=== PATIENT | female | born 1945 | race Caucasian/White ===

== ENCOUNTER 2019-06-16 17:09 | Inpatient (IN) | payer MEDICARE, SELFPAY ==
[2019-06-16] VITALS (7 sets, daily range): BP systolic 154–198; BP diastolic 67–87; PULSE 80–89; RESP 13–17; TEMP 36.4–36.6; O2SAT 94–100; BMI 43.0; BMI 45.8
--- NOTE | 2019-06-16 17:17 | CT_ITS ---
STUDY: CT BRAIN WITHOUT CONTRAST REASON FOR EXAM: Female, 73 years old. Vertigo, nausea/vomiting today, hypertension, diabetes. RADIATION DOSAGE (If Supplied By Facility): CTDIvol = ( 44.99 ) mGy, DLP = ( 748.30 ) mGycm TECHNIQUE: Transaxial CT imaging of the brain was performed without administration of intravenous contrast material. Individualized dose optimization techniques were used for this CT. COMPARISON: 09/07/2016 FINDINGS: Normal soft tissue structures. Normal calvarium. Bilateral lens replacements. Normal size ventricles and extra-axial spaces for the patient''s age. There are areas of decreased attenuation within the white matter tracts of the supratentorial brain, consistent with microvascular disease changes. Normal age-related changes of the basal ganglia. Normal brainstem. Normal cerebellum. There is no intracranial hemorrhage. There are no findings of an acute ischemic infarction. Right maxillary and bilateral ethmoid sinus disease. CT/Brain/Head without Contrast IMPRESSION: No CT evidence of acute infarct or hemorrhage. If there is clinical concern for hyperacute ischemia that is not evident by CT, MRI should be considered if possible. Electronically Signed: Ervin Toledo MD at 18:48 EDT Tel , Service support ,
--- NOTE | 2019-06-16 17:17 | EKG12_ITS ---
Test Reason : Blood Pressure : / mmHG Vent. Rate : 081 BPM Atrial Rate : 081 BPM P-R Int : 164 ms QRS Dur : 084 ms QT Int : 422 ms P-R-T Axes : 049 042 049 degrees QTc Int : 490 ms Normal sinus rhythm Prolonged QT Abnormal ECG Confirmed by LILY LIPSCOMB, SOFIA ([id number]), makeup editor MYLENE ROMERO ([id number]) on 06/23/2019 11:12:47 AM Referred By: Confirmed By:CHERYL BAUTISTA MD
--- NOTE | 2019-06-16 17:19 | ED.VIS.GEN ---
History of Present Illness Chief Complaint: Nausea/Vomiting Informant: Patient Onset: Days Context: Sudden Onset Timing: Intermittent Current Severity: Moderate Maximum Severity: Moderate Narrative: The patient is a 73-year-old female with medical history significant for vertigo, diabetes, chronic kidney disease that presents to the emergency department with vertiginous symptoms. The patient states she had a significant flare last week. She states that she was taking [id number] Dramamine which seemed to help. Today, she was going to use the bathroom. She states that she sat down quickly, and had a sensation of motions. She states if she moves her head quickly, she gets the motion. She does describe some trouble with her balance, but denies any change in vision, or difficulty speaking. She denies any weakness. She has been to the emergency department multiple times for vertiginous symptoms in the past and states this feels similar. She is had no fever or other infectious symptoms. Prior similar symptoms: Yes Recent Illness/Hospitalization: Yes Past Medical History - Allergies and Home Meds Allergies/Adverse Reactions: Allergies Sulfa (Sulfonamide Antibiotics) Allergy (Verified 06/16/19 17:13) Rash lisinopril Adverse Reaction (Verified 06/16/19 17:13) Other Primary Care Physician: Flavia Aldrich MD [Primary Care Provider] - Prior records reviewed: Yes Past Medical History: - - Diabetes, vertigo, chronic kidney disease Surgical History: - - Cataract surgery bilaterally. Smoking Status: Never smoker - Family History Maternal Family History: Reports: Diabetes, Heart Disease, Hypertension Paternal Family History: Reports: High Cholesterol Review of Systems General: Denies: Chills, Fever, Sweats Eyes: Denies: Visual changes - bilaterally, Diplopia ENT: Reports: Bilateral ear pain Cardiovascular: Denies: Chest pain, Palpitations Respiratory: Denies: Dyspnea, Cough, Dyspnea on exertion Gastrointestinal: Reports: Nausea, Vomiting Genitourinary: Denies: Dysuria, Hematuria, Frequency Musculoskeletal: Denies: Back pain, Extremity Pain Skin: Denies: Rash, Wounds Neurological: Denies: Headache, Weakness, Numbness Physical Exam Vital Signs/Narrative: Vital Signs Temp Pulse Resp BP Pulse Ox 06/16/19 17:10 97.6 F L 80 13 179/73 H 100 Inital Vital Signs reviewed: Yes General: Well nourished, Well developed, No Acute Distress Head: Normocephalic, Atraumatic Eyes: Perrl, EOMI ENT: Moist mucous membranes, No rhinorrhea Neck: Supple, Nontender Cardiovascular: Regular rate, Regular rhythm, No murmurs Respiratory: No distress, CTA bilaterally, Chest nontender Abdomen: Soft, Nontender, Nondistended, Normal bowel sounds Back: Nontender, Normal Inspection Extremities: Nontender, No edema Skin: Normal color, No rash Neurological: Alert, Oriented x3, Cranial nerves II-XII grossly intact, Normal Strength, Normal Sensation Psychological: Normal affect, Normal Mood Diagnostic/Tx/Re-eval Clinical Impression(s) from Imaging Studies Brain CT 06/16/19 17:17 IMPRESSION: No CT evidence of acute infarct or hemorrhage. If there is clinical concern for hyperacute ischemia that is not evident by CT, MRI should be considered if possible. Electronically Signed: Ervin Toledo MD at 18:48 EDT Tel , Service support , - Medical Decision Making The patient presents to the emergency department vertiginous symptoms. She does have a history of the same. She states that she had similar symptoms last week, and they abated, but returned today. He has an NIH of 0. She does not have any focal neurologic complaints. However, with rapid head movement, she does have the sensation of motion and rapid left beating nystagmus when looking to the right. IV was established. The patient was given Valium and Zofran. She was feeling improved, but when we attempted to ambulate the patient, she got acutely nauseated and had return of sensation of motion and did vomit. Head CT was obtained which showed chronic change without acute abnormality. Her urine does show some evidence of ketones, and she does have mild renal insufficiency which is chronic. At this point, given the patient's advanced age and her inability to ambulate with her persistent vertiginous symptoms, I do feel that she would benefit from observation. The patient was discussed with the hospitalist. Impression 1. Intractable vertigo ED Disposition - Plan for ED Patient: Referrals: Flavia Aldrich MD [Primary Care Provider] -
[2019-06-16 17:55] LABS: Mucous, Urine 0 SEEN /hpf (<or=2+); Red Blood Cells-Urine 0 SEEN /hpf (0-5)
[2019-06-16 17:58] LABS: Color, Urine Yellow (Yellow); Glucose, Dipstick 250 mg/dl (Normal); Ketone-Dipstick 50 mg/dl (Negative); Leukocyte Esterase-Dipstick 25 /ul (Negative); Nitrite-Dipstick Negative (Negative); Occult Blood-Urine 25 /ul (Negative); Protein-Dipstick 500 mg/dl (Negative); Specific Gravity, Urine 1.025 (1.002-1.030); Urine Bilirubin Dipstick Negative (Negative); Urine Clarity Cloudy (Clear); Urine Urobilinogen Normal (Normal)
[2019-06-16] MEDS: Meclizine HCl 25 MG Tablet PO ×2 (17:58→22:56)
[2019-06-16] MEDS: diazePAM 5 MG Tablet PO (17:58)
[2019-06-16 18:08] LABS: Bacteria 3+ /hpf (None Seen); Squamous Epithelial Cells - UA 0-5 SEEN /hpf (5-10); White Blood Cells 10-25 SEEN /hpf (0-5)
[2019-06-16] MEDS: Ondansetron 4 MG/2 ML Vial IV (18:12)
[2019-06-16 18:20] LABS: Absolute Lymphocyte Count 0.76 X10^3/uL (0.83-4.51); Absolute Neutrophil Count 9.3 X10^3/uL (2.0-7.7); Basophil# 0.02 X10^3/uL; Basophil% 0.2 % (0-1); Eosinophil# 0.02 X10^3/uL; Eosinophils% 0.2 % (0-5); Hematocrit 37.4 % (37-47); Hemoglobin 11.9 g/dL (12.0-15.0); Lymphocyte # 0.76 X10^3/ul (4.0); Lymphocyte % 7.4 % (19-41); Mean Corp Hgb Conc 31.8 g/dL (32-36); Mean Corpuscular Hgb 27.8 pg (27.0-32.0); Mean Corpuscular Volume 87.4 fL (81-99); Mean Platelet Vol. 10.1 fl (6.2-12.0); Monocyte# 0.22 X10^3/uL; Monocyte% 2.1 % (0-10); NRBC Flagged by Analyzer 0 % (0-5); Neutrophil # 9.25 X10^3/uL (2.7-7.7); Neutrophil % 89.5 % (47-70); Platelet Count 301 K/mm3 (150-450); RBC Distribution Width CV 13.9 % (11.6-14.6); RBC Distribution Width SD 44.2 fl (35.1-43.9); Red Blood Count 4.28 M/mm3 (4.2-5.4); White Blood Count 10.3 K/mm3 (4.4-11.0)
[2019-06-16 18:35] LABS: BUN 29 mg/dL (7-18); Creatinine, Serum 1.37 mg/dL (0.55-1.02); Glucose 281 mg/dL (74-106)
[2019-06-16 18:36] LABS: ALB/GLOB Ratio 0.6 RATIO (0.9-2.4); AST(SGOT) 16 U/L (15-37); Alanine Aminotransfer ALT/SGPT 18 U/L (13-56); Albumin, Serum 3.2 g/dL (3.2-5.0); Alkaline Phosphatase 94 U/L (45-117); Anion Gap 8 (5-15); BUN/Creat Ratio 21.2 RATIO (10-20); Calcium,Total 9.4 mg/dL (8.5-10.1); Chloride 106 mmol/L (98-107); EST Glomerular Filtration Rate 40 mL/min (>60); Est Glom Filt Rate - Afr Amer 48 mL/min (>60); Globulin 5.1 g/dL (2.2-4.2); Potassium 4.8 mmol/L (3.5-5.1); Protein, Total 8.3 g/dL (6.4-8.2); Sodium Level 139 mmol/L (136-145)
--- NOTE | 2019-06-16 19:18 | HP.PCM_ITS ---
Problem List (1) Vertigo Status: Acute (2) CKD (chronic kidney disease), stage III Status: Chronic (3) Diabetes mellitus, type II Status: Chronic Qualifiers: Diabetes mellitus intermediate insulin use: without emt intermediate use Diabetes mellitus complication status: with unspecified complications (4) GERD (gastroesophageal reflux disease) Status: Chronic Qualifiers: Esophagitis presence: esophagitis presence not specified Qualified Code(s): K21.9 - Gastro-esophageal reflux disease without esophagitis (5) HLD (hyperlipidemia) Status: Chronic Qualifiers: Hyperlipidemia type: unspecified Qualified Code(s): E78.5 - Hyperlipidemia, unspecified (6) HTN (hypertension) Status: Chronic Qualifiers: Hypertension type: essential hypertension Qualified Code(s): I10 - Essential (primary) hypertension (7) Morbid obesity with BMI of 40.0-44.9, adult Status: Chronic History of Present Illness Date of Admission: 06/16/19 Chief Complaint: vertigo The patient is a 73 year old F with a significant history of hypertension; diabetes mellitus; hyperlipidemia; benign positional vertigo who presented to emergency department with vertiginous symptoms that started a week before presentation and re-occurred on the day of presentation. Associated with his symptoms is tinnitus; nausea and vomiting. In the past she had tinnitus of the left ear. However on this presentation her tinnitus began from the left ear and progressed to her right ear. Emergent department doctor reported that with manipulation of her head patient became vertiginous and had nystagmus. She vomited at the emergency department. At the emergency department when an attempt was made for patient to ambulate she became excessively vertiginous so a decision was made to admit patient. On 09/07/2016 patient was admitted at a hospital and discharged on 09/10/2016. At that visit she was managed for BPPV. Past Medical History Past Medical History (Chronic Problems): Chronic Problems Diabetes mellitus, type II (Chronic) HTN (hypertension) (Chronic) HLD (hyperlipidemia) (Chronic) GERD (gastroesophageal reflux disease) (Chronic) Morbid obesity with BMI of 40.0-44.9, adult (Chronic) CKD (chronic kidney disease), stage III (Chronic) Allergies Sulfa (Sulfonamide Antibiotics) Allergy (Verified 06/16/19 17:13) Rash lisinopril Adverse Reaction (Verified 06/16/19 17:13) Other Home Medications: Ambulatory Orders Medication Instructions Recorded Amlodipine [Norvasc] 5 mg PO DAILY 09/07/16 Atenolol [Tenormin (beta vick)] 50 mg PO DAILY 09/07/16 glipiZIDE [Glucotrol] 5 mg PO BIDAC 09/07/16 Multivitamin [Multiple Vitamins] 1 each PO DAILY 09/08/16 glipiZIDE [Glucotrol] 10 mg PO LUNCH 09/08/16 Diazepam [Valium] 2 mg PO TID PRN PRN #10 tablet 09/10/16 Esomeprazole Magnesium [Nexium 20 mg PO QODAY 06/16/19 24Hr] Losartan Potassium 50 mg PO DAILY 06/16/19 Metformin HCl 500 mg PO BID 06/16/19 Simvastatin [Zocor] 20 mg PO QHS 06/16/19 Sitagliptin Phosphate [Januvia] 50 mg PO DAILY 06/16/19 Surgical History: - - Cataract surgery bilaterally. Psychiatric History: No pertinent psych hx MD DO [facility]IDENT [facility] History: No pertinent MD DO [facility]IDENT [facility] history Lives: Alone Smoking Status: Never smoker - *Family History Maternal History Items: Diabetes, Heart Disease, Hypertension Paternal History Items: High Cholesterol Review of Systems Constitutional: Denies: Chills, Fever, Weight Change HEENT: Denies: Head Aches, Sinus Congestion, Sinus Drainage Cardiovascular: Denies: Chest Pain, Palpitations Respiratory: Denies: Cough, Shortness of breath at rest, Sputum production Gastrointestinal: Reports: Nausea, Vomiting. Denies: Abdominal Pain Genitourinary: Denies: Dysuria Musculoskeletal: Denies: Joint Pain, Joint Tenderness Skin: Denies: Rash, Wounds Neurological: Denies: Numbness, Tingling, Focal weakness Psychiatric: Denies: Anxiety, Depression, Homicidal Ideations, Suicidal Ideations Hematologic/ Lymphatic: Denies: Easy Bruising, Easy Bleeding VTE Information - Inpt Only VTE Present on Admission: No VTE Mechan Device Prophylaxis: None VTE Pharm Prophylaxis ordered?: Yes - Physical Exam Vitals/I&O's: Vital Signs Temp Pulse Resp BP Pulse Ox 97.6 F L 80 13 179/73 H 100 06/16/19 17:10 06/16/19 17:10 06/16/19 17:10 06/16/19 17:10 06/16/19 17:10 Oxygen Delivery Method Room Air Weight: 110.2 kg Body Mass Index (BMI) 43.0 General: Alert, Oriented x3, Cooperative HEENT: Atraumatic, PERRLA, EOMI, Normocephalic Neck: Supple, No JVD, Negative Carotid Bruits Lungs: Clear to auscultation, Normal air movement Cardiovascular: Regular rate, Normal S1, Normal S2, No murmurs Abdomen: Bowel Sounds Present, Soft, Non Tender Extremities: No edema, Capillary Refill Less than 3 Seconds Skin: No rashes, No breakdown Musculoskeletal: No Tenderness to Palpation of Joints or Extremities Neurological: Cranial nerves II-XII grossly intact, - - Strength 5 out of 5 throughout except left leg where motor strength is 4 out of 5 (patient reports a chronic from fall). No dysmetria. Psych/Mental Status: Normal Affect, Appropriate Laboratory Results 06/16/19 17:45: Urine Color Yellow, Urine Clarity Cloudy, Urine pH 5.0, Ur Specific [place] 1.025, Urine Protein 500 H, Urine Glucose (UA) 250 H, Urine Ketones 50 H, Urine Occult Blood 25 H, Urine Nitrite Negative, Urine Bilirubin Negative, Urine Urobilinogen Normal, Ur Leukocyte Esterase 25 H, Urine RBC Pending, Urine WBC Pending, Ur Squamous Epith Cells Pending, Urine Bacteria Pending, Urine Mucus Pending 06/16/19 18:05: WBC 10.3, RBC 4.28, Hgb 11.9 L, Hct 37.4, MCV 87.4, MCH 27.8, MCHC 31.8 L, RDW Std Deviation 44.2 H, RDW Coeff of Umu 13.9, Plt Count 301, MPV 10.1, Immature Gran % (Auto) 0.600, Neut % (Auto) 89.5 H, Lymph % (Auto) 7.4 L, [place] % (Auto) 2.1, Eos % (Auto) 0.2, Baso % (Auto) 0.2, Absolute Neuts (auto) 9.3 H, Absolute Lymphs (auto) 0.76 L, Nucleated RBC % 0 06/16/19 18:05: Sodium 139, Potassium 4.8, Chloride 106, Carbon Dioxide 25.0, Anion Gap 8, BUN 29 H, Creatinine 1.37 H, Estim Creat Clear Calc 29.80, Est GFR (MDRD) Af Amer 48 L, Est GFR (MDRD) Non-Af 40 L, BUN/Creatinine Ratio 21.2 H, Glucose 281 H, Calcium 9.4, Total Bilirubin 0.50, AST 16, ALT 18, Alkaline Phosphatase 94, Total Protein 8.3 H, Albumin 3.2, Globulin 5.1 H, Alb umin/Globulin Ratio 0.6 L Assessment/Plan All Active Problems Vertigo (Acute) The patient is a 73 year old F with a significant history of hypertension; diabetes mellitus; hyperlipidemia; benign positional vertigo who presented to emergency department with vertiginous symptoms; primary trauma; nausea and vomiting consistent with likely previous episode of BPPV. Vertigo Likely from BPPV. Because of her risk factors of hypertension diabetes mellitus and hyperlipidemia we will get MRI of brain. Will put on permissive hypertension with labetalol as needed and hold home blood pressure medications. However it is more likely that patient's symptoms is peripheral as above. Reportedly at home she was taking some anti-vertiginous medication. Placed on scheduled meclizine and PRN diazepam. Antiemetics with PRN Zofran and PRN Compazine. Will get MRI of brain. CKD stage III Likely from hypertension nephrosclerosis and diabetes nephropathy Likely within baseline. Will give gentle IV hydration and repeat BMP in a.m. Diabetes mellitus Urinalysis is remarkable for proteinuria and glycosuria Presentation blood glucose was not within goal. Hold home metformin in hospital setting. Placed on correction scale insulin. Home Glucotrol; Continued. On DPP 4 inhibitors. Microhematuria On discharge recommend repeat urinalysis and follow-up with PCP. DVT Prophylaxis Subcutaneous Lovenox. OBSV E&M: 95530 Initial observation care L3
[2019-06-16] MEDS: 0.9% Normal Saline 1,000 ML 75 ML IV (20:03)
--- NOTE | 2019-06-16 20:16 | ED.RN ---
WILLIS ISAACS NOTIFIED OF PT'S ADMIT TO ROOM 109 PCU
[2019-06-16] MEDS: Insulin Lispro 100 UNIT/ML INSULN.PEN SC (22:55)
[2019-06-16 22:56] LABS: Bedside Glucose 198 mg/dL (70-110)
[2019-06-16] MEDS: Atorvastatin Calcium 10 MG Tablet PO (22:56)
[2019-06-17] VITALS (12 sets, daily range): BP systolic 108–167; BP diastolic 52–78; PULSE 71–91; RESP 16–18; TEMP 36.6–37; O2SAT 94–98; BMI 45.8
[2019-06-17 06:28] LABS: BUN 26 mg/dL (7-18); Creatinine, Serum 1.22 mg/dL (0.55-1.02); Estimated Creatinine Clearance 29.06 ml/min; Glucose 119 mg/dL (74-106)
[2019-06-17 06:29] LABS: Anion Gap 7 (5-15); BUN/Creat Ratio 21.3 RATIO (10-20); Calcium,Total 8.7 mg/dL (8.5-10.1); Chloride 109 mmol/L (98-107); EST Glomerular Filtration Rate 46 mL/min (>60); Est Glom Filt Rate - Afr Amer 55 mL/min (>60); Potassium 3.9 mmol/L (3.5-5.1); Sodium Level 139 mmol/L (136-145)
[2019-06-17] MEDS: Meclizine HCl 25 MG Tablet PO (06:42)
[2019-06-17] MEDS: glipiZIDE 5 MG Tablet PO ×2 (06:42→16:18)
[2019-06-17 07:01] LABS: Bedside Glucose 104 mg/dL (70-110)
--- NOTE | 2019-06-17 08:00 | MRI_ITS ---
We are attempting to reach an attending provider to discuss findings. An addendum with communication details will be sent when the communication is complete. STUDY: MRI BRAIN WITHOUT CONTRAST REASON FOR EXAM: Female, 73 years old. vertigo TECHNIQUE: Standardized multiplanar fat and water weighted pulse sequences were obtained. COMPARISON: 06/16/2019 CT of the head FINDINGS: There is mild cerebral atrophy with widening of the extra-axial spaces and ventricular dilatation. There are multiple white matter hyperintensities, distributed throughout the deep white matter tracts of the cerebral hemispheres, consistent with moderate chronic white matter ischemic changes. There is approximately 5 cm restricted diffusion of the superior right cerebellar hemisphere and vermis with drop of signal on ADC map, consistent with acute infarct. Normal bilateral basal ganglia. Normal thalami. There is no extra-axial fluid accumulation. Normal flow voids within the major intracranial circulation suggesting patency by spin echo criteria. Normal sella turcica, pituitary gland, infundibular stalk, optic chiasm and hypothalamus. Normal tectal plate and pineal gland. Normal midbrain, tasha and medulla. There is moderate paranasal sinus disease. MRI/Brain without Contrast IMPRESSION: Acute right cerebellar infarct. Electronically Signed: Carole Workman MD at 10:35 EDT Tel , Service support ,
[2019-06-17] MEDS: LINAGLIPTIN 5 MG TABLET PO (08:10)
[2019-06-17] MEDS: Enoxaparin 40 MG/0.4 ML Syringe SC (08:10)
[2019-06-17] MEDS: LORazepam 2 MG/ML Syringe 1 MG IV (08:20)
[2019-06-17] MEDS: Insulin Lispro 100 UNIT/ML INSULN.PEN SC ×3 (11:16→22:13)
[2019-06-17 11:35] LABS: Bedside Glucose 219 mg/dL (70-110)
--- NOTE | 2019-06-17 11:45 | ECHOCS_ITS ---
Reason For Study: TIA/CVA Procedure This was a 2D Doppler, Color Flow transthoracic echocardiogram. The study was technically difficult. Exam performed portable in patient room. Left Ventricle Normal LV size. Sigmoid septum. The estimated ejection fraction is 60 %. Stage 2 diastolic dysfunction. No regional wall motion abnormalities noted. Right Ventricle Normal RV size. Normal systolic function. Atria The left atrium is mildly enlarged. Normal right atrium. Mitral Valve There is moderate to severe mitral annular calcification. Tricuspid Valve Normal tricuspid valve. Aortic Valve Trisinus/trileaflet aortic valve. Mild focal aortic valve calcification. Great Vessels Normal aortic root. The pulmonary artery is normal size. Normal inferior vena cava. Pericardium/Pleural No pericardial effusion. Medication Performed a rapid injection of agitated mix of 9 cc saline and 1cc air to assess for atrial septal defect. Diluted definity 5ml given slow IV push to enhance endocardial definition. MMode/2D Measurements & Calculations LVIDd: 4.3 cm IVSd: 1.5 cm Ao root diam: 2.9 cm LVIDs: 2.5 cm LVPWd: 1.0 cm RVDd: 2.9 cm FS: 40.7 % LAV(MOD-bp): 81.3 ml LA A4 area: 24.2 cm2 LA dimension(2D): 3.9 cm LAV(MOD-bp) Indexed: 40.7 ml/m2 LAV(MOD-sp2): 83.2 ml LAV(MOD-sp4): 76.7 ml RA A4 area: 16.8 cm2 Doppler Measurements & Calculations MV E max gregory: 152.6 cm/sec Lat Peak E' Gregory: 4.8 cm/sec Med Peak E' Gregory: 3.6 cm/sec MV A max gregory: 158.0 cm/sec E/E' lat: 31.5 E/E' med: 42.1 MV E/A: 0.97 MV V2 max: 176.0 cm/sec MV P1/2t max gregory: 145.8 cm/sec Ao V2 max: 165.5 cm/sec MV max P.4 mmHg MV P1/2t: 117.4 msec Ao max P.0 mmHg MV V2 mean: 120.2 cm/sec MV dec slope: 363.9 cm/sec2 MV mean P.1 mmHg MVA(P1/2t): 1.9 cm2 MV V2 VTI: 46.8 cm LV V1 max: 127.0 cm/sec PA V2 max: 92.0 cm/sec LV V1 max P.5 mmHg Interpretation Summary Normal LV size. The estimated ejection fraction is 60 %. Stage 2 diastolic dysfunction. The left atrium is mildly enlarged. The study was technically difficult. Contrast injection was performed. Ordering Physician: Henry, Kimberlee Referring Physician: Flavia Aldrich M.D. Performed By: Sherly Negron RDCS
--- NOTE | 2019-06-17 11:52 | CDU_ITS ---
Reason For Study: CVA Rt. Velocities/BP Lt. Velocities/BP Prox CCA 99.5/10.8 cm/sec. Prox CCA 61.7/8.8 cm/sec. Mid CCA 63.0/8.2 cm/sec. Mid CCA 71.1/10.7 cm/sec. Dist CCA 60.4/9.5 cm/sec. Dist CCA 79.6/9.7 cm/sec. Prox ICA 64.3/13.4 cm/sec. Prox ICA 59.7/16.8 cm/sec. Mid ICA 75.4/17.0 cm/sec. Mid ICA 83.9/25.6 cm/sec. Dist ICA 86.4/26.1 cm/sec. Dist ICA 86.4/24.3 cm/sec. Rt. ICA/CCA = 1.4. Lt. ICA/CCA = 1.2. Prox ECA 69.5 cm/sec. Prox ECA 98.1 cm/sec. Rt. Vert. 29.6/10.7 cm/sec. Lt. Vert. 63.0/19.0 cm/sec. Right Extracranial There is heterogeneous, irregular atherosclerotic plaque noted in the right common carotid artery. There is heterogeneous, irregular atherosclerotic plaque noted in the right internal carotid artery. There is homogeneous, smooth atherosclerotic plaque noted in the right external carotid artery. Antegrade flow is noted in the right vertebral artery. Left Extracranial There is heterogeneous, irregular atherosclerotic plaque noted in the left common carotid artery. There is heterogeneous, irregular atherosclerotic plaque noted in the left internal carotid artery. The left internal carotid artery is very tortuous. There is homogeneous, smooth atherosclerotic plaque noted in the left external carotid artery. Antegrade flow is noted in the left vertebral artery. Procedure Carotid Duplex [id number]. The exam was diagnostic. Exam performed portable in patient room. Interpretation Summary Mild irregular heterogenous plaque right common carotid and proximal internal carotid <50% stenosis right internal carotid <50% stenosis right external carotid Tortuous left internal carotid with mild irregular plaque within the left common carotid and internal carotid <50% stenosis left internal carotid <50% stenosis left external carotid Patent, antegrade vertebrals bilaterally Ordering Physician: Kimberlee Figueroa Performed By: Hubert Hoffman RVT
[2019-06-17] MEDS: glipiZIDE 10 MG Tablet PO (12:15)
[2019-06-17] MEDS: Aspirin 81 MG TAB.CHEW PO (12:15)
--- NOTE | 2019-06-17 12:20 | CASEMGMT ---
RN SABAS TAX COMPLIANCE OFFICER CM to room to meet with patient for initial transition planning/care coordination assessment. EDNA OBREGON introduced self and role at [facility]. Pt voices understanding and consents to assessment at this time. Pt resting in bed in no distress at this time. Pt is A/O at this time and answers all questions appropriately. Care providers, pharmacy, and demographics verified/updated at this time. PCP: Dr Aldrich Specialists: Optical Effects Camera Operator, Opthalmologist--Dr Limon Preferred Pharmacy: [facility] Retail Insurance: [employer] Prescription Benefit: Yes Living Will/HPOA: Has both LW and Healthcare POA, who is her sister, Norah Weiner. Copies not on file @ [facility]. Pt states she will see if Norah can bring them in. LNOK: sisterNorah Living Arrangements: Lives alone in 2-story home. [employer]. 3 steps to enter. had been independent prior to hospitalization w/ADL's and most IADL's. has hires a note teller to come every 2 wks. Transportation: Pt states was driving prior to hospitalization/vertigo. SisterNorah, can assist as needed. DME: has the following DME: walk-in shower, rails/grab bars, hand held shower, quad cane, glucometer. also has a walker, but does not use it. Pt states no need for further DME at this time. HHC/SNF: No history of either. Pt states she is not sure if she will be safe to return home @ discharge. PT/OT evals pending. CM to follow for discharge planning/needs. Pt voices no further concerns/needs at this time. Advised pt to ask for CM if any further questions/concerns/needs arise. Voices understanding. PLAN: TBD. PT/OT evals pending. If SNF recommended/needed, pt's 1st choice is [facility]. If pt/vertigo improves enough for pt to be able to return home, pt would like HHC. Given list of local HHC agencies. [facility] Elijah CHILDS RN, CM
--- NOTE | 2019-06-17 12:26 | PCM.PROGNOTE ---
<Kimberlee Figueroa - Last Filed: 06/17/19 12:38> Subjective: Patient seen and examined. Reports ongoing vertigo/dizziness. Underwent MRI of brain which revealed acute right cerebellar infarct. Patient denies other neuro symptoms or focal deficits. Plan to consult tele-neurology. - Physical Exam Vitals/I&O's: Vital Signs Temp Pulse Resp BP Pulse Ox 97.8 F 91 18 167/77 H 94 06/17/19 11:54 06/17/19 11:54 06/17/19 11:54 06/17/19 11:54 06/17/19 11:54 Oxygen Delivery Method Room Air Weight: 234 lb 9.149 oz Body Mass Index (BMI) 45.8 Intake and Output for Last 24 Hours 06/15/19 06/16/19 06/17/19 23:59 23:59 23:59 Intake Total 740 / 740 1440 / 1440 Balance 740 / 740 1440 / 1440 General: Alert, Oriented x3, Cooperative HEENT: Atraumatic, PERRLA, EOMI, Normocephalic Neck: Supple, No JVD, Negative Carotid Bruits Lungs: Clear to auscultation, Normal air movement Cardiovascular: Regular rate, Regular Rhythm, Normal S1, Normal S2, No murmurs Abdomen: Bowel Sounds Present, Soft, Non Tender, Non-Distended, Obese Extremities: No clubbing, No cyanosis, Edema - non-pitting lower extremity Skin: No rashes, No breakdown Musculoskeletal: No Tenderness to Palpation of Joints or Extremities Neurological: Cranial nerves II-XII grossly intact, Neuro grossly intact Psych/Mental Status: Normal Affect, Appropriate Laboratory Results 06/16/19 17:45: Urine Color Yellow, Urine Clarity Cloudy, Urine pH 5.0, Ur Specific [place] 1.025, Urine Protein 500 H, Urine Glucose (UA) 250 H, Urine Ketones 50 H, Urine Occult Blood 25 H, Urine Nitrite Negative, Urine Bilirubin Negative, Urine Urobilinogen Normal, Ur Leukocyte Esterase 25 H, Urine RBC 0 SEEN, Urine WBC 10-25 SEEN, Ur Squamous Epith Cells 0-5 SEEN, Urine Bacteria 3+, Urine Mucus 0 SEEN 06/16/19 18:05: WBC 10.3, RBC 4.28, Hgb 11.9 L, Hct 37.4, MCV 87.4, MCH 27.8, MCHC 31.8 L, RDW Std Deviation 44.2 H, RDW Coeff of Umu 13.9, Plt Count 301, MPV 10.1, Immature Gran % (Auto) 0.600, Neut % (Auto) 89.5 H, Lymph % (Auto) 7.4 L, [place] % (Auto) 2.1, Eos % (Auto) 0.2, Baso % (Auto) 0.2, Absolute Neuts (auto) 9.3 H, Absolute Lymphs (auto) 0.76 L, Nucleated RBC % 0 06/16/19 18:05: Sodium 139, Potassium 4.8, Chloride 106, Carbon Dioxide 25.0, Anion Gap 8, BUN 29 H, Creatinine 1.37 H, Estim Creat Clear Calc 29.80, Est GFR (MDRD) Af Amer 48 L, Est GFR (MDRD) Non-Af 40 L, BUN/Creatinine Ratio 21.2 H, Glucose 281 H, Calcium 9.4, Total Bilirubin 0.50, AST 16, ALT 18, Alkaline Phosphatase 94, Total Protein 8.3 H, Albumin 3.2, Globulin 5.1 H, Albumin/Globulin Ratio 0.6 L 06/16/19 22:50: POC Glucose 198 H 06/17/19 05:50: Sodium 139, Potassium 3.9, Chloride 109 H, Carbon Dioxide 23.0, Anion Gap 7, BUN 26 H, Creatinine 1.22 H, Estim Creat Clear Calc 29.06, Est GFR (MDRD) Af Amer 55 L, Est GFR (MDRD) Non-Af 46 L, BUN/Creatinine Ratio 21.3 H, Glucose 119 H, Calcium 8.7 06/17/19 06:40: POC Glucose 104 06/17/19 11:15: POC Glucose 219 H 06/17/19 12:03: Troponin I Pending Current Medications Aspirin (Aspirin, Baby) 81 mg PO DAILY@0800 [facility] Last Admin: 06/17/19 12:15 Dose: 81 mg Documented by: Atorvastatin Calcium (Lipitor) 10 mg PO QHS [facility] Last Admin: 06/16/19 22:56 Dose: 10 mg Documented by: Atorvastatin Calcium (Lipitor) 80 mg PO QHS [facility] Diazepam (Valium) 5 mg PO Q8H PRN PRN PRN Reason: VERTIGO Enoxaparin Sodium (Lovenox) 40 mg SC DAILY [facility] Last Admin: 06/17/19 08:10 Dose: 40 mg Documented by: Glipizide (Glucotrol) 5 mg PO BIDAC [facility] Last Admin: 06/17/19 06:42 Dose: 5 mg Documented by: Glipizide (Glucotrol) 10 mg PO LUNCH [facility] Last Admin: 06/17/19 12:15 Dose: 10 mg Documented by: Glucagon () 1 mg IM .X1 PRN PRN Reason: Hypoglycemia Dextrose (Dextrose 10%-Water) 250 mls @ 999 mls/hr IV .Q16M PRN; Protocol PRN Reason: HYPOGLYCEMIA Insulin Human Lispro (Humalog Kwikpen (Bkc)) 0 unit SC ACHS [facility]; Protocol Last Admin: 06/17/19 11:16 Dose: 4 units Documented by: Labetalol HCl (Trandate) 10 mg IV Q10M PRN PRN PRN Reason: to maintain BP goals Linagliptin (Tradjenta) 5 mg PO DAILY [facility] Last Admin: 06/17/19 08:10 Dose: 5 mg Documented by: Meclizine HCl (Antivert) 25 mg PO TID [facility] Last Admin: 06/17/19 06:42 Dose: 25 mg Documented by: Ondansetron HCl (Zofran) 4 mg IV Q6H PRN PRN PRN Reason: NAUSEA/VOMITING Pantoprazole Sodium (Protonix) 20 mg PO QODAY [facility] Prochlorperazine Edisylate (Compazine Iv) 5 mg IV Q4H PRN PRN PRN Reason: Breakthrough Nausea/Vomiting Sodium Chloride () 10 - 40 ml IV UD PRN PRN Reason: SALINE FLUSH Medical Necessity - Tobacco Use Smoking Status: Never smoker Tobacco Use: Non-smoker Assessment/Plan All Active Problems Vertigo (Acute) 1. 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 [facility]. Aspirin, statin. Obtain echo. Carotid ultrasound ordered. Consult tele-neurology. PT/OT/ST. 2. Type 2 diabetes mellitus-hold oral regimen. Accu-Cheks with sliding scale insulin. Check hemoglobin A1c. 3. Hypertension-permissive given #1. Hold home oral regimen. PRN labetalol for SBP >220. 4. Hyperlipidemia-continue high-dose statin. Fasting lipid panel in a.m. 5. Asymptomatic bacteriuria with microhematuria-repeat UA with urine culture if patient becomes symptomatic. Otherwise outpatient follow-up. 6. Morbid obesity-encouraged diet lifestyle modifications. 7. GERD-continue PPI. DVT prophylaxis-Lovenox subcu This patient was seen by AILEEN Barrientos under the supervision of Dr. Michelle. <Miguel AngelJane E - Last Filed: 06/17/19 13:22> - Physical Exam Vitals/I&O's: Vital Signs Temp Pulse Resp BP Pulse Ox 97.8 F 91 18 167/77 H 94 06/17/19 11:54 06/17/19 11:54 06/17/19 11:54 06/17/19 11:54 06/17/19 11:54 Oxygen Delivery Method Room Air Weight: 234 lb 9.149 oz Body Mass Index (BMI) 45.8 Intake and Output for Last 24 Hours 06/15/19 06/16/19 06/17/19 23:59 23:59 23:59 Intake Total 740 / 740 1440 / 1440 Balance 740 / 740 1440 / 1440 Laboratory Results 06/16/19 17:45: Urine Color Yellow, Urine Clarity Cloudy, Urine pH 5.0, Ur Specific [place] 1.025, Urine Protein 500 H, Urine Glucose (UA) 250 H, Urine Ketones 50 H, Urine Occult Blood 25 H, Urine Nitrite Negative, Urine Bilirubin Negative, Urine Urobilinogen Normal, Ur Leukocyte Esterase 25 H, Urine RBC 0 SEEN, Urine WBC 10-25 SEEN, Ur Squamous Epith Cells 0-5 SEEN, Urine Bacteria 3+, Urine Mucus 0 SEEN 06/16/19 18:05: WBC 10.3, RBC 4.28, Hgb 11.9 L, Hct 37.4, MCV 87.4, MCH 27.8, MCHC 31.8 L, RDW Std Deviation 44.2 H, RDW Coeff of Umu 13.9, Plt Count 301, MPV 10.1, Immature Gran % (Auto) 0.600, Neut % (Auto) 89.5 H, Lymph % (Auto) 7.4 L, [place] % (Auto) 2.1, Eos % (Auto) 0.2, Baso % (Auto) 0.2, Absolute Neuts (auto) 9.3 H, Absolute Lymphs (auto) 0.76 L, Nucleated RBC % 0 06/16/19 18:05: Sodium 139, Potassium 4.8, Chloride 106, Carbon Dioxide 25.0, Anion Gap 8, BUN 29 H, Creatinine 1.37 H, Estim Creat Clear Calc 29.80, Est GFR (MDRD) Af Amer 48 L, Est GFR (MDRD) Non-Af 40 L, BUN/Creatinine Ratio 21.2 H, Glucose 281 H, Calcium 9.4, Total Bilirubin 0.50, AST 16, ALT 18, Alkaline Phosphatase 94, Total Protein 8.3 H, Albumin 3.2, Globulin 5.1 H, Albumin/Globulin Ratio 0.6 L 06/16/19 22:50: POC Glucose 198 H 06/17/19 05:50: Sodium 139, Potassium 3.9, Chloride 109 H, Carbon Dioxide 23.0, Anion Gap 7, BUN 26 H, Creatinine 1.22 H, Estim Creat Clear Calc 29.06, Est GFR (MDRD) Af Amer 55 L, Est GFR (MDRD) Non-Af 46 L, BUN/Creatinine Ratio 21.3 H, Glucose 119 H, Calcium 8.7 06/17/19 06:40: POC Glucose 104 06/17/19 11:15: POC Glucose 219 H 06/17/19 12:03: Troponin I < 0.015 06/17/19 12:37: Hemoglobin A1c 7.4 H Current Medications Aspirin (Aspirin, Baby) 81 mg PO DAILY@0800 [facility] Last Admin: 06/17/19 12:15 Dose: 81 mg Documented by: Atorvastatin Calcium (Lipitor) 80 mg PO QHS [facility] Diazepam (Valium) 5 mg PO Q8H PRN PRN PRN Reason: VERTIGO Enoxaparin Sodium (Lovenox) 40 mg SC DAILY [facility] Last Admin: 06/17/19 08:10 Dose: 40 mg Documented by: Glipizide (Glucotrol) 5 mg PO BIDAC [facility] Last Admin: 06/17/19 06:42 Dose: 5 mg Documented by: Glipizide (Glucotrol) 10 mg PO LUNCH [facility] Last Admin: 06/17/19 12:15 Dose: 10 mg Documented by: Glucagon () 1 mg IM .X1 PRN PRN Reason: Hypoglycemia Dextrose (Dextrose 10%-Water) 250 mls @ 999 mls/hr IV .Q16M PRN; Protocol PRN Reason: HYPOGLYCEMIA Insulin Human Lispro (Humalog Kwikpen (Bkc)) 0 unit SC ACHS [facility]; Protocol Last Admin: 06/17/19 11:16 Dose: 4 units Documented by: Labetalol HCl (Trandate) 10 mg IV Q10M PRN PRN PRN Reason: to maintain BP goals Linagliptin (Tradjenta) 5 mg PO DAILY [facility] Last Admin: 06/17/19 08:10 Dose: 5 mg Documented by: Meclizine HCl (Antivert) 25 mg PO TID PRN PRN Reason: Vertigo Ondansetron HCl (Zofran) 4 mg IV Q6H PRN PRN PRN Reason: NAUSEA/VOMITING Pantoprazole Sodium (Protonix) 20 mg PO QODAY [facility] Prochlorperazine Edisylate (Compazine Iv) 5 mg IV Q4H PRN PRN PRN Reason: Breakthrough Nausea/Vomiting Sodium Chloride () 10 - 40 ml IV UD PRN PRN Reason: SALINE FLUSH Assessment/Plan Hospitalist note: I am seeing this patient in conjunction with Kimberlee Figueroa. I independently seen and examined the patient. Progress note above, laboratory data and imaging studies reviewed and I concur with the above treatment plan. Today, patient still complaining of vertigo with nausea upon ambulation especially when she went down for MRI. She feels better with rest. Denied blurry vision, focal weakness. MRI performed and revealed acute right cerebellar infarct. Process likely related, other vital signs are stable. - Physical Exam General: Alert, Oriented x3, Cooperative, No apparent distress. HEENT: Atraumatic, PERRLA, EOMI. Neck: Supple, No JVD, Negative Carotid Bruits, Trachea Midline, Thyroid Normal. Lungs: Clear to auscultation, Normal air movement, No rhonchi, No wheeze, No rales. Cardiovascular: Regular rate, Regular Rhythm, Normal S1, Normal S2, PMI Normal. Abdomen: Bowel Sounds Present, Soft, Non Tender, Non-Distended, No Hepato-splenomegaly. Extremities: No clubbing, No cyanosis, No edema Skin: No rashes, No breakdown Neurological: Cranial nerves are intact, normal power and tone of all limbs but she does have nystagmus. Assessment and plan: #1 acute right similar infarct: With no significant motor deficit apart from vertigo. Blood pressure slight elevated, other vital signs are stable. Started on aspirin and statins. Plan for 2D echocardiogram, bilateral carotid Doppler, consult tele-neurology, PT OT evaluation and treatment. #2 hypertension: We will allow permissive hypertension, blood pressure slight elevated, continue current medications. #3 other chronic medical problems: Stable, continue current medications as above. This note was generated with Familink dictation software. It may contain incorrect words, spelling, and punctuation that were not noted in checking the note before signing. Inpatient E&M: 75655 Subs Hosp L2
[2019-06-17 13:09] LABS: Hemoglobin A1c 7.4 % (4.2-6.3)
--- NOTE | 2019-06-17 13:18 | CASEMGMT ---
SW completed a PHQ 9 with patient as she had a Stroke. She scored a 1 which indicates minimal depression. Renée HALL MSW
[2019-06-17] MEDS: Clopidogrel Bisulfate 75 MG Tablet PO (16:18)
[2019-06-17 16:46] LABS: Bedside Glucose 180 mg/dL (70-110)
[2019-06-17] MEDS: Atorvastatin Calcium 80 MG Tablet PO (22:15)
[2019-06-17 22:21] LABS: Bedside Glucose 168 mg/dL (70-110)
[2019-06-18] VITALS (15 sets, daily range): BP systolic 151–168; BP diastolic 55–90; PULSE 75–102; RESP 17–18; TEMP 36.8–37.7; O2SAT 92–97; BMI 45.8
[2019-06-18] MEDS: Insulin Lispro 100 UNIT/ML INSULN.PEN SC ×4 (06:37→21:32)
[2019-06-18 06:45] LABS: Bedside Glucose 214 mg/dL (70-110)
[2019-06-18] MEDS: glipiZIDE 5 MG Tablet PO ×2 (08:12→16:32)
[2019-06-18] MEDS: Enoxaparin 40 MG/0.4 ML Syringe SC (08:53)
[2019-06-18] MEDS: Aspirin 81 MG TAB.CHEW PO (08:53)
[2019-06-18] MEDS: LINAGLIPTIN 5 MG TABLET PO (08:54)
[2019-06-18] MEDS: Pantoprazole Sodium 20 MG Tablet PO (08:54)
[2019-06-18] MEDS: Clopidogrel Bisulfate 75 MG Tablet PO (08:54)
--- NOTE | 2019-06-18 08:58 | CASEMGMT ---
KARIS spoke with patient about a d/c plan. She would like to try the Inpatient Rehab Unit at [facility]. SW told her we will try for this and if her insurance does not approve she will need to think about SNF. KARIS explained she will stay here until we get an answer from insurance and that likely would not be today. KARIS will let her know as soon as KARIS hears something. KARIS called Marisel in the Rehab Unit and left her a voice mail asking her to please start the pre-cert. Plan: [facility] 4th floor Rehab Unit pending insurance Renée HALL MSW
--- NOTE | 2019-06-18 10:01 | PCM.PROGNOTE ---
Subjective: Chief complaint: Follow-up after admission for vertigo, found to have acute right cerebellar infarct. Patient seen and examined. No acute events overnight. She still complaining of mild vertigo upon ambulation. No focal weakness. She has been having some balance issues upon walking. Blood pressure slightly better, other vital signs are stable. - Physical Exam Vitals/I&O's: Vital Signs Temp Pulse Resp BP Pulse Ox 98.7 F 99 18 167/85 H 94 06/18/19 08:52 06/18/19 08:52 06/18/19 08:52 06/18/19 08:52 06/18/19 08:52 Oxygen Delivery Method Room Air Weight: 234 lb 9.149 oz Body Mass Index (BMI) 45.8 Intake and Output for Last 24 Hours 06/16/19 06/17/19 06/18/19 23:59 23:59 23:59 Intake Total 740 / 740 1860 / 1860 Balance 740 / 740 1860 / 1860 General: Alert, Oriented x3, Cooperative, No apparent distress HEENT: Atraumatic, PERRLA, EOMI, Normocephalic Oral: Moist Mucosa, No Gingival or Mucosal Lesions/ Ulcerations Neck: Supple, No JVD, Negative Carotid Bruits, Trachea Midline, Thyroid Normal Size and Texture Lungs: Clear to auscultation, Normal air movement, No rhonchi, No wheeze, No rales, Diminished Cardiovascular: Regular rate, Regular Rhythm, Normal S1, Normal S2, PMI Normal Abdomen: Bowel Sounds Present, Soft, Non Tender, Non-Distended, No Hepato-splenomegaly, Obese Extremities: No clubbing, No cyanosis, No edema Skin: No rashes, No breakdown Lymphatic: No Cervical, Supraclavicular, or Inguinal Adenopathy Neurological: Cranial nerves II-XII grossly intact, Motor Exam 5/5 strength throughout Psych/Mental Status: Normal Affect, Appropriate, Alert and oriented to time, place, person, mood and affect Laboratory Results 06/17/19 11:15: POC Glucose 219 H 06/17/19 12:03: Troponin I < 0.015 06/17/19 12:37: Hemoglobin A1c 7.4 H 06/17/19 16:15: POC Glucose 180 H 06/17/19 22:11: POC Glucose 168 H 06/18/19 06:32: POC Glucose 214 H Clinical Impression(s) from Imaging Studies Brain MRI 06/17/19 08:00 IMPRESSION: Acute right cerebellar infarct. Electronically Signed: Carole Workman MD at 10:35 EDT Tel , Service support , ADDENDUM: 06/17/19 1058 IMPRESSION: Acute right cerebellar infarct. N.B. : The above information has been verbally conveyed by Carole Workman MD to Keren Justice RN, on 06/17/2019 10:51:24 (ET). Electronically Signed: Carole Workman MD at 10:35 EDT Tel , Service support , Current Medications Aspirin (Aspirin, Baby) 81 mg PO DAILY@0800 [facility] Last Admin: 06/18/19 08:53 Dose: 81 mg Documented by: Atorvastatin Calcium (Lipitor) 80 mg PO QHS [facility] Last Admin: 06/17/19 22:15 Dose: 80 mg Documented by: Clopidogrel Bisulfate (Plavix) 75 mg PO DAILY [facility] Last Admin: 06/18/19 08:54 Dose: 75 mg Documented by: Diazepam (Valium) 5 mg PO Q8H PRN PRN PRN Reason: VERTIGO Enoxaparin Sodium (Lovenox) 40 mg SC DAILY [facility] Last Admin: 06/18/19 08:53 Dose: 40 mg Documented by: Glipizide (Glucotrol) 5 mg PO BIDAC [facility] Last Admin: 06/18/19 08:12 Dose: 5 mg Documented by: Glipizide (Glucotrol) 10 mg PO LUNCH [facility] Last Admin: 06/17/19 12:15 Dose: 10 mg Documented by: Glucagon () 1 mg IM .X1 PRN PRN Reason: Hypoglycemia Dextrose (Dextrose 10%-Water) 250 mls @ 999 mls/hr IV .Q16M PRN; Protocol PRN Reason: HYPOGLYCEMIA Insulin Human Lispro (Humalog Kwikpen (Bkc)) 0 unit SC [facility]; Protocol Last Admin: 06/18/19 06:37 Dose: 4 units Documented by: Labetalol HCl (Trandate) 10 mg IV Q10M PRN PRN PRN Reason: to maintain BP goals Linagliptin (Tradjenta) 5 mg PO DAILY [facility] Last Admin: 06/18/19 08:54 Dose: 5 mg Documented by: Meclizine HCl (Antivert) 25 mg PO TID PRN PRN Reason: Vertigo Ondansetron HCl (Zofran) 4 mg IV Q6H PRN PRN PRN Reason: NAUSEA/VOMITING Pantoprazole Sodium (Protonix) 20 mg PO QODAY [facility] Last Admin: 06/18/19 08:54 Dose: 20 mg Documented by: Prochlorperazine Edisylate (Compazine Iv) 5 mg IV Q4H PRN PRN PRN Reason: Breakthrough Nausea/Vomiting Sodium Chloride () 10 - 40 ml IV UD PRN PRN Reason: SALINE FLUSH Medical Necessity - Tobacco Use Smoking Status: Never smoker Tobacco Use: Non-smoker Assessment/Plan All Active Problems Vertigo (Acute) This is a 73 years old female patient presented to the emergency because of vertigo, found to have acute right cerebellar infarct. #1 acute right cerebellar infarct: MRI brain reviewed. She is on aspirin, statins and Plavix. Recommendations by tele-neurology reviewed. Blood pressure is at goal, slight elevated which is expected. EKG revealed normal sinus rhythm without evidence of cardiac arrhythmias or acute segment changes. 2D echocardiogram revealed normal LV size and function, ejection fraction was 60%, stage II diastolic dysfunction and mildly enlarged left atrium. Bilateral carotid Doppler revealed less than 50% stenosis of the right internal and external carotids as well as less than 50% stenosis of the left internal and external carotids. Plan for PT OT evaluation and treatment, placement to inpatient rehabilitation pending insurance approval. #2 hypertension: Blood pressure is at goal, slight elevated and heart rate has been around 100, plan to continue IV labetalol PRN. Norvasc, losartan and atenolol held for permissive hypertension. Will resume atenolol, keep holding Norvasc and losartan. #3 type 2 diabetes mellitus: Blood sugar has been stable, hemoglobin A1c was 7.4. Continue glipizide and sliding scale, keep holding metformin. #4 hyperlipidemia: Continue high intensity statins. #5 GERD: Stable, continue Protonix. #6 DVT prophylaxis: Subcu Lovenox. This note was generated with adBriteation software. It may contain incorrect words, spelling, and punctuation that were not noted in checking the note before signing. Inpatient E&M: 58030 Subs Hosp L2
[2019-06-18] MEDS: glipiZIDE 10 MG Tablet PO (11:14)
[2019-06-18] MEDS: Atenolol 50 MG Tablet PO (11:14)
[2019-06-18 11:30] LABS: Bedside Glucose 246 mg/dL (70-110)
--- NOTE | 2019-06-18 14:56 | CHAPLAIN ---
Type of Pastoral Visit _x__ Initial Visit ___ Follow-up Visit ___ On-call Visit ___ General Patient Visit ___ Spiritual Assessment ___ Family Conference ___ Bereavement ___ Rapid Response ___ Code Blue ___ Other (describe below) Pastoral Care Referral From _x__ Patient ___ Family ___ Nurse ___ Physician ___ Multiple Punch Press Operator ___ Full Time Babysitter ___ Other (describe below) Sacrament/Intervention _x__ Active listening ___ Anointing ___ Druze ___ Bereavement ___ Communion ___ Far[place] exploration ___ ___ Life review ___ Prayer ___ Reconciliation ___ Sacrament of Sick ___ Supportive presence ___ Wedding ___ Other (describe below) Pastoral Comments
[2019-06-18 16:40] LABS: Bedside Glucose 222 mg/dL (70-110)
[2019-06-18] MEDS: Atorvastatin Calcium 80 MG Tablet PO (21:34)
[2019-06-18 21:41] LABS: Bedside Glucose 196 mg/dL (70-110)
[2019-06-19 03:08] VITALS: PULSE 74
[2019-06-19 03:50] VITALS: BP 161/75; PULSE 72; RESP 15; TEMP 37.1; O2SAT 92
[2019-06-19] MEDS: Insulin Lispro 100 UNIT/ML INSULN.PEN SC (06:34)
[2019-06-19 06:35] LABS: Bedside Glucose 191 mg/dL (70-110)
[2019-06-19 06:40] VITALS: BP 160/73; PULSE 72; RESP 17; TEMP 37.1; O2SAT 96
[2019-06-19 07:00] VITALS: PULSE 71
[2019-06-19 07:35] VITALS: O2SAT 95
--- NOTE | 2019-06-19 09:30 | DCINST_ITS ---
You will use the following diet at home:: Calorie/Carbohydrate Controlled (specify 1200, 1400, etc) - 1800 joe., Cardiac Your food should be the consistency of: Regular Discharge Activity: Return to Normal Activity Weight Bearing Status: Weight bearing as tolerated Call your doctor if you observe: Fever of 101 or Higher, Numbness or Tingling, Shortness of breath, Dizziness, Fainting spells, Chest pain, Increased palpitations (irregular heartbeat), Uncontrolled pain Additional Instructions: Plavix will be for 21 days only according to neurology recommendation, patient received 1 day of Plavix already. Allergies/Adverse Reactions: Allergies Sulfa (Sulfonamide Antibiotics) Allergy (Verified 06/16/19 17:13) Rash lisinopril Adverse Reaction (Verified 06/16/19 20:15) cough Medications to take at Discharge Amlodipine [Norvasc] 5 mg PO DAILY 09/07/16 Atenolol [Tenormin (beta vick)] 50 mg PO DAILY 09/07/16 glipiZIDE [Glucotrol] 5 mg PO BIDAC 09/07/16 Multivitamin [Multiple Vitamins] 1 each PO DAILY 09/08/16 glipiZIDE [Glucotrol] 10 mg PO LUNCH 09/08/16 Esomeprazole Magnesium [Nexium 24Hr] 20 mg PO QODAY 06/16/19 Losartan Potassium 50 mg PO DAILY 06/16/19 Metformin HCl 500 mg PO BID 06/16/19 Sitagliptin Phosphate [Januvia] 50 mg PO DAILY 06/16/19 Aspirin [Aspirin, Baby] 81 mg PO DAILY@0800 #90 tab.chew 06/19/19 Atorvastatin Calcium [Lipitor] 80 mg PO QHS #90 tab 06/19/19 Clopidogrel Bisulfate [Plavix] 75 mg PO DAILY #20 tab 06/19/19 The following prescriptions were given: Aspirin [Aspirin, Baby] 81 mg PO DAILY@0800 #90 tab.chew Prescription Printed Atorvastatin Calcium [Lipitor] 80 mg PO QHS #90 tab Prescription Printed Clopidogrel Bisulfate [Plavix] 75 mg PO DAILY #20 tab Prescription Printed Primary Care Physician: Flavia Aldrich MD [Primary Care Provider] - Please follow up with your Primary Care Physician in: 1-2 weeks. Test Results: Test results from this visit will be discussed in further detail at your follow- up appointment, if applicable.
[2019-06-19 09:33] VITALS: BP 147/65; PULSE 71; RESP 16; TEMP 36.9; O2SAT 95
[2019-06-19] MEDS: Aspirin 81 MG TAB.CHEW PO (09:43)
[2019-06-19] MEDS: Enoxaparin 40 MG/0.4 ML Syringe SC (09:43)
[2019-06-19] MEDS: LINAGLIPTIN 5 MG TABLET PO (09:43)
[2019-06-19] MEDS: glipiZIDE 5 MG Tablet PO (09:43)
[2019-06-19] MEDS: Atenolol 50 MG Tablet PO (09:43)
[2019-06-19] MEDS: Clopidogrel Bisulfate 75 MG Tablet PO (09:43)
--- NOTE | 2019-06-19 10:06 | PHA.DC.MR ---
Pharmacy Service has performed discharge medication reconciliation for this patient upon transfer to inpatient rehab The patient's discharge medication list was reviewed for discrepancies and discrepancies were resolved. Home Medications Amlodipine [Norvasc] 5 mg PO DAILY 09/07/16 Atenolol [Tenormin (beta vick)] 50 mg PO DAILY 09/07/16 glipiZIDE [Glucotrol] 5 mg PO BIDAC 09/07/16 Multivitamin [Multiple Vitamins] 1 each PO DAILY 09/08/16 glipiZIDE [Glucotrol] 10 mg PO LUNCH 09/08/16 Esomeprazole Magnesium [Nexium 24Hr] 20 mg PO QODAY 06/16/19 Losartan Potassium 50 mg PO DAILY 06/16/19 Metformin HCl 500 mg PO BID 06/16/19 Sitagliptin Phosphate [Januvia] 50 mg PO DAILY 06/16/19 Aspirin [Aspirin, Baby] 81 mg PO DAILY@0800 #90 tab.chew 06/19/19 Atorvastatin Calcium [Lipitor] 80 mg PO QHS #90 tab 06/19/19 Clopidogrel Bisulfate [Plavix] 75 mg PO DAILY #20 tab 06/19/19
--- NOTE | 2019-06-19 10:18 | PCM.DC.SUM ---
Discharge Date and Diagnosis Date of Admission: 06/16/19 Date of Discharge: 06/19/19 - Primary Discharge Diagnosis Acute right cerebellar infarct. - Secondary Discharge Diagnosis Chronic Problems Diabetes mellitus, type II (Chronic) HTN (hypertension) (Chronic) HLD (hyperlipidemia) (Chronic) GERD (gastroesophageal reflux disease) (Chronic) Morbid obesity with BMI of 40.0-44.9, adult (Chronic) CKD (chronic kidney disease), stage III (Chronic) Hospital Course and Treatment Imaging Results: Clinical Impression(s) from Imaging Studies Brain CT 06/16/19 17:17 IMPRESSION: No CT evidence of acute infarct or hemorrhage. If there is clinical concern for hyperacute ischemia that is not evident by CT, MRI should be considered if possible. Electronically Signed: Ervin Toledo MD at 18:48 EDT Tel , Service support , Brain MRI 06/17/19 08:00 IMPRESSION: Acute right cerebellar infarct. Electronically Signed: Carole Workman MD at 10:35 EDT Tel , Service support , ADDENDUM: 06/17/19 1058 IMPRESSION: Acute right cerebellar infarct. N.B. : The above information has been verbally conveyed by Carole Workman MD to Keren Justice RN, on 06/17/2019 10:51:24 (ET). Electronically Signed: Carole Workman MD at 10:35 EDT Tel , Service support , Tele-neurology Operations: None Procedures: 2-D Echocardiogram, EKG Summary of Care Provided: Patient seen and examined on the day of discharge and appeared to be stable to be discharged to inpatient rehabilitation unit. Dizziness and vertigo continue to improve slowly. She has been able to ambulate with assistance. Her vital signs are stable, blood pressure slightly high in the setting of acute stroke. The patient is a 73 year old F presented to the emergency room because of dizziness and vertigo and she was found to have acute right cerebellar infarct. She had a history of vertigo in the past that was treated with Antivert. During this hospital stay, CT scan brain done and showed no acute infarct or hemorrhage. She was treated with Antivert and Valium but she continued to have vertigo with some improvement. MRI done and revealed acute right cerebellar infarct. There was no significant focal deficit apart from vertigo with nystagmus. She was treated with aspirin, high intensity statins and Plavix. EKG revealed normal sinus rhythm without evidence of cardiac arrhythmias or acute ischemic changes. 2D echocardiogram revealed ejection fraction of 60%, normal LV size, stage II diastolic dysfunction and mildly enlarged left atrium. Bilateral carotid Doppler revealed less than 50% stenosis of the right internal and external carotids as well as less than 50% stenosis of the left internal and external carotids. Her routine blood work was unremarkable. Tele-neurology consult obtained and recommended aspirin and Plavix for 21 days and then aspirin daily. Patient's blood pressure has been on the higher side but was at goal. She was seen by PT OT and recommended placement to inpatient rehabitation unit. Patient discharged to inpatient rehabilitation unit in a stable medical condition, discharged on aspirin indefinitely, Plavix for 21 days, Lipitor 80 mg p.o. daily, continued on her previous home medications including her antihypertensive medications namely atenolol, Norvasc and losartan, continued on her previous other home medications, recommended follow-up with PCP in 1 to 2 weeks. - Physical Exam Vitals/I&O's: Vital Signs Temp Pulse Resp BP Pulse Ox 98.5 F 71 16 147/65 H 95 06/19/19 09:33 06/19/19 09:33 06/19/19 09:33 06/19/19 09:33 06/19/19 09:33 Oxygen Delivery Method Room Air Weight: 234 lb 9.149 oz Body Mass Index (BMI) 45.8 Intake and Output for Last 24 Hours 06/17/19 06/18/19 06/19/19 23:59 23:59 23:59 Intake Total 1859 520 / 520 Output Total 100 / 100 Balance 1859 520 / 520 -100 / -100 General: Alert, Oriented x3, Cooperative, No apparent distress HEENT: Atraumatic, PERRLA, EOMI, Normocephalic Oral: Moist Mucosa, No Gingival or Mucosal Lesions/ Ulcerations Neck: Supple, No JVD, Negative Carotid Bruits, Trachea Midline, Thyroid Normal Size and Texture Lungs: Clear to auscultation, Normal air movement, No rhonchi, No wheeze, No rales Cardiovascular: Regular rate, Regular Rhythm, Normal S1, Normal S2, PMI Normal Abdomen: Bowel Sounds Present, Soft, Non Tender, Non-Distended, No Hepato-splenomegaly Extremities: No clubbing, No cyanosis, No edema Skin: No rashes, No breakdown Lymphatic: No Cervical, Supraclavicular, or Inguinal Adenopathy Neurological: Cranial nerves II-XII grossly intact, Motor Exam 5/5 strength throughout Psych/Mental Status: Normal Affect, Appropriate Laboratory Results 06/18/19 11:09: POC Glucose 246 H 06/18/19 16:30: POC Glucose 222 H 06/18/19 21:31: POC Glucose 196 H 06/19/19 06:31: POC Glucose 191 H Current Medications Aspirin (Aspirin, Baby) 81 mg PO DAILY@0800 [facility] Last Admin: 06/19/19 09:43 Dose: 81 mg Documented by: Atenolol (Tenormin (Beta Christel)) 50 mg PO DAILY [facility] Last Admin: 06/19/19 09:43 Dose: 50 mg Documented by: Atorvastatin Calcium (Lipitor) 80 mg PO QHS [facility] Last Admin: 06/18/19 21:34 Dose: 80 mg Documented by: Clopidogrel Bisulfate (Plavix) 75 mg PO DAILY [facility] Last Admin: 06/19/19 09:43 Dose: 75 mg Documented by: Enoxaparin Sodium (Lovenox) 40 mg SC DAILY [facility] Last Admin: 06/19/19 09:43 Dose: 40 mg Documented by: Glipizide (Glucotrol) 5 mg PO BIDAC [facility] Last Admin: 06/19/19 09:43 Dose: 5 mg Documented by: Glipizide (Glucotrol) 10 mg PO LUNCH [facility] Last Admin: 06/18/19 11:14 Dose: 10 mg Documented by: Glucagon () 1 mg IM .X1 PRN PRN Reason: Hypoglycemia Dextrose (Dextrose 10%-Water) 250 mls @ 999 mls/hr IV .Q16M PRN; Protocol PRN Reason: HYPOGLYCEMIA Insulin Human Lispro (Humalog Kwikpen (Bkc)) 0 unit SC ACHS [facility]; Protocol Last Admin: 06/19/19 06:34 Dose: 2 units Documented by: Labetalol HCl (Trandate) 10 mg IV Q10M PRN PRN PRN Reason: to maintain BP goals Linagliptin (Tradjenta) 5 mg PO DAILY [facility] Last Admin: 06/19/19 09:43 Dose: 5 mg Documented by: Meclizine HCl (Antivert) 25 mg PO TID PRN PRN Reason: Vertigo Ondansetron HCl (Zofran) 4 mg IV Q6H PRN PRN PRN Reason: NAUSEA/VOMITING Pantoprazole Sodium (Protonix) 20 mg PO QODAY [facility] Last Admin: 06/18/19 08:54 Dose: 20 mg Documented by: Prochlorperazine Edisylate (Compazine Iv) 5 mg IV Q4H PRN PRN PRN Reason: Breakthrough Nausea/Vomiting Sodium Chloride () 10 - 40 ml IV UD PRN PRN Reason: SALINE FLUSH Discharge Activity: Return to Normal Activity Weight Bearing Status: Weight bearing as tolerated Call your doctor if you observe: Fever of 101 or Higher, Numbness or Tingling, Shortness of breath, Dizziness, Fainting spells, Chest pain, Increased palpitations (irregular heartbeat), Uncontrolled pain Home Medications: Medications to take at Discharge Amlodipine [Norvasc] 5 mg PO DAILY 09/07/16 Atenolol [Tenormin (beta christel)] 50 mg PO DAILY 09/07/16 glipiZIDE [Glucotrol] 5 mg PO BIDAC 09/07/16 Multivitamin [Multiple Vitamins] 1 each PO DAILY 09/08/16 glipiZIDE [Glucotrol] 10 mg PO LUNCH 09/08/16 Esomeprazole Magnesium [Nexium 24Hr] 20 mg PO QODAY 06/16/19 Losartan Potassium 50 mg PO DAILY 06/16/19 Metformin HCl 500 mg PO BID 06/16/19 Sitagliptin Phosphate [Januvia] 50 mg PO DAILY 06/16/19 Aspirin [Aspirin, Baby] 81 mg PO DAILY@0800 #90 tab.chew 06/19/19 Atorvastatin Calcium [Lipitor] 80 mg PO QHS #90 tab 06/19/19 Clopidogrel Bisulfate [Plavix] 75 mg PO DAILY #20 tab 06/19/19 Following Prescrptions Were Given to Patient: Aspirin [Aspirin, Baby] 81 mg PO DAILY@0800 #90 tab.chew Prescription Printed Atorvastatin Calcium [Lipitor] 80 mg PO QHS #90 tab Prescription Printed Clopidogrel Bisulfate [Plavix] 75 mg PO DAILY #20 tab Prescription Printed Primary Care Physician: Flavia Aldrich MD [Primary Care Provider] - Please follow up with your Primary Care Physician in: 1-2 weeks. Disposition: Inpt Rehab Unit/Facility Minutes spent on discharge:: 32 Patient Condition:: Stable Medical Necessity - Tobacco Use Smoking Status: Never smoker Tobacco Use: Non-smoker Meaningful Use Info Meaningful Use Diagnoses (Choose all that apply): Ischemic CVA - CVA Therapy Assessed for PT,OT and/or ST?: Yes - Ischemic Stroke Antithrombotic order at d/c?: Yes Dx of Atrial fib/flutter?: No Anticoagulant at discharge?: No Reason anticoagulant not ordered: Treatment not Indicated Statins at discharge?: Yes Primary Dx Acute Ischemic CVA?: Yes IV tPA ordered during stay?: No Reason IV t-PA not ordered: Treatment not Indicated Inpatient E&M: 98967 Disch Hosp
== END 2019-06-19 10:44 | DRG 65 ==
LOC: ED 18:04 → PCU 19:44
PROVIDERS: Nurse Practitioner Family; Admitting Provider Hospitalist; Emergency Provider Emergency Medicine; PCP Internal Medicine; Visit Provider Hospitalist
DX: I63.9 Cerebral infarction, unspecified (principal); Z68.42 Body mass index [BMI] 45.0-49.9, adult; N18.3 Chronic kidney disease, stage 3 (moderate); E66.01 Morbid (severe) obesity due to excess calories; Z79.84 Long term (current) use of oral hypoglycemic drugs; E11.22 Type 2 diabetes mellitus with diabetic chronic kidney disease; E78.5 Hyperlipidemia, unspecified; K21.9 Gastro-esophageal reflux disease without esophagitis; I12.9 Hypertensive chronic kidney disease with stage 1 through stage 4 chronic kidney disease, or unspecified chronic kidney disease; H55.00 Unspecified nystagmus; R42 Dizziness and giddiness
CPT/HCPCS: 36415; 70450; 70551; 80048; 80053; 81001; 82962; 83036; 84484; 85025; 92523; 92610; 93005; 93306; 93880; 94762; 97116; 97162; 97166; 97530; 99285; J7030; J7040; Q9957; A4216; C8929; J2405

== ENCOUNTER 2019-06-19 11:00 | Inpatient (IN) | payer MEDICARE, SELFPAY ==
[2019-06-18 21:45] VITALS: BMI 45.8
[2019-06-19 11:17] VITALS: BMI 45.6; BMI 45.8
[2019-06-19 11:21] VITALS: BP 156/76; PULSE 68; RESP 18; TEMP 37.1; O2SAT 92
[2019-06-19 12:05] LABS: Bedside Glucose 214 mg/dL (70-110)
[2019-06-19 12:36] VITALS: BMI 45.8
--- NOTE | 2019-06-19 13:36 | HP.PCM_ITS ---
Problem List (1) BPPV (benign paroxysmal positional vertigo) Status: Chronic (2) Grade II diastolic dysfunction Status: Chronic (3) Left atrial enlargement Status: Chronic Comment: Mild (4) CKD (chronic kidney disease), stage III Status: Chronic (5) Diabetes mellitus, type II Status: Chronic Qualifiers: Diabetes mellitus complication status: with neurologic complications Diabetes mellitus complication detail: with other neurological complication (6) GERD (gastroesophageal reflux disease) Status: Chronic Qualifiers: (7) HLD (hyperlipidemia) Status: Chronic Qualifiers: (8) HTN (hypertension) Status: Chronic Qualifiers: (9) Morbid obesity with BMI of 40.0-44.9, adult Status: Chronic (10) Proteinuria Status: Chronic (11) Asymptomatic bacteriuria Status: Acute (12) Diabetic nephropathy Status: Chronic Qualifiers: Diabetes mellitus type: type 2 Qualified Code(s): E11.21 - Type 2 diabetes mellitus with diabetic nephropathy History of Present Illness Date of Admission: 06/19/19 Chief Complaint: Post stroke debility The patient is a 73 year old F with a past medical history of hypertension, diabetes mellitus type 2, hyperlipidemia, morbid obesity, GERD, BPPV, chronic renal failure stage III, stage II diastolic dysfunction, mild left atrial enlargement and recent right cerebellar ischemic infarct admitted to the inpatient rehab unit at [facility] on 06/19/2019 for debility s econdary to recent right cerebellar ischemic infarct. She is admitted for > 3 hours of therapy daily to return her at or near her prior level of independence. She was using a quad cane for ambulation prior to recent CVA. She was independent with ADL's and driving prior to CVA. She has a walk-in shower with grab bars at home. Recent HGBA1C is 7.4%. No lipid panel was done. LFT's are normal. Transthoracic echocardiogram Interpretation Summary Normal LV size. The estimated ejection fraction is 60 %. Stage 2 diastolic dysfunction. The left atrium is mildly enlarged. The study was technically difficult. Contrast injection was performed. Carotid ultrasound Interpretation Summary Mild irregular heterogenous plaque right common carotid and proximal internal carotid <50% stenosis right internal carotid <50% stenosis right external carotid Tortuous left internal carotid with mild irregular plaque within the left common carotid and internal carotid <50% stenosis left internal carotid <50% stenosis left external carotid Patent, antegrade vertebrals bilaterally Past Medical History Past Medical History (Chronic Problems): Chronic Problems BPPV (benign paroxysmal positional vertigo) (Chronic) Grade II diastolic dysfunction (Chronic) Left atrial enlargement (Chronic) Mild Proteinuria (Chronic) Diabetic nephropathy (Chronic) Diabetes mellitus, type II (Chronic) HTN (hypertension) (Chronic) HLD (hyperlipidemia) (Chronic) GERD (gastroesophageal reflux disease) (Chronic) Morbid obesity with BMI of 40.0-44.9, adult (Chronic) CKD (chronic kidney disease), stage III (Chronic) Allergies Sulfa (Sulfonamide Antibiotics) Allergy (Verified 06/16/19 17:13) Rash lisinopril Adverse Reaction (Verified 06/16/19 20:15) cough Home Medications: Ambulatory Orders Medication Instructions Recorded Amlodipine [Norvasc] 5 mg PO DAILY 09/07/16 Atenolol [Tenormin (beta christel)] 50 mg PO DAILY 09/07/16 glipiZIDE [Glucotrol] 5 mg PO BIDAC 09/07/16 Multivitamin [Multiple Vitamins] 1 each PO DAILY 09/08/16 glipiZIDE [Glucotrol] 10 mg PO LUNCH 09/08/16 Esomeprazole Magnesium [Nexium 20 mg PO QODAY 06/16/19 24Hr] Losartan Potassium 50 mg PO DAILY 06/16/19 Metformin HCl 500 mg PO BID 06/16/19 Sitagliptin Phosphate [Januvia] 50 mg PO DAILY 06/16/19 Aspirin [Aspirin, Baby] 81 mg PO DAILY@0800 06/19/19 Atorvastatin Calcium [Lipitor] 80 mg PO QHS 06/19/19 Clopidogrel Bisulfate [Plavix] 75 mg PO DAILY 06/19/19 Surgical History: - - Cataract surgery bilaterally. 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 Her sister and the sister's live close Smoking Status: Never smoker Tobacco Use: Non-smoker - *Family History Maternal History Items: Diabetes, Heart Disease, Hypertension Paternal History Items: High Cholesterol Review of Systems Constitutional: Denies: Chills, Fever, Malaise, Weight Change Eyes: Denies: Blurred vision, Drainage, Eyelid Inflammation, Vision Change HEENT: Reports: - - She tells me that the left ear feels clooged for the past few months, - - she has occasional tinnitus. Denies: Head Aches, Sinus Congestion, Sinus Drainage, Sore Throat Cardiovascular: Denies: Chest Pain, Claudication, Edema, Light Headedness, Palpitations, Paroxysmal Noc. Dyspnea, Syncope Respiratory: Reports: Cough - occasional dry. Denies: Pleuritic Pain, Shortness of Breath, Shortness of breath at rest, Sputum production Gastrointestinal: Denies: Abdominal Pain, Constipation, Diarrhea, Nausea, Vomiting Genitourinary: Denies: Dysuria, Frequency, Hesitancy Gynecological: Denies: Vaginal discharge Musculoskeletal: Denies: Joint Pain, Joint Tenderness, Neck Pain Skin: Reports: Dryness. Denies: Jaundice, Rash, Wounds Neurological: Reports: Balance problems. Denies: Blurred vision, Double vision, Change in Speech, Slurred speech, Confusion, Focal weakness, Headaches, Numbness, Tingling, Tremor, Seizures Psychiatric: Denies: Anxiety, Depression, Homicidal Ideations, Suicidal Ideations Endocrine: Denies: Change in Body Habitus, Hx of Thyroiditis Hematologic/ Lymphatic: Denies: Easy Bruising, Easy Bleeding, Hx of blood clot VTE Information - Inpt Only VTE Present on Admission: No VTE Mechan Device Prophylaxis: Knee High GIANCARLO Hose VTE Pharm Prophylaxis ordered?: Yes Patient Problems: Active and Suspected Problems Asymptomatic bacteriuria (Acute) - Physical Exam Vitals/I&O's: Vital Signs Temp Pulse Resp BP Pulse Ox 98.7 F 68 18 156/76 H 92 06/19/19 11:21 06/19/19 11:21 06/19/19 11:21 06/19/19 11:21 06/19/19 11:21 Oxygen Delivery Method Room Air Weight: 234 lb 9.149 oz Body Mass Index (BMI) 45.8 Intake and Output for Last 24 Hours 06/17/19 06/18/19 06/19/19 23:59 23:59 23:59 Intake Total 100 / 100 Balance 100 / 100 General: Alert, Oriented x3, Cooperative HEENT: Atraumatic, PERRLA, EOMI, Normocephalic, - - She seems to have some ptosis on the right side....she can not tell me if that has been present or not. The left EAC is occluded with cerumen. The right EAC is patent and the TM is normal. Oral: Moist Mucosa, No Gingival or Mucosal Lesions/ Ulcerations Neck: Supple, No JVD, Negative Carotid Bruits, No Nodes, No Nuchal Rigidity, Trachea Midline Lungs: Clear to auscultation, Normal air movement, No rhonchi, No wheeze, No rales Cardiovascular: Regular rate, Regular Rhythm, Normal S1, Normal S2, No murmurs, No Ectopic Activity, No rub noted, No Gallop Abdomen: Bowel Sounds Present, Soft, Non Tender, Non-Distended, Obese, - - No guarding with palpation Extremities: No clubbing, No cyanosis, No edema, Capillary Refill Less than 3 Seconds, No Calf Tenderness Skin: No rashes, No breakdown, - - Dry skin, especially over the lower extremities distally Musculoskeletal: No Tenderness to Palpation of Joints or Extremities, No Muscle Wasting Neurological: Cranial nerves II-XII grossly intact, Neuro grossly intact - 5/5 strength throughout, - - + romberg Psych/Mental Status: Normal Affect, Appropriate Laboratory Results 06/19/19 11:50: POC Glucose 214 H Current Medications Amlodipine Besylate (Norvasc) 5 mg PO DAILY [facility] Aspirin (Aspirin, Baby) 81 mg PO DAILY@0800 [facility] Atenolol (Tenormin (Beta Christel)) 50 mg PO DAILY [facility] Atorvastatin Calcium (Lipitor) 80 mg PO QHS DEANN Bisacodyl (Dulcolax) 10 mg RECTAL .PRN X 1 PRN PRN Reason: Constipation Clopidogrel Bisulfate (Plavix) 75 mg PO DAILY [facility] Stop: 07/10/19 10:01 Glipizide (Glucotrol) 5 mg PO BIDAC [facility] Glipizide (Glucotrol) 10 mg PO LUNCH [facility] Linagliptin (Tradjenta) 5 mg PO DAILY [facility] Losartan Potassium (Cozaar) 50 mg PO DAILY [facility] Magnesium Hydroxide (Milk Of Magnesia) 30 ml PO .PRN X 1 PRN PRN Reason: Constipation Metformin HCl (Glucophage) 500 mg PO BIDCM DEANN Pantoprazole Sodium (Protonix) 20 mg PO QODAY DEANN Senna/Docusate Sodium (Senokot-S, Niya-Colace) 2 tablet PO BID [facility] Assessment/Plan All Active Problems Asymptomatic bacteriuria (Acute) Impressions 1. post CVA disability 2. recent R cerebellar ischemic CVA - MRA of the head and neck in 2017 showed a dominant R vertebral A with no significant stenosis. No stenosis in the carotids. 3. DM II with recent [id number] of 7.4%. Would like to see this under 7 with recent CVA. There are still BS's > 180 so will continue to adjust medication to keep all BS's < 180. Currently she is on all oral agents which include Metformin, Glipizide and Tradjenta. She is on a carb control diet. will change the diet to cardiac 1600. 4. Mild left atrial enlargement with no history of atrial fibrillation 5. Stage II diastolic dysfunction 6. Hypertension 7. Hyperlipidemia-she tells me that this is primarily triglycerides. No lipid panel was done during her acute hospital stay so will check a lipid panel in the a.m. LFTs are unremarkable. 8. morbid obesity - weight loss encouraged. Will discuss the Why Weight program run by the general operator's closer to [place]. 9. Cerumen impaction - Debrox ear drops ordered....will recheck the Left EAC in a few days 10. Hx of vertigo...she also has tinnitus on occasion...she may actually have M?ni?re's disease. 11. GERD 12. Stage III chronic renal failure with proteinuria -we will check a microalbumin/creatinine ratio and recommend she follow up with nephrology going forward to protect the kidney function she has left. 13. asymptomatic pyuria in the hospital - may have a vaginal yeast infection....she has no complaints so no need to treat at this time PLAN PT for gait stability OT for ADL's ST for evaluation Analgesics as needed Bowel protocol Fall precautions Assess for Anxiety/Depression GI prophylaxis with Pepcid 20 mg once daily DVT prophylaxis with heparin 5000 units subcu every 12 hours Follow up with Dr. Melissa Aldrich, neurology and nephrology following DC from IP Rehab add a low dose diuretic to help with BP and also to see if the vertigo improves. add a SSI protocol AC and HS Inpatient E&M: 25039 Init Hosp L3
--- NOTE | 2019-06-19 16:49 | REHABEVAL_ITS ---
Admission Information Primary Diagnosis:: Post stroke debility due to recent ischemic right cerebellar infarct Status Changes from Prescreening?: No changes Identified Actual Problem List:: Mobility Impaired, Self Care Deficit, Alteration-Leisure Activ. Potential Problem List:: DVT, Bleeding, Infection, UTI, Aspiration, Falls, Skin Integrity, Depression Risk of Complications DVT: GIANCARLO Tidwellmagi, - - Heparin 5000 units subcu every 12 hours Bleeding: Monitor Lab Values, Nursing to Teach Precautions for anti-coagulation therapy., Wound, if applicable, to be assessed every shift., Stroke patients assessed for lethargy or change in status. Infection: Clinical Staff to Monitor for S/S of infection:, S/S of infection include fever, redness, warmth, etc. Urinary Tract Infection: Monitor for frequency, burning, discomfort, or incontinence., Nursing will obtain urine sample for urinalysis and C&S when ordered. Aspiration: Clinical staff will monitor for coughing, drooling, congestion., Speech will evaluate swallowing and dsyphasia., Nursing will monitor patient swallowing during meals. Falls: Patient will be evaluated for Fall Precautions, Patient will be placed on Fall Precautions as indicated per protocol. Skin Breakdown: Nursing will assess skin daily using assessment tool., Nursing will place on Skin Breakdown Precautions as indicated. Pain: Clinical staff will assess patient's pain level per protocol., Medications will be given, if needed, and the pain level reassessed., Other methods: Massage, distraction, decrease stimulus, etc. used PRN. Plan of Care Patient requires physician specializing in physical medicine and rehab oversight to provide close medical supervision of rehab issues including: Pain Management, Sleep Problems, Bowel and Bladder, Medical and co-morbidity Management, DVT prophylaxis, Rehabilitation Leadership, Coordination of treatment team Patient needs Physical Therapy: For a minimum of 1 hour, At least 5 out of 7 days Patient needs Physical Therapy to improve:: Mobility, Mobility, Mobility, Strengthening, Transfers, Stretching, ROM, Endurance, Stairs, Gait, Balance Patient needs Occupational Therapy: For a minimum of 1 hour, At least 5 out of 7 days Patient needs Occupational Therapy to improve ADL's incl.: Eating, Grooming, Bathing, Dressing, Toileting, Toilet transfers, Community Reintegration, Higher functioning activities, Household tasks, Adaptive Equipment, Splinting, Other activities as determined Patient requires speech therapy: For a minimum of 1 hour, At least 5 out of 7 days Patient requires speech therapy for: Swallowing, Cognition, Language Skills, Compensatory Strategies Patient requires 24/ Rehabilitation Nursing for: Pain Issues, Identifying and preventing risk factors, Monitoring and reporting current medical conditions, Assisting with ambulation, transfer, and all ADL's, Teaching patients about disease process and medications, Family teaching, Providing safe environment, Bowel and Bladder Issues, Skin integrity, Medication Management Patient needs Agronomy Technician/ Case Management for: Discharge Planning, Arranging Home Equipment or Services, Family Interventions Patient needs Dietary and Nutrition Services for: Adequate Nutrition, Nutritional Supplements, Nutritional Education Goals Patient will remain: free from falls, or injury at time of discharge. Patient will perform bed mobility at: MOD I level of assist. Patient will complete transfers from bed to chair at: MOD I level of assist. Patient will ambulate: 100 feet, with MOD I assist, with LRD Patient will complete upper body dressing at: MOD I level of assist. Patient will complete lower body dressing at: MOD I level of assist. Patient will complete toileting at: MOD I level of assist. Patient will perform bathing at: MOD I level of assist. Patient will complete grooming at: MOD I level of assist. Patient will complete home management skills at: MOD I level of assist. Patient will achieve: 12 stairs, at MOD I assist Patient will have pain level of: of 3 or less Patient's skin will: remain intact, free from infection. Patient will receive: adequate nutrition. Discharge Planning Pt Prognosis for Sig. Practical Improv. w/in Reasonable Time: Good Estimated Length of stay (days): 14 Anticipated D/C Destination: Home with Home Health
[2019-06-19 17:00] LABS: Bedside Glucose 179 mg/dL (70-110)
[2019-06-19] MEDS: metFORMIN HCl 500 MG Tablet PO (17:41)
[2019-06-19] MEDS: glipiZIDE 5 MG Tablet PO (18:07)
[2019-06-19] MEDS: Insulin Lispro 100 UNIT/ML INSULN.PEN SC ×2 (18:08→21:42)
[2019-06-19] MEDS: Senna/Docusate Sodium 1 Tablet 2 TABLET PO (21:27)
[2019-06-19] MEDS: Heparin Injection (Vial) 5,000 UNIT/ML VIAL 5000 UNIT SC (21:27)
[2019-06-19] MEDS: Atorvastatin Calcium 80 MG Tablet PO (21:28)
[2019-06-19 21:40] LABS: Bedside Glucose 201 mg/dL (70-110)
[2019-06-19 22:00] VITALS: BP 114/68; PULSE 63; RESP 16; TEMP 36.9; O2SAT 96
[2019-06-20 02:42] VITALS: BMI 45.8
[2019-06-20 03:45] LABS: Microalbumin:Creatinine Ratio 909.1 mg/g CRE (<30 mg/g CRE)
[2019-06-20] MEDS: Nystatin Powder 15gm Bottle 1 APPLIC TOPICAL ×2 (05:15→21:23)
[2019-06-20] MEDS: Magnesium Hydroxide 30 ML UDC PO (05:22)
[2019-06-20 06:05] VITALS: RESP 16; O2SAT 90
[2019-06-20 06:46] LABS: Bedside Glucose 149 mg/dL (70-110)
[2019-06-20 07:47] LABS: Absolute Neutrophil Count 8.5 X10^3/uL (2.0-7.7); Basophil# 0.03 X10^3/uL; Basophil% 0.3 % (0-1); Eosinophils% 1.7 % (0-5); Hematocrit 36.4 % (37-47); Hemoglobin 11.6 g/dL (12.0-15.0); Lymphocyte % 18.1 % (19-41); Mean Corp Hgb Conc 31.9 g/dL (32-36); Mean Corpuscular Hgb 27.8 pg (27.0-32.0); Mean Corpuscular Volume 87.1 fL (81-99); Mean Platelet Vol. 9.8 fl (6.2-12.0); Monocyte# 0.73 X10^3/uL; Monocyte% 6.3 % (0-10); NRBC Flagged by Analyzer 0 % (0-5); Neutrophil % 73.1 % (47-70); Platelet Count 323 K/mm3 (150-450); RBC Distribution Width CV 13.7 % (11.6-14.6); RBC Distribution Width SD 43.4 fl (35.1-43.9); Red Blood Count 4.18 M/mm3 (4.2-5.4); White Blood Count 11.6 K/mm3 (4.4-11.0)
[2019-06-20 08:08] LABS: Anion Gap 8 (5-15); BUN 31 mg/dL (7-18); BUN/Creat Ratio 21.2 RATIO (10-20); Calcium,Total 9.6 mg/dL (8.5-10.1); Chloride 104 mmol/L (98-107); Creatinine, Serum 1.46 mg/dL (0.55-1.02); EST Glomerular Filtration Rate 37 mL/min (>60); Est Glom Filt Rate - Afr Amer 45 mL/min (>60); Estimated Creatinine Clearance 24.28 ml/min; Glucose 163 mg/dL (74-106); Magnesium 1.6 mg/dL (1.6-2.6); Potassium 4.1 mmol/L (3.5-5.1); Sodium Level 137 mmol/L (136-145)
[2019-06-20] MEDS: Senna/Docusate Sodium 1 Tablet 2 TABLET PO ×2 (08:28→21:24)
[2019-06-20] MEDS: Clopidogrel Bisulfate 75 MG Tablet PO (08:28)
[2019-06-20] MEDS: Aspirin 81 MG TAB.CHEW PO (08:28)
[2019-06-20] MEDS: hydroCHLOROthiazide 12.5mg 12.5 MG PO (08:28)
[2019-06-20] MEDS: Famotidine 20 MG Tablet PO (08:28)
[2019-06-20] MEDS: LINAGLIPTIN 5 MG TABLET PO (08:28)
[2019-06-20] MEDS: Atenolol 50 MG Tablet PO (08:28)
[2019-06-20] MEDS: Heparin Injection (Vial) 5,000 UNIT/ML VIAL 5000 UNIT SC ×2 (08:29→21:23)
[2019-06-20] MEDS: amLODIPine 5 MG Tablet PO (08:29)
[2019-06-20] MEDS: metFORMIN HCl 500 MG Tablet PO ×2 (08:29→17:26)
[2019-06-20] MEDS: Losartan Potassium 50 MG Tablet PO (08:29)
[2019-06-20] MEDS: glipiZIDE 5 MG Tablet PO ×2 (08:29→17:26)
[2019-06-20 10:00] VITALS: BP 161/75; PULSE 63; RESP 18; TEMP 36.9; O2SAT 95
[2019-06-20] MEDS: glipiZIDE 10 MG Tablet PO (11:26)
[2019-06-20] MEDS: Insulin Lispro 100 UNIT/ML INSULN.PEN SC ×2 (11:26→17:27)
[2019-06-20 11:31] LABS: Bedside Glucose 208 mg/dL (70-110)
--- NOTE | 2019-06-20 11:56 | CASEMGMT ---
Social Work Competed PHQ-9 assessment. Score 12/27 Alesha Rincon, social work management retail intern Keren Rivera, FREIGHT BRAKE OPERATOR ORTHOPEDIC DENTIST
--- NOTE | 2019-06-20 12:02 | CASEMGMT ---
Social Work Reviewed and agreed with social work marketing research intern documentation on this date. Keren Rivera, LAMINATOR HAND PATIENT CARE TECHNICIAN INSTRUCTOR
[2019-06-20 14:23] VITALS: BMI 45.8
[2019-06-20 17:36] LABS: Bedside Glucose 183 mg/dL (70-110)
[2019-06-20 19:32] VITALS: BP 141/67; PULSE 65; RESP 16; TEMP 36.6; O2SAT 98
[2019-06-20 21:16] LABS: Bedside Glucose 109 mg/dL (70-110)
[2019-06-20] MEDS: Menthol/Lanolin/Calamine/Znox 113 GM Tube 1 APPLIC TOPICAL (21:22)
[2019-06-20] MEDS: Atorvastatin Calcium 80 MG Tablet PO (21:23)
[2019-06-21 05:00] VITALS: BMI 45.8
[2019-06-21] MEDS: Nystatin Powder 15gm Bottle 1 APPLIC TOPICAL ×2 (05:51→20:45)
[2019-06-21 06:56] LABS: Bedside Glucose 118 mg/dL (70-110)
[2019-06-21] MEDS: Aspirin 81 MG TAB.CHEW PO (07:34)
[2019-06-21] MEDS: metFORMIN HCl 500 MG Tablet PO (07:34)
[2019-06-21] MEDS: Heparin Injection (Vial) 5,000 UNIT/ML VIAL 5000 UNIT SC ×2 (07:35→20:46)
[2019-06-21] MEDS: Losartan Potassium 50 MG Tablet PO (07:35)
[2019-06-21] MEDS: glipiZIDE 5 MG Tablet PO (07:35)
[2019-06-21] MEDS: hydroCHLOROthiazide 12.5mg 12.5 MG PO (07:36)
[2019-06-21] MEDS: amLODIPine 5 MG Tablet PO (07:36)
[2019-06-21] MEDS: Senna/Docusate Sodium 1 Tablet 2 TABLET PO ×2 (07:37→20:45)
[2019-06-21] MEDS: Famotidine 20 MG Tablet PO (07:37)
[2019-06-21] MEDS: Atenolol 50 MG Tablet PO (07:37)
[2019-06-21] MEDS: Clopidogrel Bisulfate 75 MG Tablet PO (07:37)
[2019-06-21] MEDS: LINAGLIPTIN 5 MG TABLET PO (07:37)
[2019-06-21] MEDS: Menthol/Lanolin/Calamine/Znox 113 GM Tube 1 APPLIC TOPICAL ×2 (07:39→20:46)
[2019-06-21 08:49] VITALS: BP 153/72; PULSE 63; RESP 20; TEMP 36.6; O2SAT 96
[2019-06-21] MEDS: Insulin Lispro 100 UNIT/ML INSULN.PEN SC ×2 (11:51→16:57)
[2019-06-21] MEDS: glipiZIDE 10 MG Tablet PO (11:52)
[2019-06-21 12:11] LABS: Bedside Glucose 182 mg/dL (70-110)
[2019-06-21 12:35] VITALS: BMI 45.8
[2019-06-21] MEDS: Magnesium Oxide 400 MG Tablet PO (16:00)
[2019-06-21 17:15] LABS: Bedside Glucose 151 mg/dL (70-110)
[2019-06-21 19:27] VITALS: BP 150/69; PULSE 62; RESP 16; TEMP 36.7; O2SAT 98
--- NOTE | 2019-06-21 19:55 | PCM.PN.BLA ---
Progress Note Afebrile Systolic blood pressures are still mildly elevated She is maintaining appropriate oxygen saturation on room air Fair oral intake Blood sugars are coming under better control in the FBS today was 118. She denies nausea, abdominal pain, dysuria, shortness of breath, cough, chest pain. She denies headache. She appears in no acute distress. She is alert and oriented x3. Lungs-mildly diminished-more likely than not secondary to body habitus. No rhonchi, wheezes or rales. Heart-regular rate and rhythm, no gallop Abdomen-obese, soft, nontender, bowel sounds present No peripheral edema Impressions 1. Post CVA disability 2. Bilateral cerumen impaction 3. Diabetes mellitus type 2-coming under better control with a calorie diet 4. Renal failure stage III and recommended to her that she follow-up with a cutter machine tender post discharge 5. Vertigo-gradually improving 6. Hypertension 7. Diabetic nephropathy continue therapy STROKE Vital Signs/Narrative: Vital Signs Temp Pulse Resp BP Pulse Ox 06/21/19 19:27 98.0 F 62 16 150/69 H 98 Inpatient E&M: 79137 Subs Hosp L1
[2019-06-21 20:43] VITALS: BMI 45.8
[2019-06-21] MEDS: Atorvastatin Calcium 80 MG Tablet PO (20:44)
[2019-06-21 21:26] LABS: Bedside Glucose 113 mg/dL (70-110)
[2019-06-22] MEDS: Nystatin Powder 15gm Bottle 1 APPLIC TOPICAL ×2 (06:39→20:22)
[2019-06-22 07:10] LABS: Bedside Glucose 102 mg/dL (70-110)
[2019-06-22] MEDS: Magnesium Oxide 400 MG Tablet PO (07:45)
[2019-06-22] MEDS: Aspirin 81 MG TAB.CHEW PO (07:45)
[2019-06-22] MEDS: Losartan Potassium 100 MG Tablet PO (07:45)
[2019-06-22] MEDS: hydroCHLOROthiazide 12.5mg 12.5 MG PO (07:46)
[2019-06-22] MEDS: Atenolol 50 MG Tablet PO (07:46)
[2019-06-22] MEDS: amLODIPine 5 MG Tablet PO (07:46)
[2019-06-22] MEDS: Clopidogrel Bisulfate 75 MG Tablet PO (07:46)
[2019-06-22] MEDS: Senna/Docusate Sodium 1 Tablet 2 TABLET PO ×2 (07:46→20:16)
[2019-06-22] MEDS: Famotidine 20 MG Tablet PO (07:46)
[2019-06-22] MEDS: LINAGLIPTIN 5 MG TABLET PO (07:47)
[2019-06-22] MEDS: Heparin Injection (Vial) 5,000 UNIT/ML VIAL 5000 UNIT SC ×2 (07:47→20:17)
[2019-06-22] MEDS: Menthol/Lanolin/Calamine/Znox 113 GM Tube 1 APPLIC TOPICAL ×2 (07:52→20:22)
[2019-06-22 09:58] VITALS: BP 150/76; PULSE 71; RESP 18; TEMP 36.9; O2SAT 95
[2019-06-22 11:36] LABS: Bedside Glucose 144 mg/dL (70-110)
[2019-06-22 13:01] VITALS: BMI 45.8
[2019-06-22] MEDS: Insulin Lispro 100 UNIT/ML INSULN.PEN SC (17:02)
[2019-06-22 17:21] LABS: Bedside Glucose 163 mg/dL (70-110)
[2019-06-22 19:39] VITALS: BP 132/59; PULSE 63; RESP 16; TEMP 36.7; O2SAT 96
[2019-06-22] MEDS: Atorvastatin Calcium 80 MG Tablet PO (20:17)
[2019-06-22 20:20] VITALS: PULSE 63; O2SAT 96; BMI 45.8
[2019-06-22 21:36] LABS: Bedside Glucose 143 mg/dL (70-110)
[2019-06-22 21:49] VITALS: BP 132/59; PULSE 63; RESP 16; TEMP 36.7; O2SAT 96
--- NOTE | 2019-06-23 03:43 | NURSING ---
Reviewed and agree with TOWBOAT ENGINEER documentation and charting.
[2019-06-23] MEDS: Nystatin Powder 15gm Bottle 1 APPLIC TOPICAL ×2 (06:37→21:09)
[2019-06-23 06:40] LABS: Anion Gap 7 (5-15); BUN 42 mg/dL (7-18); BUN/Creat Ratio 27.1 RATIO (10-20); Calcium,Total 9.5 mg/dL (8.5-10.1); Chloride 105 mmol/L (98-107); Creatinine, Serum 1.55 mg/dL (0.55-1.02); EST Glomerular Filtration Rate 35 mL/min (>60); Est Glom Filt Rate - Afr Amer 42 mL/min (>60); Estimated Creatinine Clearance 22.87 ml/min; Glucose 118 mg/dL (74-106); Magnesium 1.9 mg/dL (1.6-2.6); Potassium 3.9 mmol/L (3.5-5.1); Sodium Level 140 mmol/L (136-145)
[2019-06-23 07:05] LABS: Bedside Glucose 115 mg/dL (70-110)
[2019-06-23] MEDS: Famotidine 20 MG Tablet PO (08:24)
[2019-06-23] MEDS: Clopidogrel Bisulfate 75 MG Tablet PO (08:24)
[2019-06-23] MEDS: Aspirin 81 MG TAB.CHEW PO (08:24)
[2019-06-23] MEDS: amLODIPine 5 MG Tablet PO (08:24)
[2019-06-23] MEDS: LINAGLIPTIN 5 MG TABLET PO (08:25)
[2019-06-23] MEDS: Atenolol 50 MG Tablet PO (08:25)
[2019-06-23] MEDS: Magnesium Oxide 400 MG Tablet PO (08:26)
[2019-06-23] MEDS: hydroCHLOROthiazide 12.5mg 12.5 MG PO (08:27)
[2019-06-23] MEDS: Senna/Docusate Sodium 1 Tablet 2 TABLET PO (08:28)
[2019-06-23] MEDS: Losartan Potassium 100 MG Tablet PO (08:29)
[2019-06-23 08:30] VITALS: BP 123/49; PULSE 66; RESP 16; TEMP 36.6; O2SAT 96
[2019-06-23] MEDS: Heparin Injection (Vial) 5,000 UNIT/ML VIAL 5000 UNIT SC ×2 (09:00→21:09)
[2019-06-23] MEDS: Menthol/Lanolin/Calamine/Znox 113 GM Tube 1 APPLIC TOPICAL ×2 (09:03→21:09)
--- NOTE | 2019-06-23 10:52 | CASEMGMT ---
Social Work IDT met with pt and pt sister via conference call for Team meeting. Pt is transferring at mod assist x2 and balance is improving but this still is a concern. Pt also leaning right while walking. Pt walking 10ft with wall rail and rt side assist. Pt is having rt side weakness and is max assist for UE dressing and max x2 for LE dressing and toileting. Pt is on regular textures and thin liquid diet. ST recommending pt to sit up 90 degrees while eating and stay seated for 30-60 minutes after eating. Pt also recommended to eat alternating small sips and bites. Pt complains of blurry vision, physician explained that this was normal with the pts stroke. Pt to work on short term memory and improving self awareness. Pt is encouraged to drink fluids. Explained insurance to pt, NRD 06/22. Alesha Rincon, social work international relations teacher Keren Rivera, FIBERGLASS AUTO BODY REPAIRER UNIVERSITY REGISTRAR
[2019-06-23 12:16] LABS: Bedside Glucose 148 mg/dL (70-110)
--- NOTE | 2019-06-23 13:01 | PCM.PN.BLA ---
Progress Note Cortney was seen on TEAM rounds today. Her Sister Norah was on the phone while we were talking and participated in the conversation. She states that she noticed that Cortney was a little quicker with her thought processes yesterday when she was talking with her on the phone. Afebile VSS-the blood pressure has come under better control with the increase in Cozaar to 100 mg a day from 50 mg daily. Maintaining appropriate oxygen saturation on RA Oral intake is not adequate. She only took 540 cc yesterday. Discussed with nursing - no problems that need addressed Reviewed the PT/OT/ST notes Medication list reviewed. The blood sugar record was reviewed. Blood sugars are under excellent control. No hypoglycemia. All lab work was personally reviewed. Electrolytes are within normal limits. The magnesium is 1.9, up from 1.6 with supplementation. BUN is up to 42 from 31 on 06/20/2019. Creatinine was 1.46 on 06/20/2019 and currently is 1.55. She is complying with the directive to increase her fluid intake. She is alert and appropriate. She appears in no acute distress and she is sitting in the recliner at the bedside. She is smiling. No tachypnea. Lungs are diminished but CTA Heart-regular rate and rhythm -Abdomen-large pannus, intertrigo beneath the pannus which is being treated with nystatin powder. Nontender, nondistended, bowel sounds heard, no guarding with palpation No peripheral edema, no calf tenderness Impressions 1. Post CVA disability 2. Bilateral cerumen impaction 3. Diabetes mellitus type 2-very well controlled on a calorie controlled diet. Glipizide and metformin were discontinued due to increasing creatinine. She was started on Lantus 20units in the AM and see is also on Tradjenta (no adjustment in dose needed for renal failure. she is also on a sliding scale but she has only needed 1 unit in the past 48hours. will DC the SSI but, continue to check the BS AC and HS. 4. Renal failure stage III and recommended to her that she follow-up with a blood bank booking clerk post discharge. Creatinine clearance is in the 20s. 5. Vertigo-gradually improving 6. [id number]-jddr-[id number] now that the Cozaar is been increased to 100 mg daily 7. Diabetic nephropathy-microalbumin/creatinine ratio is 909. Recheck the BMP on Sunday and if the creat continues to climb will DC the Cozaar and consult Dr. Putnam from nephrology Inpatient E&M: 09321 Subs Hosp L2
[2019-06-23 13:34] VITALS: BMI 45.8
[2019-06-23 17:35] LABS: Bedside Glucose 134 mg/dL (70-110)
[2019-06-23] MEDS: Atorvastatin Calcium 80 MG Tablet PO (21:09)
[2019-06-23] MEDS: Insulin Lispro 100 UNIT/ML INSULN.PEN SC (21:11)
[2019-06-23 21:15] LABS: Bedside Glucose 152 mg/dL (70-110)
[2019-06-23 21:20] VITALS: PULSE 60; RESP 16; O2SAT 97
[2019-06-23 21:30] VITALS: BP 124/70; PULSE 72; RESP 16; TEMP 36.5; O2SAT 97; BMI 45.8
--- NOTE | 2019-06-24 03:33 | NURSING ---
Reviewed and agree with WASTEWATER SUPERINTENDENT documentation and charting.
[2019-06-24] MEDS: Nystatin Powder 15gm Bottle 1 APPLIC TOPICAL ×2 (05:40→21:26)
[2019-06-24 06:25] LABS: Bedside Glucose 140 mg/dL (70-110)
[2019-06-24 07:00] VITALS: BP 132/67; PULSE 64; RESP 17; TEMP 36.7; O2SAT 97
[2019-06-24] MEDS: amLODIPine 5 MG Tablet PO (08:27)
[2019-06-24] MEDS: Clopidogrel Bisulfate 75 MG Tablet PO (08:27)
[2019-06-24] MEDS: LINAGLIPTIN 5 MG TABLET PO (08:27)
[2019-06-24] MEDS: Losartan Potassium 100 MG Tablet PO (08:27)
[2019-06-24] MEDS: Famotidine 20 MG Tablet PO (08:27)
[2019-06-24] MEDS: Aspirin 81 MG TAB.CHEW PO (08:28)
[2019-06-24] MEDS: Atenolol 50 MG Tablet PO (08:28)
[2019-06-24] MEDS: Magnesium Oxide 400 MG Tablet PO (08:28)
[2019-06-24] MEDS: Menthol/Lanolin/Calamine/Znox 113 GM Tube 1 APPLIC TOPICAL ×2 (08:39→21:25)
[2019-06-24] MEDS: Heparin Injection (Vial) 5,000 UNIT/ML VIAL 5000 UNIT SC ×2 (09:28→21:32)
[2019-06-24 11:25] LABS: Bedside Glucose 172 mg/dL (70-110)
[2019-06-24] MEDS: Insulin Lispro 100 UNIT/ML INSULN.PEN SC ×2 (12:22→21:31)
[2019-06-24 14:57] VITALS: BMI 45.8
[2019-06-24 17:26] LABS: Bedside Glucose 111 mg/dL (70-110)
[2019-06-24 21:00] VITALS: BP 128/63; PULSE 62; RESP 17; TEMP 36.3; O2SAT 95; BMI 45.8
[2019-06-24] MEDS: Atorvastatin Calcium 80 MG Tablet PO (21:32)
[2019-06-24 21:56] LABS: Bedside Glucose 164 mg/dL (70-110)
--- NOTE | 2019-06-25 01:18 | NURSING ---
Reviewed and agree with DIGITAL MEDIA BUYER charting.
[2019-06-25] MEDS: Nystatin Powder 15gm Bottle 1 APPLIC TOPICAL (06:16)
[2019-06-25 06:51] LABS: Bedside Glucose 144 mg/dL (70-110)
[2019-06-25] MEDS: amLODIPine 5 MG Tablet PO (08:28)
[2019-06-25] MEDS: Atenolol 50 MG Tablet PO (08:28)
[2019-06-25] MEDS: Senna/Docusate Sodium 1 Tablet 2 TABLET PO (08:28)
[2019-06-25] MEDS: LINAGLIPTIN 5 MG TABLET PO (08:28)
[2019-06-25] MEDS: Famotidine 20 MG Tablet PO (08:28)
[2019-06-25] MEDS: Clopidogrel Bisulfate 75 MG Tablet PO (08:28)
[2019-06-25] MEDS: Losartan Potassium 100 MG Tablet PO (08:28)
[2019-06-25] MEDS: Aspirin 81 MG TAB.CHEW PO (08:28)
[2019-06-25] MEDS: Heparin Injection (Vial) 5,000 UNIT/ML VIAL 5000 UNIT SC (08:29)
[2019-06-25] MEDS: Magnesium Oxide 400 MG Tablet PO (08:29)
[2019-06-25 08:36] VITALS: BP 132/63; PULSE 78; RESP 20; TEMP 36.5; O2SAT 92
[2019-06-25] MEDS: Menthol/Lanolin/Calamine/Znox 113 GM Tube 1 APPLIC TOPICAL (08:37)
--- NOTE | 2019-06-25 10:25 | PCM.PN.BLA ---
STROKE Vital Signs/Narrative: Vital Signs Temp Pulse Resp BP Pulse Ox 06/25/19 08:36 97.7 F L 78 20 H 132/63 H 92
[2019-06-25 10:36] LABS: Bedside Glucose 206 mg/dL (70-110)
[2019-06-25 10:40] VITALS: BP 143/61; PULSE 64; RESP 12
--- NOTE | 2019-06-25 10:42 | CT_ITS ---
STUDY: CT BRAIN WITHOUT CONTRAST REASON FOR EXAM: Female, 73 years old. CVA, aphasia. RADIATION DOSAGE (If Supplied By Facility): CTDIvol = ( 44.99 ) mGy, DLP = ( 779.24 ) mGycm TECHNIQUE: Transaxial CT imaging of the brain was performed without administration of intravenous contrast material. Individualized dose optimization techniques were used for this CT. COMPARISON: Comparison is made with prior study dated June 16, 2019. FINDINGS: Normal soft tissue structures. There is hyperostosis frontalis internus. There is mild cerebral atrophy with widening of the extra-axial spaces and ventricular dilatation. There are areas of decreased attenuation within the white matter tracts of the supratentorial brain, consistent with microvascular disease changes. Normal basal ganglia and thalami. Normal brainstem. New area of the decreased attenuation in the right cerebellar hemisphere suggestive of acute infarction and edema. This extends into the right cerebellar region. There is no intracranial hemorrhage. There are no findings of an acute ischemic infarction. Stable opacification of the right maxillary sinus and the ethmoid sinuses bilaterally worse on the right side. CT/Brain/Head without Contrast IMPRESSION: New area of decreased attenuation in the right cerebellar hemisphere is suggestive of a acute ischemic infarction. Chronic involutional changes of the brain. Sinusitis. N.B. : The above information has been verbally conveyed by Andrew Merino to Venessa Todd on 06/25/2019 10:59:04 (ET). Electronically Signed: Andrew Merino, at 11:01 EDT , Service support ,
--- NOTE | 2019-06-25 10:48 | CT_ITS ---
STUDY: CTA HEAD AND NECK WITH CONTRAST REASON FOR EXAM: Female, 73 years old. EXPRESSIVE APHASIA RADIATION DOSAGE (If Supplied By Facility): CTDIvol = ( 22.48 ) mGy, DLP = ( 784.04 ) mGycm TECHNIQUE: CT angiography was performed with a multi-detector CT scanner. Data acquisition was obtained from the skull base through the vertex following intravenous administration of IV 100mL Isovue-[id number]. MIP images were reconstructed from the axial data set. Post-processing of the angiographic images was performed, with multiplanar reformation and 3D reconstruction. Individualized dose optimization techniques were used for this CT. COMPARISON: No relevant priors. FINDINGS: Normal bilateral petrous carotid arteries. There is calcified plaque formation of the right cavernous carotid artery, without a cross-sectional luminal stenosis. There is calcified plaque formation of the left cavernous carotid artery, without a cross-sectional luminal stenosis. Normal right A1 segments of the anterior cerebral artery. Normal left A1 segments of the anterior cerebral artery. Normal intact anterior communicating artery (ACOM). Normal bilateral A2 segments of the anterior cerebral arteries. Normal right M1 and M2 segments of the middle cerebral arteries, with a normal M1 bifurcation. Normal left M1 and M2 segments of the middle cerebral arteries, with a normal M1 bifurcation. Normal right posterior communicating artery (PCOM). Normal left posterior communicating artery (PCOM). Normal bilateral vertebral arteries. Normal basilar artery with a normal basilar bifurcation. The visualized bilateral superior cerebellar (SCA) arteries are normal. Normal bilateral P1, P2 and visualized P3 segments of the posterior cerebral arteries. There is no demonstrated aneurysm of the [place] of [place]. Cerebral atrophy. Right maxillary and bilateral ethmoid sinusitis worse on the right side. Images appearance of the thyroid gland suggestive of goiterous change. AORTIC ARCH: There is atherosclerotic calcific plaque formation of the aortic arch and great vessels arising from the aortic arch, without a hemodynamically significant stenosis. There is a normal origin of the brachiocephalic, left common carotid, and left subclavian arteries. RIGHT CAROTID ARTERIES: Normal right common carotid artery (CCA). Normal right common carotid bulb. There is moderate atherosclerotic plaque formation of the origin of the right internal carotid artery with an estimated stenosis of 50-69% stenosis. Normal visualized cervical portion of the right internal carotid artery. Normal origin of the right external carotid artery (ECA). LEFT CAROTID ARTERIES: There is atherosclerotic plaque formation of the common carotid artery, but without a hemodynamically significant stenosis. Normal left common carotid bulb. There is mild atherosclerotic plaque formation of the origin of the left internal carotid artery with less than 50% cross sectional diameter stenosis. Normal visualized cervical portion of the left internal carotid artery. Normal origin of the left external carotid artery (ECA). VERTEBRAL ARTERIES: There is enhancement within the bilateral vertebral arteries with a small left vertebral artery, and a dominant right vertebral artery. There is evidence of an intraluminal filling defect in the distal portion of the right vertebral artery. CT/CTA Head AND Neck W/ Contrast IMPRESSION: 50-69% stenosis of the right internal carotid artery at its origin. Less than 50% narrowing at the origin of the left internal carotid artery. Intraluminal clot is seen in the distal portion of the right vertebral artery just proximal to the basilar artery. Dense atherosclerotic calcification is seen at that site. N.B. : The above information has been verbally conveyed by Andrew Merino to Venessa Todd on 06/25/2019 11:16:45 (ET). Electronically Signed: Andrew Merion, at 11:19 EDT , Service support ,
[2019-06-25 10:49] VITALS: BP 120/67; PULSE 61; RESP 12; O2SAT 93
[2019-06-25 11:04] VITALS: BP 143/87; PULSE 68; RESP 12; O2SAT 98
--- NOTE | 2019-06-25 11:06 | CASEMGMT ---
Addendum entered by Keren Rivera 06/25/19 11:59: Met with sister and provided emotional and verbal support. Sister to meet pt at [facility]. Offered continued assistance. Original Note: Social Work Responded to Stroke Alert for patient. Spoke with sister for her to come into the hospital for change in condition. Awaiting sister and arrival for support. Insurance contacted . Notified C.M. of stroke alert. C.M. approved pt with NRD 06/29 and to notify insurance if pt does not return to [facility]. Will continue to follow. Keren Rivera, [facility]
--- NOTE | 2019-06-25 11:20 | PCM.DC.SUM ---
Discharge Date and Diagnosis - Problem List Patient Problems: Active and Suspected Problems Dysarthria (Acute) Aphasia (Acute) Occlusion of right vertebral artery (Acute) Asymptomatic bacteriuria (Acute) Date of Admission: 06/19/19 Date of Discharge: 06/25/19 - Primary Discharge Diagnosis Active and Suspected Problems post stroke debility subacute R cerebellar ischemic CVA Right vertebral artery clot Extension of right cerebellar infarct Aphasia and dysarthria-new onset Asymptomatic bacteriuria (Acute) - Secondary Discharge Diagnosis Chronic Problems BPPV (benign paroxysmal positional vertigo) (Chronic) Grade II diastolic dysfunction (Chronic) Left atrial enlargement (Chronic) Mild Proteinuria (Chronic) Diabetic nephropathy (Chronic) Diabetes mellitus, type II (Chronic) HTN (hypertension) (Chronic) HLD (hyperlipidemia) (Chronic) GERD (gastroesophageal reflux disease) (Chronic) Morbid obesity with BMI of 40.0-44.9, adult (Chronic) CKD (chronic kidney disease), stage III (Chronic) BL cerumen impaction Hospital Course and Treatment Imaging Results: 06/25/19 10:42 Brain/Head without Contrast [CT] Urgent 06/25/19 10:48 CTA Head AND Neck W/ Contrast [CT] Urgent Clinical Impression(s) from Imaging Studies Brain CT 06/25/19 10:42 IMPRESSION: New area of decreased attenuation in the right cerebellar hemisphere is suggestive of a acute ischemic infarction. Chronic involutional changes of the brain. Sinusitis. N.B. : The above information has been verbally conveyed by Andrew Merino to [facility] on 06/25/2019 10:59:04 (ET). Electronically Signed: Andrew Merino, at 11:01 EDT , Service support , ADDENDUM: 06/25/19 1108 IMPRESSION: New area of decreased attenuation in the right cerebellar hemisphere is suggestive of a acute ischemic infarction. Chronic involutional changes of the brain. Sinusitis. N.B. : The above information [facility] 06/25/2019 10:59:04 (ET). Electronically Signed: Andrew Merino, at 11:01 EDT , Service support , Head/Neck CTA 06/25/19 10:48 IMPRESSION: 50-69% stenosis of the right internal carotid artery at its origin. Less than 50% narrowing at the origin of the left internal carotid artery. Intraluminal clot is seen in the distal portion of the right vertebral artery just proximal to the basilar artery. Dense atherosclerotic calcification is seen at that site. N.B. : The above information has been verbally conveyed by Andrew Merino to Venessa Todd on 06/25/2019 11:16:45 (ET). Electronically Signed: Andrew Merino, at 11:19 EDT , Service support , Laboratory Tests 06/25/19 06/25/19 06/25/19 Range/Units 10:50 10:30 06:26 WBC (4.4-11.0) K/mm3 RBC (4.2-5.4) M/mm3 Hgb (12.0-15.0) g/dL Hct (37-47) % MCV (81-99) fL MCH (27.0-32.0) pg MCHC (32-36) g/dL RDW Std Deviation (35.1-43.9) fl RDW Coeff of Umu (11.6-14.6) % Plt Count (150-450) K/mm3 MPV (6.2-12.0) fl Immature Gran % (Auto) (0.0-0.9) % Neut % (Auto) (47-70) % Lymph % (Auto) (19-41) % [place] % (Auto) (0-10) % Eos % (Auto) (0-5) % Baso % (Auto) (0-1) % Absolute Neuts (auto) (2.0-7.7) X10^3/uL Absolute Lymphs (auto) (0.83-4.51) X10^3/uL Nucleated RBC % (0-5) % Sodium 134 L (136-145) mmol/L Potassium 4.2 (3.5-5.1) mmol/L Chloride 100 (98-107) mmol/L Carbon Dioxide 29.0 (21.0-32.0) mmol/L Anion Gap 5 (5-15) BUN 47 H (7-18) mg/dL Creatinine 1.54 H (0.55-1.02) mg/dL Estim Creat Clear Calc 23.02 ml/min Est GFR (MDRD) Af Amer 42 L (>60) mL/min Est GFR (MDRD) Non-Af 35 L (>60) mL/min BUN/Creatinine Ratio 30.5 H (10-20) RATIO Glucose 200 H (74-106) mg/dL Calcium 9.6 (8.5-10.1) mg/dL Magnesium (1.6-2.6) mg/dL Ur Random Microalbumin (NO RANGE EST.) mg/L Urine Creatinine (NO RANGE EST.) mg/dL Microalb/Creat Ratio (<30 mg/g CRE) mg/g CRE POC Glucose 206 H 144 H (70-110) mg/dL 06/24/19 06/24/19 06/24/19 Range/Units 21:30 17:14 11:14 WBC (4.4-11.0) K/mm3 RBC (4.2-5.4) M/mm3 Hgb (12.0-15.0) g/dL Hct (37-47) % MCV (81-99) fL MCH (27.0-32.0) pg MCHC (32-36) g/dL RDW Std Deviation (35.1-43.9) fl RDW Coeff of Umu (11.6-14.6) % Plt Count (150-450) K/mm3 MPV (6.2-12.0) fl Immature Gran % (Auto) (0.0-0.9) % Neut % (Auto) (47-70) % Lymph % (Auto) (19-41) % [place] % (Auto) (0-10) % Eos % (Auto) (0-5) % Baso % (Auto) (0-1) % Absolute Neuts (auto) (2.0-7.7) X10^3/uL Absolute Lymphs (auto) (0.83-4.51) X10^3/uL Nucleated RBC % (0-5) % Sodium (136-145) mmol/L Potassium (3.5-5.1) mmol/L Chloride (98-107) mmol/L Carbon Dioxide (21.0-32.0) mmol/L Anion Gap (5-15) BUN (7-18) mg/dL Creatinine (0.55-1.02) mg/dL Estim Creat Clear Calc ml/min Est GFR (MDRD) Af Amer (>60) mL/min Est GFR (MDRD) Non-Af (>60) mL/min BUN/Creatinine Ratio (10-20) RATIO Glucose (74-106) mg/dL Calcium (8.5-10.1) mg/dL Magnesium (1.6-2.6) mg/dL Ur Random Microalbumin (NO RANGE EST.) mg/L Urine Creatinine (NO RANGE EST.) mg/dL Microalb/Creat Ratio (<30 mg/g CRE) mg/g CRE POC Glucose 164 H 111 H 172 H (70-110) mg/dL 06/24/19 06/23/19 06/23/19 Range/Units 06:16 21:09 17:25 WBC (4.4-11.0) K/mm3 RBC (4.2-5.4) M/mm3 Hgb (12.0-15.0) g/dL Hct (37-47) % MCV (81-99) fL MCH (27.0-32.0) pg MCHC (32-36) g/dL RDW Std Deviation (35.1-43.9) fl RDW Coeff of Umu (11.6-14.6) % Plt Count (150-450) K/mm3 MPV (6.2-12.0) fl Immature Gran % (Auto) (0.0-0.9) % Neut % (Auto) (47-70) % Lymph % (Auto) (19-41) % [place] % (Auto) (0-10) % Eos % (Auto) (0-5) % Baso % (Auto) (0-1) % Absolute Neuts (auto) (2.0-7.7) X10^3/uL Absolute Lymphs (auto) (0.83-4.51) X10^3/uL Nucleated RBC % (0-5) % Sodium (136-145) mmol/L Potassium (3.5-5.1) mmol/L Chloride (98-107) mmol/L Carbon Dioxide (21.0-32.0) mmol/L Anion Gap (5-15) BUN (7-18) mg/dL Creatinine (0.55-1.02) mg/dL Estim Creat Clear Calc ml/min Est GFR (MDRD) Af Amer (>60) mL/min Est GFR (MDRD) Non-Af (>60) mL/min BUN/Creatinine Ratio (10-20) RATIO Glucose (74-106) mg/dL Calcium (8.5-10.1) mg/dL Magnesium (1.6-2.6) mg/dL Ur Random Microalbumin (NO RANGE EST.) mg/L Urine Creatinine (NO RANGE EST.) mg/dL Microalb/Creat Ratio (<30 mg/g CRE) mg/g CRE POC Glucose 140 H 152 H 134 H (70-110) mg/dL 06/23/19 06/23/19 06/23/19 Range/Units 11:59 06:58 05:38 WBC (4.4-11.0) K/mm3 RBC (4.2-5.4) M/mm3 Hgb (12.0-15.0) g/dL Hct (37-47) % MCV (81-99) fL MCH (27.0-32.0) pg MCHC (32-36) g/dL RDW Std Deviation (35.1-43.9) fl RDW Coeff of Umu (11.6-14.6) % Plt Count (150-450) K/mm3 MPV (6.2-12.0) fl Immature Gran % (Auto) (0.0-0.9) % Neut % (Auto) (47-70) % Lymph % (Auto) (19-41) % [place] % (Auto) (0-10) % Eos % (Auto) (0-5) % Baso % (Auto) (0-1) % Absolute Neuts (auto) (2.0-7.7) X10^3/uL Absolute Lymphs (auto) (0.83-4.51) X10^3/uL Nucleated RBC % (0-5) % Sodium 140 (136-145) mmol/L Potassium 3.9 (3.5-5.1) mmol/L Chloride 105 (98-107) mmol/L Carbon Dioxide 28.0 (21.0-32.0) mmol/L Anion Gap 7 (5-15) BUN 42 H (7-18) mg/dL Creatinine 1.55 H (0.55-1.02) mg/dL Estim Creat Clear Calc 22.87 ml/min Est GFR (MDRD) Af Amer 42 L (>60) mL/min Est GFR (MDRD) Non-Af 35 L (>60) mL/min BUN/Creatinine Ratio 27.1 H (10-20) RATIO Glucose 118 H (74-106) mg/dL Calcium 9.5 (8.5-10.1) mg/dL Magnesium 1.9 (1.6-2.6) mg/dL Ur Random Microalbumin (NO RANGE EST.) mg/L Urine Creatinine (NO RANGE EST.) mg/dL Microalb/Creat Ratio (<30 mg/g CRE) mg/g CRE POC Glucose 148 H 115 H (70-110) mg/dL 06/22/19 06/22/19 06/22/19 Range/Units 20:15 17:00 11:21 WBC (4.4-11.0) K/mm3 RBC (4.2-5.4) M/mm3 Hgb (12.0-15.0) g/dL Hct (37-47) % MCV (81-99) fL MCH (27.0-32.0) pg MCHC (32-36) g/dL RDW Std Deviation (35.1-43.9) fl RDW Coeff of Umu (11.6-14.6) % Plt Count (150-450) K/mm3 MPV (6.2-12.0) fl Immature Gran % (Auto) (0.0-0.9) % Neut % (Auto) (47-70) % Lymph % (Auto) (19-41) % [place] % (Auto) (0-10) % Eos % (Auto) (0-5) % Baso % (Auto) (0-1) % Absolute Neuts (auto) (2.0-7.7) X10^3/uL Absolute Lymphs (auto) (0.83-4.51) X10^3/uL Nucleated RBC % (0-5) % Sodium (136-145) mmol/L Potassium (3.5-5.1) mmol/L Chloride (98-107) mmol/L Carbon Dioxide (21.0-32.0) mmol/L Anion Gap (5-15) BUN (7-18) mg/dL Creatinine (0.55-1.02) mg/dL Estim Creat Clear Calc ml/min Est GFR (MDRD) Af Amer (>60) mL/min Est GFR (MDRD) Non-Af (>60) mL/min BUN/Creatinine Ratio (10-20) RATIO Glucose (74-106) mg/dL Calcium (8.5-10.1) mg/dL Magnesium (1.6-2.6) mg/dL Ur Random Microalbumin (NO RANGE EST.) mg/L Urine Creatinine (NO RANGE EST.) mg/dL Microalb/Creat Ratio (<30 mg/g CRE) mg/g CRE POC Glucose 143 H 163 H 144 H (70-110) mg/dL 06/22/19 06/21/19 06/21/19 Range/Units 06:50 20:55 16:56 WBC (4.4-11.0) K/mm3 RBC (4.2-5.4) M/mm3 Hgb (12.0-15.0) g/dL Hct (37-47) % MCV (81-99) fL MCH (27.0-32.0) pg MCHC (32-36) g/dL RDW Std Deviation (35.1-43.9) fl RDW Coeff of Umu (11.6-14.6) % Plt Count (150-450) K/mm3 MPV (6.2-12.0) fl Immature Gran % (Auto) (0.0-0.9) % Neut % (Auto) (47-70) % Lymph % (Auto) (19-41) % [place] % (Auto) (0-10) % Eos % (Auto) (0-5) % Baso % (Auto) (0-1) % Absolute Neuts (auto) (2.0-7.7) X10^3/uL Absolute Lymphs (auto) (0.83-4.51) X10^3/uL Nucleated RBC % (0-5) % Sodium (136-145) mmol/L Potassium (3.5-5.1) mmol/L Chloride (98-107) mmol/L Carbon Dioxide (21.0-32.0) mmol/L Anion Gap (5-15) BUN (7-18) mg/dL Creatinine (0.55-1.02) mg/dL Estim Creat Clear Calc ml/min Est GFR (MDRD) Af Amer (>60) mL/min Est GFR (MDRD) Non-Af (>60) mL/min BUN/Creatinine Ratio (10-20) RATIO Glucose (74-106) mg/dL Calcium (8.5-10.1) mg/dL Magnesium (1.6-2.6) mg/dL Ur Random Microalbumin (NO RANGE EST.) mg/L Urine Creatinine (NO RANGE EST.) mg/dL Microalb/Creat Ratio (<30 mg/g CRE) mg/g CRE POC Glucose 102 113 H 151 H (70-110) mg/dL 06/21/19 06/21/19 06/20/19 Range/Units 11:37 06:46 21:10 WBC (4.4-11.0) K/mm3 RBC (4.2-5.4) M/mm3 Hgb (12.0-15.0) g/dL Hct (37-47) % MCV (81-99) fL MCH (27.0-32.0) pg MCHC (32-36) g/dL RDW Std Deviation (35.1-43.9) fl RDW Coeff of Umu (11.6-14.6) % Plt Count (150-450) K/mm3 MPV (6.2-12.0) fl Immature Gran % (Auto) (0.0-0.9) % Neut % (Auto) (47-70) % Lymph % (Auto) (19-41) % [place] % (Auto) (0-10) % Eos % (Auto) (0-5) % Baso % (Auto) (0-1) % Absolute Neuts (auto) (2.0-7.7) X10^3/uL Absolute Lymphs (auto) (0.83-4.51) X10^3/uL Nucleated RBC % (0-5) % Sodium (136-145) mmol/L Potassium (3.5-5.1) mmol/L Chloride (98-107) mmol/L Carbon Dioxide (21.0-32.0) mmol/L Anion Gap (5-15) BUN (7-18) mg/dL Creatinine (0.55-1.02) mg/dL Estim Creat Clear Calc ml/min Est GFR (MDRD) Af Amer (>60) mL/min Est GFR (MDRD) Non-Af (>60) mL/min BUN/Creatinine Ratio (10-20) RATIO Glucose (74-106) mg/dL Calcium (8.5-10.1) mg/dL Magnesium (1.6-2.6) mg/dL Ur Random Microalbumin (NO RANGE EST.) mg/L Urine Creatinine (NO RANGE EST.) mg/dL Microalb/Creat Ratio (<30 mg/g CRE) mg/g CRE POC Glucose 182 H 118 H 109 (70-110) mg/dL 06/20/19 06/20/19 06/20/19 Range/Units 17:27 11:25 07:23 WBC (4.4-11.0) K/mm3 RBC (4.2-5.4) M/mm3 Hgb (12.0-15.0) g/dL Hct (37-47) % MCV (81-99) fL MCH (27.0-32.0) pg MCHC (32-36) g/dL RDW Std Deviation (35.1-43.9) fl RDW Coeff of Umu (11.6-14.6) % Plt Count (150-450) K/mm3 MPV (6.2-12.0) fl Immature Gran % (Auto) (0.0-0.9) % Neut % (Auto) (47-70) % Lymph % (Auto) (19-41) % [place] % (Auto) (0-10) % Eos % (Auto) (0-5) % Baso % (Auto) (0-1) % Absolute Neuts (auto) (2.0-7.7) X10^3/uL Absolute Lymphs (auto) (0.83-4.51) X10^3/uL Nucleated RBC % (0-5) % Sodium 137 (136-145) mmol/L Potassium 4.1 (3.5-5.1) mmol/L Chloride 104 (98-107) mmol/L Carbon Dioxide 25.0 (21.0-32.0) mmol/L Anion Gap 8 (5-15) BUN 31 H (7-18) mg/dL Creatinine 1.46 H (0.55-1.02) mg/dL Estim Creat Clear Calc 24.28 ml/min Est GFR (MDRD) Af Amer 45 L (>60) mL/min Est GFR (MDRD) Non-Af 37 L (>60) mL/min BUN/Creatinine Ratio 21.2 H (10-20) RATIO Glucose 163 H (74-106) mg/dL Calcium 9.6 (8.5-10.1) mg/dL Magnesium 1.6 (1.6-2.6) mg/dL Ur Random Microalbumin (NO RANGE EST.) mg/L Urine Creatinine (NO RANGE EST.) mg/dL Microalb/Creat Ratio (<30 mg/g CRE) mg/g CRE POC Glucose 183 H 208 H (70-110) mg/dL 06/20/19 06/20/19 06/20/19 Range/Units 07:23 06:15 00:05 WBC 11.6 H (4.4-11.0) K/mm3 RBC 4.18 L (4.2-5.4) M/mm3 Hgb 11.6 L (12.0-15.0) g/dL Hct 36.4 L (37-47) % MCV 87.1 (81-99) fL MCH 27.8 (27.0-32.0) pg MCHC 31.9 L (32-36) g/dL RDW Std Deviation 43.4 (35.1-43.9) fl RDW Coeff of Umu 13.7 (11.6-14.6) % Plt Count 323 (150-450) K/mm3 MPV 9.8 (6.2-12.0) fl Immature Gran % (Auto) 0.500 (0.0-0.9) % Neut % (Auto) 73.1 H (47-70) % Lymph % (Auto) 18.1 L (19-41) % [place] % (Auto) 6.3 (0-10) % Eos % (Auto) 1.7 (0-5) % Baso % (Auto) 0.3 (0-1) % Absolute Neuts (auto) 8.5 H (2.0-7.7) X10^3/uL Absolute Lymphs (auto) 2.10 (0.83-4.51) X10^3/uL Nucleated RBC % 0 (0-5) % Sodium (136-145) mmol/L Potassium (3.5-5.1) mmol/L Chloride (98-107) mmol/L Carbon Dioxide (21.0-32.0) mmol/L Anion Gap (5-15) BUN (7-18) mg/dL Creatinine (0.55-1.02) mg/dL Estim Creat Clear Calc ml/min Est GFR (MDRD) Af Amer (>60) mL/min Est GFR (MDRD) Non-Af (>60) mL/min BUN/Creatinine Ratio (10-20) RATIO Glucose (74-106) mg/dL Calcium (8.5-10.1) mg/dL Magnesium (1.6-2.6) mg/dL Ur Random Microalbumin 2100.0 (NO RANGE EST.) mg/L Urine Creatinine 231.00 (NO RANGE EST.) mg/dL Microalb/Creat Ratio 909.1 H (<30 mg/g CRE) mg/g CRE POC Glucose 149 H (70-110) mg/dL 06/19/19 06/19/19 06/19/19 Range/Units 21:38 16:45 11:50 WBC (4.4-11.0) K/mm3 RBC (4.2-5.4) M/mm3 Hgb (12.0-15.0) g/dL Hct (37-47) % MCV (81-99) fL MCH (27.0-32.0) pg MCHC (32-36) g/dL RDW Std Deviation (35.1-43.9) fl RDW Coeff of Umu (11.6-14.6) % Plt Count (150-450) K/mm3 MPV (6.2-12.0) fl Immature Gran % (Auto) (0.0-0.9) % Neut % (Auto) (47-70) % Lymph % (Auto) (19-41) % [place] % (Auto) (0-10) % Eos % (Auto) (0-5) % Baso % (Auto) (0-1) % Absolute Neuts (auto) (2.0-7.7) X10^3/uL Absolute Lymphs (auto) (0.83-4.51) X10^3/uL Nucleated RBC % (0-5) % Sodium (136-145) mmol/L Potassium (3.5-5.1) mmol/L Chloride (98-107) mmol/L Carbon Dioxide (21.0-32.0) mmol/L Anion Gap (5-15) BUN (7-18) mg/dL Creatinine (0.55-1.02) mg/dL Estim Creat Clear Calc ml/min Est GFR (MDRD) Af Amer (>60) mL/min Est GFR (MDRD) Non-Af (>60) mL/min BUN/Creatinine Ratio (10-20) RATIO Glucose (74-106) mg/dL Calcium (8.5-10.1) mg/dL Magnesium (1.6-2.6) mg/dL Ur Random Microalbumin (NO RANGE EST.) mg/L Urine Creatinine (NO RANGE EST.) mg/dL Microalb/Creat Ratio (<30 mg/g CRE) mg/g CRE POC Glucose 201 H 179 H 214 H (70-110) mg/dL Operations: None Procedures: None Summary of Care Provided: The patient is a 73 year old F with a past medical history of hypertension, diabetes mellitus type 2, hyperlipidemia, morbid obesity, GERD, BPPV, chronic renal failure stage III, stage II diastolic dysfunction, mild left atrial enlargement and recent right cerebellar ischemic infarct who was admitted to [facility] on 06/16/2019 complaining of vertigo that she had had intermittently for for approximately 1 week. She also complained of tinnitus and nausea/vomiting. A noncontrasted CT brain in the emergency department showed no CT evidence of acute infarct or hemorrhage. She had a hx of BPPV and she was admitted to the hospital for suspected recurrent BPPV. MRI was done on 06/17/2019 and showed an acute right cerebellar infarct. Echocardiogram and carotid ultrasound were obtained and the results are below. He was seen by PT/OT/ST in the hospital and they recommended transfer to an acute rehab facility at discharge. She was admitted to the inpatient rehab unit at [facility] on 06/19/2019 for debility secondary to right cerebellar ischemic infarct. She was admitted for > 3 hours of therapy daily to return her at or near her prior level of independence. She was using a quad cane for ambulation prior to recent CVA. She was independent with ADL's and driving prior to CVA. She lives by herself. She has a walk-in shower with grab bars at home. Recent HGBA1C was 7.4%. Significant lab during her stay showed an increase in her creatinine from 1.37 on 06/16/19 to 1.54 on 06/2519. Sodium on the day of discharge is mildly decreased at 134. Her BUN is 47. Blood sugars have been well controlled with no hypoglycemia. Blood pressure has been well controlled and her vital signs on the day of discharge were pulse 68, blood pressure 143/87, respiratory rate 12 and she was 98% on room air. At approximately 10 AM on 06/25/2019 the patient was noted to have new onset a aphasia and dysarthria. She had good strength in all extremities and intact sensation with no neglect. She has apraxia with the right arm and right leg on physical exam but, this was present at admisison to the rehab unit. She was only able to name 4 of 6 objects. The BS was 206 at the time the stroke alert was called. A stroke alert was called and a stat noncontrasted CT brain was done. Showed a new area of decreased attenuation in the right cerebellar hemisphere suggestive of acute infarction and edema. There was no hemorrhagic transformation. A CTA of the head and neck was done and showed a luminal clot in the distal portion of the right vertebral artery just proximal to the basilar artery. There was dense atherosclerotic calcification at that site. There was 50 to 69% stenosis of the right internal carotid artery at its origin and less than 50% narrowing at the origin of the left internal carotid artery. [facility] telestroke was called and I discussed the case with Dr. Mckeon. She is not a candidate for TPA due to the recent stroke. Because of the clot and the need to be monitored by an in-house neurologist for swelling the decision was made to transfer her to [facility]. She will be accepted by Dr. Nj in the ED. I notified her sister Norah who was able to see Tracey prior to transfer. Tracey is a full code and this was discussed with her at admission to the rehab unit. When she is discharged from [facility] we will be happy to take her back to the inpt rehab unit at [facility]. Transthoracic echocardiogram Interpretation Summary Normal LV size. The estimated ejection fraction is 60 %. Stage 2 diastolic dysfunction. The left atrium is mildly enlarged. The study was technically difficult. Contrast injection was performed. Carotid ultrasound Interpretation Summary Mild irregular heterogenous plaque right common carotid and proximal internal carotid <50% stenosis right internal carotid <50% stenosis right external carotid Tortuous left internal carotid with mild irregular plaque within the left common carotid and internal carotid <50% stenosis left internal carotid <50% stenosis left external carotid Patent, antegrade vertebrals bilaterally Alert, aphasic and with dysarthria Lungs - CTA, no CP and no SOB Heart - RRR no gallop and no hx of AF Abd - obese, soft, NT and ND 5/5 strength in all extremities, Apraxia with the right arm and right leg, tactile sensation, no neglect, extraocular muscles are intact, she initially had a mild right facial droop but this resolved This note was generated with [employer] dictation software. It may contain incorrect words, spelling, and punctuation that were not noted in checking the note before signing. Patient Problems: Active and Suspected Problems Dysarthria (Acute) Aphasia (Acute) Occlusion of right vertebral artery (Acute) Asymptomatic bacteriuria (Acute) - Physical Exam Vitals/I&O's: Vital Signs Temp Pulse Resp BP Pulse Ox 97.7 F L 68 12 143/87 H 98 06/25/19 08:36 06/25/19 11:04 06/25/19 11:04 06/25/19 11:04 06/25/19 11:04 Oxygen Delivery Method Room Air Weight: 234 lb 9.149 oz Body Mass Index (BMI) 45.8 Finger Stick Blood Glucose 206 Intake and Output for Last 24 Hours 06/23/19 06/24/19 06/25/19 23:59 23:59 23:59 Intake Total 1220 / 1220 1300 / 1300 280 / 280 Output Total 1200 / 1200 1100 / 1100 950 / 950 Balance 200 / 200 -670 / -670 Laboratory Results 06/24/19 11:14: POC Glucose 172 H 06/24/19 17:14: POC Glucose 111 H 06/24/19 21:30: POC Glucose 164 H 06/25/19 06:26: POC Glucose 144 H 06/25/19 10:30: POC Glucose 206 H 06/25/19 10:50: Sodium Pending, Potassium Pending, Chloride Pending, Carbon Dioxide Pending, Anion Gap Pending, BUN Pending, Creatinine Pending, Est GFR (MDRD) Af Amer Pending, Est GFR (MDRD) Non-Af Pending, BUN/Creatinine Ratio Pending, Glucose Pending, Calcium Pending Current Medications Al Hydroxide/Mg Hydroxide (Mylanta Ii) 15 ml PO Q4H PRN PRN PRN Reason: reflux/heartburn Amlodipine Besylate (Norvasc) 5 mg PO DAILY [facility] Last Admin: 06/25/19 08:28 Dose: 5 mg Documented by: Aspirin (Aspirin, Baby) 81 mg PO DAILY@0800 [facility] Last Admin: 06/25/19 08:28 Dose: 81 mg Documented by: Atenolol (Tenormin (Beta Christel)) 50 mg PO DAILY [facility] Last Admin: 06/25/19 08:28 Dose: 50 mg Documented by: Atorvastatin Calcium (Lipitor) 80 mg PO QHS [facility] Last Admin: 06/24/19 21:32 Dose: 80 mg Documented by: Bisacodyl (Dulcolax) 10 mg RECTAL .PRN X 1 PRN PRN Reason: Constipation Calamine/Phenol (Calmoseptine Ointment) 1 applic TOPICAL BID [facility]; Protocol Last Admin: 06/25/19 08:37 Dose: 1 applicatio Documented by: Clopidogrel Bisulfate (Plavix) 75 mg PO DAILY [facility] Stop: 07/10/19 10:01 Last Admin: 06/25/19 08:28 Dose: 75 mg Documented by: Famotidine (Pepcid) 20 mg PO DAILY [facility] Last Admin: 06/25/19 08:28 Dose: 20 mg Documented by: Heparin Sodium (Porcine) (Heparin Na) 5,000 unit SC Q12 [facility] Last Admin: 06/25/19 08:29 Dose: 5,000 unit Documented by: Insulin Glargine (Lantus (Bkc)) 20 units SC DAILY [facility] Last Admin: 06/25/19 08:29 Dose: 20 units Documented by: Insulin Human Lispro (Humalog Kwikpen (Bkc)) 0 unit SC [facility]; Protocol Last Admin: 06/25/19 06:34 Dose: Not Given Documented by: Linagliptin (Tradjenta) 5 mg PO DAILY [facility] Last Admin: 06/25/19 08:28 Dose: 5 mg Documented by: Losartan Potassium (Cozaar) 100 mg PO DAILY [facility] Last Admin: 06/25/19 08:28 Dose: 100 mg Documented by: Magnesium Hydroxide (Milk Of Magnesia) 30 ml PO .PRN X 1 PRN PRN Reason: Constipation Last Admin: 06/20/19 05:22 Dose: 30 ml Documented by: Magnesium Oxide (Mag-Ox 400) 400 mg PO [facility] Last Admin: 06/25/19 08:29 Dose: 400 mg Documented by: Meclizine HCl (Antivert) 25 mg PO 4X/DAY PRN PRN PRN Reason: vertigo Multi-Ingredient Cream (Eucerin) 1 applic TOPICAL BID PRN PRN; Protocol PRN Reason: DRY SKIN Last Admin: 06/24/19 21:26 Dose: 1 applicatio Documented by: Nystatin (Mycostatin Powder) 1 applic TOPICAL BID@0600,2200 [facility]; Protocol Last Admin: 06/25/19 06:16 Dose: 1 applicatio Documented by: Senna/Docusate Sodium (Senokot-S, Niya-Colace) 2 tablet PO BID [facility] Last Admin: 06/25/19 08:28 Dose: 2 tablet Documented by: Home Medications: Medications to take at Discharge Amlodipine [Norvasc] 5 mg PO DAILY 09/07/16 Atenolol [Tenormin (beta christel)] 50 mg PO DAILY 09/07/16 glipiZIDE [Glucotrol] 5 mg PO BIDAC 09/07/16 Multivitamin [Multiple Vitamins] 1 each PO DAILY 09/08/16 glipiZIDE [Glucotrol] 10 mg PO LUNCH 09/08/16 Esomeprazole Magnesium [Nexium 24Hr] 20 mg PO QODAY 06/16/19 Losartan Potassium 50 mg PO DAILY 06/16/19 Metformin HCl 500 mg PO BID 06/16/19 Sitagliptin Phosphate [Januvia] 50 mg PO DAILY 06/16/19 Aspirin [Aspirin, Baby] 81 mg PO DAILY@0800 06/19/19 Atorvastatin Calcium [Lipitor] 80 mg PO QHS 06/19/19 Clopidogrel Bisulfate [Plavix] 75 mg PO DAILY 06/19/19 Primary Care Physician: Flavia Aldrich MD [Primary Care Provider] - Disposition: [facility] ED-Dr. [place] accepting Minutes spent on discharge:: 45 Patient Condition:: Guarded Medical Necessity - Tobacco Use Smoking Status: Never smoker Tobacco Use: Non-smoker Meaningful Use Info Meaningful Use Diagnoses (Choose all that apply): Ischemic CVA - CVA Therapy Assessed for PT,OT and/or ST?: Yes - Ischemic Stroke Antithrombotic order at d/c?: Yes Dx of Atrial fib/flutter?: No Anticoagulant at discharge?: No Reason anticoagulant not ordered: Treatment not Indicated Statins at discharge?: Yes Primary Dx Acute Ischemic CVA?: Yes IV tPA ordered during stay?: No Reason IV t-PA not ordered: Treatment not Indicated Inpatient E&M: 70725 Disch Hosp
[2019-06-25 11:21] LABS: Anion Gap 5 (5-15); BUN 47 mg/dL (7-18); BUN/Creat Ratio 30.5 RATIO (10-20); Calcium,Total 9.6 mg/dL (8.5-10.1); Chloride 100 mmol/L (98-107); Creatinine, Serum 1.54 mg/dL (0.55-1.02); EST Glomerular Filtration Rate 35 mL/min (>60); Est Glom Filt Rate - Afr Amer 42 mL/min (>60); Estimated Creatinine Clearance 23.02 ml/min; Glucose 200 mg/dL (74-106); Potassium 4.2 mmol/L (3.5-5.1); Sodium Level 134 mmol/L (136-145)
== END 2019-06-25 11:23 | disposition short-term general hospital (02) | DRG 57 ==
PROVIDERS: Admitting Provider Internal Medicine; PCP Internal Medicine; Referring Provider Internal Medicine; Visit Provider Internal Medicine
DX: I69.390 Apraxia following cerebral infarction (principal); Z68.41 Body mass index [BMI] 40.0-44.9, adult; R47.01 Aphasia; I65.01 Occlusion and stenosis of right vertebral artery; I69.398 Other sequelae of cerebral infarction; I12.9 Hypertensive chronic kidney disease with stage 1 through stage 4 chronic kidney disease, or unspecified chronic kidney disease; N18.3 Chronic kidney disease, stage 3 (moderate); E11.22 Type 2 diabetes mellitus with diabetic chronic kidney disease; H61.23 Impacted cerumen, bilateral; H81.10 Benign paroxysmal vertigo, unspecified ear; K21.9 Gastro-esophageal reflux disease without esophagitis; E66.01 Morbid (severe) obesity due to excess calories; Z71.3 Dietary counseling and surveillance; I51.7 Cardiomegaly; E78.5 Hyperlipidemia, unspecified; R47.1 Dysarthria and anarthria; R48.2 Apraxia
CPT/HCPCS: 36415; 70450; 70496; 70498; 80048; 82043; 82570; 82962; 83735; 85025; 92507; 92523; 92526; 92610; 97110; 97112; 97116; 97162; 97166; 97530; 97535; 97803; 99251; Q9967; G0463

== ENCOUNTER 2019-06-25 11:32 | Inpatient (IN) | payer MEDICARE, SELFPAY ==
[2019-06-24 21:00] VITALS: BMI 45.8
[2019-06-25 11:32] VITALS: BP 145/108; PULSE 69; RESP 16; O2SAT 98
== END 2019-06-25 11:45 | disposition short-term general hospital (02) | DRG 951 ==
LOC: ICU 11:34
PROVIDERS: Admitting Provider Internal Medicine; PCP Internal Medicine; Referring Provider Internal Medicine; Visit Provider Internal Medicine
DX: R69 Illness, unspecified (principal)

== ENCOUNTER 2019-06-30 16:08 | Inpatient (IN) | payer MEDICARE, SELFPAY ==
[2019-06-30 16:21] VITALS: BP 161/77; PULSE 67; RESP 16; TEMP 36.7; O2SAT 98; BMI 44.8
[2019-06-30 17:01] LABS: Bedside Glucose 174 mg/dL (70-110)
[2019-06-30 17:52] VITALS: BMI 44.8
[2019-06-30 19:09] VITALS: BP 122/52; PULSE 65; RESP 16; TEMP 36.6; O2SAT 98
[2019-06-30 21:31] LABS: Bedside Glucose 206 mg/dL (70-110)
[2019-06-30] MEDS: Menthol/Lanolin/Calamine/Znox 113 GM Tube 1 APPLIC TOPICAL (21:50)
[2019-06-30] MEDS: Heparin Injection 5,000 UNITS/ML Syringe 5000 UNITS SC (21:50)
[2019-06-30] MEDS: Insulin Lispro 100 UNIT/ML INSULN.PEN SC (21:50)
[2019-06-30] MEDS: Atorvastatin Calcium 10 MG Tablet PO (21:51)
[2019-06-30] MEDS: Cephalexin 500 MG Capsule PO (21:51)
[2019-06-30] MEDS: Nystatin Powder 15gm Bottle 1 APPLIC TOPICAL (21:51)
[2019-06-30] MEDS: Senna/Docusate Sodium 1 Tablet 2 TABLET PO (21:52)
[2019-06-30 22:00] VITALS: BMI 44.8
[2019-07-01 06:22] LABS: Absolute Lymphocyte Count 1.96 X10^3/uL (0.83-4.51); Absolute Neutrophil Count 5.9 X10^3/uL (2.0-7.7); Basophil# 0.02 X10^3/uL; Basophil% 0.2 % (0-1); Eosinophil# 0.22 X10^3/uL; Eosinophils% 2.5 % (0-5); Hematocrit 33.2 % (37-47); Hemoglobin 10.7 g/dL (12.0-15.0); Lymphocyte # 1.96 X10^3/ul (4.0); Lymphocyte % 22.2 % (19-41); Mean Corp Hgb Conc 32.2 g/dL (32-36); Mean Corpuscular Hgb 28.8 pg (27.0-32.0); Mean Corpuscular Volume 89.5 fL (81-99); Monocyte# 0.66 X10^3/uL; Monocyte% 7.5 % (0-10); NRBC Flagged by Analyzer 0 % (0-5); Neutrophil # 5.92 X10^3/uL (2.7-7.7); Neutrophil % 67.1 % (47-70); Platelet Count 306 K/mm3 (150-450); RBC Distribution Width CV 15.1 % (11.6-14.6); RBC Distribution Width SD 47.8 fl (35.1-43.9); Red Blood Count 3.71 M/mm3 (4.2-5.4); White Blood Count 8.8 K/mm3 (4.4-11.0)
[2019-07-01 06:31] LABS: Bedside Glucose 157 mg/dL (70-110)
[2019-07-01 06:44] LABS: ALB/GLOB Ratio 0.6 RATIO (0.9-2.4); AST(SGOT) 17 U/L (15-37); Alanine Aminotransfer ALT/SGPT 21 U/L (13-56); Albumin, Serum 2.6 g/dL (3.2-5.0); Alkaline Phosphatase 67 U/L (45-117); Anion Gap 8 (5-15); BUN 27 mg/dL (7-18); BUN/Creat Ratio 21.6 RATIO (10-20); Calcium,Total 9.1 mg/dL (8.5-10.1); Chloride 105 mmol/L (98-107); Creatinine, Serum 1.25 mg/dL (0.55-1.02); EST Glomerular Filtration Rate 44 mL/min (>60); Est Glom Filt Rate - Afr Amer 54 mL/min (>60); Estimated Creatinine Clearance 28.36 ml/min; Glucose 176 mg/dL (74-106); Magnesium 1.7 mg/dL (1.6-2.6); Phosphorus 3.3 mg/dL (2.5-4.9); Potassium 3.8 mmol/L (3.5-5.1); Protein, Total 6.6 g/dL (6.4-8.2); Sodium Level 139 mmol/L (136-145)
[2019-07-01 07:00] VITALS: BP 141/75; PULSE 64; RESP 16; TEMP 36.7; O2SAT 96
[2019-07-01 07:10] VITALS: O2SAT 100
[2019-07-01] MEDS: Atenolol 50 MG Tablet PO (07:55)
[2019-07-01] MEDS: Cephalexin 500 MG Capsule PO ×2 (07:56→19:46)
[2019-07-01] MEDS: Losartan Potassium 100 MG Tablet PO (07:56)
[2019-07-01] MEDS: LINAGLIPTIN 5 MG TABLET PO (07:56)
[2019-07-01] MEDS: Aspirin E.C. 325 MG Tablet PO (07:56)
[2019-07-01] MEDS: Insulin Lispro 100 UNIT/ML INSULN.PEN SC ×4 (07:56→21:40)
[2019-07-01] MEDS: Multivitamins,Therapeutic Tablet 1 TABLET PO (07:56)
[2019-07-01] MEDS: Heparin Injection 5,000 UNITS/ML Syringe 5000 UNITS SC ×2 (07:56→19:46)
[2019-07-01] MEDS: amLODIPine 10 MG Tablet PO (07:56)
[2019-07-01] MEDS: Menthol/Lanolin/Calamine/Znox 113 GM Tube 1 APPLIC TOPICAL ×2 (07:59→19:45)
[2019-07-01] MEDS: Nystatin Powder 15gm Bottle 1 APPLIC TOPICAL ×2 (08:00→19:47)
--- NOTE | 2019-07-01 10:01 | PCM.HP.STD ---
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 (6) BPPV (benign paroxysmal positional vertigo) Status: Chronic (7) CKD (chronic kidney disease), stage III Status: Chronic (8) Diabetes mellitus, type II Status: Chronic Qualifiers: Diabetes mellitus complication status: with neurologic complications Diabetes mellitus complication detail: with other neurological complication (9) Diabetic nephropathy Status: Chronic Qualifiers: Diabetes mellitus type: type 2 Qualified Code(s): E11.21 - Type 2 diabetes mellitus with diabetic nephropathy (10) GERD (gastroesophageal reflux disease) Status: Chronic Qualifiers: (11) Grade II diastolic dysfunction Status: Chronic (12) HLD (hyperlipidemia) Status: Chronic Qualifiers: (13) HTN (hypertension) Status: Chronic Qualifiers: (14) Left atrial enlargement Status: Chronic Comment: Mild (15) Morbid obesity with BMI of 40.0-44.9, adult Status: Chronic (16) Proteinuria Status: Chronic (17) Normochromic normocytic anemia Status: Acute History of Present Illness Date of Admission: 06/30/19 Chief Complaint: Debility post right cerebellar ischemic CVA and left MCA ischemic CVA with a aphasia, gait instability and right-sided weakness Tracey is a 73-year-old with a past medical history of hypertension, diabetes mellitus type 2, hyperlipidemia, morbid obesity, GERD, BPPV, chronic renal failure stage III, diastolic dysfunction stage II, mild left atrial enlargement and right cerebellar ischemic infarct who was originally admitted to the inpatient rehab unit at [facility] on 06/19/2019 for debility secondary to right cerebellar infarct. On 06/25/2019 she was very drowsy and less responsive at approximately 10 AM and had new onset of dysarthria and aphasia A stroke alert was called. A noncontrasted CT brain showed a new area of decreased attenuation in the right cerebellar hemisphere suggestive of acute infarction and edema. A CTA of the head and neck showed a luminal clot in the distal portion of the right vertebral artery just proximal to the basilar artery. She was not a candidate or TPA due to the recent R cerebellar infarct. [facility] tele-neurology was consulted and they recommended transfer to [facility] for close monitoring and availability of in-house neurology. MRI of the brain done at [facility] showed an acute left MCA ischemic CVA, most likely due to thrombosis. Aphasia improved while at [facility] but, she now has R side weakness arm>leg that was not present at the last admission to the inpt rehab unit. She ws readmitted to the [facility] on 06/30/19 for > 3 hours of therapy daily to return her at or near her prior level of independence with ADL's and driving. Past Medical History Past Medical History (Chronic Problems): Chronic Problems Occlusion of right vertebral artery (Chronic) BPPV (benign paroxysmal positional vertigo) (Chronic) Grade II diastolic dysfunction (Chronic) Left atrial enlargement (Chronic) Mild Proteinuria (Chronic) Diabetic nephropathy (Chronic) Diabetes mellitus, type II (Chronic) HTN (hypertension) (Chronic) HLD (hyperlipidemia) (Chronic) GERD (gastroesophageal reflux disease) (Chronic) Morbid obesity with BMI of 40.0-44.9, adult (Chronic) CKD (chronic kidney disease), stage III (Chronic) Allergies Sulfa (Sulfonamide Antibiotics) Allergy (Verified 06/16/19 17:13) Rash lisinopril Adverse Reaction (Verified 06/16/19 20:15) cough Home Medications: Ambulatory Orders Medication Instructions Recorded Amlodipine [Norvasc] 10 mg PO DAILY 09/07/16 Atenolol [Tenormin (beta christel)] 50 mg PO DAILY 09/07/16 glipiZIDE [Glucotrol] 5 mg PO BIDAC 09/07/16 Multivitamin [Multiple Vitamins] 1 each PO DAILY 09/08/16 glipiZIDE [Glucotrol] 10 mg PO LUNCH 09/08/16 Esomeprazole Magnesium [Nexium 20 mg PO QODAY 06/16/19 24Hr] Losartan Potassium 100 mg PO DAILY 06/16/19 Sitagliptin Phosphate [Januvia] 50 mg PO DAILY 06/16/19 Clopidogrel Bisulfate [Plavix] 75 mg PO DAILY 06/19/19 Aspirin [Aspirin EC] 325 mg PO DAILY 06/30/19 Atorvastatin Calcium [Lipitor] 10 mg PO QHS 06/30/19 Cephalexin [Keflex] 500 mg PO BID 06/30/19 Heparin Injection 5,000 units SUBCUT BID 06/30/19 Surgical History: - - Cataract surgery bilaterally. Psychiatric History: No pertinent psych hx BLAST SETTER History: No pertinent BLAST SETTER history, - - Smoking Status: Never smoker Tobacco Use: Non-smoker Alcohol: None Drugs: None - *Family History Maternal History Items: Diabetes, Heart Disease, Hypertension Paternal History Items: High Cholesterol Review of Systems Constitutional: Reports: Weakness - R side. Denies: Chills, Fever, Weight Change Eyes: Denies: Eyelid Inflammation, Vision Change HEENT: Reports: Dysphasia. Denies: Difficulty Hearing, Difficulty Swallowing, Head Aches, Nasal Congestion, Post Nasal Drip, Sinus Congestion, Sinus Drainage, Sore Throat Cardiovascular: Denies: Chest Pain, Edema, Light Headedness, Palpitations Respiratory: Reports: Shortness of breath upon exertion. Denies: Cough, Shortness of breath at rest, Sputum production Gastrointestinal: Denies: Abdominal Pain, Constipation, Diarrhea, Dyspepsia, Nausea, Vomiting Genitourinary: Denies: Dysuria Musculoskeletal: Denies: Joint Pain, Joint Tenderness Skin: Reports: Dryness. Denies: Jaundice, Rash, Wounds Neurological: Reports: Balance problems, Change in Speech, Slurred speech, Confusion - at times with complex questions, Focal weakness - R arm>R leg, -. Denies: Double vision, Headaches, Numbness, Tingling, Tremor, Seizures Psychiatric: Denies: Anxiety, Depression, Homicidal Ideations, Suicidal Ideations Endocrine: Denies: Change in Body Habitus, Hx of Thyroiditis Hematologic/ Lymphatic: Denies: Easy Bruising, Easy Bleeding, Hx of blood clot VTE Information - Inpt Only VTE Present on Admission: No VTE Mechan Device Prophylaxis: Knee High GIANCARLO Hose - or RAYNE wraps VTE Pharm Prophylaxis ordered?: Yes Patient Problems: Active and Suspected Problems Acute ischemic left middle cerebral artery (MCA) stroke (Acute) Cerebrovascular accident involving cerebellum (Acute) R cerebellum due to occlusion of the R vertebral artery Normochromic normocytic anemia (Acute) - Physical Exam Vitals/I&O's: Vital Signs Temp Pulse Resp BP Pulse Ox 98.0 F 64 16 141/75 H 100 07/01/19 07:00 07/01/19 07:00 07/01/19 07:00 07/01/19 07:00 07/01/19 07:10 Oxygen Delivery Method Room Air Weight: 229 lb 8.019 oz Body Mass Index (BMI) 44.8 Finger Stick Blood Glucose 206 Intake and Output for Last 24 Hours 06/29/19 06/30/19 07/01/19 23:59 23:59 23:59 Intake Total 440 / 440 120 / 120 Output Total 150 / 150 400 / 400 Balance 290 / 290 -280 / -280 General: Alert, Oriented x3, Cooperative, No apparent distress, Well developed, Well nourished HEENT: Atraumatic, PERRLA, EOMI, Normocephalic Oral: Moist Mucosa, No Gingival or Mucosal Lesions/ Ulcerations Neck: Supple, Negative Carotid Bruits, No Nodes, Trachea Midline Lungs: Clear to auscultation, No rhonchi, No wheeze, No rales, Diminished - in the bases, - - She is not tachypneic, She has no accessory muscle use and there is no conversational dyspnea. Speaking in short sentences and has some problem with word finding. Cardiovascular: Regular rate, Regular Rhythm, Normal S1, Normal S2, No murmurs, No Ectopic Activity, No rub noted, No Gallop Abdomen: Bowel Sounds Present, Soft, Non Tender, Non-Distended, Obese, - - No guarding with palpation Extremities: No clubbing, No cyanosis, No edema, No Calf Tenderness Skin: No rashes, No breakdown Musculoskeletal: No Muscle Wasting, Arthritic Changes Neurological: Cranial nerves II-XII grossly intact, - - She has expressive aphasia and also some difficulty with concierge receptionist. The R arm is weaker the the R leg. She has 5/5 strength on the left side. She is ataxic with the R arm and leg and this was prior to the stroke alert on 06/25/19. No loss of sensation. I did not detect any R side neglect. Psych/Mental Status: Normal Affect, Appropriate Laboratory Results 06/30/19 16:42: POC Glucose 174 H 06/30/19 21:24: POC Glucose 206 H 07/01/19 06:00: WBC 8.8, RBC 3.71 L, Hgb 10.7 L, Hct 33.2 L, MCV 89.5, MCH 28.8, MCHC 32.2, RDW Std Deviation 47.8 H, RDW Coeff of Umu 15.1 H, Plt Count 306, MPV 10.0, Immature Gran % (Auto) 0.500, Neut % (Auto) 67.1, Lymph % (Auto) 22.2, [place] % (Auto) 7.5, Eos % (Auto) 2.5, Baso % (Auto) 0.2, Absolute Neuts (auto) 5.9, Absolute Lymphs (auto) 1.96, Nucleated RBC % 0 07/01/19 06:00: Sodium 139, Potassium 3.8, Chloride 105, Carbon Dioxide 26.0, Anion Gap 8, BUN 27 H, Creatinine 1.25 H, Estim Creat Clear Calc 28.36, Est GFR (MDRD) Af Amer 54 L, Est GFR (MDRD) Non-Af 44 L, BUN/Creatinine Ratio 21.6 H, Glucose 176 H, Calcium 9.1, Phosphorus 3.3, Magnesium 1.7, Total Bilirubin 0.40, AST 17, ALT 21, Alkaline Phosphatase 67, Total Protein 6.6, Albumin 2.6 L, Globulin 4.0, Albumin/Globulin Ratio 0.6 L 07/01/19 06:21: POC Glucose 157 H Current Medications Acetaminophen (Tylenol) 650 mg PO Q6H PRN PRN PRN Reason: Pain Score 1-10/10 Amlodipine Besylate (Norvasc) 10 mg PO DAILY [facility] Last Admin: 07/01/19 07:56 Dose: 10 mg Documented by: Aspirin (Ecotrin) 325 mg PO DAILY@0800 [facility] Last Admin: 07/01/19 07:56 Dose: 325 mg Documented by: Atenolol (Tenormin (Beta Christel)) 50 mg PO DAILY [facility] Last Admin: 07/01/19 07:55 Dose: 50 mg Documented by: Atorvastatin Calcium (Lipitor) 10 mg PO QHS [facility] Last Admin: 06/30/19 21:51 Dose: 10 mg Documented by: Bisacodyl (Dulcolax) 10 mg RECTAL .PRN X 1 PRN PRN Reason: Constipation Calamine/Phenol (Calmoseptine Ointment) 1 applic TOPICAL BID [facility]; Protocol Last Admin: 07/01/19 07:59 Dose: 1 applicatio Documented by: Cephalexin (Keflex) 500 mg PO BID [facility] Stop: 07/05/19 22:00 Last Admin: 07/01/19 07:56 Dose: 500 mg Documented by: Dextrose (D50w Syringe) 0 gm IV X1 PRN; Protocol PRN Reason: Hypoglycemia Glucagon () 1 mg IM .X1 PRN PRN Reason: Hypoglycemia Heparin Sodium (Porcine) () 5,000 units SC BID [facility] Last Admin: 07/01/19 07:56 Dose: 5,000 units Documented by: Insulin Human Lispro (Humalog Kwikpen (Bkc)) 0 unit SC ACHS [facility]; Protocol Last Admin: 07/01/19 07:56 Dose: 1 u Documented by: Linagliptin (Tradjenta) 5 mg PO DAILY [facility] Last Admin: 07/01/19 07:56 Dose: 5 mg Documented by: Losartan Potassium (Cozaar) 100 mg PO DAILY [facility] Last Admin: 07/01/19 07:56 Dose: 100 mg Documented by: Magnesium Hydroxide (Milk Of Magnesia) 30 ml PO .PRN X 1 PRN PRN Reason: Constipation Multivitamins (Multivitamin) 1 tablet PO DAILY@0800 [facility] Last Admin: 07/01/19 07:56 Dose: 1 tablet Documented by: Nystatin (Mycostatin Powder) 1 applic TOPICAL BID [facility]; Protocol Last Admin: 07/01/19 08:00 Dose: 1 applicatio Documented by: Senna/Docusate Sodium (Senokot-S, Niya-Colace) 2 tablet PO BID [facility] Last Admin: 07/01/19 07:55 Dose: Not Given Documented by: Assessment/Plan All Active Problems Acute ischemic left middle cerebral artery (MCA) stroke (Acute) Cerebrovascular accident involving cerebellum (Acute) Normochromic normocytic anemia (Acute) Dysarthria (Acute) Aphasia (Acute) Impressions 1. Debility secondary to Left MCA ischemic infarct plus extension of R cerebellar infarct on 06/25/19 due to thrombosis - suspect embolic and suspect she has AF. No AF detected while an inpt at [facility] or at [facility]. Will need a 30day event monitor at [place]. [facility] also recommends a ALONDRA but, they are not currently being done at [facility] due to the COVID 19 pandemic unless it is needed emergently(to limit exposure of staff and patients). 2. HTN - maintain of the current medications. Goal is < 120/80. Adjust medications as needed to achieve this goal. 3. DM II - goal is HGBA1C less than 7. I am going to [place] the Metformin because her creat clearance is < 30 and her creat has been higher in the past and she is at risk for lactic acidosis. Will continue the Tradjenta and the SSI for now. Also start once daily Lantus. I am going to recommend to her that she follow up with Dr. Reno post DC to keep the HGBA1C 7 or less. 4. HLD - LDL is 29. Will continue the Atorvastatin at 40 mg daily 5. morbid obesity - goal is less than 25 BMI but, I think this is likely unrealistic. Will change the carb control diet back to calorie controlled to promote weight loss. Will also consult the airline managerial supervisor to work with her. 6. GERD 7. sleep disordered breathing - overnight trending pulse ox ordered. The Stop BANG score is at least 5 putting her at high risk for sleep apnea. Her neck circumference is 43.5 cm. she has HTN and her BMI is > 35. She has HTN and she often feels tired during the day. She lives alone and can not tell me if she snores or not. 8. mild LAE with suspected PAF with recent R cerebellar and L MCA infarcts due to thrombosis 9. UTI present at admission to the rehab unit. Continue Keflex until 07/05/19 10. Hx of BPPV 11. Stage II diastolic dysfunction 12. Intertrigo - restart Nystatin powder to the area of skin folds 13. this is now here second stroke in the past month and she now has increased debility due to this. She is at high risk for depression and will start Zoloft 14. Stage III chronic renal failure with a creatinine clearance less than 30. Continue Cozaar for renal protection. Recommend that she follow up with nephrology post DC PLAN PT for gait stability OT for ADL's ST for evaluation Analgesics as needed Bowel protocol Fall precautions Assess for Anxiety/Depression GI prophylaxis not necessary-patient denies nausea/vomiting/abdominal pain/reflux DVT prophylaxis with heparin 5000 units subcu every 12 hours Follow up with Dr. Aldrich 1 week post discharge, local neurology, Dr. Gagandeep Watson Jr. on November 17, 2019 at 11:40 AM, [facility] to schedule transesophageal echocardiogram Following DC from IP Rehab Start Amaryl in the AM 2 mg. Dc the SSI when all the blood sugars are less than 180 Arrange 30-day event monitor for the day of discharge. Follow the I&O and the Creat closely....she went into ARF on the last admission due to dehydration due to poor fluid intake. Recheck lab on Sunday Treatment goals: Blood pressure less than 120/80 LDL less than 70 BMI less than 25 Hemoglobin A1c less than 7. I would like to achieve this with diet and oral meds if possible. Inpatient E&M: 65791 Init Hosp L3
[2019-07-01 11:41] LABS: Bedside Glucose 180 mg/dL (70-110)
--- NOTE | 2019-07-01 13:27 | PCM.RU.PYE ---
Admission Information Primary Diagnosis:: Debility secondary to recent extension of right cerebellar ischemic infarct and new left MCA ischemic infarct secondary to thrombosis Status Changes from Prescreening?: No changes Identified Actual Problem List:: Infection, UTI, Skin Intergrity, Cognitve Impr/Memory Loss, Depression, Mobility Impaired, Self Care Deficit, Ineffective Communication, Diabetes, Hyperglycemia, BP, Hypertension, Alteration-Leisure Activ. Potential Problem List:: DVT, Bleeding, Infection, UTI, Aspiration, Falls, Skin Integrity, Depression Risk of Complications DVT: LMWH, GIANCARLO Hose, Sequential Compression Device Bleeding: Monitor Lab Values, Nursing to Teach Precautions for anti-coagulation therapy., Wound, if applicable, to be assessed every shift., Stroke patients assessed for lethargy or change in status. Infection: Clinical Staff to Monitor for S/S of infection:, S/S of infection include fever, redness, warmth, etc. Urinary Tract Infection: Monitor for frequency, burning, discomfort, or incontinence., Nursing will obtain urine sample for urinalysis and C&S when ordered. Aspiration: Clinical staff will monitor for coughing, drooling, congestion., Speech will evaluate swallowing and dsyphasia., Nursing will monitor patient swallowing during meals. Falls: Patient will be evaluated for Fall Precautions, Patient will be placed on Fall Precautions as indicated per protocol. Skin Breakdown: Nursing will assess skin daily using assessment tool., Nursing will place on Skin Breakdown Precautions as indicated. Pain: Clinical staff will assess patient's pain level per protocol., Medications will be given, if needed, and the pain level reassessed., Other methods: Massage, distraction, decrease stimulus, etc. used PRN. Plan of Care Patient requires physician specializing in physical medicine and rehab oversight to provide close medical supervision of rehab issues including: Pain Management, Sleep Problems, Bowel and Bladder, Medical and co-morbidity Management, DVT prophylaxis, Rehabilitation Leadership, Coordination of treatment team Patient needs Physical Therapy: For a minimum of 1 hour, At least 5 out of 7 days Patient needs Physical Therapy to improve:: Mobility, Mobility, Mobility, Strengthening, Transfers, Stretching, ROM, Endurance, Stairs, Gait, Balance Patient needs Occupational Therapy: For a minimum of 1 hour, At least 5 out of 7 days Patient needs Occupational Therapy to improve ADL's incl.: Eating, Grooming, Bathing, Dressing, Toileting, Toilet transfers, Community Reintegration, Higher functioning activities, Household tasks, Adaptive Equipment, Splinting, Other activities as determined Patient requires speech therapy: For a minimum of 1 hour, At least 5 out of 7 days Patient requires speech therapy for: Swallowing, Cognition, Language Skills, Compensatory Strategies Patient requires 24/7 Rehabilitation Nursing for: Pain Issues, Identifying and preventing risk factors, Monitoring and reporting current medical conditions, Assisting with ambulation, transfer, and all ADL's, Teaching patients about disease process and medications, Family teaching, Providing safe environment, Bowel and Bladder Issues, Skin integrity, Medication Management Patient needs [employer] Team Member/ Case Management for: Discharge Planning, Arranging Home Equipment or Services, Family Interventions Patient needs Dietary and Nutrition Services for: Adequate Nutrition, Nutritional Supplements, Nutritional Education Goals Patient will remain: free from falls, or injury at time of discharge. Patient will perform bed mobility at: MOD I level of assist. Patient will complete transfers from bed to chair at: MOD I level of assist. Patient will ambulate: 100 feet, with MOD I assist, with LRD Patient will complete upper body dressing at: MOD I level of assist. Patient will complete lower body dressing at: MOD I level of assist. Patient will complete toileting at: MOD I level of assist. Patient will perform bathing at: MOD I level of assist. Patient will complete grooming at: MOD I level of assist. Patient will complete home management skills at: MOD I level of assist. Patient will achieve: 12 stairs, at MOD I assist Patient will have pain level of: of 3 or less Patient's skin will: remain intact, free from infection. Patient will receive: adequate nutrition. Discharge Planning Pt Prognosis for Sig. Practical Improv. w/in Reasonable Time: Good Estimated Length of stay (days): 21 Anticipated D/C Destination: Home with Home Health Was Preadmission Assessment Accurate?: Yes
[2019-07-01 15:13] VITALS: BMI 44.8
[2019-07-01 17:10] LABS: Bedside Glucose 162 mg/dL (70-110)
[2019-07-01 19:20] VITALS: BP 151/75; PULSE 58; RESP 16; TEMP 36.8; O2SAT 99
[2019-07-01 19:37] VITALS: BP 151/75; PULSE 58; RESP 16; TEMP 37; O2SAT 99
[2019-07-01 19:41] VITALS: BMI 44.8
[2019-07-01] MEDS: Atorvastatin Calcium 40 MG Tablet PO (19:46)
[2019-07-01 22:16] LABS: Bedside Glucose 164 mg/dL (70-110)
[2019-07-01 23:30] VITALS: PULSE 79; O2SAT 98
[2019-07-02 06:45] LABS: Bedside Glucose 149 mg/dL (70-110)
[2019-07-02 07:17] VITALS: O2SAT 98
[2019-07-02 08:01] VITALS: BP 120/58; PULSE 60; RESP 16; TEMP 36.4; O2SAT 99
[2019-07-02] MEDS: Menthol/Lanolin/Calamine/Znox 113 GM Tube 1 APPLIC TOPICAL ×2 (09:11→20:57)
[2019-07-02] MEDS: Aspirin E.C. 325 MG Tablet PO (09:11)
[2019-07-02] MEDS: Multivitamins,Therapeutic Tablet 1 TABLET PO (09:11)
[2019-07-02] MEDS: Glimepiride 2 MG Tablet PO (09:11)
[2019-07-02] MEDS: Losartan Potassium 100 MG Tablet PO (09:12)
[2019-07-02] MEDS: Heparin Injection 5,000 UNITS/ML Syringe 5000 UNITS SC ×2 (09:12→21:00)
[2019-07-02] MEDS: Nystatin Powder 15gm Bottle 1 APPLIC TOPICAL ×2 (09:12→21:00)
[2019-07-02] MEDS: Cephalexin 500 MG Capsule PO ×2 (09:12→21:00)
[2019-07-02] MEDS: Sertraline 50 MG Tablet PO (09:13)
[2019-07-02] MEDS: amLODIPine 10 MG Tablet PO (09:13)
[2019-07-02] MEDS: LINAGLIPTIN 5 MG TABLET PO (09:13)
[2019-07-02] MEDS: Atenolol 50 MG Tablet PO (09:13)
--- NOTE | 2019-07-02 10:26 | PCM.PN.BLA ---
Progress Note Afebrile Blood pressure this a.m. is 120/58. Blood pressures prior to this morning showed mild systolic hypertension. She is maintaining adequate oxygen saturation on room air while awake. PT/OT/ST notes were reviewed. Review of the overnight trending pulse ox shows that she had 14 desaturations totaling 7 minutes and 2 sec. At 1:52 she desaturated to 67% for 1 minutes and 52 sec. The blood sugar record was reviewed. Blood sugars are well controlled. She was started on Lantus 10 units nightly on 07/01/2019 and her fasting blood sugar this morning was 149. She is also on Amaryl and Tradjenta. We will continue to monitor blood sugars before meals and at bedtime. Cortney denies knee pain today. She also has no cough, no shortness of breath, no fever and a normal WBC and diff. Alert, appropriate, oriented x3 Lungs-clear to auscultation but diminished especially in the bases Heart-regular rate and rhythm, no murmur, no gallop Abdomen-soft, nontender, nondistended, no guarding with palpation, bowel sounds present No significant peripheral edema No significant change in neurological exam from yesterday. No visual dietz loss. Still with Aphasia, mostly expressive but, the dysarthria is somewhat better today and she is very conscious of enunciating Impressions 1. Post stroke debility with R side weakness, expressive aphasia, dysarthria, mild dysphagia but ST approved for thin liquids and regular textures and the pt is good about small bites and sips and alternate sips and bites 2. DM II - well controlled. Glucophage discontinued because of renal failure. Currently on Lantus 10 units at bedtime, Amaryl 2 mg every morning and Tradjenta 5 mg daily. 3. Hypertension-blood pressures were initially mildly elevated at admission but seem to be calming down. We will continue to monitor. Goal for the blood pressure ultimately is less than 120/80. 4. Chronic renal failure stage III with acute renal failure on recent admission secondary to dehydration. We will continue to encourage Cortney to increase her fluid intake. Speech therapy, Occupational Therapy and physical therapy are all having her drink a glass of water after they are finished with her. 5. Sleep disordered breathing with desaturation to 67% last night. Stop bang score puts her at high risk for SOPHIE. Will need a sleep study at discharge. STROKE Vital Signs/Narrative: Vital Signs Temp Pulse Resp BP Pulse Ox 07/02/19 08:01 97.6 F L 60 16 120/58 L 99 07/02/19 07:17 98 Inpatient E&M: 39712 Subs Hosp L2
[2019-07-02 11:45] LABS: Bedside Glucose 192 mg/dL (70-110)
[2019-07-02] MEDS: Insulin Lispro 100 UNIT/ML INSULN.PEN SC (12:15)
[2019-07-02 16:35] VITALS: BMI 44.8
[2019-07-02 16:46] LABS: Bedside Glucose 130 mg/dL (70-110)
[2019-07-02 20:55] VITALS: BMI 44.8
[2019-07-02 21:00] VITALS: BP 130/51; PULSE 58; RESP 16; TEMP 36.4; O2SAT 95
[2019-07-02] MEDS: Atorvastatin Calcium 40 MG Tablet PO (21:00)
[2019-07-02 21:05] VITALS: RESP 16; O2SAT 95
[2019-07-02 21:31] LABS: Bedside Glucose 101 mg/dL (70-110)
[2019-07-03 07:48] LABS: Bedside Glucose 89 mg/dL (70-110)
--- NOTE | 2019-07-03 09:54 | CASEMGMT ---
Social Work IDT met with pt and pt sister via conference call for Team meeting. Pt min assist for sit to stand and transferring at min-mod assist. Pt is walking 10-20 ft with FWW and no w/c follow and is mod assist for steadying. Pt has not competed steps yet. Pt is min assist with shower transfer and is mod assist for bathing. Pt is mod-max assist for LE ADLS and pt sits set-up supervised for UE grooming. Pt is min assist for EU dressing and max assist for LE dressing. Pt to working on balance and coordination and strengthening right arm. Pt is working on word finding, strengthening speech muscles and has had progress in clearer speech. Pt is on regular diet with thin liquids and is alternating small sips and bites at distant supervision. Pt is sleeping well and complains of no pain. O2 is dropping at night to 62 and Physician is recommending sleep study upon DC. Explained insurance to pt, NRD 07/01. SW/SWI to coordinate DC plans and equipment needs. Alesha Rincon, social work project intern Keren Rivera, ROOFING LAYER CIRCUIT BREAKER ASSEMBLER
[2019-07-03 09:56] VITALS: BP 134/70; PULSE 67; RESP 16; TEMP 36.4; O2SAT 100
[2019-07-03] MEDS: Losartan Potassium 100 MG Tablet PO (10:01)
[2019-07-03] MEDS: LINAGLIPTIN 5 MG TABLET PO (10:01)
[2019-07-03] MEDS: Sertraline 50 MG Tablet PO (10:01)
[2019-07-03] MEDS: Multivitamins,Therapeutic Tablet 1 TABLET PO (10:01)
[2019-07-03] MEDS: amLODIPine 10 MG Tablet PO (10:01)
[2019-07-03] MEDS: Cephalexin 500 MG Capsule PO ×2 (10:01→21:22)
[2019-07-03] MEDS: Atenolol 50 MG Tablet PO (10:01)
[2019-07-03] MEDS: Aspirin E.C. 325 MG Tablet PO (10:02)
[2019-07-03] MEDS: Glimepiride 2 MG Tablet PO (10:02)
[2019-07-03] MEDS: Heparin Injection 5,000 UNITS/ML Syringe 5000 UNITS SC ×2 (10:02→21:22)
[2019-07-03] MEDS: Nystatin Powder 15gm Bottle 1 APPLIC TOPICAL ×2 (10:07→21:22)
[2019-07-03] MEDS: Menthol/Lanolin/Calamine/Znox 113 GM Tube 1 APPLIC TOPICAL ×2 (10:07→21:21)
[2019-07-03] MEDS: Insulin Lispro 100 UNIT/ML INSULN.PEN SC ×2 (12:12→21:22)
[2019-07-03 12:21] LABS: Bedside Glucose 195 mg/dL (70-110)
--- NOTE | 2019-07-03 15:29 | PCM.PN.BLA ---
Progress Note Cortney was seen on team rounds today. Her Sister Norah was on conference call/speaker. Afebile VSS-blood pressures are within normal limits but not at goal yet. Will tolerate mild increase in blood pressure currently and next week being more aggressive with blood pressure management and getting the blood pressure less than 120/80. Maintaining appropriate oxygen saturation on RA Oral intake is good. Good bowel function Discussed with nursing - no problems that need addressed Reviewed the PT/OT/ST notes Medication list reviewed. Blood sugar record was reviewed. The fasting blood sugar was low at 89 today and the at bedtime sugar last night was 101. Will decrease the Amaryl to 1 mg daily. Continue Tradjenta. We elected not to start Lantus but continue with oral medications to see if the blood sugars could be controlled that way. Continue to monitor blood sugars before meals and at bedtime. Alert, appropriate, participating in the conversation. Lungs-clear to auscultation with diminished breath sounds especially in the bases. No wheezes, rhonchi or rales. No conversational dyspnea. No accessory muscle use. Not tachypneic. Heart-regular rate and rhythm with occasional ectopic. Abdomen-obese, soft, nontender, bowel sounds heard No significant peripheral edema Impressions 1. 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 Suspect the patient has atrial fibrillation. She only has mild left atrial enlargement however I suspect that she has significant SOPHIE and this is associated with paroxysmal atrial fibrillation. No anticoagulation at this time since it has not been shown that she has atrial fibrillation. Will need a 30-day event monitor at discharge and follow-up with [facility] for transesophageal echocardiogram once nonessential cardiac procedures are being done again. 2. Diabetes mellitus type 2. Fasting blood sugar was less than 100 today. Amaryl has been decreased 1 mg daily. Would like to keep all blood sugars less than 180 and greater than 100. Goal hemoglobin A1c is 7. 3. Hypertension-allow 5 or 6 more days of mild systolic elevation but next week will endeavor to keep the blood pressure less than 120/80. 4. Obesity - continue to encourage weight loss. If she is ever in AF when I examine her will get a stat EKG. Inpatient E&M: 56776 Subs Hosp L2
[2019-07-03 17:00] VITALS: BMI 44.8
[2019-07-03 17:01] LABS: Bedside Glucose 127 mg/dL (70-110)
[2019-07-03 20:12] VITALS: BMI 44.8
[2019-07-03 20:41] LABS: Bedside Glucose 173 mg/dL (70-110)
[2019-07-03] MEDS: Atorvastatin Calcium 40 MG Tablet PO (21:22)
[2019-07-03 22:00] VITALS: BP 120/60; PULSE 56; RESP 16; TEMP 36.6; O2SAT 100
[2019-07-04 06:25] LABS: Bedside Glucose 122 mg/dL (70-110)
[2019-07-04 06:52] LABS: Anion Gap 8 (5-15); BUN 26 mg/dL (7-18); BUN/Creat Ratio 20.5 RATIO (10-20); Calcium,Total 9.2 mg/dL (8.5-10.1); Chloride 105 mmol/L (98-107); Creatinine, Serum 1.27 mg/dL (0.55-1.02); EST Glomerular Filtration Rate 44 mL/min (>60); Est Glom Filt Rate - Afr Amer 53 mL/min (>60); Estimated Creatinine Clearance 27.92 ml/min; Glucose 121 mg/dL (74-106); Magnesium 1.7 mg/dL (1.6-2.6); Sodium Level 138 mmol/L (136-145)
[2019-07-04 08:15] VITALS: BP 139/67; PULSE 64; RESP 18; TEMP 36.6; O2SAT 98
[2019-07-04] MEDS: Glimepiride 2 MG Tablet 1 MG PO (10:05)
[2019-07-04] MEDS: Sertraline 50 MG Tablet PO (10:06)
[2019-07-04] MEDS: Multivitamins,Therapeutic Tablet 1 TABLET PO (10:06)
[2019-07-04] MEDS: Aspirin E.C. 325 MG Tablet PO (10:06)
[2019-07-04] MEDS: LINAGLIPTIN 5 MG TABLET PO (10:07)
[2019-07-04] MEDS: Cephalexin 500 MG Capsule PO ×2 (10:07→20:31)
[2019-07-04] MEDS: Senna/Docusate Sodium 1 Tablet 2 TABLET PO ×2 (10:07→20:30)
[2019-07-04] MEDS: Atenolol 50 MG Tablet PO (10:07)
[2019-07-04] MEDS: Losartan Potassium 100 MG Tablet PO (10:08)
[2019-07-04] MEDS: Menthol/Lanolin/Calamine/Znox 113 GM Tube 1 APPLIC TOPICAL ×2 (10:08→20:31)
[2019-07-04] MEDS: Heparin Injection 5,000 UNITS/ML Syringe 5000 UNITS SC ×2 (10:08→20:31)
[2019-07-04] MEDS: Nystatin Powder 15gm Bottle 1 APPLIC TOPICAL ×2 (10:10→20:30)
[2019-07-04] MEDS: amLODIPine 10 MG Tablet PO (10:20)
[2019-07-04 11:15] LABS: Bedside Glucose 148 mg/dL (70-110)
--- NOTE | 2019-07-04 12:52 | PCM.PN.BLA ---
Progress Note Afebile VSS Maintaining appropriate oxygen saturation on RA Oral intake is fair to good Discussed with nursing - no problems that need addressed Reviewed the PT/OT/ST notes Medication list reviewed. Blood sugar record was reviewed. Blood sugars are under excellent control. No hypoglycemia. Amaryl was decreased to 1 mg daily yesterday because of a fasting of 89 All lab work was personally reviewed. Creatinine is stable at 1.7 with a BUN of 26. Potassium is 4.0 and the sodium is 138. Alert, appropriate, oriented x3 Lungs-clear to auscultation Heart-regular rate and rhythm Abdomen-soft, nontender, bowel sounds heard in all quadrants No ankle edema No change in neurological exam Impressions 1. Post stroke debility 2. Diabetes mellitus type 0-erqg-[id number] 3. Hypertension-allowing mild systolic hypertension this week but will endeavor to get the blood pressure less than 120/80 next week 4. Stage III chronic renal failure-creatinine stable Continue therapy Continue current medications Renew Duricef...stop date is 07/05/19 Inpatient E&M: 58074 [facility] Hosp L1
[2019-07-04 16:15] VITALS: BMI 44.8
[2019-07-04 16:45] LABS: Bedside Glucose 144 mg/dL (70-110)
[2019-07-04 19:10] VITALS: BP 117/60; PULSE 61; RESP 16; TEMP 36.6; O2SAT 99
[2019-07-04] MEDS: Atorvastatin Calcium 40 MG Tablet PO (20:31)
[2019-07-04 21:26] LABS: Bedside Glucose 143 mg/dL (70-110)
[2019-07-05 05:00] VITALS: BMI 44.8
[2019-07-05 06:36] LABS: Bedside Glucose 113 mg/dL (70-110)
[2019-07-05 07:00] VITALS: BP 126/63; PULSE 60; RESP 12; TEMP 36.4; O2SAT 97
[2019-07-05] MEDS: Heparin Injection 5,000 UNITS/ML Syringe 5000 UNITS SC ×2 (08:13→20:24)
[2019-07-05] MEDS: Glimepiride 2 MG Tablet 1 MG PO (08:13)
[2019-07-05] MEDS: Aspirin E.C. 325 MG Tablet PO (08:13)
[2019-07-05] MEDS: LINAGLIPTIN 5 MG TABLET PO (08:13)
[2019-07-05] MEDS: Losartan Potassium 100 MG Tablet PO (08:13)
[2019-07-05] MEDS: Multivitamins,Therapeutic Tablet 1 TABLET PO (08:13)
[2019-07-05] MEDS: Atenolol 50 MG Tablet PO (08:13)
[2019-07-05] MEDS: amLODIPine 10 MG Tablet PO (08:13)
[2019-07-05] MEDS: Sertraline 50 MG Tablet PO (08:13)
[2019-07-05] MEDS: Menthol/Lanolin/Calamine/Znox 113 GM Tube 1 APPLIC TOPICAL ×2 (08:17→20:37)
[2019-07-05] MEDS: Nystatin Powder 15gm Bottle 1 APPLIC TOPICAL ×2 (08:17→20:37)
[2019-07-05] MEDS: Cephalexin 500 MG Capsule PO ×2 (08:19→20:24)
[2019-07-05 11:55] LABS: Bedside Glucose 131 mg/dL (70-110)
[2019-07-05 15:00] VITALS: BMI 44.8
[2019-07-05 16:56] LABS: Bedside Glucose 124 mg/dL (70-110)
[2019-07-05 18:56] VITALS: BP 125/50; PULSE 60; RESP 16; TEMP 36.5; O2SAT 98
[2019-07-05] MEDS: Atorvastatin Calcium 40 MG Tablet PO (20:25)
[2019-07-05 20:29] VITALS: BMI 44.8
[2019-07-05 21:01] LABS: Bedside Glucose 124 mg/dL (70-110)
[2019-07-06 06:26] VITALS: BP 125/61; PULSE 73; RESP 16; TEMP 36.6; O2SAT 93
[2019-07-06 06:31] LABS: Bedside Glucose 158 mg/dL (70-110)
[2019-07-06] MEDS: Glimepiride 2 MG Tablet 1 MG PO (08:25)
[2019-07-06] MEDS: Losartan Potassium 100 MG Tablet PO (08:25)
[2019-07-06] MEDS: Multivitamins,Therapeutic Tablet 1 TABLET PO (08:25)
[2019-07-06] MEDS: Heparin Injection 5,000 UNITS/ML Syringe 5000 UNITS SC ×2 (08:26→20:18)
[2019-07-06] MEDS: Atenolol 50 MG Tablet PO (08:26)
[2019-07-06] MEDS: Aspirin E.C. 325 MG Tablet PO (08:26)
[2019-07-06] MEDS: LINAGLIPTIN 5 MG TABLET PO (08:26)
[2019-07-06] MEDS: amLODIPine 10 MG Tablet PO (08:26)
[2019-07-06] MEDS: Sertraline 50 MG Tablet PO (08:26)
[2019-07-06] MEDS: Nystatin Powder 15gm Bottle 1 APPLIC TOPICAL ×2 (08:27→20:19)
[2019-07-06] MEDS: Menthol/Lanolin/Calamine/Znox 113 GM Tube 1 APPLIC TOPICAL ×2 (08:27→20:19)
[2019-07-06] MEDS: Insulin Lispro 100 UNIT/ML INSULN.PEN SC (08:27)
[2019-07-06 11:55] LABS: Bedside Glucose 143 mg/dL (70-110)
[2019-07-06 13:36] VITALS: BMI 44.8
[2019-07-06 16:55] LABS: Bedside Glucose 129 mg/dL (70-110)
[2019-07-06 19:39] VITALS: BP 107/47; PULSE 61; RESP 16; TEMP 36.8; O2SAT 98
[2019-07-06] MEDS: Atorvastatin Calcium 40 MG Tablet PO (20:18)
[2019-07-06 20:28] VITALS: BMI 44.8
[2019-07-06 20:56] LABS: Bedside Glucose 145 mg/dL (70-110)
[2019-07-07 06:15] VITALS: BP 124/58; PULSE 62; RESP 16; TEMP 36.4; O2SAT 99
[2019-07-07 06:15] LABS: Bedside Glucose 107 mg/dL (70-110)
[2019-07-07] MEDS: Aspirin E.C. 325 MG Tablet PO (08:20)
[2019-07-07] MEDS: Heparin Injection 5,000 UNITS/ML Syringe 5000 UNITS SC ×2 (08:20→20:55)
[2019-07-07] MEDS: Glimepiride 2 MG Tablet 1 MG PO (08:20)
[2019-07-07] MEDS: amLODIPine 10 MG Tablet PO (08:20)
[2019-07-07] MEDS: Losartan Potassium 100 MG Tablet PO (08:20)
[2019-07-07] MEDS: Multivitamins,Therapeutic Tablet 1 TABLET PO (08:20)
[2019-07-07] MEDS: Nystatin Powder 15gm Bottle 1 APPLIC TOPICAL ×2 (08:21→21:00)
[2019-07-07] MEDS: Sertraline 50 MG Tablet PO (08:21)
[2019-07-07] MEDS: LINAGLIPTIN 5 MG TABLET PO (08:21)
[2019-07-07] MEDS: Atenolol 50 MG Tablet PO (08:21)
[2019-07-07] MEDS: Menthol/Lanolin/Calamine/Znox 113 GM Tube 1 APPLIC TOPICAL ×2 (08:21→20:56)
--- NOTE | 2019-07-07 11:02 | PCM.PN.BLA ---
Progress Note Afebile VSS-blood pressure is in better control but the systolic is still > 120. the diastolic is at goal. Neurology wants the BP < 120/80 Maintaining appropriate oxygen saturation on RA Oral intake is improved over the past 2 days Discussed with nursing - no problems that need addressed Reviewed the PT/OT/ST notes Medication list reviewed. Blood sugar record was reviewed. All blood sugars are under excellent control. Poly states that she feels more alert during the day and more rested when she wakes up in the a.m. since oxygen has been utilized while she is sleeping. She has no complaints today. She is tolerating the sertraline with no nausea, vomiting, abdominal pain, dyspepsia. She has no cough, shortness of breath or chest pain. She denies sore throat. Alert, appropriate, smiling and seems more upbeat and alert Lungs-clear to auscultation, diminished in the bases Heart-regular rate and rhythm, no gallop Abdomen-obese, soft, nontender, normal bowel sounds, no guarding with palpation Skin is warm and dry with no rashes or breakdown She is now doing steps with PT/OT and she is doing well in therapy. Impressions 1. Post stroke debility 2. 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 She also has a few areas in the left cerebellum that have been affected. No major blood vessel occlusion in the head or neck. There was a clot in the right vertebral artery at the time of the second stroke. 3. Sleep disordered breathing with a high stop bang score and hypoxemia at night with the oxygen saturation dropping to 67% at 1 point. Will need a sleep study at discharge 4. Hypertension-good control 5. Diabetes mellitus type 2-excellent control 6. UTI - resolved. finished an appropriate course of antibiotics Discussed with the team whether they thought that going home at [place] was a possibility and the general consensus seems to be yes, with distant supervision. Will continue therapy and work toward that goal Inpatient E&M: 77442 Subs Hosp L2
[2019-07-07 11:05] LABS: Bedside Glucose 150 mg/dL (70-110)
[2019-07-07] MEDS: Insulin Lispro 100 UNIT/ML INSULN.PEN SC ×2 (12:04→17:39)
[2019-07-07 14:32] VITALS: BMI 44.8
[2019-07-07 17:15] LABS: Bedside Glucose 154 mg/dL (70-110)
[2019-07-07 18:44] VITALS: BP 143/69; PULSE 58; RESP 16; TEMP 36.8; O2SAT 99
[2019-07-07] MEDS: Atorvastatin Calcium 40 MG Tablet PO (20:55)
[2019-07-07] MEDS: Senna/Docusate Sodium 1 Tablet 2 TABLET PO (20:55)
[2019-07-07 21:01] LABS: Bedside Glucose 143 mg/dL (70-110)
[2019-07-07 21:12] VITALS: BMI 44.8
[2019-07-07 22:00] VITALS: RESP 16
[2019-07-08 06:55] LABS: Bedside Glucose 114 mg/dL (70-110)
[2019-07-08] MEDS: Atenolol 50 MG Tablet PO (07:53)
[2019-07-08] MEDS: Senna/Docusate Sodium 1 Tablet 2 TABLET PO ×2 (07:53→21:34)
[2019-07-08] MEDS: Sertraline 50 MG Tablet PO (07:53)
[2019-07-08] MEDS: Losartan Potassium 100 MG Tablet PO (07:53)
[2019-07-08] MEDS: amLODIPine 10 MG Tablet PO (07:53)
[2019-07-08] MEDS: Aspirin E.C. 325 MG Tablet PO (07:53)
[2019-07-08] MEDS: Multivitamins,Therapeutic Tablet 1 TABLET PO (07:53)
[2019-07-08] MEDS: LINAGLIPTIN 5 MG TABLET PO (07:53)
[2019-07-08] MEDS: Glimepiride 2 MG Tablet 1 MG PO (07:53)
[2019-07-08] MEDS: Heparin Injection 5,000 UNITS/ML Syringe 5000 UNITS SC ×2 (07:54→21:34)
[2019-07-08] MEDS: Nystatin Powder 15gm Bottle 1 APPLIC TOPICAL ×2 (07:58→21:34)
[2019-07-08] MEDS: Menthol/Lanolin/Calamine/Znox 113 GM Tube 1 APPLIC TOPICAL ×2 (07:58→21:34)
[2019-07-08 09:05] VITALS: BP 135/61; PULSE 60; RESP 16; TEMP 36.7; O2SAT 99
[2019-07-08 12:16] LABS: Bedside Glucose 131 mg/dL (70-110)
[2019-07-08 15:37] VITALS: BMI 44.8
[2019-07-08 17:30] LABS: Bedside Glucose 111 mg/dL (70-110)
[2019-07-08 20:46] LABS: Bedside Glucose 145 mg/dL (70-110)
[2019-07-08 20:53] VITALS: BP 134/55; PULSE 57; RESP 16; TEMP 36.6; O2SAT 95
[2019-07-08 21:10] VITALS: O2SAT 99
[2019-07-08 21:25] VITALS: BMI 44.8
[2019-07-08] MEDS: Atorvastatin Calcium 40 MG Tablet PO (21:34)
[2019-07-09 06:14] VITALS: O2SAT 97
[2019-07-09 06:42] LABS: Hematocrit 30.7 % (37-47); Hemoglobin 9.9 g/dL (12.0-15.0); Mean Corp Hgb Conc 32.2 g/dL (32-36); Mean Corpuscular Hgb 28.2 pg (27.0-32.0); Mean Corpuscular Volume 87.5 fL (81-99); Mean Platelet Vol. 10.4 fl (6.2-12.0); Platelet Count 228 K/mm3 (150-450); RBC Distribution Width CV 15.5 % (11.6-14.6); RBC Distribution Width SD 48.7 fl (35.1-43.9); Red Blood Count 3.51 M/mm3 (4.2-5.4)
[2019-07-09 06:55] LABS: Anion Gap 3 (5-15); BUN 30 mg/dL (7-18); BUN/Creat Ratio 24.6 RATIO (10-20); Calcium,Total 9.6 mg/dL (8.5-10.1); Chloride 109 mmol/L (98-107); Creatinine, Serum 1.22 mg/dL (0.55-1.02); EST Glomerular Filtration Rate 46 mL/min (>60); Est Glom Filt Rate - Afr Amer 55 mL/min (>60); Estimated Creatinine Clearance 29.06 ml/min; Glucose 118 mg/dL (74-106); Magnesium 1.8 mg/dL (1.6-2.6); Potassium 4.2 mmol/L (3.5-5.1); Sodium Level 138 mmol/L (136-145)
[2019-07-09 06:55] LABS: Bedside Glucose 120 mg/dL (70-110)
[2019-07-09] MEDS: Multivitamins,Therapeutic Tablet 1 TABLET PO (07:30)
[2019-07-09] MEDS: Glimepiride 2 MG Tablet 1 MG PO (07:30)
[2019-07-09] MEDS: Losartan Potassium 100 MG Tablet PO (07:30)
[2019-07-09] MEDS: Heparin Injection 5,000 UNITS/ML Syringe 5000 UNITS SC ×2 (07:30→20:27)
[2019-07-09] MEDS: amLODIPine 10 MG Tablet PO (07:30)
[2019-07-09] MEDS: Aspirin E.C. 325 MG Tablet PO (07:30)
[2019-07-09] MEDS: Menthol/Lanolin/Calamine/Znox 113 GM Tube 1 APPLIC TOPICAL ×2 (07:31→20:27)
[2019-07-09] MEDS: Sertraline 50 MG Tablet PO (07:31)
[2019-07-09] MEDS: Senna/Docusate Sodium 1 Tablet 2 TABLET PO (07:31)
[2019-07-09] MEDS: Atenolol 50 MG Tablet PO (07:31)
[2019-07-09] MEDS: LINAGLIPTIN 5 MG TABLET PO (07:31)
[2019-07-09] MEDS: Nystatin Powder 15gm Bottle 1 APPLIC TOPICAL ×2 (07:32→20:28)
[2019-07-09 08:12] VITALS: BP 132/60; PULSE 60; RESP 18; TEMP 36.6; O2SAT 95
[2019-07-09 08:43] VITALS: BMI 44.8
[2019-07-09 11:25] LABS: Bedside Glucose 143 mg/dL (70-110)
[2019-07-09] MEDS: Magnesium Hydroxide 30 ML UDC PO (12:38)
--- NOTE | 2019-07-09 13:43 | PN_ITS ---
Progress Note Afebrile Blood pressure for the past 2 days has ranged from 124/58-143/69. The goal set for her by neurology at [facility] is less than 120/80. She is currently on atenolol 50 mg daily, amlodipine 10 mg daily and losartan 100 mg daily for BP control. I do not feel we can increase the Atenolol any higher since the HR is in the 50'2 and low 60's. I do not want to add a diuretic because I have a hard time getting her to drink enough water as it is and she had ARF at the last admission due to Dehydration. PT/OT/ST notes were reviewed. BS record was reviewed and the BS's are in good control. She is currently on Tradjenta 5 mg daily and Amaryl 1 mg daily. All lab was personally reviewed. Hemoglobin today is 9.9, down from 10.7 on 07/01/2019 and I suspect this is due to her increased water intake rather than blood loss. The BUN today is 30 with a creatinine of 1.22 which is down from 1.27 on 07/04/2019. Magnesium is 1.8. Alert, appropriate, no apparent distress, smiling and in a good mood. Lungs-clear to auscultation Heart-regular rate and rhythm Abdomen-obese, soft, nontender, bowel sounds heard, no guarding with palpation No peripheral edema See the therapy notes for description of how she is progressing Impressions 1. Post stroke debility 2. Suspected paroxysmal atrial fibrillation-will need an event monitor at discharge 3. Diabetes mellitus type 7-ikaf-vikbvlpdkp 4. Hypertension-we have not yet reached the goal of the neurology service at [facility] for blood pressure control which is less than 120/80. Adding the Amlodipine really does not seem to have made a significant difference in the BP. Will DC the Amlodipine and try Procardia XL 30 mg daily. Continue losartan 100 mg daily and atenolol 50 mg daily. Need to also consider that anxiety may be playing a part in the elevated BP.....If the Procardia is not effective consider a trial of Buspar or increase the Sertraline to 100 mg. 5. Chronic renal failure stage III-stable Inpatient E&M: 40624 [facility] Hosp L2
--- NOTE | 2019-07-09 14:56 | CHAPLAIN ---
Type of Pastoral Visit _x__ Initial Visit ___ Follow-up Visit ___ On-call Visit ___ General Patient Visit ___ Spiritual Assessment ___ Family Conference ___ Bereavement ___ Rapid Response ___ Code Blue ___ Other (describe below) Pastoral Care Referral From _x__ Patient ___ Family ___ Nurse ___ Physician ___ Auto Travel Counselor ___ Classroom Monitor ___ Other (describe below) Sacrament/Intervention _x__ Active listening ___ Anointing ___ Presybeterian ___ Bereavement ___ Communion ___ Farida exploration ___ _x__ Life review _x__ Prayer ___ Reconciliation ___ Sacrament of Sick _x__ Supportive presence ___ Wedding ___ Other (describe below) Pastoral Comments
[2019-07-09 16:50] LABS: Bedside Glucose 135 mg/dL (70-110)
[2019-07-09 18:54] VITALS: BP 138/64; PULSE 63; RESP 16; TEMP 36.4; O2SAT 98
[2019-07-09 20:00] VITALS: PULSE 63; RESP 16; O2SAT 98; BMI 44.8
[2019-07-09] MEDS: Atorvastatin Calcium 40 MG Tablet PO (20:27)
[2019-07-09 21:01] LABS: Bedside Glucose 140 mg/dL (70-110)
--- NOTE | 2019-07-10 06:14 | NURSING ---
pt was coming out of the shower holding on to bars , pt had stepped onto the green pad and slipped to the floor landing on her buttocks. pt denied any pain or injury. there was no external rotation of either leg and denied any discomfort when assisted to a standing position. no abrasions or bruising was noted at this time. rn and laundromat manager aware of fall. vs stable bp 126/56, ap 66, temp 97.7, resp 18, and spo2 was 98% on ra.
[2019-07-10 06:45] LABS: Bedside Glucose 128 mg/dL (70-110)
[2019-07-10 07:18] VITALS: O2SAT 96
[2019-07-10] MEDS: Sertraline 50 MG Tablet PO (08:46)
[2019-07-10] MEDS: NIFEdipine 30 MG Tablet PO (08:46)
[2019-07-10] MEDS: Multivitamins,Therapeutic Tablet 1 TABLET PO (08:47)
[2019-07-10] MEDS: Magnesium Oxide 400 MG Tablet PO (08:47)
[2019-07-10] MEDS: LINAGLIPTIN 5 MG TABLET PO (08:47)
[2019-07-10] MEDS: Atenolol 50 MG Tablet PO (08:47)
[2019-07-10] MEDS: Losartan Potassium 100 MG Tablet PO (08:47)
[2019-07-10] MEDS: Aspirin E.C. 325 MG Tablet PO (08:47)
[2019-07-10] MEDS: Glimepiride 2 MG Tablet 1 MG PO (08:48)
[2019-07-10] MEDS: Senna/Docusate Sodium 1 Tablet 2 TABLET PO ×2 (08:48→21:27)
[2019-07-10] MEDS: Heparin Injection 5,000 UNITS/ML Syringe 5000 UNITS SC ×2 (08:48→21:27)
[2019-07-10] MEDS: Menthol/Lanolin/Calamine/Znox 113 GM Tube 1 APPLIC TOPICAL ×2 (08:49→21:28)
[2019-07-10] MEDS: Nystatin Powder 15gm Bottle 1 APPLIC TOPICAL ×2 (08:50→21:28)
[2019-07-10 09:22] VITALS: BP 129/56; PULSE 66; RESP 18; TEMP 36.5; O2SAT 98
--- NOTE | 2019-07-10 10:14 | CASEMGMT ---
Social Work Met with pt and sister via conference call for team meeting. Pt is SBA to stand and min to mod assist for bed mobility. Pt is able to do 2-5 steps at CGA with 2 HR. Pt is able to walk 50ft at CGA with FWW. Pt has ataxia in rt hand with poor coordination, however coordination is improving. Pt is CGA for toilet transfers. Pt is able to do LE ADLS at mod-max assist and UE ADLS at min assist. Pt to work on speech clarity, word finding with filler words. Pt fell this morning 07/09, but complains of no pain. Pt has positive outlook. Explained [employer] insurance to pt, NRD 07/09-therapy recommending continued stay and HHC upon DC. Will continue to follow. Alesha Rincon, social work pricing intern Keren Rivera, SPACER TYPE BAR AND SEGMENT ENVIRONMENTAL SCIENCE TECHNICIAN
[2019-07-10 11:22] VITALS: BMI 44.8
--- NOTE | 2019-07-10 14:03 | PCM.PN.BLA ---
Progress Note Cortney was seen on team rounds today. Her Sister Norah participated in the conference call. Afebile VSS-blood pressure was not controlled to the goal of the [facility] neurology department so the amlodipine was discontinued yesterday and she has been started on nifedipine. Current blood pressure is 129/56. Her heart rate is in the 60s. Maintaining appropriate oxygen saturation on RA Oral intake is only fair. We are frequently need to remind her to increase her fluid intake. Discussed with nursing -the patient had a fall in the shower today. She slipped and slid down to her buttocks. She denies any back pain or pelvic pain and denies any significant injury. Reviewed the PT/OT/ST notes Medication list reviewed. Blood sugar record was reviewed and the blood sugars are under excellent control on diet, Amaryl 1 mg daily and Tradjenta 5 mg daily. Sliding scale insulin has been discontinued and we are going to decrease the frequency of the blood sugar checks Alert, appropriate, smiling and participating in the conversation Lungs-clear to auscultation Heart-regular rate and rhythm, no irregular rhythms anytime I have examined her however due to multiple sites of infarct atrial fibrillation is suspected and she will need a Holter at discharge along with a ALONDRA No peripheral edema No calf tenderness No rashes and no skin breakdown Impressions 1. Post stroke debility 2. Suspected paroxysmal atrial fibrillation-will need an event monitor at discharge 3. Diabetes mellitus type 4-fjgh-utmzjurieo 4. Hypertension- started on Procardia a dew days ago 5. Chronic renal failure stage III-stable 6. S/P fall/slipped to the floor on her buttocks...no injury continue therapy
--- NOTE | 2019-07-10 15:14 | CASEMGMT ---
Social Work Insurance approved pt for more days, NRD 07/13. Notified pt and sister. Will continue to follow. Keren Rivera, MANUFACTURING WORKER BODY TECHNICIAN/PAINTER
[2019-07-10 21:15] VITALS: BP 118/55; PULSE 57; RESP 18; TEMP 36.6; O2SAT 97; BMI 44.8
[2019-07-10] MEDS: Atorvastatin Calcium 40 MG Tablet PO (21:27)
[2019-07-11] MEDS: Atenolol 50 MG Tablet PO (08:04)
[2019-07-11] MEDS: Senna/Docusate Sodium 1 Tablet 2 TABLET PO ×2 (08:04→20:59)
[2019-07-11] MEDS: Glimepiride 2 MG Tablet 1 MG PO (08:04)
[2019-07-11] MEDS: Aspirin E.C. 325 MG Tablet PO (08:04)
[2019-07-11] MEDS: NIFEdipine 30 MG Tablet PO (08:05)
[2019-07-11] MEDS: Losartan Potassium 100 MG Tablet PO (08:05)
[2019-07-11] MEDS: Multivitamins,Therapeutic Tablet 1 TABLET PO (08:05)
[2019-07-11] MEDS: Heparin Injection 5,000 UNITS/ML Syringe 5000 UNITS SC ×2 (08:05→20:58)
[2019-07-11] MEDS: LINAGLIPTIN 5 MG TABLET PO (08:05)
[2019-07-11] MEDS: Sertraline 50 MG Tablet PO (08:05)
[2019-07-11] MEDS: Magnesium Oxide 400 MG Tablet PO (08:05)
[2019-07-11 08:06] VITALS: BP 123/60; PULSE 67; RESP 18; TEMP 36.4; O2SAT 100
[2019-07-11] MEDS: Menthol/Lanolin/Calamine/Znox 113 GM Tube 1 APPLIC TOPICAL ×2 (08:09→20:57)
[2019-07-11] MEDS: Nystatin Powder 15gm Bottle 1 APPLIC TOPICAL ×2 (08:09→20:58)
[2019-07-11 10:11] VITALS: BMI 44.8
--- NOTE | 2019-07-11 13:01 | PCM.PN.BLA ---
Progress Note Blood pressure is coming under better control with discontinuation of amlodipine and initiation of Procardia XL 30 mg daily. A.m. blood pressure today is 123/60 and the blood pressure at at bedtime was 118/55. Blood sugars remain well controlled She continues to deny any low back pain or pelvic pain since she slipped to the floor in the shower yesterday. alert, appropriate, NAD Lungs - CTA H - RRR no edema No bruising to the back or buttocks Impressions 1. HTN - getting better with Change in the CCB from Amlodipine to Procardia XL 2. DM II - well controlled continue therapy Inpatient E&M: 81002 Subs Hosp L1
[2019-07-11 17:36] LABS: Bedside Glucose 132 mg/dL (70-110)
[2019-07-11 20:06] VITALS: BP 123/69; PULSE 61; RESP 18; TEMP 36.6; O2SAT 100
[2019-07-11] MEDS: Atorvastatin Calcium 40 MG Tablet PO (20:59)
[2019-07-11 21:01] VITALS: BMI 44.8
[2019-07-11 21:10] VITALS: RESP 18
[2019-07-12 06:15] LABS: Bedside Glucose 121 mg/dL (70-110)
[2019-07-12 06:30] VITALS: O2SAT 97
[2019-07-12 08:17] VITALS: BP 104/52; PULSE 64; RESP 16; TEMP 36.4; O2SAT 96
[2019-07-12] MEDS: LINAGLIPTIN 5 MG TABLET PO (08:45)
[2019-07-12] MEDS: Glimepiride 2 MG Tablet 1 MG PO (08:45)
[2019-07-12] MEDS: Multivitamins,Therapeutic Tablet 1 TABLET PO (08:45)
[2019-07-12] MEDS: Aspirin E.C. 325 MG Tablet PO (08:45)
[2019-07-12] MEDS: Atenolol 50 MG Tablet PO (08:46)
[2019-07-12] MEDS: Losartan Potassium 100 MG Tablet PO (08:46)
[2019-07-12] MEDS: Magnesium Oxide 400 MG Tablet PO (08:46)
[2019-07-12] MEDS: Sertraline 50 MG Tablet PO (08:46)
[2019-07-12] MEDS: NIFEdipine 30 MG Tablet PO (08:47)
[2019-07-12] MEDS: Heparin Injection 5,000 UNITS/ML Syringe 5000 UNITS SC ×2 (08:47→20:49)
[2019-07-12] MEDS: Nystatin Powder 15gm Bottle 1 APPLIC TOPICAL ×2 (08:52→20:49)
[2019-07-12] MEDS: Menthol/Lanolin/Calamine/Znox 113 GM Tube 1 APPLIC TOPICAL ×2 (08:52→20:52)
[2019-07-12 15:55] VITALS: BMI 44.8
[2019-07-12 17:11] LABS: Bedside Glucose 118 mg/dL (70-110)
[2019-07-12 18:44] VITALS: BP 107/50; PULSE 58; RESP 17; TEMP 36.5; O2SAT 98
[2019-07-12 20:45] VITALS: BMI 44.8
[2019-07-12] MEDS: Senna/Docusate Sodium 1 Tablet 2 TABLET PO (20:48)
[2019-07-12] MEDS: Atorvastatin Calcium 40 MG Tablet PO (20:49)
[2019-07-12 22:00] VITALS: RESP 17
[2019-07-13 06:26] LABS: Bedside Glucose 115 mg/dL (70-110)
[2019-07-13 07:53] VITALS: BP 114/57; PULSE 61; RESP 14; TEMP 36.6; O2SAT 99
[2019-07-13] MEDS: Aspirin E.C. 325 MG Tablet PO (08:31)
[2019-07-13] MEDS: Atenolol 50 MG Tablet PO (08:31)
[2019-07-13] MEDS: Multivitamins,Therapeutic Tablet 1 TABLET PO (08:31)
[2019-07-13] MEDS: NIFEdipine 30 MG Tablet PO (08:32)
[2019-07-13] MEDS: Glimepiride 2 MG Tablet 1 MG PO (08:32)
[2019-07-13] MEDS: Losartan Potassium 100 MG Tablet PO (08:32)
[2019-07-13] MEDS: LINAGLIPTIN 5 MG TABLET PO (08:32)
[2019-07-13] MEDS: Senna/Docusate Sodium 1 Tablet 2 TABLET PO ×2 (08:33→20:26)
[2019-07-13] MEDS: Sertraline 50 MG Tablet PO (08:33)
[2019-07-13] MEDS: Magnesium Oxide 400 MG Tablet PO (08:34)
[2019-07-13] MEDS: Nystatin Powder 15gm Bottle 1 APPLIC TOPICAL ×2 (08:35→20:26)
[2019-07-13] MEDS: Menthol/Lanolin/Calamine/Znox 113 GM Tube 1 APPLIC TOPICAL ×2 (08:35→20:26)
[2019-07-13] MEDS: Heparin Injection 5,000 UNITS/ML Syringe 5000 UNITS SC ×2 (08:38→20:27)
[2019-07-13 11:33] VITALS: BMI 44.8
[2019-07-13 19:22] VITALS: BP 118/59; PULSE 60; RESP 16; TEMP 36.6; O2SAT 100
[2019-07-13] MEDS: Atorvastatin Calcium 40 MG Tablet PO (20:26)
[2019-07-14 05:00] VITALS: BMI 44.8
[2019-07-14] MEDS: Magnesium Hydroxide 30 ML UDC PO (06:13)
[2019-07-14] MEDS: NIFEdipine 30 MG Tablet PO (08:07)
[2019-07-14] MEDS: Sertraline 50 MG Tablet PO (08:07)
[2019-07-14] MEDS: Aspirin E.C. 325 MG Tablet PO (08:07)
[2019-07-14] MEDS: Magnesium Oxide 400 MG Tablet PO (08:07)
[2019-07-14] MEDS: LINAGLIPTIN 5 MG TABLET PO (08:07)
[2019-07-14] MEDS: Multivitamins,Therapeutic Tablet 1 TABLET PO (08:07)
[2019-07-14] MEDS: Atenolol 50 MG Tablet PO (08:07)
[2019-07-14] MEDS: Losartan Potassium 100 MG Tablet PO (08:07)
[2019-07-14] MEDS: Glimepiride 2 MG Tablet 1 MG PO (08:08)
[2019-07-14] MEDS: Nystatin Powder 15gm Bottle 1 APPLIC TOPICAL ×2 (08:09→21:11)
[2019-07-14] MEDS: Menthol/Lanolin/Calamine/Znox 113 GM Tube 1 APPLIC TOPICAL ×2 (08:09→21:10)
[2019-07-14] MEDS: Senna/Docusate Sodium 1 Tablet 2 TABLET PO ×2 (08:10→21:11)
[2019-07-14 08:21] VITALS: BP 109/48; PULSE 60; RESP 16; TEMP 36.3; O2SAT 93
[2019-07-14] MEDS: Heparin Injection 5,000 UNITS/ML Syringe 5000 UNITS SC ×2 (12:07→21:11)
--- NOTE | 2019-07-14 14:12 | PN_ITS ---
Progress Note Afebile VSS-with the adjustments in the antihypertensive regimen the blood pressures are now less than 120/80 as per the goal of [facility]. Maintaining appropriate oxygen saturation on RA Oral intake is fair Discussed with nursing - no problems that need addressed Reviewed the PT/OT/ST notes Medication list reviewed. Blood sugar record was reviewed. All blood sugars are in good control. Cortney has no complaints today. She denies cough, shortness of breath, sore throat, chest pain, nausea, vomiting, abdominal pain. Alert and oriented X 3, NAD, appropriate, cooperative PERRL, EOMI MM are dry and there are no mucosal lesions The neck is supple and the trachea is midline, there are no cervical nodes Lungs are clear to auscultation Heart has a RRR with no gallop and no rub. Abdomen is soft, NT, ND and there are normal bowel sounds heard in all quadrants. there was no guarding with palpation CN's II - XII are grossly intact, she is enunciating better and speech is more intelligible. No facial asymmetry, making progress with balance and is working on ambulkating in more confined spaces and around objects now No peripheral edema, no calf tenderness Skin is warm and dry, no rashes, no breakdown. Mood is very upbeat and good. She is always cooperative and smiling. Impressions 1. Post right cerebellar and left MCA ischemic CVAs. Embolic strokes are suspected. 2. Hypertension-now controlled to the level recommended by the [facility] neurology team which is less than 120/80. 3. Diabetes mellitus type 3-jygj-npfsrxfhgx 4. Always somewhat dehydrated and we continue to encourage her to improve her fluid intake. 5. Suspected paroxysmal fibrillation and/or flutter -needs a 30-day event monitor at discharge and follow-up with cardiology scheduled. [facility] also recommends a transesophageal echocardiogram when the coven virus endemic is controlled and elective echocardiograms are being once again done at [facility]. 6. Sleep disordered breathing-we will try and schedule a sleep study for the night of discharge if they are being done again Continue therapy No need for adjustment in the medication regimen at this time Recheck CBC, BMP, mag and phosphorus on Sunday Inpatient E&M: [id number] [facility] Hosp L2
[2019-07-14 17:00] VITALS: BMI 44.8
[2019-07-14 18:01] LABS: Bedside Glucose 101 mg/dL (70-110)
[2019-07-14 19:31] VITALS: BP 140/71; PULSE 59; RESP 17; TEMP 36.4; O2SAT 100
[2019-07-14] MEDS: Atorvastatin Calcium 40 MG Tablet PO (21:11)
[2019-07-14 21:45] VITALS: BMI 44.8
[2019-07-15 06:21] LABS: Bedside Glucose 121 mg/dL (70-110)
[2019-07-15] MEDS: Sertraline 50 MG Tablet PO (08:02)
[2019-07-15] MEDS: Atenolol 50 MG Tablet PO (08:02)
[2019-07-15] MEDS: Magnesium Oxide 400 MG Tablet PO (08:03)
[2019-07-15] MEDS: NIFEdipine 30 MG Tablet PO (08:03)
[2019-07-15] MEDS: LINAGLIPTIN 5 MG TABLET PO (08:03)
[2019-07-15] MEDS: Losartan Potassium 100 MG Tablet PO (08:03)
[2019-07-15] MEDS: Heparin Injection 5,000 UNITS/ML Syringe 5000 UNITS SC ×2 (08:03→20:40)
[2019-07-15] MEDS: Glimepiride 2 MG Tablet 1 MG PO (08:03)
[2019-07-15] MEDS: Multivitamins,Therapeutic Tablet 1 TABLET PO (08:03)
[2019-07-15] MEDS: Aspirin E.C. 325 MG Tablet PO (08:03)
[2019-07-15] MEDS: Senna/Docusate Sodium 1 Tablet 2 TABLET PO ×2 (08:03→20:40)
[2019-07-15] MEDS: Menthol/Lanolin/Calamine/Znox 113 GM Tube 1 APPLIC TOPICAL ×2 (08:07→20:39)
[2019-07-15] MEDS: Nystatin Powder 15gm Bottle 1 APPLIC TOPICAL ×2 (08:07→20:39)
[2019-07-15 08:34] VITALS: BP 108/45; PULSE 66; RESP 16; TEMP 36.4; O2SAT 96
[2019-07-15 08:55] VITALS: BMI 44.8
[2019-07-15 19:51] VITALS: BP 140/62; PULSE 58; RESP 18; TEMP 36.3; O2SAT 99
[2019-07-15] MEDS: Atorvastatin Calcium 40 MG Tablet PO (20:40)
[2019-07-15 22:42] VITALS: BMI 44.8
[2019-07-16 06:45] LABS: Hematocrit 33.8 % (37-47); Hemoglobin 10.5 g/dL (12.0-15.0); Mean Corp Hgb Conc 31.1 g/dL (32-36); Mean Corpuscular Hgb 28.4 pg (27.0-32.0); Mean Corpuscular Volume 91.4 fL (81-99); Mean Platelet Vol. 9.8 fl (6.2-12.0); Platelet Count 226 K/mm3 (150-450); RBC Distribution Width CV 16.3 % (11.6-14.6); RBC Distribution Width SD 54.3 fl (35.1-43.9); White Blood Count 6.9 K/mm3 (4.4-11.0)
[2019-07-16 07:14] LABS: Anion Gap 6 (5-15); BUN 29 mg/dL (7-18); BUN/Creat Ratio 23.2 RATIO (10-20); Calcium,Total 9.4 mg/dL (8.5-10.1); Chloride 106 mmol/L (98-107); Creatinine, Serum 1.25 mg/dL (0.55-1.02); EST Glomerular Filtration Rate 44 mL/min (>60); Est Glom Filt Rate - Afr Amer 54 mL/min (>60); Estimated Creatinine Clearance 28.36 ml/min; Glucose 133 mg/dL (74-106); Magnesium 2.4 mg/dL (1.6-2.6); Phosphorus 3.8 mg/dL (2.5-4.9); Potassium 4.7 mmol/L (3.5-5.1); Sodium Level 139 mmol/L (136-145)
[2019-07-16 08:00] VITALS: BP 120/59; PULSE 59; RESP 16; TEMP 36.7; O2SAT 93
[2019-07-16] MEDS: Aspirin E.C. 325 MG Tablet PO (08:26)
[2019-07-16] MEDS: NIFEdipine 30 MG Tablet PO (08:26)
[2019-07-16] MEDS: Glimepiride 2 MG Tablet 1 MG PO (08:26)
[2019-07-16] MEDS: Multivitamins,Therapeutic Tablet 1 TABLET PO (08:26)
[2019-07-16] MEDS: LINAGLIPTIN 5 MG TABLET PO (08:27)
[2019-07-16] MEDS: Losartan Potassium 100 MG Tablet PO (08:27)
[2019-07-16] MEDS: Atenolol 50 MG Tablet PO (08:27)
[2019-07-16] MEDS: Heparin Injection 5,000 UNITS/ML Syringe 5000 UNITS SC ×2 (08:28→22:22)
[2019-07-16] MEDS: Magnesium Oxide 400 MG Tablet PO (08:28)
[2019-07-16] MEDS: Sertraline 50 MG Tablet PO (08:28)
[2019-07-16] MEDS: Nystatin Powder 15gm Bottle 1 APPLIC TOPICAL ×2 (08:40→22:22)
[2019-07-16] MEDS: Menthol/Lanolin/Calamine/Znox 113 GM Tube 1 APPLIC TOPICAL ×2 (08:41→22:22)
--- NOTE | 2019-07-16 09:08 | CASEMGMT ---
Social Work Insurance approved pt for more days, NRD 07/20. Notified pt and sister. Will continue to follow. Keren Rivera, SANDFILL OPERATOR AUTOMAT CAR ATTENDANT
--- NOTE | 2019-07-16 09:09 | PCM.PN.BLA ---
Progress Note Afebile VSS-the 8 PM blood pressure has been mildly increased at 140/62 and 140/71 for the past 2 days. We will continue to monitor. If it stays elevated, especially above 130 will adjust the antihypertensives. Maintaining appropriate oxygen saturation on RA Oral intake is fair Discussed with nursing - no problems that need addressed Reviewed the PT/OT/ST notes Medication list reviewed. The blood sugar record was reviewed. Blood sugars are under excellent control with no hypoglycemia. All lab work was personally reviewed. Electrolytes are all within normal limits. Creatinine is stable at 1.25 and the BUN is stable at 29. Hemoglobin is 10.5 today with normochromic normocytic indices and the platelets and white blood cell count are within normal limits. She is alert, appropriate, pleasant and smiling. The MM are dry today.....pt is aware she needs to increase her fluid intake Lungs-clear to auscultation, diminished in the bases, no Rales, no wheezes Heart-regular rate and rhythm, no gallop Abdomen-obese, soft, nontender to palpation, bowel sounds present no peripheral edema and no calf tenderness SKin is warm and dry with no rashes and no breakdown Impressions 1. Post stroke debility 2. DM II - excellent control 3. HTN - controlled 4. sleep disordered breathing - will need a sleep study arranged when the sleep lab is working again 5. Stage III chronic renal failure-stable 6. Normochromic normocytic anemia-possibly secondary to chronic renal failure check iron studies to r/o iron deficiency anemia in this pt with CRF. Inpatient E&M: [id number] Subs Hosp L2
[2019-07-16 12:44] LABS: Ferritin 22 ng/mL (8-252); Iron 50 ug/dL (50-170); Iron Binding Capacity,Total 297 ug/dL (250-450); PERCENT IRON SATURATION 16.8 % (15.0-55.0)
[2019-07-16 15:57] VITALS: BMI 44.8
[2019-07-16 16:36] LABS: Bedside Glucose 121 mg/dL (70-110)
[2019-07-16 19:27] VITALS: BP 124/66; PULSE 69; RESP 17; TEMP 36.3; O2SAT 97
[2019-07-16] MEDS: Atorvastatin Calcium 40 MG Tablet PO (22:22)
[2019-07-17 05:00] VITALS: BMI 44.8
[2019-07-17 06:55] LABS: Bedside Glucose 111 mg/dL (70-110)
[2019-07-17] MEDS: Senna/Docusate Sodium 1 Tablet 2 TABLET PO (07:54)
[2019-07-17] MEDS: Atenolol 50 MG Tablet PO (07:55)
[2019-07-17] MEDS: Losartan Potassium 100 MG Tablet PO (07:55)
[2019-07-17] MEDS: Heparin Injection 5,000 UNITS/ML Syringe 5000 UNITS SC ×2 (07:55→21:08)
[2019-07-17] MEDS: NIFEdipine 30 MG Tablet PO (07:55)
[2019-07-17] MEDS: Sertraline 50 MG Tablet PO (07:55)
[2019-07-17] MEDS: Glimepiride 2 MG Tablet 1 MG PO (07:55)
[2019-07-17] MEDS: Magnesium Oxide 400 MG Tablet PO (07:55)
[2019-07-17] MEDS: LINAGLIPTIN 5 MG TABLET PO (07:55)
[2019-07-17] MEDS: Multivitamins,Therapeutic Tablet 1 TABLET PO (07:56)
[2019-07-17] MEDS: Aspirin E.C. 325 MG Tablet PO (07:56)
[2019-07-17] MEDS: Menthol/Lanolin/Calamine/Znox 113 GM Tube 1 APPLIC TOPICAL ×2 (08:00→21:08)
[2019-07-17] MEDS: Nystatin Powder 15gm Bottle 1 APPLIC TOPICAL ×2 (08:01→21:07)
[2019-07-17 08:14] VITALS: BP 127/56; PULSE 59; RESP 12; TEMP 36.6; O2SAT 99
--- NOTE | 2019-07-17 10:34 | CASEMGMT ---
Social Work IDT met with patient and sister via conference call for Team Meeting. Discussed patient's progress in therapy. Pt is SBA for bed mobility, SBA for sitting to standing, walking 110 ft SBA with FWW, completed 5 steps LABORATORY TECHNICIAN with 2 HR. Pt's endurance, strength and coordination is improving as well as right arm ataxia. Pt is min assist for UE ADLS, toileting tasks min assist, and min to mod for LE ADLS, SBA grooming while seated, SBA standing for 10 mins. Pt fatigues more in the evening. Pt is doing well with speech and cognition strategies, word finding and expanding length of responses/phrases. Explained insurance update 07/20 and continued stay is not guaranteed. Pt and sister agree pt can return home with [facility]. IDT recommending pv duty aides to assist with A.M and P.M. care. Pt agreeable. Provided pt with [facility] list to choose agency. Pt requires FWW - will order at [place]. Provided sister with resources for handrails, MOW, tub benches and private duty aides via email. Will continue to follow. MITZI Lynn SHIP PILOT DISPATCHER
[2019-07-17 15:27] VITALS: BMI 44.8
--- NOTE | 2019-07-17 17:23 | PCM.PN.BLA ---
Progress Note Cortney was seen on team rounds today and her Sister Norah participated in a conference call with the team. Afebile VSS-blood pressure is controlled Maintaining appropriate oxygen saturation on RA. She wears nasal O2 at 2 L/min at night due to desaturation on an overnight trending pulse ox. Oral intake is fair Discussed with nursing - no problems that need addressed Reviewed the PT/OT/ST notes Medication list reviewed. Blood sugar record was reviewed and the blood sugars are under excellent control with no hypoglycemia. Cortney tells me that she feels that she will be able to go home with HHC and possibly an aid to help with morning ritual. Her sister Norah is in agreement. KARIS Veliz will arrange HHC and Norah will call agencies to see if they can get a part-time aid. Meals on wheels can be arranged and Tracey is interested in this. Both Tracey and Norah understand that she will need to have a 30 day event monitor at [place] and then follow up with cardiology for a ALONDRA. She will also need a sleep study since she desaturates at night while sleeping. She was able to ambulate 90 feet x 2 today with a wheeled walker. She did 5 steps with continuous guard assist and 2 rails. She does not have rails on the back steps and there is a walkway to the back steps but no walkway to the front steps. Norah is going to see if she can have a railing installed. Alert, oriented x3 Lungs-clear to auscultation Heart-regular rate and rhythm, no gallop, no ectopy Abdomen-soft, nontender, nondistended, bowel sounds present, no guarding with palpation. Large pannus. No calf tenderness and no peripheral edema no rashes and no breakdown Pression's 1. Debility due to ischemic CVAs, right cerebellum and left MCA. Suspect emboli. 2. Sleep disordered breathing-continue oxygen anytime she is sleeping. Oxygen at discharge. Schedule sleep study as an outpatient and follow-up with pulmonary medicine 3. Paroxysmal atrial [id number] event monitor and cardiology follow-up at discharge 4. Diabetes mellitus type 2-excellent control 5. Wjlnljnrckay-oviu-[id number] Continue therapy. Inpatient E&M: [id number] [facility] Hosp L2
[2019-07-17 19:30] VITALS: BP 131/55; PULSE 60; RESP 16; TEMP 36.4; O2SAT 100
[2019-07-17] MEDS: Atorvastatin Calcium 40 MG Tablet PO (21:07)
[2019-07-17 23:53] VITALS: PULSE 63; O2SAT 98
[2019-07-18 00:02] VITALS: PULSE 61; O2SAT 92
[2019-07-18 00:10] VITALS: PULSE 63; O2SAT 98
--- NOTE | 2019-07-18 09:49 | PCM.PN.BLA ---
Progress Note Afebile VSS Maintaining appropriate oxygen saturation on RA Oral intake is fair. She really does not like to drink water and she needs to be continually reminded to increase her water intake. Discussed with nursing - no problems that need addressed Reviewed the PT/OT/ST notes Medication list reviewed. Blood sugar record reviewed Cortney was seen in the therapy room today. She was seated in a chair lifting 1 pound weights. She is very alert and appears in no acute distress. She denies dysuria, nausea/vomiting, chest pain, shortness of breath, joint or muscle pain, sore throat. No problems with diarrhea or constipation Alert, oriented x3, no apparent distress Mucous membranes are dry and patient was encouraged to increase her fluid intake once again. Lungs-clear to auscultation, diminished Heart-regular rate and rhythm Abdomen-soft, nontender, nondistended, no guarding with palpation No ankle edema No rashes and no breakdown Impressions 1. Post stroke debility 2. DM II - excellent control 3. HTN - controlled 4. sleep disordered breathing - will need a sleep study arranged when the sleep lab is working again 5. Stage III chronic renal failure-stable 6. Normochromic normocytic anemia- found to be iron deficient on iron studies. she has been started on a supplement. she will need to follow up with nephrology at [place]. Will have her get a repeat ferritin in 4 weeks and if it is not increasing will likely need IV iron. Check a hemoccult stool. Inpatient E&M: [id number] Subs Hosp L2
[2019-07-18 10:00] VITALS: BP 127/63; PULSE 59; RESP 18; TEMP 36.4; O2SAT 98
[2019-07-18] MEDS: LINAGLIPTIN 5 MG TABLET PO (10:09)
[2019-07-18] MEDS: Atenolol 50 MG Tablet PO (10:09)
[2019-07-18] MEDS: Senna/Docusate Sodium 1 Tablet 2 TABLET PO (10:09)
[2019-07-18] MEDS: Magnesium Oxide 400 MG Tablet PO (10:09)
[2019-07-18] MEDS: Glimepiride 2 MG Tablet 1 MG PO (10:09)
[2019-07-18] MEDS: Aspirin E.C. 325 MG Tablet PO (10:09)
[2019-07-18] MEDS: Multivitamins,Therapeutic Tablet 1 TABLET PO (10:09)
[2019-07-18] MEDS: NIFEdipine 30 MG Tablet PO (10:09)
[2019-07-18] MEDS: Losartan Potassium 100 MG Tablet PO (10:09)
[2019-07-18] MEDS: Sertraline 50 MG Tablet PO (10:09)
[2019-07-18] MEDS: Heparin Injection 5,000 UNITS/ML Syringe 5000 UNITS SC ×2 (10:10→21:12)
[2019-07-18] MEDS: Nystatin Powder 15gm Bottle 1 APPLIC TOPICAL ×2 (10:17→21:15)
[2019-07-18] MEDS: Menthol/Lanolin/Calamine/Znox 113 GM Tube 1 APPLIC TOPICAL ×2 (10:17→21:14)
[2019-07-18 17:00] VITALS: BMI 44.8
[2019-07-18 18:00] LABS: Bedside Glucose 96 mg/dL (70-110)
[2019-07-18 20:07] VITALS: BP 110/75; PULSE 60; RESP 16; TEMP 36.7; O2SAT 97
[2019-07-18 20:11] VITALS: BMI 44.8
[2019-07-18] MEDS: Atorvastatin Calcium 40 MG Tablet PO (21:12)
[2019-07-19 07:00] VITALS: BP 118/57; PULSE 59; RESP 17; TEMP 36.5; O2SAT 96
[2019-07-19 07:11] LABS: Bedside Glucose 118 mg/dL (70-110)
[2019-07-19] MEDS: LINAGLIPTIN 5 MG TABLET PO (08:55)
[2019-07-19] MEDS: Atenolol 50 MG Tablet PO (08:55)
[2019-07-19] MEDS: NIFEdipine 30 MG Tablet PO (08:55)
[2019-07-19] MEDS: Heparin Injection 5,000 UNITS/ML Syringe 5000 UNITS SC ×2 (08:55→21:15)
[2019-07-19] MEDS: Multivitamins,Therapeutic Tablet 1 TABLET PO (08:56)
[2019-07-19] MEDS: Sertraline 50 MG Tablet PO (08:56)
[2019-07-19] MEDS: Senna/Docusate Sodium 1 Tablet 2 TABLET PO ×2 (08:56→21:15)
[2019-07-19] MEDS: Magnesium Oxide 400 MG Tablet PO (08:56)
[2019-07-19] MEDS: Glimepiride 2 MG Tablet 1 MG PO (08:57)
[2019-07-19] MEDS: Aspirin E.C. 325 MG Tablet PO (08:57)
[2019-07-19] MEDS: Losartan Potassium 100 MG Tablet PO (08:58)
[2019-07-19] MEDS: Nystatin Powder 15gm Bottle 1 APPLIC TOPICAL ×2 (09:02→21:31)
[2019-07-19] MEDS: Menthol/Lanolin/Calamine/Znox 113 GM Tube 1 APPLIC TOPICAL (09:02)
[2019-07-19] MEDS: Ferrous Sulfate 325 MG Tablet PO (12:15)
[2019-07-19 12:54] VITALS: BMI 44.8
[2019-07-19 21:15] VITALS: BP 117/71; PULSE 65; RESP 18; TEMP 36.6; O2SAT 96; BMI 44.8
[2019-07-19] MEDS: Atorvastatin Calcium 40 MG Tablet PO (21:15)
[2019-07-20] MEDS: NIFEdipine 30 MG Tablet PO (08:16)
[2019-07-20] MEDS: Sertraline 50 MG Tablet PO (08:16)
[2019-07-20] MEDS: Senna/Docusate Sodium 1 Tablet 2 TABLET PO ×2 (08:16→21:30)
[2019-07-20] MEDS: Losartan Potassium 100 MG Tablet PO (08:16)
[2019-07-20] MEDS: LINAGLIPTIN 5 MG TABLET PO (08:16)
[2019-07-20] MEDS: Atenolol 50 MG Tablet PO (08:17)
[2019-07-20] MEDS: Heparin Injection 5,000 UNITS/ML Syringe 5000 UNITS SC ×2 (08:17→21:30)
[2019-07-20] MEDS: Aspirin E.C. 325 MG Tablet PO (08:17)
[2019-07-20] MEDS: Magnesium Oxide 400 MG Tablet PO (08:17)
[2019-07-20] MEDS: Glimepiride 2 MG Tablet 1 MG PO (08:17)
[2019-07-20] MEDS: Multivitamins,Therapeutic Tablet 1 TABLET PO (08:17)
[2019-07-20] MEDS: Menthol/Lanolin/Calamine/Znox 113 GM Tube 1 APPLIC TOPICAL ×2 (08:20→21:31)
[2019-07-20] MEDS: Nystatin Powder 15gm Bottle 1 APPLIC TOPICAL ×2 (08:20→21:30)
[2019-07-20 09:49] VITALS: BP 116/54; PULSE 64; RESP 18; TEMP 36.7; O2SAT 94
[2019-07-20] MEDS: Ferrous Sulfate 325 MG Tablet PO (12:08)
[2019-07-20 12:47] VITALS: BMI 44.8
[2019-07-20 17:36] LABS: Bedside Glucose 93 mg/dL (70-110)
[2019-07-20 21:15] VITALS: BP 121/62; PULSE 57; RESP 14; TEMP 36.8; O2SAT 100; BMI 44.8
[2019-07-20] MEDS: Atorvastatin Calcium 40 MG Tablet PO (21:30)
[2019-07-21 07:05] LABS: Bedside Glucose 114 mg/dL (70-110)
[2019-07-21] MEDS: Glimepiride 2 MG Tablet 1 MG PO (08:04)
[2019-07-21] MEDS: Aspirin E.C. 325 MG Tablet PO (08:04)
[2019-07-21] MEDS: Magnesium Oxide 400 MG Tablet PO (08:05)
[2019-07-21] MEDS: Multivitamins,Therapeutic Tablet 1 TABLET PO (08:06)
[2019-07-21] MEDS: Atenolol 50 MG Tablet PO (08:06)
[2019-07-21] MEDS: Losartan Potassium 100 MG Tablet PO (08:06)
[2019-07-21] MEDS: NIFEdipine 30 MG Tablet PO (08:06)
[2019-07-21] MEDS: Heparin Injection 5,000 UNITS/ML Syringe 5000 UNITS SC ×2 (08:06→21:52)
[2019-07-21] MEDS: Senna/Docusate Sodium 1 Tablet 2 TABLET PO ×2 (08:06→21:52)
[2019-07-21] MEDS: LINAGLIPTIN 5 MG TABLET PO (08:07)
[2019-07-21] MEDS: Sertraline 50 MG Tablet PO (08:07)
[2019-07-21] MEDS: Menthol/Lanolin/Calamine/Znox 113 GM Tube 1 APPLIC TOPICAL ×2 (08:07→21:53)
[2019-07-21] MEDS: Nystatin Powder 15gm Bottle 1 APPLIC TOPICAL ×2 (08:08→21:52)
[2019-07-21 09:12] VITALS: BP 132/52; PULSE 59; RESP 16; TEMP 36.5; O2SAT 92
--- NOTE | 2019-07-21 11:40 | PN_ITS ---
Progress Note Afebile VSS-blood pressures are well controlled the transition from amlodipine 10 mg to Procardia XL 30 mg daily. Maintaining appropriate oxygen saturation on RA Oral intake is variable but considered to be fair The last bowel movement was 07/21/2019 and she is having a bowel movement approximately every 2 to 3 days. Discussed with nursing - no problems that need addressed Reviewed the PT/OT/ST notes Medication list reviewed. Blood sugar record was reviewed and the blood sugars are under good control with no hypoglycemia. She denies abdominal pain, joint pain, muscle pain, shortness of breath. She is not coughing. No nausea, no vomiting. She is doing quite well in PT/OT/ST and she continues to improve daily. Better endurance and better standing balance. I reviewed Balaji's notes from today and he has been working with her for physical therapy for the past 4 days. She walked 160 feet today with standby/contact- guard. Still having some unsteadiness requiring CGA for steadying. She did the NuStep for 30 minutes today. Pulse ox was 96% with exercise. She did the TUG test in 20 to 30 seconds today due to variable mobility. This is down from 34.87 seconds on 07/15/2019. She was also able to do 10 sit to stands in 30 seconds which is improving. She is progressing toward her long-term goals. Has not ambulated on different surfaces yet. Alert, oriented x3, pleasant, smiling, no apparent distress Lungs-diminished but clear to auscultation Heart-regular rate and rhythm, no gallop Abdomen-soft, nontender, nondistended, good bowel function No peripheral edema No rashes, no breakdown Impressions 1. Debility secondary to initial right cerebellar ischemic infarct followed by a second stroke causing extension of the right cerebellar infarct and now with a left MCA infarct. Suspect these are embolic. She will need a 30-day event monitor and a follow-up appointment with cardiology at discharge. 2. Sleep disordered breathing-on oxygen at night until she can have a outpatient sleep study and be placed on appropriate PAP therapy. suspect the suspected SOPHIE contributes to the PAF. 3. Diabetes mellitus type 2-excellent control on oral medications only including Amaryl and Tradjenta 4. Hypertension-controlled Insurance update today and she has a DC date on 07/29/19. Continue therapy. STROKE Vital Signs/Narrative: Vital Signs Temp Pulse Resp BP Pulse Ox 07/21/19 09:12 97.7 F L 59 L 16 132/52 H 92 Inpatient E&M: 05488 Subs Hosp L2
[2019-07-21] MEDS: Ferrous Sulfate 325 MG Tablet PO (12:05)
[2019-07-21 13:53] VITALS: BMI 44.8
--- NOTE | 2019-07-21 16:36 | CASEMGMT ---
Social Work Insurance issued DC date 07/28 for pt. Notified pt and dtr - both agreeable. Pt requesting [facility] PT/OT/ST/SN/RIDDLE. Updated [employer] for FWW and O2. Sister has contacted all recreational aide agencies and they are not taking new pts due to COVID-19. Sister kept pt on waitlist. Plan: DC home alone 07/28 with [facility] PT/OT/ST/SN/RIDDLE. [employer] - FWW, night O2. MITZI LynnW
[2019-07-21 17:56] LABS: Bedside Glucose 105 mg/dL (70-110)
[2019-07-21 21:50] VITALS: PULSE 59; RESP 16; O2SAT 95; BMI 44.8
[2019-07-21] MEDS: Atorvastatin Calcium 40 MG Tablet PO (21:52)
[2019-07-21 22:00] VITALS: BP 133/65; PULSE 59; RESP 16; TEMP 36.6; O2SAT 100
--- NOTE | 2019-07-22 03:39 | NURSING ---
Reviewed and agree with DIVISION ENGINEER documentation.
[2019-07-22] MEDS: Glimepiride 2 MG Tablet 1 MG PO (08:27)
[2019-07-22] MEDS: Aspirin E.C. 325 MG Tablet PO (08:27)
[2019-07-22] MEDS: Magnesium Oxide 400 MG Tablet PO (08:28)
[2019-07-22] MEDS: Heparin Injection 5,000 UNITS/ML Syringe 5000 UNITS SC ×2 (08:28→21:11)
[2019-07-22] MEDS: NIFEdipine 30 MG Tablet PO (08:28)
[2019-07-22] MEDS: Losartan Potassium 100 MG Tablet PO (08:28)
[2019-07-22] MEDS: LINAGLIPTIN 5 MG TABLET PO (08:28)
[2019-07-22] MEDS: Multivitamins,Therapeutic Tablet 1 TABLET PO (08:28)
[2019-07-22] MEDS: Senna/Docusate Sodium 1 Tablet 2 TABLET PO ×2 (08:28→21:11)
[2019-07-22] MEDS: Atenolol 50 MG Tablet PO (08:28)
[2019-07-22] MEDS: Menthol/Lanolin/Calamine/Znox 113 GM Tube 1 APPLIC TOPICAL ×2 (08:29→21:14)
[2019-07-22] MEDS: Sertraline 50 MG Tablet PO (08:29)
[2019-07-22] MEDS: Nystatin Powder 15gm Bottle 1 APPLIC TOPICAL ×2 (08:29→21:15)
[2019-07-22 09:14] VITALS: BP 114/63; PULSE 67; RESP 16; TEMP 37.1; O2SAT 97
[2019-07-22] MEDS: Ferrous Sulfate 325 MG Tablet PO (11:25)
[2019-07-22 15:31] VITALS: BMI 44.8
[2019-07-22 16:25] LABS: Bedside Glucose 125 mg/dL (70-110)
[2019-07-22 19:47] VITALS: BP 146/73; PULSE 62; RESP 18; TEMP 36.6; O2SAT 99
[2019-07-22] MEDS: Atorvastatin Calcium 40 MG Tablet PO (21:11)
[2019-07-23 01:16] VITALS: BMI 44.8
[2019-07-23 06:55] LABS: Bedside Glucose 119 mg/dL (70-110)
[2019-07-23 06:59] LABS: Hematocrit 30.4 % (37-47); Hemoglobin 9.8 g/dL (12.0-15.0)
[2019-07-23 07:28] LABS: Anion Gap 7 (5-15); BUN 30 mg/dL (7-18); BUN/Creat Ratio 23.8 RATIO (10-20); Calcium,Total 9.2 mg/dL (8.5-10.1); Chloride 105 mmol/L (98-107); Creatinine, Serum 1.26 mg/dL (0.55-1.02); EST Glomerular Filtration Rate 44 mL/min (>60); Est Glom Filt Rate - Afr Amer 53 mL/min (>60); Estimated Creatinine Clearance 28.14 ml/min; Glucose 132 mg/dL (74-106); Potassium 4.4 mmol/L (3.5-5.1); Sodium Level 138 mmol/L (136-145)
[2019-07-23] MEDS: Aspirin E.C. 325 MG Tablet PO (08:11)
[2019-07-23] MEDS: Glimepiride 2 MG Tablet 1 MG PO (08:11)
[2019-07-23] MEDS: NIFEdipine 30 MG Tablet PO (08:12)
[2019-07-23] MEDS: Heparin Injection 5,000 UNITS/ML Syringe 5000 UNITS SC ×2 (08:12→21:29)
[2019-07-23] MEDS: Senna/Docusate Sodium 1 Tablet 2 TABLET PO ×2 (08:12→21:28)
[2019-07-23] MEDS: Multivitamins,Therapeutic Tablet 1 TABLET PO (08:12)
[2019-07-23] MEDS: Magnesium Oxide 400 MG Tablet PO (08:12)
[2019-07-23] MEDS: Losartan Potassium 100 MG Tablet PO (08:12)
[2019-07-23] MEDS: Sertraline 50 MG Tablet PO (08:13)
[2019-07-23] MEDS: Atenolol 50 MG Tablet PO (08:13)
[2019-07-23] MEDS: Nystatin Powder 15gm Bottle 1 APPLIC TOPICAL ×2 (08:13→21:28)
[2019-07-23] MEDS: LINAGLIPTIN 5 MG TABLET PO (08:13)
[2019-07-23] MEDS: Menthol/Lanolin/Calamine/Znox 113 GM Tube 1 APPLIC TOPICAL ×2 (08:14→21:28)
[2019-07-23 09:26] VITALS: BP 134/62; PULSE 58; RESP 16; TEMP 36.4; O2SAT 95
--- NOTE | 2019-07-23 11:12 | PCM.PN.BLA ---
Progress Note Afebile VSS-blood pressure has been creeping up again. The goal per neurology at [facility] is less than 120/80. Over the past 48 hours her blood pressure has ranged from 114/63-140 6/73. Heart rate is within normal limits. Maintaining appropriate oxygen saturation on RA while awake. When sleeping she wears 2 L of nasal O2 because she desaturates with sleep and has sleep disordered breathing. Oral intake is good Discussed with nursing - no problems that need addressed Reviewed the PT/OT/ST notes Medication list reviewed. The blood sugar record was reviewed and the blood sugars are very well controlled. All lab was personally reviewed. Hemoglobin is stable at 9.8. Creatinine is stable at 1.26 and the BUN is 38. Calcium is normal at 9.2. She has no complaints today. Alert, no apparent distress, appropriate, pleasant Lungs-diminished in the bases but otherwise clear to auscultation Heart-regular rate and rhythm Abdomen-soft, nontender, normal bowel sounds heard No peripheral edema Still having ataxia with the RUE........may need to use a toileting aid when she goes home to wipe her bottom Impressions 1. Debility secondary to multiple CVAs including right cerebellar CVA initially followed by extension of the right cerebellar ischemic infarct and a new left MCA infarct. These are suspected to be embolic. She is to get a 30 day event monitor at [place]. 2. Sleep disordered breathing with hypoxia while sleeping. This could be the etiology of paroxysmal atrial fibrillation leading to CVAs. Will arrange sleep study for discharge. 3. Hypertension-blood pressures tend to be higher in the evening-we will split the atenolol dose to see if this helps. Really cannot increase the atenolol anymore due to bradycardia. continue to monitor the BP. I do not feel we should a diuretic because she does not drink enough as it is and when she gets dehydrated the CREAT increases. For the most part the BP is controlled with a few outliers mildly greater than 140. Cozaar is at 100 mg daily. She is on atenolol 50 mg daily and Procardia XL 30 mg daily. Will change the Atenolol from 50 mg in the AM to 25mg BID starting tomorrow. STROKE Vital Signs/Narrative: Vital Signs Temp Pulse Resp BP Pulse Ox 07/23/19 09:26 97.6 F L 58 L 16 134/62 H 95 Inpatient E&M: 59821 Subs Hosp L2
[2019-07-23] MEDS: Ferrous Sulfate 325 MG Tablet PO (11:18)
[2019-07-23 15:28] VITALS: BMI 44.8
[2019-07-23] MEDS: Atorvastatin Calcium 40 MG Tablet PO (21:28)
[2019-07-23] MEDS: Atenolol 25 MG Tablet PO (21:28)
[2019-07-23 22:00] VITALS: BP 142/59; PULSE 60; RESP 16; TEMP 36.6; O2SAT 98
[2019-07-24 01:05] VITALS: BMI 44.8
[2019-07-24] MEDS: Heparin Injection 5,000 UNITS/ML Syringe 5000 UNITS SC ×2 (09:10→20:45)
[2019-07-24] MEDS: Senna/Docusate Sodium 1 Tablet 2 TABLET PO ×2 (09:11→20:45)
[2019-07-24] MEDS: Sertraline 50 MG Tablet PO (09:11)
[2019-07-24] MEDS: Multivitamins,Therapeutic Tablet 1 TABLET PO (09:11)
[2019-07-24] MEDS: LINAGLIPTIN 5 MG TABLET PO (09:11)
[2019-07-24] MEDS: Magnesium Oxide 400 MG Tablet PO (09:11)
[2019-07-24] MEDS: Aspirin E.C. 325 MG Tablet PO (09:11)
[2019-07-24] MEDS: Losartan Potassium 100 MG Tablet PO (09:11)
[2019-07-24] MEDS: Atenolol 25 MG Tablet PO ×2 (09:11→20:44)
[2019-07-24] MEDS: NIFEdipine 30 MG Tablet PO (09:11)
[2019-07-24] MEDS: Glimepiride 2 MG Tablet 1 MG PO (09:12)
[2019-07-24] MEDS: Menthol/Lanolin/Calamine/Znox 113 GM Tube 1 APPLIC TOPICAL ×2 (09:17→20:46)
[2019-07-24] MEDS: Nystatin Powder 15gm Bottle 1 APPLIC TOPICAL ×2 (09:17→20:45)
[2019-07-24 09:28] VITALS: BP 147/55; PULSE 60; RESP 16; TEMP 36.6; O2SAT 97
[2019-07-24] MEDS: Ferrous Sulfate 325 MG Tablet PO (11:58)
--- NOTE | 2019-07-24 12:20 | CASEMGMT ---
Social Work IDT met with patient and sister via conference call for Team Meeting. Discussed patient's progress in therapy. Pt is SBA for transfers, walking 240 ft with FWW at SBA, completing 5 steps with 2 HR SBA/CGA, mod assist for LE dressing, min for UE dressing, min assist for toileting tasks, and min for bathing. Pt still having some ataxia which impacts her being able to clasp her bra and tram the artificial flowers supervisor for LE care. Recommended sister purchase a toileting aide to assist with hygiene for more independence. therapy recommending sister coordinate 2 HR be installed at pt's home to get in and out of the house. Provided resources to sister last Team meeting. has called all private duty agencies and only 2 agencies can accept new pts but the cost is too great for pt. With the recommendations of the additional aides, the pt should just need assistance with showers. SW ordered RAIL TRANSIT OPERATOR with skilled HHC to assist and sister can assist with morning routine when pt initially returns home. Pt plan to DC home 07/28. MITZI Lynn
[2019-07-24 16:14] VITALS: BMI 44.8
[2019-07-24 18:00] LABS: Bedside Glucose 102 mg/dL (70-110)
[2019-07-24 19:16] VITALS: BP 102/63; PULSE 64; RESP 16; TEMP 36.6; O2SAT 98
[2019-07-24 20:43] VITALS: BP 120/57; PULSE 61
[2019-07-24] MEDS: Atorvastatin Calcium 40 MG Tablet PO (20:45)
[2019-07-25 07:05] LABS: Bedside Glucose 106 mg/dL (70-110)
[2019-07-25] MEDS: Multivitamins,Therapeutic Tablet 1 TABLET PO (08:11)
[2019-07-25] MEDS: Sertraline 50 MG Tablet PO (08:12)
[2019-07-25] MEDS: Atenolol 25 MG Tablet PO ×2 (08:12→21:21)
[2019-07-25] MEDS: Senna/Docusate Sodium 1 Tablet 2 TABLET PO (08:12)
[2019-07-25] MEDS: Glimepiride 2 MG Tablet 1 MG PO (08:13)
[2019-07-25] MEDS: NIFEdipine 30 MG Tablet PO (08:13)
[2019-07-25] MEDS: Losartan Potassium 100 MG Tablet PO (08:13)
[2019-07-25] MEDS: LINAGLIPTIN 5 MG TABLET PO (08:13)
[2019-07-25] MEDS: Heparin Injection 5,000 UNITS/ML Syringe 5000 UNITS SC ×2 (08:14→21:20)
[2019-07-25] MEDS: Magnesium Oxide 400 MG Tablet PO (08:14)
[2019-07-25] MEDS: Aspirin E.C. 325 MG Tablet PO (08:14)
[2019-07-25 08:20] VITALS: BP 118/63; PULSE 62; RESP 12; TEMP 36.9; O2SAT 98
[2019-07-25] MEDS: Menthol/Lanolin/Calamine/Znox 113 GM Tube 1 APPLIC TOPICAL ×2 (08:39→21:19)
[2019-07-25] MEDS: Nystatin Powder 15gm Bottle 1 APPLIC TOPICAL ×2 (08:39→21:19)
--- NOTE | 2019-07-25 10:00 | PCM.PN.BLA ---
Progress Note Afebile VSS-blood pressure controlled Maintaining appropriate oxygen saturation on RA Oral intake is variable but has picked up Discussed with nursing - OT mentioned that they notice a rash on the left buttocks while bathing today, they were concerned about shingles Cortney denies pain in that area. OT did not notice this rash on Sunday when showering Reviewed the PT/OT/ST notes Medication list reviewed. Blood sugars are very well controlled with no hypoglycemia. Alert, oriented x3, no apparent distress, pleasant Lungs-diminished but clear to auscultation throughout. They are most diminished in the bases. She is not tachypneic and has no accessory muscle use or conversational dyspnea. Heart-regular rate and rhythm, no ectopy Abdomen-pendulous but soft, nontender and with normal bowel sounds No peripheral edema No calf tenderness The left buttocks was examined and she denies any pain in the area. There is a red macular rash with no vesicles on the Left cheek. No increased warmth to touch. No trauma to the area. It has the appearance of an early bruise or possibly a pressure area. Impressions 1. Debility secondary to CVA's 2. Diabetes mellitus type [id number] 3. Hypertension-controlled 4. Sleep disordered breathing-requisition was signed to obtain a sleep study as an outpatient. We will continue oxygen therapy until she has a sleep study and is prescribed pressure support therapy 5. ? stage 1 decub on the left buttock versus and early bruise, continue to monitor continue therapy Yesterday in TEAM her sister BRITTANY stated she could help Tracey with LE dressing in the AM. She will have an aid twice weekly to help with bathing. Will also have therapy at home STROKE Vital Signs/Narrative: Vital Signs Temp Pulse Resp BP Pulse Ox 07/25/19 08:20 98.4 F 62 12 118/63 98 Inpatient E&M: [id number] Subs Hosp L2
[2019-07-25] MEDS: Ferrous Sulfate 325 MG Tablet PO (12:23)
[2019-07-25 16:22] VITALS: BMI 44.8
[2019-07-25] MEDS: Atorvastatin Calcium 40 MG Tablet PO (21:21)
[2019-07-25 22:00] VITALS: BP 110/50; PULSE 64; RESP 16; TEMP 36.5; O2SAT 97
[2019-07-26 03:38] VITALS: BMI 44.8
[2019-07-26 08:10] VITALS: BP 113/63; PULSE 56; RESP 16; TEMP 36.3; O2SAT 96
[2019-07-26] MEDS: Magnesium Oxide 400 MG Tablet PO (08:30)
[2019-07-26] MEDS: Aspirin E.C. 325 MG Tablet PO (08:30)
[2019-07-26] MEDS: Multivitamins,Therapeutic Tablet 1 TABLET PO (08:30)
[2019-07-26] MEDS: Glimepiride 2 MG Tablet 1 MG PO (08:30)
[2019-07-26] MEDS: Losartan Potassium 100 MG Tablet PO (08:31)
[2019-07-26] MEDS: Heparin Injection 5,000 UNITS/ML Syringe 5000 UNITS SC ×2 (08:31→21:47)
[2019-07-26] MEDS: NIFEdipine 30 MG Tablet PO (08:32)
[2019-07-26] MEDS: Atenolol 25 MG Tablet PO ×2 (08:32→21:48)
[2019-07-26] MEDS: LINAGLIPTIN 5 MG TABLET PO (08:32)
[2019-07-26] MEDS: Sertraline 50 MG Tablet PO (08:32)
[2019-07-26] MEDS: Menthol/Lanolin/Calamine/Znox 113 GM Tube 1 APPLIC TOPICAL ×2 (08:35→21:56)
[2019-07-26] MEDS: Nystatin Powder 15gm Bottle 1 APPLIC TOPICAL ×2 (08:35→21:55)
[2019-07-26] MEDS: Ferrous Sulfate 325 MG Tablet PO (13:18)
[2019-07-26 15:04] VITALS: BMI 44.8
[2019-07-26 17:40] LABS: Bedside Glucose 127 mg/dL (70-110)
[2019-07-26 19:00] VITALS: BP 108/63; PULSE 66; RESP 17; TEMP 36.3; O2SAT 97
[2019-07-26] MEDS: Senna/Docusate Sodium 1 Tablet 2 TABLET PO (21:48)
[2019-07-26] MEDS: Atorvastatin Calcium 40 MG Tablet PO (21:48)
[2019-07-26 22:00] VITALS: PULSE 66; RESP 15; O2SAT 97
[2019-07-27 06:56] LABS: Bedside Glucose 132 mg/dL (70-110)
[2019-07-27] MEDS: Sertraline 50 MG Tablet PO (07:54)
[2019-07-27] MEDS: Glimepiride 2 MG Tablet 1 MG PO (07:54)
[2019-07-27] MEDS: NIFEdipine 30 MG Tablet PO (07:55)
[2019-07-27] MEDS: Senna/Docusate Sodium 1 Tablet 2 TABLET PO ×2 (07:55→20:57)
[2019-07-27] MEDS: Atenolol 25 MG Tablet PO ×2 (07:55→20:57)
[2019-07-27] MEDS: Aspirin E.C. 325 MG Tablet PO (07:55)
[2019-07-27] MEDS: Multivitamins,Therapeutic Tablet 1 TABLET PO (07:55)
[2019-07-27] MEDS: Magnesium Oxide 400 MG Tablet PO (07:56)
[2019-07-27] MEDS: Losartan Potassium 100 MG Tablet PO (07:57)
[2019-07-27] MEDS: LINAGLIPTIN 5 MG TABLET PO (07:57)
[2019-07-27] MEDS: Heparin Injection 5,000 UNITS/ML Syringe 5000 UNITS SC ×2 (07:57→20:56)
[2019-07-27] MEDS: Nystatin Powder 15gm Bottle 1 APPLIC TOPICAL ×2 (07:58→20:56)
[2019-07-27] MEDS: Menthol/Lanolin/Calamine/Znox 113 GM Tube 1 APPLIC TOPICAL ×2 (07:58→20:56)
[2019-07-27 10:00] VITALS: BP 96/60; PULSE 68; RESP 18; TEMP 36.3; O2SAT 96
[2019-07-27] MEDS: Ferrous Sulfate 325 MG Tablet PO (12:06)
[2019-07-27 14:17] VITALS: BMI 44.8
[2019-07-27] MEDS: Atorvastatin Calcium 40 MG Tablet PO (20:57)
[2019-07-27 21:00] VITALS: PULSE 60; RESP 18; O2SAT 96; BMI 44.8
[2019-07-27 22:00] VITALS: BP 127/68; PULSE 60; RESP 18; TEMP 36.6; O2SAT 96
[2019-07-28 06:36] LABS: Bedside Glucose 142 mg/dL (70-110)
[2019-07-28] MEDS: Losartan Potassium 100 MG Tablet PO (07:58)
[2019-07-28] MEDS: Magnesium Oxide 400 MG Tablet PO (07:58)
[2019-07-28] MEDS: Multivitamins,Therapeutic Tablet 1 TABLET PO (07:58)
[2019-07-28] MEDS: Aspirin E.C. 325 MG Tablet PO (07:58)
[2019-07-28] MEDS: LINAGLIPTIN 5 MG TABLET PO (07:58)
[2019-07-28] MEDS: NIFEdipine 30 MG Tablet PO (07:58)
[2019-07-28] MEDS: Glimepiride 2 MG Tablet 1 MG PO (07:59)
[2019-07-28] MEDS: Menthol/Lanolin/Calamine/Znox 113 GM Tube 1 APPLIC TOPICAL ×2 (08:03→20:24)
[2019-07-28] MEDS: Nystatin Powder 15gm Bottle 1 APPLIC TOPICAL ×2 (08:04→20:25)
[2019-07-28] MEDS: Heparin Injection 5,000 UNITS/ML Syringe 5000 UNITS SC ×2 (09:17→20:01)
[2019-07-28] MEDS: Senna/Docusate Sodium 1 Tablet 2 TABLET PO ×2 (09:17→20:00)
[2019-07-28] MEDS: Sertraline 50 MG Tablet PO (09:18)
[2019-07-28] MEDS: Atenolol 25 MG Tablet PO ×2 (09:18→20:01)
[2019-07-28 10:00] VITALS: BP 115/56; PULSE 56; RESP 18; TEMP 36.6; O2SAT 98
[2019-07-28] MEDS: Ferrous Sulfate 325 MG Tablet PO (12:07)
--- NOTE | 2019-07-28 13:39 | PN_ITS ---
Progress Note Afebile VSS-blood pressure is very well controlled. Maintaining appropriate oxygen saturation on RA Oral intake is variable-poor to fair Discussed with nursing - no problems that need addressed Reviewed the PT/OT/ST notes Medication list reviewed. Blood sugar record was reviewed. Blood sugars are under excellent control without hypoglycemia. Cortney has no complaints today. She denies chest pain, shortness of breath, nausea, abdominal pain, dysuria, calf pain. Alert, appropriate, oriented x3 Lungs-clear to auscultation but diminished, especially in the bases Heart-regular rate and rhythm, no gallop Abdomen-soft, nontender, nondistended, normal bowel sounds, no guarding with palpation No peripheral edema No calf tenderness Please see the therapy notes for daily update on progress. Impressions 1. Debility secondary to an ischemic right cerebellar CVA, complicated by an extension of the right cerebellar infarct and also a left MCA infarct following admission. The infarcts are suspected to be due to emboli. She will get a 30- day event monitor at discharge and an appointment with cardiology for follow-up. 2. Diabetes mellitus type [id number] 3. [id number]-[id number] 4. Sleep disordered breathing-we will go home on oxygen therapy anytime she is sleeping and she has been scheduled for a formal sleep study and will follow up with pulmonary medicine. Stage III chronic renal failure 5. Iron deficiency anemia-she is tolerating ferrous sulfate 325 mg daily with no gastrointestinal side effects 6. Depression-doing well on sertraline 50 mg daily 7. Low HDL 8. GERD 9. Left atrial enlargement-mild 10. Urinary tract infection at admission to the inpatient rehab unit-resolved 11. Benign paroxysmal positional vertigo 12. Intertrigo Discharge is planned for 07/29/2019. CBC, BMP and magnesium in the a.m. Follow-up with Dr. Aldrich in 7 to 10 days Follow-up with neurology 30-day event monitor at discharge and follow-up with cardiology Sleep study has been scheduled for sleep disordered breathing Home health care has been arranged by Danay. Her sister Norah can help her with lower body dressing in the mornings at home STROKE Vital Signs/Narrative: Vital Signs Temp Pulse Resp BP Pulse Ox 07/28/19 10:00 98 F 56 L 18 115/56 L 98 Inpatient E&M: [id number] Subs Hosp L2
--- NOTE | 2019-07-28 14:06 | DCINST_ITS ---
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 1600 calorie, low fat, low salt diet. Try and eat foods that are high in iron. you are deficient in iron and this contributes to the anemia., Cardiac Your food should be the consistency of: Soft (bite-sized & easy to chew/swallow) Your liquids should be the consistency of: Regular/Thin Discharge Activity: May Not Drive, May Shower Weight Bearing Status: Full weight bearing Keep extremity elevated above heart level: Legs Call your doctor if you observe: Fever of 101 or Higher, Inability to urinate, Inability to have a bowel movement, Shortness of breath, Dizziness, Fainting spells, Swelling in the ankles, Chest pain, Increased palpitations (irregular heartbeat), Calf discomfort, - - inability to get your speech out, difficulty swallowing, increaed weakness on one side and not the other, increased numbbness on one side and not the other Instructions: Stroke Prevention: Using Blood Thinners (Anticoagulants), Iron Supplements, MyPlate Worksheet: 1,600 Calories, ED AFIB Additional Instructions: 1. You had more than 1 stroke and they were on both sides of the brain. When we see this happen we think that blood clots may have caused the stroke. There was a clot in the R vertebral artery when we had to send you to [facility] with the second stroke. The most common cause of these clots, sofia in people your age and with suspected sleep apnea, is Atrial Fibrillation which is also called AF for short. Generally a patient with AF is on anticoagulants to prevent strokes. BUT, first we have to prove that you have Atrial Fibrillation. You will get a heart monitor to wear for 30 days when you go home and then you will follow up with the foam fabricator. 2. The diabetes is under EXCELLENT control with a 1600 calorie diet and minimal oral medication. If you can stick to 1600 calories not only will your blood sugars be controlled but you will slowly lose weight, the safe way. 3. Your BP is now well controlled. You are on 3 medications. Procardia XL once a day, Atenolol twice a day and Cozaar once a day. I have avoided using a diuretic to control BP in you because you do not drink enough water anyway and a diuretic would get you dehydrated and decrease the kidney function and the blood flow to the brain and decrease the potassium and magnesium and more likely than not increase AF. Look at that....I used a runon sentence to a medical language specialist, shame on me! 4. I think you have sleep apnea. You have been scheduled for a formal sleep study and then you will need to follow up with the lung doctor....Dr. Douglass or Dr. Mcknight. You will likely need to be put on BIPAP or CPAP. 5. Your kidney function is dependent on you drinking enough water daily to prevent dehydration. When you get dehydrated the chronic renal failure gets worse. You need to drink at least 1500 cc's a day (50 oz) a day. 6. We all love you in rehab [place]. You have been a gely to work with and you work very hard. If we can be of any service to you in the future we will be happy to take you back. I hope being home works out for you. If you have any questions after you leave you can call me or the rehab unit. My cell is [phone] and the rehab phone is [phone]. Take care Cortney. Pending Tests on Discharge: none Allergies/Adverse Reactions: Allergies Sulfa (Sulfonamide Antibiotics) Allergy (Verified 06/16/19 17:13) Rash lisinopril Adverse Reaction (Verified 06/16/19 20:15) cough Medications to take at Discharge Multivitamin [Multiple Vitamins] 1 each PO DAILY 09/08/16 Esomeprazole Magnesium [Nexium 24Hr] 20 mg PO QODAY 06/16/19 Sitagliptin Phosphate [Januvia] 50 mg PO DAILY 06/16/19 Aspirin [Aspirin EC] 325 mg PO DAILY 06/30/19 Acetaminophen [Tylenol Tablet] 650 mg PO Q6H PRN PRN tab 07/28/19 Atenolol [Tenormin (beta vick)] 25 mg PO BID #60 tab 07/28/19 Atorvastatin Calcium [Lipitor] 40 mg PO QHS #30 tab 07/28/19 Ferrous Sulfate 325 mg PO DAILY@1200 #30 tab 07/28/19 Glimepiride [Amaryl] 1 mg PO DAILY #30 tab 07/28/19 Losartan Potassium 100 mg PO DAILY #30 tab 07/28/19 Magnesium Oxide [Mag-Ox 400] 400 mg PO DAILYCM #30 tab 07/28/19 Nifedipine [Procardia Xl] 30 mg PO DAILY #30 tab.er.24 07/28/19 Senna/Docusate Sodium [Senokot-S] 2 tab PO BID #120 tab 07/28/19 Sertraline HCl [Zoloft] 50 mg PO DAILY #30 tab 07/28/19 The following prescriptions were given: Glimepiride [Amaryl] 1 mg PO DAILY #30 tab Transmission Status: Received by [facility] Ferrous Sulfate 325 mg PO DAILY@1200 #30 tab Transmission Status: Received by [facility] Atorvastatin Calcium [Lipitor] 40 mg PO QHS #30 tab Transmission Status: Received by [facility] Losartan Potassium 100 mg PO DAILY #30 tab Transmission Status: Received by [facility] Magnesium Oxide [Mag-Ox 400] 400 mg PO DAILYCM #30 tab Transmission Status: Received by [facility] Nifedipine [Procardia Xl] 30 mg PO DAILY #30 tab.er.24 Transmission Status: Received by [facility] Senna/Docusate Sodium [Senokot-S] 2 tab PO BID #120 tab Transmission Status: Received by [facility] Atenolol [Tenormin (beta vick)] 25 mg PO BID #60 tab Transmission Status: Received by [facility] Sertraline HCl [Zoloft] 50 mg PO DAILY #30 tab Transmission Status: Received by [facility] Primary Care Physician: Flavia Aldrich MD [Primary Care Provider] - Please follow up with your Primary Care Physician in: 5-7 days Test Results: Test results from this visit will be discussed in further detail at your follow- up appointment, if applicable. Please Follow Up With: Dr Lanza Please Follow Up With: 30 day heart monitor Please Follow Up With: Sleep study Please Follow Up With: neurology - Dr. Lemus Proposed Discharge Date: 07/29/19
[2019-07-28 16:11] LABS: Bedside Glucose 114 mg/dL (70-110)
[2019-07-28 16:14] VITALS: BMI 44.8
[2019-07-28 19:50] VITALS: PULSE 65; RESP 16; O2SAT 96; BMI 44.8
[2019-07-28] MEDS: Atorvastatin Calcium 40 MG Tablet PO (20:01)
[2019-07-28] MEDS: traZODone 50 MG Tablet PO (20:01)
[2019-07-28 22:00] VITALS: BP 123/58; PULSE 65; RESP 16; TEMP 36.6; O2SAT 96
--- NOTE | 2019-07-29 02:36 | NURSING ---
Reviewed and agree with WOODS SUPERINTENDENT documentation and charting.
[2019-07-29 06:16] LABS: Hematocrit 34.5 % (37-47); Hemoglobin 10.7 g/dL (12.0-15.0); Mean Corpuscular Hgb 29.3 pg (27.0-32.0); Mean Corpuscular Volume 94.5 fL (81-99); Mean Platelet Vol. 9.9 fl (6.2-12.0); Platelet Count 311 K/mm3 (150-450); RBC Distribution Width CV 16.2 % (11.6-14.6); RBC Distribution Width SD 56.5 fl (35.1-43.9); Red Blood Count 3.65 M/mm3 (4.2-5.4); White Blood Count 10.3 K/mm3 (4.4-11.0)
[2019-07-29 06:39] LABS: Anion Gap 6 (5-15); BUN 34 mg/dL (7-18); Calcium,Total 9.7 mg/dL (8.5-10.1); Chloride 105 mmol/L (98-107); Creatinine, Serum 1.36 mg/dL (0.55-1.02); EST Glomerular Filtration Rate 40 mL/min (>60); Est Glom Filt Rate - Afr Amer 49 mL/min (>60); Estimated Creatinine Clearance 26.07 ml/min; Glucose 174 mg/dL (74-106); Phosphorus 4.4 mg/dL (2.5-4.9); Potassium 4.2 mmol/L (3.5-5.1); Sodium Level 138 mmol/L (136-145)
[2019-07-29 06:51] LABS: Bedside Glucose 155 mg/dL (70-110)
[2019-07-29] MEDS: Glimepiride 2 MG Tablet 1 MG PO (07:45)
[2019-07-29] MEDS: Magnesium Oxide 400 MG Tablet PO (07:45)
[2019-07-29] MEDS: Aspirin E.C. 325 MG Tablet PO (07:45)
[2019-07-29] MEDS: Losartan Potassium 100 MG Tablet PO (07:45)
[2019-07-29] MEDS: Heparin Injection 5,000 UNITS/ML Syringe 5000 UNITS SC (07:45)
[2019-07-29] MEDS: Multivitamins,Therapeutic Tablet 1 TABLET PO (07:45)
[2019-07-29] MEDS: Atenolol 25 MG Tablet PO (07:46)
[2019-07-29] MEDS: Senna/Docusate Sodium 1 Tablet 2 TABLET PO (07:46)
[2019-07-29] MEDS: LINAGLIPTIN 5 MG TABLET PO (07:46)
[2019-07-29] MEDS: NIFEdipine 30 MG Tablet PO (07:46)
[2019-07-29] MEDS: Sertraline 50 MG Tablet PO (07:46)
[2019-07-29] MEDS: Menthol/Lanolin/Calamine/Znox 113 GM Tube 1 APPLIC TOPICAL (07:47)
[2019-07-29] MEDS: Nystatin Powder 15gm Bottle 1 APPLIC TOPICAL (07:48)
[2019-07-29 09:20] VITALS: BP 131/65; PULSE 69; RESP 16; TEMP 36.8; O2SAT 96
[2019-07-29] MEDS: Ferrous Sulfate 325 MG Tablet PO (11:40)
[2019-07-29 12:39] VITALS: BMI 44.8
--- NOTE | 2019-07-29 13:27 | PCM.DC.SUM ---
Discharge Date and Diagnosis - Problem List Patient Problems: Active and Suspected Problems Sleep-disordered breathing (Acute) Intertrigo (Acute) Depression (Acute) Physical debility (Acute) Iron deficiency (Acute) Acute ischemic left middle cerebral artery (MCA) stroke (Acute) Cerebrovascular accident involving cerebellum (Acute) R cerebellum due to occlusion of the R vertebral artery Normochromic normocytic anemia (Acute) Date of Admission: 06/30/19 Date of Discharge: 07/29/19 - Primary Discharge Diagnosis Active and Suspected Problems Physical debility due to R cerebellar ischemic CVA initially then after admission to I[facility]U had extension of R cerebellar CVA due to clot in the R vertebral artery and L MCA ischemic CVA(Acute) Presumed to be embolic Acute ischemic left middle cerebral artery (MCA) stroke (Acute) Cerebrovascular accident involving cerebellum (Acute) R cerebellum due to occlusion of the R vertebral artery Normochromic normocytic anemia (Acute) Sleep-disordered breathing (Acute) with hypoxia at night Intertrigo (Acute) Depression (Acute) Iron deficiency (Acute) Urinary tract infection present at admission to the inpatient rehab unit-resolved Paroxysmal atrial fibrillation-suspected - Secondary Discharge Diagnosis Chronic Problems BPPV (benign paroxysmal positional vertigo) (Chronic) Grade II diastolic dysfunction (Chronic) Left atrial enlargement (Chronic) Mild Proteinuria (Chronic) Diabetic nephropathy (Chronic) Diabetes mellitus, type II (Chronic) HTN (hypertension) (Chronic) HLD (hyperlipidemia) (Chronic) GERD (gastroesophageal reflux disease) (Chronic) Morbid obesity with BMI of 40.0-44.9, adult (Chronic) CKD (chronic kidney disease), stage III (Chronic) Hospital Course and Treatment Imaging Results: Laboratory Results - last 24 hr 07/28/19 07/29/19 07/29/19 16:03 05:43 06:05 WBC 10.3 RBC 3.65 L Hgb 10.7 L Hct 34.5 L MCV 94.5 MCH 29.3 MCHC 31.0 L RDW Std Deviation 56.5 H RDW Coeff of Umu 16.2 H Plt Count 311 MPV 9.9 Sodium Potassium Chloride Carbon Dioxide Anion Gap BUN Creatinine Estim Creat Clear Calc Est GFR (MDRD) Af Amer Est GFR (MDRD) Non-Af BUN/Creatinine Ratio Glucose Calcium Phosphorus Magnesium POC Glucose 114 H 155 H 07/29/19 06:05 WBC RBC Hgb Hct MCV MCH MCHC RDW Std Deviation RDW Coeff of Umu Plt Count MPV Sodium 138 Potassium 4.2 Chloride 105 Carbon Dioxide 27.0 Anion Gap 6 BUN 34 H Creatinine 1.36 H Estim Creat Clear Calc 26.07 Est GFR (MDRD) Af Amer 49 L Est GFR (MDRD) Non-Af 40 L BUN/Creatinine Ratio 25.0 H Glucose 174 H Calcium 9.7 Phosphorus 4.4 Magnesium 2.0 POC Glucose Microbiology 07/25/19 10:15 Stool Stool Occult Blood (DANIEL) - Final-negative Operations: None Summary of Care Provided: ] Tracey is a 73-year-old with a past medical history of hypertension, morbid obesity, diabetes mellitus type 2, hyperlipidemia, morbid obesity, GERD, BPPV, chronic renal failure stage III, diastolic dysfunction stage II, mild left atrial enlargement and right cerebellar ischemic infarct who was originally admitted to the inpatient rehab unit at [facility] on 06/19/2019 for debility secondary to right cerebellar infarct. On 06/25/2019 she was very drowsy and less responsive at approximately 10 AM and had new onset of dysarthria and aphasia A stroke alert was called. A noncontrasted CT brain showed a new area of decreased attenuation in the right cerebellar hemisphere suggestive of acute infarction and edema. A CTA of the head and neck showed a luminal clot in the distal portion of the right vertebral artery just proximal to the basilar artery. She was not a candidate for TPA due to the recent R cerebellar infarct. [facility] tele-neurology was consulted and they recommended transfer to [facility] for close monitoring and availability of in-house neurology. MRI of the brain done at [facility] showed an acute left MCA ischemic CVA, most likely due to thrombosis. Aphasia improved while at [facility] but, she had persistent R side weakness arm>leg that was not present at the previous admission to the inpt rehab unit. She was readmitted to the [facility] on 06/30/19 for > 3 hours of therapy daily to return her at or near her prior level of independence with ADL's and driving. Cortney lives by herself. Cortney did very well in therapy and progressed to the point where she could be discharged home on 07/29/2019 rather than an SNF. On 07/28/2019 she was able to ambulate 240 feet with a wheeled walker with standby assist only. She was able to walk up 5 steps using 2 rails with standby assist. Her sister was given the name of a material processor to build rails for her so that she can get into her house. She required moderate assistance for bathing, minimal assistance with upper body dressing and maximum assistance with lower body dressing. She no longer required assistance to get to the edge of the bed or to stand up from the edge of the bed. She is able to get on and off the toilet without assistance. Her sister Norah is able to help Cortney with LE dressing. HHC and DERMATOLOGY PROCEDURAL PHYSICIAN were arranged for help bathing twice a week and ongoing ST/OT/ST. Blood sugars were under excellent control during her time in rehab with oral agents only. All blood sugars were less than 180 and she had no hypoglycemia. Antihypertensives were adjusted as needed to maintain a blood pressure less than 120/80 most of the time. Neurology at [facility] recommends BP < 120/80, HGBA1C <7 and LDL less than 70. Since the ischemic CVA's are thought to be embolic a 30 day event monitor was arranged for the day of DC. She will follow-up with Dr. Barraza going forward. [facility] also recommended a ALONDRA and will defer performance of this test to Dr. Lanza. She had an overnight trending pulse ox while in rehab and she desaturates at night to 67%. Her STOP BANG score puts her at high risk for SOPHIE. She was placed on O2 at 2 LPM anytime she is sleeping. Home O2 and a sleep study were arranged for her prior to DC. She will need to follow up with either Dr. Mcknight or Dr. Douglass after the sleep study. Cortney does not like to drink water and we had to constantly remind her to increase her water intake. The creat waxed and waned from 1.22-1.36 during her second visit to rehab. This is within her baseline. IT varies with the state of hydration. Creatinine clearance on the date of discharge was 26. The estimated GFR is 40 which places her at stage III chronic renal failure. Hyperkalemia has not been a problem. Iron studies were obtained and the ferritin was low at 22. She was started on an iron supplement. Hemoglobin at the time of discharge is stable at 10.7. She will need to have the ferritin rechecked in 4 to 6 weeks and if it is not increasing she would be a candidate for intravenous iron supplementation. Hemoccult stool was negative. Cortney was discharged on 07/28/29 on medications previously listed. She will have a BMP drawn of Sunday by [facility] and the results will be sent to Dr. Aldrich. It may be time to have her see a motor equipment lieutenant 1-2 times a year. She will follow-up with neurology, Dr. Aldrich, the sleep lab, Dr. Barraza and a quality improvement consultant following discharge from inpatient rehab. Alert, appropriate, oriented x3, NAD Lungs-clear to auscultation but diminished, especially in the bases Heart-regular rate and rhythm, no gallop, no rub Abdomen-soft, nontender, nondistended, normal bowel sounds, no guarding with palpation No peripheral edema No calf tenderness persistent weakness of the R side estimated at 3-4/5. She still has some trouble with word finding but she is not slurring and her speech is easily intelligible. Has RUE apraxia that has been improving. No rashes and no breakdown This note was generated with [employer] dictation software. It may contain incorrect words, spelling, and punctuation that were not noted in checking the note before signing. Patient Problems: Active and Suspected Problems Sleep-disordered breathing (Acute) Intertrigo (Acute) Depression (Acute) Physical debility (Acute) Iron deficiency (Acute) Acute ischemic left middle cerebral artery (MCA) stroke (Acute) Cerebrovascular accident involving cerebellum (Acute) R cerebellum due to occlusion of the R vertebral artery Normochromic normocytic anemia (Acute) - Physical Exam Vitals/I&O's: Vital Signs Temp Pulse Resp BP Pulse Ox 98.2 F 69 16 131/65 H 96 07/29/19 09:20 07/29/19 09:20 07/29/19 09:20 07/29/19 09:20 07/29/19 09:20 Oxygen Flow Rate (L/min) 2 Oxygen Delivery Method Room Air Weight: 229 lb 11.547 oz Body Mass Index (BMI) 44.8 Finger Stick Blood Glucose 206 Intake and Output for Last 24 Hours 07/27/19 07/28/19 07/29/19 23:59 23:59 23:59 Intake Total 1060 / 1060 1100 / 1100 Output Total 700 / 700 1000 / 1000 Balance 360 / 360 100 / 100 Laboratory Results 07/28/19 16:03: POC Glucose 114 H 07/29/19 05:43: POC Glucose 155 H 07/29/19 06:05: WBC 10.3, RBC 3.65 L, Hgb 10.7 L, Hct 34.5 L, MCV 94.5, MCH 29.3, MCHC 31.0 L, RDW Std Deviation 56.5 H, RDW Coeff of Umu 16.2 H, Plt Count 311, MPV 9.9 07/29/19 06:05: Sodium 138, Potassium 4.2, Chloride 105, Carbon Dioxide 27.0, Anion Gap 6, BUN 34 H, Creatinine 1.36 H, Estim Creat Clear Calc 26.07, Est GFR (MDRD) Af Amer 49 L, Est GFR (MDRD) Non-Af 40 L, BUN/Creatinine Ratio 25.0 H, Glucose 174 H, Calcium 9.7, Phosphorus 4.4, Magnesium 2.0 Current Medications Acetaminophen (Tylenol) 650 mg PO Q6H PRN PRN PRN Reason: Pain Score 1-10/10 Aspirin (Ecotrin) 325 mg PO DAILY@0800 [facility] Last Admin: 07/29/19 07:45 Dose: 325 mg Documented by: Atenolol (Tenormin (Beta Christel)) 25 mg PO BID [facility] Last Admin: 07/29/19 07:46 Dose: 25 mg Documented by: Atorvastatin Calcium (Lipitor) 40 mg PO QHS [facility] Last Admin: 07/28/19 20:01 Dose: 40 mg Documented by: Bisacodyl (Dulcolax) 10 mg RECTAL .PRN X 1 PRN PRN Reason: Constipation Calamine/Phenol (Calmoseptine Ointment) 1 applic TOPICAL BID [facility]; Protocol Last Admin: 07/29/19 07:47 Dose: 1 applicatio Documented by: Dextrose (D50w Syringe) 0 gm IV X1 PRN; Protocol PRN Reason: Hypoglycemia Ferrous Sulfate (Ferrous Sulfate) 325 mg PO DAILY@1200 [facility] Last Admin: 07/29/19 11:40 Dose: 325 mg Documented by: Glimepiride (Amaryl) 1 mg PO DAILY@0800 [facility] Last Admin: 07/29/19 07:45 Dose: 1 mg Documented by: Glucagon () 1 mg IM .X1 PRN PRN Reason: Hypoglycemia Heparin Sodium (Porcine) () 5,000 units SC BID [facility] Last Admin: 07/29/19 07:45 Dose: 5,000 units Documented by: Linagliptin (Tradjenta) 5 mg PO DAILY [facility] Last Admin: 07/29/19 07:46 Dose: 5 mg Documented by: Losartan Potassium (Cozaar) 100 mg PO DAILY [facility] Last Admin: 07/29/19 07:45 Dose: 100 mg Documented by: Magnesium Hydroxide (Milk Of Magnesia) 30 ml PO .PRN X 1 PRN PRN Reason: Constipation Last Admin: 07/14/19 06:13 Dose: 30 ml Documented by: Magnesium Oxide (Mag-Ox 400) 400 mg PO DAILYCM [facility] Last Admin: 07/29/19 07:45 Dose: 400 mg Documented by: Multivitamins (Multivitamin) 1 tablet PO DAILY@0800 [facility] Last Admin: 07/29/19 07:45 Dose: 1 tablet Documented by: Nifedipine (Procardia Xl) 30 mg PO DAILY [facility] Last Admin: 07/29/19 07:46 Dose: 30 mg Documented by: Nystatin (Mycostatin Powder) 1 applic TOPICAL BID [facility]; Protocol Last Admin: 07/29/19 07:48 Dose: 1 applicatio Documented by: Senna/Docusate Sodium (Senokot-S, Niya-Colace) 2 tablet PO BID [facility] Last Admin: 07/29/19 07:46 Dose: 2 tablet Documented by: Sertraline HCl (Zoloft) 50 mg PO DAILY [facility] Last Admin: 07/29/19 07:46 Dose: 50 mg Documented by: Trazodone HCl (Desyrel) 50 mg PO QHS PRN PRN PRN Reason: INSOMNIA Last Admin: 07/28/19 20:01 Dose: 50 mg Documented by: Discharge Activity: May Not Drive, May Shower Weight Bearing Status: Full weight bearing Keep extremity elevated above heart level: Legs Call your doctor if you observe: Fever of 101 or Higher, Inability to urinate, Inability to have a bowel movement, Shortness of breath, Dizziness, Fainting spells, Swelling in the ankles, Chest pain, Increased palpitations (irregular heartbeat), Calf discomfort, - - inability to get your speech out, difficulty swallowing, increaed weakness on one side and not the other, increased numbbness on one side and not the other Home Medications: Medications to take at Discharge Multivitamin [Multiple Vitamins] 1 each PO DAILY 09/08/16 Esomeprazole Magnesium [Nexium 24Hr] 20 mg PO QODAY 06/16/19 Sitagliptin Phosphate [Januvia] 50 mg PO DAILY 06/16/19 Aspirin [Aspirin EC] 325 mg PO DAILY 06/30/19 Acetaminophen [Tylenol Tablet] 650 mg PO Q6H PRN PRN tab 07/28/19 Atenolol [Tenormin (beta christel)] 25 mg PO BID #60 tab 07/28/19 Atorvastatin Calcium [Lipitor] 40 mg PO QHS #30 tab 07/28/19 Ferrous Sulfate 325 mg PO DAILY@1200 #30 tab 07/28/19 Glimepiride [Amaryl] 1 mg PO DAILY #30 tab 07/28/19 Losartan Potassium 100 mg PO DAILY #30 tab 07/28/19 Magnesium Oxide [Mag-Ox 400] 400 mg PO DAILYCM #30 tab 07/28/19 Nifedipine [Procardia Xl] 30 mg PO DAILY #30 tab.er.24 07/28/19 Senna/Docusate Sodium [Senokot-S] 2 tab PO BID #120 tab 07/28/19 Sertraline HCl [Zoloft] 50 mg PO DAILY #30 tab 07/28/19 Following Prescrptions Were Given to Patient: Glimepiride [Amaryl] 1 mg PO DAILY #30 tab Transmission Status: Received by [facility] Ferrous Sulfate 325 mg PO DAILY@1200 #30 tab Transmission Status: Received by [facility] Atorvastatin Calcium [Lipitor] 40 mg PO QHS #30 tab Transmission Status: Received by [facility] Losartan Potassium 100 mg PO DAILY #30 tab Transmission Status: Received by [facility] Magnesium Oxide [Mag-Ox 400] 400 mg PO DAILYCM #30 tab Transmission Status: Received by [facility] Nifedipine [Procardia Xl] 30 mg PO DAILY #30 tab.er.24 Transmission Status: Received by [facility] Senna/Docusate Sodium [Senokot-S] 2 tab PO BID #120 tab Transmission Status: Received by [facility] Atenolol [Tenormin (beta christel)] 25 mg PO BID #60 tab Transmission Status: Received by [facility] Sertraline HCl [Zoloft] 50 mg PO DAILY #30 tab Transmission Status: Received by [facility] Other Amb Orders: Basic Metabolic Profile (BMP) Time Frame: 08/01/19, Facility: [facility], Location: Home Health Primary Care Physician: Flavia Aldrich MD [Primary Care Provider] - Please follow up with your Primary Care Physician in: 5-7 days Please Follow Up With: Dr Lanza Please Follow Up With: 30 day heart monitor Please Follow Up With: Sleep study Please Follow Up With: neurology - Dr. Lemus Patient Instructions: Stroke Prevention: Using Blood Thinners (Anticoagulants), Iron Supplements, MyPlate Worksheet: 1,600 Calories, ED AFIB Disposition: Home with Home Health Minutes spent on discharge:: 40 Patient Condition:: Good - stable. Needs help with LE dressing and bathing. DERMATOLOGY PROCEDURAL PHYSICIAN and HHC arranged Medical Necessity - Tobacco Use Smoking Status: Never smoker Tobacco Use: Non-smoker Meaningful Use Info Meaningful Use Diagnoses (Choose all that apply): Ischemic CVA - CVA Therapy Assessed for PT,OT and/or ST?: Yes - Ischemic Stroke Antithrombotic order at d/c?: Yes Dx of Atrial fib/flutter?: No Anticoagulant at discharge?: No Reason anticoagulant not ordered: Treatment not Indicated Statins at discharge?: Yes Primary Dx Acute Ischemic CVA?: Yes IV tPA ordered during stay?: No Reason IV t-PA not ordered: Treatment not Indicated Inpatient E&M: [id number] Disch Hosp
[2019-07-29 13:55] VITALS: BP 131/65; PULSE 69; RESP 16; TEMP 36.8; O2SAT 96
--- NOTE | 2019-07-29 13:55 | NURSING ---
Discharge to home. Verbalized understanding to discharge instructions given.
== END 2019-07-29 13:55 | disposition home health service (06) | DRG 57 ==
PROVIDERS: Admitting Provider Internal Medicine; PCP Internal Medicine; Referring Provider Internal Medicine; Visit Provider Internal Medicine
DX: I69.351 Hemiplegia and hemiparesis following cerebral infarction affecting right dominant side (principal); Z68.41 Body mass index [BMI] 40.0-44.9, adult; N39.0 Urinary tract infection, site not specified; I69.320 Aphasia following cerebral infarction; I69.322 Dysarthria following cerebral infarction; E11.22 Type 2 diabetes mellitus with diabetic chronic kidney disease; I12.9 Hypertensive chronic kidney disease with stage 1 through stage 4 chronic kidney disease, or unspecified chronic kidney disease; N18.3 Chronic kidney disease, stage 3 (moderate); K21.9 Gastro-esophageal reflux disease without esophagitis; E78.5 Hyperlipidemia, unspecified; E66.01 Morbid (severe) obesity due to excess calories; L30.4 Erythema intertrigo; F32.9 Major depressive disorder, single episode, unspecified; I69.391 Dysphagia following cerebral infarction; R13.10 Dysphagia, unspecified; I48.0 Paroxysmal atrial fibrillation; Z91.81 History of falling; E86.0 Dehydration; R27.0 Ataxia, unspecified; D50.9 Iron deficiency anemia, unspecified; H81.10 Benign paroxysmal vertigo, unspecified ear; G47.30 Sleep apnea, unspecified
CPT/HCPCS: 36415; 80048; 80053; 82274; 82728; 82962; 83540; 83550; 83735; 84100; 85014; 85018; 85025; 85027; 92507; 92523; 92526; 92610; 94762; 97110; 97112; 97116; 97162; 97167; 97530; 97535; 97802; 97803; 99251; G0463

== ENCOUNTER → 2019-08-01 16:18 | Outpatient (CLI) | payer MEDICARE, SELFPAY ==
[2019-07-29 12:39] VITALS: BMI 44.8
[2019-08-01 17:02] LABS: Anion Gap 7 (5-15); BUN 32 mg/dL (7-18); BUN/Creat Ratio 22.9 RATIO (10-20); Calcium,Total 9.8 mg/dL (8.5-10.1); Chloride 106 mmol/L (98-107); EST Glomerular Filtration Rate 39 mL/min (>60); Est Glom Filt Rate - Afr Amer 47 mL/min (>60); Glucose 150 mg/dL (74-106); Potassium 4.2 mmol/L (3.5-5.1); Sodium Level 140 mmol/L (136-145)
== END ==
PROVIDERS: PCP Internal Medicine; Referring Provider Internal Medicine; Visit Provider Internal Medicine
DX: N18.3 Chronic kidney disease, stage 3 (moderate) (principal)
CPT/HCPCS: 80048

== ENCOUNTER → 2019-08-04 20:00 | Outpatient (CLI) | payer MEDICARE, SELFPAY ==
[2019-07-24 01:05] VITALS: BMI 44.8
[2019-07-29 12:39] VITALS: BMI 44.8
== END ==
PROVIDERS: PCP Internal Medicine; Visit Provider Internal Medicine
DX: G47.10 Hypersomnia, unspecified (principal)
CPT/HCPCS: 95810

== ENCOUNTER 2019-09-25 11:30 | Outpatient (RCR) | payer MEDICARE, SELFPAY ==
[2019-09-04 08:51] VITALS: BP 128/45; PULSE 69; RESP 22; TEMP 36.5; BMI 46.1
[2019-09-04 10:56] VITALS: BP 128/71; PULSE 60; RESP 20; TEMP 35.7; BMI 46.1
--- NOTE | 2019-09-04 16:38 | HP.PCM_ITS ---
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 Current Visit: Yes Code(s): L30.4 - Erythema intertrigo (5) Diabetes mellitus, type II Status: Chronic Current Visit: Yes Code(s): E11.9 - Type 2 diabetes mellitus without complications (6) Morbid obesity with BMI of 40.0-44.9, adult Status: Chronic Current Visit: Yes Code(s): E66.01 - Morbid (severe) obesity due to excess calories; Z68.41 - Body mass index (BMI) 40.0-44.9, adult (7) Physical debility Status: Chronic Current Visit: Yes Code(s): R53.81 - Other malaise History of Present Illness Date of Service: 09/04/19 Chief Complaint: Ulcers ( Buttocks, Abdomen and Breast ) History of Wound: Ms. Keating is a 74yo Who presents to the wound center due to several ulcers. Oldest of which is the left buttock which has been present for at least 6 weeks. Initially noted while she was in a longterm post hospital stay. Has been applying Neosporin without any significant improvement. She currently is at a BMI 46.1 with significant abdominal pannus, noted left-sided ulceration weeks ago. Right inferior breast also said to have been noted some weeks ago. Areas of redness and itching underneath both breasts. She otherwise is at her baseline. Denies chills, fever, nausea or vomiting. Past Medical History Past Medical History: Chronic Problems (Last Reviewed 09/04/19 @ 11:29 by Eliane Dixon) Decubitus ulcer of left buttock, stage 3 (Chronic) Ulcer of abdomen wall with fat layer exposed (Chronic) Skin ulcer of female breast (Chronic) Intertriginous dermatitis associated with moisture (Chronic) Essential hypertension (Chronic) Sleep-disordered breathing (Chronic) Depression (Chronic) Physical debility (Chronic) Iron deficiency (Chronic) Occlusion of right vertebral artery (Chronic) BPPV (benign paroxysmal positional vertigo) (Chronic) Grade II diastolic dysfunction (Chronic) Left atrial enlargement (Chronic) Mild Proteinuria (Chronic) Diabetic nephropathy (Chronic) Diabetes mellitus, type II (Chronic) HLD (hyperlipidemia) (Chronic) GERD (gastroesophageal reflux disease) (Chronic) Morbid obesity with BMI of 40.0-44.9, adult (Chronic) CKD (chronic kidney disease), stage III (Chronic) Surgical History: - - Cataract surgery bilaterally. Allergies/Adverse Reactions: Allergies adhesive tape Allergy (Intermediate, Verified 09/04/19 09:16) Unknown Sulfa (Sulfonamide Antibiotics) Allergy (Verified 09/04/19 09:16) Rash lisinopril Adverse Reaction (Verified 09/04/19 09:16) cough Home Medications: Ambulatory Orders Medication Instructions Recorded Multivitamin [Multiple Vitamins] 1 ea PO DAILY 09/08/16 Sitagliptin Phosphate [Januvia] 50 mg PO DAILY 06/16/19 Atorvastatin Calcium [Lipitor] 40 mg PO QHS #30 tab 07/28/19 Ferrous Sulfate 325 mg PO DAILY@1200 #30 tab 07/28/19 Glimepiride [Amaryl] 1 mg PO DAILY #30 tab 07/28/19 Magnesium Oxide [Mag-Ox 400] 400 mg PO DAILYCM #30 tab 07/28/19 Nifedipine [Procardia Xl] 30 mg PO DAILY #30 tab.er.24 07/28/19 Sertraline HCl [Zoloft] 50 mg PO DAILY #30 tab 07/28/19 aspirin 325 mg tablet,delayed 325 mg PO DAILY 09/01/19 release atenolol 50 mg tablet 50 mg PO DAILY tab 09/01/19 esomeprazole magnesium 20 mg 20 mg PO DAILY cap 09/01/19 capsule,delayed release fish oil-dha-epa 1,200 mg-144 cap PO 09/01/19 mg-216 mg capsule fluticasone propionate 50 2 spray INTRANASAL DAILY 09/01/19 mcg/actuation nasal spray,suspension ibuprofen 200 mg tablet 200 mg PO Q6H PRN 09/01/19 losartan 100 mg tablet 100 mg PO DAILY 09/01/19 sennosides 8.6 mg-docusate sodium 1 tab-cap PO Q OTHER DAY tab 09/01/19 50 mg tablet - Family History Maternal Family History: Family History (Last Reviewed 09/04/19 @ 11:29 by Eliane Dixon) Grandfather Alcoholism Mother Angina at rest Arthritis Diabetes Myocardial infarction, Onset Age: 40 Heart disease Hypertension Sister Arthritis Bleeding disorder Blood clots Non Hodgkin's lymphoma Kidney cysts Osteoporosis Thyroid disorder Diabetes, Heart Disease, Hypertension Paternal Family History: Family History (Last Reviewed 09/04/19 @ 11:29 by Eliane Dixon) Grandfather Alcoholism Mother Angina at rest Arthritis Diabetes Myocardial infarction, Onset Age: 40 Heart disease Hypertension Sister Arthritis Bleeding disorder Blood clots Non Hodgkin's lymphoma Kidney cysts Osteoporosis Thyroid disorder High Cholesterol Smoking Status: Never smoker Review of Systems Constitutional: Denies: Anorexia, Chills, Fever Eyes: Denies: Double vision, Pain, Redness HEENT: Denies: Difficulty Hearing, Difficulty Swallowing, Nasal bleeding Cardiovascular: Denies: Chest Pain, Claudication, Chest Pressure, Chest Tightness Respiratory: Denies: Hemoptysis, Wheezing Gastrointestinal: Denies: Abdominal Pain, Hematemesis, Vomiting Genitourinary: Denies: Hematuria Gynecological: Denies: Vaginal bleeding Skin: Denies: Jaundice - Physical Exam Vital Signs Temp Pulse Resp BP 96.2 F L 60 20 H 128/71 H 09/04/19 10:56 09/04/19 10:56 09/04/19 10:56 09/04/19 10:56 General: Alert, Oriented x3, Cooperative, No apparent distress HEENT: Atraumatic, Normocephalic Oral: Moist Mucosa Neck: Supple Lungs: Normal air movement Abdomen: Non Tender, Obese Extremities: No cyanosis Skin: Ulcer/ Wound Wound Measurements and Assessment WC - Nurse 1 - General Ulcer Measurement Start: 09/04/19 08:51 Freq: Status: Active Protocol: Activity Type Activity Date Activity User E-Sign Co-Sign Detail Recorded Client Recorded Date Recorded By Document 09/04/19 08:51 DL [id number] 09/04/19 09:15 DL Document 09/04/19 10:56 DV [id number] 09/04/19 10:57 DV 09/04/19 09/04/19 08:51 10:56 Wound Center Nurse 1 [Ulcer Assessment] #4- L UPPER BUTTOCK/LOWER BACK -Combined with other wound No No -Current Size (cm) - Length 2 4.5 -Current Size (cm) - Width 2.7 0.2 -Current Size (cm) - Depth 0.2 0.1 -Total Square Cm 5.4 0.90 -Date of Last Picture (Recall this 09/04/19 field) -Photo Taken Yes No -Epithelialization None Present Small 1-33% -Tunneling No No -Undermining/Tunneling No No -Circular Undermining No No -Classification - Thickness Full Thickness without Exposed Support Structure -Exudate Amt Small Small -Exudate Type Serosanguineous Serous -Wound Margin Distinct, Flat & Intact Outline Attached -Granulation Amt None Present (0 Small (1-33%) %) -Granulation Quality Red -Slough/Fibrin Yes Yes -Necrosis Amt Large (67-100%) Small (1-33%) -Necrotic Tissue Type Eschar Adherent Slough -Structure Exposed None/Limited to Skin Breakdown -Texture (Niya-wound Skin Appearance) Assessed No Abnormality, Assessed -Moisture (Niya-wound Skin Appearance Assessed No Abnormality, ) Assessed -Color (Niya-wound Skin Appearance) Assessed, No Abnormality, Erythema Assessed -Temperature (Niya-wound Skin No Abnormality No Abnormality Appearance) (Pt Warm) (Pt Warm) -Tenderness on Palpation (Niya-wound Yes No Skin Appearance) -Ulcer Cleansing Rinsed/ Rinsed/ Irrigated with Irrigated with Saline Saline -Foul Odor after Cleansing No No -Anesthetic Used 5% Lidocaine 4% Lidocaine Gel Solution #3- L PANNUS CLUSTER -Combined with other wound No -Current Size (cm) - Length 4.1 -Current Size (cm) - Width 8.3 -Current Size (cm) - Depth 0.1 -Total Square Cm 34.03 -Date of Last Picture (Recall this 09/04/19 field) -Photo Taken Yes -Epithelialization None Present -Tunneling No -Undermining/Tunneling No -Circular Undermining No -Exudate Amt Small -Exudate Type Serosanguineous -Wound Margin Distinct, Outline Attached -Granulation Amt Small (1-33%) -Granulation Quality [place] -Slough/Fibrin Yes -Necrosis Amt Large (67-100%) -Necrotic Tissue Type Adherent Slough -Texture (Niya-wound Skin Appearance) Assessed, Excoriation -Moisture (Niya-wound Skin Appearance Assessed ) -Color (Niya-wound Skin Appearance) Assessed, Erythema -Temperature (Niya-wound Skin No Abnormality Appearance) (Pt Warm) -Tenderness on Palpation (Niya-wound No Skin Appearance) -Ulcer Cleansing Rinsed/ Irrigated with Saline -Foul Odor after Cleansing No -Anesthetic Used 4% Lidocaine Solution #2- R BREAST CLUSTER -Combined with other wound No -Current Size (cm) - Length 0.4 -Current Size (cm) - Width 5.3 -Current Size (cm) - Depth 0.1 -Total Square Cm 2.12 -Date of Last Picture (Recall this 09/04/19 field) -Photo Taken Yes -Epithelialization None Present -Tunneling No -Undermining/Tunneling No -Circular Undermining No -Exudate Amt Small -Exudate Type Serous -Wound Margin Distinct, Outline Attached -Granulation Amt Small (1-33%) -Granulation Quality [place] -Slough/Fibrin Yes -Necrosis Amt Large (67-100%) -Necrotic Tissue Type Adherent Slough -Texture (Niya-wound Skin Appearance) Assessed, Excoriation, Scarring -Moisture (Niya-wound Skin Appearance Assessed ) -Color (Niya-wound Skin Appearance) Assessed, Erythema -Temperature (Niya-wound Skin No Abnormality Appearance) (Pt Warm) -Tenderness on Palpation (Niya-wound No Skin Appearance) -Ulcer Cleansing Rinsed/ Irrigated with Saline -Foul Odor after Cleansing No -Anesthetic Used 4% Lidocaine Solution #1- L KNEE TRAUMA (FELL OUT OF BED) -Combined with other wound No -Current Size (cm) - Length 0.6 -Current Size (cm) - Width 1.2 -Current Size (cm) - Depth 0.1 -Total Square Cm 0.72 -Date of Last Picture (Recall this 09/04/19 field) -Photo Taken Yes -Epithelialization None Present -Tunneling No -Undermining/Tunneling No -Circular Undermining No -Exudate Amt Small -Exudate Type Serous -Wound Margin Flat & Intact -Granulation Amt Small (1-33%) -Granulation Quality Red -Slough/Fibrin Yes -Necrosis Amt Medium (34-66%) -Necrotic Tissue Type Adherent Slough -Texture (Niya-wound Skin Appearance) Assessed -Moisture (Niya-wound Skin Appearance Assessed ) -Color (Niya-wound Skin Appearance) Assessed, Erythema -Temperature (Niya-wound Skin No Abnormality Appearance) (Pt Warm) -Tenderness on Palpation (Niya-wound No Skin Appearance) -Ulcer Cleansing Rinsed/ Irrigated with Saline -Foul Odor after Cleansing No -Anesthetic Used 4% Lidocaine Solution WC - Nurse 2 - General Ulcer CM Notes Start: 09/04/19 08:51 Freq: Status: Active Protocol: Activity Type Activity Date Activity User E-Sign Co-Sign Detail Recorded Client Recorded Date Recorded By Document 09/04/19 09:42 MW [id number] 09/04/19 09:57 MW 09/04/19 09:42 Wound Center Nurse 2 [Procedure/Treatment] -Time 09:45 -Correct Patient Yes -Correct Side, Site, Position Yes -Correct Procedure Yes -Procedure Performed Yes -Type of Procedure Debridement -Clinical Debridement Subcutaneous -Post Debridement Size (cm) - Length 2.0 -Post Debridement Size (cm) - Width 2.1 -Post Debridement Size (cm) - Depth 0.2 -Total Square Cm 4.20 -Wound/Ulcer Outcome Not Healed -Ulcer Cleansing Rinsed/ Irrigated with Saline -Foul Odor after Cleansing No -Bioengineered Tissue No -Bleeding Controlled with Pressure -Offloading No -Treatment Response Procedure Tolerated Well #3- L PANNUS CLUSTER -Time 09:45 -Correct Patient Yes -Correct Side, Site, Position Yes -Correct Procedure Yes -Procedure Performed Yes -Type of Procedure Debridement -Clinical Debridement Subcutaneous -Post Debridement Size (cm) - Length 3.5 -Post Debridement Size (cm) - Width 6.7 -Post Debridement Size (cm) - Depth 0.1 -Total Square Cm 23.45 -Wound/Ulcer Outcome Not Healed -Ulcer Cleansing Rinsed/ Irrigated with Saline -Foul Odor after Cleansing No -Bioengineered Tissue No -Bleeding Controlled with Pressure -Offloading No -Treatment Response Procedure Tolerated Well #2- R BREAST CLUSTER -Time 09:46 -Correct Patient Yes -Correct Side, Site, Position Yes -Correct Procedure Yes -Procedure Performed Yes -Type of Procedure Debridement -Clinical Debridement Subcutaneous -Post Debridement Size (cm) - Length 0.4 -Post Debridement Size (cm) - Width 3.0 -Post Debridement Size (cm) - Depth 0.1 -Total Square Cm 1.20 -Wound/Ulcer Outcome Not Healed -Ulcer Cleansing Rinsed/ Irrigated with Saline -Foul Odor after Cleansing No -Bioengineered Tissue No -Bleeding Controlled with Pressure -Offloading No -Treatment Response Procedure Tolerated Well #1- L KNEE TRAUMA (FELL OUT OF BED) -Time 09:42 -Correct Patient Yes -Correct Side, Site, Position Yes -Correct Procedure Yes -Procedure Performed No -Post Debridement Size (cm) - Length 0.1 -Post Debridement Size (cm) - Width 0.1 -Post Debridement Size (cm) - Depth 0.1 -Total Square Cm 0.01 -Wound/Ulcer Outcome Not Healed -Ulcer Cleansing Not Cleansed -Foul Odor after Cleansing No -Bioengineered Tissue No -Bleeding Controlled with NA -Offloading No -Treatment Response Procedure Tolerated Well [See Physician Procedure note for Specifics] Pain Scale: 0-10 Numeric [Pain] -Is Patient Pain Free? Yes Musculoskeletal: No Muscle Wasting Psych/Mental Status: Normal Affect Debridement Note Post-Debridement Measurements/Treatment WC - Nurse 2 - General Ulcer CM Notes Start: 09/04/19 08:51 Freq: Status: Active Protocol: Activity Type Activity Date Activity User E-Sign Co-Sign Detail Recorded Client Recorded Date Recorded By Document 09/04/19 09:42 MW [id number] 09/04/19 09:57 MW 09/04/19 09:42 Wound Center Nurse 2 #4- L UPPER BUTTOCK/LOWER BACK -Time 09:45 -Correct Patient Yes -Correct Side, Site, Position Yes -Correct Procedure Yes -Procedure Performed Yes -Type of Procedure Debridement -Clinical Debridement Subcutaneous -Post Debridement Size (cm) - Length 2.0 -Post Debridement Size (cm) - Width 2.1 -Post Debridement Size (cm) - Depth 0.2 -Total Square Cm 4.20 -Wound/Ulcer Outcome Not Healed -Ulcer Cleansing Rinsed/ Irrigated with Saline -Foul Odor after Cleansing No -Bioengineered Tissue No -Bleeding Controlled with Pressure -Offloading No -Treatment Response Procedure Tolerated Well #3- L PANNUS CLUSTER -Time 09:45 -Correct Patient Yes -Correct Side, Site, Position Yes -Correct Procedure Yes -Procedure Performed Yes -Type of Procedure Debridement -Clinical Debridement Subcutaneous -Post Debridement Size (cm) - Length 3.5 -Post Debridement Size (cm) - Width 6.7 -Post Debridement Size (cm) - Depth 0.1 -Total Square Cm 23.45 -Wound/Ulcer Outcome Not Healed -Ulcer Cleansing Rinsed/ Irrigated with Saline -Foul Odor after Cleansing No -Bioengineered Tissue No -Bleeding Controlled with Pressure -Offloading No -Treatment Response Procedure Tolerated Well #2- R BREAST CLUSTER -Time 09:46 -Correct Patient Yes -Correct Side, Site, Position Yes -Correct Procedure Yes -Procedure Performed Yes -Type of Procedure Debridement -Clinical Debridement Subcutaneous -Post Debridement Size (cm) - Length 0.4 -Post Debridement Size (cm) - Width 3.0 -Post Debridement Size (cm) - Depth 0.1 -Total Square Cm 1.20 -Wound/Ulcer Outcome Not Healed -Ulcer Cleansing Rinsed/ Irrigated with Saline -Foul Odor after Cleansing No -Bioengineered Tissue No -Bleeding Controlled with Pressure -Offloading No -Treatment Response Procedure Tolerated Well #1- L KNEE TRAUMA (FELL OUT OF BED) -Time 09:42 -Correct Patient Yes -Correct Side, Site, Position Yes -Correct Procedure Yes -Procedure Performed No -Post Debridement Size (cm) - Length 0.1 -Post Debridement Size (cm) - Width 0.1 -Post Debridement Size (cm) - Depth 0.1 -Total Square Cm 0.01 -Wound/Ulcer Outcome Not Healed -Ulcer Cleansing Not Cleansed -Foul Odor after Cleansing No -Bioengineered Tissue No -Bleeding Controlled with NA -Offloading No -Treatment Response Procedure Tolerated Well Pain Scale: 0-10 Numeric Is Patient Pain Free? Yes Wound debrided: Left Buttock Wound Grade/Stage: Stage III Type of Debridement: Excisional debridement Anesthesia Used: 4% Lidocaine Solution Depth: Down to and including healthy tissue, in the subcutaneous layer Percentage of wound debrided: 100 Instrument Used: 5mm curette Tissue Removed: Slough and devitalized tissue Severity: Fat Layer Exposed Amount of bleeding with debridement: Mild Bleeding Controlled with: Pressure Patient tolerated procedure well - Additional Wound Wound debrided: Left lower abdomen Type of Debridement: Excisional debridement Anesthesia Used: 4% Lidocaine Solution Depth: Down to and including healthy tissue, in the subcutaneous layer Percentage of wound debrided: 100 Instrument Used: 5mm curette Tissue Removed: Slough and devitalized tissue Severity: Fat Layer Exposed Amount of bleeding with debridement: Mild Bleeding Controlled with: Pressure Patient tolerated procedure: Patient tolerated procedure well - Additional Wound Wound debrided: Right Breast ( Chest wall ) Type of Debridement: Excisional debridement Anesthesia Used: 4% Lidocaine Solution Depth: Down to and including healthy tissue, in the subcutaneous layer Percentage of wound debrided: 100 Instrument Used: 3mm curette Tissue Removed: Slough and devitalized tissue Severity: Fat Layer Exposed Amount of bleeding with debridement: Mild Bleeding Controlled with: Pressure Patient tolerated procedure: Patient tolerated procedure well Assessment/Plan Active Problems (Last Reviewed 09/04/19 @ 11:29 by Eliane Dixon) Decubitus ulcer of left buttock, stage 3 (Chronic) Ulcer of abdomen wall with fat layer exposed (Chronic) Skin ulcer of female breast (Chronic) Intertriginous dermatitis associated with moisture (Chronic) Physical debility (Chronic) Diabetes mellitus, type II (Chronic) Morbid obesity with BMI of 40.0-44.9, adult (Chronic) Assessment: Same as above. Plan: Debridement done as documented above. Procedure was well-tolerated. Significant areas of dermatitis intertrigo under both breasts. Pomogran to ulcerated area under the right breast and nystatin powder to other areas (Left and Right ). Nystatin powder also to abdominal pannus. Due to significant slough and lower abdominal and left decubitus ulcer, will start Santyl. Change daily. Offloading recommended. Patient states that she will think about a hospital bed low loss air mattress, this was strongly recommended. Increase protein intake and optimal diabetes control also recommended. Will get records/ recent labs from the [facility]. Her questions were answered and she was advised to call with any further questions or concerns. Follow-up in a week. This note was generated with [employer] dictation software. It may contain incorrect words, spelling, and punctuation that were not noted in checking the note before signing. Multi Select Codes - Visit Charges Office Visit/Consults: 47586 OV L4 Est - Integumentary Integumentary CPT Codes: 24259 [place] subq tissue 20 sq cm/< - Additional square centimeters debrided, please refer to clinical note.
[2019-09-11 12:48] VITALS: BP 120/43; PULSE 68; RESP 18; TEMP 36.8; BMI 46.1
--- NOTE | 2019-09-11 18:59 | PN.PCM_ITS ---
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 Current Visit: Yes Code(s): L30.4 - Erythema intertrigo (5) Diabetes mellitus, type II Status: Chronic Current Visit: Yes Code(s): E11.9 - Type 2 diabetes mellitus without complications (6) Morbid obesity with BMI of 40.0-44.9, adult Status: Chronic Current Visit: Yes Code(s): E66.01 - Morbid (severe) obesity due to excess calories; Z68.41 - Body mass index (BMI) 40.0-44.9, adult (7) Physical debility Status: Chronic Current Visit: Yes Code(s): R53.81 - Other malaise (8) 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 Keating is a 74yo Who presents to the wound center due to several ulcers. Oldest of which is the left buttock which has been present for at least 6 weeks. Initially noted while she was in a senior care post hospital stay. Has been applying Neosporin without any significant improvement. She currently is at a BMI 46.1 with significant abdominal pannus, noted left-sided ulceration weeks ago. Right inferior breast also said to have been noted some weeks ago. Areas of redness and itching underneath both breasts. She otherwise is at her baseline. Denies chills, fever, nausea or vomiting. Progress of Wound: No significant concerns. Some improvement noted. - Physical Exam Vital Signs Temp Pulse Resp BP 98.2 F 68 18 120/43 L 09/11/19 12:48 09/11/19 12:48 09/11/19 12:48 09/11/19 12:48 General: Alert, Oriented x3, Cooperative, No apparent distress HEENT: Atraumatic, Normocephalic Oral: Moist Mucosa Neck: Supple Lungs: Normal air movement Abdomen: Non Tender, Obese Extremities: No cyanosis Skin: Ulcer/ Wound Wound Measurements and Assessment WC - Nurse 1 - General Ulcer Measurement Start: 09/04/19 08:51 Freq: Status: Active Protocol: Activity Type Activity Date Activity User E-Sign Co-Sign Detail Recorded Client Recorded Date Recorded By Document 09/11/19 12:48 DV [id number] 09/11/19 13:01 DV 09/11/19 12:48 Wound Center Nurse 1 [Ulcer Assessment] #4- L UPPER BUTTOCK/LOWER BACK -Combined with other wound No -Photo Taken No -Epithelialization None Present -Tunneling No -Undermining/Tunneling No -Circular Undermining No -Classification - Thickness Full Thickness without Exposed Support Structure #3- L PANNUS CLUSTER -Combined with other wound No -Current Size (cm) - Length 5.6 -Current Size (cm) - Width 4.2 -Current Size (cm) - Depth 0.1 -Total Square Cm 23.52 -Photo Taken No -Epithelialization None Present -Tunneling No -Undermining/Tunneling No -Circular Undermining No -Classification - Thickness Full Thickness without Exposed Support Structure -Exudate Amt Medium -Exudate Type Serous -Wound Margin Flat & Intact -Granulation Amt None Present (0 %) -Granulation Quality N/A -Slough/Fibrin No -Necrosis Amt Medium (34-66%) -Necrotic Tissue Type Adherent Slough -Structure Exposed None/Limited to Skin Breakdown -Texture (Niya-wound Skin Appearance) Assessed,Rash -Moisture (Niya-wound Skin Appearance Assessed, ) Weeping -Color (Niya-wound Skin Appearance) Assessed, Erythema -Temperature (Niya-wound Skin No Abnormality Appearance) (Pt Warm) -Tenderness on Palpation (Niya-wound Yes Skin Appearance) -Ulcer Cleansing Rinsed/ Irrigated with Saline -Foul Odor after Cleansing No -Anesthetic Used 4% Lidocaine Solution #2- R BREAST CLUSTER -Combined with other wound No -Current Size (cm) - Length 1.0 -Current Size (cm) - Width 0.3 -Current Size (cm) - Depth 0.1 -Total Square Cm 0.30 -Photo Taken No -Epithelialization None Present -Tunneling No -Undermining/Tunneling No -Circular Undermining No -Classification - Thickness Full Thickness without Exposed Support Structure -Exudate Amt Small -Exudate Type Serosanguineous -Wound Margin Indistinct, Non -Visible -Granulation Amt None Present (0 %) -Granulation Quality N/A -Slough/Fibrin Yes -Necrosis Amt Medium (34-66%) -Necrotic Tissue Type Adherent Slough -Structure Exposed None/Limited to Skin Breakdown -Texture (Niya-wound Skin Appearance) Assessed -Moisture (Niya-wound Skin Appearance No Abnormality, ) Assessed -Color (Niya-wound Skin Appearance) No Abnormality, Assessed -Temperature (Niya-wound Skin No Abnormality Appearance) (Pt Warm) -Tenderness on Palpation (Niya-wound No Skin Appearance) -Ulcer Cleansing Rinsed/ Irrigated with Saline -Foul Odor after Cleansing No -Anesthetic Used 4% Lidocaine Solution #1- L KNEE TRAUMA (FELL OUT OF BED) -Combined with other wound No -Current Size (cm) - Length 1.1 -Current Size (cm) - Width 0.1 -Current Size (cm) - Depth 0.1 -Total Square Cm 0.11 -Photo Taken No -Epithelialization None Present -Tunneling No -Undermining/Tunneling No -Circular Undermining No -Classification - Thickness Full Thickness without Exposed Support Structure -Exudate Amt Small -Exudate Type Serous -Wound Margin Flat & Intact -Granulation Amt None Present (0 %) -Granulation Quality N/A -Slough/Fibrin Yes -Necrosis Amt Small (1-33%) -Necrotic Tissue Type Adherent Slough -Structure Exposed None/Limited to Skin Breakdown -Texture (Niya-wound Skin Appearance) No Abnormality, Assessed -Moisture (Niya-wound Skin Appearance No Abnormality, ) Assessed -Color (Niya-wound Skin Appearance) No Abnormality, Assessed -Temperature (Niya-wound Skin No Abnormality Appearance) (Pt Warm) -Tenderness on Palpation (Niya-wound No Skin Appearance) -Ulcer Cleansing Rinsed/ Irrigated with Saline -Foul Odor after Cleansing No -Anesthetic Used 4% Lidocaine Solution WC - Nurse 2 - General Ulcer CM Notes Start: 09/04/19 08:51 Freq: Status: Active Protocol: Activity Type Activity Date Activity User E-Sign Co-Sign Detail Recorded Client Recorded Date Recorded By Document 09/11/19 13:09 MW [id number] 09/11/19 13:22 MW 09/11/19 13:09 Wound Center Nurse 2 [Procedure/Treatment] #4- L UPPER BUTTOCK/LOWER BACK -Time 13:10 -Correct Patient Yes -Correct Side, Site, Position Yes -Correct Procedure Yes -Procedure Performed Yes -Type of Procedure Debridement -Clinical Debridement Subcutaneous -Post Debridement Size (cm) - Length 1.6 -Post Debridement Size (cm) - Width 2.0 -Post Debridement Size (cm) - Depth 0.1 -Total Square Cm 3.20 -Wound/Ulcer Outcome Not Healed -Ulcer Cleansing Rinsed/ Irrigated with Saline -Foul Odor after Cleansing No -Bioengineered Tissue No -Bleeding Controlled with Pressure -Offloading No -Treatment Response Procedure Tolerated Well #3- L PANNUS CLUSTER -Time 13:11 -Correct Patient Yes -Correct Side, Site, Position Yes -Correct Procedure Yes -Procedure Performed Yes -Type of Procedure Debridement -Clinical Debridement Subcutaneous -Post Debridement Size (cm) - Length 1.0 -Post Debridement Size (cm) - Width 5.8 -Post Debridement Size (cm) - Depth 0.1 -Total Square Cm 5.80 -Wound/Ulcer Outcome Not Healed -Ulcer Cleansing Rinsed/ Irrigated with Saline -Foul Odor after Cleansing No -Bioengineered Tissue No -Bleeding Controlled with Pressure -Offloading No -Treatment Response Procedure Tolerated Well #2- R BREAST CLUSTER -Time 13:17 -Correct Patient Yes -Correct Side, Site, Position Yes -Correct Procedure Yes -Procedure Performed Yes -Type of Procedure Debridement -Clinical Debridement Subcutaneous -Post Debridement Size (cm) - Length 0.3 -Post Debridement Size (cm) - Width 0.6 -Post Debridement Size (cm) - Depth 0.1 -Total Square Cm 0.18 -Wound/Ulcer Outcome Not Healed -Ulcer Cleansing Rinsed/ Irrigated with Saline -Foul Odor after Cleansing No -Bioengineered Tissue No -Bleeding Controlled with Pressure -Offloading No -Treatment Response Procedure Tolerated Well #1- L KNEE TRAUMA (FELL OUT OF BED) -Time 13:14 -Correct Patient Yes -Correct Side, Site, Position Yes -Correct Procedure Yes -Procedure Performed Yes -Type of Procedure Debridement -Clinical Debridement Subcutaneous -Post Debridement Size (cm) - Length 0.4 -Post Debridement Size (cm) - Width 1.0 -Post Debridement Size (cm) - Depth 0.1 -Total Square Cm 0.40 -Wound/Ulcer Outcome Not Healed -Ulcer Cleansing Rinsed/ Irrigated with Saline -Foul Odor after Cleansing No -Bioengineered Tissue No -Bleeding Controlled with Pressure -Offloading No -Treatment Response Procedure Tolerated Well [See Physician Procedure note for Specifics] Pain Scale: 0-10 Numeric [Pain] -Is Patient Pain Free? Yes Neurological: Cranial nerves II-XII grossly intact Psych/Mental Status: Normal Affect Debridement Note Post-Debridement Measurements/Treatment WC - Nurse 2 - General Ulcer CM Notes Start: 09/04/19 08:51 Freq: Status: Active Protocol: Activity Type Activity Date Activity User E-Sign Co-Sign Detail Recorded Client Recorded Date Recorded By Document 09/04/19 09:42 MW [id number] 09/04/19 09:57 MW Document 09/11/19 13:09 MW [id number] 09/11/19 13:22 MW 09/04/19 09/11/19 09:42 13:09 Wound Center Nurse 2 #4- L UPPER BUTTOCK/LOWER BACK -Time 09:45 13:10 -Correct Patient Yes Yes -Correct Side, Site, Position Yes Yes -Correct Procedure Yes Yes -Procedure Performed Yes Yes -Type of Procedure Debridement Debridement -Clinical Debridement Subcutaneous Subcutaneous -Post Debridement Size (cm) - Length 2.0 1.6 -Post Debridement Size (cm) - Width 2.1 2.0 -Post Debridement Size (cm) - Depth 0.2 0.1 -Total Square Cm 4.20 3.20 -Wound/Ulcer Outcome Not Healed Not Healed -Ulcer Cleansing Rinsed/ Rinsed/ Irrigated with Irrigated with Saline Saline -Foul Odor after Cleansing No No -Bioengineered Tissue No No -Bleeding Controlled with Pressure Pressure -Offloading No No -Treatment Response Procedure Procedure Tolerated Well Tolerated Well #3- L PANNUS CLUSTER -Time 09:45 13:11 -Correct Patient Yes Yes -Correct Side, Site, Position Yes Yes -Correct Procedure Yes Yes -Procedure Performed Yes Yes -Type of Procedure Debridement Debridement -Clinical Debridement Subcutaneous Subcutaneous -Post Debridement Size (cm) - Length 3.5 1.0 -Post Debridement Size (cm) - Width 6.7 5.8 -Post Debridement Size (cm) - Depth 0.1 0.1 -Total Square Cm 23.45 5.80 -Wound/Ulcer Outcome Not Healed Not Healed -Ulcer Cleansing Rinsed/ Rinsed/ Irrigated with Irrigated with Saline Saline -Foul Odor after Cleansing No No -Bioengineered Tissue No No -Bleeding Controlled with Pressure Pressure -Offloading No No -Treatment Response Procedure Procedure Tolerated Well Tolerated Well #2- R BREAST CLUSTER -Time 09:46 13:17 -Correct Patient Yes Yes -Correct Side, Site, Position Yes Yes -Correct Procedure Yes Yes -Procedure Performed Yes Yes -Type of Procedure Debridement Debridement -Clinical Debridement Subcutaneous Subcutaneous -Post Debridement Size (cm) - Length 0.4 0.3 -Post Debridement Size (cm) - Width 3.0 0.6 -Post Debridement Size (cm) - Depth 0.1 0.1 -Total Square Cm 1.20 0.18 -Wound/Ulcer Outcome Not Healed Not Healed -Ulcer Cleansing Rinsed/ Rinsed/ Irrigated with Irrigated with Saline Saline -Foul Odor after Cleansing No No -Bioengineered Tissue No No -Bleeding Controlled with Pressure Pressure -Offloading No No -Treatment Response Procedure Procedure Tolerated Well Tolerated Well #1- L KNEE TRAUMA (FELL OUT OF BED) -Time 09:42 13:14 -Correct Patient Yes Yes -Correct Side, Site, Position Yes Yes -Correct Procedure Yes Yes -Procedure Performed No Yes -Type of Procedure Debridement -Clinical Debridement Subcutaneous -Post Debridement Size (cm) - Length 0.1 0.4 -Post Debridement Size (cm) - Width 0.1 1.0 -Post Debridement Size (cm) - Depth 0.1 0.1 -Total Square Cm 0.01 0.40 -Wound/Ulcer Outcome Not Healed Not Healed -Ulcer Cleansing Not Cleansed Rinsed/ Irrigated with Saline -Foul Odor after Cleansing No No -Bioengineered Tissue No No -Bleeding Controlled with NA Pressure -Offloading No No -Treatment Response Procedure Procedure Tolerated Well Tolerated Well Pain Scale: 0-10 Numeric Is Patient Pain Free? Yes Yes Wound debrided: Left buttock Wound Grade/Stage: Stage III Type of Debridement: Excisional debridement Anesthesia Used: 4% Lidocaine Solution Depth: Down to and including healthy tissue, in the subcutaneous layer Percentage of wound debrided: 100 Instrument Used: 5mm curette Tissue Removed: Slough and devitalized tissue Severity: Fat Layer Exposed Amount of bleeding with debridement: Mild Bleeding Controlled with: Pressure Patient tolerated procedure well - Additional Wound Wound debrided: Left knee Type of Debridement: Excisional debridement Anesthesia Used: 4% Lidocaine Solution Depth: Down to and including healthy tissue, in the subcutaneous layer Percentage of wound debrided: 100 Instrument Used: 3mm curette Tissue Removed: Slough and devitalized tissue Severity: Fat Layer Exposed Amount of bleeding with debridement: Mild Bleeding Controlled with: Pressure Patient tolerated procedure: Patient tolerated procedure well - Additional Wound Wound debrided: Left lower abdomen cluster Type of Debridement: Excisional debridement Anesthesia Used: 4% Lidocaine Solution Depth: Down to and including healthy tissue, in the subcutaneous layer Percentage of wound debrided: 100 Instrument Used: 3mm curette Tissue Removed: Slough and devitalized tissue Severity: Fat Layer Exposed Amount of bleeding with debridement: Mild Bleeding Controlled with: Pressure Patient tolerated procedure: Patient tolerated procedure well - Additional Wound Wound debrided: Right inferior breast Type of Debridement: Excisional debridement Anesthesia Used: 4% Lidocaine Solution Depth: Down to and including healthy tissue, in the subcutaneous layer Percentage of wound debrided: 100 Tissue Removed: Slough and devitalized tissue Severity: Fat Layer Exposed Amount of bleeding with debridement: Mild Bleeding Controlled with: Pressure Patient tolerated procedure: Patient tolerated procedure well Assessment/Plan Active Problems (Last Reviewed 09/09/19 @ 11:[address] 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 Plan: Debridement done as documented above. Procedure was well-tolerated. Areas of ulceration and intertrigo improving. Continue Santyl to the left buttock and Promogran to all other ulcers. Continue Nystatin powder also to abdominal pannus and under breast area. Patient states that she will think about a hospital bed low loss air mattress, this was strongly recommended. Increase protein intake and optimal diabetes control also recommended. Her questions were answered and she was advised to call with any further questions or concerns. Follow-up in a week. This note was generated with pickrset dictation software. It may contain incorrect words, spelling, and punctuation that were not noted in checking the note before signing. [id number]: [id number] Shiloh subq tissue 20 sq cm/<
[2019-09-25 11:33] VITALS: BP 121/56; PULSE 65; RESP 18; TEMP 36.3; BMI 46.1
--- NOTE | 2019-09-25 13:42 | PN.PCM_ITS ---
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 Current Visit: Yes Code(s): L30.4 - Erythema intertrigo (5) Diabetes mellitus, type II Status: Chronic Current Visit: Yes Code(s): E11.9 - Type 2 diabetes mellitus without complications (6) Morbid obesity with BMI of 40.0-44.9, adult Status: Chronic Current Visit: Yes Code(s): E66.01 - Morbid (severe) obesity due to excess calories; Z68.41 - Body mass index (BMI) 40.0-44.9, adult (7) Physical debility Status: Chronic Current Visit: Yes Code(s): R53.81 - Other malaise (8) Skin ulcer of left knee with fat layer exposed Status: Chronic Current Visit: Yes Code(s): L97.822 - Non-pressure chronic ulcer of other part of left lower leg with fat layer exposed Type of Wound Date of Service: 09/25/19 Chief Complaint: Ulcers ( Buttocks, Abdomen and Breast ) History of Wound: Ms. Keating is a 74yo Who presents to the wound center due to several ulcers. Oldest of which is the left buttock which has been present for at least 6 weeks. Initially noted while she was in a [facility] post hospital stay. Has been applying Neosporin without any significant improvement. She currently is at a BMI 46.1 with significant abdominal pannus, noted left-sided ulceration weeks ago. Right inferior breast also said to have been noted some weeks ago. Areas of redness and itching underneath both breasts. She otherwise is at her baseline. Denies chills, fever, nausea or vomiting. Progress of Wound: No significant concerns. Right breast and left knee is healed. Left pannus with some improvement. - Physical Exam Vital Signs Temp Pulse Resp BP 97.3 F L 65 18 121/56 H 09/25/19 11:33 09/25/19 11:33 09/25/19 11:33 09/25/19 11:33 General: Alert, Oriented x3, Cooperative, No apparent distress HEENT: Atraumatic, Normocephalic Oral: Moist Mucosa Neck: Supple Lungs: Normal air movement Abdomen: Non Tender, Obese Extremities: No cyanosis Skin: Ulcer/ Wound Wound Measurements and Assessment WC - Nurse 1 - General Ulcer Measurement Start: 09/04/19 08:51 Freq: Status: Active Protocol: Activity Type Activity Date Activity User E-Sign Co-Sign Detail Recorded Client Recorded Date Recorded By Document 09/25/19 11:33 [facility] [id number] 09/25/19 11:39 [facility] 09/25/19 11:33 Wound Center Nurse 1 [Ulcer Assessment] #4- L UPPER BUTTOCK/LOWER BACK -Combined with other wound No -Current Size (cm) - Length 1.2 -Current Size (cm) - Width 2 -Current Size (cm) - Depth 0.2 -Total Square Cm 2.4 -Photo Taken No -Epithelialization None Present -Tunneling No -Undermining/Tunneling No -Circular Undermining No -Exudate Amt Small -Exudate Type Serosanguineous -Wound Margin Thickened -Granulation Amt None Present (0 %) -Slough/Fibrin Yes -Necrosis Amt Large (67-100%) -Necrotic Tissue Type Adherent Slough -Texture (Niya-wound Skin Appearance) Assessed, Scarring -Moisture (Niya-wound Skin Appearance Assessed ) -Color (Niya-wound Skin Appearance) Assessed, Erythema -Temperature (Niya-wound Skin No Abnormality Appearance) (Pt Warm) -Tenderness on Palpation (Niya-wound Yes Skin Appearance) -Ulcer Cleansing Rinsed/ Irrigated with Saline -Foul Odor after Cleansing No -Anesthetic Used 4% Lidocaine Solution #3- L PANNUS CLUSTER -Combined with other wound No -Current Size (cm) - Length 0.1 -Current Size (cm) - Width 0.1 -Current Size (cm) - Depth 0.1 -Total Square Cm 0.01 -Epithelialization Large 67-100% #2- R BREAST CLUSTER -Combined with other wound No -Current Size (cm) - Length 0.1 -Current Size (cm) - Width 0.1 -Current Size (cm) - Depth 0.1 -Total Square Cm 0.01 -Epithelialization Large 67-100% #1- L KNEE TRAUMA (FELL OUT OF BED) -Combined with other wound No -Current Size (cm) - Length 0.1 -Current Size (cm) - Width 0.1 -Current Size (cm) - Depth 0.1 -Total Square Cm 0.01 -Epithelialization Large 67-100% WC - Nurse 2 - General Ulcer CM Notes Start: 09/04/19 08:51 Freq: Status: Active Protocol: Activity Type Activity Date Activity User E-Sign Co-Sign Detail Recorded Client Recorded Date Recorded By Document 09/25/19 11:52 DV [id number] 09/25/19 11:59 DV 09/25/19 11:52 Wound Center Nurse 2 [Procedure/Treatment] #4- L UPPER BUTTOCK/LOWER BACK -Time 11:56 -Correct Patient Yes -Correct Side, Site, Position Yes -Correct Procedure Yes -Procedure Performed Yes -Type of Procedure Debridement -Clinical Debridement Subcutaneous -Post Debridement Size (cm) - Length 1.2 -Post Debridement Size (cm) - Width 1.5 -Post Debridement Size (cm) - Depth 0.2 -Total Square Cm 1.80 -Wound/Ulcer Outcome Not Healed -Ulcer Cleansing Rinsed/ Irrigated with Saline -Foul Odor after Cleansing No -Bioengineered Tissue No -Bleeding Controlled with Pressure -Offloading No -Treatment Response Procedure Tolerated Well #3- L PANNUS CLUSTER -Time 11:55 -Correct Patient Yes -Correct Side, Site, Position Yes -Correct Procedure Yes -Procedure Performed Yes -Type of Procedure Debridement -Clinical Debridement Subcutaneous -Post Debridement Size (cm) - Length 0.5 -Post Debridement Size (cm) - Width 0.7 -Post Debridement Size (cm) - Depth 0.1 -Total Square Cm 0.35 -Wound/Ulcer Outcome Not Healed -Ulcer Cleansing Rinsed/ Irrigated with Saline -Foul Odor after Cleansing No -Bioengineered Tissue No -Bleeding Controlled with Pressure -Offloading No -Treatment Response Procedure Tolerated Well #2- R BREAST CLUSTER -Time 11:54 -Correct Patient Yes -Correct Side, Site, Position Yes -Correct Procedure Yes -Procedure Performed Yes -Type of Procedure Debridement -Clinical Debridement Subcutaneous -Post Debridement Size (cm) - Length 0.1 -Post Debridement Size (cm) - Width 0.1 -Post Debridement Size (cm) - Depth 0.1 -Total Square Cm 0.01 -Wound/Ulcer Outcome Not Healed -Bleeding Controlled with NA -Offloading No -Treatment Response Procedure Tolerated Well #1- L KNEE TRAUMA (FELL OUT OF BED) -Time 11:53 -Correct Patient Yes -Correct Side, Site, Position Yes -Correct Procedure No -Procedure Performed No -Post Debridement Size (cm) - Length 0 -Post Debridement Size (cm) - Width 0 -Post Debridement Size (cm) - Depth 0 -Total Square Cm 0 -Wound/Ulcer Outcome Healed- Epithelialized [See Physician Procedure note for Specifics] Pain Scale: 0-10 Numeric [Pain] -Is Patient Pain Free? Yes Musculoskeletal: No Muscle Wasting Neurological: Cranial nerves II-XII grossly intact Psych/Mental Status: Normal Affect Debridement Note Post-Debridement Measurements/Treatment WC - Nurse 2 - General Ulcer CM Notes Start: 09/04/19 08:51 Freq: Status: Active Protocol: Activity Type Activity Date Activity User E-Sign Co-Sign Detail Recorded Client Recorded Date Recorded By Document 09/04/19 09:42 MW [id number] 09/04/19 09:57 MW Document 09/11/19 13:09 MW [id number] 09/11/19 13:22 MW Document 09/25/19 11:52 DV [id number] 09/25/19 11:59 DV 09/04/19 09/11/19 09/25/19 09:42 13:09 11:52 Wound Center Nurse 2 #4- L UPPER BUTTOCK/LOWER BACK -Time 09:45 13:10 11:56 -Correct Patient Yes Yes Yes -Correct Side, Site, Position Yes Yes Yes -Correct Procedure Yes Yes Yes -Procedure Performed Yes Yes Yes -Type of Procedure Debridement Debridement Debridement -Clinical Debridement Subcutaneous Subcutaneous Subcutaneous -Post Debridement Size (cm) - Length 2.0 1.6 1.2 -Post Debridement Size (cm) - Width 2.1 2.0 1.5 -Post Debridement Size (cm) - Depth 0.2 0.1 0.2 -Total Square Cm 4.20 3.20 1.80 -Wound/Ulcer Outcome Not Healed Not Healed Not Healed -Ulcer Cleansing Rinsed/ Rinsed/ Rinsed/ Irrigated with Irrigated with Irrigated with Saline Saline Saline -Foul Odor after Cleansing No No No -Bioengineered Tissue No No No -Bleeding Controlled with Pressure Pressure Pressure -Offloading No No No -Treatment Response Procedure Procedure Procedure Tolerated Well Tolerated Well Tolerated Well #3- L PANNUS CLUSTER -Time 09:45 13:11 11:55 -Correct Patient Yes Yes Yes -Correct Side, Site, Position Yes Yes Yes -Correct Procedure Yes Yes Yes -Procedure Performed Yes Yes Yes -Type of Procedure Debridement Debridement Debridement -Clinical Debridement Subcutaneous Subcutaneous Subcutaneous -Post Debridement Size (cm) - Length 3.5 1.0 0.5 -Post Debridement Size (cm) - Width 6.7 5.8 0.7 -Post Debridement Size (cm) - Depth 0.1 0.1 0.1 -Total Square Cm 23.45 5.80 0.35 -Wound/Ulcer Outcome Not Healed Not Healed Not Healed -Ulcer Cleansing Rinsed/ Rinsed/ Rinsed/ Irrigated with Irrigated with Irrigated with Saline Saline Saline -Foul Odor after Cleansing No No No -Bioengineered Tissue No No No -Bleeding Controlled with Pressure Pressure Pressure -Offloading No No No -Treatment Response Procedure Procedure Procedure Tolerated Well Tolerated Well Tolerated Well #2- R BREAST CLUSTER -Time 09:46 13:17 11:54 -Correct Patient Yes Yes Yes -Correct Side, Site, Position Yes Yes Yes -Correct Procedure Yes Yes Yes -Procedure Performed Yes Yes Yes -Type of Procedure Debridement Debridement Debridement -Clinical Debridement Subcutaneous Subcutaneous Subcutaneous -Post Debridement Size (cm) - Length 0.4 0.3 0.1 -Post Debridement Size (cm) - Width 3.0 0.6 0.1 -Post Debridement Size (cm) - Depth 0.1 0.1 0.1 -Total Square Cm 1.20 0.18 0.01 -Wound/Ulcer Outcome Not Healed Not Healed Not Healed -Ulcer Cleansing Rinsed/ Rinsed/ Irrigated with Irrigated with Saline Saline -Foul Odor after Cleansing No No -Bioengineered Tissue No No -Bleeding Controlled with Pressure Pressure NA -Offloading No No No -Treatment Response Procedure Procedure Procedure Tolerated Well Tolerated Well Tolerated Well #1- L KNEE TRAUMA (FELL OUT OF BED) -Time 09:42 13:14 11:53 -Correct Patient Yes Yes Yes -Correct Side, Site, Position Yes Yes Yes -Correct Procedure Yes Yes No -Procedure Performed No Yes No -Type of Procedure Debridement -Clinical Debridement Subcutaneous -Post Debridement Size (cm) - Length 0.1 0.4 0 -Post Debridement Size (cm) - Width 0.1 1.0 0 -Post Debridement Size (cm) - Depth 0.1 0.1 0 -Total Square Cm 0.01 0.40 0 -Wound/Ulcer Outcome Not Healed Not Healed Healed- Epithelialized -Ulcer Cleansing Not Cleansed Rinsed/ Irrigated with Saline -Foul Odor after Cleansing No No -Bioengineered Tissue No No -Bleeding Controlled with NA Pressure -Offloading No No -Treatment Response Procedure Procedure Tolerated Well Tolerated Well Pain Scale: 0-10 Numeric Is Patient Pain Free? Yes Yes Yes Wound debrided: Left buttock Wound Grade/Stage: Stage 3 Type of Debridement: Excisional debridement Anesthesia Used: 4% Lidocaine Solution Depth: Down to and including healthy tissue, in the subcutaneous layer Percentage of wound debrided: 100 Instrument Used: 5mm curette Tissue Removed: Slough and devitalized tissue Severity: Fat Layer Exposed Amount of bleeding with debridement: Mild Bleeding Controlled with: Pressure Patient tolerated procedure well - Additional Wound Wound debrided: Left lower abdomen ( Pannus ) Type of Debridement: Excisional debridement Anesthesia Used: 4% Lidocaine Solution Depth: Down to and including healthy tissue, in the subcutaneous layer Percentage of wound debrided: 100 Instrument Used: 3mm curette Tissue Removed: Slough and devitalized tissue Severity: Fat Layer Exposed Amount of bleeding with debridement: Mild Bleeding Controlled with: Pressure Patient tolerated procedure: Patient tolerated procedure well Assessment/Plan Active Problems (Last Reviewed 09/09/19 @ 11:[address] 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 Plan: Debridement done as documented above. Procedure was well-tolerated. Pomogran to all ulcers. Continue Nystatin powder also to abdominal pannus and under breast area. Application for epi-fix made due to chronicity of left buttock ulcer. Increase protein intake and optimal diabetes control also recommended. Her questions were answered and she was advised to call with any further questions or concerns. Follow-up in 2 weeks. This note was generated with [employer] software. It may contain incorrect words, spelling, and punctuation that were not noted in checking the note before signing. [id number]: [id number] [place] subq tissue 20 sq cm/<
== END 2019-09-30 23:59 ==
LOC: WC 11:30
PROVIDERS: PCP Internal Medicine; Referring Provider Internal Medicine; Visit Provider Internal Medicine
DX: L89.323 Pressure ulcer of left buttock, stage 3 (principal); E11.622 Type 2 diabetes mellitus with other skin ulcer; L97.822 Non-pressure chronic ulcer of other part of left lower leg with fat layer exposed; L98.492 Non-pressure chronic ulcer of skin of other sites with fat layer exposed; N61.1 Abscess of the breast and nipple; L30.4 Erythema intertrigo; E11.22 Type 2 diabetes mellitus with diabetic chronic kidney disease; I12.9 Hypertensive chronic kidney disease with stage 1 through stage 4 chronic kidney disease, or unspecified chronic kidney disease; N18.3 Chronic kidney disease, stage 3 (moderate); E78.5 Hyperlipidemia, unspecified; K21.9 Gastro-esophageal reflux disease without esophagitis; G47.30 Sleep apnea, unspecified; R53.81 Other malaise; F32.9 Major depressive disorder, single episode, unspecified; E66.01 Morbid (severe) obesity due to excess calories; Z68.42 Body mass index [BMI] 45.0-49.9, adult; Z79.84 Long term (current) use of oral hypoglycemic drugs; Z79.82 Long term (current) use of aspirin; Z79.899 Other long term (current) drug therapy
CPT/HCPCS: 11042; 11045; 87070; 87075; 87077; 87186; 87205; 99213; G0463

== ENCOUNTER → 2019-09-25 12:27 | Outpatient (CLI) | payer MEDICARE, SELFPAY ==
[2019-09-25 11:33] VITALS: BMI 46.1
[2019-09-25 13:16] LABS: Vitamin B12 433 pg/mL (211-911)
== END ==
PROVIDERS: PCP Internal Medicine; Referring Provider Psychiatry & Neurology Neurology; Visit Provider Psychiatry & Neurology Neurology
DX: I63.512 Cerebral infarction due to unspecified occlusion or stenosis of left middle cerebral artery (principal); R53.83 Other fatigue
CPT/HCPCS: 36415; 82607; 82746; 84443

== ENCOUNTER → 2019-09-29 20:35 | Outpatient (CLI) | payer MEDICARE, SELFPAY ==
[2019-09-25 11:33] VITALS: BMI 46.1
== END ==
PROVIDERS: PCP Internal Medicine; Referring Provider Nurse Practitioner Acute Care; Visit Provider Nurse Practitioner Acute Care
DX: G47.33 Obstructive sleep apnea (adult) (pediatric) (principal)
CPT/HCPCS: 95811

== ENCOUNTER 2019-10-07 17:12 | Outpatient (RCR) | payer MEDICARE, SELFPAY ==
[2019-10-02 13:56] LABS: Hemoglobin A1c 6.2 % (3.8-5.6)
[2019-10-02 14:14] LABS: Anion Gap 5 (5-15); BUN 30 mg/dL (7-18); BUN/Creat Ratio 20.4 RATIO (10-20); Calcium,Total 9.7 mg/dL (8.5-10.1); Chloride 104 mmol/L (98-107); Cholesterol 97 mg/dL (200); Creatinine, Serum 1.47 mg/dL (0.55-1.02); EST Glomerular Filtration Rate 37 mL/min (>60); Est Glom Filt Rate - Afr Amer 45 mL/min (>60); Free T3 2.2 pg/mL (2.18-3.98); Glucose 104 mg/dL (74-106); High Density Lipoprotein 32 mg/dL; Potassium 4.7 mmol/L (3.5-5.1); Sodium Level 141 mmol/L (136-145); Triglycerides 154 mg/dL; Very Low Density Lipoprotein 31 mg/dL (5-40)
[2019-10-03 14:59] LABS: Thyroid Peroxidase AB 548 IU/mL (0-34)
== END 2019-10-07 18:00 | disposition home or self-care (01) ==
LOC: HHLAB 17:12
PROVIDERS: PCP Internal Medicine; Referring Provider Internal Medicine; Visit Provider Internal Medicine
DX: R79.89 Other specified abnormal findings of blood chemistry (principal); E11.22 Type 2 diabetes mellitus with diabetic chronic kidney disease; N18.9 Chronic kidney disease, unspecified; Z86.73 Personal history of transient ischemic attack (TIA), and cerebral infarction without residual deficits; D64.9 Anemia, unspecified
CPT/HCPCS: 80048; 80061; 83036; 84439; 84481; 86376

== ENCOUNTER → 2019-10-07 17:12 | Outpatient (CLI) | payer MEDICARE, SELFPAY ==
[2019-09-25 11:33] VITALS: BMI 46.1
[2019-10-07 17:24] LABS: Hematocrit 34.5 % (37-47); Hemoglobin 10.5 g/dL (12.0-15.0); Mean Corp Hgb Conc 30.4 g/dL (32-36); Mean Corpuscular Hgb 28.8 pg (27.0-32.0); Mean Corpuscular Volume 94.5 fL (81-99); Mean Platelet Vol. 10.3 fl (6.2-12.0); Platelet Count 319 K/mm3 (150-450); RBC Distribution Width CV 13.6 % (11.6-14.6); RBC Distribution Width SD 47.3 fl (35.1-43.9); Red Blood Count 3.65 M/mm3 (4.2-5.4); White Blood Count 8.4 K/mm3 (4.4-11.0)
== END ==
PROVIDERS: PCP Internal Medicine; Visit Provider Internal Medicine
DX: I69.351 Hemiplegia and hemiparesis following cerebral infarction affecting right dominant side (principal); I69.320 Aphasia following cerebral infarction; I69.322 Dysarthria following cerebral infarction
CPT/HCPCS: 85027

== ENCOUNTER 2019-10-30 11:00 | Outpatient (RCR) | payer MEDICARE, SELFPAY ==
[2019-10-01 00:15] VITALS: BP 121/56; PULSE 65; RESP 18; TEMP 36.3
[2019-10-09 12:02] VITALS: BP 119/50; PULSE 56; RESP 18; TEMP 36.4; BMI 46.1
--- NOTE | 2019-10-09 13:37 | PN.PCM_ITS ---
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: Chronic Current Visit: Yes Code(s): L98.492 - Non-pressure chronic ulcer of skin of other sites with fat layer exposed (5) Intertrigo Status: Acute Current Visit: Yes Code(s): L30.4 - Erythema intertrigo (6) Morbid obesity with BMI of 40.0-44.9, adult Status: Chronic Current Visit: Yes Code(s): E66.01 - Morbid (severe) obesity due to excess calories; Z68.41 - Body mass index (BMI) 40.0-44.9, adult (7) 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 Keating is a 74yo Who presents to the wound center due to several ulcers. Oldest of which is the left buttock which has been present for at least 6 weeks. Initially noted while she was in a [facility]. Has been applying Neosporin without any significant improvement. She currently is at a BMI 46.1 with significant abdominal pannus, noted left-sided ulceration weeks ago. Right inferior breast also said to have been noted some weeks ago. Areas of redness and itching underneath both breasts. She otherwise is at her baseline. Denies chills, fever, nausea or vomiting. Progress of Wound: Abdominal ulcer is healed. Left buttock improving. - Physical Exam Vital Signs Temp Pulse Resp BP 97.6 F L 56 L 18 119/50 L 10/09/19 12:02 10/09/19 12:02 10/09/19 12:02 10/09/19 12:02 General: Alert, Oriented x3, Cooperative, No apparent distress HEENT: Atraumatic, Normocephalic Oral: Moist Mucosa Neck: Supple Lungs: Normal air movement Abdomen: Soft, Non Tender, Obese Extremities: No cyanosis Skin: Ulcer/ Wound Wound Measurements and Assessment WC - Nurse 1 - General Ulcer Measurement Start: 10/05/19 10:29 Freq: Status: Active Protocol: Activity Type Activity Date Activity User E-Sign Co-Sign Detail Recorded Client Recorded Date Recorded By Document 10/09/19 12:02 RB [id number] 10/09/19 12:09 RB 10/09/19 12:02 Wound Center Nurse 1 [Ulcer Assessment] #4- L UPPER BUTTOCK/LOWER BACK -Combined with other wound No -Current Size (cm) - Length 1.2 -Current Size (cm) - Width 1.3 -Current Size (cm) - Depth 0.1 -Total Square Cm 1.56 -Tunneling No -Undermining/Tunneling No -Circular Undermining No -Exudate Amt Small -Exudate Type Serosanguineous -Wound Margin Flat & Intact -Granulation Amt Medium (34-66%) -Granulation Quality [place] -Slough/Fibrin Yes -Necrosis Amt Medium (34-66%) -Necrotic Tissue Type Adherent Slough -Structure Exposed N/A -Texture (Niya-wound Skin Appearance) Excoriation -Moisture (Niya-wound Skin Appearance Assessed ) -Color (Niya-wound Skin Appearance) Assessed -Temperature (Niya-wound Skin No Abnormality Appearance) (Pt Warm) -Tenderness on Palpation (Niya-wound No Skin Appearance) -Ulcer Cleansing Rinsed/ Irrigated with Saline -Foul Odor after Cleansing No -Anesthetic Used 4% Lidocaine Solution #3- L PANNUS CLUSTER -Combined with other wound No -Current Size (cm) - Length 0.1 -Current Size (cm) - Width 0.1 -Current Size (cm) - Depth 0.1 -Total Square Cm 0.01 -Epithelialization Large 67-100% -Tunneling No -Undermining/Tunneling No -Circular Undermining No -Exudate Amt None Present -Granulation Amt Large (67-100%) -Granulation Quality [place] -Slough/Fibrin No -Structure Exposed N/A -Texture (Niya-wound Skin Appearance) Assessed -Moisture (Niya-wound Skin Appearance Assessed ) -Color (Niya-wound Skin Appearance) Assessed -Temperature (Niya-wound Skin No Abnormality Appearance) (Pt Warm) -Tenderness on Palpation (Niya-wound No Skin Appearance) -Ulcer Cleansing Wound Cleanser -Foul Odor after Cleansing No -Anesthetic Used 4% Lidocaine Solution #2- R BREAST CLUSTER -Combined with other wound No -Current Size (cm) - Length 0.1 -Current Size (cm) - Width 0.1 -Current Size (cm) - Depth 0.1 -Total Square Cm 0.01 -Epithelialization Large 67-100% -Tunneling No -Undermining/Tunneling No -Circular Undermining No -Exudate Amt None Present -Wound Margin Flat & Intact -Granulation Amt Large (67-100%) -Granulation Quality [place] -Slough/Fibrin Yes -Necrosis Amt Small (1-33%) -Necrotic Tissue Type Adherent Slough -Structure Exposed N/A -Texture (Niya-wound Skin Appearance) Assessed -Moisture (Niya-wound Skin Appearance Assessed ) -Color (Niya-wound Skin Appearance) Assessed -Temperature (Niya-wound Skin No Abnormality Appearance) (Pt Warm) -Tenderness on Palpation (Niya-wound No Skin Appearance) -Ulcer Cleansing Wound Cleanser -Foul Odor after Cleansing No -Anesthetic Used 4% Lidocaine Solution WC - Nurse 2 - General Ulcer CM Notes Start: 10/05/19 10:29 Freq: Status: Active Protocol: Activity Type Activity Date Activity User E-Sign Co-Sign Detail Recorded Client Recorded Date Recorded By Document 10/09/19 12:31 MW [id number] 10/09/19 12:34 MW 10/09/19 12:31 Wound Center Nurse 2 [Procedure/Treatment] #4- L UPPER BUTTOCK/LOWER BACK -Time 12:53 -Correct Patient Yes -Correct Side, Site, Position Yes -Correct Procedure Yes -Procedure Performed Yes -Type of Procedure Debridement -Clinical Debridement Subcutaneous -Post Debridement Size (cm) - Length 0.9 -Post Debridement Size (cm) - Width 1.0 -Post Debridement Size (cm) - Depth 0.2 -Total Square Cm 0.90 -Wound/Ulcer Outcome Not Healed -Ulcer Cleansing Rinsed/ Irrigated with Saline -Foul Odor after Cleansing No -Bioengineered Tissue No -Bleeding Controlled with Pressure -Offloading No #3- L PANNUS CLUSTER -Time 12:32 -Correct Patient Yes -Correct Side, Site, Position Yes -Correct Procedure Yes -Procedure Performed No -Post Debridement Size (cm) - Length 0 -Post Debridement Size (cm) - Width 0 -Post Debridement Size (cm) - Depth 0 -Total Square Cm 0 -Wound/Ulcer Outcome Healed- Epithelialized #2- R BREAST CLUSTER -Time 12:31 -Correct Patient Yes -Correct Side, Site, Position Yes -Correct Procedure Yes -Procedure Performed No -Post Debridement Size (cm) - Length 0 -Post Debridement Size (cm) - Width 0 -Post Debridement Size (cm) - Depth 0 -Total Square Cm 0 -Wound/Ulcer Outcome Healed- Epithelialized [See Physician Procedure note for Specifics] Musculoskeletal: No Muscle Wasting Neurological: Cranial nerves II-XII grossly intact Psych/Mental Status: Normal Affect Debridement Note Post-Debridement Measurements/Treatment WC - Nurse 2 - General Ulcer CM Notes Start: 10/05/19 10:29 Freq: Status: Active Protocol: Activity Type Activity Date Activity User E-Sign Co-Sign Detail Recorded Client Recorded Date Recorded By Document 10/09/19 12:31 MW [id number] 10/09/19 12:34 MW 10/09/19 12:31 Wound Center Nurse 2 #4- L UPPER BUTTOCK/LOWER BACK -Time 12:53 -Correct Patient Yes -Correct Side, Site, Position Yes -Correct Procedure Yes -Procedure Performed Yes -Type of Procedure Debridement -Clinical Debridement Subcutaneous -Post Debridement Size (cm) - Length 0.9 -Post Debridement Size (cm) - Width 1.0 -Post Debridement Size (cm) - Depth 0.2 -Total Square Cm 0.90 -Wound/Ulcer Outcome Not Healed -Ulcer Cleansing Rinsed/ Irrigated with Saline -Foul Odor after Cleansing No -Bioengineered Tissue No -Bleeding Controlled with Pressure -Offloading No #3- L PANNUS CLUSTER -Time 12:32 -Correct Patient Yes -Correct Side, Site, Position Yes -Correct Procedure Yes -Procedure Performed No -Post Debridement Size (cm) - Length 0 -Post Debridement Size (cm) - Width 0 -Post Debridement Size (cm) - Depth 0 -Total Square Cm 0 -Wound/Ulcer Outcome Healed- Epithelialized #2- R BREAST CLUSTER -Time 12:31 -Correct Patient Yes -Correct Side, Site, Position Yes -Correct Procedure Yes -Procedure Performed No -Post Debridement Size (cm) - Length 0 -Post Debridement Size (cm) - Width 0 -Post Debridement Size (cm) - Depth 0 -Total Square Cm 0 -Wound/Ulcer Outcome Healed- Epithelialized Wound debrided: Left buttock Wound Grade/Stage: Stage III Type of Debridement: Excisional debridement Anesthesia Used: 4% Lidocaine Solution Depth: Down to and including healthy tissue, in the subcutaneous layer Percentage of wound debrided: 100 Instrument Used: 3mm curette Tissue Removed: Slough and devitalized tissue Severity: Fat Layer Exposed Amount of bleeding with debridement: Mild Bleeding Controlled with: Pressure Patient tolerated procedure well Assessment/Plan Active Problems (Last Reviewed 09/09/19 @ 11:[address] 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 Plan: Debridement done as documented above. Procedure was well-tolerated. Continue Promogran to left buttock ulcer continue Nystatin powder also to abdominal pannus and under breast area. Increase protein intake and optimal diabetes control also recommended. Her questions were answered and she was advised to call with any further questions or concerns. Follow-up in 2 weeks per patient preference. This note was generated with [employer] dictation software. It may contain incorrect words, spelling, and punctuation that were not noted in checking the note before signing. [id number]: [id number] [place] subq tissue 20 sq cm/<
[2019-10-23 11:04] VITALS: BP 175/67; PULSE 62; RESP 18; TEMP 36.5; BMI 46.1
--- NOTE | 2019-10-23 11:35 | PN.PCM_ITS ---
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: Chronic Current Visit: Yes Code(s): L98.492 - Non-pressure chronic ulcer of skin of other sites with fat layer exposed (5) Intertrigo Status: Acute Current Visit: Yes Code(s): L30.4 - Erythema intertrigo (6) Morbid obesity with BMI of 40.0-44.9, adult Status: Chronic Current Visit: Yes Code(s): E66.01 - Morbid (severe) obesity due to excess calories; Z68.41 - Body mass index (BMI) 40.0-44.9, adult (7) 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 Keating is a 74yo Who presents to the wound center due to several ulcers. Oldest of which is the left buttock which has been present for at least 6 weeks. Initially noted while she was in a custodial post hospital stay. Has been applying Neosporin without any significant improvement. She currently is at a BMI 46.1 with significant abdominal pannus, noted left-sided ulceration weeks ago. Right inferior breast also said to have been noted some weeks ago. Areas of redness and itching underneath both breasts. She otherwise is at her baseline. Denies chills, fever, nausea or vomiting. Progress of Wound: Left buttock is improving. Other ulcers stay healed. No new concerns at this time. - Physical Exam Vital Signs Temp Pulse Resp BP 97.7 F L 62 18 175/67 H 10/23/19 11:04 10/23/19 11:04 10/23/19 11:04 10/23/19 11:04 General: Alert, Oriented x3, Cooperative, No apparent distress HEENT: Atraumatic, Normocephalic Oral: Moist Mucosa Neck: Supple Lungs: Normal air movement Abdomen: Non Tender, Obese Extremities: No cyanosis Skin: Ulcer/ Wound Wound Measurements and Assessment WC - Nurse 1 - General Ulcer Measurement Start: 10/05/19 10:29 Freq: Status: Active Protocol: Activity Type Activity Date Activity User E-Sign Co-Sign Detail Recorded Client Recorded Date Recorded By Document 10/23/19 11:04 RB [id number] 10/23/19 11:09 RB 10/23/19 11:04 Wound Center Nurse 1 [Ulcer Assessment] #4- L UPPER BUTTOCK/LOWER BACK -Current Size (cm) - Length 0.6 -Current Size (cm) - Width 1 -Current Size (cm) - Depth 0.2 -Total Square Cm 0.6 -Photo Taken No -Exudate Amt Small -Exudate Type Serosanguineous -Wound Margin Distinct, Outline Attached -Granulation Amt Small (1-33%) -Granulation Quality [place] -Necrosis Amt Large (67-100%) -Necrotic Tissue Type Adherent Slough -Structure Exposed N/A -Texture (Niya-wound Skin Appearance) Scarring -Moisture (Niya-wound Skin Appearance No Abnormality ) -Color (Niya-wound Skin Appearance) No Abnormality -Temperature (Niya-wound Skin No Abnormality Appearance) (Pt Warm) -Tenderness on Palpation (Niya-wound No Skin Appearance) -Ulcer Cleansing Rinsed/ Irrigated with Saline -Foul Odor after Cleansing No -Anesthetic Used 4% Lidocaine Solution Neurological: Cranial nerves II-XII grossly intact Psych/Mental Status: Normal Affect Debridement Note Post-Debridement Measurements/Treatment WC - Nurse 2 - General Ulcer CM Notes Start: 10/05/19 10:29 Freq: Status: Active Protocol: Activity Type Activity Date Activity User E-Sign Co-Sign Detail Recorded Client Recorded Date Recorded By Document 10/09/19 12:31 MW [id number] 10/09/19 12:34 MW 10/09/19 12:31 Wound Center Nurse 2 #4- L UPPER BUTTOCK/LOWER BACK -Time 12:53 -Correct Patient Yes -Correct Side, Site, Position Yes -Correct Procedure Yes -Procedure Performed Yes -Type of Procedure Debridement -Clinical Debridement Subcutaneous -Post Debridement Size (cm) - Length 0.9 -Post Debridement Size (cm) - Width 1.0 -Post Debridement Size (cm) - Depth 0.2 -Total Square (cm) 0.90 -Wound/Ulcer Outcome Not Healed -Ulcer Cleansing Rinsed/ Irrigated with Saline -Foul Odor after Cleansing No -Bioengineered Tissue No -Bleeding Controlled with Pressure -Offloading No #3- L PANNUS CLUSTER -Time 12:32 -Correct Patient Yes -Correct Side, Site, Position Yes -Correct Procedure Yes -Procedure Performed No -Post Debridement Size (cm) - Length 0 -Post Debridement Size (cm) - Width 0 -Post Debridement Size (cm) - Depth 0 -Total Square (cm) 0 -Wound/Ulcer Outcome Healed- Epithelialized #2- R BREAST CLUSTER -Time 12:31 -Correct Patient Yes -Correct Side, Site, Position Yes -Correct Procedure Yes -Procedure Performed No -Post Debridement Size (cm) - Length 0 -Post Debridement Size (cm) - Width 0 -Post Debridement Size (cm) - Depth 0 -Total Square (cm) 0 -Wound/Ulcer Outcome Healed- Epithelialized Wound debrided: Left Buttock Wound Grade/Stage: Stage III Type of Debridement: Excisional debridement Anesthesia Used: 4% Lidocaine Solution Depth: Down to and including healthy tissue, in the subcutaneous layer Percentage of wound debrided: 100 Instrument Used: 3mm curette Tissue Removed: Slough and devitalized tissue Severity: Fat Layer Exposed Amount of bleeding with debridement: Mild Bleeding Controlled with: Pressure Patient tolerated procedure well Assessment/Plan Active Problems (Last Updated 10/16/19 @ 15:16 by Eliane Dixon) 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 Plan: Debridement done as documented above. Procedure was well-tolerated. Continue Promogran to left buttock ulcer. Continue Nystatin powder also to abdominal pannus and under breast area. Increase protein intake and optimal diabetes control recommended. Her questions were answered and she was advised to call with any further questions or concerns. Follow-up in 1 week. This note was generated with [employer] software. It may contain incorrect words, spelling, and punctuation that were not noted in checking the note before signing. [id number]: [id number] [place] subq tissue 20 sq cm/<
[2019-10-30 11:02] VITALS: BP 132/51; PULSE 63; RESP 18; TEMP 36.3; BMI 46.1
--- NOTE | 2019-10-30 12:38 | PCM.WC.PN ---
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: Chronic Current Visit: Yes Code(s): L98.492 - Non-pressure chronic ulcer of skin of other sites with fat layer exposed (5) Intertrigo Status: Acute Current Visit: Yes Code(s): L30.4 - Erythema intertrigo (6) Morbid obesity with BMI of 40.0-44.9, adult Status: Chronic Current Visit: Yes Code(s): E66.01 - Morbid (severe) obesity due to excess calories; Z68.41 - Body mass index (BMI) 40.0-44.9, adult (7) 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 Keating is a 74yo Who presents to the wound center due to several ulcers. Oldest of which is the left buttock which has been present for at least 6 weeks. Initially noted while she was in a assisted post hospital stay. Has been applying Neosporin without any significant improvement. She currently is at a BMI 46.1 with significant abdominal pannus, noted left-sided ulceration weeks ago. Right inferior breast also said to have been noted some weeks ago. Areas of redness and itching underneath both breasts. She otherwise is at her baseline. Denies chills, fever, nausea or vomiting. Progress of Wound: No new concerns or significant change in 1 week. - Physical Exam Vital Signs Temp Pulse Resp BP 97.4 F L 63 18 132/51 H 10/30/19 11:02 10/30/19 11:02 10/30/19 11:02 10/30/19 11:02 General: Alert, Oriented x3, Cooperative, No apparent distress HEENT: Atraumatic, Normocephalic Oral: Moist Mucosa Neck: Supple Lungs: Normal air movement Abdomen: Non Tender, Obese Extremities: No cyanosis Skin: Ulcer/ Wound Wound Measurements and Assessment WC - Nurse 1 - General Ulcer Measurement Start: 10/05/19 10:29 Freq: Status: Active Protocol: Activity Type Activity Date Activity User E-Sign Co-Sign Detail Recorded Client Recorded Date Recorded By Document 10/30/19 11:02 BM [id number] 10/30/19 11:10 BMF 10/30/19 11:02 Wound Center Nurse 1 [Ulcer Assessment] #4- L UPPER BUTTOCK/LOWER BACK -Combined with other wound No -Current Size (cm) - Length 0.7 -Current Size (cm) - Width 1.4 -Current Size (cm) - Depth 0.3 -Total Square Cm 0.98 -Date of Last Picture (Recall this 10/30/19 field) -Photo Taken Yes -Epithelialization None Present -Tunneling No -Undermining/Tunneling No -Circular Undermining No -Exudate Amt Small -Exudate Type Serosanguineous -Wound Margin Distinct, Outline Attached -Granulation Amt Small (1-33%) -Granulation Quality Red -Slough/Fibrin Yes -Necrosis Amt Large (67-100%) -Necrotic Tissue Type Adherent Slough -Texture (Niya-wound Skin Appearance) Assessed, Scarring -Moisture (Niya-wound Skin Appearance Assessed ) -Color (Niya-wound Skin Appearance) Assessed, Erythema -Temperature (Niya-wound Skin No Abnormality Appearance) (Pt Warm) -Tenderness on Palpation (Niya-wound No Skin Appearance) -Ulcer Cleansing Rinsed/ Irrigated with Saline -Foul Odor after Cleansing No -Anesthetic Used 5% Lidocaine Gel WC - Nurse 2 - General Ulcer CM Notes Start: 10/05/19 10:29 Freq: Status: Active Protocol: Activity Type Activity Date Activity User E-Sign Co-Sign Detail Recorded Client Recorded Date Recorded By Document 10/30/19 11:27 MW [id number] 10/30/19 11:33 MW 10/30/19 11:27 Wound Center Nurse 2 [Procedure/Treatment] -Time 11:31 -Correct Patient Yes -Correct Side, Site, Position Yes -Correct Procedure Yes -Procedure Performed Yes -Type of Procedure Debridement -Clinical Debridement Subcutaneous -Post Debridement Size (cm) - Length 0.5 -Post Debridement Size (cm) - Width 1.0 -Post Debridement Size (cm) - Depth 0.1 -Total Square (cm) 0.50 -Wound/Ulcer Outcome Not Healed -Ulcer Cleansing Rinsed/ Irrigated with Saline -Foul Odor after Cleansing No -Bioengineered Tissue No -Bleeding Controlled with Pressure -Offloading No -Treatment Response Procedure Tolerated Well [See Physician Procedure note for Specifics] Pain Scale: 0-10 Numeric [Pain] -Is Patient Pain Free? Yes Musculoskeletal: No Muscle Wasting Neurological: Cranial nerves II-XII grossly intact Psych/Mental Status: Normal Affect Debridement Note Post-Debridement Measurements/Treatment WC - Nurse 2 - General Ulcer CM Notes Start: 10/05/19 10:29 Freq: Status: Active Protocol: Activity Type Activity Date Activity User E-Sign Co-Sign Detail Recorded Client Recorded Date Recorded By Document 10/09/19 12:31 MW [id number] 10/09/19 12:34 MW Document 10/23/19 11:39 [id number] 10/23/19 11:40 JF Document 10/30/19 11:27 MW [id number] 10/30/19 11:33 MW 10/09/19 10/23/19 10/30/19 12:31 11:39 11:27 Wound Center Nurse 2 #4- L UPPER BUTTOCK/LOWER BACK -Time 12:53 11:39 11:31 -Correct Patient Yes Yes Yes -Correct Side, Site, Position Yes Yes Yes -Correct Procedure Yes Yes Yes -Procedure Performed Yes Yes Yes -Type of Procedure Debridement Debridement Debridement -Clinical Debridement Subcutaneous Subcutaneous Subcutaneous -Post Debridement Size (cm) - Length 0.9 0.8 0.5 -Post Debridement Size (cm) - Width 1.0 1.0 1.0 -Post Debridement Size (cm) - Depth 0.2 0.2 0.1 -Total Square (cm) 0.90 0.80 0.50 -Wound/Ulcer Outcome Not Healed Not Healed Not Healed -Ulcer Cleansing Rinsed/ Rinsed/ Rinsed/ Irrigated with Irrigated with Irrigated with Saline Saline Saline -Foul Odor after Cleansing No No No -Bioengineered Tissue No No No -Bleeding Controlled with Pressure Pressure Pressure -Offloading No No No -Treatment Response Procedure Procedure Tolerated Well Tolerated Well #3- L PANNUS CLUSTER -Time 12:32 -Correct Patient Yes -Correct Side, Site, Position Yes -Correct Procedure Yes -Procedure Performed No -Post Debridement Size (cm) - Length 0 -Post Debridement Size (cm) - Width 0 -Post Debridement Size (cm) - Depth 0 -Total Square (cm) 0 -Wound/Ulcer Outcome Healed- Epithelialized #2- R BREAST CLUSTER -Time 12:31 -Correct Patient Yes -Correct Side, Site, Position Yes -Correct Procedure Yes -Procedure Performed No -Post Debridement Size (cm) - Length 0 -Post Debridement Size (cm) - Width 0 -Post Debridement Size (cm) - Depth 0 -Total Square (cm) 0 -Wound/Ulcer Outcome Healed- Epithelialized Pain Scale: 0-10 Numeric Is Patient Pain Free? 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 Plan: Debridement done as documented above. Procedure was well-tolerated. Cultures taken. Continue Promogran to left buttock ulcer. Continue Nystatin powder also to abdominal pannus and under breast area. Increase protein intake and optimal diabetes control recommended. Offloading also strongly recommended. Her questions were answered and she was advised to call with any further questions or concerns. Follow-up in 1 week. This note was generated with [employer] software. It may contain incorrect words, spelling, and punctuation that were not noted in checking the note before signing. [id number]: [id number] [place] subq tissue 20 sq cm/<
== END 2019-10-31 23:59 ==
LOC: WC 11:00
PROVIDERS: PCP Internal Medicine; Referring Provider Internal Medicine; Visit Provider Internal Medicine
DX: L89.323 Pressure ulcer of left buttock, stage 3 (principal); L97.822 Non-pressure chronic ulcer of other part of left lower leg with fat layer exposed; N61.1 Abscess of the breast and nipple; L98.492 Non-pressure chronic ulcer of skin of other sites with fat layer exposed; L30.4 Erythema intertrigo; E66.01 Morbid (severe) obesity due to excess calories; Z68.42 Body mass index [BMI] 45.0-49.9, adult
CPT/HCPCS: 11042; 87070; 87075; 87077; 87186; 87205

== ENCOUNTER → 2019-10-30 11:48 | Outpatient (CLI) | payer MEDICARE, SELFPAY | PROVIDERS: PCP Internal Medicine; Visit Provider Nurse Practitioner Acute Care | DX: Z46.89 Encounter for fitting and adjustment of other specified devices (principal); L98.412 Non-pressure chronic ulcer of buttock with fat layer exposed | CPT/HCPCS: 11042; 87070; 87075; 87077; 87186; 87205 ==

== ENCOUNTER 2019-11-27 10:30 | Outpatient (RCR) | payer MEDICARE, SELFPAY ==
[2019-11-01 00:17] VITALS: BP 132/51; PULSE 63; RESP 18; TEMP 36.3
[2019-11-06 09:03] VITALS: BP 137/56; PULSE 61; RESP 18; TEMP 35.9; O2SAT 95; BMI 46.1
--- NOTE | 2019-11-06 09:47 | PN.PCM_ITS ---
(1) Decubitus ulcer of right buttock, stage 1 Status: Acute Current Visit: Yes Code(s): L89.311 - Pressure ulcer of right buttock, stage 1 (2) Decubitus ulcer of left buttock, stage 3 Status: Chronic Current Visit: Yes Code(s): L89.323 - Pressure ulcer of left buttock, stage 3 (3) Diabetes mellitus, type II Status: Chronic Current Visit: Yes Code(s): E11.9 - Type 2 diabetes mellitus without complications (4) Physical debility Status: Chronic Current Visit: Yes Code(s): R53.81 - Other malaise Type of Wound Date of Service: 11/06/19 Chief Complaint: Ulcers ( Buttocks, Abdomen and Breast ) History of Wound: Ms. Keating is a 74yo Who presents to the wound center due to several ulcers. Oldest of which is the left buttock which has been present for at least 6 weeks. Initially noted while she was in a [facility] stay. Has been applying Neosporin without any significant improvement. She cu rrently is at a BMI 46.1 with significant abdominal pannus, noted left-sided ulceration weeks ago. Right inferior breast also said to have been noted some weeks ago. Areas of redness and itching underneath both breasts. She otherwise is at her baseline. Denies chills, fever, nausea or vomiting. Progress of Wound: Improving stage 3 ulcer. Stage 1 bilateral decubitus ulcers. - Physical Exam Vital Signs Temp Pulse Resp BP Pulse Ox 96.6 F L 61 18 137/56 H 95 11/06/19 09:03 11/06/19 09:03 11/06/19 09:03 11/06/19 09:03 11/06/19 09:03 General: Alert, Oriented x3, Cooperative, No apparent distress HEENT: Atraumatic, Normocephalic Oral: Moist Mucosa Neck: Supple Lungs: Normal air movement Abdomen: Non Tender, Obese Extremities: No cyanosis Skin: Ulcer/ Wound Wound Measurements and Assessment WC - Nurse 1 - General Ulcer Measurement Start: 11/06/19 09:03 Freq: Status: Active Protocol: Activity Type Activity Date Activity User E-Sign Co-Sign Detail Recorded Client Recorded Date Recorded By Document 11/06/19 09:03 PA [id number] 11/06/19 09:12 PA 11/06/19 09:03 Wound Center Nurse 1 [Ulcer Assessment] #4- L UPPER BUTTOCK/LOWER BACK -Current Size (cm) - Length 1.0 -Current Size (cm) - Width 0.6 -Current Size (cm) - Depth 0.2 -Total Square Cm 0.60 -Exudate Amt Small -Exudate Type Serosanguineous -Wound Margin Distinct, Outline Attached -Granulation Amt Medium (34-66%) -Granulation Quality Pale,[place] -Necrosis Amt Small (1-33%) -Necrotic Tissue Type Adherent Slough -Texture (Niya-wound Skin Appearance) Assessed -Moisture (Niya-wound Skin Appearance Assessed, ) Maceration -Color (Niya-wound Skin Appearance) Assessed -Temperature (Niya-wound Skin No Abnormality Appearance) (Pt Warm) -Tenderness on Palpation (Niya-wound No Skin Appearance) -Ulcer Cleansing Rinsed/ Irrigated with Saline -Foul Odor after Cleansing No -Anesthetic Used 5% Lidocaine Gel #3- L PANNUS CLUSTER -Current Size (cm) - Length 0.1 -Current Size (cm) - Width 0.1 -Current Size (cm) - Depth 0.1 -Total Square Cm 0.01 #2- R BREAST CLUSTER -Current Size (cm) - Length 0.1 -Current Size (cm) - Width 0.1 -Current Size (cm) - Depth 0.1 -Total Square Cm 0.01 [Edema Assessment] -Lower Limb Edema Present NA - Nurse 2 - General Ulcer CM Notes Start: 11/06/19 09:03 Freq: Status: Active Protocol: Activity Type Activity Date Activity User E-Sign Co-Sign Detail Recorded Client Recorded Date Recorded By Document 11/06/19 09:26 MW [id number] 11/06/19 09:33 MW 11/06/19 09:26 Wound Center Nurse 2 [Procedure/Treatment] #4- L UPPER BUTTOCK/LOWER BACK -Time 09:32 -Correct Patient Yes -Correct Side, Site, Position Yes -Correct Procedure Yes -Procedure Performed Yes -Type of Procedure Debridement -Clinical Debridement Subcutaneous -Post Debridement Size (cm) - Length 0.7 -Post Debridement Size (cm) - Width 0.7 -Post Debridement Size (cm) - Depth 0.2 -Total Square (cm) 0.49 -Wound/Ulcer Outcome Not Healed -Ulcer Cleansing Rinsed/ Irrigated with Saline -Foul Odor after Cleansing No -Bioengineered Tissue No -Bleeding Controlled with Pressure -Offloading No [See Physician Procedure note for Specifics] Pain Scale: 0-10 Numeric [Pain] -Is Patient Pain Free? Yes Musculoskeletal: No Muscle Wasting Neurological: Cranial nerves II-XII grossly intact Psych/Mental Status: Normal Affect Debridement Note Post-Debridement Measurements/Treatment WC - Nurse 2 - General Ulcer CM Notes Start: 11/06/19 09:03 Freq: Status: Active Protocol: Activity Type Activity Date Activity User E-Sign Co-Sign Detail Recorded Client Recorded Date Recorded By Document 11/06/19 09:26 MW [id number] 11/06/19 09:33 MW 11/06/19 09:26 Wound Center Nurse 2 #4- L UPPER BUTTOCK/LOWER BACK -Time 09:32 -Correct Patient Yes -Correct Side, Site, Position Yes -Correct Procedure Yes -Procedure Performed Yes -Type of Procedure Debridement -Clinical Debridement Subcutaneous -Post Debridement Size (cm) - Length 0.7 -Post Debridement Size (cm) - Width 0.7 -Post Debridement Size (cm) - Depth 0.2 -Total Square (cm) 0.49 -Wound/Ulcer Outcome Not Healed -Ulcer Cleansing Rinsed/ Irrigated with Saline -Foul Odor after Cleansing No -Bioengineered Tissue No -Bleeding Controlled with Pressure -Offloading No Pain Scale: 0-10 Numeric Is Patient Pain Free? Yes Wound debrided: Left Buttock Wound Grade/Stage: Stage III Type of Debridement: Excisional debridement Anesthesia Used: 4% Lidocaine Solution Depth: Down to and including healthy tissue, in the subcutaneous layer Percentage of wound debrided: 100 Instrument Used: 3mm curette Tissue Removed: Slough and devitalized tissue Severity: Fat Layer Exposed Amount of bleeding with debridement: Mild Bleeding Controlled with: Pressure Patient tolerated procedure well Assessment/Plan Active Problems (Last Updated 10/16/19 @ 15:16 by Eliane Dixon) Decubitus ulcer of right buttock, stage 1 (Acute) Decubitus ulcer of left buttock, stage 3 (Chronic) Physical debility (Chronic) Diabetes mellitus, type II (Chronic) Assessment: Same as above. Plan: Debridement done as documented above. Procedure was well-tolerated. Cultures reviewed. Minimal growth. Continue Promogran to left buttock ulcer. Pomogran as well to rigt stage 1 ulcer with adaptic and abd over top. Continue Nystatin powder also to abdominal pannus and under breast area. Increase protein intake and optimal diabetes control recommended. Offloading also strongly recommended. Her questions were answered and she was advised to call with any further questions or concerns. Follow-up in 1 week for a nurse visit and in 2 weeks with me. This note was generated with [employer] dictation software. It may contain incorrect words, spelling, and punctuation that were not noted in checking the note before signing. [id number]: [id number] [place] subq tissue 20 sq cm/<
[2019-11-13 13:29] VITALS: BP 113/38; PULSE 66; RESP 16; TEMP 36; BMI 46.1
[2019-11-20 11:57] VITALS: BP 147/61; PULSE 64; RESP 18; TEMP 36.1; BMI 46.1
--- NOTE | 2019-11-20 13:24 | PN.PCM_ITS ---
(1) Decubitus ulcer of right buttock, stage 1 Status: Acute Current Visit: Yes Code(s): L89.311 - Pressure ulcer of right buttock, stage 1 (2) Decubitus ulcer of left buttock, stage 3 Status: Chronic Current Visit: Yes Code(s): L89.323 - Pressure ulcer of left buttock, stage 3 (3) Diabetes mellitus, type II Status: Chronic Current Visit: Yes Code(s): E11.9 - Type 2 diabetes mellitus without complications (4) Physical debility Status: Chronic Current Visit: Yes Code(s): R53.81 - Other malaise Type of Wound Date of Service: 11/20/19 Chief Complaint: Ulcers ( Buttocks, Abdomen and Breast ) History of Wound: Ms. Keating is a 74yo Who presents to the wound center due to several ulcers. Oldest of which is the left buttock which has been present for at least 6 weeks. Initially noted while she was in a long term post hospital stay. Has been applying Neosporin without any significant improvement. She cu rrently is at a BMI 46.1 with significant abdominal pannus, noted left-sided ulceration weeks ago. Right inferior breast also said to have been noted some weeks ago. Areas of redness and itching underneath both breasts. She otherwise is at her baseline. Denies chills, fever, nausea or vomiting. Progress of Wound: Improving Left buttock stage 3 ulcer. Right buttock now a stage II. - Physical Exam Vital Signs Temp Pulse Resp BP Pulse Ox 96.9 F L 64 18 147/61 H 95 11/20/19 11:57 11/20/19 11:57 11/20/19 11:57 11/20/19 11:57 11/06/19 09:03 General: Alert, Oriented x3, Cooperative, No apparent distress HEENT: Atraumatic, Normocephalic Oral: Moist Mucosa Neck: Supple Lungs: Normal air movement Abdomen: Soft, Non Tender, Obese Extremities: No cyanosis Skin: Ulcer/ Wound Wound Measurements and Assessment WC - Nurse 1 - General Ulcer Measurement Start: 11/06/19 09:03 Freq: Status: Active Protocol: Activity Type Activity Date Activity User E-Sign Co-Sign Detail Recorded Client Recorded Date Recorded By Document 11/20/19 11:57 RB [id number] 11/20/19 12:00 RB 11/20/19 11:57 Wound Center Nurse 1 [Ulcer Assessment] #4- L UPPER BUTTOCK/LOWER BACK -Combined with other wound No -Current Size (cm) - Length 0.4 -Current Size (cm) - Width 0.5 -Current Size (cm) - Depth 0.2 -Total Square Cm 0.20 -Tunneling No -Undermining/Tunneling No -Circular Undermining No -Exudate Amt Small -Exudate Type Serosanguineous -Wound Margin Thickened -Granulation Amt Medium (34-66%) -Granulation Quality [address] -Slough/Fibrin Yes -Necrosis Amt Small (1-33%) -Necrotic Tissue Type Adherent Slough -Structure Exposed N/A -Texture (Niya-wound Skin Appearance) Assessed -Moisture (Niya-wound Skin Appearance Assessed ) -Color (Niya-wound Skin Appearance) Assessed -Temperature (Niya-wound Skin No Abnormality Appearance) (Pt Warm) -Tenderness on Palpation (Niya-wound No Skin Appearance) -Ulcer Cleansing Wound Cleanser -Foul Odor after Cleansing No -Anesthetic Used 5% Lidocaine Gel WC - Nurse 2 - General Ulcer CM Notes Start: 11/18/19 20:05 Freq: Status: Active Protocol: Activity Type Activity Date Activity User E-Sign Co-Sign Detail Recorded Client Recorded Date Recorded By Document 11/20/19 12:12 MW [id number] 11/20/19 12:16 MW 11/20/19 12:12 Wound Center Nurse 2 [Procedure/Treatment] #5 right buttock -Time 12:13 -Correct Patient Yes -Correct Side, Site, Position Yes -Correct Procedure Yes -Procedure Performed Yes -Type of Procedure Debridement -Clinical Debridement Subcutaneous -Tissue Removed Subcutaneous -Post Debridement (cm) - Length 0.7 -Post Debridement (cm) - Width 0.3 -Post Debridement (cm) - Depth 0.1 -Total Square (Post) (cm) 0.21 -Area of Debridement (cm) - Length 0.7 -Area of Debridement (cm) - Width 0.3 -Total Square (Area) (cm) 0.21 -Tunneling No -Undermining/Tunneling No -Circular Undermining No -Ulcer Cleansing Rinsed/ Irrigated with Saline -Foul Odor after Cleansing No -Bioengineered Tissue No -Bleeding Controlled with Pressure -Offloading No -Debridement - Subq, 1st 20sq cm No #4- L UPPER BUTTOCK/LOWER BACK -Time 12:12 -Correct Patient Yes -Correct Side, Site, Position Yes -Correct Procedure Yes -Procedure Performed Yes -Type of Procedure Debridement -Clinical Debridement Subcutaneous -Tissue Removed Subcutaneous -Post Debridement (cm) - Length 0.5 -Post Debridement (cm) - Width 0.5 -Post Debridement (cm) - Depth 0.1 -Total Square (Post) (cm) 0.25 -Area of Debridement (cm) - Length 0.5 -Area of Debridement (cm) - Width 0.5 -Total Square (Area) (cm) 0.25 -Tunneling No -Undermining/Tunneling No -Circular Undermining No -Wound/Ulcer Outcome Not Healed -Ulcer Cleansing Rinsed/ Irrigated with Saline -Foul Odor after Cleansing No -Bioengineered Tissue No -Bleeding Controlled with Pressure -Offloading No -Debridement - Subq, 1st 20sq cm Yes [See Physician Procedure note for Specifics] Pain Scale: 0-10 Numeric [Pain] -Is Patient Pain Free? Yes - Nurse 3 - General Ulcer D/C NN Start: 11/18/19 20:05 Freq: Status: Active Protocol: Activity Type Activity Date Activity User E-Sign Co-Sign Detail Recorded Client Recorded Date Recorded By Document 11/20/19 12:22 [facility] [id number] 11/20/19 12:23 [facility] 11/20/19 12:22 Wound Care Nurse 3 [Wound Dressing] #5 right buttock -Ulcer Cleansing Rinsed/ Irrigated with Saline -Foul Odor after Cleansing No -Primary Dressing Applied Promogran,Other -Other Dressing ADAPTIC, -Primary Dressing Covered/Secured Secured with with Tape -Other Covering ABD -Promogran 1 #4- L UPPER BUTTOCK/LOWER BACK -Ulcer Cleansing Rinsed/ Irrigated with Saline -Foul Odor after Cleansing No -Primary Dressing Applied Promogran,Other -Other Dressing ADAPTIC, ABD -Primary Dressing Covered/Secured Secured with with Tape,Other -Other Covering ABD -Promogran 0 [Post Procedure Tolerated] -Treatment Response Procedure Tolerated Well Pain Scale: 0-10 Numeric [Pain] -Is Patient Pain Free? Yes - Visit Discharge [Visit Discharge Information] -Discharge Condition Stable -Ambulatory Status Ambulatory, Walker -Transportation Private Auto Musculoskeletal: No Muscle Wasting Neurological: Cranial nerves II-XII grossly intact Psych/Mental Status: Normal Affect Debridement Note Post-Debridement Measurements/Treatment WC - Nurse 2 - General Ulcer CM Notes Start: 11/18/19 20:05 Freq: Status: Active Protocol: Activity Type Activity Date Activity User E-Sign Co-Sign Detail Recorded Client Recorded Date Recorded By Document 11/20/19 12:12 MW [id number] 11/20/19 12:16 MW 11/20/19 12:12 Wound Center Nurse 2 #5 right buttock -Time 12:13 -Correct Patient Yes -Correct Side, Site, Position Yes -Correct Procedure Yes -Procedure Performed Yes -Type of Procedure Debridement -Clinical Debridement Subcutaneous -Tissue Removed Subcutaneous -Post Debridement (cm) - Length 0.7 -Post Debridement (cm) - Width 0.3 -Post Debridement (cm) - Depth 0.1 -Total Square (Post) (cm) 0.21 -Area of Debridement (cm) - Length 0.7 -Area of Debridement (cm) - Width 0.3 -Total Square (Area) (cm) 0.21 -Tunneling No -Undermining/Tunneling No -Circular Undermining No -Ulcer Cleansing Rinsed/ Irrigated with Saline -Foul Odor after Cleansing No -Bioengineered Tissue No -Bleeding Controlled with Pressure -Offloading No -Debridement - Subq, 1st 20sq cm No #4- L UPPER BUTTOCK/LOWER BACK -Time 12:12 -Correct Patient Yes -Correct Side, Site, Position Yes -Correct Procedure Yes -Procedure Performed Yes -Type of Procedure Debridement -Clinical Debridement Subcutaneous -Tissue Removed Subcutaneous -Post Debridement (cm) - Length 0.5 -Post Debridement (cm) - Width 0.5 -Post Debridement (cm) - Depth 0.1 -Total Square (Post) (cm) 0.25 -Area of Debridement (cm) - Length 0.5 -Area of Debridement (cm) - Width 0.5 -Total Square (Area) (cm) 0.25 -Tunneling No -Undermining/Tunneling No -Circular Undermining No -Wound/Ulcer Outcome Not Healed -Ulcer Cleansing Rinsed/ Irrigated with Saline -Foul Odor after Cleansing No -Bioengineered Tissue No -Bleeding Controlled with Pressure -Offloading No -Debridement - Subq, 1st 20sq cm Yes Pain Scale: 0-10 Numeric Is Patient Pain Free? Yes - Nurse 3 - General Ulcer D/C NN Start: 11/18/19 20:05 Freq: Status: Active Protocol: Activity Type Activity Date Activity User E-Sign Co-Sign Detail Recorded Client Recorded Date Recorded By Document 11/20/19 12:22 [facility] [id number] 11/20/19 12:23 [facility] 11/20/19 12:22 Wound Care Nurse 3 #5 right buttock -Ulcer Cleansing Rinsed/ Irrigated with Saline -Foul Odor after Cleansing No -Primary Dressing Applied Promogran,Other -Other Dressing ADAPTIC, -Primary Dressing Covered/Secured with Secured with Tape -Other Covering ABD -Promogran 1 #4- L UPPER BUTTOCK/LOWER BACK -Ulcer Cleansing Rinsed/ Irrigated with Saline -Foul Odor after Cleansing No -Primary Dressing Applied Promogran,Other -Other Dressing ADAPTIC, ABD -Primary Dressing Covered/Secured with Secured with Tape,Other -Other Covering ABD -Promogran 0 Treatment Response Procedure Tolerated Well Pain Scale: 0-10 Numeric Is Patient Pain Free? Yes - Visit Discharge Discharge Condition Stable Ambulatory Status Ambulatory, Walker Transportation Private Auto Wound debrided: Left buttock Wound Grade/Stage: Stage III Anesthesia Used: 4% Lidocaine Solution Depth: Down to and including healthy tissue, in the subcutaneous layer Percentage of wound debrided: 100 Instrument Used: 3mm curette Tissue Removed: Slough and devitalized tissue Severity: Fat Layer Exposed Amount of bleeding with debridement: Mild Bleeding Controlled with: Pressure Patient tolerated procedure well - Additional Wound Wound debrided: Right buttock Wound Grade/Stage: Stage II Type of Debridement: Excisional debridement Anesthesia Used: 4% Lidocaine Solution Depth: Down to and including healthy tissue, in the subcutaneous layer Percentage of wound debrided: 100 Instrument Used: 3mm curette Tissue Removed: Slough and devitalized tissue Severity: Fat Layer Exposed Amount of bleeding with debridement: Mild Bleeding Controlled with: Pressure Patient tolerated procedure: Patient tolerated procedure well Assessment/Plan Active Problems (Last Updated 10/16/19 @ 15:16 by Eliane Dixon) Decubitus ulcer of right buttock, stage 1 (Acute) Decubitus ulcer of left buttock, stage 3 (Chronic) Physical debility (Chronic) Diabetes mellitus, type II (Chronic) Assessment: Same as above. Plan: Debridement done as documented above. Procedure was well-tolerated. Promogran to both ulcers. Continue Nystatin powder also to abdominal pannus and under breast area. Increase protein intake and optimal diabetes control recommended. Offloading also strongly recommended. Her questions were answered and she was advised to call with any further questions or concerns. Follow-up in 1 week. This note was generated with [employer] dictation software. It may contain incorrect words, spelling, and punctuation that were not noted in checking the note before signing. [id number]: [id number] Shiloh subq tissue 20 sq cm/<
[2019-11-27 10:47] VITALS: BP 130/67; PULSE 69; RESP 18; TEMP 36.1; BMI 46.1
--- NOTE | 2019-11-27 10:49 | WC ---
pt states her singles is flared up recently L flank area.
--- NOTE | 2019-11-27 11:51 | PN.PCM_ITS ---
(1) Decubitus ulcer of right buttock, stage 1 Status: Acute Current Visit: Yes Code(s): L89.311 - Pressure ulcer of right buttock, stage 1 (2) Decubitus ulcer of left buttock, stage 3 Status: Chronic Current Visit: Yes Code(s): L89.323 - Pressure ulcer of left buttock, stage 3 (3) Diabetes mellitus, type II Status: Chronic Current Visit: Yes Code(s): E11.9 - Type 2 diabetes mellitus without complications (4) Physical debility Status: Chronic Current Visit: Yes Code(s): R53.81 - Other malaise (5) Skin ulcer of flank with fat layer exposed Status: Acute Current Visit: Yes Code(s): L98.492 - Non-pressure chronic ulcer of skin of other sites with fat layer exposed Comment: Left Flank Type of Wound Date of Service: 11/27/19 Chief Complaint: Ulcers ( Buttocks, Abdomen and Breast ) History of Wound: Ms. Keating is a 74yo Who presents to the wound center due to several ulcers. Oldest of which is the left buttock which has been present for at least 6 weeks. Initially noted while she was in a correction post hospital stay. Has been applying Neosporin without any significant improvement. She currently is at a BMI 46.1 with significant abdominal pannus, noted left-sided ulceration weeks ago. Right inferior breast also said to have been noted some weeks ago. Areas of redness and itching underneath both breasts. She otherwise is at her baseline. Denies chills, fever, nausea or vomiting. Progress of Wound: Improving Left buttock stage 3 ulcer. Right buttock stage 2 is healed. New left flank ulcer. - Physical Exam Vital Signs Temp Pulse Resp BP Pulse Ox 97 F L 69 18 130/67 H 95 11/27/19 10:47 11/27/19 10:47 11/27/19 10:47 11/27/19 10:47 11/06/19 09:03 General: Alert, Oriented x3, Cooperative, No apparent distress HEENT: Atraumatic, Normocephalic Oral: Moist Mucosa Neck: Supple Lungs: Normal air movement Abdomen: Non Tender, Obese Extremities: No cyanosis Wound Measurements and Assessment WC - Nurse 1 - General Ulcer Measurement Start: 11/06/19 09:03 Freq: Status: Active Protocol: Activity Type Activity Date Activity User E-Sign Co-Sign Detail Recorded Client Recorded Date Recorded By Document 11/27/19 10:47 [email or web address] [id number] 11/27/19 10:51 RB 11/27/19 10:47 Wound Center Nurse 1 [Ulcer Assessment] #5 right buttock -Combined with other wound No -Current Size (cm) - Length 0.1 -Current Size (cm) - Width 0.1 -Current Size (cm) - Depth 0.1 -Total Square Cm 0.01 -Photo Taken No -Tunneling No -Undermining/Tunneling No -Circular Undermining No -Exudate Amt None Present -Wound Margin Flat & Intact -Granulation Amt Medium (34-66%) -Granulation Quality Short -Slough/Fibrin Yes -Necrosis Amt Large (67-100%) -Necrotic Tissue Type Adherent Slough -Structure Exposed N/A -Texture (Niya-wound Skin Appearance) Assessed -Moisture (Niya-wound Skin Appearance Dry/Scaly ) -Color (Niya-wound Skin Appearance) Assessed -Temperature (Niya-wound Skin No Abnormality Appearance) (Pt Warm) -Tenderness on Palpation (Nyia-wound No Skin Appearance) -Ulcer Cleansing Wound Cleanser -Foul Odor after Cleansing No -Anesthetic Used 5% Lidocaine Gel #4- L UPPER BUTTOCK/LOWER BACK -Current Size (cm) - Length 0.1 -Current Size (cm) - Width 0.1 -Current Size (cm) - Depth 0.1 -Total Square Cm 0.01 -Tunneling No -Undermining/Tunneling No -Circular Undermining No -Exudate Amt None Present -Wound Margin Flat & Intact -Granulation Amt Medium (34-66%) -Granulation Quality Short -Slough/Fibrin Yes -Necrosis Amt Medium (34-66%) -Necrotic Tissue Type Adherent Slough -Structure Exposed N/A -Texture (Niya-wound Skin Appearance) Assessed -Moisture (Niya-wound Skin Appearance Assessed,Dry/ ) Scaly -Color (Niya-wound Skin Appearance) Assessed -Temperature (Niya-wound Skin No Abnormality Appearance) (Pt Warm) -Tenderness on Palpation (Niya-wound No Skin Appearance) -Ulcer Cleansing Wound Cleanser -Foul Odor after Cleansing No -Anesthetic Used 5% Lidocaine Gel 11/27/19 10:49 Wound Center by Anna Ernandez pt states her singles is flared up recently L flank area. Initialized on 11/27/19 10:49 - END OF NOTE WC - Nurse 2 - General Ulcer CM Notes Start: 11/18/19 20:05 Freq: Status: Active Protocol: Activity Type Activity Date Activity User E-Sign Co-Sign Detail Recorded Client Recorded Date Recorded By Document 11/27/19 10:58 MW [id number] 11/27/19 11:05 MW 11/27/19 10:58 Wound Center Nurse 2 [Procedure/Treatment] #6 Left flank cluster -Time 11:01 -Correct Patient Yes -Correct Side, Site, Position Yes -Correct Procedure Yes -Procedure Performed Yes -Type of Procedure Debridement -Clinical Debridement Subcutaneous -Tissue Removed Subcutaneous -Post Debridement (cm) - Length 2.5 -Post Debridement (cm) - Width 4.0 -Post Debridement (cm) - Depth 0.1 -Total Square (Post) (cm) 10.00 -Area of Debridement (cm) - Length 2.5 -Area of Debridement (cm) - Width 4.0 -Total Square (Area) (cm) 10.00 -Tunneling No -Undermining/Tunneling No -Circular Undermining No -Wound/Ulcer Outcome Not Healed -Ulcer Cleansing Rinsed/ Irrigated with Saline -Foul Odor after Cleansing No -Bioengineered Tissue No -Bleeding Controlled with Pressure -Offloading No -Debridement - Subq, 1st 20sq cm Yes #5 right buttock -Time 11:01 -Correct Patient Yes -Correct Side, Site, Position Yes -Correct Procedure Yes -Procedure Performed No -Post Debridement (cm) - Length 0 -Post Debridement (cm) - Width 0 -Post Debridement (cm) - Depth 0 -Total Square (Post) (cm) 0 -Tunneling No -Undermining/Tunneling No -Circular Undermining No -Wound/Ulcer Outcome Healed- Epithelialized -Bleeding Controlled with NA -Treatment Response Procedure Tolerated Well #4- L UPPER BUTTOCK/LOWER BACK -Time 11:02 -Correct Patient Yes -Correct Side, Site, Position Yes -Correct Procedure Yes -Procedure Performed Yes -Type of Procedure Debridement -Clinical Debridement Subcutaneous -Tissue Removed Subcutaneous -Post Debridement (cm) - Length 0.3 -Post Debridement (cm) - Width 0.3 -Post Debridement (cm) - Depth 0.1 -Total Square (Post) (cm) 0.09 -Area of Debridement (cm) - Length 0.3 -Area of Debridement (cm) - Width 0.3 -Total Square (Area) (cm) 0.09 -Tunneling No -Undermining/Tunneling No -Circular Undermining No -Wound/Ulcer Outcome Not Healed -Ulcer Cleansing Rinsed/ Irrigated with Saline -Foul Odor after Cleansing No -Bioengineered Tissue No -Bleeding Controlled with Pressure -Offloading No -Treatment Response Procedure Tolerated Well -Debridement - Subq, 1st 20sq cm No [See Physician Procedure note for Specifics] Pain Scale: 0-10 Numeric [Pain] -Is Patient Pain Free? Yes - Nurse 3 - General Ulcer D/C NN Start: 11/18/19 20:05 Freq: Status: Active Protocol: Activity Type Activity Date Activity User E-Sign Co-Sign Detail Recorded Client Recorded Date Recorded By Document 11/27/19 11:19 RB [id number] 11/27/19 11:20 RB 11/27/19 11:19 Wound Care Nurse 3 [Wound Dressing] #6 Left flank cluster -Ulcer Cleansing Rinsed/ Irrigated with Saline -Other Dressing rosalinda -Primary Dressing Covered/Secured Dry Gauze, with Secured with Tape #4- L UPPER BUTTOCK/LOWER BACK -Primary Dressing Applied Promogran Rosalinda Matter -Primary Dressing Covered/Secured Dry Gauze, with Secured with Tape -Promogran Rosalinda Matter 1 [Post Procedure Tolerated] -Treatment Response Procedure Tolerated Well Pain Scale: 0-10 Numeric [Pain] -Is Patient Pain Free? Yes Teaching: Wound Center [Wound Center Education] (Items with an * have Printed Materials Available- Please identify what is given to patient under the Teaching materials given to patient and caregiver Section. Dressing Your Wound -Person Taught Patient -Teaching Method Discussion, Demonstration -Response to teaching Verbalize understanding WC - Visit Discharge [Visit Discharge Information] -Discharge Condition Stable -Ambulatory Status Ambulatory -Transportation Private Auto -Medication Reconcilliation completed No & provided to patient/care provider -Clinical Summary of Care Provided Yes Musculoskeletal: No Muscle Wasting Neurological: Cranial nerves II-XII grossly intact Psych/Mental Status: Normal Affect Debridement Note Post-Debridement Measurements/Treatment - Nurse 2 - General Ulcer CM Notes Start: 11/18/19 20:05 Freq: Status: Active Protocol: Activity Type Activity Date Activity User E-Sign Co-Sign Detail Recorded Client Recorded Date Recorded By Document 11/20/19 12:12 MW [id number] 11/20/19 12:16 MW Document 11/27/19 10:58 MW [id number] 11/27/19 11:05 MW 11/20/19 11/27/19 12:12 10:58 Wound Center Nurse 2 #6 Left flank cluster -Time 11:01 -Correct Patient Yes -Correct Side, Site, Position Yes -Correct Procedure Yes -Procedure Performed Yes -Type of Procedure Debridement -Clinical Debridement Subcutaneous -Tissue Removed Subcutaneous -Post Debridement (cm) - Length 2.5 -Post Debridement (cm) - Width 4.0 -Post Debridement (cm) - Depth 0.1 -Total Square (Post) (cm) 10.00 -Area of Debridement (cm) - Length 2.5 -Area of Debridement (cm) - Width 4.0 -Total Square (Area) (cm) 10.00 -Tunneling No -Undermining/Tunneling No -Circular Undermining No -Wound/Ulcer Outcome Not Healed -Ulcer Cleansing Rinsed/ Irrigated with Saline -Foul Odor after Cleansing No -Bioengineered Tissue No -Bleeding Controlled with Pressure -Offloading No -Debridement - Subq, 1st 20sq cm Yes #5 right buttock -Time 12:13 11:01 -Correct Patient Yes Yes -Correct Side, Site, Position Yes Yes -Correct Procedure Yes Yes -Procedure Performed Yes No -Type of Procedure Debridement -Clinical Debridement Subcutaneous -Tissue Removed Subcutaneous -Post Debridement (cm) - Length 0.7 0 -Post Debridement (cm) - Width 0.3 0 -Post Debridement (cm) - Depth 0.1 0 -Total Square (Post) (cm) 0.21 0 -Area of Debridement (cm) - Length 0.7 -Area of Debridement (cm) - Width 0.3 -Total Square (Area) (cm) 0.21 -Tunneling No No -Undermining/Tunneling No No -Circular Undermining No No -Wound/Ulcer Outcome Healed- Epithelialized -Ulcer Cleansing Rinsed/ Irrigated with Saline -Foul Odor after Cleansing No -Bioengineered Tissue No -Bleeding Controlled with Pressure NA -Offloading No -Treatment Response Procedure Tolerated Well -Debridement - Subq, 1st 20sq cm No #4- L UPPER BUTTOCK/LOWER BACK -Time 12:12 11:02 -Correct Patient Yes Yes -Correct Side, Site, Position Yes Yes -Correct Procedure Yes Yes -Procedure Performed Yes Yes -Type of Procedure Debridement Debridement -Clinical Debridement Subcutaneous Subcutaneous -Tissue Removed Subcutaneous Subcutaneous -Post Debridement (cm) - Length 0.5 0.3 -Post Debridement (cm) - Width 0.5 0.3 -Post Debridement (cm) - Depth 0.1 0.1 -Total Square (Post) (cm) 0.25 0.09 -Area of Debridement (cm) - Length 0.5 0.3 -Area of Debridement (cm) - Width 0.5 0.3 -Total Square (Area) (cm) 0.25 0.09 -Tunneling No No -Undermining/Tunneling No No -Circular Undermining No No -Wound/Ulcer Outcome Not Healed Not Healed -Ulcer Cleansing Rinsed/ Rinsed/ Irrigated with Irrigated with Saline Saline -Foul Odor after Cleansing No No -Bioengineered Tissue No No -Bleeding Controlled with Pressure Pressure -Offloading No No -Treatment Response Procedure Tolerated Well -Debridement - Subq, 1st 20sq cm Yes No Pain Scale: 0-10 Numeric Is Patient Pain Free? Yes Yes - Nurse 3 - General Ulcer D/C NN Start: 11/18/19 20:05 Freq: Status: Active Protocol: Activity Type Activity Date Activity User E-Sign Co-Sign Detail Recorded Client Recorded Date Recorded By Document 11/20/19 12:22 [facility] [id number] 11/20/19 12:23 [facility] Document 11/27/19 11:19 [id number] 11/27/19 11:20 RB 11/20/19 11/27/19 12:22 11:19 Wound Care Nurse 3 #6 Left flank cluster -Ulcer Cleansing Rinsed/ Irrigated with Saline -Other Dressing rosalinda -Primary Dressing Covered/Secured with Dry Gauze, Secured with Tape #5 right buttock -Ulcer Cleansing Rinsed/ Irrigated with Saline -Foul Odor after Cleansing No -Primary Dressing Applied Promogran,Other -Other Dressing ADAPTIC, -Primary Dressing Covered/Secured with Secured with Tape -Other Covering ABD -Promogran 1 #4- L UPPER BUTTOCK/LOWER BACK -Ulcer Cleansing Rinsed/ Irrigated with Saline -Foul Odor after Cleansing No -Primary Dressing Applied Promogran,Other -Primary Dressing Applied Promogran Rosalinda Matter -Other Dressing ADAPTIC, ABD -Primary Dressing Covered/Secured with Secured with Dry Gauze, Tape,Other Secured with Tape -Other Covering ABD -Promogran 0 -Promogran Rosalinda Matter 1 Treatment Response Procedure Procedure Tolerated Well Tolerated Well Pain Scale: 0-10 Numeric Is Patient Pain Free? Yes Yes Teaching: Wound Center Dressing Your Wound -Person Taught Patient -Teaching Method Discussion, Demonstration -Response to teaching Verbalize understanding WC - Visit Discharge Discharge Condition Stable Stable Ambulatory Status Ambulatory, Ambulatory Walker Transportation Private Auto Private Auto Medication Reconcilliation completed & No provided to patient/care provider Clinical Summary of Care Provided Yes Wound debrided: Left buttock Type of Debridement: Excisional debridement Anesthesia Used: 4% Lidocaine Solution Depth: Down to and including healthy tissue, in the subcutaneous layer Percentage of wound debrided: 100 Instrument Used: - - 1mm Tissue Removed: Slough and devitalized tissue Severity: Fat Layer Exposed Amount of bleeding with debridement: Mild Bleeding Controlled with: Pressure Patient tolerated procedure well - Additional Wound Wound debrided: Left Flank Type of Debridement: Excisional debridement Anesthesia Used: 4% Lidocaine Solution Depth: Down to and including healthy tissue, in the subcutaneous layer Instrument Used: 5mm curette Tissue Removed: Slough and devitalized tissue Severity: Fat Layer Exposed Amount of bleeding with debridement: Mild Bleeding Controlled with: Pressure Patient tolerated procedure: Patient tolerated procedure well Assessment/Plan Active Problems (Last Updated 10/16/19 @ 15:16 by Eliane Dixon) Decubitus ulcer of right buttock, stage 1 (Acute) Skin ulcer of flank with fat layer exposed (Acute) Left Flank Decubitus ulcer of left buttock, stage 3 (Chronic) Physical debility (Chronic) Diabetes mellitus, type II (Chronic) Assessment: Same as above. Plan: Debridement done as documented above. Procedure was well-tolerated. Promogran to both ulcers. Continue Nystatin powder also to abdominal pannus and under breast area. Increase protein intake and optimal diabetes control recomm ended. Offloading also strongly recommended. Her questions were answered and she was advised to call with any further questions or concerns. Follow-up in 1 week. This note was generated with [employer] software. It may contain incorrect words, spelling, and punctuation that were not noted in checking the note before signing. [id number]: [id number] [place] subq tissue 20 sq cm/<
== END 2019-12-01 23:59 ==
LOC: WC 10:30
PROVIDERS: PCP Internal Medicine; Referring Provider Internal Medicine; Visit Provider Internal Medicine
DX: L89.311 Pressure ulcer of right buttock, stage 1 (principal); L89.323 Pressure ulcer of left buttock, stage 3; L98.492 Non-pressure chronic ulcer of skin of other sites with fat layer exposed; R53.81 Other malaise; E11.9 Type 2 diabetes mellitus without complications; E65 Localized adiposity
CPT/HCPCS: 11042; 99212; G0463

== ENCOUNTER 2019-12-11 10:59 | Outpatient (RCR) | payer MEDICARE, SELFPAY ==
[2019-12-02 00:23] VITALS: BP 130/67; PULSE 69; RESP 18; TEMP 36.1; O2SAT 95
[2019-12-11 11:12] VITALS: BP 137/60; PULSE 63; RESP 18; TEMP 36.1; BMI 46.1
--- NOTE | 2019-12-11 12:22 | WC ---
optifoam gentle to healed buttocks wounds
--- NOTE | 2019-12-11 12:48 | PN.PCM_ITS ---
(1) Decubitus ulcer of right buttock, stage 1 Status: Chronic Code(s): L89.311 - Pressure ulcer of right buttock, stage 1 (2) Skin ulcer of flank with fat layer exposed Status: Acute Code(s): L98.492 - Non-pressure chronic ulcer of skin of other sites with fat layer exposed Comment: Left Flank (3) Diabetes mellitus, type II Status: Chronic Code(s): E11.9 - Type 2 diabetes mellitus without complications Type of Wound Date of Service: 12/11/19 Chief Complaint: Ulcers ( Buttocks, Abdomen and Breast ) History of Wound: Ms. Keating is a 74yo Who presents to the wound center due to several ulcers. Oldest of which is the left buttock which has been present for at least 6 weeks. Initially noted while she was in a alf post hospital stay. Has been applying Neosporin without any significant improvement. She currently is at a BMI 46.1 with significant abdominal pannus, noted left-sided ulceration weeks ago. Right inferior breast also said to have been noted some weeks ago. Areas of redness and itching underneath both breasts. She otherwise is at her baseline. Denies chills, fever, nausea or vomiting. Progress of Wound: Left buttock stage 3 ulcer is healed. Right buttock stage 2 remains healed. New left flank ulcer is pink but healed. - Physical Exam Vital Signs Temp Pulse Resp BP Pulse Ox 97.0 F L 63 18 137/60 H 95 12/11/19 11:12 12/11/19 11:12 12/11/19 11:12 12/11/19 11:12 12/02/19 00:23 General: Alert, Oriented x3, Cooperative HEENT: Atraumatic Oral: Moist Mucosa Lungs: Normal air movement Cardiovascular: Regular rate Extremities: Capillary Refill Less than 3 Seconds Skin: Ulcer/ Wound - Left posterior flank ulcer is pink where her shingles were present but there is no opened areas. Her right and left buttock ulcers are healed. Wound Measurements and Assessment WC - Nurse 1 - General Ulcer Measurement Start: 12/11/19 11:12 Freq: Status: Active Protocol: Activity Type Activity Date Activity User E-Sign Co-Sign Detail Recorded Client Recorded Date Recorded By Document 12/11/19 11:12 [place] [id number] 12/11/19 11:16 OH 12/11/19 11:12 Wound Center Nurse 1 [Ulcer Assessment] #6 Left flank cluster -Current Size (cm) - Length 0.1 -Current Size (cm) - Width 0.1 -Current Size (cm) - Depth 0.1 -Total Square Cm 0.01 -Epithelialization Large 67-100% -Exudate Amt None Present -Texture (Niya-wound Skin Appearance) Assessed -Moisture (Niya-wound Skin Appearance Assessed ) -Color (Niya-wound Skin Appearance) Assessed -Temperature (Niya-wound Skin No Abnormality Appearance) (Pt Warm) -Tenderness on Palpation (Niya-wound No Skin Appearance) -Ulcer Cleansing Rinsed/ Irrigated with Saline -Foul Odor after Cleansing No -Anesthetic Used 4% Lidocaine Solution #4- L UPPER BUTTOCK/LOWER BACK -Current Size (cm) - Length 0.1 -Current Size (cm) - Width 0.1 -Current Size (cm) - Depth 0.1 -Total Square Cm 0.01 -Epithelialization Large 67-100% -Exudate Amt None Present -Texture (Niya-wound Skin Appearance) Assessed -Moisture (Niya-wound Skin Appearance Assessed ) -Color (Niya-wound Skin Appearance) Assessed -Temperature (Niya-wound Skin No Abnormality Appearance) (Pt Warm) -Tenderness on Palpation (Niya-wound No Skin Appearance) -Ulcer Cleansing Rinsed/ Irrigated with Saline -Foul Odor after Cleansing No -Anesthetic Used 4% Lidocaine Solution [Edema Assessment] -Lower Limb Edema Present NA WC - Nurse 2 - General Ulcer CM Notes Start: 12/11/19 11:12 Freq: Status: Active Protocol: Activity Type Activity Date Activity User E-Sign Co-Sign Detail Recorded Client Recorded Date Recorded By Document 12/11/19 12:06 [email or web address] [id number] 12/11/19 12:09 MW 12/11/19 12:06 Wound Center Nurse 2 [Procedure/Treatment] #6 Left flank cluster -Time 12:07 -Correct Patient Yes -Correct Side, Site, Position Yes -Correct Procedure Yes -Procedure Performed No -Post Debridement (cm) - Length 0 -Post Debridement (cm) - Width 0 -Post Debridement (cm) - Depth 0 -Total Square (Post) (cm) 0 -Wound/Ulcer Outcome Healed- Epithelialized #4- L UPPER BUTTOCK/LOWER BACK -Time 12:07 -Correct Patient Yes -Correct Side, Site, Position Yes -Correct Procedure Yes -Procedure Performed No -Post Debridement (cm) - Length 0 -Post Debridement (cm) - Width 0 -Post Debridement (cm) - Depth 0 -Total Square (Post) (cm) 0 -Wound/Ulcer Outcome Healed- Epithelialized [See Physician Procedure note for Specifics] WC - Nurse 3 - General Ulcer D/C NN Start: 12/11/19 11:12 Freq: Status: Active Protocol: Activity Type Activity Date Activity User E-Sign Co-Sign Detail Recorded Client Recorded Date Recorded By Document 12/11/19 12:16 RB [id number] 12/11/19 12:23 RB 12/11/19 12:16 Wound Care Nurse 3 [Post Procedure Tolerated] -Treatment Response Procedure Tolerated Well Pain Scale: 0-10 Numeric [Pain] -Is Patient Pain Free? Yes Teaching: Wound Center [Wound Center Education] (Items with an * have Printed Materials Available- Please identify what is given to patient under the Teaching materials given to patient and caregiver Section. Discharge Instructions -Person Taught Patient -Teaching Method Discussion, Demonstration -Response to teaching Verbalize understanding WC - Visit Discharge [Visit Discharge Information] -Discharge Condition Stable -Ambulatory Status Ambulatory -Transportation Private Auto -Medication Reconcilliation completed No & provided to patient/care provider -Clinical Summary of Care Provided Yes 12/11/19 12:22 Wound Center by Anna Ernandez gentle to healed buttocks wounds Initialized on 12/11/19 12:22 - END OF NOTE Musculoskeletal: No Tenderness to Palpation of Joints or Extremities Neurological: Cranial nerves II-XII grossly intact Psych/Mental Status: Normal Affect Debridement Note Post-Debridement Measurements/Treatment WC - Nurse 2 - General Ulcer CM Notes Start: 12/11/19 11:12 Freq: Status: Active Protocol: Activity Type Activity Date Activity User E-Sign Co-Sign Detail Recorded Client Recorded Date Recorded By Document 12/11/19 12:06 MW [id number] 12/11/19 12:09 MW 12/11/19 12:06 Wound Center Nurse 2 #6 Left flank cluster -Time 12:07 -Correct Patient Yes -Correct Side, Site, Position Yes -Correct Procedure Yes -Procedure Performed No -Post Debridement (cm) - Length 0 -Post Debridement (cm) - Width 0 -Post Debridement (cm) - Depth 0 -Total Square (Post) (cm) 0 -Wound/Ulcer Outcome Healed- Epithelialized #4- L UPPER BUTTOCK/LOWER BACK -Time 12:07 -Correct Patient Yes -Correct Side, Site, Position Yes -Correct Procedure Yes -Procedure Performed No -Post Debridement (cm) - Length 0 -Post Debridement (cm) - Width 0 -Post Debridement (cm) - Depth 0 -Total Square (Post) (cm) 0 -Wound/Ulcer Outcome Healed- Epithelialized WC - Nurse 3 - General Ulcer D/C NN Start: 12/11/19 11:12 Freq: Status: Active Protocol: Activity Type Activity Date Activity User E-Sign Co-Sign Detail Recorded Client Recorded Date Recorded By Document 12/11/19 12:16 RB [id number] 12/11/19 12:23 RB 12/11/19 12:16 Wound Care Nurse 3 Treatment Response Procedure Tolerated Well Pain Scale: 0-10 Numeric Is Patient Pain Free? Yes Teaching: Wound Center Discharge Instructions -Person Taught Patient -Teaching Method Discussion, Demonstration -Response to teaching Verbalize understanding WC - Visit Discharge Discharge Condition Stable Ambulatory Status Ambulatory Transportation Private Auto Medication Reconcilliation completed & No provided to patient/care provider Clinical Summary of Care Provided Yes 12/11/19 12:22 Wound Center by Anna Ernandez optifoam gentle to healed buttocks wounds Initialized on 12/11/19 12:22 - END OF NOTE No debridement was completed today Assessment/Plan Assessment: Same as above. Plan: Her left posterior flank opened area is pink from the shingles but is healed. Her right and left buttocks ulcers are both healed today. Will place Optifoam on the buttocks today for protection. Encouraged her to place A&D ointment as a barrier cream/ointment 1-[address] gaze over the left flank area to prevent any rubbing of clothes on the area. She is healed and discharged from the wound healing center. Follow up as needed. This note was generated with [employer] dictation software. It may contain incorrect words, spelling, and punctuation that were not noted in checking the note before signing. Office Visits / Consults: [id number] OV L3 Est
== END 2019-12-11 13:26 | disposition home or self-care (01) ==
LOC: WC 10:59
PROVIDERS: PCP Internal Medicine; Referring Provider Internal Medicine; Visit Provider Internal Medicine
DX: L89.311 Pressure ulcer of right buttock, stage 1 (principal); L98.492 Non-pressure chronic ulcer of skin of other sites with fat layer exposed; E11.9 Type 2 diabetes mellitus without complications

== ENCOUNTER → 2020-07-30 13:59 | Outpatient (CLI) | payer MEDICARE, SELFPAY ==
[2020-06-28 08:59] VITALS: BMI 46.1
--- NOTE | 2020-07-30 14:01 | CDU_ITS ---
Reason For Study: Stenosis Rt. Velocities/BP Lt. Velocities/BP Prox CCA 103 cm/sec. Prox CCA 117 cm/sec. Mid CCA 83 cm/sec. Mid CCA 81/3 cm/sec. Dist CCA 59/7 cm/sec. Dist CCA 80/8 cm/sec. Prox ICA 64/10 cm/sec. Prox ICA 49/8 cm/sec. Mid ICA 87/18 cm/sec. Mid ICA 64/11 cm/sec. Dist ICA 82/15 cm/sec. Dist ICA 129/21 cm/sec. Rt. ICA/CCA = 1.1. Lt. ICA/CCA = 1.6. Prox ECA 91 cm/sec. Prox ECA 100 cm/sec. Rt. Vert. 50/12 cm/sec. Lt. Vert. 60/8 cm/sec. Right Extracranial There is heterogeneous, irregular atherosclerotic plaque noted in the right common carotid artery. There is heterogeneous, irregular atherosclerotic plaque noted in the right internal carotid artery. There is heterogeneous, irregular atherosclerotic plaque noted in the right external carotid artery. Antegrade flow is noted in the right vertebral artery. Left Extracranial There is heterogeneous, irregular atherosclerotic plaque noted in the left common carotid artery. There is heterogeneous, irregular atherosclerotic plaque noted in the left internal carotid artery. The left internal carotid artery is very tortuous. There is intimal thickening but no significant atherosclerotic plaque noted in the left external carotid artery. Antegrade flow is noted in the left vertebral artery. Procedure Carotid Duplex [id number]. This is a Carotid Duplex examination using B-mode, color flow and specral Doppler. Exam performed in department. VL/Carotid Duplex Ultrasound Interpretation Summary Irregular calcific plaque of the proximal right internal carotid artery with le ss than 50% stenosis Less than 50% stenosis right external carotid Minimal irregular plaque at the proximal left internal carotid with a tortuous left internal carotid and less than 50% stenosis Patent and antegrade vertebral arteries bilaterally No change from the previous examination of June 17, 2019 Ordering Physician: Rita Chester Referring Physician: Flavia Aldrich Performed By: Eliane Potter, PANKAJ, RVT
== END ==
PROVIDERS: PCP Internal Medicine; Referring Provider Nurse Practitioner Family; Visit Provider Nurse Practitioner Family
DX: I63.512 Cerebral infarction due to unspecified occlusion or stenosis of left middle cerebral artery (principal); I65.29 Occlusion and stenosis of unspecified carotid artery
CPT/HCPCS: 93880

== ENCOUNTER 2020-09-12 17:16 | Inpatient (IN) | payer MEDICARE, SELFPAY ==
[2020-06-28 08:59] VITALS: BMI 46.1
[2020-09-12 17:18] VITALS: BP 111/49; PULSE 61; RESP 16; TEMP 36.9; O2SAT 96; BMI 43.4
--- NOTE | 2020-09-12 17:55 | RAD_ITS ---
STUDY: X-RAY CHEST REASON FOR EXAM: Female, 75 years old. FALL, PAIN TECHNIQUE: AP COMPARISON: None. FINDINGS: The lungs are clear and expanded. There is no demonstrated pleural abnormality. Normal size heart. Mitral valve calcifications are present. Normal mediastinum and pako. Normal visualized pulmonary arteries. There is atherosclerotic calcification of the aortic arch with tortuosity. No acute bony process. There is no demonstrated abnormality of the visualized soft tissue structures of the upper abdomen. RAD/Chest 1 View IMPRESSION: Nonacute portable x-ray examination of the chest. Electronically Signed: Juancho Lares MD ([place]oks) at 18:25 EDT , Service support ,
--- NOTE | 2020-09-12 17:55 | RAD_ITS ---
STUDY: X-RAY - LEFT FEMUR REASON FOR STUDY: Female, 75 years old. Fall, injury TECHNIQUE: 2 view(s) of the femur. COMPARISON: None. FINDINGS: Comminuted intratrochanteric fracture of the left proximal femur with varus deformity. Normal visualized soft tissue structure. There are degenerative changes of the left hip. There are atherosclerotic vascular calcifications. RAD/Femur Min 2 Views IMPRESSION: Left hip IT fracture. Electronically Signed: Juancho Lares MD (Brooks) at 18:09 EDT , Service support ,
--- NOTE | 2020-09-12 17:55 | RAD_ITS ---
STUDY: X-RAY - PELVIS REASON FOR EXAM: Female, 75 years old. Fall, pain, eval for fx TECHNIQUE: One view of the pelvis was obtained. COMPARISON: None. FINDINGS: There is a non-specific bowel gas pattern. Normal visualized soft tissue structures. Degenerative changes of the lumbar spine. Normal bilateral iliac wings, sacroiliac joints and visualized sacrum. Normal visualized bilateral superior and inferior pubic rami. Normal pubic symphysis. Normal ischial tuberosities. Normal visualized right femoral head. Normal right acetabulum. Normal right hip joint. Intertrochanteric fracture of the left proximal femur. Varus deformity. Normal left acetabulum. Normal left hip joint. RAD/Pelvis 1 or 2 Views IMPRESSION: Left IT proximal femur fracture. Electronically Signed: Juancho Lares MD (Brooks) at 18:24 EDT , Service support ,
--- NOTE | 2020-09-12 18:37 | EX.ED.DYSGE1 ---
HPI History of Present Illness Chief Complaint: Lower Extremity Injury Informant: patient Narrative Narrative: Patient is a 75-year-old female who presents to the emergency department for left hip pain after a fall. She states that she was trying to reach for her walker whenever she lost her balance. She fell onto her left side. She is complaining of left leg pain. She is not been able to ambulate since the event. She does not believe she hit her head. No loss of consciousness. She denies any neck or back pain. No other injury to other extremities. No chest pain or shortness of breath no abdominal pain or nausea/vomiting. She denies any loss of sensation in the leg. She is able to move the ankle well. She denies being on any anticoagulation but is on aspirin. [facility] Medical History (Updated 09/12/20 @ 19:[address] Jayna Putnam, ) Acute ischemic left middle cerebral artery (MCA) stroke Aphasia BPPV (benign paroxysmal positional vertigo) Cerebrovascular accident involving cerebellum CKD (chronic kidney disease), stage III Depression Diabetes mellitus, type II Diabetic nephropathy DVT (deep venous thrombosis) Dysarthria Dysmetabolic syndrome X Essential hypertension GERD (gastroesophageal reflux disease) Grade II diastolic dysfunction HLD (hyperlipidemia) Hypothyroid Hypoxia Intertrigo Iron deficiency Left atrial enlargement Morbid obesity with BMI of 40.0-44.9, adult Normochromic normocytic anemia Occlusion of right vertebral artery Physical debility Proteinuria Sleep-disordered breathing Urinary tract infection Home Medications multivitamin 1 ea PO DAILY 09/08/16 [History Last Taken 06/15/19] sitagliptin 50 mg PO DAILY 06/16/19 [History Last Taken 06/15/19] atorvastatin 40 mg PO QHS #30 tab 07/28/19 [Rx Last Taken Unknown] ferrous sulfate 325 mg PO DAILY@1200 #30 tab 07/28/19 [Rx Last Taken Unknown] glimepiride 1 mg PO DAILY #30 tab 07/28/19 [Rx Last Taken Unknown] magnesium oxide 400 mg PO DAILYCM #30 tab 07/28/19 [Rx Last Taken Unknown] nifedipine 30 mg PO DAILY #30 tab.er.24 07/28/19 [Rx Last Taken Unknown] sertraline 50 mg PO DAILY #30 tab 07/28/19 [Rx Last Taken Unknown] aspirin 325 mg tablet,delayed release 325 mg PO DAILY 09/01/19 [History Last Taken Unknown] fish oil-dha-epa 1,200 mg-144 mg-216 mg capsule 1,200 cap PO DAILY 09/01/19 [History Last Taken Unknown] fluticasone propionate 50 mcg/actuation nasal spray,suspension 2 spray INTRANASAL DAILY 09/01/19 [History Last Taken Unknown] ibuprofen 200 mg tablet 200 mg PO Q6H PRN 09/01/19 [History Last Taken Unknown] losartan 100 mg tablet 100 mg PO DAILY 09/01/19 [History Last Taken Unknown] sennosides 8.6 mg-docusate sodium 50 mg tablet 1 tab-cap PO Q OTHER DAY tab 09/01/19 [History Last Taken Unknown] esomeprazole magnesium 20 mg capsule,delayed release 20 mg PO Q OTHER DAY cap 09/09/19 [History Last Taken Unknown] atenolol 50 mg tablet 25 mg PO DAILY tab 03/10/20 [History Last Taken Unknown] levothyroxine 25 mcg tablet 100 mcg PO DAILY tab 03/10/20 [History Last Taken Unknown] Allergy/AdvReac Type Severity Reaction Status Date / Time adhesive tape Allergy Intermediate Unknown Verified 04/15/20 16:51 Sulfa (Sulfonamide Allergy Rash Verified 04/15/20 16:51 Antibiotics) lisinopril AdvReac cough Verified 04/15/20 16:51 Family History Grandfather Alcoholism Mother Angina at rest Arthritis Diabetes Myocardial infarction, Onset Age: 40 another @70 Heart disease Hypertension Sister Arthritis Bleeding disorder Blood clots Non Hodgkin's lymphoma Kidney cysts Osteoporosis Thyroid disorder Surgical History History of cataract extraction Social History Smoking Status: Never smoker alcohol intake: former details: Social substance use type: does not use ROS ROS ED Constitutional Constitutional ED: Denies chills or fever(s) Eyes Eyes: Denies change in vision ENT ENT ED: Denies epistaxis or rhinorrhea Cardiovascular Cardiovascular: Denies chest pain or palpitations Respiratory/Chest Respiratory/Chest: Denies cough, dyspnea or dyspnea on exertion Gastrointestinal Gastrointestinal: Denies abdominal pain, diarrhea, nausea or vomiting Musculoskeletal Musculoskeletal: Reports other Details: leg pain ; Denies back pain or neck pain Integumentary Denies rash Neurologic Neurologic: Denies dizziness, headache(s) or weakness EXAM Physical Exam Const Vital Signs: 09/12/20 17:18 Temperature 98.4 F Temperature Source Oral Pulse Rate 61 Respiratory Rate 16 Blood Pressure 111/49 L Blood Pressure Mean 69 Pulse Ox 96 Oxygen Delivery Method Room Air Positive obese General Appearance ED: NAD Nutritional Appearance: obese HEENT Reports normocephalic, head/scalp atraumatic and moist mucous membranes Eyes PERRL and EOMs intact bilaterally Neck no lymphadenopathy and supple General: Negative for tenderness Chest Wall inspection of chest normal Resp normal respiratory effort and clear to auscultation bilaterally Auscultation: Negative for rales, rhonchi or wheezes Cardio regular rate, regular rhythm and no murmurs GI normal to inspection, nondistended, normoactive bowel sounds and non-tender Palpation: soft; Negative for guarding or rebound tenderness present Back/Spine no CVA tenderness Extremity Extremity Narrative: Left leg is shortened and rotated externally. 2+ radial pulse. Sensation intact. Pain over the anterior femur and hip. Neuro CN's II-XII intact bilaterally and no sensory deficits noted Sensorium / Orientation: alert Motor Exam: strength 5/5 throughout Psych mental status grossly normal Skin no rashes or lesions noted MDM MDM MDM Narrative Medical decision making narrative: Patient presents to the ED after a mechanical fall. X-ray is obtained which did show a left intertrochanteric fracture. Patient declining anything for pain at this time. I did speak with orthopedic surgery who requested the patient be admitted to hospitalist for surgical clearance. Patient otherwise has been stable throughout ED stay. She understands and is agreeable with this plan. Will check basic lab work at hospitalist request for preop testing. Radiography Diagnostic Testing: Radiology Impression Chest X-Ray 09/12/20 17:55 IMPRESSION: Nonacute portable x-ray examination of the chest. Electronically Signed: Juancho Lares MD (Brooks) at 18:25 EDT , Service support , Femur X-Ray 09/12/20 17:55 IMPRESSION: Left hip IT fracture. Electronically Signed: Juancho Lares MD (Brooks) at 18:09 EDT , Service support , Pelvis X-Ray 09/12/20 17:55 IMPRESSION: Left IT proximal femur fracture. Electronically Signed: Juancho Lares MD (Brooks) at 18:24 EDT , Service support , Single view portable x-ray interpreted by myself. Clear lung dietz bilaterally. Normal cardiac silhouette. Normal mediastinum. Femur and pelvis x-ray interpreted by myself. There is a proximal intratrochanteric fracture. No distal fracture or dislocation noted. Agree with radiologist interpretations. Discharge Plan Dx/Rx/DC Orders Clinical Impression: Closed intertrochanteric fracture Disposition Disposition: Acute Care Hospital [facility] Discharge Date/Time: 09/12/20 20:04
--- NOTE | 2020-09-12 19:28 | HP.PCM.HOS_ITS ---
HPI - General HPI Narrative CATHERINE STOVER, is a 75 F who presented to the emergency department at [facility] on 09/12/2020 with a chief complaint of left hip pain after fall. She reported on admission that she was trying to reach for her walker and she lost her balance. She fell to the left side and on presentation was complaining of left leg/hip pain. She had not been able to ambulate since the event. She had no other injuries. She is a complex medical history. She is being seen by neurology for carotid artery stenosis. Her last visit with neurology was on 04/15/2020 and at that time they comment on 2 acute ischemic strokes in 2017 with some residual symptoms that include right upper extremity incoordination, gait imbalance, left lower extremity weakness and slight dysarthria. Neurology does note that the bilateral carotid stenosis is not hemodynamically significant. She takes aspirin 325 mg daily for this. She does have a history of DVT for which she was on warfarin in 2018. She also is followed by cardiology for paroxysmal atrial fibrillation and mitral valve stenosis that is mild to moderate. X-rays of her left femur and pelvis show a with varus deformity. Her chest x-ray is unremarkable. All lab work is pending. EKG was ordered for the a.m. as there was not one done in the emergen cy department. The emergency department discussed the case with Dr. Ba Cary and he will be consulted for surgical intervention. COUNTS INCLUDE 234 BEDS AT THE [facility] Medical History (Updated 09/12/20 @ 19:[address] Jayna Putnam, DO) Acute ischemic left middle cerebral artery (MCA) stroke Aphasia BPPV (benign paroxysmal positional vertigo) Cerebrovascular accident involving cerebellum CKD (chronic kidney disease), stage III Depression Diabetes mellitus, type II Diabetic nephropathy DVT (deep venous thrombosis) Dysarthria Dysmetabolic syndrome X Essential hypertension GERD (gastroesophageal reflux disease) Grade II diastolic dysfunction HLD (hyperlipidemia) Hypothyroid Hypoxia Intertrigo Iron deficiency Left atrial enlargement Morbid obesity with BMI of 40.0-44.9, adult Normochromic normocytic anemia Occlusion of right vertebral artery Physical debility Proteinuria Sleep-disordered breathing Urinary tract infection Home Medications multivitamin 1 ea PO DAILY 09/08/16 [History Last Taken 06/15/19] sitagliptin 50 mg PO DAILY 06/16/19 [History Last Taken 06/15/19] atorvastatin 40 mg PO QHS #30 tab 07/28/19 [Rx Last Taken Unknown] ferrous sulfate 325 mg PO DAILY@1200 #30 tab 07/28/19 [Rx Last Taken Unknown] glimepiride 1 mg PO DAILY #30 tab 07/28/19 [Rx Last Taken Unknown] magnesium oxide 400 mg PO DAILYCM #30 tab 07/28/19 [Rx Last Taken Unknown] nifedipine 30 mg PO DAILY #30 tab.er.24 07/28/19 [Rx Last Taken Unknown] sertraline 50 mg PO DAILY #30 tab 07/28/19 [Rx Last Taken Unknown] aspirin 325 mg tablet,delayed release 325 mg PO DAILY 09/01/19 [History Last Taken Unknown] fish oil-dha-epa 1,200 mg-144 mg-216 mg capsule 1,200 cap PO DAILY 09/01/19 [History Last Taken Unknown] fluticasone propionate 50 mcg/actuation nasal spray,suspension 2 spray INTRANASAL DAILY 09/01/19 [History Last Taken Unknown] ibuprofen 200 mg tablet 200 mg PO Q6H PRN 09/01/19 [History Last Taken Unknown] losartan 100 mg tablet 100 mg PO DAILY 09/01/19 [History Last Taken Unknown] sennosides 8.6 mg-docusate sodium 50 mg tablet 1 tab-cap PO Q OTHER DAY tab 09/01/19 [History Last Taken Unknown] esomeprazole magnesium 20 mg capsule,delayed release 20 mg PO Q OTHER DAY cap 09/09/19 [History Last Taken Unknown] atenolol 50 mg tablet 25 mg PO DAILY tab 03/10/20 [History Last Taken Unknown] levothyroxine 25 mcg tablet 100 mcg PO DAILY tab 03/10/20 [History Last Taken Unknown] Allergy/AdvReac Type Severity Reaction Status Date / Time adhesive tape Allergy Intermediate Unknown Verified 04/15/20 16:51 Sulfa (Sulfonamide Allergy Rash Verified 04/15/20 16:51 Antibiotics) lisinopril AdvReac cough Verified 04/15/20 16:51 Family History Grandfather Alcoholism Mother Angina at rest Arthritis Diabetes Myocardial infarction, Onset Age: 40 another @70 Heart disease Hypertension Sister Arthritis Bleeding disorder Blood clots Non Hodgkin's lymphoma Kidney cysts Osteoporosis Thyroid disorder Surgical History History of cataract extraction Social History Smoking Status: Never smoker alcohol intake: former details: Social substance use type: does not use ROS Review of Systems ROS Unobtainable: Denies due to encephalopathy, due to endotracheal tube, due to mental condition, due to mental status or other Constitutional Constitutional: Denies anorexia, change in weight, chills, fatigue, fever(s), malaise, night sweats, weakness or other Eyes Eyes: Denies blurry vision, change in eye color, change in vision, discharge from eye(s), double vision, erythema, eye pain, loss of vision or other ENT HEENT: Denies abnormal hearing, dysphagia, ear pain, epistaxis, headache(s), hearing loss, nasal congestion, nasal discharge, post nasal drip, sinus pressur e, sore throat or other Respiratory/Chest Respiratory/Chest: Denies cough, dyspnea, excessive phlegm production, hemoptysis, productive cough, shortness of breath at rest, shortness of breath with exertion, wheezing or other Gastrointestinal Gastrointestinal: Denies abdominal pain, coffee ground emesis, constipation, diarrhea, dyspepsia, hematemesis, hematochezia, loose stools, melena, nausea, vomiting or other Genitourinary Genitourinary: Denies burning urination, difficulty urinating, dysuria, hematuria, nocturia, urinary frequency, urinary hesitancy, urinary incontinence, urinary urgency or other Musculoskeletal Musculoskeletal: Reports arthralgias, joint pain and joint swelling Neurologic Neurologic: Reports abnormal gait, focal weakness and other Details: All neurological findings are chronic in nature Psychiatric Psychiatric: Denies anxiety, depression, homicidal ideation, suicidal ideation or other Endocrine Endocrinology: Denies change in body appearance, cold intolerance, excessive sweating, heat intolerance, polydipsia, polyuria or other Hematologic/Lymphatic Hematologic/Lymphatic: Denies anemia, easy bleeding, easy bruising, lymphadenopathy or other Allergic/Immunologic Allergic/Immunologic: Denies rhinitis, hives, eczemia, asthma or other Vital Signs Vital Signs Vital Signs: 09/12/20 17:18 Temperature 98.4 F Temperature Source Oral Pulse Rate 61 Respiratory Rate 16 Blood Pressure 111/49 L Blood Pressure Mean 69 Pulse Ox 96 Oxygen Delivery Method Room Air Weight Weight: 100.9 kg Body Mass Index (BMI) 43.4 Physical Exam Const alert, oriented x3, no apparent distress, healthy appearing and well nourished Constitutional Narrative: Morbidly obese white female sitting in bed, pediatric 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 at bedside, appears comfortable General Appearance: cooperative HEENT normocephalic, head/scalp atraumatic, hearing grossly normal bilaterally, moist oral mucous membranes and oropharynx normal HEENT Narrative: Mallampati 3, fair dentition, no thrush Mouth: oral and palatal mucosa normal Eyes PERRL, EOMs intact bilaterally and conjunctivae normal Neck no lymphadenopathy, supple and no JVD Resp normal respiratory effort, no retractions, no use of accessory muscles and clear to auscultation bilaterally Cardio regular rate, S1 normal heart sound, S2 normal heart sound, no rub, no gallops and no clicks Cardio Narrative: Irregular rhythm, 2+ systolic murmur GI normal to inspection, nondistended, normoactive bowel sounds, soft to palpation, non-tender and non-distended; Negative for hepatosplenomegaly Extremity no clubbing, cyanosis or edema Extremity Narrative: Left lower extremity is shortened and rotated externally Peripheral Pulses: Yes pulses 2+ throughout Skin no rashes or lesions noted, no wounds, skin turgor normal, no jaundice, no petechiae and no mottling Neuro oriented x3 and CN's II-XII intact bilaterally Sensorium / Orientation: awake, alert, oriented to person, oriented to place and oriented to time Speech: speech normal Psych affect normal Psych Narrative: Very pleasant Results Radiology Impression Chest X-Ray 09/12/20 17:55 IMPRESSION: Nonacute portable x-ray examination of the chest. Electronically Signed: Juancho Lares MD (Brooks) at 18:25 EDT , Service support , Femur X-Ray 09/12/20 17:55 IMPRESSION: Left hip IT fracture. Electronically Signed: Juancho Lares MD (Brooks) at 18:09 EDT , Service support , Pelvis X-Ray 09/12/20 17:55 IMPRESSION: Left IT proximal femur fracture. Electronically Signed: Juancho Lares MD (Brooks) at 18:24 EDT , Service support , Assessment & Plan Assessment/Plan (1) Hip fracture, left: (2) Mitral valve stenosis: QUALIFIERS: Cardiac valve disease etiology: etiology unspecified Qualified Code(s): I05.0 - Rheumatic mitral stenosis (3) Paroxysmal atrial fibrillation: (4) Acute ischemic left middle cerebral artery (MCA) stroke: (5) Cerebrovascular accident involving cerebellum: (6) CKD (chronic kidney disease), stage III: PLAN: Comminuted intertrochanteric fracture of the left proximal femur -Consult orthopedics for surgical intervention -Consult cardiology for surgical clearance given significant cardiac history -Last echo done showed an EF of 60% with stage II diastolic dysfunction and no wall motion abnormalities -Has nonhemodynamically significant carotid artery disease based on neurologists note from April 2020 -Most recent carotid Dopplers from 07/30/2020 appear stable -Hold aspirin full dose but restart as soon as possible -N.p.o. after midnight -EKG ordered for a.m. as one was not done in the emergency department CKD stage IIIb -BMP is pending -Serum creatinine has been stable at baseline at 1.45 -Follow-up BMP for reevaluation of current serum creatinine PAF -Continue atenolol -Continue full dose aspirin once okay with surgery History of DVT -Was treated for 6 months with Coumadin in 2018 History of stroke x2 -Follows with neurology -Nonhemodynamically significant carotid artery disease bilaterally -Takes full dose aspirin Bilateral carotid artery stenosis -Nonhemodynamically significant per neurology notes -Recent carotid Dopplers in July are stable Mild to moderate mitral valve stenosis -Follows with cardiology -Cardiology consult pending Hypertension/hyperlipidemia -Continue home medication GERD -Continue PPI Chronic anemia -CBC is pending -Continue iron supplementation DM-2 -Hold glimepiride and sitagliptin -SSI -Accu-Cheks -Carb controlled diet -Check hemoglobin A1c Morbid obesity -Complicates overall medical care, prognosis, outcomes -BMI is 43.4 SOPHIE -CPAP with 8 cm of water ordered -Would recommend extubation to CPAP after surgery Hypothyroidism -Continue levothyroxine Depression -Continue sertraline 50 mg daily DVT prophylaxis -Heparin twice daily CODE STATUS -Full code Charges/Coding Visit Charges Inpatient E&M: 35624 Init Hosp L3
[2020-09-12 19:45] VITALS: BP 132/82; PULSE 75; RESP 16; TEMP 36.4; O2SAT 94
[2020-09-12 19:50] LABS: Absolute Lymphocyte Count 0.82 X10^3/uL (0.83-4.51); Absolute Neutrophil Count 13.2 X10^3/uL (2.0-7.7); Basophil# 0.02 X10^3/uL; Basophil% 0.1 % (0-1); Eosinophils% 0.7 % (0-5); Hematocrit 35.4 % (37-47); Hemoglobin 11.3 g/dL (12.0-15.0); Lymphocyte # 0.82 X10^3/ul (0.83-4.51); Lymphocyte % 5.5 % (19-41); Mean Corp Hgb Conc 31.9 g/dL (32-36); Mean Corpuscular Hgb 30.5 pg (27.0-32.0); Mean Corpuscular Volume 95.4 fL (81-99); Mean Platelet Vol. 9.7 fl (6.2-12.0); Monocyte# 0.59 X10^3/uL; NRBC Flagged by Analyzer 0 % (0-5); Neutrophil % 89.2 % (47-70); Platelet Count 250 K/mm3 (150-450); RBC Distribution Width CV 13.1 % (11.6-14.6); RBC Distribution Width SD 45.5 fl (35.1-43.9); Red Blood Count 3.71 M/mm3 (4.2-5.4); White Blood Count 14.8 K/mm3 (4.4-11.0)
[2020-09-12] MEDS: Morphine 4 MG/ML Syringe IV (19:59)
[2020-09-12 20:00] LABS: Anion Gap 7 (5-15); BUN 37 mg/dL (7-18); BUN/Creat Ratio 26.4 RATIO (10-20); Calcium,Total 9.7 mg/dL (8.5-10.1); Chloride 106 mmol/L (98-107); EST Glomerular Filtration Rate 39 mL/min (>60); Est Glom Filt Rate - Afr Amer 47 mL/min (>60); Estimated Creatinine Clearance 24.56 ml/min; Glucose 170 mg/dL (74-106); Potassium 4.7 mmol/L (3.5-5.1); Sodium Level 141 mmol/L (136-145)
[2020-09-12 20:20] VITALS: BMI 41.5
[2020-09-12 20:25] VITALS: BP 130/59; PULSE 88; RESP 18; TEMP 36.8; O2SAT 89; O2SAT 94
[2020-09-12 20:44] VITALS: PULSE 82
[2020-09-12 22:00] VITALS: PULSE 84
[2020-09-12] MEDS: Acetaminophen 325 MG Tablet 650 MG PO (22:40)
[2020-09-12] MEDS: 0.9% Normal Saline 1,000 ML 70 ML IV (22:41)
[2020-09-12] MEDS: Atorvastatin Calcium 40 MG Tablet PO (22:45)
[2020-09-12] MEDS: Heparin Injection (Vial) 5,000 UNIT/ML VIAL 5000 UNIT SC (22:46)
[2020-09-12 23:44] VITALS: O2SAT 93
[2020-09-12 23:46] LABS: Bedside Glucose 193 mg/dL (70-110)
[2020-09-13] VITALS (20 sets, daily range): BP systolic 101–150; BP diastolic 47–72; PULSE 67–91; RESP 16–20; TEMP 36.1–37.2; O2SAT 91–98; BMI 41.5
--- NOTE | 2020-09-13 00:23 | CPS ---
Talked to patient about CPAP machine. She states that she doesn't wear one at home, because she is unable to tolerate it and wears oxygen at night in its place. Patient does not wish to wear one here
[2020-09-13] MEDS: Nystatin Powder 15gm Bottle 1 APPLIC TOPICAL ×2 (03:59→21:14)
[2020-09-13] MEDS: Menthol/Lanolin/Calamine/Znox 113 GM Tube 1 APPLIC TOPICAL ×2 (04:00→21:14)
[2020-09-13] MEDS: Morphine 2 MG/ML Syringe IV ×2 (04:14→09:32)
[2020-09-13] MEDS: 0.9% Saline Lock 10 ML Syringe IV (04:16)
[2020-09-13 05:06] LABS: Absolute Lymphocyte Count 1.07 X10^3/uL (0.83-4.51); Absolute Neutrophil Count 8.7 X10^3/uL (2.0-7.7); Basophil# 0.02 X10^3/uL; Basophil% 0.2 % (0-1); Eosinophil# 0.07 X10^3/uL; Eosinophils% 0.7 % (0-5); Hematocrit 33.4 % (37-47); Hemoglobin 10.5 g/dL (12.0-15.0); Lymphocyte # 1.07 X10^3/ul (0.83-4.51); Lymphocyte % 10.2 % (19-41); Mean Corp Hgb Conc 31.4 g/dL (32-36); Mean Corpuscular Hgb 30.4 pg (27.0-32.0); Mean Corpuscular Volume 96.8 fL (81-99); Mean Platelet Vol. 9.8 fl (6.2-12.0); Monocyte# 0.56 X10^3/uL; Monocyte% 5.3 % (0-10); NRBC Flagged by Analyzer 0 % (0-5); Neutrophil # 8.74 X10^3/uL (2.7-7.7); Neutrophil % 82.9 % (47-70); Platelet Count 237 K/mm3 (150-450); RBC Distribution Width CV 12.9 % (11.6-14.6); Red Blood Count 3.45 M/mm3 (4.2-5.4); White Blood Count 10.5 K/mm3 (4.4-11.0)
[2020-09-13] MEDS: Levothyroxine 100 MCG Tablet PO (05:31)
[2020-09-13 05:32] LABS: ALB/GLOB Ratio 0.7 RATIO (0.9-2.4); AST(SGOT) 26 U/L (15-37); Alanine Aminotransfer ALT/SGPT 24 U/L (13-56); Albumin, Serum 2.8 g/dL (3.2-5.0); Alkaline Phosphatase 90 U/L (45-117); Anion Gap 6 (5-15); BUN 34 mg/dL (7-18); Chloride 106 mmol/L (98-107); Creatinine, Serum 1.26 mg/dL (0.55-1.02); EST Glomerular Filtration Rate 44 mL/min (>60); Est Glom Filt Rate - Afr Amer 53 mL/min (>60); Estimated Creatinine Clearance 27.28 ml/min; Globulin 3.9 g/dL (2.2-4.2); Glucose 185 mg/dL (74-106); Magnesium 2.2 mg/dL (1.6-2.6); Phosphorus 3.7 mg/dL (2.5-4.9); Potassium 4.7 mmol/L (3.5-5.1); Protein, Total 6.7 g/dL (6.4-8.2); Sodium Level 140 mmol/L (136-145); Thyroid Stim Hormone (TSH) 8.02 uIU/mL (0.358-3.74)
--- NOTE | 2020-09-13 06:00 | EKG12_ITS ---
Test Reason : AM EKG Blood Pressure : / mmHG Vent. Rate : 075 BPM Atrial Rate : 076 BPM P-R Int : 166 ms QRS Dur : 092 ms QT Int : 416 ms P-R-T Axes : 032 035 039 degrees QTc Int : 464 ms Normal sinus rhythm Normal ECG When compared with ECG of 16-JUN-2019 17:35, No significant change was found Confirmed by CORA LIPSCOMB, OK ([id number]), film and video editor LINDSAY NIELSON ([id number]) on 09/14/2020 9:15:03 AM Referred By: OLVIN Confirmed By:OK SHEPHERD MD
[2020-09-13 06:41] LABS: Bedside Glucose 158 mg/dL (70-110)
--- NOTE | 2020-09-13 07:42 | CON.PCM.CA_ITS ---
Assessment & Plan Assessment/Plan (1) Preop cardiovascular exam: PLAN: In terms of her preoperative cardiovascular exam it appears that she is fairly optimized. She does not have any acute or ongoing issues. Her last echocardiogram demonstrated preserved ejection fraction from 2 years ago. I would recommend that we continue monitoring her postoperatively for any evidence of atrial fibrillation. I have communicated this to the patient as well as her nurse. (2) Essential hypertension: PLAN: Her blood pressure is under good control at this time and I would not suggest we make any changes with respect to her medications she should take her blood pressure medications up to and including the day of surgery. (3) Mitral valve stenosis: QUALIFIERS: Cardiac valve disease etiology: etiology unspecified Qualified Code(s): I05.0 - Rheumatic mitral stenosis PLAN: She does have moderate mitral stenosis by echocardiographic criteria from September 2019. I do not think there is a reason to repeat the above. At this time it does not appear that she does have any symptomatic mitral stenosis. (4) Paroxysmal atrial fibrillation: PLAN: She does have a history of paroxysmal atrial fibrillation. She is in sinus rhythm at this time I would recommend we limit fluid intake to prevent left atrial stretch thus facilitating atrial fibrillation. Thank you for allowing me to participate in the care of your patient. Please don't hesitate to call if any issues arise. HPI Consult Data Date of Consult: 09/13/20 HPI Narrative HPI Narrative: CATHERINE STOVER, is a 75 F who presents to the emergency room with a chief complaint of her left hip pain after a fall. She was admitted and diagnosed with a fracture of the above. She does have a history of previous c erebrovascular accident in 2017 with residual symptoms which include upper extremity incoordination, gait and balance and left lower extremity weakness. She also has mild dysarthria. She has mild carotid disease. She has had evidence of paroxysmal atrial fibrillation for which she has been followed by cardiology and hence this consultation. She remains completely asymptomatic. She denies any chest pain, no shortness of breath, no palpitations, no paroxysmal nocturnal dyspnea, no dizziness, no diaphoresis and no near syncope. She does have a previous echocardiogram which demonstrated preserved left ventricular systolic function and moderate mitral stenosis. [facility] [place] Medical History Acute ischemic left middle cerebral artery (MCA) stroke Aphasia BPPV (benign paroxysmal positional vertigo) Cerebrovascular accident involving cerebellum CKD (chronic kidney disease), stage III Depression Diabetes mellitus, type II Diabetic nephropathy DVT (deep venous thrombosis) Dysarthria Dysmetabolic syndrome X Essential hypertension GERD (gastroesophageal reflux disease) Grade II diastolic dysfunction HLD (hyperlipidemia) Hypothyroid Hypoxia Intertrigo Iron deficiency Left atrial enlargement Morbid obesity with BMI of 40.0-44.9, adult Normochromic normocytic anemia Occlusion of right vertebral artery Physical debility Proteinuria Sleep-disordered breathing Urinary tract infection Home Medications multivitamin 1 ea PO DAILY 09/08/16 [History Last Taken 06/15/19] sitagliptin 50 mg PO DAILY 06/16/19 [History Last Taken 06/15/19] atorvastatin 40 mg PO QHS #30 tab 07/28/19 [Rx Last Taken Unknown] ferrous sulfate 325 mg PO DAILY@1200 #30 tab 07/28/19 [Rx Last Taken Unknown] glimepiride 1 mg PO DAILY #30 tab 07/28/19 [Rx Last Taken Unknown] magnesium oxide 400 mg PO DAILYCM #30 tab 07/28/19 [Rx Last Taken Unknown] nifedipine 30 mg PO DAILY #30 tab.er.24 07/28/19 [Rx Last Taken Unknown] sertraline 50 mg PO DAILY #30 tab 07/28/19 [Rx Last Taken Unknown] aspirin 325 mg tablet,delayed release 325 mg PO DAILY 09/01/19 [History Last Chuy en Unknown] fish oil-dha-epa 1,200 mg-144 mg-216 mg capsule 1,200 cap PO DAILY 09/01/19 [History Last Taken Unknown] fluticasone propionate 50 mcg/actuation nasal spray,suspension 2 spray INTRANASAL DAILY 09/01/19 [History Last Taken Unknown] ibuprofen 200 mg tablet 200 mg PO Q6H PRN 09/01/19 [History Last Taken Unknown] losartan 100 mg tablet 100 mg PO DAILY 09/01/19 [History Last Taken Unknown] sennosides 8.6 mg-docusate sodium 50 mg tablet 1 tab-cap PO Q OTHER DAY tab 09/01/19 [History Last Taken Unknown] esomeprazole magnesium 20 mg capsule,delayed release 20 mg PO Q OTHER DAY cap 09/09/19 [History Last Taken Unknown] atenolol 50 mg tablet 25 mg PO DAILY tab 03/10/20 [History Last Taken Unknown] levothyroxine 25 mcg tablet 100 mcg PO DAILY tab 03/10/20 [History Last Taken Unknown] Allergy/AdvReac Type Severity Reaction Status Date / Time adhesive tape Allergy Intermediate Unknown Verified 04/15/20 16:51 Sulfa (Sulfonamide Allergy Rash Verified 04/15/20 16:51 Antibiotics) lisinopril AdvReac cough Verified 04/15/20 16:51 Family History Grandfather Alcoholism Mother Angina at rest Arthritis Diabetes Myocardial infarction, Onset Age: 40 another @70 Heart disease Hypertension Sister Arthritis Bleeding disorder Blood clots Non Hodgkin's lymphoma Kidney cysts Osteoporosis Thyroid disorder Surgical History History of cataract extraction Social History Smoking Status: Never smoker alcohol intake: former details: Social substance use type: does not use ROS Constitutional Constitutional: Denies fever(s) or weight loss Eyes Eyes: Reports as per HPI ENT HEENT: Reports as per HPI Cardiovascular Cardiovascular: Reports other Respiratory/Chest Respiratory/Chest: Reports other Gastrointestinal Gastrointestinal: Denies change in bowel habits, nausea, vomiting or weight changes Genitourinary Genitourinary: Denies difficulty urinating Musculoskeletal Musculoskeletal: Denies joint stiffness or muscle weakness Integumentary Integumentary: Denies lesions Neurologic Neurologic: Denies dizziness or syncope Psychiatric Psychiatric: Denies anxiety Endocrine Endocrinology: Denies excessive sweating or fatigue Hematologic/Lymphatic Hematologic/Lymphatic: Denies anemia Allergic/Immunologic Allergic/Immunologic: Denies seasonal rhinorrhea Physical Exam Const oriented x3 and healthy appearing Orientation / Consciousness: awake HEENT normocephalic Eyes PERRL and conjunctivae normal Neck supple, no JVD and no carotid bruits Chest inspection of chest normal Resp normal respiratory effort and clear to auscultation bilaterally Cardio Palpation: normal PMI Rate: regular rate Rhythm: regular rhythm Heart Sounds: S1 normal and S2 normal Peripheral Pulses: pulses 2+ throughout GI normal to inspection, nondistended, normoactive bowel sounds Extremity normal to inspection and no clubbing, cyanosis or edema Psych mental status grossly normal Objective Data Vital Signs: Vital Signs Temp Pulse Resp BP Pulse Ox 98.5 F 68 16 145/72 H 98 09/13/20 03:50 09/13/20 07:31 09/13/20 04:14 09/13/20 03:50 09/13/20 03:50 Oxygen Flow Rate (L/min) 2 Oxygen Delivery Method Nasal Cannula Weight: 212 lb 15.465 oz Body Mass Index (BMI) 41.5 Intake & Output: Intake and Output for Last 24 Hours 09/11/20 09/12/20 09/13/20 23:59 23:59 23:59 Intake Total 50 / 50 Output Total 0 / 0 Balance 50 / 50 Lab / Micro Data Result Diagrams: 09/13/20 04:58 09/13/20 04:58 Labs: Laboratory Results - last 24 hr 09/12/20 09/12/20 09/12/20 19:40 19:40 23:02 WBC 14.8 H RBC 3.71 L Hgb 11.3 L Hct 35.4 L MCV 95.4 MCH 30.5 MCHC 31.9 L RDW Std Deviation 45.5 H RDW Coeff of Umu 13.1 Plt Count 250 MPV 9.7 Immature Gran % (Auto) 0.500 Neut % (Auto) 89.2 H Lymph % (Auto) 5.5 L [place] % (Auto) 4.0 Eos % (Auto) 0.7 Baso % (Auto) 0.1 Absolute Neuts (auto) 13.2 H Absolute Lymphs (auto) 0.82 L Nucleated RBC % 0 Sodium 141 Potassium 4.7 Chloride 106 Carbon Dioxide 28.0 Anion Gap 7 BUN 37 H Creatinine 1.40 H Estim Creat Clear Calc 24.56 Est GFR (MDRD) Af Amer 47 L Est GFR (MDRD) Non-Af 39 L BUN/Creatinine Ratio 26.4 H Glucose 170 H Calcium 9.7 Phosphorus Magnesium Total Bilirubin AST ALT Alkaline Phosphatase Total Protein Albumin Globulin Albumin/Globulin Ratio TSH POC Glucose 193 H Blood Type Antibody Screen 09/13/20 09/13/20 09/13/20 04:58 04:58 04:58 WBC 10.5 RBC 3.45 L Hgb 10.5 L Hct 33.4 L MCV 96.8 MCH 30.4 MCHC 31.4 L RDW Std Deviation 46.0 H RDW Coeff of Umu 12.9 Plt Count 237 MPV 9.8 Immature Gran % (Auto) 0.700 Neut % (Auto) 82.9 H Lymph % (Auto) 10.2 L [place] % (Auto) 5.3 Eos % (Auto) 0.7 Baso % (Auto) 0.2 Absolute Neuts (auto) 8.7 H Absolute Lymphs (auto) 1.07 Nucleated RBC % 0 Sodium 140 Potassium 4.7 Chloride 106 Carbon Dioxide 28.0 Anion Gap 6 BUN 34 H Creatinine 1.26 H Estim Creat Clear Calc 27.28 Est GFR (MDRD) Af Amer 53 L Est GFR (MDRD) Non-Af 44 L BUN/Creatinine Ratio 27.0 H Glucose 185 H Calcium 9.0 Phosphorus 3.7 Magnesium 2.2 Total Bilirubin 0.40 AST 26 ALT 24 Alkaline Phosphatase 90 Total Protein 6.7 Albumin 2.8 L Globulin 3.9 Albumin/Globulin Ratio 0.7 L TSH 8.02 H POC Glucose Blood Type O NEGATIVE Antibody Screen NEGATIVE 09/13/20 06:33 WBC RBC Hgb Hct MCV MCH MCHC RDW Std Deviation RDW Coeff of Umu Plt Count MPV Immature Gran % (Auto) Neut % (Auto) Lymph % (Auto) [place] % (Auto) Eos % (Auto) Baso % (Auto) Absolute Neuts (auto) Absolute Lymphs (auto) Nucleated RBC % Sodium Potassium Chloride Carbon Dioxide Anion Gap BUN Creatinine Estim Creat Clear Calc Est GFR (MDRD) Af Amer Est GFR (MDRD) Non-Af BUN/Creatinine Ratio Glucose Calcium Phosphorus Magnesium Total Bilirubin AST ALT Alkaline Phosphatase Total Protein Albumin Globulin Albumin/Globulin Ratio TSH POC Glucose 158 H Blood Type Antibody Screen Micro: Microbiology 09/13/20 03:50 Mucosa - Nose SARS-CoV-2 Antigen (Rapid) - Final Cardiology Labs/Tests 09/12/20 19:40: WBC 14.8 H, RBC 3.71 L, Hgb 11.3 L, Hct 35.4 L, MCV 95.4, MCH 30.5, MCHC 31.9 L, Plt Count 250, MPV 9.7, Immature Gran % (Auto) 0.500, Neut % (Auto) 89.2 H, Lymph % (Auto) 5.5 L, [place] % (Auto) 4.0, Eos % (Auto) 0.7, Baso % (Auto) 0.1, Absolute Neuts (auto) 13.2 H, Nucleated RBC % 0 09/12/20 19:40: Sodium 141, Potassium 4.7, Chloride 106, Carbon Dioxide 28.0, Anion Gap 7, BUN 37 H, Creatinine 1.40 H, Est GFR (MDRD) Af Amer 47 L, Est GFR (MDRD) Non-Af 39 L, BUN/Creatinine Ratio 26.4 H, Glucose 170 H, Calcium 9.7 09/13/20 04:58: WBC 10.5, RBC 3.45 L, Hgb 10.5 L, Hct 33.4 L, MCV 96.8, MCH 30.4, MCHC 31.4 L, Plt Count 237, MPV 9.8, Immature Gran % (Auto) 0.700, Neut % (Auto) 82.9 H, Lymph % (Auto) 10.2 L, [place] % (Auto) 5.3, Eos % (Auto) 0.7, Baso % (Auto) 0.2, Absolute Neuts (auto) 8.7 H, Nucleated RBC % 0 09/13/20 04:58: Sodium 140, Potassium 4.7, Chloride 106, Carbon Dioxide 28.0, Anion Gap 6, BUN 34 H, Creatinine 1.26 H, Est GFR (MDRD) Af Amer 53 L, Est GFR (MDRD) Non-Af 44 L, BUN/Creatinine Ratio 27.0 H, Glucose 185 H, Calcium 9.0, Phosphorus 3.7, Magnesium 2.2, Total Bilirubin 0.40 Rhythm: EKG: Normal sinus rhythm with no acute changes ECHO: Stress Test: Cardiac Cath: PCI: CT Surgery: Holter monitor: EPS: PPM: CXR: Chest CT Scan: Radiography Diagnostic Testing: Radiology Impression Chest X-Ray 09/12/20 17:55 IMPRESSION: Nonacute portable x-ray examination of the chest. Electronically Signed: Juancho Lares MD ([place]) at 18:25 EDT , Service support , Femur X-Ray 09/12/20 17:55 IMPRESSION: Left hip IT fracture. Electronically Signed: Juancho Lares MD ([place]) at 18:09 EDT , Service support , Pelvis X-Ray 09/12/20 17:55 IMPRESSION: Left IT proximal femur fracture. Electronically Signed: Juancho Lares MD ([place]) at 18:24 EDT , Service support ,
[2020-09-13 07:49] LABS: Hemoglobin A1c 5.7 % (3.8-5.6)
--- NOTE | 2020-09-13 09:04 | PCM.PN.HOSP ---
Subjective Subjective Patient fell down and had left comminuted intratrochanteric hip fracture. History of prior to strokes with right-sided weakness, moderate aphasia. He is walker for walking. Scheduled for surgery today. Discussed with the nursing staff. Did not had good urine output/no urine output on Peuriex catheter. Bladder scan shows more than 250 mL urine. Hoskins catheter ordered as patient is going for hip surgery Objective Data Objective Data Vital Signs: Vital Signs Temp Pulse Resp BP Pulse Ox 98.5 F 68 16 145/72 H 94 09/13/20 03:50 09/13/20 07:31 09/13/20 04:14 09/13/20 03:50 09/13/20 08:03 Oxygen Flow Rate (L/min) 3 Oxygen Delivery Method Nasal Cannula Weight: 212 lb 15.465 oz Body Mass Index (BMI) 41.5 Intake & Output: Intake and Output for Last 24 Hours 09/11/20 09/12/20 09/13/20 23:59 23:59 23:59 Intake Total 50 / 50 Output Total 0 / 0 Balance 50 / 50 Lab / Micro Data Result Diagrams: 09/13/20 04:58 09/13/20 04:58 Labs: Laboratory Results - last 24 hr 09/12/20 09/12/20 09/12/20 19:40 19:40 23:02 WBC 14.8 H RBC 3.71 L Hgb 11.3 L Hct 35.4 L MCV 95.4 MCH 30.5 MCHC 31.9 L RDW Std Deviation 45.5 H RDW Coeff of Umu 13.1 Plt Count 250 MPV 9.7 Immature Gran % (Auto) 0.500 Neut % (Auto) 89.2 H Lymph % (Auto) 5.5 L Darke % (Auto) 4.0 Eos % (Auto) 0.7 Baso % (Auto) 0.1 Absolute Neuts (auto) 13.2 H Absolute Lymphs (auto) 0.82 L Nucleated RBC % 0 Sodium 141 Potassium 4.7 Chloride 106 Carbon Dioxide 28.0 Anion Gap 7 BUN 37 H Creatinine 1.40 H Estim Creat Clear Calc 24.56 Est GFR (MDRD) Af Amer 47 L Est GFR (MDRD) Non-Af 39 L BUN/Creatinine Ratio 26.4 H Glucose 170 H Hemoglobin A1c Calcium 9.7 Phosphorus Magnesium Total Bilirubin AST ALT Alkaline Phosphatase Total Protein Albumin Globulin Albumin/Globulin Ratio TSH POC Glucose 193 H Blood Type Antibody Screen 09/13/20 09/13/20 09/13/20 04:58 04:58 04:58 WBC 10.5 RBC 3.45 L Hgb 10.5 L Hct 33.4 L MCV 96.8 MCH 30.4 MCHC 31.4 L RDW Std Deviation 46.0 H RDW Coeff of Umu 12.9 Plt Count 237 MPV 9.8 Immature Gran % (Auto) 0.700 Neut % (Auto) 82.9 H Lymph % (Auto) 10.2 L Darke % (Auto) 5.3 Eos % (Auto) 0.7 Baso % (Auto) 0.2 Absolute Neuts (auto) 8.7 H Absolute Lymphs (auto) 1.07 Nucleated RBC % 0 Sodium 140 Potassium 4.7 Chloride 106 Carbon Dioxide 28.0 Anion Gap 6 BUN 34 H Creatinine 1.26 H Estim Creat Clear Calc 27.28 Est GFR (MDRD) Af Amer 53 L Est GFR (MDRD) Non-Af 44 L BUN/Creatinine Ratio 27.0 H Glucose 185 H Hemoglobin A1c 5.7 H Calcium 9.0 Phosphorus 3.7 Magnesium 2.2 Total Bilirubin 0.40 AST 26 ALT 24 Alkaline Phosphatase 90 Total Protein 6.7 Albumin 2.8 L Globulin 3.9 Albumin/Globulin Ratio 0.7 L TSH 8.02 H POC Glucose Blood Type Antibody Screen 09/13/20 09/13/20 04:58 06:33 WBC RBC Hgb Hct MCV MCH MCHC RDW Std Deviation RDW Coeff of Umu Plt Count MPV Immature Gran % (Auto) Neut % (Auto) Lymph % (Auto) Darke % (Auto) Eos % (Auto) Baso % (Auto) Absolute Neuts (auto) Absolute Lymphs (auto) Nucleated RBC % Sodium Potassium Chloride Carbon Dioxide Anion Gap BUN Creatinine Estim Creat Clear Calc Est GFR (MDRD) Af Amer Est GFR (MDRD) Non-Af BUN/Creatinine Ratio Glucose Hemoglobin A1c Calcium Phosphorus Magnesium Total Bilirubin AST ALT Alkaline Phosphatase Total Protein Albumin Globulin Albumin/Globulin Ratio TSH POC Glucose 158 H Blood Type O NEGATIVE Antibody Screen NEGATIVE Micro: Microbiology 09/13/20 03:50 Mucosa - Nose SARS-CoV-2 Antigen (Rapid) - Final Radiography Diagnostic Testing: Radiology Impression Chest X-Ray 09/12/20 17:55 IMPRESSION: Nonacute portable x-ray examination of the chest. Electronically Signed: Juancho Lares MD ([place]) at 18:25 EDT , Service support , Femur X-Ray 09/12/20 17:55 IMPRESSION: Left hip IT fracture. Electronically Signed: Juancho Lares MD ([place]) at 18:09 EDT , Service support , Pelvis X-Ray 09/12/20 17:55 IMPRESSION: Left IT proximal femur fracture. Electronically Signed: Juancho Lares MD ([place]) at 18:24 EDT , Service support , Physical Exam Narrative General: Alert, Oriented x3, Cooperative morbid obesity BMI 41.6 kg/m? HEENT: Atraumatic, PERRLA, EOMI, Normocephalic Oral: No Gingival or Mucosal Lesions/ Ulcerations Neck: Supple, No JVD, Negative Carotid Bruits Lungs: Air entry diminished in bilateral lung bases. No crepitation/rhonchi Cardiovascular: Regular rate, Regular Rhythm, Normal S1, Normal S2, ejection systolic murmur over LLSB and cardiac apex. Abdomen: Bowel Sounds Present, Soft, Non Tender, Non-Distended. 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 : No renal angle tenderness. No suprapubic tenderness. Extremities: No edema, Capillary Refill Less than 3 Seconds Skin: No rashes, No breakdown Musculoskeletal: Tenderness over left hip region. Bilateral knee arthritis. Right hip pain knee power 4+/5 Neurological: Right-sided residual weakness with moderate aphasia. Psych/Mental Status: Normal Affect, Appropriate. Assessment & Plan Assessment/Plan (1) Hip fracture, left: QUALIFIERS: Encounter type: initial encounter PLAN: 75-year-old female was admitted on [facility] after a fall complicating into left hip pain with intertrochanteric fracture 1. Acute closed comminuted intertrochanteric fracture of the left proximal femur: The patient was seen by spinning and winding supervisor for preoperative cardiovascular risk evaluation and she seems fairly optimized. No chest pain or shortness of breath. Blood pressure is controlled. Twelve-lead EKG shows normal sinus rhythm with no acute changes. Patient has moderate mitral valve stenosis, EF 60% with stage II diastolic dysfunction as per echo September 2019. Paroxysmal A. fib, currently in normal sinus rhythm and heart rate is controlled. Limited fluid intake, suggested by spinning and winding supervisor to prevent left atrial stretch to precipitate A. fib. Continue baby aspirin. 2. Paroxysmal A. fib, moderate mitral stenosis: As mentioned above 3. CKD stage IIIb: BUN/creatinine mildly elevated but better than baseline 1.4. 4. History of DVT -Was treated for 6 months with Coumadin in 2018 5. History of stroke x2 with residual right-sided weakness and mild aphasia and mild bilateral carotid stenosis. Patient follows neurologist. Nonhemodynamically significant carotid artery disease based on neurologist note of April 2020. 6. Hypertension/hyperlipidemia -Continue home medication 7. GERD -Continue PPI 8. Chronic anemia: Hemoglobin 10.5. MCV 96.8 suggestive of anemia of chronic disease. RDW normal. H&H in the evening. On iron supplementation. 9. DM-2 -Hold glimepiride and sitagliptin. Accu-Chek insulin is covered with Humalog sliding scale. A1c 5.7%. 10. Other comorbidities include obstructive sleep apnea, hypothyroidism, anxiety and depression and morbid obesity: BMI 43.4. Multiple comorbidities complicates the present care and expect difficult and delay recovery 11. DVT prophylaxis -Heparin twice daily CODE STATUS -Full code Charges/Coding Visit Charges Inpatient E&M: 07226 Subs Hosp L2
[2020-09-13] MEDS: Magnesium Chloride 64 MG Delay Rel.Tablet 128 MG PO (09:23)
[2020-09-13] MEDS: NIFEdipine 30 MG Tablet PO (09:25)
[2020-09-13] MEDS: Losartan Potassium 100 MG Tablet PO (09:26)
[2020-09-13] MEDS: Atenolol 25 MG Tablet PO (09:26)
[2020-09-13] MEDS: Fluticasone 0.05% 1 SPRAY NASAL.SRY 2 SPRAY NASAL (09:27)
--- NOTE | 2020-09-13 09:44 | NURSING ---
wound photo: abdomen
--- NOTE | 2020-09-13 10:36 | CASEMGMT ---
SW met w/pt in room in regard to prior level of care, and anticipated discharge plan. PCP: Dr. Aldrich Specialists: Dr. Fuentes, cardiology. Pt also has a neurologist, cannot recall name. Insurance/Prescription coverage: [employer] Medicare LNOK: Pt's primary support is pt's sister, Norah Weienr LW/POA: Pt does not have these documents, may be interested in completing them after surgery, not today. Pt states her sister is her only family and would be her POA. Prior level of function/Living arrangements: Pt lives home alone in an apartment in [place], no steps to enter. Pt is independent with personal care ADLs such as bathing and using the bathroom. Pt's sister gets pt her mail, helps organize her meds, takes pt to appointments. Pt does not drive. Pt has a person to do the cleaning, and has Meals on Wheels delivered. DME/HHC/SNF: Pt has a walker and uses at baseline, has a shower chair and a comfort height commode. Pt has a history of [facility], and also is active with [facility]. Pt has been to [facility] in the past, and to this hospital's rehab. Plan: Pt agreeable to SNF at discharge. Pt given list of nursing homes in her preferred geographic area that takes her insurance and can manage her medical needs, complete with quality and resource use data. Pt's first choice is TCU, she may be open to [facility] or [facility] if TCU does not have a bed. KARIS called TCU, pt's name on the list, Evelina will let SW know if they have a bed available when pt is closer to discharge. KARIS explained this to pt, and let her know we can talk tomorrow about second choices if needed. Pt states understanding. KARIS spoke w/Carlos Eduardo at [facility] to let her know pt is here. KARIS will follow up w/pt tomorrow post-op. OPAL Carcamo
--- NOTE | 2020-09-13 11:19 | NURSING ---
Pt has a Purewick in place and still has not voided. This nurse talked with Dr. Talamantes and Dr. Talamantes feels that since pt is having surgery today and some retention (bladder scanned by fur finisher seamstress) that this nurse is to go ahead and place a tellez.
[2020-09-13] MEDS: 0.9% Normal Saline 1,000 ML 70 ML IV ×2 (12:08→21:14)
[2020-09-13 12:20] LABS: Bedside Glucose 104 mg/dL (70-110)
--- NOTE | 2020-09-13 15:46 | CASEMGMT ---
TCU will be able to take pt, will start precert postop after pt has had PT/OT. SW will inform pt tomorrow. OPAL Carcamo
--- NOTE | 2020-09-13 15:52 | NURSING ---
Went down Via bed to surgery at this time.
--- NOTE | 2020-09-13 16:31 | CHAPLAIN ---
Type of Pastoral Visit _x__ Initial Visit ___ Follow-up Visit ___ On-call Visit ___ General Patient Visit ___ Spiritual Assessment ___ Family Conference ___ Bereavement ___ Rapid Response ___ Code Blue ___ Other (describe below) Pastoral Care Referral From _x__ Patient ___ Family ___ Nurse ___ Physician ___ Elastic Attacher Overlock ___ Back Tender Cylinder ___ Other (describe below) Sacrament/Intervention _x__ Active listening ___ Anointing ___ Anglican ___ Bereavement ___ Communion _x__ Farida exploration ___ _x__ Life review _x__ Prayer ___ Reconciliation ___ Sacrament of Sick _x__ Supportive presence ___ Wedding ___ Other (describe below) Pastoral Comments
--- NOTE | 2020-09-13 16:44 | CON.PCM_ITS ---
Assessment & Plan Assessment/Plan (1) Hip fracture, left: QUALIFIERS: Encounter type: initial encounter PLAN: Dr. Ba Cary did discuss and review with patient all treatment options including surgical versus nonsurgical at this time the patient does wish to proceed with open reduction internal fixation of left hip fracture. Potential risk benefits and complications of this procedure were reviewed in detail including but not limited to , infection, nerve and blood vessel damage, persistent pain, numbness tingling paresthesias, blood clot, pulmonary embolism, and the requirement for possible further surgery. Patient expressed full understanding has no further questions for the doctor does agree to proceed with the above-stated procedure and has signed the appropriate surgery consent form we did discuss and reviewed the risks associated with the COVID-19 pandemic. All the patient's questions were answered. HPI Consult Data Date of Consult: 09/13/20 HPI Narrative HPI Narrative: CATHERINE STOVER, is a 75 F who presented to [facility] emergency department September 12, 2020. Mechanical fall at home she was trying to reach her walker lost her balance and landed directly on the left leg. Hip was normal and pain-free prior to the injury. No head injury or loss of consciousness. X-rays in the emergency department revealed an intertrochanteric hip fracture. She was admitted to medical surgical unit at [facility] orthopedics was consulted. She currently denies chest pain shortness of breath dizziness or calf pain no numbness or tingling into her feet. No knee or ankle pain. [facility] Medical History Acute ischemic left middle cerebral artery (MCA) stroke Aphasia BPPV (benign paroxysmal positional vertigo) Cerebrovascular accident involving cerebellum CKD (chronic kidney disease), stage III Depression Diabetes mellitus, type II Diabetic nephropathy DVT (deep venous thrombosis) Dysarthria Dysmetabolic syndrome X Essential hypertension GERD (gastroesophageal reflux disease) Grade II diastolic dysfunction HLD (hyperlipidemia) Hypothyroid Hypoxia Intertrigo Iron deficiency Left atrial enlargement Morbid obesity with BMI of 40.0-44.9, adult Normochromic normocytic anemia Occlusion of right vertebral artery Physical debility Proteinuria Sleep-disordered breathing Urinary tract infection Home Medications multivitamin 1 ea PO DAILY 09/08/16 [History Last Taken 06/15/19] sitagliptin 50 mg PO DAILY 06/16/19 [History Last Taken 06/15/19] atorvastatin 40 mg PO QHS #30 tab 07/28/19 [Rx Last Taken Unknown] ferrous sulfate 325 mg PO DAILY@1200 #30 tab 07/28/19 [Rx Last Taken Unknown] glimepiride 1 mg PO DAILY #30 tab 07/28/19 [Rx Last Taken Unknown] magnesium oxide 400 mg PO DAILYCM #30 tab 07/28/19 [Rx Last Taken Unknown] nifedipine 30 mg PO DAILY #30 tab.er.24 07/28/19 [Rx Last Taken Unknown] sertraline 50 mg PO DAILY #30 tab 07/28/19 [Rx Last Taken Unknown] aspirin 325 mg tablet,delayed release 325 mg PO DAILY 09/01/19 [History Last Taken Unknown] fish oil-dha-epa 1,200 mg-144 mg-216 mg capsule 1,200 cap PO DAILY 09/01/19 [History Last Taken Unknown] fluticasone propionate 50 mcg/actuation nasal spray,suspension 2 spray INTRANASAL DAILY 09/01/19 [History Last Taken Unknown] ibuprofen 200 mg tablet 200 mg PO Q6H PRN 09/01/19 [History Last Taken Unknown] losartan 100 mg tablet 100 mg PO DAILY 09/01/19 [History Last Taken Unknown] sennosides 8.6 mg-docusate sodium 50 mg tablet 1 tab-cap PO Q OTHER DAY tab 09/01/19 [History Last Taken Unknown] esomeprazole magnesium 20 mg capsule,delayed release 20 mg PO Q OTHER DAY cap 09/09/19 [History Last Taken Unknown] atenolol 50 mg tablet 25 mg PO DAILY tab 03/10/20 [History Last Taken Unknown] levothyroxine 25 mcg tablet 100 mcg PO DAILY tab 03/10/20 [History Last Taken Unknown] Allergy/AdvReac Type Severity Reaction Status Date / Time adhesive tape Allergy Intermediate Unknown Verified 04/15/20 16:51 Sulfa (Sulfonamide Allergy Rash Verified 04/15/20 16:51 Antibiotics) lisinopril AdvReac cough Verified 04/15/20 16:51 Family History Grandfather Alcoholism Mother Angina at rest Arthritis Diabetes Myocardial infarction, Onset Age: 40 another @70 Heart disease Hypertension Sister Arthritis Bleeding disorder Blood clots Non Hodgkin's lymphoma Kidney cysts Osteoporosis Thyroid disorder Surgical History History of cataract extraction Social History Smoking Status: Never smoker alcohol intake: former details: Social substance use type: does not use Physical Exam Narrative Patient is resting supine comfortably in bed during the exam no acute distress at rest. Breathing easily without respiratory distress. She has a large pannus with an area of skin irritation over the surgical site on the left. Range of motion left hip deferred due to hip fracture. Left knee without deformity or tenderness. Negative Laly without signs of DVT. Patient is able to actively plantar and dorsiflex bilateral ankles against gravity. Legs are neurovascularly intact. Lab / Micro Data Result Diagrams: 09/13/20 04:58 09/13/20 04:58 Labs: Laboratory Results - last 24 hr 09/12/20 09/12/20 09/12/20 19:40 19:40 23:02 WBC 14.8 H RBC 3.71 L Hgb 11.3 L Hct 35.4 L MCV 95.4 MCH 30.5 MCHC 31.9 L RDW Std Deviation 45.5 H RDW Coeff of Umu 13.1 Plt Count 250 MPV 9.7 Immature Gran % (Auto) 0.500 Neut % (Auto) 89.2 H Lymph % (Auto) 5.5 L [place] % (Auto) 4.0 Eos % (Auto) 0.7 Baso % (Auto) 0.1 Absolute Neuts (auto) 13.2 H Absolute Lymphs (auto) 0.82 L Nucleated RBC % 0 Sodium 141 Potassium 4.7 Chloride 106 Carbon Dioxide 28.0 Anion Gap 7 BUN 37 H Creatinine 1.40 H Estim Creat Clear Calc 24.56 Est GFR (MDRD) Af Amer 47 L Est GFR (MDRD) Non-Af 39 L BUN/Creatinine Ratio 26.4 H Glucose 170 H Hemoglobin A1c Calcium 9.7 Phosphorus Magnesium Total Bilirubin AST ALT Alkaline Phosphatase Total Protein Albumin Globulin Albumin/Globulin Ratio TSH POC Glucose 193 H Blood Type Antibody Screen 09/13/20 09/13/20 09/13/20 04:58 04:58 04:58 WBC 10.5 RBC 3.45 L Hgb 10.5 L Hct 33.4 L MCV 96.8 MCH 30.4 MCHC 31.4 L RDW Std Deviation 46.0 H RDW Coeff of Umu 12.9 Plt Count 237 MPV 9.8 Immature Gran % (Auto) 0.700 Neut % (Auto) 82.9 H Lymph % (Auto) 10.2 L [place] % (Auto) 5.3 Eos % (Auto) 0.7 Baso % (Auto) 0.2 Absolute Neuts (auto) 8.7 H Absolute Lymphs (auto) 1.07 Nucleated RBC % 0 Sodium 140 Potassium 4.7 Chloride 106 Carbon Dioxide 28.0 Anion Gap 6 BUN 34 H Creatinine 1.26 H Estim Creat Clear Calc 27.28 Est GFR (MDRD) Af Amer 53 L Est GFR (MDRD) Non-Af 44 L BUN/Creatinine Ratio 27.0 H Glucose 185 H Hemoglobin A1c 5.7 H Calcium 9.0 Phosphorus 3.7 Magnesium 2.2 Total Bilirubin 0.40 AST 26 ALT 24 Alkaline Phosphatase 90 Total Protein 6.7 Albumin 2.8 L Globulin 3.9 Albumin/Globulin Ratio 0.7 L TSH 8.02 H POC Glucose Blood Type Antibody Screen 09/13/20 09/13/20 09/13/20 04:58 06:33 12:01 WBC RBC Hgb Hct MCV MCH MCHC RDW Std Deviation RDW Coeff of Umu Plt Count MPV Immature Gran % (Auto) Neut % (Auto) Lymph % (Auto) [place] % (Auto) Eos % (Auto) Baso % (Auto) Absolute Neuts (auto) Absolute Lymphs (auto) Nucleated RBC % Sodium Potassium Chloride Carbon Dioxide Anion Gap BUN Creatinine Estim Creat Clear Calc Est GFR (MDRD) Af Amer Est GFR (MDRD) Non-Af BUN/Creatinine Ratio Glucose Hemoglobin A1c Calcium Phosphorus Magnesium Total Bilirubin AST ALT Alkaline Phosphatase Total Protein Albumin Globulin Albumin/Globulin Ratio TSH POC Glucose 158 H 104 Blood Type O NEGATIVE Antibody Screen NEGATIVE Micro: Microbiology 09/13/20 03:50 SARS-CoV-2 Antigen (Rapid) - Final Mucosa - Nose Radiology Impression Chest X-Ray 09/12/20 17:55 IMPRESSION: Nonacute portable x-ray examination of the chest. Electronically Signed: Juancho Lares MD ([place]) at 18:25 EDT , Service support , Femur X-Ray 09/12/20 17:55 IMPRESSION: Left hip IT fracture. Electronically Signed: Juancho Lares MD ([place]oks) at 18:09 EDT , Service support , Pelvis X-Ray 09/12/20 17:55 IMPRESSION: Left IT proximal femur fracture. Electronically Signed: Juancho Lares MD ([place]) at 18:24 EDT , Service support ,
[2020-09-13] MEDS: Cefazolin 2 GM in 0.9% Normal Saline 100 ML IV (16:45)
--- NOTE | 2020-09-13 16:45 | RAD_ITS ---
HISTORY: ORIF. Gamma nail. Comparison study is yesterday. Findings: The comminuted left intertrochanteric fracture has been internally fixed with a gamma nail. Alignment is normal. The intramedullary karma extends of the distal femur. RAD/Hip Min 2 Views (Portable) IMPRESSION: Internal fixation of left femoral neck fracture. at 2306 Reported and signed by: Saulo Capone MD Electronically Signed: Saulo Capone MD at 23:05 EDT Tel , Service support ,
[2020-09-13] MEDS: Lactated Ringers 1,000 ML 100 ML IV (18:16)
--- NOTE | 2020-09-13 18:39 | OP.PCM_ITS ---
Problems Associated Problem List Diagnoses (1) Hip fracture, left: Operative Report Date of Procedure: 09/13/20 Preoperative diagnosis: Left hip displaced intertrochanteric fracture Postoperative diagnosis: Same Title of operation: Left hip open reduction internal fixation, intramedullary nail fixation, Surgeon: Dr. Ba Cary Payroll Lead: Ghazala Crane PA-C Anesthesia: General Anesthesia: Dr. George Medications: Ancef EBL: 50 Fluid: 1 L Indications for surgery: Patient is an 75-year-old female sustained a hip fracture yesterday. Patient and their family explained diagnosis and treatment options. Patient evaluated by the medical services. Patient did wish to have surgery. Appropriate informed consent obtained and signed. Findings: Patient had a displaced intertrochanteric hip fracture. They underwent standard reduction, internal fixation using a [place] long gamma nail. 13 mm x 360 mm x 125 degree neck angle ,x-rays taken throughout. professional nursing assistant, physician library services assistant, was utilized throughout the entire procedure. They were vital to the procedure from beginning to end. They help with patient transfer, patient padding and positioning, fracture reduction, maintenance of fracture reduction, internal fixation of implants, wound closure, bandage application, patient transfer. Without rehab assistant, surgical time would have been significantly increased and surgical outcome could have been less optimal. Procedure: Patient was taken to the operating room. Placed under a general anesthetic and transferred to the operating table with the help of the library services assistant. With the help of the library services assistant patient was prepped and padded for surgery. Operative side foot was well-padded and placed in the traction boot. Uninjured lower extremity was abducted and flexed out of harms way. GIANCARLO hose and SCDs utilized. Fluoroscopy was brought in. With the help of the library services assistant and manipulation of the limb, reduction was nicely obtained as verified under AP lateral and oblique fluoroscopic images. . Tissue retention system was used to pull her pannus out of the incision site region. Operative hip/thigh was prepped padded draped in usual orthopedic sterile fashion for the procedure. Longitudinal incision was made just proximal to the greater trochanter. Taken through skin and subcutaneous tissue. Sharp awl was placed on the tip of the greater trochanter. Position verified under AP and lateral fluoroscopic images. This was then taken down inside the bone. Slightly bent ball-tipped guide karma was then placed from the tip of the greater trochanter into the intra-medullary canal of the femur. Its position verified radiographically. Reamer was then done over the tip of this with the help of the library services assistant holding the soft tissue protector appropriately. We used the triple reamer proximally. We used the long reamers distally to a 14.5 mm diameter. once reaming was done we placed the long 125? angle device over the guidepin. This was easily introduced. Guide karma removed. Outrigger device was utilized to position a guidepin from the lateral cortex of the femur across the fracture site and into the femoral head in a good position centrally, as noted on AP lateral and oblique fluoroscopic images. This was measured. Appropriate reaming done. Appreciate length lag screw was placed from the lateral cortex of the femur into the femoral head. A small amount of the screw was noted to be protruding laterally as planned. No cartilage penetration of the femoral head noted on any x-ray. Fracture was then compressed with the outrigger device. Proximal cap screw was placed by the library services assistant seated down completely, confirmed, and then loosened one fourth turn. We then used the outrigger device to place distal cross locking screw under standard technique. This was confirmed to be of adequate length in good position on AP and lateral images. Outrigger device removed. Fracture deemed to be stable. No distal cross locking screw was deemed necessary. final set of AP and lateral proximal x-rays taken and saved. Incisions thoroughly irrigated. Closing by the library services assistant with deep 0 Vicryl, mid layer 0 Vicryl, inverted 2-0 Vicryl, skin katherine. Puncture wounds closed with inverted 2-0 Vicryl and katherine. Xeroform 4 x 4's ABD tape applied. Patient was awoken from their anesthetic, transferred back to their own bed with the help of the library services assistant and into recovery room in satisfactory condition. Patient will continue to be admitted to the hospital under the hospitalist service. Ancef 2 g IV was given preoperatively for antibiotic prophylaxis. Aspirin 325 mg daily as well as heparin subcu will be used for postoperative DVT prevention This note was generated with [employer]youlike[employer] software. It may contain incorrect words, spelling, and punctuation that were not noted in checking the note before signing.
[2020-09-13 19:01] LABS: Bedside Glucose 136 mg/dL (70-110)
--- NOTE | 2020-09-13 20:03 | SUR.PHASEI ---
PT DOING I.S. WITH MUCH INSTRUCTIONS
[2020-09-13] MEDS: Acetaminophen 500 MG Tablet 1000 MG PO (21:13)
[2020-09-13] MEDS: Atorvastatin Calcium 40 MG Tablet PO (21:14)
[2020-09-13 21:21] LABS: Bedside Glucose 157 mg/dL (70-110)
[2020-09-13 21:21] LABS: Hematocrit 34.2 % (37-47); Hemoglobin 10.4 g/dL (12.0-15.0)
[2020-09-13] MEDS: Ondansetron 4 MG/2 ML Vial IV (22:39)
[2020-09-13] MEDS: Meclizine 12.5 MG Tablet PO (22:58)
[2020-09-14] VITALS (12 sets, daily range): BP systolic 107–159; BP diastolic 46–54; PULSE 63–84; RESP 16–18; TEMP 36.7–37.3; O2SAT 74–97
[2020-09-14] MEDS: Cefazolin 1 GM/50 ML BAG IV ×2 (00:12→07:48)
[2020-09-14] MEDS: Acetaminophen 500 MG Tablet 1000 MG PO ×3 (05:22→21:29)
[2020-09-14] MEDS: Levothyroxine 100 MCG Tablet PO (05:22)
[2020-09-14] MEDS: Heparin Injection (Vial) 5,000 UNIT/ML VIAL 5000 UNIT SC ×3 (06:43→21:29)
[2020-09-14] MEDS: Insulin Lispro 100 UNIT/ML INSULN.PEN SC (06:44)
[2020-09-14 06:58] LABS: Absolute Lymphocyte Count 0.78 X10^3/uL (0.83-4.51); Absolute Neutrophil Count 9.2 X10^3/uL (2.0-7.7); Basophil# 0.01 X10^3/uL; Basophil% 0.1 % (0-1); Eosinophil# 0.02 X10^3/uL; Eosinophils% 0.2 % (0-5); Hematocrit 29.1 % (37-47); Hemoglobin 9.1 g/dL (12.0-15.0); Lymphocyte # 0.78 X10^3/ul (0.83-4.51); Lymphocyte % 7.3 % (19-41); Mean Corp Hgb Conc 31.3 g/dL (32-36); Mean Corpuscular Hgb 29.9 pg (27.0-32.0); Mean Corpuscular Volume 95.7 fL (81-99); Mean Platelet Vol. 10.1 fl (6.2-12.0); Monocyte# 0.63 X10^3/uL; Monocyte% 5.9 % (0-10); NRBC Flagged by Analyzer 0 % (0-5); Neutrophil # 9.15 X10^3/uL (2.7-7.7); Neutrophil % 86.1 % (47-70); Platelet Count 221 K/mm3 (150-450); RBC Distribution Width CV 13.1 % (11.6-14.6); RBC Distribution Width SD 45.4 fl (35.1-43.9); Red Blood Count 3.04 M/mm3 (4.2-5.4); White Blood Count 10.6 K/mm3 (4.4-11.0)
--- NOTE | 2020-09-14 07:12 | PCM.PN.ORT ---
Subjective Subjective Patient is status post day 1 for intratrochanteric karma after falling from an attempt to grab her walker landing directly on her left hip and suffering an anterior trochanteric fracture. Overall the patient had a good night. She is resting comfortably in bed. No acute distress. Catheter still in place. Was unable to ambulate overnight due to her history of vertigo. Will attempt today. Objective Data Objective Data Vital Signs: Vital Signs Temp Pulse Resp BP Pulse Ox 99.2 F H 80 18 118/51 L 95 09/14/20 04:15 09/14/20 04:15 09/14/20 04:15 09/14/20 04:15 09/14/20 04:15 Oxygen Flow Rate (L/min) 3 Oxygen Delivery Method Nasal Cannula Weight: 96.6 kg Body Mass Index (BMI) 41.5 Intake & Output: Intake and Output for Last 24 Hours 09/12/20 09/13/20 09/14/20 23:59 23:59 23:59 Intake Total 2471.5 / 2671.5 400 / 400 Output Total 1100 / 1600 750 / 750 Balance 1371.5 / 1071.5 -350 / -350 Lab / Micro Data Result Diagrams: 09/14/20 05:45 09/13/20 04:58 Labs: Laboratory Results - last 24 hr 09/13/20 09/13/20 09/13/20 04:58 12:01 18:56 WBC RBC Hgb Hct MCV MCH MCHC RDW Std Deviation RDW Coeff of Umu Plt Count MPV Immature Gran % (Auto) Neut % (Auto) Lymph % (Auto) [place] % (Auto) Eos % (Auto) Baso % (Auto) Absolute Neuts (auto) Absolute Lymphs (auto) Nucleated RBC % Hemoglobin A1c 5.7 H POC Glucose 104 136 H 09/13/20 09/13/20 09/14/20 21:00 21:15 05:45 WBC 10.6 RBC 3.04 L Hgb 10.4 L 9.1 L Hct 34.2 L 29.1 L MCV 95.7 MCH 29.9 MCHC 31.3 L RDW Std Deviation 45.4 H RDW Coeff of Umu 13.1 Plt Count 221 MPV 10.1 Immature Gran % (Auto) 0.400 Neut % (Auto) 86.1 H Lymph % (Auto) 7.3 L [place] % (Auto) 5.9 Eos % (Auto) 0.2 Baso % (Auto) 0.1 Absolute Neuts (auto) 9.2 H Absolute Lymphs (auto) 0.78 L Nucleated RBC % 0 Hemoglobin A1c POC Glucose 157 H Micro: Microbiology 09/13/20 03:50 Mucosa - Nose SARS-CoV-2 Antigen (Rapid) - Final Radiography Diagnostic Testing: Radiology Impression Hip X-Ray 09/13/20 16:45 IMPRESSION: Internal fixation of left femoral neck fracture. at 2306 Reported and signed by: Saulo Capone MD Electronically Signed: Saulo Capone MD at 23:05 EDT Tel , Service support , Physical Exam Narrative Patient resting comfortably in bed No signs of acute distress Satting well on room air Limb is warm to touch, Sensation intact throughout entire lower extremity. DP/PT pulses bounding. Passive range of motion with minimal pain. Dressing without area of drainage. Intact skin. Calf nontender to palpation, no erythema, no edema. Negative Homans Assessment & Plan Assessment/Plan (1) Hip fracture, left: QUALIFIERS: Encounter type: initial encounter PLAN: 1. Recommend PT today. Weight bearing as tolerated. 2. Discharge per primary. Okay today from an orthopedic standpoint. 3. Patient will follow up for post op appointment in [address] Ba Cary, Ghazala Crane PA-C or Samantha Pina PA-C 4. H/H 9..1: post operavtive anemia secondary to acute blood loss intraoperatively. Patient is asymptomatic at this time. No intraoperative complications. will continue to monitor. no acute interventions. 5. DVT prophylaxis : Okay for aspirin 325, heparin, or aspirin 81 twice daily. Will defer to primary however should be on for at least 4 weeks postoperatively. 6. Pain control: patient instructed to take tylenol 500mg 2 tablets TID. and oxycodone 1-2 tablets every 4-6 hours only as needed for pain control.
[2020-09-14 07:24] LABS: Anion Gap 6 (5-15); BUN 28 mg/dL (7-18); BUN/Creat Ratio 23.5 RATIO (10-20); Calcium,Total 8.6 mg/dL (8.5-10.1); Chloride 108 mmol/L (98-107); Creatinine, Serum 1.19 mg/dL (0.55-1.02); EST Glomerular Filtration Rate 47 mL/min (>60); Est Glom Filt Rate - Afr Amer 57 mL/min (>60); Estimated Creatinine Clearance 28.89 ml/min; Glucose 242 mg/dL (74-106); Potassium 4.8 mmol/L (3.5-5.1); Sodium Level 140 mmol/L (136-145)
[2020-09-14] MEDS: Glimepiride 1 MG Tablet PO (07:55)
[2020-09-14] MEDS: Multivitamins,Therapeutic Tablet 1 TABLET PO (07:55)
[2020-09-14] MEDS: Aspirin E.C. 325 MG Tablet PO (07:55)
[2020-09-14] MEDS: Magnesium Chloride 64 MG Delay Rel.Tablet 128 MG PO (07:55)
--- NOTE | 2020-09-14 09:12 | CASEMGMT ---
SW let pt know that TCU can take pt, and TCU will start precert today for pt. Pt states understanding and is in agreement. OPAL Carcamo
--- NOTE | 2020-09-14 09:31 | NURSING ---
RNCM Note: Palliative Screening Tool Completed per [facility] guidelines, Lace 3, Patient currently does not meet criteria for referral. Pamela Almanzar RNCM
[2020-09-14] MEDS: Losartan Potassium 100 MG Tablet PO (10:16)
[2020-09-14] MEDS: Fluticasone 0.05% 1 SPRAY NASAL.SRY 2 SPRAY NASAL (10:16)
[2020-09-14] MEDS: Nystatin Powder 15gm Bottle 1 APPLIC TOPICAL ×2 (10:17→21:29)
[2020-09-14] MEDS: Sertraline 50 MG Tablet PO (10:18)
[2020-09-14] MEDS: LINAGLIPTIN 5 MG TABLET PO (10:18)
[2020-09-14] MEDS: Pantoprazole Sodium 20 MG Tablet PO (10:18)
[2020-09-14] MEDS: Atenolol 25 MG Tablet PO (10:18)
[2020-09-14] MEDS: NIFEdipine 30 MG Tablet PO (10:18)
[2020-09-14] MEDS: Senna/Docusate Sodium 1 Tablet PO (10:18)
[2020-09-14] MEDS: Omega-3 Acid Ethyl Esters 1 GM Capsule PO (10:19)
[2020-09-14] MEDS: Menthol/Lanolin/Calamine/Znox 113 GM Tube 1 APPLIC TOPICAL ×2 (10:20→23:06)
--- NOTE | 2020-09-14 11:48 | PCM.PN.HOSP ---
Subjective Subjective Patient had left hip surgery. Pain is better after the surgery. Patient also has abrasion and bruise over the abdominal panniculus and groin area. Objective Data Objective Data Vital Signs: Vital Signs Temp Pulse Resp BP Pulse Ox 98.7 F 78 18 116/54 L 95 09/14/20 07:56 09/14/20 07:56 09/14/20 07:56 09/14/20 07:56 09/14/20 07:56 Oxygen Flow Rate (L/min) 3 Oxygen Delivery Method Nasal Cannula Weight: 212 lb 15.465 oz Body Mass Index (BMI) 41.5 Intake & Output: Intake and Output for Last 24 Hours 09/12/20 09/13/20 09/14/20 23:59 23:59 23:59 Intake Total 2471.5 / 2671.5 1189.67 / 1189.67 Output Total 1100 / 1600 750 / 750 Balance 1371.5 / 1071.5 439.67 / 439.67 Lab / Micro Data Result Diagrams: 09/14/20 05:45 09/14/20 05:45 Labs: Laboratory Results - last 24 hr 09/13/20 09/13/20 09/13/20 12:01 18:56 21:00 WBC RBC Hgb 10.4 L Hct 34.2 L MCV MCH MCHC RDW Std Deviation RDW Coeff of Umu Plt Count MPV Immature Gran % (Auto) Neut % (Auto) Lymph % (Auto) [place] % (Auto) Eos % (Auto) Baso % (Auto) Absolute Neuts (auto) Absolute Lymphs (auto) Nucleated RBC % Sodium Potassium Chloride Carbon Dioxide Anion Gap BUN Creatinine Estim Creat Clear Calc Est GFR (MDRD) Af Amer Est GFR (MDRD) Non-Af BUN/Creatinine Ratio Glucose Calcium POC Glucose 104 136 H 09/13/20 09/14/20 09/14/20 21:15 05:45 05:45 WBC 10.6 RBC 3.04 L Hgb 9.1 L Hct 29.1 L MCV 95.7 MCH 29.9 MCHC 31.3 L RDW Std Deviation 45.4 H RDW Coeff of Umu 13.1 Plt Count 221 MPV 10.1 Immature Gran % (Auto) 0.400 Neut % (Auto) 86.1 H Lymph % (Auto) 7.3 L [place] % (Auto) 5.9 Eos % (Auto) 0.2 Baso % (Auto) 0.1 Absolute Neuts (auto) 9.2 H Absolute Lymphs (auto) 0.78 L Nucleated RBC % 0 Sodium 140 Potassium 4.8 Chloride 108 H Carbon Dioxide 26.0 Anion Gap 6 BUN 28 H Creatinine 1.19 H Estim Creat Clear Calc 28.89 Est GFR (MDRD) Af Amer 57 L Est GFR (MDRD) Non-Af 47 L BUN/Creatinine Ratio 23.5 H Glucose 242 H Calcium 8.6 POC Glucose 157 H Micro: Microbiology 09/13/20 03:50 Mucosa - Nose SARS-CoV-2 Antigen (Rapid) - Final Radiography Diagnostic Testing: Radiology Impression Hip X-Ray 09/13/20 16:45 IMPRESSION: Internal fixation of left femoral neck fracture. at 2306 Reported and signed by: Saulo Capone MD Electronically Signed: Saulo Capone MD at 23:05 EDT Tel , Service support , Physical Exam Narrative General: Alert, Oriented x3, Cooperative morbid obesity BMI 41.6 kg/m? HEENT: Atraumatic, PERRLA, EOMI, Normocephalic Oral: No Gingival or Mucosal Lesions/ Ulcerations Neck: Supple, No JVD, Negative Carotid Bruits Lungs: Air entry diminished in bilateral lung bases. No crepitation/rhonchi Cardiovascular: Regular rate and rhythm, Normal S1, Normal S2, diastolic murmur over cardiac apex systolic murmur over LLSB. Abdomen: Bowel Sounds Present, Soft, Non Tender, Non-Distended. 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 : No renal angle tenderness. No suprapubic tenderness. Extremities: No edema, Capillary Refill Less than 3 Seconds Skin: Rash present over groin and mild abrasion and superficial skin ulcer over abdominal panniculus, present since admission Musculoskeletal: Surgical dressing is dry. Bilateral knee arthritis. Right hip pain knee power 4+/5 Neurological: Right-sided residual weakness with moderate aphasia. Psych/Mental Status: Normal Affect, Appropriate. Assessment & Plan Assessment/Plan (1) Hip fracture, left: QUALIFIERS: Encounter type: initial encounter PLAN: 75-year-old female was admitted on [facility] after a fall complicating into left hip pain with intertrochanteric fracture 1. Acute closed comminuted intertrochanteric fracture of the left proximal femur: The patient was seen by special services supervisor for preoperative cardiovascular risk evaluation and she seems fairly optimized. No chest pain or shortness of breath. Blood pressure is controlled. Twelve-lead EKG shows normal sinus rhythm with no acute changes. Patient has moderate mitral valve stenosis, EF 60% with stage II diastolic dysfunction as per echo September 2019. Paroxysmal A. fib, currently in normal sinus rhythm and heart rate is controlled. Limited fluid intake, suggested by special services supervisor to prevent left atrial stretch to precipitate A. fib. Continue baby aspirin. 09/14: Drop in hemoglobin 9.1 from 10.4. Continue baby aspirin and heparin subcu. Hemodynamically blood pressure and heart rate is good. Patient had left hip open reduction internal fixation with intramedullary nail fixation. Continue incentive spirometry. 2. Paroxysmal A. fib, moderate mitral stenosis: As mentioned above 3. CKD stage IIIb: BUN/creatinine mildly elevated but better than baseline 1.4. 4. History of DVT -Was treated for 6 months with Coumadin in 2018 5. History of stroke x2 with residual right-sided weakness and mild aphasia and mild bilateral carotid stenosis. Patient follows neurologist. Nonhemodynamically significant carotid artery disease based on neurologist note of April 2020. 6. Hypertension/hyperlipidemia -Continue home medication 7. GERD -Continue PPI 8. Chronic anemia: Hemoglobin 10.5. MCV 96.8 suggestive of anemia of chronic disease. RDW normal. H&H in the evening. On iron supplementation. 9. DM-2 -Hold glimepiride and sitagliptin. Accu-Chek insulin is covered with Humalog sliding scale. A1c 5.7%. 10. Other comorbidities include obstructive sleep apnea, hypothyroidism, anxiety and depression and morbid obesity: BMI 43.4. Multiple comorbidities complicates the present care and expect difficult and delay recovery Patient has large abdominal panniculus along with skin abrasion and groin rash, fungal, Marge: Nystatin powder. Discussed with the wound nurse and wound photo reviewed. 11. DVT prophylaxis -Heparin twice daily CODE STATUS -Full code
[2020-09-14] MEDS: Ferrous Sulfate 325 MG Tablet PO (12:24)
[2020-09-14 12:35] LABS: Bedside Glucose 134 mg/dL (70-110)
[2020-09-14 16:21] LABS: Bedside Glucose 95 mg/dL (70-110)
[2020-09-14] MEDS: Atorvastatin Calcium 40 MG Tablet PO (21:29)
[2020-09-14 21:40] LABS: Bedside Glucose 200 mg/dL (70-110)
[2020-09-15] VITALS (11 sets, daily range): BP systolic 103–121; BP diastolic 47–52; PULSE 60–87; RESP 16–18; TEMP 36.6–37.9; O2SAT 90–99
[2020-09-15] MEDS: Acetaminophen 500 MG Tablet 1000 MG PO ×3 (05:23→22:23)
[2020-09-15] MEDS: Heparin Injection (Vial) 5,000 UNIT/ML VIAL 5000 UNIT SC (05:23)
[2020-09-15] MEDS: Levothyroxine 100 MCG Tablet PO (05:23)
[2020-09-15 06:35] LABS: Bedside Glucose 83 mg/dL (70-110)
[2020-09-15 08:14] LABS: Absolute Lymphocyte Count 1.04 X10^3/uL (0.83-4.51); Absolute Neutrophil Count 7.9 X10^3/uL (2.0-7.7); Basophil# 0.02 X10^3/uL; Basophil% 0.2 % (0-1); Eosinophil# 0.65 X10^3/uL; Eosinophils% 6.3 % (0-5); Hematocrit 27.1 % (37-47); Hemoglobin 8.6 g/dL (12.0-15.0); Lymphocyte # 1.04 X10^3/ul (0.83-4.51); Mean Corp Hgb Conc 31.7 g/dL (32-36); Mean Corpuscular Hgb 30.4 pg (27.0-32.0); Mean Corpuscular Volume 95.8 fL (81-99); Mean Platelet Vol. 9.8 fl (6.2-12.0); Monocyte# 0.74 X10^3/uL; Monocyte% 7.1 % (0-10); NRBC Flagged by Analyzer 0 % (0-5); Neutrophil # 7.87 X10^3/uL (2.7-7.7); Neutrophil % 75.8 % (47-70); Platelet Count 186 K/mm3 (150-450); RBC Distribution Width CV 13.2 % (11.6-14.6); RBC Distribution Width SD 46.5 fl (35.1-43.9); Red Blood Count 2.83 M/mm3 (4.2-5.4); White Blood Count 10.4 K/mm3 (4.4-11.0)
[2020-09-15] MEDS: NIFEdipine 30 MG Tablet PO ×2 (08:15→08:19)
[2020-09-15] MEDS: Aspirin E.C. 81 MG Tablet PO (08:16)
[2020-09-15] MEDS: LINAGLIPTIN 5 MG TABLET PO (08:16)
[2020-09-15] MEDS: Losartan Potassium 100 MG Tablet PO (08:16)
[2020-09-15] MEDS: Magnesium Chloride 64 MG Delay Rel.Tablet 128 MG PO (08:16)
[2020-09-15] MEDS: Glimepiride 1 MG Tablet PO (08:17)
[2020-09-15] MEDS: Menthol/Lanolin/Calamine/Znox 113 GM Tube 1 APPLIC TOPICAL ×2 (08:17→22:24)
[2020-09-15] MEDS: Multivitamins,Therapeutic Tablet 1 TABLET PO (08:17)
[2020-09-15] MEDS: Omega-3 Acid Ethyl Esters 1 GM Capsule PO (08:19)
[2020-09-15] MEDS: Sertraline 50 MG Tablet PO (08:20)
[2020-09-15] MEDS: Atenolol 25 MG Tablet PO (08:20)
[2020-09-15] MEDS: Nystatin Powder 15gm Bottle 1 APPLIC TOPICAL ×2 (08:21→22:22)
[2020-09-15] MEDS: Fluticasone 0.05% 1 SPRAY NASAL.SRY 2 SPRAY NASAL (08:24)
--- NOTE | 2020-09-15 11:51 | PN.HOSP_ITS ---
Subjective Subjective Patient has history of right foot DVT in the past and other risk factors of thromboembolism includes morbid obesity BMI 41.6 kg/m?, sedentary habit, left hip surgery therefore Lovenox increased to 40 mg subcu twice daily. But the drop of hemoglobin 10.4 to 8.6 g% therefore changed to 30 mg q. 12. Discussed with the pharmacist and the patient and watch for bleeding or hematoma around the wound site or urine, stool or hemoptysis. Objective Data Objective Data Vital Signs: Vital Signs Temp Pulse Resp BP Pulse Ox 98.1 F 75 16 121/51 H 90 09/15/20 08:09 09/15/20 10:51 09/15/20 08:09 09/15/20 08:09 09/15/20 10:05 Oxygen Flow Rate (L/min) 2 Oxygen Delivery Method Nasal Cannula Weight: 212 lb 15.465 oz Body Mass Index (BMI) 41.5 Intake & Output: Intake and Output for Last 24 Hours 09/13/20 09/14/20 09/15/20 23:59 23:59 23:59 Intake Total 2471.5 / 2671.5 1950.00 / 1950.00 400 / 400 Output Total 1100 / 1600 1325 / 1325 800 / 800 Balance 1371.5 / 1071.5 625.00 / 625.00 -400 / -400 Lab / Micro Data Result Diagrams: 09/15/20 08:05 09/14/20 05:45 Labs: Laboratory Results - last 24 hr 09/14/20 09/14/20 09/14/20 06:40 12:23 16:17 WBC RBC Hgb Hct MCV MCH MCHC RDW Std Deviation RDW Coeff of Umu Plt Count MPV Immature Gran % (Auto) Neut % (Auto) Lymph % (Auto) Grant % (Auto) Eos % (Auto) Baso % (Auto) Absolute Neuts (auto) Absolute Lymphs (auto) Nucleated RBC % POC Glucose 200 H 134 H 95 09/15/20 09/15/20 06:28 08:05 WBC 10.4 RBC 2.83 L Hgb 8.6 L Hct 27.1 L MCV 95.8 MCH 30.4 MCHC 31.7 L RDW Std Deviation 46.5 H RDW Coeff of Umu 13.2 Plt Count 186 MPV 9.8 Immature Gran % (Auto) 0.600 Neut % (Auto) 75.8 H Lymph % (Auto) 10.0 L Grant % (Auto) 7.1 Eos % (Auto) 6.3 H Baso % (Auto) 0.2 Absolute Neuts (auto) 7.9 H Absolute Lymphs (auto) 1.04 Nucleated RBC % 0 POC Glucose 83 Micro: Microbiology 09/13/20 03:50 Mucosa - Nose SARS-CoV-2 Antigen (Rapid) - Final Physical Exam Narrative General: Alert, Oriented x3, Cooperative morbid obesity BMI 41.6 kg/m? HEENT: Atraumatic, PERRLA, EOMI, Normocephalic Oral: No Gingival or Mucosal Lesions/ Ulcerations Neck: Supple, No JVD, Negative Carotid Bruits Lungs: Air entry diminished in bilateral lung bases. No crepitation/rhonchi Cardiovascular: Regular rate and rhythm, Normal S1, Normal S2, diastolic murmur over cardiac apex and holosystolic murmur over LLSB. Abdomen: Bowel Sounds Present, Soft, Non Tender, Non-Distended. 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 : No renal angle tenderness. No suprapubic tenderness. Extremities: No edema, Capillary Refill Less than 3 Seconds Skin: Rash present over groin and mild abrasion and superficial skin ulcer over abdominal panniculus, present since admission Musculoskeletal: Surgical dressing is dry. Bilateral knee arthritis. Right hip pain knee power 4+/5 Neurological: Right-sided residual weakness with moderate aphasia. Psych/Mental Status: Normal Affect, Appropriate. Assessment & Plan Assessment/Plan (1) Hip fracture, left: QUALIFIERS: Encounter type: initial encounter PLAN: 75-year-old female was admitted on [facility] after a fall complicating into left hip pain with intertrochanteric fracture 1. Acute closed comminuted intertrochanteric fracture of the left proximal femur: The patient was seen by net web application developer for preoperative cardiovascular risk evaluation and she seems fairly optimized. No chest pain or shortness of breath. Blood pressure is controlled. Twelve-lead EKG shows normal sinus rhythm with no acute changes. Patient has moderate mitral valve stenosis, EF 60% with stage II diastolic dysfunction as per echo September 2019. Paroxysmal A. fib, currently in normal sinus rhythm and heart rate is controlled. Limited fluid intake, suggested by net web application developer to prevent left atrial stretch to precipitate A. fib. Continue baby aspirin. 09/14: Drop in hemoglobin 9.1 from 10.4. Continue baby aspirin and heparin subcu. Hemodynamically blood pressure and heart rate is good. Patient had left hip open reduction internal fixation with intramedullary nail fixation. Continue incentive spirometry. Acute blood loss anemia on chronic anemia, from surgery/anticoagulant: Hemoglobin low but does not require PRBC transfusion. Drop in hemoglobin to 8.6. Lovenox 30 mg subcu twice daily. Aspirin discontinued. Stool for occult blood ordered. On ferrous sulfate and vitamin C and Protonix. 2. Paroxysmal A. fib, moderate mitral stenosis: As mentioned above 3. CKD stage IIIb: BUN/creatinine mildly elevated but better than baseline 1.4. 4. History of DVT -Was treated for 6 months with Coumadin in 2017 5. History of stroke x2 with residual right-sided weakness and mild aphasia and mild bilateral carotid stenosis. Patient follows neurologist. Nonhemod ynamically significant carotid artery disease based on neurologist note of April 2020. 6. Hypertension/hyperlipidemia -Continue home medication 7. GERD -Continue PPI 8. Chronic anemia: Hemoglobin 10.5. MCV 96.8 suggestive of anemia of chronic disease. RDW normal. H&H in the evening. On iron supplementation. 9. DM-2 -Hold glimepiride and sitagliptin. Accu-Chek insulin is covered with Humalog sliding scale. A1c 5.7%. Glucose is on the lower side. 10. Other comorbidities include obstructive sleep apnea, hypothyroidism, anxiety and depression and morbid obesity: BMI 43.4. Multiple comorbidities complicates the present care and expect difficult and delay recovery Patient has large abdominal panniculus along with skin abrasion and groin rash, fungal, Marge: Nystatin powder. Discussed with the wound nurse and wound photo reviewed. 11. DVT prophylaxis Lovenox 30 mg subcu twice daily CODE STATUS -Full code Charges/Coding Visit Charges Inpatient E&M: 34715 Subs Hosp L2
[2020-09-15] MEDS: Ferrous Sulfate 325 MG Tablet PO (12:10)
[2020-09-15] MEDS: Ascorbic Acid 500 MG Tablet PO ×2 (12:10→16:22)
[2020-09-15] MEDS: Enoxaparin 30 MG/0.3 ML Syringe SC ×2 (12:10→22:23)
[2020-09-15] MEDS: Insulin Lispro 100 UNIT/ML INSULN.PEN SC (12:11)
[2020-09-15 12:20] LABS: Bedside Glucose 171 mg/dL (70-110)
--- NOTE | 2020-09-15 16:24 | CASEMGMT ---
Social Work SW spoke with Evelina in TCU and precert has not been obtained yet. Pt updated and understanding that TCU does have a bed for her and just waiting on insurance precert at this time. Plan: TCU, precert pending. EBONIE Ramirez
[2020-09-15 16:30] LABS: Bedside Glucose 113 mg/dL (70-110)
[2020-09-15] MEDS: Atorvastatin Calcium 40 MG Tablet PO (22:24)
[2020-09-16] VITALS (12 sets, daily range): BP systolic 106–132; BP diastolic 45–56; PULSE 57–91; RESP 14–18; TEMP 36.6–37; O2SAT 86–98
[2020-09-16] MEDS: Levothyroxine 100 MCG Tablet PO (04:58)
[2020-09-16] MEDS: Acetaminophen 500 MG Tablet 1000 MG PO ×3 (04:58→21:45)
[2020-09-16 06:16] LABS: Absolute Lymphocyte Count 1.71 X10^3/uL (0.83-4.51); Absolute Neutrophil Count 6.8 X10^3/uL (2.0-7.7); Basophil# 0.03 X10^3/uL; Basophil% 0.3 % (0-1); Eosinophil# 0.58 X10^3/uL; Eosinophils% 5.8 % (0-5); Hematocrit 24.1 % (37-47); Hemoglobin 7.8 g/dL (12.0-15.0); Lymphocyte # 1.71 X10^3/ul (0.83-4.51); Lymphocyte % 17.1 % (19-41); Mean Corp Hgb Conc 32.4 g/dL (32-36); Mean Corpuscular Hgb 30.7 pg (27.0-32.0); Mean Corpuscular Volume 94.9 fL (81-99); Monocyte# 0.78 X10^3/uL; Monocyte% 7.8 % (0-10); NRBC Flagged by Analyzer 0 % (0-5); Neutrophil # 6.84 X10^3/uL (2.7-7.7); Neutrophil % 68.4 % (47-70); Platelet Count 211 K/mm3 (150-450); RBC Distribution Width CV 13.4 % (11.6-14.6); RBC Distribution Width SD 46.4 fl (35.1-43.9); Red Blood Count 2.54 M/mm3 (4.2-5.4)
[2020-09-16 06:34] LABS: Anion Gap 2 (5-15); BUN 37 mg/dL (7-18); BUN/Creat Ratio 27.6 RATIO (10-20); Calcium,Total 8.9 mg/dL (8.5-10.1); Chloride 108 mmol/L (98-107); Creatinine, Serum 1.34 mg/dL (0.55-1.02); EST Glomerular Filtration Rate 41 mL/min (>60); Est Glom Filt Rate - Afr Amer 49 mL/min (>60); Estimated Creatinine Clearance 25.66 ml/min; Glucose 130 mg/dL (74-106); Potassium 4.4 mmol/L (3.5-5.1); Sodium Level 139 mmol/L (136-145)
[2020-09-16 06:46] LABS: Bedside Glucose 132 mg/dL (70-110)
[2020-09-16] MEDS: Multivitamins,Therapeutic Tablet 1 TABLET PO (08:44)
[2020-09-16] MEDS: Ascorbic Acid 500 MG Tablet PO ×2 (08:44→18:14)
[2020-09-16] MEDS: Glimepiride 1 MG Tablet PO (08:44)
[2020-09-16] MEDS: Magnesium Chloride 64 MG Delay Rel.Tablet 128 MG PO (08:44)
--- NOTE | 2020-09-16 08:50 | RAD_ITS ---
STUDY: X-RAY CHEST REASON FOR EXAM: Female, 75 years old. O2 needs TECHNIQUE: Single AP portable view of the chest. COMPARISON: Comparison is made with prior study dated 09/12/2020. FINDINGS: EKG collections are seen. There is elevation of the right hemidiaphragm. Increased markings are seen at the right lung base suggestive of possible atelectasis. There is calcification of the mitral valve annulus. Normal mediastinum and pako. Normal visualized pulmonary arteries. There is atherosclerotic calcification of the aortic arch with tortuosity. There are diffuse degenerative changes of the visualized thoracic spine. Normal visualized ribs, clavicles, and shoulders. There is no demonstrated abnormality of the visualized soft tissue structures of the upper abdomen. RAD/Chest 1 View (Portable) IMPRESSION: Increased markings at the right lung base suggestive of right basilar atelectasis. Electronically Signed: Andrew Merino MD at 12:24 EDT , Service support ,
[2020-09-16] MEDS: Nystatin Powder 15gm Bottle 1 APPLIC TOPICAL ×2 (09:23→21:46)
[2020-09-16] MEDS: Menthol/Lanolin/Calamine/Znox 113 GM Tube 1 APPLIC TOPICAL ×2 (09:23→21:46)
--- NOTE | 2020-09-16 10:01 | NM_ITS ---
CLINICAL: Female, 75 years old. Hypoxia, suspicion of PE -- Left hip fracture surgery NUCLEAR VENTILATION/PERFUSION - LUNG TECHNIQUE: The patient was administered 4.99 mCi of Tc MAA followed by a perfusion lung scan. The patient was administered 45 mCi of Tc DTPA aerosol followed by a ventilation lung scan. Comparison made to prior chest radiograph dated . COMPARISON STUDIES : Comparison is made with prior chest radiograph performed at 8:45 AM on 09/16/2020. FINDINGS: The pulmonary perfusion study demonstrates uniform perfusion throughout both lung dietz. There are no demonstrated segmental or subsegmental perfusion defects The ventilation study demonstrates uniform ventilation throughout both lung dietz. There are no segmental or subsegmental ventilation abnormalities. NM/Lung Scan Vent/Perf IMPRESSION: Normal 99m Tc MAA pulmonary perfusion Tc DTPA aerosol ventilation imaging survey, according to revised PIOPED interpretive criteria. Electronically Signed: Andrew Merino MD at 12:23 EDT , Service support ,
[2020-09-16] MEDS: Losartan Potassium 100 MG Tablet PO (10:05)
[2020-09-16] MEDS: Fluticasone 0.05% 1 SPRAY NASAL.SRY 2 SPRAY NASAL (10:05)
[2020-09-16] MEDS: Atenolol 25 MG Tablet PO (10:07)
[2020-09-16] MEDS: Sertraline 50 MG Tablet PO (10:07)
[2020-09-16] MEDS: Pantoprazole Sodium 40 MG Tablet PO (10:07)
[2020-09-16] MEDS: Senna/Docusate Sodium 1 Tablet PO (10:07)
[2020-09-16] MEDS: Omega-3 Acid Ethyl Esters 1 GM Capsule PO (10:07)
[2020-09-16] MEDS: LINAGLIPTIN 5 MG TABLET PO (10:07)
[2020-09-16] MEDS: Insulin Lispro 100 UNIT/ML INSULN.PEN SC ×2 (12:27→18:13)
[2020-09-16] MEDS: Ferrous Sulfate 325 MG Tablet PO (12:28)
[2020-09-16 12:30] LABS: Bedside Glucose 169 mg/dL (70-110)
[2020-09-16 13:08] LABS: Hematocrit 26.8 % (37-47); Hemoglobin 8.7 g/dL (12.0-15.0)
--- NOTE | 2020-09-16 14:20 | CASEMGMT ---
Social Work KARIS spoke with Evelina in TCU and precert has not yet been obtained from insurance. KARIS met with pt and explained that insurance precert is still pending. Pt is requesting to complete advance directives. SW assisted pt with completing a living will as well as health care POA naming her sister Norah Weiner. Original given to pt and copies placed on chart. EBONIE Ramirez
--- NOTE | 2020-09-16 14:50 | PCM.PN.HOSP ---
Subjective Subjective Discussed with the nursing staff. Patient usually wears oxygen at night but she required oxygen in the morning third liter. Patient also was prescribed CPAP but she is not using it. Her hemoglobin dropped but repeat one is 8.7. Objective Data Objective Data Vital Signs: Vital Signs Temp Pulse Resp BP Pulse Ox 98.2 F 62 18 106/45 L 97 09/16/20 12:34 09/16/20 12:44 09/16/20 12:34 09/16/20 12:34 09/16/20 12:34 Oxygen Flow Rate (L/min) 2 Oxygen Delivery Method Nasal Cannula Weight: 212 lb 15.465 oz Body Mass Index (BMI) 41.5 Intake & Output: Intake and Output for Last 24 Hours 09/14/20 09/15/20 09/16/20 23:59 23:59 23:59 Intake Total 1950.00 / 1950.00 400 / 400 500 / 500 Output Total 1325 / 1325 1100 / 1100 750 / 750 Balance 625.00 / 625.00 -700 / -700 -250 / -250 Lab / Micro Data Result Diagrams: 09/16/20 12:54 09/16/20 06:00 Labs: Laboratory Results - last 24 hr 09/15/20 09/16/20 09/16/20 16:18 06:00 06:00 WBC 10.0 RBC 2.54 L Hgb 7.8 L Hct 24.1 L MCV 94.9 MCH 30.7 MCHC 32.4 RDW Std Deviation 46.4 H RDW Coeff of Umu 13.4 Plt Count 211 MPV 10.0 Immature Gran % (Auto) 0.600 Neut % (Auto) 68.4 Lymph % (Auto) 17.1 L Hughes % (Auto) 7.8 Eos % (Auto) 5.8 H Baso % (Auto) 0.3 Absolute Neuts (auto) 6.8 Absolute Lymphs (auto) 1.71 Nucleated RBC % 0 Sodium 139 Potassium 4.4 Chloride 108 H Carbon Dioxide 29.0 Anion Gap 2 L BUN 37 H Creatinine 1.34 H Estim Creat Clear Calc 25.66 Est GFR (MDRD) Af Amer 49 L Est GFR (MDRD) Non-Af 41 L BUN/Creatinine Ratio 27.6 H Glucose 130 H Calcium 8.9 POC Glucose 113 H 09/16/20 09/16/20 09/16/20 06:34 12:16 12:54 WBC RBC Hgb 8.7 L Hct 26.8 L MCV MCH MCHC RDW Std Deviation RDW Coeff of Umu Plt Count MPV Immature Gran % (Auto) Neut % (Auto) Lymph % (Auto) Hughes % (Auto) Eos % (Auto) Baso % (Auto) Absolute Neuts (auto) Absolute Lymphs (auto) Nucleated RBC % Sodium Potassium Chloride Carbon Dioxide Anion Gap BUN Creatinine Estim Creat Clear Calc Est GFR (MDRD) Af Amer Est GFR (MDRD) Non-Af BUN/Creatinine Ratio Glucose Calcium POC Glucose 132 H 169 H Micro: Microbiology 09/13/20 03:50 Mucosa - Nose SARS-CoV-2 Antigen (Rapid) - Final Radiography Diagnostic Testing: Radiology Impression Chest X-Ray 09/16/20 08:50 IMPRESSION: Increased markings at the right lung base suggestive of right basilar atelectasis. Electronically Signed: Andrew Merino MD at 12:24 EDT , Service support , Lung Scan-VQ NM 09/16/20 10:01 IMPRESSION: Normal 99m Tc MAA pulmonary perfusion Tc DTPA aerosol ventilation imaging survey, according to revised PIOPED interpretive criteria. Electronically Signed: Andrew Merino MD at 12:23 EDT , Service support , Physical Exam Narrative General: Alert, Oriented x3, Cooperative morbid obesity BMI 41.6 kg/m? HEENT: Atraumatic, PERRLA, EOMI, Normocephalic Oral: No Gingival or Mucosal Lesions/ Ulcerations Neck: Supple, No JVD, Negative Carotid Bruits Lungs: Air entry diminished in bilateral lung bases. No crepitation/rhonchi. Mild hypoxia. On 3 L of oxygen Cardiovascular: Regular rate and rhythm, Normal S1, Normal S2, diastolic murmur over cardiac apex and holosystolic murmur over LLSB. Abdomen: Bowel Sounds Present, Soft, Non Tender, Non-Distended. 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 : No renal angle tenderness. No suprapubic tenderness. Extremities: No edema, Capillary Refill Less than 3 Seconds Skin: Rash present over groin and mild abrasion and superficial skin ulcer over abdominal panniculus, present since admission Musculoskeletal: Surgical dressing is dry. No hematoma. Bilateral knee arthritis. Right hip pain knee power 4+/5 Neurological: Right-sided residual weakness with moderate aphasia. Psych/Mental Status: Normal Affect, Appropriate. Assessment & Plan Assessment/Plan (1) Hip fracture, left: QUALIFIERS: Encounter type: initial encounter PLAN: 75-year-old female was admitted on [facility] after a fall complicating into left hip pain with intertrochanteric fracture 1. Acute closed comminuted intertrochanteric fracture of the left proximal femur: The patient was seen by peoples[employer] financial[employer] consultant for preoperative cardiovascular risk evaluation and she seems fairly optimized. No chest pain or shortness of breath. Blood pressure is controlled. Twelve-lead EKG shows normal sinus rhythm with no acute changes. Patient has moderate mitral valve stenosis, EF 60% with stage II diastolic dysfunction as per echo September 2019. Paroxysmal A. fib, currently in normal sinus rhythm and heart rate is controlled. Limited fluid intake, suggested by [employer] consultant to prevent left atrial stretch to precipitate A. fib. Continue baby aspirin. 09/14: Drop in hemoglobin 9.1 from 10.4. Continue baby aspirin and heparin subcu. Hemodynamically blood pressure and heart rate is good. Patient had left hip open reduction internal fixation with intramedullary nail fixation. Continue incentive spirometry. Acute blood loss anemia on chronic anemia, from surgery/anticoagulant: Hemoglobin low but does not require PRBC transfusion. Drop in hemoglobin to 8.6. Lovenox 30 mg subcu twice daily. Aspirin discontinued. Stool for occult blood ordered. On ferrous sulfate and vitamin C and Protonix. 09/16: Hemoglobin dropped to 7.8 and then repeat 8.7. Probably due to Lovenox because of her morbid obesity. Lovenox held today and will resume low-dose 30 mg subcu daily from tomorrow a.m. Mild hypoxia: Chest x-ray shows right basilar atelectasis. VQ scan was done because of suspicion of PPN came as normal. 2. Paroxysmal A. fib, moderate mitral stenosis: As mentioned above 3. CKD stage IIIb: BUN/creatinine mildly elevated but better than baseline 1.4. 4. History of DVT -Was treated for 6 months with Coumadin in 2018 5. History of stroke x2 with residual right-sided weakness and mild aphasia and mild bilateral carotid stenosis. Patient follows neurologist. Nonhemodynamically significant carotid artery disease based on neurologist note of April 2020. 6. Hypertension/hyperlipidemia -Continue home medication 7. GERD -Continue PPI 8. Chronic anemia: Hemoglobin 10.5. MCV 96.8 suggestive of anemia of chronic disease. RDW normal. H&H in the evening. On iron supplementation. 9. DM-2 -Hold glimepiride and sitagliptin. Accu-Chek insulin is covered with Humalog sliding scale. A1c 5.7%. Glucose is on the lower side. 10. Other comorbidities include obstructive sleep apnea, hypothyroidism, anxiety and depression and morbid obesity: BMI 43.4. Multiple comorbidities complicates the present care and expect difficult and delay recovery Patient has large abdominal panniculus along with skin abrasion and groin rash, fungal, Marge: Nystatin powder. Discussed with the wound nurse and wound photo reviewed. 11. DVT prophylaxis Lovenox 30 mg subcu twice daily CODE STATUS -Full code Total time of the visit including total time spent in counseling or coordination of care, (more than 50% of the total time, spent in obtaining medical information from nurses and other ancillary care providers,explaining to the patient about labs, imaging, diagnosis and management), review of labs and imaging is 30 minutes. Charges/Coding Visit Charges Inpatient E&M: 76844 Subs Hosp L3
[2020-09-16 16:40] LABS: Bedside Glucose 208 mg/dL (70-110)
[2020-09-16] MEDS: Atorvastatin Calcium 40 MG Tablet PO (21:45)
[2020-09-17] VITALS (7 sets, daily range): BP systolic 113–131; BP diastolic 45–51; PULSE 60–74; RESP 16–18; TEMP 36.6; O2SAT 92–99
[2020-09-17 05:55] LABS: Absolute Neutrophil Count 5.9 X10^3/uL (2.0-7.7); Basophil# 0.01 X10^3/uL; Basophil% 0.1 % (0-1); Hematocrit 24.5 % (37-47); Hemoglobin 7.8 g/dL (12.0-15.0); Lymphocyte % 15.6 % (19-41); Mean Corp Hgb Conc 31.8 g/dL (32-36); Mean Corpuscular Hgb 30.4 pg (27.0-32.0); Mean Corpuscular Volume 95.3 fL (81-99); Mean Platelet Vol. 10.1 fl (6.2-12.0); Monocyte# 0.58 X10^3/uL; Monocyte% 6.9 % (0-10); NRBC Flagged by Analyzer 0 % (0-5); Neutrophil # 5.93 X10^3/uL (2.7-7.7); Neutrophil % 70.9 % (47-70); Platelet Count 211 K/mm3 (150-450); RBC Distribution Width CV 13.4 % (11.6-14.6); RBC Distribution Width SD 47.1 fl (35.1-43.9); Red Blood Count 2.57 M/mm3 (4.2-5.4); White Blood Count 8.4 K/mm3 (4.4-11.0)
[2020-09-17] MEDS: Acetaminophen 500 MG Tablet 1000 MG PO (06:30)
[2020-09-17] MEDS: Levothyroxine 100 MCG Tablet PO (06:31)
[2020-09-17 06:38] LABS: Anion Gap 3 (5-15); BUN 35 mg/dL (7-18); Calcium,Total 8.7 mg/dL (8.5-10.1); Chloride 111 mmol/L (98-107); Creatinine, Serum 1.03 mg/dL (0.55-1.02); EST Glomerular Filtration Rate 55 mL/min (>60); Est Glom Filt Rate - Afr Amer 67 mL/min (>60); Estimated Creatinine Clearance 33.38 ml/min; Glucose 102 mg/dL (74-106); Potassium 4.3 mmol/L (3.5-5.1); Sodium Level 142 mmol/L (136-145)
--- NOTE | 2020-09-17 08:32 | PCM.DC ---
Discharge Instructions Follow Up Care Test Results: Test results from this visit will be discussed in further detail at your follow-up appointment, if applicable. Discharge Plan Admission Admit Date/Time: 09/12/20 19:26 Attending Provider: Mateo Talamantes Primary Care Provider: Flavia Aldrich Consulting Providers: Justen Gonzalez ; Ba Cary Discharge Orders/Prescriptions Prescriptions: No Action aspirin 325 mg tablet,delayed release (DR/EC) 325 mg PO DAILY RF: 0 sennosides-docusate sodium 8.6-50 mg tablet 1 tab-cap PO Q OTHER DAY RF: 0 losartan 100 mg tablet 100 mg PO DAILY RF: 0 fluticasone propionate [Allergy Relief (fluticasone)] 50 mcg/actuation spray,suspension 2 spray INTRANASAL DAILY RF: 0 fish oil-dha-epa 1,200-144-216 mg capsule 1,200 cap PO DAILY RF: 0 ibuprofen 200 mg tablet 200 mg PO Q6H PRN (Reason: Pain Or Fever) RF: 0 atenolol 50 mg tablet 25 mg PO DAILY RF: 0 levothyroxine 25 mcg tablet 100 mcg PO DAILY RF: 0 multivitamin 1 EACH tablet 1 ea PO DAILY RF: 0 sitagliptin 50 MG tablet 50 mg PO DAILY RF: 0 esomeprazole magnesium 20 mg capsule,delayed release(DR/EC) 20 mg PO Q OTHER DAY RF: 0 atorvastatin 40 MG tablet 40 mg PO QHS Qty: 30 RF: 0 magnesium oxide 400 MG tablet 400 mg PO DAILYCM Qty: 30 RF: 0 ferrous sulfate 325 MG tablet 325 mg PO DAILY@1200 Qty: 30 RF: 0 nifedipine 30 MG tablet extended release 24hr 30 mg PO DAILY Qty: 30 RF: 0 sertraline 50 MG tablet 50 mg PO DAILY Qty: 30 RF: 0 glimepiride 1 MG tablet 1 mg PO DAILY Qty: 30 RF: 0 Referrals / Follow Up: Flavia Aldrich MD [Primary Care Provider] -
--- NOTE | 2020-09-17 08:33 | DS.PCM_ITS ---
Providers Date of Admission: 09/12/20 Primary Care Physician: Dr. 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 generating plant Routine Comment: Reason for Consult:: buttocks, abdomen Reason For Visit: L HIP FRACTURE Diagnosis Discharge Diagnosis (1) Hip fracture, left: Status: Acute Code(s): S72.002A - Fracture of unspecified part of neck of left femur, initial encounter for closed fracture Qualifiers: Encounter type: initial encounter Medications at Discharge Home Medications multivitamin 1 ea PO DAILY 09/08/16 sitagliptin 50 mg PO DAILY 06/16/19 atorvastatin 40 mg PO QHS #30 tab 07/28/19 ferrous sulfate 325 mg PO DAILY@1200 #30 tab 07/28/19 magnesium oxide 400 mg PO DAILYCM #30 tab 07/28/19 sertraline 50 mg PO DAILY #30 tab 07/28/19 aspirin 325 mg tablet,delayed release 325 mg PO DAILY 09/01/19 fish oil-dha-epa 1,200 mg-144 mg-216 mg capsule 1,200 cap PO DAILY 09/01/19 fluticasone propionate 50 mcg/actuation nasal spray,suspension 2 spray INTRANASAL DAILY 09/01/19 ibuprofen 200 mg tablet 200 mg PO Q6H PRN 09/01/19 levothyroxine 25 mcg tablet 100 mcg PO DAILY tab 03/10/20 acetaminophen 1,000 mg PO Q8 #0 tab 09/17/20 apixaban [Eliquis] 2.5 mg PO BID #60 tab 09/17/20 ascorbic acid (vitamin C) 500 mg PO BIDCM #0 tab 09/17/20 atenolol 25 mg PO DAILY #0 tab 09/17/20 glimepiride 1 mg PO DAILY #30 tab 09/17/20 losartan 100 mg PO DAILY #0 tab 09/17/20 menthol-zinc oxide [Calmoseptine] 1 applic TOPICAL BID #0 g 09/17/20 nifedipine 30 mg PO DAILY #30 tab.er.24 09/17/20 nystatin [Nyamyc] 1 applic TOPICAL BID #0 g 09/17/20 pantoprazole 40 mg PO DAILY #0 tab 09/17/20 sennosides-docusate sodium 2 tab-cap PO Q OTHER DAY #0 tab 09/17/20 Hospital Course Summary of Care Provided Hospital Course: 75-year-old female was admitted on [facility] after a fall complicating into left hip pain with intertrochanteric fracture 1. Acute closed comminuted intertrochanteric fracture of the left proximal femur: The patient was seen by investment director for preoperative cardiovascular risk evaluation and she seems fairly optimized. No chest pain or shortness of breath. Blood pressure is controlled. Twelve-lead EKG shows normal sinus rhythm with no acute changes. Patient has moderate mitral valve stenosis, EF 60% with stage II diastolic dysfunction as per echo September 2019. Paroxysmal A. fib, currently in normal sinus rhythm and heart rate is controlled. Limited fluid intake, suggested by investment director to prevent left atrial stretch to precipitate A. fib. Baby aspirin was discontinued as patient had drop in hemoglobin and on Lovenox for DVT prophylaxis. Acute blood loss anemia on chronic anemia, from surgery/anticoagulant: Patient had drop in hemoglobin from baseline 10.5g to 7.8 g% most likely from surgical blood loss and anticoagulant Lovenox. Lovenox was held temporarily. Aspirin and NSAIDs discontinued. Lovenox dose was decreased to 30 mg subcut once daily based on creatinine clearance. Discharged on Eliquis 2.5 mg twice daily for 30 days. Resume aspirin once Eliquis 30-day course completed. Hemoglobin low but does not require PRBC transfusion. On ferrous sulfate and vitamin C. Mild hypoxia: Chest x-ray shows right basilar atelectasis. VQ scan was done and test came normal. PE ruled out. 2. Paroxysmal A. fib, moderate mitral stenosis: As mentioned above 3. CKD stage IIIb: BUN/creatinine mildly elevated but better than baseline 1.4. Estimated creatinine clearance around 33 mL/min 4. History of DVT -Was treated for 6 months with Coumadin in 2018 5. History of stroke x2 with residual right-sided weakness and mild aphasia and mild bilateral carotid stenosis. Patient follows neurologist. Nonhemodynamically significant carotid artery disease based on neurologist note of April 2020. 6. Hypertension/hyperlipidemia -Continue home medication 7. GERD -Continue PPI 8. Chronic anemia: Hemoglobin 10.5. MCV 96.8 suggestive of anemia of chronic disease. RDW normal. H&H in the evening. On iron supplementation. 9. DM-2 -Hold glimepiride and sitagliptin. Accu-Chek insulin is covered with Humalog sliding scale. A1c 5.7%. Glucose is on the lower side. 10. Other comorbidities include obstructive sleep apnea, hypothyroidism, anxiety and depression and morbid obesity: BMI 43.4. Multiple comorbidities complicates the present care and expect difficult and delay recovery Patient has large abdominal panniculus along with skin abrasion and groin rash, fungal, Marge: Nystatin powder. Discussed with the wound nurse and wound tutu to reviewed. 11. DVT prophylaxis Lovenox 30 mg subcu once daily CODE STATUS -Full code Discharge medication reconciliation done. Discharge follow-up instructions completed. Discharge process discussed with the patient and all questions were answered to patient's satisfaction. Discharge to TCU. Follow-up Dr. Cary in 2 weeks Total time spent, exact 35 minutes on discharge meds reconciliation, examination, coordination of care with nurses and ancillary staff, review of imaging and blood test and discussion with the patient on follow-up instructions Physical Exam Narrative Seen and examined. Patient had physical therapy in the morning. Sitting on the chair. No respiratory distress or shortness of breath. On 3 L of oxygen. General: Alert, Oriented x3, Cooperative morbid obesity BMI 41.6 kg/m? HEENT: Atraumatic, PERRLA, EOMI, Normocephalic Oral: No Gingival or Mucosal Lesions/ Ulcerations Neck: Supple, No JVD, Negative Carotid Bruits Lungs: Air entry diminished in bilateral lung bases. No crepitation/rhonchi. Cardiovascular: Regular rate and rhythm, Normal S1, Normal S2, diastolic murmur over cardiac apex and holosystolic murmur over LLSB. Abdomen: Bowel Sounds Present, Soft, Non Tender, Non-Distended. 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 : No renal angle tenderness. No suprapubic tenderness. Extremities: No edema, Capillary Refill Less than 3 Seconds Skin: Rash present over groin and mild abrasion and superficial skin ulcer over abdominal panniculus, present since admission Musculoskeletal: Surgical dressing is dry. No hematoma. Bilateral knee arthritis. Right hip pain knee power 4+/5 Neurological: Right-sided residual weakness with moderate aphasia. Psych/Mental Status: Normal Affect, Appropriate. Weight / BMI Weight Weight: 212 lb 15.465 oz Body Mass Index (BMI) 41.5 ABG / Lab / Microbiology Data Result Diagrams: 09/17/20 05:20 09/17/20 05:20 Laboratory: Laboratory Results - last 24 hr 09/16/20 09/16/20 09/16/20 12:16 12:54 16:27 WBC RBC Hgb 8.7 L Hct 26.8 L MCV MCH MCHC RDW Std Deviation RDW Coeff of Umu Plt Count MPV Immature Gran % (Auto) Neut % (Auto) Lymph % (Auto) [place] % (Auto) Eos % (Auto) Baso % (Auto) Absolute Neuts (auto) Absolute Lymphs (auto) Nucleated RBC % Sodium Potassium Chloride Carbon Dioxide Anion Gap BUN Creatinine Estim Creat Clear Calc Est GFR (MDRD) Af Amer Est GFR (MDRD) Non-Af BUN/Creatinine Ratio Glucose Calcium POC Glucose 169 H 208 H 09/17/20 09/17/20 05:20 05:20 WBC 8.4 RBC 2.57 L Hgb 7.8 L Hct 24.5 L MCV 95.3 MCH 30.4 MCHC 31.8 L RDW Std Deviation 47.1 H RDW Coeff of Umu 13.4 Plt Count 211 MPV 10.1 Immature Gran % (Auto) 0.500 Neut % (Auto) 70.9 H Lymph % (Auto) 15.6 L [place] % (Auto) 6.9 Eos % (Auto) 6.0 H Baso % (Auto) 0.1 Absolute Neuts (auto) 5.9 Absolute Lymphs (auto) 1.30 Nucleated RBC % 0 Sodium 142 Potassium 4.3 Chloride 111 H Carbon Dioxide 28.0 Anion Gap 3 L BUN 35 H Creatinine 1.03 H Estim Creat Clear Calc 33.38 Est GFR (MDRD) Af Amer 67 Est GFR (MDRD) Non-Af 55 L BUN/Creatinine Ratio 34.0 H Glucose 102 Calcium 8.7 POC Glucose Microbiology: Microbiology 09/13/20 03:50 Mucosa - Nose SARS-CoV-2 Antigen (Rapid) - Final Radiography Diagnostic Testing: Radiology Impression Chest X-Ray 09/16/20 08:50 IMPRESSION: Increased markings at the right lung base suggestive of right basilar atelectasis. Electronically Signed: Andrew Merino MD at 12:24 EDT , Service support , Lung Scan-VQ NM 09/16/20 10:01 IMPRESSION: Normal 99m Tc MAA pulmonary perfusion Tc DTPA aerosol ventilation imaging survey, according to revised PIOPED interpretive criteria. Electronically Signed: Andrew Merino MD at 12:23 EDT , Service support , Meaningful Use Info Meaningful Use Diagnoses (Choose all that apply): None applicable Discharge Plan Admission Admit Date/Time: 09/12/20 19:26 Primary Reason for Your Visit: Left hip fracture status post ORIF Attending Provider: Mateo Talamantes Primary Care Provider: Flavia Aldrich Consulting Providers: Justen Gonzalez ; Ba Cary Discharge Orders/Prescriptions Prescriptions: New ascorbic acid (vitamin C) 500 mg Tablet 500 mg PO BIDCM Qty: 0 RF: 0 Eliquis 2.5 mg Tablet 2.5 mg PO BID Qty: 60 RF: 0 acetaminophen 500 mg Tablet 1,000 mg PO Q8 Qty: 0 RF: 0 pantoprazole 40 mg Tablet,Delayed Release (Dr/Ec) 40 mg PO DAILY Qty: 0 RF: 0 nystatin [Nyamyc] 100,000 unit/gram Powder 1 applic topical BID Qty: 0 RF: 0 Calmoseptine 0.44-20.6 % Ointment 1 applic topical BID Qty: 0 RF: 0 Continued fluticasone propionate [Allergy Relief (fluticasone)] 50 mcg/actuation spray,suspension 2 spray INTRANASAL DAILY RF: 0 fish oil-dha-epa 1,200-144-216 mg capsule 1,200 cap PO DAILY RF: 0 levothyroxine 25 mcg tablet 100 mcg PO DAILY RF: 0 multivitamin 1 EACH tablet 1 ea PO DAILY RF: 0 sitagliptin 50 MG tablet 50 mg PO DAILY RF: 0 atorvastatin 40 MG tablet 40 mg PO QHS Qty: 30 RF: 0 magnesium oxide 400 MG tablet 400 mg PO DAILYCM Qty: 30 RF: 0 ferrous sulfate 325 MG tablet 325 mg PO DAILY@1200 Qty: 30 RF: 0 sertraline 50 MG tablet 50 mg PO DAILY Qty: 30 RF: 0 nifedipine 30 MG tablet extended release 24hr 30 mg PO DAILY Qty: 30 RF: 0 glimepiride 1 MG tablet 1 mg PO DAILY Qty: 30 RF: 0 losartan 100 mg tablet 100 mg PO DAILY Qty: 0 RF: 0 atenolol 50 mg tablet 25 mg PO DAILY Qty: 0 RF: 0 Changed sennosides-docusate sodium 8.6-50 mg tablet 2 tab-cap PO Q OTHER DAY Qty: 0 RF: 0 Held aspirin 325 mg tablet,delayed release (DR/EC) 325 mg PO DAILY RF: 0 Hold Instructions: Resume on 10/15/20. Hold while patient is on Eliquis for DVT prophylaxis for about 30 days. Discontinued esomeprazole magnesium 20 mg capsule,delayed release(DR/EC) 20 mg PO Q OTHER DAY RF: 0 No Action ibuprofen 200 mg tablet 200 mg PO Q6H PRN (Reason: Pain Or Fever) RF: 0 Referrals / Follow Up: Flavia Aldrich MD [Primary Care Provider] - Justen Gonzalez MD [STAFF PHYSICIAN] - Within 2 Weeks Ba Cary MD [STAFF PHYSICIAN] - Within 1 Week Disposition Disposition (needs filled in before D/C Order can be placed): [facility] Facility Charges/Coding Visit Charges Inpatient E&M: 29836 Disch Hosp
--- NOTE | 2020-09-17 08:33 | TREXTCAR_ITS ---
Diet 09/14/20 04:37 Diet: Cardiac - Heart Healthy Is pt able to select menu?: Yes Diet: Consistent Carb - Calorie Controlled Is pt able to select menu?: Yes How many daily calories?: 1800 calorie Routine Orders/Code Status Suppository Type: Dulcolax 10mg Suppository Frequency: Daily PRN O2 Liters per Minute: 2-3 liters to keep pulse ox more than 92% O2 Frequency: Continuous Routine Lab Work: CBC (Weekly CBC and BMP.) and BMP Code Status: Full Code Wound(s) Lower abdomen: Wound Type: scabbed area buttock: Wound Type: 2 sheared areas LEFT HIP: Wound Type: Surgical Incision left foot bunion: Wound Type: scab Therapies Weight Bearing: Weight bearing as tolerated Extremity Affected:: Bilateral Lower Physical Therapy: Eval and Treat Occupational Therapy: Eval and Treat Speech Therapy: Eval and Treat Problem/Diagnosis (1) Hip fracture, left: Status: Acute Allergies/Procedures Done in Hospital Allergies adhesive tape Allergy (Intermediate, Verified 04/15/20 16:51) Unknown Sulfa (Sulfonamide Antibiotics) Allergy (Verified 04/15/20 16:51) Rash lisinopril Adverse Reaction (Verified 04/15/20 16:51) cough Type of Care/Length of Stay Estimated LOS: Convalescent Care Less Than 30 days Type of Care Needed: Skilled Rehab Potential: Good Prognosis: Good Additional Orders/Day of Discharge Day of Discharge: 09/17/20 Dietary and Speech Recommendations Dietitian Recommendations/Changes: Continue Cardiac/ 1800 calorie diet. Will discontinue ONS glucerna at [facility] as pt refusing. Discharge Plan Admission Admit Date/Time: 09/12/20 19:26 Primary Reason for Your Visit: Left hip fracture status post ORIF Attending Provider: Mateo Talamantes Primary Care Provider: Flavia Aldrich Consulting Providers: Justen Gonzalez ; Ba Cary Discharge Orders/Prescriptions Prescriptions: New ascorbic acid (vitamin C) 500 mg Tablet 500 mg PO BIDCM Qty: 0 RF: 0 Eliquis 2.5 mg Tablet 2.5 mg PO BID Qty: 60 RF: 0 acetaminophen 500 mg Tablet 1,000 mg PO Q8 Qty: 0 RF: 0 pantoprazole 40 mg Tablet,Delayed Release (Dr/Ec) 40 mg PO DAILY Qty: 0 RF: 0 nystatin [Nyamyc] 100,000 unit/gram Powder 1 applic topical BID Qty: 0 RF: 0 Calmoseptine 0.44-20.6 % Ointment 1 applic topical BID Qty: 0 RF: 0 Continued fluticasone propionate [Allergy Relief (fluticasone)] 50 mcg/actuation spray,suspension 2 spray INTRANASAL DAILY RF: 0 fish oil-dha-epa 1,200-144-216 mg capsule 1,200 cap PO DAILY RF: 0 levothyroxine 25 mcg tablet 100 mcg PO DAILY RF: 0 multivitamin 1 EACH tablet 1 ea PO DAILY RF: 0 sitagliptin 50 MG tablet 50 mg PO DAILY RF: 0 atorvastatin 40 MG tablet 40 mg PO QHS Qty: 30 RF: 0 magnesium oxide 400 MG tablet 400 mg PO DAILYCM Qty: 30 RF: 0 ferrous sulfate 325 MG tablet 325 mg PO DAILY@1200 Qty: 30 RF: 0 sertraline 50 MG tablet 50 mg PO DAILY Qty: 30 RF: 0 nifedipine 30 MG tablet extended release 24hr 30 mg PO DAILY Qty: 30 RF: 0 glimepiride 1 MG tablet 1 mg PO DAILY Qty: 30 RF: 0 losartan 100 mg tablet 100 mg PO DAILY Qty: 0 RF: 0 atenolol 50 mg tablet 25 mg PO DAILY Qty: 0 RF: 0 Changed sennosides-docusate sodium 8.6-50 mg tablet 2 tab-cap PO Q OTHER DAY Qty: 0 RF: 0 Held aspirin 325 mg tablet,delayed release (DR/EC) 325 mg PO DAILY RF: 0 Hold Instructions: Resume on 10/15/20. Hold while patient is on Eliquis for DVT prophylaxis for about 30 days. Discontinued esomeprazole magnesium 20 mg capsule,delayed release(DR/EC) 20 mg PO Q OTHER DAY RF: 0 No Action ibuprofen 200 mg tablet 200 mg PO Q6H PRN (Reason: Pain Or Fever) RF: 0 Referrals / Follow Up: Flavia Aldrich MD [Primary Care Provider] - Disposition Disposition (needs filled in before D/C Order can be placed): Care Home Facility
[2020-09-17] MEDS: Sertraline 50 MG Tablet PO (09:19)
[2020-09-17] MEDS: Ascorbic Acid 500 MG Tablet PO (09:19)
[2020-09-17] MEDS: LINAGLIPTIN 5 MG TABLET PO (09:19)
[2020-09-17] MEDS: Fluticasone 0.05% 1 SPRAY NASAL.SRY 2 SPRAY NASAL (09:19)
[2020-09-17] MEDS: Magnesium Chloride 64 MG Delay Rel.Tablet 128 MG PO (09:20)
[2020-09-17] MEDS: Omega-3 Acid Ethyl Esters 1 GM Capsule PO (09:20)
[2020-09-17] MEDS: Multivitamins,Therapeutic Tablet 1 TABLET PO (09:21)
[2020-09-17] MEDS: Pantoprazole Sodium 40 MG Tablet PO (09:21)
[2020-09-17] MEDS: Menthol/Lanolin/Calamine/Znox 113 GM Tube 1 APPLIC TOPICAL (09:22)
[2020-09-17] MEDS: Atenolol 25 MG Tablet PO (09:22)
[2020-09-17] MEDS: Glimepiride 1 MG Tablet PO (09:23)
[2020-09-17] MEDS: Nystatin Powder 15gm Bottle 1 APPLIC TOPICAL (09:23)
[2020-09-17] MEDS: NIFEdipine 30 MG Tablet PO (09:24)
--- NOTE | 2020-09-17 10:14 | CASEMGMT ---
Addendum entered by Shani Moulton 09/17/20 10:47: Med list faxed to [facility]. OPAL [facility] Original Note: SW spoke w/Evelina in TCU, they got precert for pt today. SW let pt know, inquired if she would like SW to call family, she asked SW to call her sister. SW called pt's sister Norah Weiner, let her know pt is going to TCU today. OPAL [facility]
[2020-09-17] MEDS: Losartan Potassium 100 MG Tablet PO (11:06)
[2020-09-17 11:26] LABS: Bedside Glucose 103 mg/dL (70-110)
[2020-09-17 11:35] LABS: Bedside Glucose 139 mg/dL (70-110)
--- NOTE | 2020-09-17 12:51 | NURSING ---
Report called the [facility] in TCU.
[2020-09-17] MEDS: Ferrous Sulfate 325 MG Tablet PO (12:54)
== END 2020-09-17 13:12 | disposition skilled nursing facility (03) | DRG 481 ==
LOC: ED 18:20 → MS3 19:39
PROVIDERS: Orthopaedic Surgery; Admitting Provider Internal Medicine; Emergency Provider Emergency Medicine; PCP Internal Medicine; Visit Provider Internal Medicine
PROC: 0QS706Z Reposition Left Upper Femur with Intramedullary Internal Fixation Device, Open Approach (ICD-10-PCS; CPT 27245; principal; 2020-09-13 13:00)
DX: S72.142A Displaced intertrochanteric fracture of left femur, initial encounter for closed fracture (principal); Z68.41 Body mass index [BMI] 40.0-44.9, adult; I69.351 Hemiplegia and hemiparesis following cerebral infarction affecting right dominant side; D62 Acute posthemorrhagic anemia; J98.11 Atelectasis; F32.9 Major depressive disorder, single episode, unspecified; E11.22 Type 2 diabetes mellitus with diabetic chronic kidney disease; I12.9 Hypertensive chronic kidney disease with stage 1 through stage 4 chronic kidney disease, or unspecified chronic kidney disease; K21.9 Gastro-esophageal reflux disease without esophagitis; E78.5 Hyperlipidemia, unspecified; I69.320 Aphasia following cerebral infarction; G47.33 Obstructive sleep apnea (adult) (pediatric); N18.32 Chronic kidney disease, stage 3b; E03.9 Hypothyroidism, unspecified; I65.23 Occlusion and stenosis of bilateral carotid arteries; Z86.718 Personal history of other venous thrombosis and embolism; I05.0 Rheumatic mitral stenosis; I48.0 Paroxysmal atrial fibrillation; W01.0XXA Fall on same level from slipping, tripping and stumbling without subsequent striking against object, initial encounter; Y92.009 Unspecified place in unspecified non-institutional (private) residence as the place of occurrence of the external cause; Z88.2 Allergy status to sulfonamides; Z79.82 Long term (current) use of aspirin; H81.10 Benign paroxysmal vertigo, unspecified ear; D63.1 Anemia in chronic kidney disease; L30.4 Erythema intertrigo; S30.811A Abrasion of abdominal wall, initial encounter; E66.01 Morbid (severe) obesity due to excess calories; I25.2 Old myocardial infarction
CPT/HCPCS: 36415; 71045; 72170; 73502; 73552; 76000; 78582; 80048; 80053; 82962; 83036; 83735; 84100; 84443; 85014; 85018; 85025; 86850; 86900; 86901; 87426; 93005; 94762; 97163; 97166; 97530; 97535; 97802; 99251; 99285; A9540; A9567; C1713; J7030; J7120; A4216; G0463; J2405; J3490

== ENCOUNTER 2020-09-17 13:24 | Inpatient (IN) | payer MEDICARE, SELFPAY ==
[2020-09-13 11:47] VITALS: BMI 41.5
[2020-09-17 13:32] VITALS: BP 128/54; PULSE 69; PULSE 70; RESP 16; TEMP 36.7; O2SAT 93; O2SAT 96; BMI 43.0
--- NOTE | 2020-09-17 13:54 | HP.PCM_ITS ---
HPI - General General Date of Admission: 09/17/20 HPI Narrative 09/12/2020 CATHERINE STOVER, is a 75 Female who presented to [facility] Emergency Department with lower extremity injury. 09/13/2020 EKG normal sinus rhythm, normal EKG. Left hip pain after fall, unable to walk, no loss of consciousness, no head injury. X-ray shows left hip fracture. 09/12/2020 Admit to Hospital. Prepare for surgery. 09/13/2020 Dr. Gonzalez thought patient optimized for surgery. 09/13/2020 Dr. Ba Cary performed left hip open reduction internal fixation, intramedullary nail fixation. 09/14/2020 Left hip pain improved. Hemoglobin dropped from 10.4 to 9.1 Aspirin, Subcutaneous heparin for DVT/stroke prevention. Nystatin powder for tinea corporis under pannus. 09/15/2020 Hemoglobin dropped to 8.6. Stop Aspirin. 09/16/2020 Hemoglobin 8.7. Hold Lovenox. 09/17/2020 Eliquis 2.5MG twice daily x 30 days for DVT prophylaxis, then resume aspirin 81MG daily for stroke prevention. 09/17/2020 Admit to TCU with debility, here for rehabilitation, strengthening, prior to discharge home alone. [facility] Medical History (Updated 09/17/20 @ 14:[address] Noe Wong MD) Acute ischemic left middle cerebral artery (MCA) stroke Aphasia BPPV (benign paroxysmal positional vertigo) Cerebrovascular accident involving cerebellum CKD (chronic kidney disease), stage III Closed fracture of left hip requiring operative repair Depression Diabetes mellitus, type II Diabetic nephropathy DVT (deep venous thrombosis) Dysarthria Dysmetabolic syndrome X Essential hypertension GERD (gastroesophageal reflux disease) Grade II diastolic dysfunction HLD (hyperlipidemia) Hypothyroid Hypoxia Intertrigo Iron deficiency Left atrial enlargement Morbid obesity with BMI of 40.0-44.9, adult Normochromic normocytic anemia Occlusion of right vertebral artery Physical debility Proteinuria Sleep-disordered breathing Urinary tract infection Home Medications multivitamin 1 ea PO DAILY 09/08/16 [History Last Taken 06/15/19] sitagliptin 50 mg PO DAILY 06/16/19 [History Last Taken 06/15/19] aspirin 325 mg tablet,delayed release 325 mg PO DAILY 09/01/19 [History Last Taken Unknown] fish oil-dha-epa 1,200 mg-144 mg-216 mg capsule 1,200 cap PO DAILY 09/01/19 [History Last Taken Unknown] fluticasone propionate 50 mcg/actuation nasal spray,suspension 2 spray INTRANASAL DAILY 09/01/19 [History Last Taken Unknown] ibuprofen 200 mg tablet 200 mg PO Q6H PRN 09/01/19 [History Last Taken Unknown] levothyroxine 25 mcg tablet 100 mcg PO DAILY tab 03/10/20 [History Last Taken Unknown] acetaminophen 1,000 mg PO Q8 09/17/20 [History Last Taken Unknown] apixaban [Eliquis] 2.5 mg PO BID 09/17/20 [History Last Taken Unknown] ascorbic acid (vitamin C) 500 mg PO BIDCM 09/17/20 [History Last Taken Unknown] atenolol 25 mg PO DAILY 09/17/20 [History Last Taken Unknown] atorvastatin 40 mg PO QHS 09/17/20 [History Last Taken Unknown] ferrous sulfate 325 mg PO DAILY@1200 09/17/20 [History Last Taken Unknown] glimepiride 1 mg PO DAILY 09/17/20 [History Last Taken Unknown] losartan 100 mg PO DAILY 09/17/20 [History Last Taken Unknown] magnesium oxide 400 mg PO DAILYCM 09/17/20 [History Last Taken Unknown] menthol-zinc oxide [Calmoseptine] 1 applic TOPICAL BID 09/17/20 [History Last Taken Unknown] nifedipine 30 mg PO DAILY 09/17/20 [History Last Taken Unknown] nystatin [Nyamyc] 1 applic TOPICAL BID 09/17/20 [History Last Taken Unknown] pantoprazole 40 mg PO DAILY 09/17/20 [History Last Taken Unknown] sennosides-docusate sodium 2 tab-cap PO Q OTHER DAY 09/17/20 [History Last Taken Unknown] sertraline 50 mg PO DAILY 09/17/20 [History Last Taken Unknown] Allergy/AdvReac Type Severity Reaction Status Date / Time adhesive tape Allergy Intermediate Unknown Verified 04/15/20 16:51 Sulfa (Sulfonamide Allergy Rash Verified 04/15/20 16:51 Antibiotics) lisinopril AdvReac cough Verified 04/15/20 16:51 Family History Grandfather Alcoholism Mother Angina at rest Arthritis Diabetes Myocardial infarction, Onset Age: 40 another @70 Heart disease Hypertension Sister Arthritis Bleeding disorder Blood clots Non Hodgkin's lymphoma Kidney cysts Osteoporosis Thyroid disorder Surgical History History of cataract extraction Social History (Updated 09/17/20 @ 14:[address] Noe Wong MD) household members: none Smoking Status: Never smoker alcohol intake: former details: Social substance use type: does not use ROS Constitutional Constitutional: Denies chills, fever(s) or weight gain ENT HEENT: Denies headache(s), nasal congestion or nasal discharge Cardiovascular Cardiovascular: Denies chest pain or palpitations Respiratory/Chest Respiratory/Chest: Denies cough, excessive phlegm production or shortness of breath with exertion Gastrointestinal Gastrointestinal: Denies abdominal pain, nausea or vomiting Genitourinary Genitourinary: Denies dysuria Musculoskeletal Musculoskeletal: Denies joint pain or joint swelling Integumentary Integumentary: Denies rash or wounds Neurologic Neurologic: Denies focal weakness, numbness or tingling Psychiatric Psychiatric: Reports auditory hallucinations; Denies anxiety, depression, homicidal ideation or suicidal ideation Vital Signs Vital Signs Vital Signs: 09/17/20 13:32 Temperature 98.1 F Temperature Source Temporal Pulse Rate 70 Respiratory Rate 16 Blood Pressure 128/54 H Blood Pressure Mean 78 Blood Pressure Source Monitor Blood Pressure Position Semi-Fowlers Blood Pressure Location Left Arm Pulse Ox 96 Oxygen Delivery Method Room Air Weight Body Mass Index (BMI) 41.5 Physical Exam Const alert and oriented x3 General Appearance: cooperative HEENT normocephalic Eyes PERRL and EOMs intact bilaterally Neck supple, no JVD and no carotid bruits Resp normal respiratory effort, normal air movement and clear to auscultation bilaterally Cardio regular rate and regular rhythm GI normal to inspection, nondistended, normoactive bowel sounds, non-tender and non-distended Extremity normal capillary refill General Extremity: Negative for edema Skin no rashes or lesions noted General Skin Exam: no breakdown Psych affect normal Appearance: appropriate Assessment & Plan Assessment/Plan (1) Debility: (2) Closed left hip fracture: (3) Stroke: (4) Aphasia: (5) BPPV (benign paroxysmal positional vertigo): (6) Depression: (7) Diabetes mellitus: (8) Hypertension: (9) GERD (gastroesophageal reflux disease): (10) Hyperlipidemia: (11) Hypothyroidism: (12) Iron deficiency anemia: (13) Body mass index (BMI) greater than 40: (14) Hypomagnesemia: (15) Bilateral carotid artery stenosis: PLAN: 75 year old female with below past medical history hospitalized for left hip fracture, underwent open reduction internal fixation intramedullary karma 09/13/[address] Ba Cary, complicated by post-operative anemia, admitted to TCU with debility, here for rehabilitation, strengthening, prior to discharge home alone. * Debility - PT/OT. * Pain - Tylenol 1000MG Q8H, Oxycodone 5MG Q4H PRN pain (6-10). * Bowel - Miralax 17GM daily, Senna/colace 2 tablets every other day. * Adult immunization - Administer Prevnar 13, Pneumovax 23, Fluzone, COVID19 vaccine as appropriate. * DVT prophylaxis - Eliquis 2.5MG twice daily x 27 days. * Vitamin C deficiency - Vitamin C 500MG twice daily. * Stroke - Aspirin 81MG daily starting 10/15/2020. * Hypertension - Atenolol 25MG daily, Losartan 100MG daily,Nifedipine 30MG daily. * Hyperlipidemia - Atorvastatin 40MG QHS. * Iron deficiency anemia - Ferrous sulfate 325MG daily. * Allergic rhinitis - Flonase 2 sprays nasal daily. * Diabetes Mellitus - Glimepiride 1MG daily, Tradjenta 5MG daily. * Hypothyroidism - Levothyroxine 100MCG daily. * Hypomagnesemia - Magnesium 400MG daily. * Skin irritation - Calmoseptine topical BID. * Nutrition - MVI daily. * Tinea Corporis - Nystatin powder topical BID. * GERD - Pantoprazole 40MG daily. * Depression - Sertraline 50MG daily, stable chronic ocean transportation intermediary use, GDR not recommended.
--- NOTE | 2020-09-17 16:16 | CASEMGMT ---
Social Work Met with pt for initial assessment. Discussed code status and assisted pt in completing MOLST form. Pt would like to be DNRCCA, no intubation, no feeding tubes. Communication given to phsician and placed in pt chart. SW explained [facility] insurance benefit with NRD 09/21 and continued stay is not guaranteed. Pt lives at home alone and is hopeful she will be able to return home, but pt is also realistic that this may not be possible and may be interested in assisted living. KARIS to follow for discharge planning and support. Pamela LOOMIS
[2020-09-17 16:55] LABS: Bedside Glucose 212 mg/dL (70-110)
[2020-09-17] MEDS: APIXABAN 2.5 MG TABLET PO (17:43)
[2020-09-17] MEDS: Ascorbic Acid 500 MG Tablet PO (17:44)
[2020-09-17] MEDS: Menthol/Lanolin/Calamine/Znox 113 GM Tube 1 APPLIC TOPICAL (17:45)
[2020-09-17] MEDS: Nystatin Powder 15gm Bottle 1 APPLIC TOPICAL (17:45)
[2020-09-17] MEDS: Acetaminophen 500 MG Tablet 1000 MG PO (20:50)
[2020-09-17] MEDS: Atorvastatin Calcium 40 MG Tablet PO (20:51)
[2020-09-17 21:20] LABS: Bedside Glucose 198 mg/dL (70-110)
[2020-09-18 06:00] VITALS: BP 127/50; PULSE 63; RESP 18; TEMP 36.4; O2SAT 95
[2020-09-18] MEDS: Fluticasone 0.05% 1 SPRAY NASAL.SRY 2 SPRAY NASAL (06:03)
[2020-09-18] MEDS: LINAGLIPTIN 5 MG TABLET PO (06:04)
[2020-09-18] MEDS: APIXABAN 2.5 MG TABLET PO ×2 (06:04→17:48)
[2020-09-18] MEDS: Polyethylene Glycol 3350 17 GM PACKET PO (06:04)
[2020-09-18] MEDS: Sertraline 50 MG Tablet PO (06:04)
[2020-09-18] MEDS: Pantoprazole Sodium 40 MG Tablet PO (06:04)
[2020-09-18] MEDS: NIFEdipine 30 MG Tablet PO (06:04)
[2020-09-18] MEDS: Atenolol 25 MG Tablet PO (06:04)
[2020-09-18] MEDS: Acetaminophen 500 MG Tablet 1000 MG PO ×3 (06:04→20:08)
[2020-09-18] MEDS: Levothyroxine 100 MCG Tablet PO (06:04)
[2020-09-18] MEDS: Losartan Potassium 100 MG Tablet PO (06:04)
[2020-09-18] MEDS: Nystatin Powder 15gm Bottle 1 APPLIC TOPICAL ×2 (06:05→17:47)
[2020-09-18] MEDS: Menthol/Lanolin/Calamine/Znox 113 GM Tube 1 APPLIC TOPICAL ×2 (06:05→17:47)
[2020-09-18 06:31] LABS: Bedside Glucose 113 mg/dL (70-110)
[2020-09-18 06:55] VITALS: O2SAT 93
[2020-09-18 08:16] LABS: Absolute Lymphocyte Count 1.31 X10^3/uL (0.83-4.51); Absolute Neutrophil Count 7.4 X10^3/uL (2.0-7.7); Basophil# 0.03 X10^3/uL; Basophil% 0.3 % (0-1); Eosinophil# 0.44 X10^3/uL; Eosinophils% 4.4 % (0-5); Hematocrit 25.1 % (37-47); Lymphocyte # 1.31 X10^3/ul (0.83-4.51); Mean Corp Hgb Conc 31.9 g/dL (32-36); Mean Corpuscular Hgb 30.3 pg (27.0-32.0); Mean Corpuscular Volume 95.1 fL (81-99); Monocyte# 0.88 X10^3/uL; Monocyte% 8.7 % (0-10); NRBC Flagged by Analyzer 0 % (0-5); Neutrophil # 7.38 X10^3/uL (2.7-7.7); Neutrophil % 73.2 % (47-70); Platelet Count 303 K/mm3 (150-450); RBC Distribution Width CV 13.5 % (11.6-14.6); RBC Distribution Width SD 46.7 fl (35.1-43.9); Red Blood Count 2.64 M/mm3 (4.2-5.4); White Blood Count 10.1 K/mm3 (4.4-11.0)
[2020-09-18 08:22] LABS: Anion Gap 4 (5-15); BUN 40 mg/dL (7-18); BUN/Creat Ratio 31.5 RATIO (10-20); Calcium,Total 9.1 mg/dL (8.5-10.1); Chloride 108 mmol/L (98-107); Creatinine, Serum 1.27 mg/dL (0.55-1.02); EST Glomerular Filtration Rate 44 mL/min (>60); Est Glom Filt Rate - Afr Amer 53 mL/min (>60); Estimated Creatinine Clearance 27.07 ml/min; Glucose 107 mg/dL (74-106); Potassium 4.3 mmol/L (3.5-5.1); Sodium Level 140 mmol/L (136-145)
[2020-09-18] MEDS: Magnesium Chloride 64 MG Delay Rel.Tablet 128 MG PO (09:03)
[2020-09-18] MEDS: Glimepiride 1 MG Tablet PO (09:03)
[2020-09-18] MEDS: Multivitamins,Therapeutic Tablet 1 TABLET PO (09:03)
[2020-09-18] MEDS: Ascorbic Acid 500 MG Tablet PO ×2 (09:04→17:48)
[2020-09-18] MEDS: Tuberculin,Purif.prot.deriv. 50 TU/ML Vial 0.1 ML ID (09:09)
[2020-09-18] MEDS: 0.9% Saline Lock 10 ML Syringe IV (09:11)
[2020-09-18 09:40] VITALS: PULSE 60; RESP 18; O2SAT 96
[2020-09-18 11:00] LABS: Bedside Glucose 148 mg/dL (70-110)
[2020-09-18] MEDS: Ferrous Sulfate 325 MG Tablet PO (11:49)
[2020-09-18 13:55] VITALS: BP 109/56; PULSE 68; RESP 16; TEMP 36.1; O2SAT 97
[2020-09-18 16:20] LABS: Bedside Glucose 182 mg/dL (70-110)
[2020-09-18] MEDS: Atorvastatin Calcium 40 MG Tablet PO (20:08)
[2020-09-18 21:11] LABS: Bedside Glucose 210 mg/dL (70-110)
--- NOTE | 2020-09-18 23:04 | PCA ---
Declined to wash up this evening, stating she did in the morning. em
[2020-09-19 06:25] LABS: Bedside Glucose 109 mg/dL (70-110)
[2020-09-19 06:38] VITALS: BP 118/50; PULSE 64; RESP 18; O2SAT 96
[2020-09-19] MEDS: Fluticasone 0.05% 1 SPRAY NASAL.SRY 2 SPRAY NASAL (06:41)
[2020-09-19] MEDS: Levothyroxine 100 MCG Tablet PO (06:42)
[2020-09-19] MEDS: LINAGLIPTIN 5 MG TABLET PO (06:42)
[2020-09-19] MEDS: Atenolol 25 MG Tablet PO (06:42)
[2020-09-19] MEDS: APIXABAN 2.5 MG TABLET PO ×2 (06:42→18:31)
[2020-09-19] MEDS: Pantoprazole Sodium 40 MG Tablet PO (06:42)
[2020-09-19] MEDS: Sertraline 50 MG Tablet PO (06:42)
[2020-09-19] MEDS: Acetaminophen 500 MG Tablet 1000 MG PO ×3 (06:43→20:17)
[2020-09-19] MEDS: Menthol/Lanolin/Calamine/Znox 113 GM Tube 1 APPLIC TOPICAL ×2 (06:43→18:32)
[2020-09-19] MEDS: Nystatin Powder 15gm Bottle 1 APPLIC TOPICAL ×2 (06:44→18:33)
[2020-09-19] MEDS: Multivitamins,Therapeutic Tablet 1 TABLET PO (09:42)
[2020-09-19] MEDS: Magnesium Chloride 64 MG Delay Rel.Tablet 128 MG PO (09:42)
[2020-09-19] MEDS: Glimepiride 1 MG Tablet PO (09:42)
[2020-09-19] MEDS: Ascorbic Acid 500 MG Tablet PO ×2 (09:43→18:31)
[2020-09-19] MEDS: Senna/Docusate Sodium 1 Tablet 2 TABLET PO (10:06)
[2020-09-19] MEDS: Losartan Potassium 100 MG Tablet PO (10:08)
[2020-09-19] MEDS: NIFEdipine 30 MG Tablet PO (10:08)
[2020-09-19 11:41] LABS: Bedside Glucose 172 mg/dL (70-110)
[2020-09-19] MEDS: Ferrous Sulfate 325 MG Tablet PO (12:05)
[2020-09-19 16:00] VITALS: BP 121/45; PULSE 62; RESP 18; TEMP 36.6; O2SAT 96
[2020-09-19 16:36] LABS: Bedside Glucose 187 mg/dL (70-110)
[2020-09-19 18:36] VITALS: O2SAT 93
[2020-09-19] MEDS: Atorvastatin Calcium 40 MG Tablet PO (20:17)
[2020-09-19 22:50] LABS: Bedside Glucose 176 mg/dL (70-110)
--- NOTE | 2020-09-20 00:46 | PCA ---
Pt declined to wash up this evening stating she prefers am care. em
[2020-09-20 05:48] LABS: Hemoglobin 7.8 g/dL (12.0-15.0)
[2020-09-20 06:26] LABS: Bedside Glucose 119 mg/dL (70-110)
[2020-09-20 06:45] VITALS: BP 121/54; PULSE 72; RESP 18; TEMP 36.7; O2SAT 90
[2020-09-20] MEDS: Atenolol 25 MG Tablet PO (06:48)
[2020-09-20] MEDS: Losartan Potassium 100 MG Tablet PO (06:48)
[2020-09-20] MEDS: Pantoprazole Sodium 40 MG Tablet PO (06:48)
[2020-09-20] MEDS: APIXABAN 2.5 MG TABLET PO ×2 (06:48→17:13)
[2020-09-20] MEDS: NIFEdipine 30 MG Tablet PO (06:48)
[2020-09-20] MEDS: Polyethylene Glycol 3350 17 GM PACKET PO (06:48)
[2020-09-20] MEDS: Levothyroxine 100 MCG Tablet PO (06:48)
[2020-09-20] MEDS: Acetaminophen 500 MG Tablet 1000 MG PO ×3 (06:48→21:18)
[2020-09-20] MEDS: Sertraline 50 MG Tablet PO (06:48)
[2020-09-20] MEDS: LINAGLIPTIN 5 MG TABLET PO (06:48)
[2020-09-20] MEDS: Menthol/Lanolin/Calamine/Znox 113 GM Tube 1 APPLIC TOPICAL ×2 (06:49→17:14)
[2020-09-20] MEDS: Nystatin Powder 15gm Bottle 1 APPLIC TOPICAL ×2 (06:49→17:14)
[2020-09-20] MEDS: Fluticasone 0.05% 1 SPRAY NASAL.SRY 2 SPRAY NASAL (06:49)
[2020-09-20] MEDS: Multivitamins,Therapeutic Tablet 1 TABLET PO (08:12)
[2020-09-20] MEDS: Magnesium Chloride 64 MG Delay Rel.Tablet 128 MG PO (08:12)
[2020-09-20] MEDS: Glimepiride 1 MG Tablet PO (08:12)
[2020-09-20] MEDS: Ascorbic Acid 500 MG Tablet PO ×2 (08:12→17:14)
[2020-09-20 10:45] LABS: Bedside Glucose 264 mg/dL (70-110)
[2020-09-20] MEDS: Ferrous Sulfate 325 MG Tablet PO (10:51)
--- NOTE | 2020-09-20 11:11 | NURSING ---
Surgical mepilex removed today per order, area well approximated, katherine intact, no active drainage at this time, incision JEREMY
--- NOTE | 2020-09-20 11:53 | PHA.CONS_ITS ---
Progress Note - Pharmacy Subjective: TCU Admission Objective: Allergies adhesive tape Allergy (Intermediate, Verified 04/15/20 16:51) Unknown Sulfa (Sulfonamide Antibiotics) Allergy (Verified 04/15/20 16:51) Rash lisinopril Adverse Reaction (Verified 04/15/20 16:51) cough Current Medications Generic Name Dose Route Start Last Admin Trade Name Tamika PRN Reason Stop Dose Admin Acetaminophen 1,000 mg 09/17/20 22:00 09/20/20 06:48 Acetaminophen 500 Mg Tablet PO 1,000 mg Q8 DEANN Administration Apixaban 2.5 mg 09/17/20 18:00 09/20/20 06:48 Apixaban 2.5 Mg Tablet PO 10/14/20 18:01 2.5 mg BID DEANN Administration Ascorbic Acid 500 mg 09/17/20 17:00 09/20/20 08:12 Ascorbic Acid 500 Mg Tablet PO 500 mg BIDCM DEANN Administration Aspirin 81 mg 10/15/20 08:00 Aspirin E.C. 81 Mg Tablet PO BREAKFAST DEANN Atenolol 25 mg 09/18/20 06:00 09/20/20 06:48 Atenolol 25 Mg Tablet PO 25 mg DAILY DEANN Administration Atorvastatin Calcium 40 mg 09/17/20 22:00 09/19/20 20:17 Atorvastatin Calcium 40 Mg Tablet PO 40 mg QHS DEANN Administration Calamine/Phenol 1 applic 09/17/20 18:00 09/20/20 06:49 Menthol/Lanolin/Calamine/Znox 113 Gm Tube TOPICAL 1 applic BID DEANN Administration Protocol Ferrous Sulfate 325 mg 09/18/20 12:00 09/20/20 10:51 Ferrous Sulfate 325 Mg Tablet PO 325 mg LUNCH DEANN Administration Fluticasone Propionate 2 spray 09/18/20 06:00 09/20/20 06:49 Fluticasone 0.05% 1 [place] Nasal.Sry NASAL 2 spray DAILY DEANN Administration Glimepiride 1 mg 09/18/20 08:00 09/20/20 08:12 Glimepiride 1 Mg Tablet PO 1 mg BREAKFAST DEANN Administration Levothyroxine Sodium 100 mcg 09/18/20 06:00 09/20/20 06:48 Levothyroxine 100 Mcg Tablet PO 100 mcg DAILY DEANN Administration Linagliptin 5 mg 09/18/20 06:00 09/20/20 06:48 Linagliptin 5 Mg Tablet PO 5 mg DAILY DEANN Administration Losartan Potassium 100 mg 09/18/20 06:00 09/20/20 06:48 Losartan Potassium 100 Mg Tablet PO 100 mg DAILY DEANN Administration Magnesium Chloride 128 mg 09/18/20 08:00 09/20/20 08:12 Magnesium Chloride 64 Mg Delay Rel.Tablet PO 128 mg DAILYCM DEANN Administration Multivitamins 1 tablet 09/18/20 08:00 09/20/20 08:12 Multivitamins,Therapeutic Tablet PO 1 tablet BREAKFAST DEANN Administration Nifedipine 30 mg 09/18/20 06:00 09/20/20 06:48 Nifedipine 30 Mg Tablet PO 30 mg DAILY DEANN Administration Nystatin 1 applic 09/17/20 18:00 09/20/20 06:49 Nystatin Powder 15gm Bottle TOPICAL 1 applic BID DEANN Administration Protocol Oxycodone HCl 5 mg 09/17/20 14:55 Oxycodone 5 Mg Tablet PO Q4H PRN PRN Pain Score 6-10 Pantoprazole Sodium 40 mg 09/18/20 06:00 09/20/20 06:48 Pantoprazole Sodium 40 Mg Tablet PO 40 mg DAILY DEANN Administration Polyethylene Glycol 17 gm 09/18/20 06:00 09/20/20 06:48 Polyethylene Glycol 3350 17 Gm Packet PO 17 gm DAILY DEANN Administration Senna/Docusate Sodium 2 tablet 09/19/20 10:00 09/19/20 10:06 Senna/Docusate Sodium 1 Tablet PO 2 tablet QODAY DEANN Administration Sertraline HCl 50 mg 09/18/20 06:00 09/20/20 06:48 Sertraline 50 Mg Tablet PO 50 mg DAILY DEANN Administration Sodium Chloride 10 - 40 ml 09/17/20 13:37 09/18/20 09:11 0.9% Saline Lock 10 Ml Syringe IV 10 ml UD PRN Administration SALINE FLUSH Tuberculin PPD 0.1 ml 09/25/20 10:00 Tuberculin,Purif.Prot.Deriv. 50 Tu/Ml Vial ID 09/25/20 10:01 X1 ONE Problem List (Last Updated 09/17/20 @ 14:[address] Noe Wong MD) Bilateral carotid artery stenosis (Acute) Hypomagnesemia (Acute) Body mass index (BMI) greater than 40 (Acute) Iron deficiency anemia (Acute) Hypothyroidism (Acute) Hyperlipidemia (Acute) GERD (gastroesophageal reflux disease) (Acute) Hypertension (Chronic) Diabetes mellitus (Acute) Depression (Acute) BPPV (benign paroxysmal positional vertigo) (Acute) Aphasia (Acute) Stroke (Acute) Closed left hip fracture (Acute) Debility (Acute) Vital Signs Temp Pulse Resp BP Pulse Ox 98.0 F 72 18 121/54 H 90 09/20/20 06:45 09/20/20 06:45 09/20/20 06:45 09/20/20 06:45 09/20/20 06:45 Oxygen Flow Rate (L/min) 3 Oxygen Delivery Method Room Air Weight: 99.79 kg Body Mass Index (BMI) 43.0 Sodium 140 mmol/L (136-145) 09/18/20 07:35 Potassium 4.3 mmol/L (3.5-5.1) 09/18/20 07:35 Chloride 108 mmol/L (98-107) H 09/18/20 07:35 Carbon Dioxide 28.0 mmol/L (21.0-32.0) 09/18/20 07:35 Anion Gap 4 (5-15) L 09/18/20 07:35 BUN 40 mg/dL (7-18) H 09/18/20 07:35 Creatinine 1.27 mg/dL (0.55-1.02) H 09/18/20 07:35 Est GFR (MDRD) Af Amer 53 mL/min (>60) L 09/18/20 07:35 Est GFR (MDRD) Non-Af 44 mL/min (>60) L 09/18/20 07:35 BUN/Creatinine Ratio 31.5 RATIO (10-20) H 09/18/20 07:35 Glucose 107 mg/dL (74-106) H 09/18/20 07:35 Assessment/Plan: 1. Pain: acetaminophen 1000mg PO Q8 and oxycodone 5mg PO Q4H PRN pain 6-01/09. Please continue to monitor for S/S of increased pain and PRN usage. 2. DVT prophylaxis/stroke: apixaban 2.5mg PO BID thru 10/14/20 for DVT prophylaxis then aspirin 81mg PO daily starting 10/15/20 for stoke. Please continue to monitor for S/S of bleeding/DVT and hemoglobin (last 7.8g/dL). 3. Hypertension: atenolol 25mg PO daily, losartan 100mg PO daily and nifedipine 30mg PO daily. Please continue to monitor BP (last 121/54), HR (last 72), potassium 4.3mmol/L) and renal function. 4. Hyperlipidemia: atorvastatin 40mg PO QHS. Please continue to monitor lipid panel (last 10/02/19) and for muscle pain. 5. Iron deficiency anemia: ferrous sulfate 324mg PO lunch. Please continue to monitor hemoglobin and for dark stools. 6. Diabetes mellitus: glimepiride 1mg PO daily and linagliptin 5mg PO daily. Please continue to monitor hemoglobin A1c (last 5.7% 09/13/20) and blood glucose (last 119mg/dL). 7. Hypothyroidism: levothyroxine 100mcg PO daily. Please continue to monitor TSH (last 09/13/20) and for S/S of hypothyroidism. 8. GERD: pantoprazole 40mg PO daily. Please continue to monitor for S/S of GERD and diarrhea. 9. Allergic rhinitis: fluticasone 0.05% nasal spray 2sprays nasal daily. Please continue to monitor for allergy symptoms. 10. Nutrition/vitamin C deficiency/hypomagnesemia: multivitamin 1T PO daily, ascorbic acid 500mg PO BIDCM, and magnesium chloride 128mg PO daily. Please continue to monitor magnesium levels (last 2.2mg/dL). Psychotropic Medications: 1. Depression: sertraline 50mg PO daily. Please see physician note regarding GDR. Please continue to monitor for GI side effects. Unnecessary Medications: None Bowel Regimen: Miralax 17gm PO daily and senna/docusate 2T PO QODay. Please continue to monitor for constipation. Date of Note:: 09/20/20
--- NOTE | 2020-09-20 14:46 | NURSING ---
Addendum entered by Hailey Montana 09/20/20 18:30: prune juice and butter ineffective Original Note: Pt trying to have bowel movement, hard stool noted around anus but could not expel, no prn stool softeners ordered at this time. Message left for Dr. Wong, warm prune juice with butter given at this time.
[2020-09-20 15:19] VITALS: BP 116/49; PULSE 61; RESP 18; TEMP 36.2; O2SAT 97
[2020-09-20 17:05] LABS: Bedside Glucose 186 mg/dL (70-110)
[2020-09-20] MEDS: Senna/Docusate Sodium 1 Tablet 2 TABLET PO (17:14)
--- NOTE | 2020-09-20 17:33 | NURSING ---
Clarified code status with patient, to ensure she is agreeable to her current code status. pt stated she only wants to be a DNRCC. She further stated that she thought that she had completed paperwork in the past but apparently did not.
--- NOTE | 2020-09-20 18:30 | NURSING ---
Soap Suds enema given per order, will monitor effect
[2020-09-20] MEDS: Atorvastatin Calcium 40 MG Tablet PO (21:18)
[2020-09-21 07:15] VITALS: BP 145/51; PULSE 74; RESP 16; TEMP 36.5; O2SAT 92
[2020-09-21] MEDS: Menthol/Lanolin/Calamine/Znox 113 GM Tube 1 APPLIC TOPICAL ×2 (07:17→16:38)
[2020-09-21] MEDS: Fluticasone 0.05% 1 SPRAY NASAL.SRY 2 SPRAY NASAL (07:18)
[2020-09-21] MEDS: Polyethylene Glycol 3350 17 GM PACKET PO (07:19)
[2020-09-21] MEDS: Nystatin Powder 15gm Bottle 1 APPLIC TOPICAL ×2 (07:20→16:37)
[2020-09-21] MEDS: Acetaminophen 500 MG Tablet 1000 MG PO ×3 (07:21→21:17)
[2020-09-21] MEDS: APIXABAN 2.5 MG TABLET PO ×2 (07:21→16:37)
[2020-09-21] MEDS: Levothyroxine 100 MCG Tablet PO (07:21)
[2020-09-21] MEDS: LINAGLIPTIN 5 MG TABLET PO (07:21)
[2020-09-21] MEDS: Atenolol 25 MG Tablet PO (07:21)
[2020-09-21] MEDS: Sertraline 50 MG Tablet PO (07:21)
[2020-09-21] MEDS: Magnesium Chloride 64 MG Delay Rel.Tablet 128 MG PO (07:22)
[2020-09-21] MEDS: Pantoprazole Sodium 40 MG Tablet PO (07:22)
[2020-09-21] MEDS: NIFEdipine 30 MG Tablet PO (07:22)
[2020-09-21] MEDS: Losartan Potassium 100 MG Tablet PO (07:22)
[2020-09-21] MEDS: Ascorbic Acid 500 MG Tablet PO ×2 (07:23→16:34)
[2020-09-21] MEDS: Senna/Docusate Sodium 1 Tablet 2 TABLET PO ×2 (07:28→09:55)
[2020-09-21 08:38] LABS: Bedside Glucose 92 mg/dL (70-110)
[2020-09-21 08:38] LABS: Bedside Glucose 134 mg/dL (70-110)
[2020-09-21 09:42] VITALS: O2SAT 92
[2020-09-21] MEDS: Glimepiride 1 MG Tablet PO (09:56)
[2020-09-21] MEDS: Multivitamins,Therapeutic Tablet 1 TABLET PO (09:57)
--- NOTE | 2020-09-21 10:11 | NURSING ---
Pt is positive for Covid PCR, asymptomatic, isolation precautions in place, all care will be completed in room
[2020-09-21 10:50] LABS: Bedside Glucose 191 mg/dL (70-110)
[2020-09-21] MEDS: Ferrous Sulfate 325 MG Tablet PO (11:46)
--- NOTE | 2020-09-21 12:28 | NURSING ---
[facility] called and would like pt's katherine removed 09/27/20 and follow up in 2 weeks if pt able d/t health stated that 3-4 weeks would be okay.
--- NOTE | 2020-09-21 15:14 | NURSING ---
Resident and sister notified of resident testing positive for COVID.
[2020-09-21 15:20] VITALS: BP 107/38; PULSE 64; RESP 18; TEMP 36.8; O2SAT 96
[2020-09-21 15:26] VITALS: PULSE 64; RESP 18
[2020-09-21 16:46] LABS: Bedside Glucose 145 mg/dL (70-110)
[2020-09-21] MEDS: Atorvastatin Calcium 40 MG Tablet PO (21:17)
[2020-09-21 22:21] LABS: Bedside Glucose 146 mg/dL (70-110)
[2020-09-22] MEDS: Polyethylene Glycol 3350 17 GM PACKET PO (05:13)
[2020-09-22] MEDS: Menthol/Lanolin/Calamine/Znox 113 GM Tube 1 APPLIC TOPICAL ×2 (05:13→17:23)
[2020-09-22] MEDS: Losartan Potassium 100 MG Tablet PO (05:15)
[2020-09-22] MEDS: Nystatin Powder 15gm Bottle 1 APPLIC TOPICAL ×2 (05:15→17:23)
[2020-09-22] MEDS: APIXABAN 2.5 MG TABLET PO ×2 (05:15→17:23)
[2020-09-22] MEDS: NIFEdipine 30 MG Tablet PO (05:15)
[2020-09-22] MEDS: Pantoprazole Sodium 40 MG Tablet PO (05:16)
[2020-09-22] MEDS: Senna/Docusate Sodium 1 Tablet 2 TABLET PO (05:16)
[2020-09-22] MEDS: Levothyroxine 100 MCG Tablet PO (05:16)
[2020-09-22] MEDS: Atenolol 25 MG Tablet PO (05:17)
[2020-09-22] MEDS: Acetaminophen 500 MG Tablet 1000 MG PO ×3 (05:17→21:17)
[2020-09-22] MEDS: Sertraline 50 MG Tablet PO (05:17)
[2020-09-22] MEDS: LINAGLIPTIN 5 MG TABLET PO (05:17)
[2020-09-22] MEDS: Fluticasone 0.05% 1 SPRAY NASAL.SRY 2 SPRAY NASAL (05:18)
[2020-09-22 05:31] VITALS: BP 141/71; PULSE 73; RESP 12; TEMP 36.9
--- NOTE | 2020-09-22 05:42 | NURSING ---
pT REMAINS IN ISOLATION FOR POSITIVE COVID TEST. States her pain is managed well with scheduled tylenol and polar care.
[2020-09-22 05:43] LABS: Hematocrit 24.4 % (37-47); Hemoglobin 7.6 g/dL (12.0-15.0)
[2020-09-22 06:46] LABS: Bedside Glucose 107 mg/dL (70-110)
[2020-09-22] MEDS: Multivitamins,Therapeutic Tablet 1 TABLET PO (08:12)
[2020-09-22] MEDS: Glimepiride 1 MG Tablet PO (08:12)
[2020-09-22] MEDS: Ascorbic Acid 500 MG Tablet PO ×2 (08:13→17:22)
[2020-09-22] MEDS: Magnesium Chloride 64 MG Delay Rel.Tablet 128 MG PO (08:13)
--- NOTE | 2020-09-22 11:01 | NURSING ---
PT REMAINS IN ISOLATION FOR POSITIVE COVID TEST
--- NOTE | 2020-09-22 11:02 | NURSING ---
Sister updated today during care plan meeting
[2020-09-22 11:13] VITALS: PULSE 68; RESP 16
--- NOTE | 2020-09-22 11:27 | CASEMGMT ---
Plan of Care meeting held with pt in attendance and sister Pat on conference call. Pt is participating in PT/OT and progressing well. Pt is aware that insurance updated on 09/21/20 and continued stay review is still pending and continued stay is not guarentted. Pt lives at home alone and would like to return to apartment if possible. Pt is understanding that this may not be the next step from TCU. Will continue with treatment plan at this time and SW will continue to follow for support and discharge planning. EBONIE Ramirez
[2020-09-22] MEDS: Ferrous Sulfate 325 MG Tablet PO (11:38)
[2020-09-22 12:00] LABS: Bedside Glucose 179 mg/dL (70-110)
[2020-09-22 17:17] LABS: Bedside Glucose 125 mg/dL (70-110)
[2020-09-22 17:19] VITALS: BP 129/50; PULSE 72; RESP 18; TEMP 37.1; O2SAT 96
[2020-09-22] MEDS: Atorvastatin Calcium 40 MG Tablet PO (21:17)
[2020-09-22 21:55] LABS: Bedside Glucose 161 mg/dL (70-110)
--- NOTE | 2020-09-22 22:00 | NURSING ---
Isolation precautions maintained for positive covid test. Patient refuses washing up before bed, says she will wash up in the morning. She reports pain is 0/10 and has been well controlled with Tylenol and polar care.
--- NOTE | 2020-09-23 02:00 | NURSING ---
Pt resting with eyes closed. Respers unlabored. No signs of distress.
--- NOTE | 2020-09-23 04:06 | NURSING ---
easily aroused. denies c/o pain. isolation maintained.
[2020-09-23] MEDS: Fluticasone 0.05% 1 SPRAY NASAL.SRY 2 SPRAY NASAL (04:33)
[2020-09-23] MEDS: APIXABAN 2.5 MG TABLET PO ×2 (04:33→17:46)
[2020-09-23] MEDS: LINAGLIPTIN 5 MG TABLET PO (04:34)
[2020-09-23] MEDS: Acetaminophen 500 MG Tablet 1000 MG PO ×3 (04:34→22:01)
[2020-09-23] MEDS: Pantoprazole Sodium 40 MG Tablet PO (04:35)
[2020-09-23] MEDS: Menthol/Lanolin/Calamine/Znox 113 GM Tube 1 APPLIC TOPICAL ×2 (04:35→19:08)
[2020-09-23] MEDS: Nystatin Powder 15gm Bottle 1 APPLIC TOPICAL ×2 (04:35→19:08)
[2020-09-23] MEDS: Sertraline 50 MG Tablet PO (04:36)
[2020-09-23] MEDS: Levothyroxine 100 MCG Tablet PO (04:36)
[2020-09-23] MEDS: Losartan Potassium 100 MG Tablet PO (04:42)
[2020-09-23] MEDS: NIFEdipine 30 MG Tablet PO (04:42)
[2020-09-23] MEDS: Atenolol 25 MG Tablet PO (04:43)
[2020-09-23 04:44] VITALS: BP 137/53; PULSE 70; RESP 18; O2SAT 96
[2020-09-23 07:00] LABS: Bedside Glucose 108 mg/dL (70-110)
[2020-09-23] MEDS: Magnesium Chloride 64 MG Delay Rel.Tablet 128 MG PO (07:54)
[2020-09-23] MEDS: Ascorbic Acid 500 MG Tablet PO ×2 (07:54→17:46)
[2020-09-23] MEDS: Multivitamins,Therapeutic Tablet 1 TABLET PO (07:55)
[2020-09-23] MEDS: Glimepiride 1 MG Tablet PO (07:55)
[2020-09-23] MEDS: Ferrous Sulfate 325 MG Tablet PO (11:26)
[2020-09-23 11:35] LABS: Bedside Glucose 162 mg/dL (70-110)
[2020-09-23 11:52] VITALS: PULSE 71; RESP 16; O2SAT 96
--- NOTE | 2020-09-23 15:25 | NURSING ---
pt remains in isolation for positive covid, all care remains in room
[2020-09-23 18:20] LABS: Bedside Glucose 144 mg/dL (70-110)
[2020-09-23 18:30] VITALS: BP 109/40; PULSE 61; RESP 18; TEMP 36.6; O2SAT 94
[2020-09-23 22:01] LABS: Bedside Glucose 137 mg/dL (70-110)
[2020-09-23] MEDS: Atorvastatin Calcium 40 MG Tablet PO (22:01)
[2020-09-24] MEDS: Menthol/Lanolin/Calamine/Znox 113 GM Tube 1 APPLIC TOPICAL ×3 (05:22→21:17)
[2020-09-24] MEDS: APIXABAN 2.5 MG TABLET PO ×2 (05:23→18:12)
[2020-09-24] MEDS: Levothyroxine 100 MCG Tablet PO (05:23)
[2020-09-24] MEDS: LINAGLIPTIN 5 MG TABLET PO (05:23)
[2020-09-24] MEDS: Sertraline 50 MG Tablet PO (05:23)
[2020-09-24] MEDS: Acetaminophen 500 MG Tablet 1000 MG PO ×3 (05:23→21:16)
[2020-09-24] MEDS: Atenolol 25 MG Tablet PO (05:23)
[2020-09-24] MEDS: Pantoprazole Sodium 40 MG Tablet PO (05:23)
[2020-09-24] MEDS: NIFEdipine 30 MG Tablet PO (05:23)
[2020-09-24] MEDS: Losartan Potassium 100 MG Tablet PO (05:23)
[2020-09-24] MEDS: Fluticasone 0.05% 1 SPRAY NASAL.SRY 2 SPRAY NASAL (05:24)
[2020-09-24] MEDS: Nystatin Powder 15gm Bottle 1 APPLIC TOPICAL ×2 (05:24→18:15)
[2020-09-24 06:03] LABS: Hematocrit 25.6 % (37-47); Hemoglobin 7.9 g/dL (12.0-15.0)
[2020-09-24 07:01] VITALS: BP 106/44; PULSE 60; RESP 16; TEMP 36.6; O2SAT 97
[2020-09-24 07:05] LABS: Bedside Glucose 143 mg/dL (70-110)
[2020-09-24] MEDS: Magnesium Chloride 64 MG Delay Rel.Tablet 128 MG PO (08:11)
[2020-09-24] MEDS: Ascorbic Acid 500 MG Tablet PO ×2 (08:11→18:13)
[2020-09-24] MEDS: Glimepiride 1 MG Tablet PO (08:12)
[2020-09-24] MEDS: Multivitamins,Therapeutic Tablet 1 TABLET PO (08:12)
[2020-09-24 11:45] LABS: Bedside Glucose 191 mg/dL (70-110)
[2020-09-24] MEDS: Ferrous Sulfate 325 MG Tablet PO (12:09)
--- NOTE | 2020-09-24 13:20 | NURSING ---
Addendum entered by Concepcion Abebe 09/24/20 18:16: pt remains in covid isolation Original Note: pt speaks with sister daily for updates
[2020-09-24 14:56] VITALS: PULSE 68; RESP 18; O2SAT 96
[2020-09-24 18:00] LABS: Bedside Glucose 144 mg/dL (70-110)
[2020-09-24] MEDS: Atorvastatin Calcium 40 MG Tablet PO (21:17)
[2020-09-24 22:41] LABS: Bedside Glucose 59 mg/dL (70-110)
[2020-09-24 22:41] LABS: Bedside Glucose 104 mg/dL (70-110)
[2020-09-24 23:11] VITALS: PULSE 66; RESP 14; O2SAT 98
[2020-09-25] MEDS: Acetaminophen 500 MG Tablet 1000 MG PO ×3 (06:13→22:45)
[2020-09-25] MEDS: Senna/Docusate Sodium 1 Tablet 2 TABLET PO ×2 (06:13→17:00)
[2020-09-25] MEDS: Sertraline 50 MG Tablet PO (06:14)
[2020-09-25] MEDS: Levothyroxine 100 MCG Tablet PO (06:14)
[2020-09-25] MEDS: LINAGLIPTIN 5 MG TABLET PO (06:14)
[2020-09-25] MEDS: Fluticasone 0.05% 1 SPRAY NASAL.SRY 2 SPRAY NASAL (06:15)
[2020-09-25] MEDS: APIXABAN 2.5 MG TABLET PO ×2 (06:15→17:00)
[2020-09-25] MEDS: Pantoprazole Sodium 40 MG Tablet PO (06:15)
[2020-09-25] MEDS: Nystatin Powder 15gm Bottle 1 APPLIC TOPICAL ×2 (06:15→16:55)
[2020-09-25 06:26] VITALS: BP 123/56; PULSE 74; RESP 18; TEMP 36.8; O2SAT 97
[2020-09-25] MEDS: Losartan Potassium 100 MG Tablet PO (06:41)
[2020-09-25] MEDS: Atenolol 25 MG Tablet PO (06:42)
[2020-09-25] MEDS: NIFEdipine 30 MG Tablet PO (06:42)
[2020-09-25 06:46] LABS: Bedside Glucose 128 mg/dL (70-110)
[2020-09-25] MEDS: Glimepiride 1 MG Tablet PO (07:48)
[2020-09-25] MEDS: Ascorbic Acid 500 MG Tablet PO ×2 (07:49→17:00)
[2020-09-25] MEDS: Magnesium Chloride 64 MG Delay Rel.Tablet 128 MG PO (07:49)
[2020-09-25] MEDS: Multivitamins,Therapeutic Tablet 1 TABLET PO (07:49)
[2020-09-25 07:57] LABS: Absolute Lymphocyte Count 1.47 X10^3/uL (0.83-4.51); Basophil# 0.02 X10^3/uL; Basophil% 0.2 % (0-1); Eosinophil# 0.44 X10^3/uL; Eosinophils% 3.4 % (0-5); Hematocrit 26.2 % (37-47); Hemoglobin 8.1 g/dL (12.0-15.0); Lymphocyte # 1.47 X10^3/ul (0.83-4.51); Lymphocyte % 11.5 % (19-41); Mean Corp Hgb Conc 30.9 g/dL (32-36); Mean Corpuscular Hgb 29.7 pg (27.0-32.0); Mean Platelet Vol. 9.5 fl (6.2-12.0); Monocyte# 0.77 X10^3/uL; NRBC Flagged by Analyzer 0 % (0-5); Neutrophil # 10.01 X10^3/uL (2.7-7.7); Neutrophil % 78.3 % (47-70); Platelet Count 435 K/mm3 (150-450); RBC Distribution Width CV 13.8 % (11.6-14.6); RBC Distribution Width SD 48.1 fl (35.1-43.9); Red Blood Count 2.73 M/mm3 (4.2-5.4); White Blood Count 12.8 K/mm3 (4.4-11.0)
[2020-09-25 08:20] LABS: Anion Gap 7 (5-15); BUN 33 mg/dL (7-18); BUN/Creat Ratio 27.3 RATIO (10-20); Calcium,Total 8.9 mg/dL (8.5-10.1); Chloride 110 mmol/L (98-107); Creatinine, Serum 1.21 mg/dL (0.55-1.02); EST Glomerular Filtration Rate 46 mL/min (>60); Est Glom Filt Rate - Afr Amer 56 mL/min (>60); Estimated Creatinine Clearance 28.41 ml/min; Glucose 127 mg/dL (74-106); Potassium 4.4 mmol/L (3.5-5.1); Sodium Level 141 mmol/L (136-145)
[2020-09-25] MEDS: Tuberculin,Purif.prot.deriv. 50 TU/ML Vial 0.1 ML ID (11:23)
[2020-09-25] MEDS: Ferrous Sulfate 325 MG Tablet PO (11:24)
[2020-09-25 11:40] LABS: Bedside Glucose 196 mg/dL (70-110)
--- NOTE | 2020-09-25 14:39 | NURSING ---
Isolation precautions maintained. All care provided in room.
[2020-09-25] MEDS: Menthol/Lanolin/Calamine/Znox 113 GM Tube 1 APPLIC TOPICAL (16:54)
[2020-09-25] MEDS: Atorvastatin Calcium 40 MG Tablet PO (22:44)
[2020-09-25 23:20] VITALS: RESP 16
[2020-09-26 00:20] LABS: Bedside Glucose 88 mg/dL (70-110)
[2020-09-26] MEDS: Losartan Potassium 100 MG Tablet PO (06:23)
[2020-09-26] MEDS: Menthol/Lanolin/Calamine/Znox 113 GM Tube 1 APPLIC TOPICAL ×2 (06:23→17:08)
[2020-09-26] MEDS: Fluticasone 0.05% 1 SPRAY NASAL.SRY 2 SPRAY NASAL (06:24)
[2020-09-26] MEDS: APIXABAN 2.5 MG TABLET PO ×2 (06:24→17:08)
[2020-09-26] MEDS: Nystatin Powder 15gm Bottle 1 APPLIC TOPICAL ×2 (06:24→17:09)
[2020-09-26] MEDS: Senna/Docusate Sodium 1 Tablet 2 TABLET PO (06:25)
[2020-09-26] MEDS: Levothyroxine 100 MCG Tablet PO (06:25)
[2020-09-26] MEDS: Pantoprazole Sodium 40 MG Tablet PO (06:25)
[2020-09-26] MEDS: NIFEdipine 30 MG Tablet PO (06:25)
[2020-09-26] MEDS: Atenolol 25 MG Tablet PO (06:26)
[2020-09-26] MEDS: Sertraline 50 MG Tablet PO (06:26)
[2020-09-26] MEDS: Acetaminophen 500 MG Tablet 1000 MG PO ×3 (06:26→22:45)
[2020-09-26] MEDS: LINAGLIPTIN 5 MG TABLET PO (06:26)
[2020-09-26 07:00] VITALS: BP 121/54; PULSE 74; RESP 16; TEMP 36.2; O2SAT 97
[2020-09-26] MEDS: Multivitamins,Therapeutic Tablet 1 TABLET PO (07:30)
[2020-09-26] MEDS: Glimepiride 1 MG Tablet PO (07:30)
[2020-09-26] MEDS: Ascorbic Acid 500 MG Tablet PO ×2 (07:30→17:08)
[2020-09-26] MEDS: Magnesium Chloride 64 MG Delay Rel.Tablet 128 MG PO (07:30)
[2020-09-26] MEDS: Ferrous Sulfate 325 MG Tablet PO (11:39)
[2020-09-26 11:41] LABS: Bedside Glucose 139 mg/dL (70-110)
[2020-09-26 17:35] VITALS: BP 115/79; PULSE 68; RESP 16; TEMP 36.6; O2SAT 98
[2020-09-26 17:35] LABS: Bedside Glucose 172 mg/dL (70-110)
[2020-09-26 21:16] LABS: Bedside Glucose 105 mg/dL (70-110)
[2020-09-26] MEDS: Atorvastatin Calcium 40 MG Tablet PO (22:45)
[2020-09-26 23:00] VITALS: RESP 16
[2020-09-27 06:45] VITALS: O2SAT 98
[2020-09-27 06:46] LABS: Bedside Glucose 122 mg/dL (70-110)
[2020-09-27] MEDS: Losartan Potassium 100 MG Tablet PO (06:46)
[2020-09-27] MEDS: Menthol/Lanolin/Calamine/Znox 113 GM Tube 1 APPLIC TOPICAL ×2 (06:46→17:53)
[2020-09-27] MEDS: APIXABAN 2.5 MG TABLET PO ×2 (06:47→17:53)
[2020-09-27] MEDS: Fluticasone 0.05% 1 SPRAY NASAL.SRY 2 SPRAY NASAL (06:47)
[2020-09-27] MEDS: Pantoprazole Sodium 40 MG Tablet PO (06:48)
[2020-09-27] MEDS: Nystatin Powder 15gm Bottle 1 APPLIC TOPICAL ×2 (06:48→17:53)
[2020-09-27] MEDS: NIFEdipine 30 MG Tablet PO (06:48)
[2020-09-27] MEDS: Atenolol 25 MG Tablet PO (06:49)
[2020-09-27] MEDS: Levothyroxine 100 MCG Tablet PO (06:49)
[2020-09-27] MEDS: LINAGLIPTIN 5 MG TABLET PO (06:49)
[2020-09-27] MEDS: Acetaminophen 500 MG Tablet 1000 MG PO ×3 (06:50→22:09)
[2020-09-27] MEDS: Sertraline 50 MG Tablet PO (06:50)
[2020-09-27] MEDS: Ascorbic Acid 500 MG Tablet PO ×2 (08:14→17:53)
[2020-09-27] MEDS: Glimepiride 1 MG Tablet PO (08:14)
[2020-09-27] MEDS: Multivitamins,Therapeutic Tablet 1 TABLET PO (08:14)
[2020-09-27] MEDS: Magnesium Chloride 64 MG Delay Rel.Tablet 128 MG PO (08:14)
[2020-09-27] MEDS: Ferrous Sulfate 325 MG Tablet PO (11:50)
[2020-09-27 14:52] VITALS: PULSE 68; RESP 16
[2020-09-27 19:00] VITALS: BP 123/51; PULSE 67; RESP 18; TEMP 36.3; O2SAT 99
--- NOTE | 2020-09-27 19:08 | NURSING ---
katherine (9) removed from Left hip, no drainage or redness, approximated
[2020-09-27] MEDS: Atorvastatin Calcium 40 MG Tablet PO (22:09)
--- NOTE | 2020-09-27 22:35 | NURSING ---
Covid isolation precautions maintained, all care provided in room. Patient resting comfortably in bed, she denies any pain or needs at this time.
[2020-09-28 06:45] VITALS: O2SAT 96
[2020-09-28] MEDS: Menthol/Lanolin/Calamine/Znox 113 GM Tube 1 APPLIC TOPICAL ×2 (07:02→17:33)
[2020-09-28] MEDS: Acetaminophen 500 MG Tablet 1000 MG PO ×3 (07:03→21:58)
[2020-09-28] MEDS: APIXABAN 2.5 MG TABLET PO ×2 (07:03→17:32)
[2020-09-28] MEDS: Atenolol 25 MG Tablet PO (07:03)
[2020-09-28] MEDS: Sertraline 50 MG Tablet PO (07:03)
[2020-09-28] MEDS: Pantoprazole Sodium 40 MG Tablet PO (07:03)
[2020-09-28] MEDS: LINAGLIPTIN 5 MG TABLET PO (07:03)
[2020-09-28] MEDS: Levothyroxine 100 MCG Tablet PO (07:03)
[2020-09-28] MEDS: NIFEdipine 30 MG Tablet PO (07:04)
[2020-09-28] MEDS: Senna/Docusate Sodium 1 Tablet 2 TABLET PO ×2 (07:04→17:32)
[2020-09-28] MEDS: Nystatin Powder 15gm Bottle 1 APPLIC TOPICAL ×2 (07:04→17:33)
[2020-09-28] MEDS: Fluticasone 0.05% 1 SPRAY NASAL.SRY 2 SPRAY NASAL (07:04)
[2020-09-28] MEDS: Losartan Potassium 100 MG Tablet PO (07:04)
[2020-09-28 07:26] VITALS: BP 126/54; PULSE 67; RESP 20; TEMP 36.4; O2SAT 96
[2020-09-28] MEDS: Multivitamins,Therapeutic Tablet 1 TABLET PO (07:57)
[2020-09-28] MEDS: Magnesium Chloride 64 MG Delay Rel.Tablet 128 MG PO (07:57)
[2020-09-28] MEDS: Glimepiride 1 MG Tablet PO (07:57)
--- NOTE | 2020-09-28 08:36 | NURSING ---
pt remains in isolation for covid, maintenance in room to work on tv controller. Remote given to patient, she can now change channels. call light works but voice does not come through to NS. Maintenance will need to look into the wiring in wall when patient is DC'd
[2020-09-28 08:52] VITALS: PULSE 62; RESP 16
[2020-09-28] MEDS: Ascorbic Acid 500 MG Tablet PO ×2 (09:03→17:32)
[2020-09-28] MEDS: Ferrous Sulfate 325 MG Tablet PO (11:47)
[2020-09-28 12:01] LABS: Bedside Glucose 145 mg/dL (70-110)
--- NOTE | 2020-09-28 12:43 | NURSING ---
pt remains in covid isolation precautions, all care provided in room.
[2020-09-28 16:00] VITALS: BP 136/58; PULSE 61; RESP 16; TEMP 36.6; O2SAT 99
--- NOTE | 2020-09-28 21:09 | NURSING ---
Pt remains in COVID isolation precautions, all care provided in room
[2020-09-28] MEDS: Atorvastatin Calcium 40 MG Tablet PO (21:58)
[2020-09-29] MEDS: Senna/Docusate Sodium 1 Tablet 2 TABLET PO (05:00)
[2020-09-29] MEDS: Menthol/Lanolin/Calamine/Znox 113 GM Tube 1 APPLIC TOPICAL ×2 (05:00→17:01)
[2020-09-29] MEDS: Losartan Potassium 100 MG Tablet PO (05:01)
[2020-09-29] MEDS: Nystatin Powder 15gm Bottle 1 APPLIC TOPICAL ×2 (05:01→17:01)
[2020-09-29] MEDS: APIXABAN 2.5 MG TABLET PO ×2 (05:01→17:01)
[2020-09-29] MEDS: Pantoprazole Sodium 40 MG Tablet PO (05:02)
[2020-09-29] MEDS: LINAGLIPTIN 5 MG TABLET PO (05:02)
[2020-09-29] MEDS: NIFEdipine 30 MG Tablet PO (05:02)
[2020-09-29] MEDS: Levothyroxine 100 MCG Tablet PO (05:02)
[2020-09-29] MEDS: Sertraline 50 MG Tablet PO (05:03)
[2020-09-29] MEDS: Atenolol 25 MG Tablet PO (05:03)
[2020-09-29] MEDS: Fluticasone 0.05% 1 SPRAY NASAL.SRY 2 SPRAY NASAL (05:05)
[2020-09-29] MEDS: Acetaminophen 500 MG Tablet 1000 MG PO ×3 (05:05→21:42)
[2020-09-29 05:18] VITALS: BP 131/52; PULSE 72; RESP 14; TEMP 36.3
--- NOTE | 2020-09-29 05:21 | NURSING ---
pt awake, alert and oriented. Able to make needs known. Assisted to bathroom. Walking was slow but steady, with good safety awareness. Medications taken without difficulty.
[2020-09-29 06:40] LABS: Bedside Glucose 111 mg/dL (70-110)
[2020-09-29 08:03] VITALS: O2SAT 95
[2020-09-29] MEDS: Multivitamins,Therapeutic Tablet 1 TABLET PO (08:05)
[2020-09-29] MEDS: Glimepiride 1 MG Tablet PO (08:05)
[2020-09-29] MEDS: Magnesium Chloride 64 MG Delay Rel.Tablet 128 MG PO (08:05)
[2020-09-29] MEDS: Ascorbic Acid 500 MG Tablet PO ×2 (08:05→17:01)
--- NOTE | 2020-09-29 08:24 | MDS.RN ---
Information for the mds was obtained from review of the clinical record, interview of resident, staff, and direct observation of resident's care.
[2020-09-29 10:00] VITALS: PULSE 60; RESP 18; O2SAT 99
[2020-09-29] MEDS: Ferrous Sulfate 325 MG Tablet PO (11:50)
--- NOTE | 2020-09-29 13:11 | NURSING ---
Patient remains in Covid isolation precautions, all care provided in room.
[2020-09-29 14:29] VITALS: BP 133/51; PULSE 68; RESP 18; TEMP 36.2; O2SAT 99
[2020-09-29] MEDS: Atorvastatin Calcium 40 MG Tablet PO (21:42)
--- NOTE | 2020-09-29 22:20 | NURSING ---
Covid precaution maintained. Pt polar care ice changed. Pt asst to her night gown. Refused hs care at this time.
--- NOTE | 2020-09-30 01:29 | NURSING ---
Pt asst to bathroom w walker. Asst back to bed. denies any complaints
[2020-09-30] MEDS: Losartan Potassium 100 MG Tablet PO (06:05)
[2020-09-30] MEDS: APIXABAN 2.5 MG TABLET PO ×2 (06:05→16:45)
[2020-09-30] MEDS: Acetaminophen 500 MG Tablet 1000 MG PO ×3 (06:05→21:30)
[2020-09-30] MEDS: Sertraline 50 MG Tablet PO (06:05)
[2020-09-30] MEDS: Levothyroxine 100 MCG Tablet PO (06:05)
[2020-09-30] MEDS: Pantoprazole Sodium 40 MG Tablet PO (06:05)
[2020-09-30] MEDS: NIFEdipine 30 MG Tablet PO (06:05)
[2020-09-30] MEDS: Atenolol 25 MG Tablet PO (06:05)
[2020-09-30] MEDS: LINAGLIPTIN 5 MG TABLET PO (06:05)
[2020-09-30] MEDS: Menthol/Lanolin/Calamine/Znox 113 GM Tube 1 APPLIC TOPICAL ×2 (06:06→16:47)
[2020-09-30 06:15] VITALS: BP 122/40; PULSE 64; RESP 18; TEMP 36.7; O2SAT 95
[2020-09-30] MEDS: Nystatin Powder 15gm Bottle 1 APPLIC TOPICAL ×2 (06:27→16:46)
[2020-09-30] MEDS: Fluticasone 0.05% 1 SPRAY NASAL.SRY 2 SPRAY NASAL (06:27)
[2020-09-30 06:40] LABS: Bedside Glucose 96 mg/dL (70-110)
[2020-09-30 07:06] VITALS: O2SAT 97
[2020-09-30] MEDS: Magnesium Chloride 64 MG Delay Rel.Tablet 128 MG PO (08:11)
[2020-09-30] MEDS: Ascorbic Acid 500 MG Tablet PO ×2 (08:12→16:45)
[2020-09-30] MEDS: Glimepiride 1 MG Tablet PO (08:12)
[2020-09-30] MEDS: Multivitamins,Therapeutic Tablet 1 TABLET PO (08:12)
--- NOTE | 2020-09-30 08:24 | NURSING ---
patient remains in isolation for covid precautions. Pt's remote does not turn on\off lights at this time
[2020-09-30] MEDS: Ferrous Sulfate 325 MG Tablet PO (12:08)
[2020-09-30 13:00] VITALS: PULSE 55; RESP 18; O2SAT 99
[2020-09-30 17:51] VITALS: BP 114/50; PULSE 62; RESP 18; TEMP 36.7; O2SAT 99
[2020-09-30] MEDS: Atorvastatin Calcium 40 MG Tablet PO (21:31)
--- NOTE | 2020-09-30 22:00 | NURSING ---
Patient denied HS care. Patient reported getting a shower today and washes up in the AM. Fresh Ice water provided to patient.
--- NOTE | 2020-10-01 01:13 | NURSING ---
Pt assisted to bathroom, paulina care provided and whitney applied, assisted back to bed, polar care in place, o2 reapplied, pt denies further need. All pt care provided in room, remains in covid precautions.
--- NOTE | 2020-10-01 03:09 | NURSING ---
Pt states she's having trouble sleeping, requested to get up in chair, states sometimes I have nights like this at home, too. Assisted to sit in chair, legs elevated and blankets and pillows placed for comfort, polar care filled with ice. Pt denies further needs, call light in reach.
[2020-10-01 06:30] VITALS: BP 132/64; PULSE 60; RESP 16; TEMP 36.9; O2SAT 99
[2020-10-01] MEDS: Atenolol 25 MG Tablet PO (06:30)
[2020-10-01] MEDS: Losartan Potassium 100 MG Tablet PO (06:30)
[2020-10-01] MEDS: NIFEdipine 30 MG Tablet PO (06:30)
[2020-10-01] MEDS: Nystatin Powder 15gm Bottle 1 APPLIC TOPICAL ×2 (06:30→17:25)
[2020-10-01] MEDS: Pantoprazole Sodium 40 MG Tablet PO (06:30)
[2020-10-01] MEDS: APIXABAN 2.5 MG TABLET PO ×2 (06:30→17:24)
[2020-10-01] MEDS: LINAGLIPTIN 5 MG TABLET PO (06:30)
[2020-10-01] MEDS: Acetaminophen 500 MG Tablet 1000 MG PO ×3 (06:31→21:16)
[2020-10-01] MEDS: Levothyroxine 100 MCG Tablet PO (06:31)
[2020-10-01] MEDS: Sertraline 50 MG Tablet PO (06:31)
[2020-10-01] MEDS: Fluticasone 0.05% 1 SPRAY NASAL.SRY 2 SPRAY NASAL (06:35)
[2020-10-01] MEDS: Menthol/Lanolin/Calamine/Znox 113 GM Tube 1 APPLIC TOPICAL ×2 (06:35→17:25)
[2020-10-01] MEDS: Senna/Docusate Sodium 1 Tablet 2 TABLET PO ×2 (06:36→17:25)
[2020-10-01 07:01] LABS: Bedside Glucose 107 mg/dL (70-110)
[2020-10-01] MEDS: Glimepiride 1 MG Tablet PO (08:03)
[2020-10-01] MEDS: Multivitamins,Therapeutic Tablet 1 TABLET PO (08:03)
[2020-10-01] MEDS: Magnesium Chloride 64 MG Delay Rel.Tablet 128 MG PO (08:03)
[2020-10-01] MEDS: Ascorbic Acid 500 MG Tablet PO ×2 (08:04→17:24)
[2020-10-01 10:00] VITALS: PULSE 60; RESP 18; O2SAT 95
[2020-10-01] MEDS: Ferrous Sulfate 325 MG Tablet PO (11:10)
[2020-10-01 15:49] VITALS: BP 124/50; PULSE 60; RESP 18; TEMP 36.4; O2SAT 95
[2020-10-01] MEDS: Atorvastatin Calcium 40 MG Tablet PO (21:16)
--- NOTE | 2020-10-01 22:50 | PCA ---
Pt declined to wash up in the evening stating she prefers am care. em
[2020-10-02 05:00] VITALS: BP 144/59; PULSE 62; RESP 18; TEMP 36.5; O2SAT 96
[2020-10-02] MEDS: Sertraline 50 MG Tablet PO (05:28)
[2020-10-02] MEDS: Atenolol 25 MG Tablet PO (05:28)
[2020-10-02] MEDS: Levothyroxine 100 MCG Tablet PO (05:28)
[2020-10-02] MEDS: NIFEdipine 30 MG Tablet PO (05:28)
[2020-10-02] MEDS: Losartan Potassium 100 MG Tablet PO (05:28)
[2020-10-02] MEDS: APIXABAN 2.5 MG TABLET PO ×2 (05:29→17:14)
[2020-10-02] MEDS: Fluticasone 0.05% 1 SPRAY NASAL.SRY 2 SPRAY NASAL (05:29)
[2020-10-02] MEDS: Acetaminophen 500 MG Tablet 1000 MG PO ×3 (05:29→20:39)
[2020-10-02] MEDS: Nystatin Powder 15gm Bottle 1 APPLIC TOPICAL ×2 (05:29→17:14)
[2020-10-02] MEDS: Senna/Docusate Sodium 1 Tablet 2 TABLET PO (05:29)
[2020-10-02] MEDS: Pantoprazole Sodium 40 MG Tablet PO (05:29)
[2020-10-02] MEDS: LINAGLIPTIN 5 MG TABLET PO (05:29)
[2020-10-02] MEDS: Menthol/Lanolin/Calamine/Znox 113 GM Tube 1 APPLIC TOPICAL ×2 (05:30→17:15)
[2020-10-02 06:26] LABS: Bedside Glucose 100 mg/dL (70-110)
[2020-10-02 08:01] LABS: Absolute Neutrophil Count 7.2 X10^3/uL (2.0-7.7); Basophil# 0.03 X10^3/uL; Basophil% 0.3 % (0-1); Eosinophil# 0.47 X10^3/uL; Eosinophils% 4.4 % (0-5); Hematocrit 31.5 % (37-47); Hemoglobin 9.5 g/dL (12.0-15.0); Lymphocyte % 19.8 % (19-41); Mean Corp Hgb Conc 30.2 g/dL (32-36); Mean Corpuscular Hgb 29.5 pg (27.0-32.0); Mean Corpuscular Volume 97.8 fL (81-99); Mean Platelet Vol. 8.9 fl (6.2-12.0); Monocyte# 0.75 X10^3/uL; Monocyte% 7.1 % (0-10); NRBC Flagged by Analyzer 0 % (0-5); Neutrophil % 67.7 % (47-70); Platelet Count 527 K/mm3 (150-450); RBC Distribution Width CV 13.4 % (11.6-14.6); RBC Distribution Width SD 47.6 fl (35.1-43.9); Red Blood Count 3.22 M/mm3 (4.2-5.4); White Blood Count 10.6 K/mm3 (4.4-11.0)
[2020-10-02 08:23] LABS: Anion Gap 6 (5-15); BUN 30 mg/dL (7-18); BUN/Creat Ratio 25.9 RATIO (10-20); Calcium,Total 9.3 mg/dL (8.5-10.1); Chloride 107 mmol/L (98-107); Creatinine, Serum 1.16 mg/dL (0.55-1.02); EST Glomerular Filtration Rate 48 mL/min (>60); Est Glom Filt Rate - Afr Amer 58 mL/min (>60); Estimated Creatinine Clearance 29.64 ml/min; Glucose 109 mg/dL (74-106); Potassium 4.7 mmol/L (3.5-5.1); Sodium Level 138 mmol/L (136-145)
[2020-10-02] MEDS: Magnesium Chloride 64 MG Delay Rel.Tablet 128 MG PO (08:51)
[2020-10-02] MEDS: Multivitamins,Therapeutic Tablet 1 TABLET PO (08:52)
[2020-10-02] MEDS: Ascorbic Acid 500 MG Tablet PO ×2 (08:52→17:13)
[2020-10-02] MEDS: Glimepiride 1 MG Tablet PO (08:52)
[2020-10-02] MEDS: Ferrous Sulfate 325 MG Tablet PO (11:52)
[2020-10-02 12:40] VITALS: O2SAT 96
[2020-10-02 15:36] VITALS: BP 122/52; PULSE 60; RESP 16; TEMP 36.6; O2SAT 97
[2020-10-02] MEDS: Atorvastatin Calcium 40 MG Tablet PO (20:39)
[2020-10-03 05:00] VITALS: BP 122/50; PULSE 59; RESP 18; TEMP 36.6; O2SAT 98
[2020-10-03] MEDS: Fluticasone 0.05% 1 SPRAY NASAL.SRY 2 SPRAY NASAL (05:46)
[2020-10-03] MEDS: Menthol/Lanolin/Calamine/Znox 113 GM Tube 1 APPLIC TOPICAL ×2 (05:46→16:54)
[2020-10-03] MEDS: Nystatin Powder 15gm Bottle 1 APPLIC TOPICAL ×2 (05:46→16:55)
[2020-10-03] MEDS: APIXABAN 2.5 MG TABLET PO ×2 (05:47→16:54)
[2020-10-03] MEDS: Atenolol 25 MG Tablet PO (05:47)
[2020-10-03] MEDS: Losartan Potassium 100 MG Tablet PO (05:47)
[2020-10-03] MEDS: Sertraline 50 MG Tablet PO (05:47)
[2020-10-03] MEDS: Pantoprazole Sodium 40 MG Tablet PO (05:47)
[2020-10-03] MEDS: Levothyroxine 100 MCG Tablet PO (05:47)
[2020-10-03] MEDS: LINAGLIPTIN 5 MG TABLET PO (05:47)
[2020-10-03] MEDS: Acetaminophen 500 MG Tablet 1000 MG PO ×3 (05:47→22:36)
[2020-10-03] MEDS: NIFEdipine 30 MG Tablet PO (05:47)
[2020-10-03 06:26] LABS: Bedside Glucose 105 mg/dL (70-110)
[2020-10-03] MEDS: Glimepiride 1 MG Tablet PO (08:17)
[2020-10-03] MEDS: Ascorbic Acid 500 MG Tablet PO ×2 (08:17→16:54)
[2020-10-03] MEDS: Multivitamins,Therapeutic Tablet 1 TABLET PO (08:17)
[2020-10-03] MEDS: Magnesium Chloride 64 MG Delay Rel.Tablet 128 MG PO (08:17)
[2020-10-03] MEDS: Ferrous Sulfate 325 MG Tablet PO (10:56)
[2020-10-03 15:30] VITALS: BP 120/46; PULSE 62; RESP 16; TEMP 36.2; O2SAT 97
[2020-10-03] MEDS: Atorvastatin Calcium 40 MG Tablet PO (22:37)
[2020-10-04 06:31] LABS: Bedside Glucose 99 mg/dL (70-110)
[2020-10-04] MEDS: Ascorbic Acid 500 MG Tablet PO ×2 (08:31→19:04)
[2020-10-04] MEDS: Losartan Potassium 100 MG Tablet PO (08:31)
[2020-10-04] MEDS: NIFEdipine 30 MG Tablet PO (08:31)
[2020-10-04] MEDS: APIXABAN 2.5 MG TABLET PO ×2 (08:31→19:04)
[2020-10-04] MEDS: Levothyroxine 100 MCG Tablet PO (08:32)
[2020-10-04] MEDS: Magnesium Chloride 64 MG Delay Rel.Tablet 128 MG PO (08:32)
[2020-10-04] MEDS: Senna/Docusate Sodium 1 Tablet 2 TABLET PO ×2 (08:32→17:19)
[2020-10-04] MEDS: Sertraline 50 MG Tablet PO (08:32)
[2020-10-04] MEDS: Acetaminophen 500 MG Tablet 1000 MG PO ×3 (08:33→20:22)
[2020-10-04] MEDS: Pantoprazole Sodium 40 MG Tablet PO (08:33)
[2020-10-04] MEDS: Multivitamins,Therapeutic Tablet 1 TABLET PO (08:34)
[2020-10-04] MEDS: LINAGLIPTIN 5 MG TABLET PO (08:34)
[2020-10-04] MEDS: Glimepiride 1 MG Tablet PO (08:35)
[2020-10-04] MEDS: Fluticasone 0.05% 1 SPRAY NASAL.SRY 2 SPRAY NASAL (08:35)
[2020-10-04] MEDS: Menthol/Lanolin/Calamine/Znox 113 GM Tube 1 APPLIC TOPICAL ×2 (08:36→17:16)
[2020-10-04] MEDS: Nystatin Powder 15gm Bottle 1 APPLIC TOPICAL ×2 (08:36→17:16)
[2020-10-04 08:38] VITALS: BP 119/32; PULSE 59; RESP 16; TEMP 36.6; O2SAT 98
[2020-10-04 10:00] VITALS: PULSE 72
[2020-10-04] MEDS: Ferrous Sulfate 325 MG Tablet PO (11:52)
[2020-10-04 14:24] VITALS: BP 135/52; PULSE 63; RESP 16; TEMP 36.2; O2SAT 98
[2020-10-04] MEDS: Atorvastatin Calcium 40 MG Tablet PO (20:22)
[2020-10-05 05:00] VITALS: BP 133/63; PULSE 74; RESP 16; TEMP 36.5; O2SAT 96
[2020-10-05] MEDS: Fluticasone 0.05% 1 SPRAY NASAL.SRY 2 SPRAY NASAL (05:56)
[2020-10-05] MEDS: LINAGLIPTIN 5 MG TABLET PO (05:57)
[2020-10-05] MEDS: APIXABAN 2.5 MG TABLET PO ×2 (05:57→17:28)
[2020-10-05] MEDS: NIFEdipine 30 MG Tablet PO (05:57)
[2020-10-05] MEDS: Losartan Potassium 100 MG Tablet PO (05:57)
[2020-10-05] MEDS: Sertraline 50 MG Tablet PO (05:57)
[2020-10-05] MEDS: Atenolol 25 MG Tablet PO (05:57)
[2020-10-05] MEDS: Levothyroxine 100 MCG Tablet PO (05:57)
[2020-10-05] MEDS: Senna/Docusate Sodium 1 Tablet 2 TABLET PO (05:57)
[2020-10-05] MEDS: Pantoprazole Sodium 40 MG Tablet PO (05:57)
[2020-10-05] MEDS: Acetaminophen 500 MG Tablet 1000 MG PO ×3 (05:57→20:08)
[2020-10-05] MEDS: Menthol/Lanolin/Calamine/Znox 113 GM Tube 1 APPLIC TOPICAL ×2 (05:59→17:29)
[2020-10-05] MEDS: Nystatin Powder 15gm Bottle 1 APPLIC TOPICAL ×2 (05:59→17:29)
[2020-10-05 06:25] LABS: Bedside Glucose 99 mg/dL (70-110)
[2020-10-05] MEDS: Ascorbic Acid 500 MG Tablet PO ×2 (08:14→17:28)
[2020-10-05] MEDS: Glimepiride 1 MG Tablet PO (08:14)
[2020-10-05] MEDS: Magnesium Chloride 64 MG Delay Rel.Tablet 128 MG PO (08:14)
[2020-10-05] MEDS: Multivitamins,Therapeutic Tablet 1 TABLET PO (08:14)
[2020-10-05] MEDS: Ferrous Sulfate 325 MG Tablet PO (10:55)
[2020-10-05 13:49] VITALS: BP 129/47; PULSE 75; RESP 17; TEMP 36.4; O2SAT 96
[2020-10-05 17:30] VITALS: BP 121/51; PULSE 69
[2020-10-05] MEDS: Atorvastatin Calcium 40 MG Tablet PO (20:08)
[2020-10-06] MEDS: Losartan Potassium 100 MG Tablet PO (05:36)
[2020-10-06] MEDS: Acetaminophen 500 MG Tablet 1000 MG PO ×3 (05:36→20:06)
[2020-10-06] MEDS: NIFEdipine 30 MG Tablet PO (05:36)
[2020-10-06] MEDS: Pantoprazole Sodium 40 MG Tablet PO (05:36)
[2020-10-06] MEDS: Sertraline 50 MG Tablet PO (05:36)
[2020-10-06 05:37] VITALS: BP 137/50; PULSE 67; RESP 17; TEMP 35.9; O2SAT 97
[2020-10-06] MEDS: Nystatin Powder 15gm Bottle 1 APPLIC TOPICAL ×2 (05:37→17:15)
[2020-10-06] MEDS: Fluticasone 0.05% 1 SPRAY NASAL.SRY 2 SPRAY NASAL (05:37)
[2020-10-06] MEDS: LINAGLIPTIN 5 MG TABLET PO (05:37)
[2020-10-06] MEDS: APIXABAN 2.5 MG TABLET PO ×2 (05:37→17:14)
[2020-10-06] MEDS: Levothyroxine 100 MCG Tablet PO (05:37)
[2020-10-06] MEDS: Atenolol 25 MG Tablet PO (05:37)
[2020-10-06] MEDS: Menthol/Lanolin/Calamine/Znox 113 GM Tube 1 APPLIC TOPICAL ×2 (05:44→17:15)
[2020-10-06 06:31] LABS: Bedside Glucose 85 mg/dL (70-110)
[2020-10-06] MEDS: Multivitamins,Therapeutic Tablet 1 TABLET PO (07:54)
[2020-10-06] MEDS: Magnesium Chloride 64 MG Delay Rel.Tablet 128 MG PO (07:54)
[2020-10-06] MEDS: Ascorbic Acid 500 MG Tablet PO ×2 (07:54→17:14)
[2020-10-06] MEDS: Glimepiride 1 MG Tablet PO (07:54)
[2020-10-06 10:00] VITALS: PULSE 62; RESP 18; O2SAT 99
[2020-10-06] MEDS: Ferrous Sulfate 325 MG Tablet PO (11:32)
--- NOTE | 2020-10-06 13:00 | CASEMGMT ---
Social Work Continued stay denied by insurance with last cover day being 10/08/2020 and patient to discharge or financial responsibility to begin on 10/09/2020. Met with patient in room. This social media marketer updated patient on above information. Patient voices understanding and request for this social media marketer to contact patient sister, Nroah in regards to whether or not patient should return to home. Telephone call to Pat, Pat voices concerns about patient returning to home and is recommending for patient to transition to a half-way or assisted living. This social media marketer updated patient on Pat's concerns about patient returning to home. Pat voices understanding and request for this social media marketer to set up meeting with Pat, patient and this social media marketer to discuss discharge planning further. Telephone call back to Pat, to schedule appointment. This social media marketer to meet with patient and Pat on 10/06/2020 @ 3:00pm. Proposed discharge date: 10/09/2020 Disposition: Undecided. Home alone vs. half-way. Ishan CARTAGENA, MAYRAS
[2020-10-06 14:04] VITALS: BP 113/59; PULSE 65; RESP 18; TEMP 35.9; O2SAT 97
--- NOTE | 2020-10-06 16:37 | CASEMGMT ---
Social Work Brief interview for mental status (BIMS) and resident mood interview (PHQ-9) completed on this day. Ishan CARTAGENA, MAYRAS
[2020-10-06] MEDS: Atorvastatin Calcium 40 MG Tablet PO (20:06)
--- NOTE | 2020-10-06 20:11 | PCM.DC.SUM ---
Providers Date of Admission: 09/17/20 Primary Care Physician: Dr. Flavia Aldrich MD Reason For Visit: L HIP FRACTURE Diagnosis Discharge Diagnosis (1) Debility: Status: Acute Code(s): R53.81 - Other malaise (2) Closed left hip fracture: Status: Acute Code(s): S72.002A - Fracture of unspecified part of neck of left femur, initial encounter for closed fracture (3) Stroke: Status: Acute Code(s): I63.9 - Cerebral infarction, unspecified (4) Aphasia: Status: Acute Code(s): R47.01 - Aphasia (5) BPPV (benign paroxysmal positional vertigo): Status: Acute Code(s): H81.10 - Benign paroxysmal vertigo, unspecified ear (6) Depression: Status: Acute Code(s): F32.9 - Major depressive disorder, single episode, unspecified (7) Diabetes mellitus: Status: Acute Code(s): E11.9 - Type 2 diabetes mellitus without complications (8) Hypertension: Status: Chronic Code(s): I10 - Essential (primary) hypertension (9) GERD (gastroesophageal reflux disease): Status: Acute Code(s): K21.9 - Gastro-esophageal reflux disease without esophagitis (10) Hyperlipidemia: Status: Acute Code(s): E78.5 - Hyperlipidemia, unspecified (11) Hypothyroidism: Status: Acute Code(s): E03.9 - Hypothyroidism, unspecified (12) Iron deficiency anemia: Status: Acute Code(s): D50.9 - Iron deficiency anemia, unspecified (13) Body mass index (BMI) greater than 40: Status: Acute (14) Hypomagnesemia: Status: Acute Code(s): E83.42 - Hypomagnesemia (15) Bilateral carotid artery stenosis: Status: Acute Code(s): I65.23 - Occlusion and stenosis of bilateral carotid arteries Medications at Discharge Home Medications multivitamin 1 ea PO DAILY 09/08/16 sitagliptin 50 mg PO DAILY 06/16/19 fish oil-dha-epa 1,200 mg-144 mg-216 mg capsule 1,200 cap PO DAILY 09/01/19 fluticasone propionate 50 mcg/actuation nasal spray,suspension 2 spray INTRANASAL DAILY 09/01/19 ibuprofen 200 mg tablet 200 mg PO Q6H PRN 09/01/19 levothyroxine 25 mcg tablet 100 mcg PO DAILY tab 03/10/20 Calmoseptine 1 applic TOPICAL BID 09/17/20 Eliquis 2.5 mg PO BID 09/17/20 acetaminophen 1,000 mg PO Q8 09/17/20 ascorbic acid (vitamin C) 500 mg PO BIDCM 09/17/20 atenolol 25 mg PO DAILY 09/17/20 atorvastatin 40 mg PO QHS 09/17/20 ferrous sulfate 325 mg PO DAILY@1200 09/17/20 glimepiride 1 mg PO DAILY 09/17/20 losartan 100 mg PO DAILY 09/17/20 magnesium oxide 400 mg PO DAILYCM 09/17/20 nifedipine 30 mg PO DAILY 09/17/20 nystatin [Nyamyc] 1 applic TOPICAL BID 09/17/20 pantoprazole 40 mg PO DAILY 09/17/20 sennosides-docusate sodium 2 tab-cap PO Q OTHER DAY 09/17/20 sertraline 50 mg PO DAILY 09/17/20 aspirin 81 mg PO BREAKFAST #0 tab 10/06/20 Hospital Course Operations None Procedures None Summary of Care Provided Minutes Spent on Discharge: 35 Hospital Course: 75 year old female with below past medical history hospitalized for left hip fracture, underwent open reduction internal fixation intramedullary karma 09/13/[address] Ba Cary, complicated by post-operative anemia, admitted to TCU with debility, here for rehabilitation, strengthening, prior to discharge home alone. Discharge to [facility] 10/09/2020, intermediate level of care, PT/OT. Physical Exam Const alert and oriented x3 General Appearance: cooperative HEENT normocephalic Eyes PERRL and EOMs intact bilaterally Neck supple, no JVD and no carotid bruits Resp normal respiratory effort, normal air movement and clear to auscultation bilaterally Cardio regular rate and regular rhythm GI normal to inspection, nondistended, normoactive bowel sounds, non-tender and non-distended Extremity normal capillary refill General Extremity: Negative for edema Skin no rashes or lesions noted General Skin Exam: no breakdown Psych affect normal Appearance: appropriate Weight / BMI Weight Weight: 98.203 kg Body Mass Index (BMI) 43.0 ABG / Lab / Microbiology Data Result Diagrams: 10/02/20 07:57 10/02/20 07:57 Laboratory: Laboratory Results - last 24 hr 10/06/20 06:24 POC Glucose 85 D/C Instructions Discharge Diet: No restrictions Discharge Activity: Return to Normal Activity, May Shower and Use Walker Weight Bearing Status: Weight bearing as tolerated Call your doctor if you observe: Fever of 101 or Higher, Inability to urinate, Inability to have a bowel movement, Shortness of breath, Fainting spells, Swelling in the ankles, Chest pain and Uncontrolled pain Additional Instructions: Discharge to [facility] 10/09/2020, intermediate level of care, PT/OT. Please Follow Up With: Ba Cary MD When: As scheduled. Meaningful Use Info Meaningful Use Diagnoses (Choose all that apply): None applicable Discharge Plan Admission Admit Date/Time: 09/17/20 13:24 Primary Reason for Your Visit: Debility. Attending Provider: Noe Wong Chi Primary Care Provider: Flavia Aldrich Instructions Additional Instructions / Restrictions: Discharge to [facility] 10/09/2020, intermediate level of care, PT/OT. Discharge Orders/Prescriptions Prescriptions: New aspirin 81 mg Tablet,Delayed Release (Dr/Ec) 81 mg PO BREAKFAST Qty: 0 RF: 0 Continued fluticasone propionate [Allergy Relief (fluticasone)] 50 mcg/actuation spray,suspension 2 spray INTRANASAL DAILY RF: 0 levothyroxine 25 mcg tablet 100 mcg PO DAILY RF: 0 multivitamin 1 EACH tablet 1 ea PO DAILY RF: 0 sitagliptin 50 MG tablet 50 mg PO DAILY RF: 0 nifedipine 30 MG tablet extended release 24hr 30 mg PO DAILY RF: 0 atorvastatin 40 MG tablet 40 mg PO QHS RF: 0 sennosides-docusate sodium 8.6-50 mg tablet 2 tab-cap PO Q OTHER DAY RF: 0 acetaminophen 500 mg tablet 1,000 mg PO Q8 RF: 0 glimepiride 1 MG tablet 1 mg PO DAILY RF: 0 magnesium oxide 400 MG tablet 400 mg PO DAILYCM RF: 0 ascorbic acid (vitamin C) 500 mg tablet 500 mg PO BIDCM RF: 0 pantoprazole 40 mg tablet,delayed release (DR/EC) 40 mg PO DAILY RF: 0 ferrous sulfate 325 MG tablet 325 mg PO DAILY@1200 RF: 0 nystatin [Nyamyc] 100,000 unit/gram powder 1 applic topical BID RF: 0 losartan 100 mg tablet 100 mg PO DAILY RF: 0 sertraline 50 MG tablet 50 mg PO DAILY RF: 0 atenolol 50 mg tablet 25 mg PO DAILY RF: 0 Calmoseptine 0.44-20.6 % ointment 1 applic topical BID RF: 0 Eliquis 2.5 mg tablet 2.5 mg PO BID RF: 0 Discontinued aspirin 325 mg tablet,delayed release (DR/EC) 325 mg PO DAILY RF: 0 Hold Instructions: Resume on 10/15/20. Hold while patient is on Eliquis for DVT prophylaxis for about 30 days. No Action fish oil-dha-epa 1,200-144-216 mg capsule 1,200 cap PO DAILY RF: 0 ibuprofen 200 mg tablet 200 mg PO Q6H PRN (Reason: Pain Or Fever) RF: 0 Referrals / Follow Up: Flavia Aldrich MD [Primary Care Provider] - Disposition Disposition (needs filled in before D/C Order can be placed): NonSkilled NH/Intermed Care
--- NOTE | 2020-10-06 20:19 | TREXTCAR_ITS ---
Diet 09/20/20 11:52 Diet: Cardiac - Heart Healthy Food consistency:: Regular Liquid Consistency:: Regular/Thin Dietary Modifications:: Consistent Carbohydrate Sodium Restricted Is pt able to select menu?: Yes Diet Comments: small portions per res request; lactose free milk w/ cereal for B - not soy Routine Orders/Code Status Suppository Type: Dulcolax 10mg Suppository Frequency: Daily PRN Code [facility] Wound(s) Lower left abdomen: Wound Type: Abrasion coccyx/bottom: Wound Type: shearing Dressing Change: whitney left hip/posterior thigh: Wound Type: Surgical Incision Dressing Change: silver surg mepilex left big toe: Wound Type: wart right heel: Wound Type: wart Therapies Weight Bearing: Weight bearing as tolerated Extremity Affected:: Bilateral Lower Physical Therapy: Eval and Treat Occupational Therapy: Eval and Treat Problem/Diagnosis (1) Debility: Status: Acute (2) Closed left hip fracture: Status: Acute (3) Stroke: Status: Acute (4) Aphasia: Status: Acute (5) BPPV (benign paroxysmal positional vertigo): Status: Acute (6) Depression: Status: Acute (7) Diabetes mellitus: Status: Acute (8) Hypertension: Status: Chronic (9) GERD (gastroesophageal reflux disease): Status: Acute (10) Hyperlipidemia: Status: Acute (11) Hypothyroidism: Status: Acute (12) Iron deficiency anemia: Status: Acute (13) Body mass index (BMI) greater than 40: Status: Acute (14) Hypomagnesemia: Status: Acute (15) Bilateral carotid artery stenosis: Status: Acute Allergies/Procedures Done in Hospital Allergies adhesive tape Allergy (Intermediate, Verified 04/15/20 16:51) Unknown Sulfa (Sulfonamide Antibiotics) Allergy (Verified 04/15/20 16:51) Rash lisinopril Adverse Reaction (Verified 04/15/20 16:51) cough Procedures: None Type of Care/Length of Stay Estimated LOS: Convalescent Care Less Than 30 days Type of Care Needed: Intermediate Rehab Potential: Good Prognosis: Fair Additional Orders/Day of Discharge Day of Discharge: 10/09/20 Dietary and Speech Recommendations Dietitian Recommendations/Changes: Will change to Consistent CHO/ Cardiac/ Na restricted diet - with small portions per res request. Will continue provide lactose free milk w/ breakfast for cereal. Follow Up Care Please Follow Up With: Ba Cary MD When: 2 weeks Please Follow Up With: Flavia Aldrich MD When: d/c from TCU Discharge Plan Admission Admit Date/Time: 09/17/20 13:24 Primary Reason for Your Visit: Debility. Attending Provider: Noe Wong Chi Primary Care Provider: Flavia Aldrich Instructions Additional Instructions / Restrictions: Discharge to [facility] 10/09/2020, intermediate level of care, PT/OT. Discharge Orders/Prescriptions Prescriptions: New aspirin 81 mg Tablet,Delayed Release (Dr/Ec) 81 mg PO BREAKFAST Qty: 0 RF: 0 Continued fluticasone propionate [Allergy Relief (fluticasone)] 50 mcg/actuation sp ray,suspension 2 spray INTRANASAL DAILY RF: 0 levothyroxine 25 mcg tablet 100 mcg PO DAILY RF: 0 multivitamin 1 EACH tablet 1 ea PO DAILY RF: 0 sitagliptin 50 MG tablet 50 mg PO DAILY RF: 0 nifedipine 30 MG tablet extended release 24hr 30 mg PO DAILY RF: 0 atorvastatin 40 MG tablet 40 mg PO QHS RF: 0 sennosides-docusate sodium 8.6-50 mg tablet 2 tab-cap PO Q OTHER DAY RF: 0 acetaminophen 500 mg tablet 1,000 mg PO Q8 RF: 0 glimepiride 1 MG tablet 1 mg PO DAILY RF: 0 magnesium oxide 400 MG tablet 400 mg PO DAILYCM RF: 0 ascorbic acid (vitamin C) 500 mg tablet 500 mg PO BIDCM RF: 0 pantoprazole 40 mg tablet,delayed release (DR/EC) 40 mg PO DAILY RF: 0 ferrous sulfate 325 MG tablet 325 mg PO DAILY@1200 RF: 0 nystatin [Nyamyc] 100,000 unit/gram powder 1 applic topical BID RF: 0 losartan 100 mg tablet 100 mg PO DAILY RF: 0 sertraline 50 MG tablet 50 mg PO DAILY RF: 0 atenolol 50 mg tablet 25 mg PO DAILY RF: 0 Calmoseptine 0.44-20.6 % ointment 1 applic topical BID RF: 0 Eliquis 2.5 mg tablet 2.5 mg PO BID RF: 0 Discontinued aspirin 325 mg tablet,delayed release (DR/EC) 325 mg PO DAILY RF: 0 Hold Instructions: Resume on 10/15/20. Hold while patient is on Eliquis for DVT prophylaxis for about 30 days. No Action fish oil-dha-epa 1,200-144-216 mg capsule 1,200 cap PO DAILY RF: 0 ibuprofen 200 mg tablet 200 mg PO Q6H PRN (Reason: Pain Or Fever) RF: 0 Referrals / Follow Up: Flavia Aldrich MD [Primary Care Provider] - Disposition Disposition (needs filled in before D/C Order can be placed): NonSkilled NH/Intermed Care
[2020-10-07 05:00] VITALS: BP 136/49; PULSE 63; RESP 18; TEMP 36.3; O2SAT 97
[2020-10-07] MEDS: LINAGLIPTIN 5 MG TABLET PO (06:11)
[2020-10-07] MEDS: Acetaminophen 500 MG Tablet 1000 MG PO ×3 (06:11→20:43)
[2020-10-07] MEDS: Atenolol 25 MG Tablet PO (06:11)
[2020-10-07] MEDS: Sertraline 50 MG Tablet PO (06:11)
[2020-10-07] MEDS: NIFEdipine 30 MG Tablet PO (06:11)
[2020-10-07] MEDS: Pantoprazole Sodium 40 MG Tablet PO (06:11)
[2020-10-07] MEDS: Levothyroxine 100 MCG Tablet PO (06:12)
[2020-10-07] MEDS: Senna/Docusate Sodium 1 Tablet 2 TABLET PO ×2 (06:12→17:16)
[2020-10-07] MEDS: Menthol/Lanolin/Calamine/Znox 113 GM Tube 1 APPLIC TOPICAL ×2 (06:12→17:16)
[2020-10-07] MEDS: APIXABAN 2.5 MG TABLET PO ×2 (06:12→17:16)
[2020-10-07] MEDS: Losartan Potassium 100 MG Tablet PO (06:12)
[2020-10-07] MEDS: Nystatin Powder 15gm Bottle 1 APPLIC TOPICAL ×2 (06:12→17:16)
[2020-10-07] MEDS: Fluticasone 0.05% 1 SPRAY NASAL.SRY 2 SPRAY NASAL (06:13)
[2020-10-07 06:41] LABS: Bedside Glucose 101 mg/dL (70-110)
[2020-10-07] MEDS: Multivitamins,Therapeutic Tablet 1 TABLET PO (07:51)
[2020-10-07] MEDS: Magnesium Chloride 64 MG Delay Rel.Tablet 128 MG PO (07:51)
[2020-10-07] MEDS: Glimepiride 1 MG Tablet PO (07:51)
[2020-10-07] MEDS: Ascorbic Acid 500 MG Tablet PO ×2 (07:51→17:16)
[2020-10-07] MEDS: Ferrous Sulfate 325 MG Tablet PO (11:16)
[2020-10-07 13:22] VITALS: BP 112/51; PULSE 62; RESP 17; TEMP 37.1; O2SAT 96
--- NOTE | 2020-10-07 15:59 | CASEMGMT ---
Social Work Met with patient and patient sister, Norah in room. Patient is choosing to discharge to home alone. Pat is supportive of patient returning to home but clear that Pat will no longer be able to assist patient in the home due to Pat having own medical issues. Patient voices understanding and plans to return to home. Pat and patient to coordinate transportation to home for patient. Patient is agreeable to home health for physical and occupational therapy as well a skilled nurse. Patient request for home health services to be set up through [facility]. Patient reports to have needed DME already set up in the home. Patient reports to be active with [facility] and [facility]. Patient declining for this professor of social work to contact [facility] for patient, patient reports plan to contact [facility] on own. Patient denies any further concerns on returning to home. [facility] made for physical and occupational therapy as well as long-term. Order faxed along with discharge information. [facility] updated on patient discharge date and plan. Proposed discharge date: 10/09/2020 Disposition: Home alone with home health care. Ishan CARTAGENA, OPAL
--- NOTE | 2020-10-07 16:21 | CHAPLAIN ---
Type of Pastoral Visit ___ Initial Visit _x__ Follow-up Visit ___ On-call Visit ___ General Patient Visit ___ Spiritual Assessment ___ Family Conference ___ Bereavement ___ Rapid Response ___ Code Blue ___ Other (describe below) Pastoral Care Referral From _x__ Patient ___ Family ___ Nurse ___ Physician ___ Branch Service Leader ___ Tearer ___ Other (describe below) Sacrament/Intervention _x__ Active listening ___ Anointing ___ Muslim ___ Bereavement ___ Communion ___ Farida exploration ___ ___ Life review ___ Prayer ___ Reconciliation ___ Sacrament of Sick _x__ Supportive presence ___ Wedding ___ Other (describe below) Pastoral Comments
[2020-10-07] MEDS: Atorvastatin Calcium 40 MG Tablet PO (20:44)
[2020-10-07 22:15] VITALS: RESP 18
[2020-10-08 05:00] VITALS: BP 136/52; PULSE 62; RESP 18; TEMP 36.4; O2SAT 100
[2020-10-08] MEDS: Fluticasone 0.05% 1 SPRAY NASAL.SRY 2 SPRAY NASAL (05:45)
[2020-10-08] MEDS: Pantoprazole Sodium 40 MG Tablet PO (05:46)
[2020-10-08] MEDS: Menthol/Lanolin/Calamine/Znox 113 GM Tube 1 APPLIC TOPICAL ×2 (05:46→17:03)
[2020-10-08] MEDS: Levothyroxine 100 MCG Tablet PO (05:46)
[2020-10-08] MEDS: Acetaminophen 500 MG Tablet 1000 MG PO ×3 (05:46→21:07)
[2020-10-08] MEDS: Nystatin Powder 15gm Bottle 1 APPLIC TOPICAL ×2 (05:46→17:03)
[2020-10-08] MEDS: Sertraline 50 MG Tablet PO (05:46)
[2020-10-08] MEDS: NIFEdipine 30 MG Tablet PO (05:46)
[2020-10-08] MEDS: Atenolol 25 MG Tablet PO (05:46)
[2020-10-08] MEDS: LINAGLIPTIN 5 MG TABLET PO (05:46)
[2020-10-08] MEDS: APIXABAN 2.5 MG TABLET PO ×2 (05:46→17:02)
[2020-10-08] MEDS: Losartan Potassium 100 MG Tablet PO (05:46)
[2020-10-08] MEDS: Senna/Docusate Sodium 1 Tablet 2 TABLET PO ×2 (05:47→17:02)
[2020-10-08 06:21] LABS: Bedside Glucose 84 mg/dL (70-110)
[2020-10-08] MEDS: Magnesium Chloride 64 MG Delay Rel.Tablet 128 MG PO (07:34)
[2020-10-08] MEDS: Glimepiride 1 MG Tablet PO (07:34)
[2020-10-08] MEDS: Multivitamins,Therapeutic Tablet 1 TABLET PO (07:35)
[2020-10-08] MEDS: Ascorbic Acid 500 MG Tablet PO ×2 (07:35→17:02)
--- NOTE | 2020-10-08 10:27 | MDS.RN ---
Pain interview completed for LEEANNE 10/09/20
[2020-10-08] MEDS: Ferrous Sulfate 325 MG Tablet PO (11:49)
--- NOTE | 2020-10-08 13:37 | CASEMGMT ---
Social Work Return call from [facility] and they are able to accept pt with an anticipated start date of 10/10. Pt notified and agreeable. Plan: Home with [facility] PT/OT/SN. FLIP and RAVINDRA. EBONIE Ramirez
[2020-10-08] MEDS: Magnesium Citrate 300 ML PO (15:14)
[2020-10-08 15:40] VITALS: BP 117/58; PULSE 66; RESP 16; TEMP 36; O2SAT 97
[2020-10-08] MEDS: Atorvastatin Calcium 40 MG Tablet PO (21:07)
[2020-10-09 05:00] VITALS: BP 128/50; PULSE 61; RESP 16; TEMP 36.6; O2SAT 98
[2020-10-09] MEDS: Fluticasone 0.05% 1 SPRAY NASAL.SRY 2 SPRAY NASAL (05:33)
[2020-10-09] MEDS: LINAGLIPTIN 5 MG TABLET PO (05:34)
[2020-10-09] MEDS: APIXABAN 2.5 MG TABLET PO (05:34)
[2020-10-09] MEDS: Losartan Potassium 100 MG Tablet PO (05:34)
[2020-10-09] MEDS: Levothyroxine 100 MCG Tablet PO (05:34)
[2020-10-09] MEDS: Sertraline 50 MG Tablet PO (05:34)
[2020-10-09] MEDS: Atenolol 25 MG Tablet PO (05:34)
[2020-10-09] MEDS: NIFEdipine 30 MG Tablet PO (05:34)
[2020-10-09] MEDS: Acetaminophen 500 MG Tablet 1000 MG PO ×2 (05:34→13:09)
[2020-10-09] MEDS: Pantoprazole Sodium 40 MG Tablet PO (05:35)
[2020-10-09] MEDS: Menthol/Lanolin/Calamine/Znox 113 GM Tube 1 APPLIC TOPICAL (05:36)
[2020-10-09] MEDS: Nystatin Powder 15gm Bottle 1 APPLIC TOPICAL (05:36)
[2020-10-09 05:39] VITALS: PULSE 61; RESP 16; O2SAT 98
[2020-10-09 06:31] LABS: Bedside Glucose 114 mg/dL (70-110)
[2020-10-09 06:47] LABS: Absolute Lymphocyte Count 1.37 X10^3/uL (0.83-4.51); Absolute Neutrophil Count 3.9 X10^3/uL (2.0-7.7); Basophil# 0.02 X10^3/uL; Basophil% 0.3 % (0-1); Eosinophil# 0.33 X10^3/uL; Eosinophils% 5.3 % (0-5); Hematocrit 29.5 % (37-47); Hemoglobin 8.9 g/dL (12.0-15.0); Lymphocyte # 1.37 X10^3/ul (0.83-4.51); Lymphocyte % 21.9 % (19-41); Mean Corp Hgb Conc 30.2 g/dL (32-36); Mean Corpuscular Hgb 29.7 pg (27.0-32.0); Mean Corpuscular Volume 98.3 fL (81-99); Mean Platelet Vol. 9.6 fl (6.2-12.0); Monocyte# 0.58 X10^3/uL; Monocyte% 9.3 % (0-10); NRBC Flagged by Analyzer 0 % (0-5); Neutrophil # 3.93 X10^3/uL (2.7-7.7); Neutrophil % 62.7 % (47-70); Platelet Count 288 K/mm3 (150-450); RBC Distribution Width CV 14.3 % (11.6-14.6); RBC Distribution Width SD 50.6 fl (35.1-43.9); White Blood Count 6.3 K/mm3 (4.4-11.0)
[2020-10-09 07:08] LABS: Anion Gap 3 (5-15); BUN 36 mg/dL (7-18); BUN/Creat Ratio 29.8 RATIO (10-20); Calcium,Total 9.3 mg/dL (8.5-10.1); Chloride 108 mmol/L (98-107); Creatinine, Serum 1.21 mg/dL (0.55-1.02); EST Glomerular Filtration Rate 46 mL/min (>60); Est Glom Filt Rate - Afr Amer 56 mL/min (>60); Estimated Creatinine Clearance 28.41 ml/min; Glucose 112 mg/dL (74-106); Potassium 4.9 mmol/L (3.5-5.1); Sodium Level 139 mmol/L (136-145)
[2020-10-09] MEDS: Magnesium Chloride 64 MG Delay Rel.Tablet 128 MG PO (08:16)
[2020-10-09] MEDS: Ascorbic Acid 500 MG Tablet PO (08:17)
[2020-10-09] MEDS: Glimepiride 1 MG Tablet PO (08:18)
[2020-10-09] MEDS: Multivitamins,Therapeutic Tablet 1 TABLET PO (08:18)
[2020-10-09] MEDS: Ferrous Sulfate 325 MG Tablet PO (11:44)
[2020-10-09 14:05] VITALS: BP 128/54; PULSE 71; RESP 18; TEMP 36.2; O2SAT 98
--- NOTE | 2020-10-09 14:06 | NURSING ---
FAMILY UPDATED AT DISCHARGE
== END 2020-10-09 14:00 | disposition home health service (06) | DRG 560 ==
PROVIDERS: Admitting Provider Family Medicine Geriatric Medicine; PCP Internal Medicine; Visit Provider Family Medicine Geriatric Medicine
DX: S72.002D Fracture of unspecified part of neck of left femur, subsequent encounter for closed fracture with routine healing (principal); Z68.41 Body mass index [BMI] 40.0-44.9, adult; R47.01 Aphasia; W19.XXXD Unspecified fall, subsequent encounter; B35.4 Tinea corporis; E78.5 Hyperlipidemia, unspecified; K21.9 Gastro-esophageal reflux disease without esophagitis; F32.9 Major depressive disorder, single episode, unspecified; E03.9 Hypothyroidism, unspecified; I12.9 Hypertensive chronic kidney disease with stage 1 through stage 4 chronic kidney disease, or unspecified chronic kidney disease; N18.30 Chronic kidney disease, stage 3 unspecified; D50.9 Iron deficiency anemia, unspecified; E11.22 Type 2 diabetes mellitus with diabetic chronic kidney disease; E66.01 Morbid (severe) obesity due to excess calories; Z79.899 Other long term (current) drug therapy; Z79.01 Long term (current) use of anticoagulants; Z79.84 Long term (current) use of oral hypoglycemic drugs; Z79.82 Long term (current) use of aspirin
CPT/HCPCS: 36415; 80048; 82962; 85014; 85018; 85025; 87635; 97110; 97116; 97163; 97166; 97530; 97535; 97802; U0005; A4216; U0003

== ENCOUNTER 2021-03-23 10:30 | Outpatient (RCR) | payer MEDICARE, SELFPAY ==
[2021-03-16 10:41] VITALS: BP 118/63; PULSE 73; RESP 18
--- NOTE | 2021-03-16 12:20 | PCM.WC.HP ---
History of Present Illness Date of Service: 03/16/21 Chief Complaint: Follow-up left little toe intertriginous diabetic foot ulcer History of Wound: 75-year-old white female noticed about a month ago the ulcer appeared for unknown reasons The skin is warm to touch the entire fifth toe is red and she has a small ulcer on the medial side of the fifth toe. She has been using yeast cream in the area. The wound itself looks clean beefy base. She denies any pain she denies knowing how it started. [facility] Medical History Acute ischemic left middle cerebral artery (MCA) stroke Aphasia BPPV (benign paroxysmal positional vertigo) Cerebrovascular accident involving cerebellum CKD (chronic kidney disease), stage III Closed fracture of left hip requiring operative repair Depression Diabetes mellitus, type II Diabetic nephropathy DVT (deep venous thrombosis) Dysarthria Dysmetabolic syndrome X Essential hypertension GERD (gastroesophageal reflux disease) Grade II diastolic dysfunction HLD (hyperlipidemia) Hypothyroid Hypoxia Intertrigo Iron deficiency Left atrial enlargement Morbid obesity with BMI of 40.0-44.9, adult Normochromic normocytic anemia Occlusion of right vertebral artery Physical debility Proteinuria Sleep-disordered breathing Urinary tract infection Home Medications multivitamin 1 ea PO DAILY 09/08/16 [History Last Taken 06/15/19] sitagliptin 50 mg PO DAILY 06/16/19 [History Last Taken 06/15/19] fish oil-dha-epa 1,200 mg-144 mg-216 mg capsule 1,200 cap PO DAILY 09/01/19 [History Last Taken Unknown] fluticasone propionate 50 mcg/actuation nasal spray,suspension 2 spray INTRANASAL DAILY 09/01/19 [History Last Taken Unknown] atenolol 25 mg PO DAILY 09/17/20 [History Last Taken Unknown] atorvastatin 40 mg PO QHS 09/17/20 [History Last Taken Unknown] glimepiride 1 mg PO DAILY 09/17/20 [History Last Taken Unknown] losartan 100 mg PO DAILY 09/17/20 [History Last Taken Unknown] magnesium oxide 400 mg PO DAILYCM 09/17/20 [History Last Taken Unknown] nifedipine 30 mg PO DAILY 09/17/20 [History Last Taken Unknown] nystatin [Nyamyc] 1 applic TOPICAL BID 09/17/20 [History Last Taken Unknown] sennosides-docusate sodium 2 tab-cap PO Q OTHER DAY 09/17/20 [History Last Taken Unknown] sertraline 50 mg PO DAILY 09/17/20 [History Last Taken Unknown] aspirin 81 mg PO BREAKFAST #0 tab 10/06/20 [Rx Last Taken Unknown] esomeprazole magnesium 20 mg capsule,delayed release 20 mg PO DAILY 03/10/21 [History Last Taken Unknown] levothyroxine 25 mcg tablet 112 mcg PO DAILY tab 03/10/21 [History Last Taken Unknown] Fish Oil 03/16/21 [History Last Taken Unknown] Nexium 24HR 20 mg QODAY 03/16/21 [History Last Taken Unknown] Vit 3 03/16/21 [History Last Taken Unknown] Allergy/AdvReac Type Severity Reaction Status Date / Time adhesive tape Allergy Intermediate Unknown Verified 03/10/21 14:33 Sulfa (Sulfonamide Allergy Rash Verified 03/10/21 14:33 Antibiotics) lisinopril AdvReac cough Verified 03/10/21 14:33 Family History Grandfather Alcoholism Mother Angina at rest Arthritis Diabetes Myocardial infarction, Onset Age: 40 another @70 Heart disease Hypertension Sister Arthritis Bleeding disorder Blood clots Non Hodgkin's lymphoma Kidney cysts Osteoporosis Thyroid disorder Surgical History History of cataract extraction Social History household members: none Smoking Status: Never smoker alcohol intake: former details: Social substance use type: does not use ROS Constitutional Constitutional: Reports systems reviewed and no addt'l complaints, except as documented Eyes Eyes: Reports systems reviewed and no addt'l complaints, except as documented ENT HEENT: Reports systems reviewed and no addt'l complaints, except as documented Cardiovascular Cardiovascular: Reports systems reviewed and no addt'l complaints, except as documented Respiratory/Chest Respiratory/Chest: Reports systems reviewed and no addt'l complaints, except as documented Gastrointestinal Gastrointestinal: Reports systems reviewed and no addt'l complaints, except as documented Genitourinary Genitourinary: Reports systems reviewed and no addt'l complaints, except as documented Musculoskeletal Musculoskeletal: Reports systems reviewed and no addt'l complaints, except as documented Integumentary Integumentary: Reports skin ulcer Neurologic Neurologic: Reports systems reviewed and no addt'l complaints, except as documented Psychiatric Psychiatric: Reports systems reviewed and no addt'l complaints, except as documented Endocrine Endocrinology: Reports systems reviewed and no addt'l complaints, except as documented Hematologic/Lymphatic Hematologic/Lymphatic: Reports systems reviewed and no addt'l complaints, except as documented Allergic/Immunologic Allergic/Immunologic: Reports systems reviewed and no addt'l complaints, except as documented Vital Signs Vital Signs Vital Signs: 03/16/21 10:41 Pulse Rate 73 Respiratory Rate 18 Blood Pressure 118/63 Blood Pressure Mean 81 Blood Pressure Source Monitor Blood Pressure Position Sitting Blood Pressure Location Left Arm Physical Exam Const oriented x3 General Appearance: cooperative Exam Limitations: no limitations Resp normal respiratory effort Effort and Inspection: able to speak in complete sentences Auscultation: clear to auscultation bilaterally Cardio regular rate and regular rhythm Palpation: normal PMI Rate: regular rate Rhythm: regular rhythm GI Auscultation: normoactive bowel sounds Palpation: soft and no hepatosplenomegaly external exam normal Extremity normal to inspection General Extremity: normal exam except as noted Skin Wound Narrative: Left little toe very erythematous and warm to touch. Large ulcer on medial aspect of the little toe. Neuro oriented x3 Psych Appearance: grossly normal Speech: normal speech Thought Content: normal thought content Judgement: judgement good Debridement Note Debridement Note Wound debrided: Nonpressure diabetic foot ulcer Laterality: Left Type of Debridement: Excisional debridement Anesthesia Used: 5% Lidocaine Gel Depth: Down to and including healthy tissue Percentage of wound debrided: 100 Instrument Used: 3mm curette Tissue Removed: Fibrin Severity: Fat Layer Exposed Amount of bleeding with debridement: Mild Bleeding Controlled with: Compression and gauze Patient tolerated procedure: Patient tolerated procedure well Post-Debridement Measurements and Additional Note: Post-Debridement Measurements/Treatment WC - Nurse 1 - General Ulcer Assessment Start: 03/16/21 10:41 Freq: Status: Active Protocol: CYNTHIA Activity Type Activity Date Activity User E-Sign Co-Sign Detail Recorded Client Recorded Date Recorded By Document 03/16/21 10:41 ML [id number] 03/16/21 10:54 ML Edit Result 03/16/21 10:41 ML (1) [id number] 03/16/21 11:02 BMF (1) Right - Posterior Tibial Palpable => No - Posterior Tibial Doppler => Monophasic - Dorsalis Pedis Palpable => No - Dorsalis Pedis Doppler => Multiphasic - Extremity Color => Pale - Hair Growth on Legs => No - Hair Growth on Toes => No - Temperature of Extremity => Warm - Thick => Yes - Discolored => Yes - Deformed => No - Improper Length & Hygeine => No Left - Posterior Tibial Palpable => No - Posterior Tibial Doppler => Monophasic - Dorsalis Pedis Palpable => No - Dorsalis Pedis Doppler => Monophasic - Hair Growth on Legs => No - Hair Growth on Toes => No - Temperature of Extremity => Warm - Prior Foot Ulcer => No - Charcot Joint => No - Prior Amputation => No - Thick => Yes - Discolored => Yes - Deformed => No - Improper Length & Hygeine => No Feet - Top Side and Bottom => <Entered> (a) 03/16/21 10:41 - Today's Visit Information Type of service Initial Visit Patient Identification Verified (Name & Yes ) Patient Requires Transmission-Based No Precautions Safety Precautions NA Vital Signs Pulse Rate (60-100) 73 Pulse Location Monitor Respiratory Rate (12-18) 18 Respiratory rate source Observation Blood Pressure (90/60-120/80) 118/63 Blood Pressure Mean 81 Source Monitor Position Sitting Blood Pressure Location Left Arm History Since Last Visit- (Skip if this is Patient's initial visit) Have you changed medications since your No last visit? Any new allergies or adverse reactions No Had a fall/change in ADL's that may No increase risk of falls Signs or symptoms of abuse and/or No neglect since last visit Have you been in the hospital since your No last visit? Has dressing in place as prescribed No Has compression in place as prescribed N/A Has offloadiing in place as prescribed N/A Experienced any changes in pain level or No management Left Footwear Regular Shoe Right Footwear Regular Shoe Pain Scale: 0-10 Numeric Is Patient Pain Free? Yes Lower Extremity Assessment/ Foot Assessment/ Toe Nail Assessment Right -Posterior Tibial Palpable No -Posterior Tibial Doppler Monophasic -Dorsalis Pedis Palpable No -Dorsalis Pedis Doppler Multiphasic -Extremity Color Pale -Hair Growth on Legs No -Hair Growth on Toes No -Temperature of Extremity Warm -Thick Yes -Discolored Yes -Deformed No -Improper Length & Hygeine No Left -Posterior Tibial Palpable No -Posterior Tibial Doppler Monophasic -Dorsalis Pedis Palpable No -Dorsalis Pedis Doppler Monophasic -Hair Growth on Legs No -Hair Growth on Toes No -Temperature of Extremity Warm -Prior Foot Ulcer No -Charcot Joint No -Prior Amputation No -Thick Yes -Discolored Yes -Deformed No -Improper Length & Hygeine No Neuropathy Assessment Feet - Top Side and Bottom <Entered> (a) (a) 1 - + WC - Nurse 1 - General Ulcer Measurement Start: 03/16/21 10:41 Freq: Status: Active Protocol: Activity Type Activity Date Activity User E-Sign Co-Sign Detail Recorded Client Recorded Date Recorded By Document 03/16/21 10:41 ML [id number] 03/16/21 10:54 ML Edit Result 03/16/21 10:41 ML (1) [id number] 03/16/21 11:01 AK (1) Right Calf (cm) => 34.6 Right Ankle (cm) => 20 Left Calf (cm) => 34.3 Left Ankle (cm) => 20 03/16/21 10:41 Wound Center Nurse 1 LEFT 5TH TOE -Current Size (cm) - Length 0.8 -Current Size (cm) - Width 0.7 -Current Size (cm) - Depth 0.4 -Total Square Cm 0.56 -Photo Taken Yes -Exudate Amt Medium -Exudate Type Serosanguineous -Wound Margin Distinct, Outline Attached -Granulation Amt Medium (34-66%) -Slough/Fibrin Yes -Necrosis Amt Medium (34-66%) -Texture (Niya-wound Skin Appearance) Assessed -Moisture (Niya-wound Skin Appearance) Assessed, Maceration -Color (Niya-wound Skin Appearance) Assessed -Temperature (Niya-wound Skin No Abnormality Appearance) (Pt Warm) -Tenderness on Palpation (Niya-wound No Skin Appearance) -Ulcer Cleansing Rinsed/ Irrigated with Saline -Foul Odor after Cleansing No -Anesthetic Used 5% Lidocaine Gel Right Calf (cm) 34.6 Right Ankle (cm) 20 Left Calf (cm) 34.3 Left Ankle (cm) 20 WC - Nurse 2 - General Ulcer CM Notes Start: 03/16/21 10:41 Freq: Status: Active Protocol: Activity Type Activity Date Activity User E-Sign Co-Sign Detail Recorded Client Recorded Date Recorded By Document 03/16/21 11:00 MW [id number] 03/16/21 11:05 MW 03/16/21 11:00 Wound Center Nurse 2 LEFT 5TH TOE -Time 11:00 -Correct Patient Yes -Correct Side, Site, Position Yes -Correct Procedure Yes -Procedure Performed Yes -Type of Procedure Debridement -Clinical Debridement Subcutaneous -Tissue Removed Subcutaneous -Post Debridement (cm) - Length 1.0 -Post Debridement (cm) - Width 1.0 -Post Debridement (cm) - Depth 0.5 -Total Square (Post) (cm) 1.00 -Area of Debridement (cm) - Length 1.0 -Area of Debridement (cm) - Width 1.0 -Total Square (Area) (cm) 1.00 -Tunneling No -Undermining/Tunneling No -Circular Undermining No -Wound/Ulcer Outcome Not Healed -Ulcer Cleansing Rinsed/ Irrigated with Saline -Foul Odor after Cleansing No -Bioengineered Tissue No -Bleeding Controlled with Pressure -Offloading No -Treatment Response Procedure Tolerated Well -Debridement - Subq, 1st 20sq cm Yes Pain Scale: 0-10 Numeric Is Patient Pain Free? Yes - Nurse 3 - General Ulcer D/C NN Start: 03/16/21 10:41 Freq: Status: Active Protocol: Activity Type Activity Date Activity User E-Sign Co-Sign Detail Recorded Client Recorded Date Recorded By Document 03/16/21 11:20 [facility] [id number] 03/16/21 11:20 [facility] 03/16/21 11:20 Wound Care Nurse 3 LEFT 5TH TOE -Ulcer Cleansing Rinsed/ Irrigated with Saline -Foul Odor after Cleansing No -Primary Dressing Applied Aquacel Extra -Primary Dressing Covered/Secured with Dry Gauze,Dry Gauze & Roll Gauze,Secured with Tape -Aquacel Extra 1 Treatment Response Procedure Tolerated Well Pain Scale: 0-10 Numeric Is Patient Pain Free? Yes WC - Visit Discharge Discharge Condition Stable Ambulatory Status Ambulatory, Walker Transportation HOSP TRANSPORT Assessment/Plan Assessment/Plan (1) Infected stasis ulcer of left lower extremity: CODE(S): I83.229 - Varicose veins of left lower extremity with both ulcer of unspecified site and inflammation; L97.929 - Non-pressure chronic ulcer of unspecified part of left lower leg with unspecified severity PLAN: Cultures obtained will call with results (2) Diabetic foot ulcers: CODE(S): E11.621 - Type 2 diabetes mellitus with foot ulcer; L97.509 - Non-pressure chronic ulcer of other part of unspecified foot with unspecified severity QUALIFIERS: Diabetic foot ulcer location: toe Diabetes mellitus type: type 2 Laterality: left Non-pressure ulcer stage: unspecified non-pressure ulcer stage Qualified Code(s): E11.621 - Type 2 diabetes mellitus with foot ulcer; L97.529 - Non-pressure chronic ulcer of other part of left foot with unspecified severity PLAN: Wash foot with antibacterial soap and apply Aquacel extra to wound base moistened cover with 2 x 2 and meaghan taped to fourth toe. (3) Cellulitis of foot: CODE(S): L03.119 - Cellulitis of unspecified part of limb
[2021-03-23 10:34] VITALS: BP 165/60; PULSE 83; RESP 18; TEMP 36.1
--- NOTE | 2021-03-23 12:55 | PCM.WC.PN ---
History of Present Illness Date of Service: 03/23/21 Chief Complaint: Follow-up left little toe intertriginous diabetic foot ulcer History of Wound: 75-year-old white female noticed about a month ago the ulcer appeared for unknown reasons The skin is warm to touch the entire fifth toe is red and she has a small ulcer on the medial side of the fifth toe. She has been using yeast cream in the area. The wound itself looks clean beefy base. She denies any pain she denies knowing how it started. Progress of Wound: The wound is not as deep as it was last week patient is going to be started on doxycycline for the infection. We will apply for skin substitute also. Patient is having a hard time with her dressing changes because all of her friends and family have Covid. We will get her home health care to come in for wound care only Subjective Subjective Patient admits she needs help with the dressings Objective Data Objective Data ROM punctuated intertriginous area between the fourth and fifth toe positive for cultures started on antibiotics we will continue using the Aquacel extra and meaghan taping it to the fourth toe for support Vital Signs: Vital Signs Temp Pulse Resp BP 97 F L 83 18 165/60 H 03/23/21 10:34 03/23/21 10:34 03/23/21 10:34 03/23/21 10:34 Lab / Micro Data Attestation: I reviewed the patient's lab results. Micro: Microbiology 03/16/21 11:00 Wound Abcess - Toe Gram Stain - Final 03/16/21 11:00 Wound Abcess - Toe Wound Culture - Final Staphylococcus epidermidis Enterococcus faecalis 03/16/21 11:00 Wound Abcess - Toe Anaerobic Culture - Final No anaerobic bacteria isolated. Physical Exam Const oriented x3 General Appearance: cooperative Exam Limitations: no limitations Resp normal respiratory effort Effort and Inspection: able to speak in complete sentences Auscultation: clear to auscultation bilaterally Cardio regular rate and regular rhythm Palpation: normal PMI Rate: regular rate Rhythm: regular rhythm GI Auscultation: normoactive bowel sounds Palpation: soft and no hepatosplenomegaly external exam normal Extremity normal to inspection General Extremity: normal exam except as noted Skin Wound Narrative: Left little toe very erythematous and warm to touch. Large ulcer on medial aspect of the little toe. Neuro oriented x3 Psych Appearance: grossly normal Speech: normal speech Thought Content: normal thought content Judgement: judgement good Debridement Note Debridement Note Wound debrided: Fifth toe diabetic foot ulcer Type of Debridement: Excisional debridement Anesthesia Used: 5% Lidocaine Gel Depth: in the subcutaneous layer Percentage of wound debrided: 100 Instrument Used: 3mm curette Tissue Removed: Fibrin Severity: Fat Layer Exposed Amount of bleeding with debridement: Mild Bleeding Controlled with: Compression and gauze Patient tolerated procedure: Patient tolerated procedure well Post-Debridement Measurements and Additional Note: Post-Debridement Measurements/Treatment - Nurse 1 - General Ulcer Assessment Start: 03/16/21 10:41 Freq: Status: Active Protocol: CYNTHIA Activity Type Activity Date Activity User E-Sign Co-Sign Detail Recorded Client Recorded Date Recorded By Document 03/16/21 10:41 ML [id number] 03/16/21 10:54 ML Edit Result 03/16/21 10:41 ML (1) [id number] 03/16/21 11:02 BMF Document 03/23/21 10:34 RB [id number] 03/23/21 10:45 RB (1) Right - Posterior Tibial Palpable => No - Posterior Tibial Doppler => Monophasic - Dorsalis Pedis Palpable => No - Dorsalis Pedis Doppler => Multiphasic - Extremity Color => Pale - Hair Growth on Legs => No - Hair Growth on Toes => No - Temperature of Extremity => Warm - Thick => Yes - Discolored => Yes - Deformed => No - Improper Length & Hygeine => No Left - Posterior Tibial Palpable => No - Posterior Tibial Doppler => Monophasic - Dorsalis Pedis Palpable => No - Dorsalis Pedis Doppler => Monophasic - Hair Growth on Legs => No - Hair Growth on Toes => No - Temperature of Extremity => Warm - Prior Foot Ulcer => No - Charcot Joint => No - Prior Amputation => No - Thick => Yes - Discolored => Yes - Deformed => No - Improper Length & Hygeine => No Feet - Top Side and Bottom => <Entered> (a) 03/16/21 03/23/21 10:41 10:34 - Today's Visit Information Type of service Initial Visit 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 ) Arrival Mode Ambulatory, Walker Transfer Assistance None Patient Identification Verified (Name & Yes Yes ) Patient Requires Transmission-Based No No Precautions Safety Precautions NA Temperature (97.8 F-99.1 F) 97 F L Temperature Source Temporal Vital Signs Pulse Rate (60-100) 73 83 Pulse Location Monitor Monitor Respiratory Rate (12-18) 18 18 Respiratory rate source Observation Observation Blood Pressure (90/60-120/80) 118/63 165/60 H Blood Pressure Mean (mm Hg) 81 95 Source Monitor Monitor Position Sitting Semi-Fowlers Blood Pressure Location Left Arm Left Arm History Since Last Visit- (Skip if this is Patient's initial visit) Have you changed medications since your No No last visit? Any new allergies or adverse reactions No No Had a fall/change in ADL's that may No No increase risk of falls Signs or symptoms of abuse and/or No No neglect since last visit Have you been in the hospital since your No No last visit? Has dressing in place as prescribed No Yes Has compression in place as prescribed N/A No Has offloadiing in place as prescribed N/A No Experienced any changes in pain level or No No management Left Footwear Regular Shoe Right Footwear Regular Shoe Pain Scale: 0-10 Numeric Is Patient Pain Free? Yes Yes Lower Extremity Assessment/ Foot Assessment/ Toe Nail Assessment Right -Posterior Tibial Palpable No -Posterior Tibial Doppler Monophasic -Dorsalis Pedis Palpable No -Dorsalis Pedis Doppler Multiphasic -Extremity Color Pale -Hair Growth on Legs No -Hair Growth on Toes No -Temperature of Extremity Warm -Thick Yes -Discolored Yes -Deformed No -Improper Length & Hygeine No Left -Posterior Tibial Palpable No -Posterior Tibial Doppler Monophasic -Dorsalis Pedis Palpable No -Dorsalis Pedis Doppler Monophasic -Hair Growth on Legs No -Hair Growth on Toes No -Temperature of Extremity Warm -Prior Foot Ulcer No -Charcot Joint No -Prior Amputation No -Thick Yes -Discolored Yes -Deformed No -Improper Length & Hygeine No Neuropathy Assessment Feet - Top Side and Bottom <Entered> (a) (a) 1 - + WC - Nurse 1 - General Ulcer Measurement Start: 03/16/21 10:41 Freq: Status: Active Protocol: Activity Type Activity Date Activity User E-Sign Co-Sign Detail Recorded Client Recorded Date Recorded By Document 03/16/21 10:41 ML [id number] 03/16/21 10:54 ML Edit Result 03/16/21 10:41 ML (1) [id number] 03/16/21 11:01 AK Document 03/23/21 10:34 RB [id number] 03/23/21 10:45 RB (1) Right Calf (cm) => 34.6 Right Ankle (cm) => 20 Left Calf (cm) => 34.3 Left Ankle (cm) => 20 03/16/21 03/23/21 10:41 10:34 Wound Center Nurse 1 #7 LEFT 5TH TOE -Combined with other wound No -Current Size (cm) - Length 0.8 1 -Current Size (cm) - Width 0.7 1 -Current Size (cm) - Depth 0.4 0.3 -Total Square Cm 0.56 1 -Photo Taken Yes -Tunneling No -Undermining/Tunneling No -Circular Undermining No -Exudate Amt Medium Medium -Exudate Type Serosanguineous Serosanguineous -Wound Margin Distinct, Distinct, Outline Outline Attached Attached -Granulation Amt Medium (34-66%) Medium (34-66%) -Granulation Quality [place] -Slough/Fibrin Yes -Necrosis Amt Medium (34-66%) Small (1-33%) -Necrotic Tissue Type Adherent Slough -Structure Exposed N/A -Texture (Niya-wound Skin Appearance) Assessed Assessed -Moisture (Niya-wound Skin Appearance) Assessed, Assessed, Maceration Maceration -Color (Niya-wound Skin Appearance) Assessed Assessed -Temperature (Niya-wound Skin No Abnormality No Abnormality Appearance) (Pt Warm) (Pt Warm) -Tenderness on Palpation (Niya-wound No No Skin Appearance) -Ulcer Cleansing Rinsed/ Wound Cleanser Irrigated with Saline -Foul Odor after Cleansing No No -Anesthetic Used 5% Lidocaine 5% Lidocaine Gel Gel Right Calf (cm) 34.6 Right Ankle (cm) 20 Left Calf (cm) 34.3 Left Ankle (cm) 20 WC - Nurse 2 - General Ulcer CM Notes Start: 03/16/21 10:41 Freq: Status: Active Protocol: Activity Type Activity Date Activity User E-Sign Co-Sign Detail Recorded Client Recorded Date Recorded By Document 03/16/21 11:00 MW [id number] 03/16/21 11:05 MW Document 03/23/21 10:57 MW [id number] 03/23/21 11:02 MW 03/16/21 03/23/21 11:00 10:57 Wound Center Nurse 2 #7 LEFT 5TH TOE -Time 11:00 11:00 -Correct Patient Yes Yes -Correct Side, Site, Position Yes Yes -Correct Procedure Yes Yes -Procedure Performed Yes Yes -Type of Procedure Debridement Debridement -Clinical Debridement Subcutaneous Subcutaneous -Tissue Removed Subcutaneous Subcutaneous -Post Debridement (cm) - Length 1.0 1.0 -Post Debridement (cm) - Width 1.0 1.0 -Post Debridement (cm) - Depth 0.5 0.3 -Total Square (Post) (cm) 1.00 1.00 -Area of Debridement (cm) - Length 1.0 1.0 -Area of Debridement (cm) - Width 1.0 1.0 -Total Square (Area) (cm) 1.00 1.00 -Tunneling No No -Undermining/Tunneling No No -Circular Undermining No No -Wound/Ulcer Outcome Not Healed Not Healed -Ulcer Cleansing Rinsed/ Rinsed/ Irrigated with Irrigated with Saline Saline -Foul Odor after Cleansing No No -Bioengineered Tissue No No -Bleeding Controlled with Pressure Pressure -Offloading No No -Treatment Response Procedure Procedure Tolerated Well Tolerated Well -Debridement - Subq, 1st 20sq cm Yes Yes Pain Scale: 0-10 Numeric Is Patient Pain Free? Yes Yes WC - Nurse 3 - General Ulcer D/C NN Start: 03/16/21 10:41 Freq: Status: Active Protocol: Activity Type Activity Date Activity User E-Sign Co-Sign Detail Recorded Client Recorded Date Recorded By Document 03/16/21 11:20 [facility] [id number] 03/16/21 11:20 [facility] Document 03/23/21 11:10 [facility] [id number] 03/23/21 11:12 [facility] 03/16/21 03/23/21 11:20 11:10 Wound Care Nurse 3 #7 LEFT 5TH TOE -Ulcer Cleansing Rinsed/ Rinsed/ Irrigated with Irrigated with Saline Saline -Foul Odor after Cleansing No No -Primary Dressing Applied Aquacel Extra Aquacel Extra -Primary Dressing Covered/Secured with Dry Gauze,Dry Dry Gauze & Gauze & Roll Roll Gauze, Gauze,Secured Secured with with Tape Tape -Aquacel Extra 1 1 Treatment Response Procedure Procedure Tolerated Well Tolerated Well Pain Scale: 0-10 Numeric Is Patient Pain Free? Yes Yes WC - Visit Discharge Discharge Condition Stable Stable Ambulatory Status Ambulatory, Ambulatory, Walker Walker Transportation HOSP TRANSPORT Assessment/Plan Assessment/Plan (1) Infected stasis ulcer of left lower extremity: CODE(S): I83.229 - Varicose veins of left lower extremity with both ulcer of unspecified site and inflammation; L97.929 - Non-pressure chronic ulcer of unspecified part of left lower leg with unspecified severity PLAN: Cultures obtained patient started on doxycycline 100 mg twice daily for 14 days #28 (2) Diabetic foot ulcers: CODE(S): E11.621 - Type 2 diabetes mellitus with foot ulcer; L97.509 - Non-pressure chronic ulcer of other part of unspecified foot with unspecified severity QUALIFIERS: Diabetic foot ulcer location: toe Diabetes mellitus type: type 2 Laterality: left Non-pressure ulcer stage: unspecified non-pressure ulcer stage Qualified Code(s): E11.621 - Type 2 diabetes mellitus with foot ulcer; L97.529 - Non-pressure chronic ulcer of other part of left foot with unspecified severity PLAN: Wash foot with antibacterial soap and apply Aquacel extra to wound base moistened cover with 2 x 2 and meaghan taped to fourth toe. (3) Cellulitis of foot: CODE(S): L03.119 - Cellulitis of unspecified part of limb
== END 2021-04-01 23:59 ==
LOC: WC 10:30
PROVIDERS: PCP Internal Medicine; Visit Provider Nurse Practitioner
DX: I83.228 Varicose veins of left lower extremity with both ulcer of other part of lower extremity and inflammation (principal); L97.822 Non-pressure chronic ulcer of other part of left lower leg with fat layer exposed; E11.621 Type 2 diabetes mellitus with foot ulcer; L03.119 Cellulitis of unspecified part of limb; D64.9 Anemia, unspecified; E03.9 Hypothyroidism, unspecified; E11.22 Type 2 diabetes mellitus with diabetic chronic kidney disease; E61.1 Iron deficiency; E66.01 Morbid (severe) obesity due to excess calories; E78.5 Hyperlipidemia, unspecified; G47.30 Sleep apnea, unspecified; I13.10 Hypertensive heart and chronic kidney disease without heart failure, with stage 1 through stage 4 chronic kidney disease, or unspecified chronic kidney disease; F32.A Depression, unspecified; N18.30 Chronic kidney disease, stage 3 unspecified; K21.9 Gastro-esophageal reflux disease without esophagitis; Z68.41 Body mass index [BMI] 40.0-44.9, adult; Z79.82 Long term (current) use of aspirin; Z79.84 Long term (current) use of oral hypoglycemic drugs
CPT/HCPCS: 11042; 87070; 87075; 87077; 87186; 87205; 99213; G0463

== ENCOUNTER 2021-04-27 10:30 | Outpatient (RCR) | payer MEDICARE, SELFPAY ==
[2021-04-02 00:06] VITALS: BP 165/60; PULSE 83; RESP 18; TEMP 36.1
[2021-04-20 10:12] VITALS: BP 141/37; PULSE 71; RESP 16; TEMP 36.2
--- NOTE | 2021-04-20 13:02 | PCM.WC.PN ---
History of Present Illness Date of Service: 04/20/21 Chief Complaint: Follow-up left little toe intertriginous diabetic foot ulcer History of Wound: 75-year-old white female noticed about a month ago the ulcer appeared for unknown reasons The skin is warm to touch the entire fifth toe is red and she has a small ulcer on the medial side of the fifth toe. She has been using yeast cream in the area. The wound itself looks clean beefy base. She denies any pain she denies knowing how it started. Progress of Wound: Patient has not been seen in almost a month because of transportation issues. Patient has been faithfully using her Aquacel extra to toe and doing very well. It is filling in nicely. Patient was approved though for epi fix him we will apply #1 today Subjective Subjective Patient very excited that she has not had to do any dressing changes Objective Data Objective Data Still has a open area on intentioned has area of the fifth toe. Debrided well blood easily appears clean still complaining of some pain on the outside of her dorsal foot. Vital Signs: Vital Signs Temp Pulse Resp BP 97.2 F L 71 16 141/37 H 04/20/21 10:12 04/20/21 10:12 04/20/21 10:12 04/20/21 10:12 Oxygen Delivery Method Room Air Physical Exam Const oriented x3 General Appearance: cooperative Exam Limitations: no limitations Resp normal respiratory effort Effort and Inspection: able to speak in complete sentences Auscultation: clear to auscultation bilaterally Cardio regular rate and regular rhythm Palpation: normal PMI Rate: regular rate Rhythm: regular rhythm GI Auscultation: normoactive bowel sounds Palpation: soft and no hepatosplenomegaly external exam normal Extremity normal to inspection General Extremity: normal exam except as noted Skin Wound Narrative: Left little toe very erythematous and warm to touch. Large ulcer on medial aspect of the little toe. Neuro oriented x3 Psych Appearance: grossly normal Speech: normal speech Thought Content: normal thought content Judgement: judgement good Debridement Note Debridement Note Wound debrided: Left fifth toe ulcer Type of Debridement: Excisional debridement Anesthesia Used: 5% Lidocaine Gel Depth: in the subcutaneous layer Percentage of wound debrided: 100 Instrument Used: 3mm curette Tissue Removed: Fibrin and devitalized tissue Severity: Fat Layer Exposed Amount of bleeding with debridement: Mild Bleeding Controlled with: Compression and gauze Patient tolerated procedure: Patient tolerated procedure well Post-Debridement Measurements and Additional Note: Post-Debridement Measurements/Treatment - Nurse 1 - General Ulcer Assessment Start: 04/20/21 10:11 Freq: Status: Active Protocol: CYNTHIA Activity Type Activity Date Activity User E-Sign Co-Sign Detail Recorded Client Recorded Date Recorded By Document 04/20/21 10:12 [facility] [id number] 04/20/21 10:17 [facility] 04/20/21 10:12 WC - Today's Visit Information Type of service 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 ) Arrival Mode Ambulatory, Walker Transfer Assistance None Patient Identification Verified (Name & Yes ) Patient Requires Transmission-Based No Precautions Vital Signs Temperature (97.8 F-99.1 F) 97.2 F L Temperature Source Temporal Pulse Rate (60-100) 71 Pulse Location Monitor Respiratory Rate (12-18) 16 Respiratory rate source Observation Oxygen Delivery Method Room Air Blood Pressure (90/60-120/80) 141/37 H Blood Pressure Mean (mm Hg) 71 Source Monitor Position Sitting Blood Pressure Location Left Forearm History Since Last Visit- (Skip if this is Patient's initial visit) Have you changed medications since your No last visit? Any new allergies or adverse reactions No Had a fall/change in ADL's that may No increase risk of falls Signs or symptoms of abuse and/or No neglect since last visit Have you been in the hospital since your No last visit? Has dressing in place as prescribed Yes Has compression in place as prescribed N/A Has offloadiing in place as prescribed N/A Experienced any changes in pain level or No management Left Footwear Regular Shoe Right Footwear Regular Shoe Pain Scale: 0-10 Numeric Is Patient Pain Free? Yes [facility] Nurse 1 - General Ulcer Measurement Start: 04/20/21 10:11 Freq: Status: Active Protocol: Activity Type Activity Date Activity User E-Sign Co-Sign Detail Recorded Client Recorded Date Recorded By Document 04/20/21 10:12 [facility] [id number] 04/20/21 10:17 [facility] 04/20/21 10:12 Wound Center Nurse 1 #7 LEFT 5TH TOE -Combined with other wound No -Current Size (cm) - Length 1.4 -Current Size (cm) - Width 0.6 -Current Size (cm) - Depth 0.2 -Total Square Cm 0.84 -Photo Taken No -Epithelialization None Present -Tunneling No -Undermining/Tunneling No -Circular Undermining No -Exudate Amt Medium -Exudate Type Serosanguineous -Wound Margin Distinct, Outline Attached -Granulation Amt Medium (34-66%) -Granulation Quality Red -Slough/Fibrin Yes -Necrosis Amt Medium (34-66%) -Necrotic Tissue Type Adherent Slough -Texture (Niya-wound Skin Appearance) Assessed, Scarring -Moisture (Niya-wound Skin Appearance) Assessed, Maceration -Color (Niya-wound Skin Appearance) Assessed, Erythema,Palor -Temperature (Niya-wound Skin No Abnormality Appearance) (Pt Warm) -Tenderness on Palpation (Niya-wound Yes Skin Appearance) -Ulcer Cleansing Rinsed/ Irrigated with Saline -Foul Odor after Cleansing No -Anesthetic Used 5% Lidocaine Gel WC - Nurse 2 - General Ulcer CM Notes Start: 04/20/21 10:11 Freq: Status: Active Protocol: Activity Type Activity Date Activity User E-Sign Co-Sign Detail Recorded Client Recorded Date Recorded By Document 04/20/21 10:30 MW [id number] 04/20/21 10:39 MW 04/20/21 10:30 Wound Center Nurse 2 -Time 10:30 -Correct Patient Yes -Correct Side, Site, Position Yes -Correct Procedure Yes -Procedure Performed Yes -Type of Procedure Incision & Drainage -Clinical Debridement Subcutaneous -Tissue Removed Subcutaneous -Post Debridement (cm) - Length 1.0 -Post Debridement (cm) - Width 0.9 -Post Debridement (cm) - Depth 0.2 -Total Square (Post) (cm) 0.90 -Area of Debridement (cm) - Length 1.0 -Area of Debridement (cm) - Width 0.9 -Total Square (Area) (cm) 0.90 -Tunneling No -Undermining/Tunneling No -Circular Undermining No -Wound/Ulcer Outcome Not Healed -Ulcer Cleansing Rinsed/ Irrigated with Saline -Foul Odor after Cleansing No -Bioengineered Tissue Yes -Type of Bioengineered Tissue Epifix 18mm Disc -Expiration Date 12/01/25 -Product Lot Number [id number] -Percent Used 100 -Lot number of Saline Used [id number] -Bleeding Controlled with Pressure -Offloading No -Treatment Response Procedure Tolerated Well -Debridement - Subq, 1st 20sq cm No -Apply Skin Sub - 1st 25 sq cm - Feet 1 -Epifix 18mm Disc 3 Pain Scale: 0-10 Numeric Is Patient Pain Free? Yes WC - Nurse 3 - General Ulcer D/C NN Start: 04/20/21 10:11 Freq: Status: Active Protocol: Activity Type Activity Date Activity User E-Sign Co-Sign Detail Recorded Client Recorded Date Recorded By Document 04/20/21 12:26 JIMBO [id number] 04/20/21 12:26 JIMBO 04/20/21 12:26 Wound Care Nurse 3 #7 LEFT 5TH TOE -Ulcer Cleansing Rinsed/ Irrigated with Saline -Foul Odor after Cleansing No -Negative Pressure Wound Therapy N/A -Primary Dressing Covered/Secured with Dry Gauze, Secured with Tape Pain Scale: 0-10 Numeric Is Patient Pain Free? Yes WC - Visit Discharge Discharge Condition Stable Ambulatory Status Ambulatory Transportation Private Auto Medication Reconcilliation completed & No provided to patient/care provider Clinical Summary of Care Provided Yes Assessment/Plan Assessment/Plan (1) Infected stasis ulcer of left lower extremity: CODE(S): I83.229 - Varicose veins of left lower extremity with both ulcer of unspecified site and inflammation; L97.929 - Non-pressure chronic ulcer of unspecified part of left lower leg with unspecified severity (2) Diabetic foot ulcers: CODE(S): E11.621 - Type 2 diabetes mellitus with foot ulcer; L97.509 - Non-pressure chronic ulcer of other part of unspecified foot with unspecified severity QUALIFIERS: Diabetic foot ulcer location: toe Diabetes mellitus type: type 2 Laterality: left Non-pressure ulcer stage: unspecified non-pressure ulcer stage Qualified Code(s): E11.621 - Type 2 diabetes mellitus with foot ulcer; L97.529 - Non-pressure chronic ulcer of other part of left foot with unspecified severity PLAN: Right foot toe washed with antibacterial soap and epi fix #1 applied to wound base covered with a GenTeal Adaptic Steri-Strips then Aquacel extra over top with padded dressing. Patient was told not to shower for x1 week follow-up in 1 week for reevaluation (3) Cellulitis of foot: CODE(S): L03.119 - Cellulitis of unspecified part of limb
[2021-04-27 10:50] VITALS: BP 111/39; PULSE 75; RESP 20; TEMP 36.1
--- NOTE | 2021-04-27 12:34 | PCM.WC.PN ---
History of Present Illness Date of Service: 04/27/21 Chief Complaint: Follow-up left little toe intertriginous diabetic foot ulcer History of Wound: 75-year-old white female noticed about a month ago the ulcer appeared for unknown reasons The skin is warm to touch the entire fifth toe is red and she has a small ulcer on the medial side of the fifth toe. She has been using yeast cream in the area. The wound itself looks clean beefy base. She denies any pain she denies knowing how it started. Progress of Wound: After 1 epi fix the intertriginous area is almost healed. We will apply #2 today. Much smaller and no sign of infection measurements are flatter. Subjective Subjective Patient is very happy that it is healing quickly Objective Data Objective Data Wound is flatter with no depth. Measurements are smaller no sign of erythema or redness to the toe. We will apply epifix #2 Vital Signs: Vital Signs Temp Pulse Resp BP 97 F L 75 20 H 111/39 L 04/27/21 10:50 04/27/21 10:50 04/27/21 10:50 04/27/21 10:50 Oxygen Delivery Method Room Air Lab / Micro Data Attestation: I reviewed the patient's lab results. Physical Exam Const oriented x3 General Appearance: cooperative Exam Limitations: no limitations Resp normal respiratory effort Effort and Inspection: able to speak in complete sentences Auscultation: clear to auscultation bilaterally Cardio regular rate and regular rhythm Palpation: normal PMI Rate: regular rate Rhythm: regular rhythm GI Auscultation: normoactive bowel sounds Palpation: soft and no hepatosplenomegaly external exam normal Extremity normal to inspection General Extremity: normal exam except as noted Skin Wound Narrative: Left little toe very erythematous and warm to touch. Large ulcer on medial aspect of the little toe. Neuro oriented x3 Psych Appearance: grossly normal Speech: normal speech Thought Content: normal thought content Judgement: judgement good Debridement Note Debridement Note Wound debrided: Right fifth toe Type of Debridement: Excisional debridement Anesthesia Used: 5% Lidocaine Gel Depth: Down to and including healthy tissue Percentage of wound debrided: 100 Instrument Used: 3mm curette Tissue Removed: Fibrin Severity: Limited To Skin Breakdown Amount of bleeding with debridement: None Bleeding Controlled with: Pressure Post-Debridement Measurements and Additional Note: Post-Debridement Measurements/Treatment WC - Nurse 1 - General Ulcer Assessment Start: 04/20/21 10:11 Freq: Status: Active Protocol: CYNTHIA Activity Type Activity Date Activity User E-Sign Co-Sign Detail Recorded Client Recorded Date Recorded By Document 04/20/21 10:12 [facility] [id number] 04/20/21 10:17 [facility] Document 04/27/21 10:50 [place] [id number] 04/27/21 10:56 [place] 04/20/21 04/27/21 10:12 10:50 - Today's Visit Information Type of service Follow-up Visit Follow-up Visit (Physician/CAREER DEVELOPMENT MANAGER (Physician/CAREER DEVELOPMENT MANAGER ) ) Arrival Mode Ambulatory, Ambulatory Walker Transfer Assistance None Patient Identification Verified (Name & Yes ) Patient Requires Transmission-Based No Precautions Vital Signs Temperature (97.8 F-99.1 F) 97.2 F L 97 F L Temperature Source Temporal Temporal Pulse Rate (60-100) 71 75 Pulse Location Monitor Monitor Respiratory Rate (12-18) 16 20 H Respiratory rate source Observation Observation Oxygen Delivery Method Room Air Room Air Blood Pressure (90/60-120/80) 141/37 H 111/39 L Blood Pressure Mean (mm Hg) 71 63 Source Monitor Monitor Position Sitting Sitting Blood Pressure Location Left Forearm Right Arm History Since Last Visit- (Skip if this is Patient's initial visit) Have you changed medications since your No last visit? Any new allergies or adverse reactions No Had a fall/change in ADL's that may No increase risk of falls Signs or symptoms of abuse and/or No neglect since last visit Have you been in the hospital since your No last visit? Has dressing in place as prescribed Yes Yes Has compression in place as prescribed N/A Yes Has offloadiing in place as prescribed N/A N/A Experienced any changes in pain level or No No management Left Footwear Regular Shoe Regular Shoe Right Footwear Regular Shoe Regular Shoe Pain Scale: 0-10 Numeric Is Patient Pain Free? Yes Yes - Nurse 1 - General Ulcer Measurement Start: 04/20/21 10:11 Freq: Status: Active Protocol: Activity Type Activity Date Activity User E-Sign Co-Sign Detail Recorded Client Recorded Date Recorded By Document 04/20/21 10:12 [facility] [id number] 04/20/21 10:17 [facility] Document 04/27/21 10:50 [place] [id number] 04/27/21 10:56 [place] 04/20/21 04/27/21 10:12 10:50 Wound Center Nurse 1 #7 LEFT 5TH TOE -Combined with other wound No -Current Size (cm) - Length 1.4 1 -Current Size (cm) - Width 0.6 0.6 -Current Size (cm) - Depth 0.2 0.2 -Total Square Cm 0.84 0.6 -Photo Taken No -Epithelialization None Present -Tunneling No -Undermining/Tunneling No -Circular Undermining No -Exudate Amt Medium Small -Exudate Type Serosanguineous Serosanguineous -Wound Margin Distinct, Flat & Intact Outline Attached -Granulation Amt Medium (34-66%) Large (67-100%) -Granulation Quality Red Pale,[place] -Slough/Fibrin Yes No -Necrosis Amt Medium (34-66%) -Necrotic Tissue Type Adherent Slough -Texture (Niya-wound Skin Appearance) Assessed, Assessed Scarring -Moisture (Niya-wound Skin Appearance) Assessed, Assessed, Maceration Maceration -Color (Niya-wound Skin Appearance) Assessed, Assessed Erythema,Palor -Temperature (Niya-wound Skin No Abnormality No Abnormality Appearance) (Pt Warm) (Pt Warm) -Tenderness on Palpation (Niya-wound Yes No Skin Appearance) -Ulcer Cleansing Rinsed/ Soap and Water Irrigated with Saline -Foul Odor after Cleansing No No -Anesthetic Used 5% Lidocaine 4% Lidocaine Gel Solution WC - Nurse 2 - General Ulcer CM Notes Start: 04/20/21 10:11 Freq: Status: Active Protocol: Activity Type Activity Date Activity User E-Sign Co-Sign Detail Recorded Client Recorded Date Recorded By Document 04/20/21 10:30 MW [id number] 04/20/21 10:39 MW Document 04/27/21 11:17 MW [id number] 04/27/21 11:22 MW 04/20/21 04/27/21 10:30 11:17 Wound Center Nurse 2 #7 LEFT 5TH TOE -Time 10:30 11:17 -Correct Patient Yes Yes -Correct Side, Site, Position Yes Yes -Correct Procedure Yes Yes -Procedure Performed Yes Yes -Type of Procedure Incision & Debridement Drainage -Clinical Debridement Subcutaneous Subcutaneous -Tissue Removed Subcutaneous Subcutaneous -Post Debridement (cm) - Length 1.0 0.4 -Post Debridement (cm) - Width 0.9 0.3 -Post Debridement (cm) - Depth 0.2 0.2 -Total Square (Post) (cm) 0.90 0.12 -Area of Debridement (cm) - Length 1.0 0.4 -Area of Debridement (cm) - Width 0.9 0.3 -Total Square (Area) (cm) 0.90 0.12 -Tunneling No No -Undermining/Tunneling No No -Circular Undermining No No -Wound/Ulcer Outcome Not Healed Not Healed -Ulcer Cleansing Rinsed/ Rinsed/ Irrigated with Irrigated with Saline Saline -Foul Odor after Cleansing No No -Bioengineered Tissue Yes Yes -Type of Bioengineered Tissue Epifix 18mm Epifix 18mm Disc Disc -Expiration Date 12/01/25 -Product Lot Number [id number] -Percent Used 100 -Lot number of Saline Used [id number] -Bleeding Controlled with Pressure Pressure -Offloading No No -Treatment Response Procedure Procedure Tolerated Well Tolerated Well -Debridement - Subq, 1st 20sq cm No No -Apply Skin Sub - 1st 25 sq cm - Feet 1 1 -Epifix 18mm Disc 3 3 Pain Scale: 0-10 Numeric Is Patient Pain Free? Yes Yes - Nurse 3 - General Ulcer D/C NN Start: 04/20/21 10:11 Freq: Status: Active Protocol: Activity Type Activity Date Activity User E-Sign Co-Sign Detail Recorded Client Recorded Date Recorded By Document 04/20/21 12:26 DE [id number] 04/20/21 12:26 DE Document 04/27/21 11:38 DE [id number] 04/27/21 11:38 DE 04/20/21 04/27/21 12:26 11:38 Wound Care Nurse 3 #7 LEFT 5TH TOE -Ulcer Cleansing Rinsed/ Irrigated with Saline -Foul Odor after Cleansing No -Negative Pressure Wound Therapy N/A -Primary Dressing Applied Aquacel Extra -Primary Dressing Covered/Secured with Dry Gauze, Dry Gauze, Secured with Secured with Tape Tape -Aquacel Extra 1 Pain Scale: 0-10 Numeric Is Patient Pain Free? Yes Yes - Visit Discharge Discharge Condition Stable Stable Ambulatory Status Ambulatory Ambulatory, Walker Transportation Private Auto Private Auto Medication Reconcilliation completed & No No provided to patient/care provider Clinical Summary of Care Provided Yes Yes Assessment/Plan Assessment/Plan (1) Infected stasis ulcer of left lower extremity: CODE(S): I83.229 - Varicose veins of left lower extremity with both ulcer of unspecified site and inflammation; L97.929 - Non-pressure chronic ulcer of unspecified part of left lower leg with unspecified severity (2) Diabetic foot ulcers: CODE(S): E11.621 - Type 2 diabetes mellitus with foot ulcer; L97.509 - Non-pressure chronic ulcer of other part of unspecified foot with unspecified severity QUALIFIERS: Diabetic foot ulcer location: toe Diabetes mellitus type: type 2 Laterality: left Non-pressure ulcer stage: unspecified non-pressure ulcer stage Qualified Code(s): E11.621 - Type 2 diabetes mellitus with foot ulcer; L97.529 - Non-pressure chronic ulcer of other part of left foot with unspecified severity PLAN: Right foot toe washed with antibacterial soap and epi fix #2 applied to wound base covered with a GenTeal Adaptic Steri-Strips then Aquacel extra over top with padded dressing. Patient was told not to shower for x1 week follow-up in 1 week for reevaluation (3) Cellulitis of foot: CODE(S): L03.119 - Cellulitis of unspecified part of limb
== END 2021-05-02 23:59 ==
LOC: WC 10:30
PROVIDERS: PCP Internal Medicine; Visit Provider Nurse Practitioner
DX: E11.621 Type 2 diabetes mellitus with foot ulcer (principal); L97.522 Non-pressure chronic ulcer of other part of left foot with fat layer exposed; I83.92 Asymptomatic varicose veins of left lower extremity; L03.119 Cellulitis of unspecified part of limb
CPT/HCPCS: 15275; Q4186

== ENCOUNTER 2021-05-25 10:00 | Outpatient (RCR) | payer MEDICARE, SELFPAY ==
[2021-05-03 00:13] VITALS: BP 111/39; PULSE 75; RESP 20; TEMP 36.1
[2021-05-04 11:40] VITALS: BP 134/45; PULSE 69; RESP 16; TEMP 35.5
--- NOTE | 2021-05-04 12:50 | PN.PCM_ITS ---
History of Present Illness Date of Service: 05/04/21 Chief Complaint: Follow-up left little toe intertriginous diabetic foot ulcer History of Wound: 75-year-old white female noticed about a month ago the ulcer appeared for unknown reasons The skin is warm to touch the entire fifth toe is red and she has a small ulcer on the medial side of the fifth toe. She has been using yeast cream in the area. The wound itself looks clean beefy base. She denies any pain she denies knowing how it started. Progress of Wound: The intertriginous area between her fourth and fifth toe are doing very well much smaller and healing well with epi fix. Subjective Subjective Patient is very pleased with outcome Objective Data Objective Data Continues to measure smaller no sign of infection applied epi fix #3 today hopefully will be healed soon Vital Signs: Vital Signs Temp Pulse Resp BP 96 F L 69 16 134/45 H 05/04/21 11:40 05/04/21 11:40 05/04/21 11:40 05/04/21 11:40 Oxygen Delivery Method Room Air Lab / Micro Data Attestation: I reviewed the patient's lab results. Physical Exam Const oriented x3 General Appearance: cooperative Exam Limitations: no limitations Resp normal respiratory effort Effort and Inspection: able to speak in complete sentences Auscultation: clear to auscultation bilaterally Cardio regular rate and regular rhythm Palpation: normal PMI Rate: regular rate Rhythm: regular rhythm GI Auscultation: normoactive bowel sounds Palpation: soft and no hepatosplenomegaly external exam normal Extremity normal to inspection General Extremity: normal exam except as noted Skin Wound Narrative: Left little toe very erythematous and warm to touch. Large ulcer on medial aspect of the little toe. Neuro oriented x3 Psych Appearance: grossly normal Speech: normal speech Thought Content: normal thought content Judgement: judgement good Debridement Note Debridement Note Wound debrided: Right fifth toe Type of Debridement: Excisional debridement Anesthesia Used: 5% Lidocaine Gel Depth: Down to and including healthy tissue Percentage of wound debrided: 100 Instrument Used: 3mm curette Tissue Removed: Fibrin devitalized tissue Severity: Limited To Skin Breakdown Amount of bleeding with debridement: Mild Bleeding Controlled with: Pressure Patient tolerated procedure: Patient tolerated procedure well Post-Debridement Measurements and Additional Note: Post-Debridement Measurements/Treatment WC - Nurse 1 - General Ulcer Assessment Start: 05/04/21 11:40 Freq: Status: Active Protocol: CYNTHIA Activity Type Activity Date Activity User E-Sign Co-Sign Detail Recorded Client Recorded Date Recorded By Document 05/04/21 11:40 [facility] [id number] 05/04/21 11:44 [facility] 05/04/21 11:40 - Today's Visit Information Type of service Follow-up Visit (Physician/PATIENT CARE PROVIDER ) Arrival Mode Ambulatory, Walker Transfer Assistance None Patient Identification Verified (Name & Yes ) Finger Stick Blood Sugar(mg/dl) (if 124 indicated): Blood Sugar Stated by Patient Vital Signs Temperature (97.8 F-99.1 F) 96 F L Temperature Source Temporal Pulse Rate (60-100) 69 Pulse Location Monitor Respiratory Rate (12-18) 16 Respiratory rate source Observation Oxygen Delivery Method Room Air Blood Pressure (90/60-120/80) 134/45 H Blood Pressure Mean (mm Hg) 74 Source Monitor Position Sitting Blood Pressure Location Right Arm History Since Last Visit- (Skip if this is Patient's initial visit) Have you changed medications since your No last visit? Any new allergies or adverse reactions No Had a fall/change in ADL's that may No increase risk of falls Signs or symptoms of abuse and/or No neglect since last visit Have you been in the hospital since your No last visit? Has dressing in place as prescribed Yes Has compression in place as prescribed N/A Has offloadiing in place as prescribed N/A Experienced any changes in pain level or No management Left Footwear Regular Shoe Right Footwear Regular Shoe Pain Scale: 0-10 Numeric Is Patient Pain Free? Yes - Nurse 1 - General Ulcer Measurement Start: 05/04/21 11:40 Freq: Status: Active Protocol: Activity Type Activity Date Activity User E-Sign Co-Sign Detail Recorded Client Recorded Date Recorded By Document 05/04/21 11:40 [facility] [id number] 05/04/21 11:44 [facility] 05/04/21 11:40 Wound Center Nurse 1 #7 LEFT 5TH TOE -Combined with other wound No -Current Size (cm) - Length 0.9 -Current Size (cm) - Width 1 -Current Size (cm) - Depth 0.1 -Total Square Cm 0.9 -Date of Last Picture (Recall this 05/04/21 field) -Photo Taken Yes -Epithelialization None Present -Tunneling No -Undermining/Tunneling No -Circular Undermining No -Exudate Amt Medium -Exudate Type Serosanguineous -Wound Margin Distinct, Outline Attached -Granulation Amt None Present (0 %) -Slough/Fibrin Yes -Necrosis Amt Large (67-100%) -Necrotic Tissue Type Adherent Slough -Texture (Niya-wound Skin Appearance) Assessed, Scarring -Moisture (Niya-wound Skin Appearance) Assessed -Color (Niya-wound Skin Appearance) Assessed, Erythema -Temperature (Niya-wound Skin No Abnormality Appearance) (Pt Warm) -Tenderness on Palpation (Niya-wound No Skin Appearance) -Ulcer Cleansing Soap and Water -Foul Odor after Cleansing No -Anesthetic Used 5% Lidocaine Gel WC - Nurse 2 - General Ulcer CM Notes Start: 05/04/21 11:40 Freq: Status: Active Protocol: Activity Type Activity Date Activity User E-Sign Co-Sign Detail Recorded Client Recorded Date Recorded By Document 05/04/21 11:52 MW [id number] 05/04/21 12:05 MW 05/04/21 11:52 Wound Center Nurse 2 -Time 11:53 -Correct Patient Yes -Correct Side, Site, Position Yes -Correct Procedure Yes -Procedure Performed Yes -Type of Procedure Incision & Drainage -Clinical Debridement Subcutaneous -Tissue Removed Subcutaneous -Post Debridement (cm) - Length 0.3 -Post Debridement (cm) - Width 0.4 -Post Debridement (cm) - Depth 0.1 -Total Square (Post) (cm) 0.12 -Area of Debridement (cm) - Length 0.3 -Area of Debridement (cm) - Width 0.4 -Total Square (Area) (cm) 0.12 -Tunneling No -Undermining/Tunneling No -Circular Undermining No -Wound/Ulcer Outcome Not Healed -Ulcer Cleansing Rinsed/ Irrigated with Saline -Foul Odor after Cleansing No -Bioengineered Tissue Yes -Type of Bioengineered Tissue Epifix 18mm Disc -Expiration Date 01/31/26 -Product Lot Number [id number] -Percent Used 100 -Lot number of Saline Used [id number] -Bleeding Controlled with Pressure -Offloading No -Treatment Response Procedure Tolerated Well -Debridement - Subq, 1st 20sq cm No -Apply Skin Sub - 1st 25 sq cm - Feet 1 -Epifix 18mm Disc 3 Pain Scale: 0-10 Numeric Is Patient Pain Free? Yes WC - Nurse 3 - General Ulcer D/C NN Start: 05/04/21 11:40 Freq: Status: Active Protocol: Activity Type Activity Date Activity User E-Sign Co-Sign Detail Recorded Client Recorded Date Recorded By Document 05/04/21 12:05 MW [id number] 05/04/21 12:06 MW 05/04/21 12:05 Wound Care Nurse 3 #7 LEFT 5TH TOE -Ulcer Cleansing Not Cleansed -Foul Odor after Cleansing No -Negative Pressure Wound Therapy N/A -Primary Dressing Applied Aquacel Extra -Primary Dressing Covered/Secured with Dry Gauze, Secured with Tape -Aquacel Extra 1 Treatment Response Procedure Tolerated Well Pain Scale: 0-10 Numeric Is Patient Pain Free? Yes Teaching: Wound Center Dressing Your Wound -Person Taught Patient -Teaching Method Discussion -Response to teaching Verbalize understanding WC - Visit Discharge Discharge Condition Stable Ambulatory Status Ambulatory, Walker Transportation Private Auto Accompanied by friend Medication Reconcilliation completed & No provided to patient/care provider Clinical Summary of Care Provided Yes Assessment/Plan Assessment/Plan (1) Infected stasis ulcer of left lower extremity: CODE(S): I83.229 - Varicose veins of left lower extremity with both ulcer of unspecified site and inflammation; L97.929 - Non-pressure chronic ulcer of unspecified part of left lower leg with unspecified severity (2) Diabetic foot ulcers: CODE(S): E11.621 - Type 2 diabetes mellitus with foot ulcer; L97.509 - Non-pressure chronic ulcer of other part of unspecified foot with unspecified severity QUALIFIERS: Diabetic foot ulcer location: toe Diabetes mellitus type: type 2 Laterality: left Non-pressure ulcer stage: unspecified non- pressure ulcer stage Qualified Code(s): E11.621 - Type 2 diabetes mellitus with foot ulcer; L97.529 - Non-pressure chronic ulcer of other part of left foot with unspecified severity PLAN: Right foot toe washed with antibacterial soap and epi fix #3 applied to wound base covered with a GenTeal Adaptic Steri-Strips then Aquacel extra over top with padded dressing. Patient was told not to shower for x1 week follow-up in 1 week for reevaluation (3) Cellulitis of foot: CODE(S): L03.119 - Cellulitis of unspecified part of limb
[2021-05-12 13:05] VITALS: BP 143/48; PULSE 78; RESP 18; TEMP 35.9; O2SAT 96
--- NOTE | 2021-05-12 16:49 | PN.PCM_ITS ---
History of Present Illness Date of Service: 05/12/21 Chief Complaint: Follow-up left little toe intertriginous diabetic foot ulcer History of Wound: 75-year-old white female noticed about a month ago the ulcer appeared for unknown reasons The skin is warm to touch the entire fifth toe is red and she has a small ulcer on the medial side of the fifth toe. She has been using yeast cream in the area. The wound itself looks clean beefy base. She denies any pain she denies knowing how it started. Progress of Wound: courtesy visit for Clara ROGERS-The intertriginous area between her fourth and fifth toe are stable without any new concerns at this time, 4th application of epifix today Objective Data Objective Data Vital Signs: Vital Signs Temp Pulse Resp BP Pulse Ox 96.6 F L 78 18 143/48 H 96 05/12/21 13:05 05/12/21 13:05 05/12/21 13:05 05/12/21 13:05 05/12/21 13:05 Oxygen Delivery Method Room Air Charges/Coding Procedures Integumentary 150xxx-152xx: 24360 Skin sub graft face/nk/hf/g Physical Exam Const oriented x3 General Appearance: cooperative Exam Limitations: no limitations Resp normal respiratory effort Effort and Inspection: able to speak in complete sentences Auscultation: clear to auscultation bilaterally Cardio regular rate and regular rhythm Palpation: normal PMI Rate: regular rate Rhythm: regular rhythm GI Auscultation: normoactive bowel sounds Palpation: soft and no hepatosplenomegaly external exam normal Extremity normal to inspection General Extremity: normal exam except as noted Skin Wound Narrative: Left little toe ulcer with adherant slough, no signs of infection at this time. Neuro oriented x3 Psych Appearance: grossly normal Speech: normal speech Thought Content: normal thought content Judgement: judgement good Debridement Note Debridement Note Wound debrided: L 5th toe ulcer Laterality: Left Type of Debridement: Excisional debridement Anesthesia Used: 5% Lidocaine Gel Depth: Down to and including healthy tissue and in the subcutaneous layer Percentage of wound debrided: 100 Instrument Used: 3mm curette Tissue Removed: Slough and devitalized tissue Severity: Fat Layer Exposed Amount of bleeding with debridement: Mild Bleeding Controlled with: Pressure Patient tolerated procedure: Patient tolerated procedure well Post-Debridement Measurements and Additional Note: Post-Debridement Measurements/Treatment WC - Nurse 1 - General Ulcer Assessment Start: 05/04/21 11:40 Freq: Status: Active Protocol: CYNTHIA Activity Type Activity Date Activity User E-Sign Co-Sign Detail Recorded Client Recorded Date Recorded By Document 05/04/21 11:40 [facility] [id number] 05/04/21 11:44 [facility] Document 05/12/21 13:05 [id number] 05/12/21 13:09 05/04/21 05/12/21 11:40 13:05 - Today's Visit Information Type of service Follow-up Visit Follow-up Visit (Physician/FEED RESEARCH TECHNICIAN (Physician/FEED RESEARCH TECHNICIAN ) ) Arrival Mode Ambulatory, Ambulatory, Walker Walker Transfer Assistance None Patient Identification Verified (Name & Yes Yes ) Patient Requires Transmission-Based No Precautions Finger Stick Blood Sugar(mg/dl) (if 124 108 indicated): Blood Sugar Stated by Stated by Patient Patient Vital Signs Temperature (97.8 F-99.1 F) 96 F L 96.6 F L Temperature Source Temporal Temporal Pulse Rate (60-100) 69 78 Pulse Location Monitor Monitor Respiratory Rate (12-18) 16 18 Respiratory rate source Observation Observation Pulse Oximetry 96 Oxygen Delivery Method Room Air Room Air Blood Pressure (90/60-120/80) 134/45 H 143/48 H Blood Pressure Mean (mm Hg) 74 79 Source Monitor Monitor Position Sitting Sitting Blood Pressure Location Right Arm Left Arm History Since Last Visit- (Skip if this is Patient's initial visit) Have you changed medications since your No No last visit? Any new allergies or adverse reactions No No Had a fall/change in ADL's that may No increase risk of falls Signs or symptoms of abuse and/or No No neglect since last visit Have you been in the hospital since your No No last visit? Has dressing in place as prescribed Yes Yes Has compression in place as prescribed N/A Yes Has offloadiing in place as prescribed N/A N/A Experienced any changes in pain level or No No management Left Footwear Regular Shoe Regular Shoe Right Footwear Regular Shoe Regular Shoe Pain Scale: 0-10 Numeric Is Patient Pain Free? Yes Yes SHELLEY - Nurse 1 - General Ulcer Measurement Start: 05/04/21 11:40 Freq: Status: Active Protocol: Activity Type Activity Date Activity User E-Sign Co-Sign Detail Recorded Client Recorded Date Recorded By Document 05/04/21 11:40 [facility] [id number] 05/04/21 11:44 [facility] Document 05/12/21 13:05 [id number] 05/12/21 13:09 05/04/21 05/12/21 11:40 13:05 Wound Center Nurse 1 #7 LEFT 5TH TOE -Combined with other wound No No -Current Size (cm) - Length 0.9 0.6 -Current Size (cm) - Width 1 0.4 -Current Size (cm) - Depth 0.1 0.1 -Total Square Cm 0.9 0.24 -Date of Last Picture (Recall this 05/04/21 field) -Photo Taken Yes No -Epithelialization None Present Medium 34-66% -Tunneling No No -Undermining/Tunneling No No -Circular Undermining No No -Exudate Amt Medium Small -Exudate Type Serosanguineous Serosanguineous -Wound Margin Distinct, Flat & Intact Outline Attached -Granulation Amt None Present (0 Medium (34-66%) %) -Granulation Quality Red -Slough/Fibrin Yes Yes -Necrosis Amt Large (67-100%) Small (1-33%) -Necrotic Tissue Type Adherent Slough Adherent Slough -Structure Exposed N/A -Texture (Niya-wound Skin Appearance) Assessed, Assessed Scarring -Moisture (Niya-wound Skin Appearance) Assessed -Color (Niya-wound Skin Appearance) Assessed, Assessed Erythema -Temperature (Niya-wound Skin No Abnormality No Abnormality Appearance) (Pt Warm) (Pt Warm) -Tenderness on Palpation (Niya-wound No No Skin Appearance) -Ulcer Cleansing Soap and Water Rinsed/ Irrigated with Saline -Foul Odor after Cleansing No No -Anesthetic Used 5% Lidocaine 5% Lidocaine Gel Gel Lower Limb Edema Present NA WC - Nurse 2 - General Ulcer CM Notes Start: 05/04/21 11:40 Freq: Status: Active Protocol: Activity Type Activity Date Activity User E-Sign Co-Sign Detail Recorded Client Recorded Date Recorded By Document 05/04/21 11:52 MW [id number] 05/04/21 12:05 MW Document 05/12/21 13:32 MW [id number] 05/12/21 13:34 MW 05/04/21 05/12/21 11:52 13:32 Wound Center Nurse 2 #7 LEFT 5TH TOE -Time 11:53 13:33 -Correct Patient Yes Yes -Correct Side, Site, Position Yes Yes -Correct Procedure Yes Yes -Procedure Performed Yes Yes -Type of Procedure Incision & Debridement Drainage -Clinical Debridement Subcutaneous Subcutaneous -Tissue Removed Subcutaneous Subcutaneous -Post Debridement (cm) - Length 0.3 1.0 -Post Debridement (cm) - Width 0.4 0.5 -Post Debridement (cm) - Depth 0.1 0.1 -Total Square (Post) (cm) 0.12 0.50 -Area of Debridement (cm) - Length 0.3 1.0 -Area of Debridement (cm) - Width 0.4 0.5 -Total Square (Area) (cm) 0.12 0.50 -Tunneling No No -Undermining/Tunneling No No -Circular Undermining No No -Wound/Ulcer Outcome Not Healed Not Healed -Ulcer Cleansing Rinsed/ Rinsed/ Irrigated with Irrigated with Saline Saline -Foul Odor after Cleansing No No -Bioengineered Tissue Yes Yes -Type of Bioengineered Tissue Epifix 18mm Epifix 18mm Disc Disc -Expiration Date 01/31/26 01/31/26 -Product Lot Number [id number] -Percent Used 100 100 -Lot number of Saline Used [id number] -Bleeding Controlled with Pressure Pressure -Offloading No No -Treatment Response Procedure Procedure Tolerated Well Tolerated Well -Debridement - Subq, 1st 20sq cm No No -Apply Skin Sub - 1st 25 sq cm - Feet 1 1 -Epifix 18mm Disc 3 3 Pain Scale: 0-10 Numeric Is Patient Pain Free? Yes Yes WC - Nurse 3 - General Ulcer D/C NN Start: 05/04/21 11:40 Freq: Status: Active Protocol: Activity Type Activity Date Activity User E-Sign Co-Sign Detail Recorded Client Recorded Date Recorded By Document 05/04/21 12:05 MW [id number] 05/04/21 12:06 MW Document 05/12/21 13:43 ML [id number] 05/12/21 13:44 ML 05/04/21 05/12/21 12:05 13:43 Wound Care Nurse 3 #7 LEFT 5TH TOE -Ulcer Cleansing Not Cleansed -Foul Odor after Cleansing No -Negative Pressure Wound Therapy N/A -Primary Dressing Applied Aquacel Extra Aquacel Extra -Primary Dressing Covered/Secured with Dry Gauze, Dry Gauze, Secured with Secured with Tape Tape -Aquacel Extra 1 1 Treatment Response Procedure Tolerated Well Pain Scale: 0-10 Numeric Is Patient Pain Free? Yes Yes Teaching: Wound Center Dressing Your Wound -Person Taught Patient -Teaching Method Discussion -Response to teaching Verbalize understanding WC - Visit Discharge Discharge Condition Stable Ambulatory Status Ambulatory, Walker Transportation Private Auto Accompanied by friend Medication Reconcilliation completed & No provided to patient/care provider Clinical Summary of Care Provided Yes Assessment/Plan Assessment/Plan (1) Infected stasis ulcer of left lower extremity: CODE(S): I83.229 - Varicose veins of left lower extremity with both ulcer of unspecified site and inflammation; L97.929 - Non-pressure chronic ulcer of unspecified part of left lower leg with unspecified severity (2) Diabetic foot ulcers: CODE(S): E11.621 - Type 2 diabetes mellitus with foot ulcer; L97.509 - Non-pressure chronic ulcer of other part of unspecified foot with unspecified severity QUALIFIERS: Diabetic foot ulcer location: toe Diabetes mellitus type: type 2 Laterality: left Non-pressure ulcer stage: unspecified non- pressure ulcer stage Qualified Code(s): E11.621 - Type 2 diabetes mellitus with foot ulcer; L97.529 - Non-pressure chronic ulcer of other part of left foot with unspecified severity (3) Depression: CODE(S): F32.9 - Major depressive disorder, single episode, unspecified (4) Essential hypertension: CODE(S): I10 - Essential (primary) hypertension (5) Paroxysmal atrial fibrillation: CODE(S): I48.0 - Paroxysmal atrial fibrillation PLAN: Courtesy visit for Clara ROGERS- right foot toe washed with antibacterial soap and epi fix #4 applied to wound base covered with a GenTeal Adaptic Steri- Strips then Aquacel extra over top with padded dressing. 18 mm disc of Epifix was utilized 100% use with no waste. Patient was told not to shower for x1 week follow-up in 1 week for reevaluation
[2021-05-18 11:39] VITALS: BP 137/49; PULSE 77; RESP 16; TEMP 35.7
--- NOTE | 2021-05-18 12:14 | WC ---
EPIFIX WITH HYDROGEL, WOUND VEIL,AND STERI STRIPS APPLIED
[2021-05-25 09:50] VITALS: BP 135/58; PULSE 77; RESP 18; TEMP 36.2
--- NOTE | 2021-05-25 10:20 | PCM.WC.PN ---
History of Present Illness Date of Service: 05/25/21 Chief Complaint: Follow-up left little toe intertriginous diabetic foot ulcer History of Wound: 75-year-old white female noticed about a month ago the ulcer appeared for unknown reasons The skin is warm to touch the entire fifth toe is red and she has a small ulcer on the medial side of the fifth toe. She has been using yeast cream in the area. The wound itself looks clean beefy base. She denies any pain she denies knowing how it started. Progress of Wound: The intertriginous area between the fourth and fifth toe continues to heal nicely no sign of infection much smaller still using epi fix. Subjective Subjective Patient is very pleased with progress of the wound Objective Data Objective Data As stated above improvement with measurements no sign of infection epi fix #6 applied doing well no complaints Vital Signs: Vital Signs Temp Pulse Resp BP Pulse Ox 97.1 F L 77 18 135/58 H 96 05/25/21 09:50 05/25/21 09:50 05/25/21 09:50 05/25/21 09:50 05/12/21 13:05 Oxygen Delivery Method Room Air Lab / Micro Data Attestation: I reviewed the patient's lab results. Physical Exam Const oriented x3 General Appearance: cooperative Exam Limitations: no limitations Resp normal respiratory effort Effort and Inspection: able to speak in complete sentences Auscultation: clear to auscultation bilaterally Cardio regular rate and regular rhythm Palpation: normal PMI Rate: regular rate Rhythm: regular rhythm GI Auscultation: normoactive bowel sounds Palpation: soft and no hepatosplenomegaly external exam normal Extremity normal to inspection General Extremity: normal exam except as noted Skin Wound Narrative: Left little toe ulcer with adherant slough, no signs of infection at this time. Neuro oriented x3 Psych Appearance: grossly normal Speech: normal speech Thought Content: normal thought content Judgement: judgement good Debridement Note Debridement Note Wound debrided: Intertriginous area fifth toe ulcer Type of Debridement: Excisional debridement Anesthesia Used: 5% Lidocaine Gel Depth: Down to and including healthy tissue Percentage of wound debrided: 100 Instrument Used: 3mm curette Tissue Removed: Fibrin Severity: Limited To Skin Breakdown Amount of bleeding with debridement: Mild Bleeding Controlled with: Pressure Patient tolerated procedure: Patient tolerated procedure well Post-Debridement Measurements and Additional Note: Post-Debridement Measurements/Treatment WC - Nurse 1 - General Ulcer Assessment Start: 05/04/21 11:40 Freq: Status: Active Protocol: CYNTHIA Activity Type Activity Date Activity User E-Sign Co-Sign Detail Recorded Client Recorded Date Recorded By Document 05/04/21 11:40 [facility] [id number] 05/04/21 11:44 BM Document 05/12/21 13:05 JF [id number] 05/12/21 13:09 Document 05/18/21 11:39 [facility] [id number] 05/18/21 11:45 BM Document 05/25/21 09:50 [facility] [id number] 05/25/21 10:00 [facility] 05/04/21 05/12/21 05/18/21 11:40 13:05 11:39 - Today's Visit Information Type of service Follow-up Visit Follow-up Visit Follow-up Visit (Physician/ANGLEDOZER OPERATOR (Physician/ANGLEDOZER OPERATOR (Physician/ANGLEDOZER OPERATOR ) ) ) Arrival Mode Ambulatory, Ambulatory, Ambulatory, Walker Walker Walker Transfer Assistance None None Patient Identification Verified (Name & Yes Yes Yes ) Patient Requires Transmission-Based No No Precautions Finger Stick Blood Sugar(mg/dl) (if 124 108 indicated): Blood Sugar Stated by Stated by Patient Patient Vital Signs Temperature (97.8 F-99.1 F) 96 F L 96.6 F L 96.2 F L Temperature Source Temporal Temporal Temporal Pulse Rate (60-100) 69 78 77 Pulse Location Monitor Monitor Monitor Respiratory Rate (12-18) 16 18 16 Respiratory rate source Observation Observation Observation Pulse Oximetry 96 Oxygen Delivery Method Room Air Room Air Room Air Blood Pressure (90/60-120/80) 134/45 H 143/48 H 137/49 H Blood Pressure Mean (mm Hg) 74 79 78 Source Monitor Monitor Monitor Position Sitting Sitting Sitting Blood Pressure Location Right Arm Left Arm Left Forearm History Since Last Visit- (Skip if this is Patient's initial visit) Have you changed medications since your No No No last visit? Any new allergies or adverse reactions No No No Had a fall/change in ADL's that may No No increase risk of falls Signs or symptoms of abuse and/or No No No neglect since last visit Have you been in the hospital since your No No No last visit? Has dressing in place as prescribed Yes Yes Yes Has compression in place as prescribed N/A Yes N/A Has offloadiing in place as prescribed N/A N/A N/A Experienced any changes in pain level or No No No management Left Footwear Regular Shoe Regular Shoe Diabetic Shoe Right Footwear Regular Shoe Regular Shoe Diabetic Shoe Pain Scale: 0-10 Numeric Is Patient Pain Free? Yes Yes Yes 05/25/21 09:50 - Today's Visit Information Type of service Follow-up Visit (Physician/ANGLEDOZER OPERATOR ) Arrival Mode Ambulatory, Walker Transfer Assistance None Patient Identification Verified (Name & Yes ) Patient Requires Transmission-Based No Precautions Finger Stick Blood Sugar(mg/dl) (if indicated): Blood Sugar Vital Signs Temperature (97.8 F-99.1 F) 97.1 F L Temperature Source Temporal Pulse Rate (60-100) 77 Pulse Location Monitor Respiratory Rate (12-18) 18 Respiratory rate source Observation Pulse Oximetry Oxygen Delivery Method Room Air Blood Pressure (90/60-120/80) 135/58 H Blood Pressure Mean (mm Hg) 83 Source Monitor Position Sitting Blood Pressure Location Left Arm History Since Last Visit- (Skip if this is Patient's initial visit) Have you changed medications since your No last visit? Any new allergies or adverse reactions No Had a fall/change in ADL's that may No increase risk of falls Signs or symptoms of abuse and/or No neglect since last visit Have you been in the hospital since your No last visit? Has dressing in place as prescribed Yes Has compression in place as prescribed N/A Has offloadiing in place as prescribed N/A Experienced any changes in pain level or No management Left Footwear Regular Shoe Right Footwear Regular Shoe Pain Scale: 0-10 Numeric Is Patient Pain Free? Yes - Nurse 1 - General Ulcer Measurement Start: 05/04/21 11:40 Freq: Status: Active Protocol: Activity Type Activity Date Activity User E-Sign Co-Sign Detail Recorded Client Recorded Date Recorded By Document 05/04/21 11:40 [facility] [id number] 05/04/21 11:44 BM Document 05/12/21 13:05 [id number] 05/12/21 13:09 Document 05/18/21 11:39 [facility] [id number] 05/18/21 11:45 BMF Document 05/25/21 09:50 [facility] [id number] 05/25/21 10:00 [facility] 05/04/21 05/12/21 05/18/21 11:40 13:05 11:39 Wound Center Nurse 1 #7 LEFT 5TH TOE -Combined with other wound No No No -Current Size (cm) - Length 0.9 0.6 1 -Current Size (cm) - Width 1 0.4 0.4 -Current Size (cm) - Depth 0.1 0.1 0.2 -Total Square Cm 0.9 0.24 0.4 -Date of Last Picture (Recall this 05/04/21 05/18/21 field) -Photo Taken Yes No Yes -Epithelialization None Present Medium 34-66% Medium 34-66% -Tunneling No No No -Undermining/Tunneling No No No -Circular Undermining No No No -Exudate Amt Medium Small Small -Exudate Type Serosanguineous Serosanguineous Serosanguineous -Wound Margin Distinct, Flat & Intact Distinct, Outline Outline Attached Attached -Granulation Amt None Present (0 Medium (34-66%) Large (67-100%) %) -Granulation Quality Red Red -Slough/Fibrin Yes Yes -Necrosis Amt Large (67-100%) Small (1-33%) -Necrotic Tissue Type Adherent Slough Adherent Slough -Structure Exposed N/A -Texture (Niya-wound Skin Appearance) Assessed, Assessed Assessed, Scarring Scarring -Moisture (Niya-wound Skin Appearance) Assessed Assessed -Color (Niya-wound Skin Appearance) Assessed, Assessed Assessed Erythema -Temperature (Niya-wound Skin No Abnormality No Abnormality No Abnormality Appearance) (Pt Warm) (Pt Warm) (Pt Warm) -Tenderness on Palpation (Niya-wound No No No Skin Appearance) -Ulcer Cleansing Soap and Water Rinsed/ Soap and Water Irrigated with Saline -Foul Odor after Cleansing No No No -Anesthetic Used 5% Lidocaine 5% Lidocaine 5% Lidocaine Gel Gel Gel Lower Limb Edema Present NA 05/25/21 09:50 Wound Center Nurse 1 #7 LEFT 5TH TOE -Combined with other wound No -Current Size (cm) - Length 0.3 -Current Size (cm) - Width 0.1 -Current Size (cm) - Depth 0.2 -Total Square Cm 0.03 -Date of Last Picture (Recall this 05/25/21 field) -Photo Taken Yes -Epithelialization Small 1-33% -Tunneling No -Undermining/Tunneling No -Circular Undermining No -Exudate Amt Small -Exudate Type Serous -Wound Margin Distinct, Outline Attached -Granulation Amt Small (1-33%) -Granulation Quality Red -Slough/Fibrin Yes -Necrosis Amt Large (67-100%) -Necrotic Tissue Type Adherent Slough -Structure Exposed -Texture (Niya-wound Skin Appearance) Assessed -Moisture (Niya-wound Skin Appearance) Assessed, Maceration -Color (Niya-wound Skin Appearance) Assessed,Palor -Temperature (Niya-wound Skin No Abnormality Appearance) (Pt Warm) -Tenderness on Palpation (Niya-wound No Skin Appearance) -Ulcer Cleansing Soap and Water -Foul Odor after Cleansing No -Anesthetic Used 5% Lidocaine Gel Lower Limb Edema Present WC - Nurse 2 - General Ulcer CM Notes Start: 05/04/21 11:40 Freq: Status: Active Protocol: Activity Type Activity Date Activity User E-Sign Co-Sign Detail Recorded Client Recorded Date Recorded By Document 05/04/21 11:52 MW [id number] 05/04/21 12:05 MW Document 05/12/21 13:32 MW [id number] 05/12/21 13:34 MW Document 05/18/21 11:53 MW [id number] 05/18/21 12:02 MW Document 05/25/21 10:03 MW [id number] 05/25/21 10:10 MW 05/04/21 05/12/21 05/18/21 11:52 13:32 11:53 Wound Center Nurse 2 #7 LEFT 5TH TOE -Time 11:53 13:33 11:53 -Correct Patient Yes Yes Yes -Correct Side, Site, Position Yes Yes Yes -Correct Procedure Yes Yes Yes -Procedure Performed Yes Yes Yes -Type of Procedure Incision & Debridement Debridement Drainage -Clinical Debridement Subcutaneous Subcutaneous Subcutaneous -Tissue Removed Subcutaneous Subcutaneous Subcutaneous -Post Debridement (cm) - Length 0.3 1.0 0.5 -Post Debridement (cm) - Width 0.4 0.5 0.4 -Post Debridement (cm) - Depth 0.1 0.1 0.1 -Total Square (Post) (cm) 0.12 0.50 0.20 -Area of Debridement (cm) - Length 0.3 1.0 0.5 -Area of Debridement (cm) - Width 0.4 0.5 0.4 -Total Square (Area) (cm) 0.12 0.50 0.20 -Tunneling No No No -Undermining/Tunneling No No No -Circular Undermining No No No -Wound/Ulcer Outcome Not Healed Not Healed Not Healed -Ulcer Cleansing Rinsed/ Rinsed/ Rinsed/ Irrigated with Irrigated with Irrigated with Saline Saline Saline -Foul Odor after Cleansing No No No -Bioengineered Tissue Yes Yes Yes -Type of Bioengineered Tissue Epifix 18mm Epifix 18mm Epifix 18mm Disc Disc Disc -Expiration Date 01/31/26 01/31/26 01/31/26 -Product Lot Number [id number] -Percent Used 100 100 100 -Lot number of Saline Used [id number] -Bleeding Controlled with Pressure Pressure Pressure -Offloading No No No -Treatment Response Procedure Procedure Procedure Tolerated Well Tolerated Well Tolerated Well -Debridement - Subq, 1st 20sq cm No No No -Apply Skin Sub - 1st 25 sq cm - Feet 1 1 1 -Epifix 18mm Disc 3 3 3 Pain Scale: 0-10 Numeric Is Patient Pain Free? Yes Yes Yes 05/25/21 10:03 Wound Center Nurse 2 #7 LEFT 5TH TOE -Time 10:04 -Correct Patient Yes -Correct Side, Site, Position Yes -Correct Procedure Yes -Procedure Performed Yes -Type of Procedure Debridement -Clinical Debridement Subcutaneous -Tissue Removed Subcutaneous -Post Debridement (cm) - Length 0.2 -Post Debridement (cm) - Width 0.3 -Post Debridement (cm) - Depth 0.1 -Total Square (Post) (cm) 0.06 -Area of Debridement (cm) - Length 0.2 -Area of Debridement (cm) - Width 0.3 -Total Square (Area) (cm) 0.06 -Tunneling No -Undermining/Tunneling No -Circular Undermining No -Wound/Ulcer Outcome Not Healed -Ulcer Cleansing Rinsed/ Irrigated with Saline -Foul Odor after Cleansing No -Bioengineered Tissue Yes -Type of Bioengineered Tissue Epifix 18mm Disc -Expiration Date 01/31/26 -Product Lot Number [id number] -Percent Used 100 -Lot number of Saline Used [id number] -Bleeding Controlled with Pressure -Offloading No -Treatment Response Procedure Tolerated Well -Debridement - Subq, 1st 20sq cm No -Apply Skin Sub - 1st 25 sq cm - Feet 1 -Epifix 18mm Disc 3 Pain Scale: 0-10 Numeric Is Patient Pain Free? Yes - Nurse 3 - General Ulcer D/C NN Start: 05/04/21 11:40 Freq: Status: Active Protocol: Activity Type Activity Date Activity User E-Sign Co-Sign Detail Recorded Client Recorded Date Recorded By Document 05/04/21 12:05 MW [id number] 05/04/21 12:06 MW Document 05/12/21 13:43 ML [id number] 05/12/21 13:44 ML Document 05/18/21 12:13 ML [id number] 05/18/21 12:15 ML Document 05/25/21 10:13 [facility] [id number] 05/25/21 10:14 BMF 05/04/21 05/12/21 05/18/21 12:05 13:43 12:13 Wound Care Nurse 3 #7 LEFT 5TH TOE -Ulcer Cleansing Not Cleansed -Foul Odor after Cleansing No -Negative Pressure Wound Therapy N/A -Primary Dressing Applied Aquacel Extra Aquacel Extra Aquacel Extra -Other Dressing -Primary Dressing Covered/Secured with Dry Gauze, Dry Gauze, Dry Gauze, Secured with Secured with Secured with Tape Tape Tape -Other Covering -Aquacel Extra 1 1 1 Treatment Response Procedure Tolerated Well Pain Scale: 0-10 Numeric Is Patient Pain Free? Yes Yes Yes Teaching: Wound Center Dressing Your Wound -Person Taught Patient -Teaching Method Discussion -Response to teaching Verbalize understanding WC - Visit Discharge Discharge Condition Stable Ambulatory Status Ambulatory, Walker Transportation Private Auto Accompanied by friend Medication Reconcilliation completed & No provided to patient/care provider Clinical Summary of Care Provided Yes Facility Type 05/25/21 10:13 Wound Care Nurse 3 #7 LEFT 5TH TOE -Ulcer Cleansing -Foul Odor after Cleansing -Negative Pressure Wound Therapy -Primary Dressing Applied Aquacel Extra -Other Dressing epifix -Primary Dressing Covered/Secured with Dry Gauze, Secured with Tape -Other Covering drsg per ak striker off -Aquacel Extra 1 Treatment Response Procedure Tolerated Well Pain Scale: 0-10 Numeric Is Patient Pain Free? Yes Teaching: Wound Center Dressing Your Wound -Person Taught -Teaching Method -Response to teaching WC - Visit Discharge Discharge Condition Stable Ambulatory Status Ambulatory, Walker Transportation Private Auto Accompanied by Medication Reconcilliation completed & provided to patient/care provider Clinical Summary of Care Provided Facility Type Home Health 05/18/21 12:14 Wound Center by Sabina Wesley EPIFIX WITH HYDROGEL, WOUND VEIL,AND STERI STRIPS APPLIED Initialized on 05/18/21 12:14 - END OF NOTE Assessment/Plan Assessment/Plan (1) Infected stasis ulcer of left lower extremity: CODE(S): I83.229 - Varicose veins of left lower extremity with both ulcer of unspecified site and inflammation; L97.929 - Non-pressure chronic ulcer of unspecified part of left lower leg with unspecified severity (2) Diabetic foot ulcers: CODE(S): E11.621 - Type 2 diabetes mellitus with foot ulcer; L97.509 - Non-pressure chronic ulcer of other part of unspecified foot with unspecified severity QUALIFIERS: Diabetic foot ulcer location: toe Diabetes mellitus type: type 2 Laterality: left Non-pressure ulcer stage: unspecified non-pressure ulcer stage Qualified Code(s): E11.621 - Type 2 diabetes mellitus with foot ulcer; L97.529 - Non-pressure chronic ulcer of other part of left foot with unspecified severity PLAN: Right foot toe washed with antibacterial soap and epi fix #6 applied to wound base covered with wound veil Steri-Strips then Aquacel extra over top with padded dressing. Patient was told not to shower for x1 week follow-up in 1 week for reevaluation (3) Cellulitis of foot: CODE(S): L03.119 - Cellulitis of unspecified part of limb
== END 2021-05-30 23:59 | disposition home or self-care (01) ==
LOC: WC 10:00
PROVIDERS: PCP Internal Medicine; Visit Provider Nurse Practitioner
DX: E11.621 Type 2 diabetes mellitus with foot ulcer (principal); L97.522 Non-pressure chronic ulcer of other part of left foot with fat layer exposed; I83.229 Varicose veins of left lower extremity with both ulcer of unspecified site and inflammation; I48.0 Paroxysmal atrial fibrillation; I83.92 Asymptomatic varicose veins of left lower extremity; I10 Essential (primary) hypertension; F32.9 Major depressive disorder, single episode, unspecified; L03.119 Cellulitis of unspecified part of limb
CPT/HCPCS: 15275; Q4186

== ENCOUNTER 2021-06-08 11:30 | Outpatient (RCR) | payer MEDICARE, SELFPAY ==
[2021-05-31 00:19] VITALS: BP 135/58; PULSE 77; RESP 18; TEMP 36.2; O2SAT 96
[2021-06-01 11:18] VITALS: BP 146/73; PULSE 77; RESP 16; TEMP 35.5
--- NOTE | 2021-06-01 12:02 | PN.PCM_ITS ---
History of Present Illness Date of Service: 06/01/21 Chief Complaint: Follow-up left little toe intertriginous diabetic foot ulcer History of Wound: 75-year-old white female noticed about a month ago the ulcer appeared for unknown reasons The skin is warm to touch the entire fifth toe is red and she has a small ulcer on the medial side of the fifth toe. She has been using yeast cream in the area. The wound itself looks clean beefy base. She denies any pain she denies knowing how it started. Progress of Wound: The wound is almost healed patient will be discharged soon we did apply epi #7 today no sign of infections patient is doing well Subjective Subjective She is pleased with her care Objective Data Objective Data Small area at the deepest point that is not healed yet but should be healed within the next week or so no sign of infection doing well Epi fix #7 applied today tolerated well Vital Signs: Vital Signs Temp Pulse Resp BP Pulse Ox 95.9 F L 77 16 146/73 H 96 06/01/21 11:18 06/01/21 11:18 06/01/21 11:18 06/01/21 11:18 05/31/21 00:19 Oxygen Delivery Method Room Air Physical Exam Narrative Seen and examined. Patient had physical therapy in the morning. Sitting on the chair. No resp iratory distress or shortness of breath. On 3 L of oxygen. General: Alert, Oriented x3, Cooperative morbid obesity BMI 41.6 kg/m? HEENT: Atraumatic, PERRLA, EOMI, Normocephalic Oral: No Gingival or Mucosal Lesions/ Ulcerations Neck: Supple, No JVD, Negative Carotid Bruits Lungs: Air entry diminished in bilateral lung bases. No crepitation/rhonchi. Cardiovascular: Regular rate and rhythm, Normal S1, Normal S2, diastolic murmur over cardiac apex and holosystolic murmur over LLSB. Abdomen: Bowel Sounds Present, Soft, Non Tender, Non-Distended. 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 : No renal angle tenderness. No suprapubic tenderness. Extremities: No edema, Capillary Refill Less than 3 Seconds Skin: Rash present over groin and mild abrasion and superficial skin ulcer over abdominal panniculus, present since admission Musculoskeletal: Surgical dressing is dry. No hematoma. Bilateral knee arthritis. Right hip pain knee power 4+/5 Neurological: Right-sided residual weakness with moderate aphasia. Psych/Mental Status: Normal Affect, Appropriate. Debridement Note Debridement Note Wound debrided: Fifth intertriginous toe ulcer Laterality: Right Type of Debridement: Excisional debridement Anesthesia Used: 5% Lidocaine Gel Depth: Down to and including healthy tissue Percentage of wound debrided: 100 Instrument Used: 3mm curette Tissue Removed: Fibrin Severity: Limited To Skin Breakdown Amount of bleeding with debridement: None Bleeding Controlled with: Compression and gauze Patient tolerated procedure: Patient tolerated procedure well Post-Debridement Measurements and Additional Note: Post-Debridement Measurements/Treatment - Nurse 1 - General Ulcer Assessment Start: 06/01/21 11:17 Freq: Status: Active Protocol: CYNTHIA Activity Type Activity Date Activity User E-Sign Co-Sign Detail Recorded Client Recorded Date Recorded By Document 06/01/21 11:18 [facility] [id number] 06/01/21 11:25 [facility] 06/01/21 11:18 WC - Today's Visit Information Type of service Follow-up Visit (Physician/CLIENT COORDINATOR ) Arrival Mode Ambulatory, Walker Transfer Assistance None Patient Identification Verified (Name & Yes ) Patient Requires Transmission-Based No Precautions Vital Signs Temperature (97.8 F-99.1 F) 95.9 F L Temperature Source Temporal Pulse Rate (60-100) 77 Pulse Location Monitor Respiratory Rate (12-18) 16 Respiratory rate source Observation Oxygen Delivery Method Room Air Blood Pressure (90/60-120/80) 146/73 H Blood Pressure Mean (mm Hg) 97 Source Monitor Position Sitting Blood Pressure Location Left Arm History Since Last Visit- (Skip if this is Patient's initial visit) Have you changed medications since your No last visit? Any new allergies or adverse reactions No Had a fall/change in ADL's that may No increase risk of falls Signs or symptoms of abuse and/or No neglect since last visit Have you been in the hospital since your No last visit? Has dressing in place as prescribed Yes Has compression in place as prescribed N/A Has offloadiing in place as prescribed N/A Experienced any changes in pain level or No management Left Footwear Diabetic Shoe Right Footwear Diabetic Shoe Pain Scale: 0-10 Numeric Is Patient Pain Free? Yes [facility] Nurse 1 - General Ulcer Measurement Start: 06/01/21 11:17 Freq: Status: Active Protocol: Activity Type Activity Date Activity User E-Sign Co-Sign Detail Recorded Client Recorded Date Recorded By Document 06/01/21 11:18 [facility] [id number] 06/01/21 11:25 [facility] 06/01/21 11:18 Wound Center Nurse 1 #7 LEFT 5TH TOE -Combined with other wound No -Current Size (cm) - Length 0.7 -Current Size (cm) - Width 0.4 -Current Size (cm) - Depth 0.2 -Total Square Cm 0.28 -Epithelialization Small 1-33% -Tunneling No -Undermining/Tunneling No -Circular Undermining No -Exudate Amt Small -Exudate Type Serous -Wound Margin Distinct, Outline Attached -Granulation Amt Small (1-33%) -Granulation Quality Red -Slough/Fibrin Yes -Necrosis Amt Medium (34-66%) -Necrotic Tissue Type Adherent Slough -Texture (Niya-wound Skin Appearance) Assessed, Scarring -Moisture (Niya-wound Skin Appearance) Assessed, Maceration -Color (Niya-wound Skin Appearance) Assessed,Palor -Temperature (Niya-wound Skin No Abnormality Appearance) (Pt Warm) -Tenderness on Palpation (Niya-wound No Skin Appearance) -Ulcer Cleansing Soap and Water -Foul Odor after Cleansing No -Anesthetic Used 5% Lidocaine Gel WC - Nurse 2 - General Ulcer CM Notes Start: 06/01/21 11:17 Freq: Status: Active Protocol: Activity Type Activity Date Activity User E-Sign Co-Sign Detail Recorded Client Recorded Date Recorded By Document 06/01/21 11:32 MW [id number] 06/01/21 11:39 MW 06/01/21 11:32 Wound Center Nurse 2 -Time 11:35 -Correct Patient Yes -Correct Side, Site, Position Yes -Correct Procedure Yes -Procedure Performed Yes -Type of Procedure Debridement -Clinical Debridement Subcutaneous -Tissue Removed Subcutaneous -Post Debridement (cm) - Length 0.7 -Post Debridement (cm) - Width 0.4 -Post Debridement (cm) - Depth 0.1 -Total Square (Post) (cm) 0.28 -Area of Debridement (cm) - Length 0.7 -Area of Debridement (cm) - Width 0.4 -Total Square (Area) (cm) 0.28 -Tunneling No -Undermining/Tunneling No -Circular Undermining No -Wound/Ulcer Outcome Not Healed -Ulcer Cleansing Rinsed/ Irrigated with Saline -Foul Odor after Cleansing No -Bioengineered Tissue Yes -Type of Bioengineered Tissue Epifix 18mm Disc -Expiration Date 03/02/26 -Product Lot Number [id number] -Percent Used 100 -Lot number of Saline Used [id number] -Bleeding Controlled with Pressure -Offloading No -Treatment Response Procedure Tolerated Well -Debridement - Subq, 1st 20sq cm No -Apply Skin Sub - 1st 25 sq cm - Feet 1 -Epifix 18mm Disc 3 Pain Scale: 0-10 Numeric Is Patient Pain Free? Yes - Nurse 3 - General Ulcer D/C NN Start: 06/01/21 11:17 Freq: Status: Active Protocol: Activity Type Activity Date Activity User E-Sign Co-Sign Detail Recorded Client Recorded Date Recorded By Document 06/01/21 11:40 [facility] [id number] 06/01/21 11:41 [place] Document 06/01/21 11:41 [place] [id number] 06/01/21 11:42 [place] 06/01/21 06/01/21 11:40 11:41 Wound Care Nurse 3 #7 LEFT 5TH TOE -Foul Odor after Cleansing No -Negative Pressure Wound Therapy N/A -Primary Dressing Applied Aquacel Extra -Primary Dressing Covered/Secured with Dry Gauze, Secured with Tape -Aquacel Extra 1 Pain Scale: 0-10 Numeric Is Patient Pain Free? Yes Yes - Visit Discharge Discharge Condition Stable Stable Ambulatory Status Ambulatory Walker Transportation Private Auto Medication Reconcilliation completed & Yes provided to patient/care provider Clinical Summary of Care Provided Yes Assessment/Plan Assessment/Plan (1) Infected stasis ulcer of left lower extremity: CODE(S): I83.229 - Varicose veins of left lower extremity with both ulcer of unspecified site and inflammation; L97.929 - Non-pressure chronic ulcer of unspecified part of left lower leg with unspecified severity (2) Diabetic foot ulcers: CODE(S): E11.621 - Type 2 diabetes mellitus with foot ulcer; L97.509 - Non-pressure chronic ulcer of other part of unspecified foot with unspecified severity QUALIFIERS: Diabetic foot ulcer location: toe Diabetes mellitus type: type 2 Laterality: left Non-pressure ulcer stage: unspecified non- pressure ulcer stage Qualified Code(s): E11.621 - Type 2 diabetes mellitus with foot ulcer; L97.529 - Non-pressure chronic ulcer of other part of left foot with unspecified severity PLAN: Right foot toe washed with antibacterial soap and epi fix #7 applied to wound base covered with wound veil Steri-Strips then Aquacel extra over top with padded dressing. Patient was told not to shower for x1 week follow-up in 1 week for reevaluation (3) Cellulitis of foot: CODE(S): L03.119 - Cellulitis of unspecified part of limb
[2021-06-08 11:13] VITALS: BP 137/54; PULSE 69; RESP 16; TEMP 35.9
--- NOTE | 2021-06-08 11:56 | PCM.WC.PN ---
History of Present Illness Date of Service: 06/08/21 Chief Complaint: Follow-up left little toe intertriginous diabetic foot ulcer History of Wound: 75-year-old white female noticed about a month ago the ulcer appeared for unknown reasons The skin is warm to touch the entire fifth toe is red and she has a small ulcer on the medial side of the fifth toe. She has been using yeast cream in the area. The wound itself looks clean beefy base. She denies any pain she denies knowing how it started. Progress of Wound: The wound is healed patient be discharged from the wound center Subjective Subjective Patient wants to know how this can be prevented from happening again Objective Data Objective Data Wound is healed patient be discharged from the wound center suggested washing feet daily drying good and using absorbent socks weight may be changing them twice a day Vital Signs: Vital Signs Temp Pulse Resp BP Pulse Ox 96.6 F L 69 16 137/54 H 96 06/08/21 11:13 06/08/21 11:13 06/08/21 11:13 06/08/21 11:13 05/31/21 00:19 Oxygen Delivery Method Room Air Lab / Micro Data Attestation: I reviewed the patient's lab results. Physical Exam Narrative Seen and examined. Patient had physical therapy in the morning. Sitting on the chair. No respiratory distress or shortness of breath. On 3 L of oxygen. General: Alert, Oriented x3, Cooperative morbid obesity BMI 41.6 kg/m? HEENT: Atraumatic, PERRLA, EOMI, Normocephalic Oral: No Gingival or Mucosal Lesions/ Ulcerations Neck: Supple, No JVD, Negative Carotid Bruits Lungs: Air entry diminished in bilateral lung bases. No crepitation/rhonchi. Cardiovascular: Regular rate and rhythm, Normal S1, Normal S2, diastolic murmur over cardiac apex and holosystolic murmur over LLSB. Abdomen: Bowel Sounds Present, Soft, Non Tender, Non-Distended. 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 : No renal angle tenderness. No suprapubic tenderness. Extremities: No edema, Capillary Refill Less than 3 Seconds Skin: Rash present over groin and mild abrasion and superficial skin ulcer over abdominal panniculus, present since admission Musculoskeletal: Surgical dressing is dry. No hematoma. Bilateral knee arthritis. Right hip pain knee power 4+/5 Neurological: Right-sided residual weakness with moderate aphasia. Psych/Mental Status: Normal Affect, Appropriate. Debridement Note Debridement Note No debridement was completed: No debridement was completed today Post-Debridement Measurements and Additional Note: Post-Debridement Measurements/Treatment - Nurse 1 - General Ulcer Assessment Start: 06/01/21 11:17 Freq: Status: Active Protocol: CYNTHIA Activity Type Activity Date Activity User E-Sign Co-Sign Detail Recorded Client Recorded Date Recorded By Document 06/01/21 11:18 [facility] [id number] 06/01/21 11:25 [facility] Document 06/08/21 11:13 [facility] [id number] 06/08/21 11:23 [facility] 06/01/21 06/08/21 11:18 11:13 WC - Today's Visit Information Type of service Follow-up Visit Follow-up Visit (Physician/HUNTER TRAPPER (Physician/HUNTER TRAPPER ) ) Arrival Mode Ambulatory, Ambulatory, Walker Walker Transfer Assistance None None Patient Identification Verified (Name & Yes Yes ) Patient Requires Transmission-Based No No Precautions Vital Signs Temperature (97.8 F-99.1 F) 95.9 F L 96.6 F L Temperature Source Temporal Temporal Pulse Rate (60-100) 77 69 Pulse Location Monitor Monitor Respiratory Rate (12-18) 16 16 Respiratory rate source Observation Observation Oxygen Delivery Method Room Air Room Air Blood Pressure (90/60-120/80) 146/73 H 137/54 H Blood Pressure Mean (mm Hg) 97 81 Source Monitor Monitor Position Sitting Sitting Blood Pressure Location Left Arm Left Arm History Since Last Visit- (Skip if this is Patient's initial visit) Have you changed medications since your No No last visit? Any new allergies or adverse reactions No No Had a fall/change in ADL's that may No No increase risk of falls Signs or symptoms of abuse and/or No No neglect since last visit Have you been in the hospital since your No No last visit? Has dressing in place as prescribed Yes Yes Has compression in place as prescribed N/A N/A Has offloadiing in place as prescribed N/A N/A Experienced any changes in pain level or No No management Left Footwear Diabetic Shoe Regular Shoe Right Footwear Diabetic Shoe Regular Shoe Pain Scale: 0-10 Numeric Is Patient Pain Free? Yes Yes [place] - Nurse 1 - General Ulcer Measurement Start: 06/01/21 11:17 Freq: Status: Active Protocol: Activity Type Activity Date Activity User E-Sign Co-Sign Detail Recorded Client Recorded Date Recorded By Document 06/01/21 11:18 [facility] [id number] 06/01/21 11:25 [facility] Document 06/08/21 11:13 [facility] [id number] 06/08/21 11:23 [facility] 06/01/21 06/08/21 11:18 11:13 Wound Center Nurse 1 #7 LEFT 5TH TOE -Combined with other wound No No -Current Size (cm) - Length 0.7 0.1 -Current Size (cm) - Width 0.4 0.1 -Current Size (cm) - Depth 0.2 0.1 -Total Square Cm 0.28 0.01 -Photo Taken No -Epithelialization Small 1-33% Medium 34-66% -Tunneling No No -Undermining/Tunneling No No -Circular Undermining No No -Exudate Amt Small Small -Exudate Type Serous Serous -Wound Margin Distinct, Distinct, Outline Outline Attached Attached -Granulation Amt Small (1-33%) Large (67-100%) -Granulation Quality [place] -Slough/Fibrin Yes No -Necrosis Amt Medium (34-66%) None Present (0 %) -Necrotic Tissue Type Adherent Slough -Texture (Niya-wound Skin Appearance) Assessed, Assessed, Scarring Scarring -Moisture (Niya-wound Skin Appearance) Assessed, Assessed, Maceration Maceration -Color (Niya-wound Skin Appearance) Assessed,Palor Assessed,Palor -Temperature (Niya-wound Skin No Abnormality No Abnormality Appearance) (Pt Warm) (Pt Warm) -Tenderness on Palpation (Niya-wound No No Skin Appearance) -Ulcer Cleansing Soap and Water Soap and Water -Foul Odor after Cleansing No No -Anesthetic Used 5% Lidocaine 5% Lidocaine Gel Gel WC - Nurse 2 - General Ulcer CM Notes Start: 06/01/21 11:17 Freq: Status: Active Protocol: Activity Type Activity Date Activity User E-Sign Co-Sign Detail Recorded Client Recorded Date Recorded By Document 06/01/21 11:32 MW [id number] 06/01/21 11:39 MW Document 06/08/21 11:30 MW [id number] 06/08/21 11:31 MW 06/01/21 06/08/21 11:32 11:30 Wound Center Nurse 2 #7 LEFT 5TH TOE -Time 11:35 11:30 -Correct Patient Yes Yes -Correct Side, Site, Position Yes Yes -Correct Procedure Yes Yes -Procedure Performed Yes No -Type of Procedure Debridement -Clinical Debridement Subcutaneous -Tissue Removed Subcutaneous -Post Debridement (cm) - Length 0.7 0 -Post Debridement (cm) - Width 0.4 0 -Post Debridement (cm) - Depth 0.1 0 -Total Square (Post) (cm) 0.28 0 -Area of Debridement (cm) - Length 0.7 -Area of Debridement (cm) - Width 0.4 -Total Square (Area) (cm) 0.28 -Tunneling No -Undermining/Tunneling No -Circular Undermining No -Wound/Ulcer Outcome Not Healed Healed- Epithelialized -Ulcer Cleansing Rinsed/ Irrigated with Saline -Foul Odor after Cleansing No -Bioengineered Tissue Yes -Type of Bioengineered Tissue Epifix 18mm Disc -Expiration Date 03/02/26 -Product Lot Number [id number] -Percent Used 100 -Lot number of Saline Used [id number] -Bleeding Controlled with Pressure -Offloading No -Treatment Response Procedure Tolerated Well -Debridement - Subq, 1st 20sq cm No -Apply Skin Sub - 1st 25 sq cm - Feet 1 -Epifix 18mm Disc 3 Pain Scale: 0-10 Numeric Is Patient Pain Free? Yes Yes WC - Nurse 3 - General Ulcer D/C NN Start: 06/01/21 11:17 Freq: Status: Active Protocol: Activity Type Activity Date Activity User E-Sign Co-Sign Detail Recorded Client Recorded Date Recorded By Document 06/01/21 11:40 [place] [id number] 06/01/21 11:41 [place] Document 06/01/21 11:41 [place] [id number] 06/01/21 11:42 [place] Document 06/08/21 11:34 [facility] [id number] 06/08/21 11:35 [facility] 06/01/21 06/01/21 06/08/21 11:40 11:41 11:34 Wound Care Nurse 3 #7 LEFT 5TH TOE -Foul Odor after Cleansing No -Negative Pressure Wound Therapy N/A -Primary Dressing Applied Aquacel Extra -Primary Dressing Covered/Secured with Dry Gauze, Secured with Tape -Aquacel Extra 1 Pain Scale: 0-10 Numeric Is Patient Pain Free? Yes Yes Yes WC - Visit Discharge Discharge Condition Stable Stable Stable Ambulatory Status Ambulatory Walker Ambulatory, Walker Transportation Private Auto Medication Reconcilliation completed & Yes provided to patient/care provider Clinical Summary of Care Provided Yes Notes: HEALED. Assessment/Plan Assessment/Plan (1) Infected stasis ulcer of left lower extremity: CODE(S): I83.229 - Varicose veins of left lower extremity with both ulcer of unspecified site and inflammation; L97.929 - Non-pressure chronic ulcer of unspecified part of left lower leg with unspecified severity (2) Diabetic foot ulcers: CODE(S): E11.621 - Type 2 diabetes mellitus with foot ulcer; L97.509 - Non-pressure chronic ulcer of other part of unspecified foot with unspecified severity QUALIFIERS: Diabetic foot ulcer location: toe Diabetes mellitus type: type 2 Laterality: left Non-pressure ulcer stage: unspecified non-pressure ulcer stage Qualified Code(s): E11.621 - Type 2 diabetes mellitus with foot ulcer; L97.529 - Non-pressure chronic ulcer of other part of left foot with unspecified severity PLAN: Wound resolved follow-up as needed discharge from the wound center (3) Cellulitis of foot: CODE(S): L03.119 - Cellulitis of unspecified part of limb
== END 2021-06-13 08:58 | disposition home or self-care (01) ==
LOC: WC 11:30
PROVIDERS: PCP Internal Medicine; Visit Provider Nurse Practitioner
DX: E11.621 Type 2 diabetes mellitus with foot ulcer (principal); L97.529 Non-pressure chronic ulcer of other part of left foot with unspecified severity; I83.92 Asymptomatic varicose veins of left lower extremity; L03.119 Cellulitis of unspecified part of limb
CPT/HCPCS: 15275; 99213; Q4186; G0463

== ENCOUNTER → 2021-08-02 | Outpatient (CLI) | payer MEDICARE, SELFPAY | END | disposition home or self-care (01) | PROVIDERS: PCP Internal Medicine; Referring Provider Podiatrist; Visit Provider Podiatrist | DX: L97.524 Non-pressure chronic ulcer of other part of left foot with necrosis of bone (principal) | CPT/HCPCS: 87070; 87205 ==

== ENCOUNTER → 2021-11-15 | Outpatient (CLI) | payer MEDICARE, SELFPAY ==
[2021-11-15 17:58] LABS: Absolute Lymphocyte Count 1.77 X10^3/uL (0.83-4.51); Absolute Neutrophil Count 6.3 X10^3/uL (2.0-7.7); Basophil# 0.02 X10^3/uL; Basophil% 0.2 % (0-1); Eosinophil# 0.31 X10^3/uL; Eosinophils% 3.4 % (0-5); Hematocrit 34.1 % (37-47); Hemoglobin 10.9 g/dL (12.0-15.0); Lymphocyte # 1.77 X10^3/ul (0.83-4.51); Lymphocyte % 19.7 % (19-41); Mean Corpuscular Hgb 31.4 pg (27.0-32.0); Mean Corpuscular Volume 98.3 fL (81-99); Mean Platelet Vol. 10.1 fl (6.2-12.0); Monocyte# 0.54 X10^3/uL; NRBC Flagged by Analyzer 0 % (0-5); Neutrophil # 6.32 X10^3/uL (2.7-7.7); Neutrophil % 70.3 % (47-70); Platelet Count 255 K/mm3 (150-450); RBC Distribution Width CV 13.1 % (11.6-14.6); Red Blood Count 3.47 M/mm3 (4.2-5.4)
[2021-11-15 18:43] LABS: ALB/GLOB Ratio 0.9 RATIO (0.9-2.4); AST(SGOT) 14 U/L (15-37); Alanine Aminotransfer ALT/SGPT 21 U/L (13-56); Albumin, Serum 3.1 g/dL (3.2-5.0); Alkaline Phosphatase 125 U/L (45-117); Anion Gap 4 (5-15); BUN 37 mg/dL (7-18); BUN/Creat Ratio 27.8 RATIO (10-20); Chloride 107 mmol/L (98-107); Creatinine, Serum 1.33 mg/dL (0.55-1.02); EST Glomerular Filtration Rate 41 mL/min (>60); Est Glom Filt Rate - Afr Amer 50 mL/min (>60); Globulin 3.6 g/dL (2.2-4.2); Glucose 144 mg/dL (74-106); Potassium 5.4 mmol/L (3.5-5.1); Protein, Total 6.7 g/dL (6.4-8.2); Sodium Level 142 mmol/L (136-145)
== END | disposition home or self-care (01) ==
LOC: MFPLAB 16:49
PROVIDERS: PCP Family Medicine; Referring Provider Family Medicine; Visit Provider Family Medicine
DX: Z01.818 Encounter for other preprocedural examination (principal)
CPT/HCPCS: 36415; 80053; 85025

== ENCOUNTER → 2021-12-16 | Outpatient (CLI) | payer MEDICARE, SELFPAY ==
[2021-12-16 17:43] LABS: Absolute Lymphocyte Count 1.85 X10^3/uL (0.83-4.51); Absolute Neutrophil Count 7.2 X10^3/uL (2.0-7.7); Basophil# 0.03 X10^3/uL; Basophil% 0.3 % (0-1); Eosinophil# 0.29 X10^3/uL; Eosinophils% 2.9 % (0-5); Hemoglobin 11.6 g/dL (12.0-15.0); Lymphocyte # 1.85 X10^3/ul (0.83-4.51); Lymphocyte % 18.3 % (19-41); Mean Corp Hgb Conc 31.4 g/dL (32-36); Mean Corpuscular Hgb 30.7 pg (27.0-32.0); Mean Corpuscular Volume 97.9 fL (81-99); Monocyte# 0.63 X10^3/uL; Monocyte% 6.2 % (0-10); NRBC Flagged by Analyzer 0 % (0-5); Neutrophil # 7.24 X10^3/uL (2.7-7.7); Neutrophil % 71.8 % (47-70); Platelet Count 260 K/mm3 (150-450); RBC Distribution Width CV 13.1 % (11.6-14.6); RBC Distribution Width SD 46.7 fl (35.1-43.9); Red Blood Count 3.78 M/mm3 (4.2-5.4); White Blood Count 10.1 K/mm3 (4.4-11.0)
[2021-12-16 18:08] LABS: ALB/GLOB Ratio 0.7 RATIO (0.9-2.4); AST(SGOT) 17 U/L (15-37); Alanine Aminotransfer ALT/SGPT 21 U/L (13-56); Alkaline Phosphatase 116 U/L (45-117); Anion Gap 6 (5-15); BUN 32 mg/dL (7-18); Calcium,Total 9.6 mg/dL (8.5-10.1); Chloride 105 mmol/L (98-107); Creatinine, Serum 1.28 mg/dL (0.55-1.02); EST Glomerular Filtration Rate 43 mL/min (>60); Est Glom Filt Rate - Afr Amer 52 mL/min (>60); Globulin 4.3 g/dL (2.2-4.2); Glucose 134 mg/dL (74-106); Potassium 5.3 mmol/L (3.5-5.1); Protein, Total 7.3 g/dL (6.4-8.2); Sodium Level 138 mmol/L (136-145)
== END | disposition home or self-care (01) ==
LOC: MFPLAB 14:42
PROVIDERS: PCP Family Medicine; Referring Provider Family Medicine; Visit Provider Family Medicine
DX: Z01.818 Encounter for other preprocedural examination (principal)
CPT/HCPCS: 36415; 80053; 85025

== ENCOUNTER 2021-12-22 10:11 | Day surgery (SDC) | payer MEDICARE, SELFPAY ==
[2021-12-22] VITALS (7 sets, daily range): BP systolic 123–145; BP diastolic 56–72; PULSE 62–80; RESP 16–18; TEMP 35.6–36.1; O2SAT 93–100; BMI 41.8
--- NOTE | 2021-12-22 10:45 | RAD_ITS ---
STUDY: X-RAY LEFT FOOT, THERE TOE REASON FOR EXAM: Female, 76 years old. Pain. TECHNIQUE: 3 intraprocedural digital documentation view(s) of the toe were obtained. COMPARISON: None. FINDINGS: 3 intraprocedural digital documentation views were obtained. Total exposure time 3 seconds. Longest single exposure one second. Total DAP 0.2328 cGy/cm2. Total Air Kerma 0.0139 mGy. RAD/Toe(s) Min 2 Views IMPRESSION: Intraprocedural digital documentation views as described. Electronically Signed: Giovanni Galloway, at 13:48 EDT ,
[2021-12-22] MEDS: Lactated Ringers 1,000 ML 15 ML IV (11:25)
[2021-12-22 11:30] LABS: Bedside Glucose 137 mg/dL (74-106)
[2021-12-22] MEDS: Cefazolin 2 GM in 0.9% Normal Saline 100 ML IV (11:38)
--- NOTE | 2021-12-22 11:45 | AMP_PTH ---
PATIENT: CATHERINE STOVER LOC: [facility] [place][id number] AGE/SX: 76/F ROOM: RE12/22/[address]: Dr. Angel Bazan DPM : 1945 BED: DIS: 12/22/2021 SPEC #: [id number] RECD: 12/22/21 13:13 STATUS: AMAURY REJaydon #: [id number] MICHAEL: 12/22/21 11:[address]: Angel Bazan DEPT: SURGICAL PATHOLOGY RECD BY: Ashley Desouza ENTERED: 12/22/21 13:23 SP TYPE: Amputation OTHR DR: Dr. Flavia Aldrich MD Tissues: A - Toe, NOS B - Toe, NOS Procedures: Decalcification bone/plaque Surgery Specimen Level III Surgery Specimen Level IV HEADER OPERATION: Amputation fifth toe PRE-OP DIAGNOSIS: Left fifth toe amputation, left fifth toe nonhealing ulcer, osteomyelitis TISSUE SUBMITTED: A - Left fifth toe, B - Left fifth toe proximal phalanx MICROSCOPIC DIAGNOSIS A. Left fifth toe, amputation: Focal granulation tissue reaction. Underlying bone, negative for acute osteomyelitis. B. Left fifth toe proximal phalanx: A piece of bone with reactive changes, negative for acute osteomyelitis. NKECHI:jerel 12/28/2021 MICROSCOPIC DESCRIPTION Slides are reviewed. GROSS DESCRIPTION A - Received in fixative is one container labeled with the patient's name and designated left fifth toe. The specimen consists of a portion of toe measuring 2 x 1.5 x 1 cm. Also present in the container is a detached piece of skin with underlying tissue measuring 2.5 x 1.5 x 1 cm. The nail is present which appears atrophic. Knotter Hand sections are submitted in two cassettes as follows: 1 - skin including nail, 2 - underlying bone after decalcification. B - Received in fixative is one container labeled with the patient's name and designated left fifth toe proximal phalanx. The specimen consists of a piece of bone measuring 0.7 x 0.6 x 0.4 cm. The entire specimen is submitted in one cassette after decalcification. / NKECHI:jerel 12/22/2021 TC:5 CPT: 49478, 72694, 27268 x2
--- NOTE | 2021-12-22 12:34 | PCM.OP.BLANK ---
Problems Associated Problem List Diagnoses (1) Non-pressure chronic ulcer of other part of left foot with fat layer exposed: (2) Osteomyelitis of foot, left, acute: Operative Report Date of Procedure: 12/22/21 Surgeon: Angel Bazan D.P.M. Grounds Crew Supervisor Manuel OHARA PGY1 D.P.M. Preoperative diagnosis chronic ulceration with possible bone infection left fifth toe interspace postoperative diagnosis same Procedure partial amputation left fifth toe Anesthesia: MAC with local digital block Hemostasis: Ankle tourniquet total tourniquet time 28 minutes Estimated blood loss: Minimal Materials: None retained Injectables 10 cc quarter percent Marcaine plain using a left fifth digital block Clinical decision making: Patient had chronic ulceration to left fifth toe was treated by wound care center different provider. Patient was instructed that she was healed. Patient presented to my office as an outpatient. Patient demonstrated residual ulceration a probe directly to bone. There are radiographic signs of erosions the bone. At that time it made decision to proceed with partial toe amputation this was discussed with patient in great detail. From this point on the patient was lost for several months prior to performance of this procedure and did not follow-up clinically. We were finally able to coordinate a surgical date as today 12/22/2021 for the partial hallux amputation. Upon repeat examination there was no acute signs of infection or worsening of the bony erosive changes. Since there is no progression the patient has been off antibiotics did not place her on any additional antibiotics. Procedure in detail: Patient brought back to the operating room procedures performed on the cart. Patient induced under MAC anesthesia. Well-padded left ankle tourniquet applied. Sterile digital block to the fifth digit using 10 cc quarter percent Marcaine plain performed. Left lower extremity scrubbed prepped draped using typical aseptic manner. Left lower extremity elevated exsanguinated tourniquet inflated to 50 mmHg total tourniquet time was 28 minutes. A fishmouth incision was drawn excising the interdigital ulceration and the distal aspect of the fifth digit including the distal and middle phalanx as well as the head of the proximal phalanx. This incision was made full-thickness down to the level of bone using a 15 blade the fifth digit was disarticulated at the level of the proximal interphalangeal joint this tissue was sent to pathology for further examination the proximal phalangeal head was removed and then split half was sent to pathology and half was sent to culture. Site was examined there were no acute signs of infection or additional tissue breakdown. Swab cultures were obtained. Site was flushed with copious amounts of normal sterile saline. There is no to be healthy bleeding to the tissue site. Incision was closed using 3-0 Prolene in simple interrupted technique. Dressed with Betadine Adaptic 4 x 4's Kerlix and Manas bandage. Again tourniquet was let down total tourniquet time was 28 minutes. Patient tolerated procedure and anesthesia well in apparent satisfactory condition. Patient was transferred to PACU vital signs stable and vascular status intact admitted for further monitoring prior to discharge. Patient will be discharged maintain an heel weightbearing status assisted by a cam walking boot and walker until follow-up in 1 week at which time we will remove her dressing and examined the site. Due to no acute signs of infection we will hold off on antibiotics and observe the cultures closely. Pathologic specimens left fifth toe, left proximal phalangeal head Microbiology specimens left proximal phalangeal head fifth toe, swab cultures left fifth toe Complications none
[2021-12-22 13:10] LABS: Bedside Glucose 133 mg/dL (74-106)
== END 2021-12-22 13:52 | disposition home or self-care (01) ==
LOC: SDC 10:12 → AC 10:15
PROVIDERS: PCP Internal Medicine; Referring Provider Podiatrist; Visit Provider Podiatrist
PROC: (CPT 28825; principal; 2021-12-22 11:30)
DX: M86.172 Other acute osteomyelitis, left ankle and foot (principal); L97.522 Non-pressure chronic ulcer of other part of left foot with fat layer exposed; E11.21 Type 2 diabetes mellitus with diabetic nephropathy; Z68.41 Body mass index [BMI] 40.0-44.9, adult; N18.30 Chronic kidney disease, stage 3 unspecified; E66.9 Obesity, unspecified; K21.9 Gastro-esophageal reflux disease without esophagitis; G47.33 Obstructive sleep apnea (adult) (pediatric); E03.9 Hypothyroidism, unspecified; Z99.81 Dependence on supplemental oxygen; Z86.718 Personal history of other venous thrombosis and embolism
CPT/HCPCS: 28825; 01470; 73660; 76000; 82962; 87070; 87075; 87077; 87176; 87205; 88304; 88305; 88311; J7120; J2405

== ENCOUNTER 2022-02-27 18:06 | Inpatient (IN) | payer MEDICARE, SELFPAY ==
[2022-02-27 18:09] VITALS: BP 100/43; PULSE 69; RESP 16; TEMP 36.1; O2SAT 95; BMI 42.7
[2022-02-27] MEDS: 0.9% Normal Saline 1,000 ML 1000 ML IV (18:40)
--- NOTE | 2022-02-27 19:11 | EDS_ITS ---
HPI History of Present Illness Chief Complaint: Hypoglycemia Informant: patient Onset/Context/Timing Onset: Today Context: Gradual Onset Current Severity: Mild Maximum Severity: Moderate Narrative Narrative: 76 year-old female history diabetes, stroke, chronic kidney disease, DVT currently on no blood thinners. Has not felt well for about a week with intermittent nausea vomiting and diarrhea. Has not been eating much because has not felt like it. Today and change in mental status had a low blood sugar 39 squad was called gave her glucose which increases to 82 and then brought her in. She is also had a cough. Reportedly negative COVID test at home. She has been generally weak. No headache. No chest pain. No abdominal pain. No dysuria. Prior similar symptoms: Yes Recent Illness/Hospitalization: No PFSH PFSH Medical History Acute ischemic left middle cerebral artery (MCA) stroke Aphasia Arthritis BPPV (benign paroxysmal positional vertigo) Cardiology follow-up encounter Cerebrovascular accident involving cerebellum CKD (chronic kidney disease), stage III Closed fracture of left hip requiring operative repair Depression Diabetes mellitus, type II Diabetic nephropathy Dietary restriction DVT (deep venous thrombosis) Dysarthria Dysmetabolic syndrome X Easy bruising Essential hypertension GERD (gastroesophageal reflux disease) Grade II diastolic dysfunction History of DVT (deep vein thrombosis) History of echocardiogram History of hip fracture HLD (hyperlipidemia) Hypothyroid Hypoxia Intertrigo Iron deficiency Left atrial enlargement Morbid obesity with BMI of 40.0-44.9, adult Non-smoker Normochromic normocytic anemia Occlusion of right vertebral artery On home oxygen therapy Physical debility Proteinuria Seasonal allergies Sleep-disordered breathing Urinary tract infection Walker as ambulation aid Wears glasses Home Medications multivitamin 1 ea PO DAILY supplement 09/08/16 [History Last Taken 06/15/19] sitagliptin phosphate 50 mg tablet (Januvia) 50 mg PO DAILY diabetes 06/16/19 [History Last Taken 06/15/19] fish oil-dha-epa 1,200 mg-144 mg-216 mg capsule 1,200 cap PO DAILY Supplement 09/01/19 [History Last Taken Unknown] fluticasone propionate 50 mcg/actuation nasal spray,suspension (Allergy Relief (fluticasone)) 2 spray intranasal DAILY Allergy Relief 09/01/19 [History Last Taken 12/22/21] atenolol 50 mg tablet 25 mg PO QHS Blood Pressure 09/17/20 [History Last Taken Unknown] atorvastatin 40 mg tablet 40 mg PO QHS Cholesterol 09/17/20 [History Last Taken Unknown] glimepiride 1 mg tablet 1 mg PO DAILY Diabetes 09/17/20 [History Last Taken Unknown] losartan 100 mg tablet 100 mg PO DAILY Blood Pressure 09/17/20 [History Last Taken 12/22/21] magnesium oxide 400 mg (241.3 mg magnesium) tablet 400 mg PO DAILYCM Supplement 09/17/20 [History Last Taken Unknown] nifedipine 30 mg tablet,extended release 24 hr 30 mg PO DAILY Blood Pressure 09/17/20 [History Last Taken 12/22/21] nystatin 100,000 unit/gram topical powder (Nyamyc) 1 applic topical BID Redness 09/17/20 [History Last Taken Unknown] sennosides 8.6 mg-docusate sodium 50 mg tablet 2 tab-cap PO Q OTHER DAY Constipation 09/17/20 [History Last Taken Unknown] sertraline 50 mg tablet 50 mg PO DAILY Mood 09/17/20 [History Last Taken Unknown] aspirin 81 mg tablet,delayed release 81 mg PO BREAKFAST #0 tabs 10/06/20 [Rx Last Taken Unknown] esomeprazole magnesium 20 mg capsule,delayed release (Nexium) 20 mg PO DAILY 03/10/21 [History Last Taken Unknown] levothyroxine 25 mcg tablet 125 mcg PO DAILY Thyroid 03/10/21 [History Last Taken 12/22/21] ondansetron 4 mg disintegrating tablet 4 mg PO Q8H PRN nausea and vomiting #14 tabs 12/22/21 [Rx Last Taken Unknown] oxycodone 5 mg capsule 5 mg PO Q6H PRN pain 7 days #28 caps 12/22/21 [Rx Last Taken Unknown] Allergy/AdvReac Type Severity Reaction Status Date / Time adhesive tape Allergy Intermediate Unknown Verified 12/22/21 10:44 Sulfa (Sulfonamide Allergy Rash Verified 12/22/21 10:44 Antibiotics) lisinopril AdvReac cough Verified 12/22/21 10:44 Family History Grandfather Alcoholism Mother Angina at rest Arthritis Diabetes Myocardial infarction, Onset Age: 40 another @70 Heart disease Hypertension Sister Arthritis Bleeding disorder Blood clots Non Hodgkin's lymphoma Kidney cysts Osteoporosis Thyroid disorder Surgical History History of cataract extraction Social History household members: none Smoking Status: Never smoker alcohol intake: former details: Social substance use type: does not use ROS ROS ED ROS Narrative Intermittent nausea, vomiting and diarrhea. Decreased appetite. Cough. Review of Systems ROS Unobtainable: Denies due to encephalopathy Constitutional Constitutional ED: Reports fever(s); Denies chills Eyes Eyes: Denies blurry vision ENT ENT ED: Denies ear pain Cardiovascular Cardiovascular: Denies chest pain Respiratory/Chest Respiratory/Chest: Reports cough Gastrointestinal Gastrointestinal: Reports diarrhea, nausea and vomiting; Denies abdominal pain, constipation or melena Genitourinary Genitourinary ED: Denies dysuria or hematuria Musculoskeletal Musculoskeletal: Denies arthralgias Integumentary Denies abscess Neurologic Neurologic: Denies headache(s) Psychiatric Psychiatric: Denies anxiety Endocrine Endocrinology: Denies cold intolerance Hematologic/Lymphatic Hematologic/Lymphatic: Reports none Allergic/Immunologic Allergic/Immunologic ED: Denies mouth swelling or tongue swelling EXAM Physical Exam Narrative Exam Narrative: 76-year-old female vital signs are stable patient is afebrile. Pulse ox 95% on room air no signs hypoxia. HEENT exam unremarkable. Mildly dry mucous membranes. No facial droop. No trauma. Neck nontender. No lymphadenopathy. Lungs clear to auscultation bilaterally. Coarse breath sounds at bases. No rales or rhonchi. Heart regular rhythm rate about 70 no murmur. Abdomen soft nontender. Moving all 4 extremities. Calves are nontender without edema or cords. Neurologically she is awake and alert. Answering questions and following commands. No motor deficits. Const Vital Signs: 02/27/22 18:09 02/27/22 18:13 02/27/22 21:08 Temperature 96.9 F L Temperature Source Temporal Pulse Rate 69 76 Respiratory Rate 16 18 Respiratory Effort Normal Non-Labored Respiratory Pattern Normal Blood Pressure 100/43 L 119/54 L Blood Pressure Mean 62 75 Pulse Ox 95 92 Oxygen Delivery Method Room Air Room Air 02/27/22 22:15 Temperature Temperature Source Pulse Rate Respiratory Rate 18 Respiratory Effort Respiratory Pattern Blood Pressure 106/51 L Blood Pressure Mean 69 Pulse Ox 93 Oxygen Delivery Method Room Air Positive well nourished, well developed and obese; Negative for cachectic, contractures or unkempt General Appearance ED: well developed and NAD; Negative for unkempt, cachectic, contractures, cyanotic or diaphoretic Nutritional Appearance: obese; Negative for cachectic HEENT Reports dry mucous membranes; Denies moist mucous membranes Negative for trauma or tenderness Mouth ED: Yes dry mucous membranes Mouth: dry mucous membranes Eyes PERRL and EOMs intact bilaterally General Eye ED: Negative for pale conjunctiva or scleral icterus Neck no lymphadenopathy, supple and no JVD General: Negative for tenderness Chest Wall inspection of chest normal and palpation of chest normal Chest: Negative for other Resp normal respiratory effort and clear to auscultation bilaterally Effort and Inspection: Negative for retractions Auscultation: Negative for rales, rhonchi or wheezes Cardio regular rate, regular rhythm, S1 normal heart sound, S2 normal heart sound and no murmurs Rate: Negative for bradycardia or tachycardic GI normal to inspection, nondistended, normoactive bowel sounds, non-tender, non- distended and no masses Auscultation: normoactive bowel sounds Palpation: soft; Negative for tender or guarding Back/Spine no CVA tenderness General Back: Negative for CVA tenderness Cervical Spine: Negative for cervical spine tenderness Thoracic Spine / Upper Back: Negative for thoracic spinal tenderness Lumbar Spine / Lower Back: Negative for lumbar spinal tenderness Extremity normal to inspection General Extremety ED: Negative for edema or tenderness General Extremity: Negative for edema Neuro oriented x3 and CN's II-XII intact bilaterally Sensorium / Orientation: alert; Negative for orientation impaired, lethargic or stuporous Motor Exam: strength 5/5 throughout; Negative for general weakness Psych mental status grossly normal Appearance: Negative for unkempt Attitude: No agitated Mood & Affect: Negative for depressed, anxious or tearful Skin no rashes or lesions noted and no wounds General Skin Exam: elasticity normal Rashes: No rashes noted Trauma: Negative for abrasion Wounds: Negative for wounds noted MDM MDM MDM Narrative Medical decision making narrative: 76-year-old diabetic with recent illness is likely viral with decreased appetite, nausea diarrhea. Today had a hypoglycemic event. She was treated by squad with glucose. Exam benign. Will be worked up for an infectious etiology. IV fluids. Patient's had 3 episodes total which she became hypoglycemic 1 prior to arrival treated by the squad, the second 1 here treated with an amp of D 25. The third 1 here again treated with IV dextrose. I have spoken to the hospitalist she will be admitted for recurrent hypoglycemia. She is not on insulin she is on oral hypoglycemics at home and Januvia. Lab Data Attestation: I reviewed the patient's lab results. Lab results narrative: White count 6.1. H&H 11.4 and 36. Platelets 429. Electrolytes sodium 135. Potassium 3.4. Gap 12. BUN and creatinine of 82 and 1.98 consistent with acute on chronic renal sufficiency and acute dehydration. Liver enzymes normal. UA contaminated with 5-10 but there is cells. Small white cells. Rare bacteria. No nitrites. I think this is contaminated. Labs: Laboratory Results - last 24 hr 02/27/22 02/27/22 02/27/22 18:35 18:35 20:46 WBC 6.1 RBC 3.92 L Hgb 11.4 L Hct 36.0 L MCV 91.8 MCH 29.1 MCHC 31.7 L RDW Std Deviation 46.1 H RDW Coeff of Umu 13.6 Plt Count 429 MPV 10.1 Immature Gran % (Auto) 0.700 Neut % (Auto) 80.8 H Lymph % (Auto) 7.2 L [place] % (Auto) 9.6 Eos % (Auto) 1.0 Baso % (Auto) 0.7 Absolute Neuts (auto) 5.0 Absolute Lymphs (auto) 0.44 L Nucleated RBC % 0 Differential Comment SCANNED Sodium 135 L Potassium 3.4 L Chloride 97 L Carbon Dioxide 26.0 Anion Gap 12 BUN 82 H Creatinine 1.98 H Estim Creat Clear Calc 17.09 Est GFR (MDRD) Af Amer 31 L Est GFR (MDRD) Non-Af 26 L BUN/Creatinine Ratio 41.4 H Glucose 79 Calcium 9.0 Total Bilirubin 0.30 AST 29 ALT 25 Alkaline Phosphatase 113 Total Protein 7.0 Albumin 2.3 L Globulin 4.7 H Albumin/Globulin Ratio 0.5 L Urine Color Urine Clarity Urine pH Ur Specific Gilbert Urine Protein Urine Glucose (UA) Urine Ketones Urine Occult Blood Urine Nitrite Urine Bilirubin Urine Urobilinogen Ur Leukocyte Esterase Urine RBC Urine WBC Ur Squamous Epith Cells Amorphous Sediment Urine Bacteria Urine Mucus POC Glucose 26 L* 11/02/27/22 02/27/22 20:59 21:50 22:14 WBC RBC Hgb Hct MCV MCH MCHC RDW Std Deviation RDW Coeff of Umu Plt Count MPV Immature Gran % (Auto) Neut % (Auto) Lymph % (Auto) [place] % (Auto) Eos % (Auto) Baso % (Auto) Absolute Neuts (auto) Absolute Lymphs (auto) Nucleated RBC % Differential Comment Sodium Potassium Chloride Carbon Dioxide Anion Gap BUN Creatinine Estim Creat Clear Calc Est GFR (MDRD) Af Amer Est GFR (MDRD) Non-Af BUN/Creatinine Ratio Glucose Calcium Total Bilirubin AST ALT Alkaline Phosphatase Total Protein Albumin Globulin Albumin/Globulin Ratio Urine Color Yellow Urine Clarity Sl. Cloudy Urine pH 5.0 Ur Specific Gilbert 1.015 Urine Protein Negative Urine Glucose (UA) Normal Urine Ketones Negative Urine Occult Blood Negative Urine Nitrite Negative Urine Bilirubin 1 H Urine Urobilinogen Normal Ur Leukocyte Esterase 500 H Urine RBC 0-5 SEEN Urine WBC 10-25 SEEN Ur Squamous Epith Cells 5-10 SEEN Amorphous Sediment 1+ URATE Urine Bacteria RARE Urine Mucus 0 SEEN POC Glucose 86 51 L Radiography Chest X-Ray - ED: 1 View, Read by ED Physician, Read by Radiologist, Heart, Mediastinum, Bony Structures, No Acute Disease and Left Infiltrate Diagnostic Testing: Clinical Impression(s) from Imaging Studies Chest X-Ray 02/27/22 19:35 IMPRESSION: Left lower lung infiltrate. Electronically Signed: Alex Rivas MD at 19:54 EST , Chest x-ray, portable, single view interpreted by self and the radiologist there is a questionable left lower lobe infiltrate. This may be soft tissue shadowing. I am getting a lateral to better define it. Discharge Plan Dx/Rx/DC Orders Clinical Impression: Hypoglycemia due to type 2 diabetes mellitus, Diarrhea, Viral syndrome, Acute dehydration Disposition Disposition: Acute Care [facility]
[2022-02-27 19:21] LABS: Absolute Lymphocyte Count 0.44 X10^3/uL (0.83-4.51); Basophil# 0.04 X10^3/uL; Basophil% 0.7 % (0-1); Eosinophil# 0.06 X10^3/uL; Hemoglobin 11.4 g/dL (12.0-15.0); Lymphocyte # 0.44 X10^3/ul (0.83-4.51); Lymphocyte % 7.2 % (19-41); Mean Corp Hgb Conc 31.7 g/dL (32-36); Mean Corpuscular Hgb 29.1 pg (27.0-32.0); Mean Corpuscular Volume 91.8 fL (81-99); Mean Platelet Vol. 10.1 fl (6.2-12.0); Monocyte# 0.59 X10^3/uL; Monocyte% 9.6 % (0-10); NRBC Flagged by Analyzer 0 % (0-5); Neutrophil # 4.95 X10^3/uL (2.7-7.7); Neutrophil % 80.8 % (47-70); POSITIVE COUNT YES; POSITIVE DIFFERENTIAL YES; POSITIVE MORPHOLOGY YES; Platelet Count 429 K/mm3 (150-450); RBC Distribution Width CV 13.6 % (11.6-14.6); RBC Distribution Width SD 46.1 fl (35.1-43.9); Red Blood Count 3.92 M/mm3 (4.2-5.4); White Blood Count 6.1 K/mm3 (4.4-11.0)
[2022-02-27 19:22] LABS: Differential Indicated SCAN CRITERIA MET
--- NOTE | 2022-02-27 19:35 | RAD_ITS ---
STUDY: X-RAY CHEST REASON FOR EXAM: Female, 76 years old. Cough TECHNIQUE: Single AP portable view of the chest. COMPARISON: September 16, 2020. FINDINGS: There is a mild left lower lung airspace increased opacities. There is left lower lung calcification. There is no demonstrated pleural abnormality. Normal size heart. Normal mediastinum and pako. Normal visualized pulmonary arteries. There is atherosclerotic calcification of the aortic arch with tortuosity. There are diffuse degenerative changes of the visualized thoracic spine. Normal visualized ribs, clavicles, and shoulders. There is no demonstrated abnormality of the visualized soft tissue structures of the upper abdomen. RAD/Chest 1 View (Portable) IMPRESSION: Left lower lung infiltrate. Electronically Signed: Alex Rivas MD at 19:54 EST ,
[2022-02-27 19:41] LABS: Differential Comment SCANNED
[2022-02-27 19:54] LABS: ALB/GLOB Ratio 0.5 RATIO (0.9-2.4); AST(SGOT) 29 U/L (15-37); Alanine Aminotransfer ALT/SGPT 25 U/L (13-56); Albumin, Serum 2.3 g/dL (3.2-5.0); Alkaline Phosphatase 113 U/L (45-117); Anion Gap 12 (5-15); BUN 82 mg/dL (7-18); BUN/Creat Ratio 41.4 RATIO (10-20); Chloride 97 mmol/L (98-107); Creatinine, Serum 1.98 mg/dL (0.55-1.02); EST Glomerular Filtration Rate 26 mL/min (>60); Est Glom Filt Rate - Afr Amer 31 mL/min (>60); Estimated Creatinine Clearance 17.09 ml/min; Globulin 4.7 g/dL (2.2-4.2); Glucose 79 mg/dL (74-106); Potassium 3.4 mmol/L (3.5-5.1); Sodium Level 135 mmol/L (136-145)
--- NOTE | 2022-02-27 20:46 | NURSING ---
assisted pt up to [facility], pt not following directions and was confused. pt blood glucose check 26 Doctor updated ordered amp D50. gave pt 8oz orange juice at this time.
[2022-02-27] MEDS: Dextrose 50%-Water 25 GM/50 ML DISP.SYRIN IV ×2 (20:53→22:33)
[2022-02-27 21:06] LABS: Bedside Glucose 26 mg/dL (74-106)
[2022-02-27 21:08] VITALS: BP 119/54; PULSE 76; RESP 18; O2SAT 92
[2022-02-27 21:15] LABS: Mucous, Urine 0 SEEN /hpf (<or=2+)
[2022-02-27 21:22] LABS: Color, Urine Yellow (Yellow); Glucose, Dipstick Normal (Normal); Ketone-Dipstick Negative (Negative); Leukocyte Esterase-Dipstick 500 /ul (Negative); Nitrite-Dipstick Negative (Negative); Occult Blood-Urine Negative /ul (Negative); Protein-Dipstick Negative (Negative); Specific Gravity, Urine 1.015 (1.002-1.030); Urine Clarity Sl. Cloudy (Clear); Urine Urobilinogen Normal (Normal)
[2022-02-27 21:29] LABS: Urine Bilirubin Dipstick 1 mg/dL (Negative)
[2022-02-27 21:30] LABS: Bacteria RARE /hpf (None Seen); Red Blood Cells-Urine 0-5 SEEN /hpf (0-5); Squamous Epithelial Cells - UA 5-10 SEEN /hpf (5-10); White Blood Cells 10-25 SEEN /hpf (0-5)
[2022-02-27 21:31] LABS: Amorphous Sediment 1+ URATE
[2022-02-27 22:10] LABS: Bedside Glucose 86 mg/dL (74-106)
[2022-02-27 22:15] VITALS: BP 106/51; RESP 18; O2SAT 93
[2022-02-27 22:35] LABS: Bedside Glucose 51 mg/dL (74-106)
--- NOTE | 2022-02-27 22:50 | RAD_ITS ---
INDICATION: lateral view please. ?? Pneumonia on portable EXAMINATION/TECHNIQUE: X-RAY - XR Chest 1 View COMPARISON: AP portable chest x-ray earlier same date FINDINGS: Lateral view locates the airspace disease in the left lower lobe with blunting of the left costophrenic angle and posterior sulcus. RAD/Chest 1 View IMPRESSION: Left lower lobe infiltrate with pleural effusion. Findings consistent with pneumonia. Electronically Signed: Moisés Vo MD at 23:22 EST ,
--- NOTE | 2022-02-27 23:05 | PCM.HP.STD ---
HPI - General General Date of Admission: 02/27/22 Date of Service: 02/27/22 Chief Complaint: Low blood sugar HPI Narrative CATHERINE STOVER, is a 76 F who presents to the emergency room by carlos with chief complaint of low blood sugar. Patient has had generalized illness and weakness for the past week and has not had much of an appetite. Upon arrival carlos measured her blood sugar to be 37 and gave her glucose. Patient denies taking any insulin or extra medications, she denies any chest pain, shortness of breath or fevers or chills. She does ,however, feel weak and has a poor appetite. While being observed in the emergency room her blood sugar dropped into the 20s and she required an amp of D50. Laboratory studies are otherwise unremarkable and she will be admitted overnight for observation and management of low blood sugars. [facility] Medical History Acute ischemic left middle cerebral artery (MCA) stroke Aphasia Arthritis BPPV (benign paroxysmal positional vertigo) Cardiology follow-up encounter Cerebrovascular accident involving cerebellum CKD (chronic kidney disease), stage III Closed fracture of left hip requiring operative repair Depression Diabetes mellitus, type II Diabetic nephropathy Dietary restriction DVT (deep venous thrombosis) Dysarthria Dysmetabolic syndrome X Easy bruising Essential hypertension GERD (gastroesophageal reflux disease) Grade II diastolic dysfunction History of DVT (deep vein thrombosis) History of echocardiogram History of hip fracture HLD (hyperlipidemia) Hypothyroid Hypoxia Intertrigo Iron deficiency Left atrial enlargement Morbid obesity with BMI of 40.0-44.9, adult Non-smoker Normochromic normocytic anemia Occlusion of right vertebral artery On home oxygen therapy Physical debility Proteinuria Seasonal allergies Sleep-disordered breathing Urinary tract infection Walker as ambulation aid Wears glasses Home Medications multivitamin 1 ea PO DAILY supplement 09/08/16 [History Last Taken 06/15/19] sitagliptin phosphate 50 mg tablet (Januvia) 50 mg PO DAILY diabetes 06/16/19 [History Last Taken 06/15/19] fish oil-dha-epa 1,200 mg-144 mg-216 mg capsule 1,200 cap PO DAILY Supplement 09/01/19 [History Last Taken Unknown] fluticasone propionate 50 mcg/actuation nasal spray,suspension (Allergy Relief (fluticasone)) 2 spray intranasal DAILY Allergy Relief 09/01/19 [History Last Taken 12/22/21] atenolol 50 mg tablet 25 mg PO QHS Blood Pressure 09/17/20 [History Last Taken Unknown] atorvastatin 40 mg tablet 40 mg PO QHS Cholesterol 09/17/20 [History Last Taken Unknown] glimepiride 1 mg tablet 1 mg PO DAILY Diabetes 09/17/20 [History Last Taken Unknown] losartan 100 mg tablet 100 mg PO DAILY Blood Pressure 09/17/20 [History Last Taken 12/22/21] magnesium oxide 400 mg (241.3 mg magnesium) tablet 400 mg PO DAILYCM Supplement 09/17/20 [History Last Taken Unknown] nifedipine 30 mg tablet,extended release 24 hr 30 mg PO DAILY Blood Pressure 09/17/20 [History Last Taken 12/22/21] nystatin 100,000 unit/gram topical powder ([facility]) 1 applic topical BID Redness 09/17/20 [History Last Taken Unknown] sennosides 8.6 mg-docusate sodium 50 mg tablet 2 tab-cap PO Q OTHER DAY Constipation 09/17/20 [History Last Taken Unknown] sertraline 50 mg tablet 50 mg PO DAILY Mood 09/17/20 [History Last Taken Unknown] aspirin 81 mg tablet,delayed release 81 mg PO BREAKFAST #0 tabs 10/06/20 [Rx Last Taken Unknown] esomeprazole magnesium 20 mg capsule,delayed release (Nexium) 20 mg PO DAILY 03/10/21 [History Last Taken Unknown] levothyroxine 25 mcg tablet 125 mcg PO DAILY Thyroid 03/10/21 [History Last Taken 12/22/21] ondansetron 4 mg disintegrating tablet 4 mg PO Q8H PRN nausea and vomiting #14 tabs 12/22/21 [Rx Last Taken Unknown] oxycodone 5 mg capsule 5 mg PO Q6H PRN pain 7 days #28 caps 12/22/21 [Rx Last Taken Unknown] Allergy/AdvReac Type Severity Reaction Status Date / Time adhesive tape Allergy Intermediate Unknown Verified 12/22/21 10:44 Sulfa (Sulfonamide Allergy Rash Verified 12/22/21 10:44 Antibiotics) lisinopril AdvReac cough Verified 12/22/21 10:44 Family History Grandfather Alcoholism Mother Angina at rest Arthritis Diabetes Myocardial infarction, Onset Age: 40 another @70 Heart disease Hypertension Sister Arthritis Bleeding disorder Blood clots Non Hodgkin's lymphoma Kidney cysts Osteoporosis Thyroid disorder Surgical History History of cataract extraction Social History household members: none Smoking Status: Never smoker alcohol intake: former details: Social substance use type: does not use ROS Constitutional Constitutional: Reports anorexia and weakness Eyes Eyes: Denies blurry vision ENT HEENT: Denies abnormal hearing Cardiovascular Cardiovascular: Denies chest pain Respiratory/Chest Respiratory/Chest: Denies cough Gastrointestinal Gastrointestinal: Denies abdominal pain Genitourinary Genitourinary: Denies dysuria Musculoskeletal Musculoskeletal: Denies back pain Integumentary Integumentary: Denies dry skin Neurologic Neurologic: Denies confusion Psychiatric Psychiatric: Denies anxiety Vital Signs Vital Signs Vital Signs: 02/27/22 18:09 02/27/22 18:13 02/27/22 21:08 Temperature 96.9 F L Temperature Source Temporal Pulse Rate 69 76 Respiratory Rate 16 18 Respiratory Effort Normal Non-Labored Respiratory Pattern Normal Blood Pressure 100/43 L 119/54 L Blood Pressure Mean 62 75 Pulse Ox 95 92 Oxygen Delivery Method Room Air Room Air 02/27/22 22:15 Temperature Temperature Source Pulse Rate Respiratory Rate 18 Respiratory Effort Respiratory Pattern Blood Pressure 106/51 L Blood Pressure Mean 69 Pulse Ox 93 Oxygen Delivery Method Room Air Weight Weight: 218 lb 11.177 oz Body Mass Index (BMI) 42.7 Physical Exam Const oriented x3 and no apparent distress General Appearance: cooperative HEENT normocephalic and head/scalp atraumatic Eyes PERRL and EOMs intact bilaterally Lymph Lymphatic: no lymphadenopathy noted Resp normal respiratory effort, normal air movement and clear to auscultation bilaterally Cardio regular rate, regular rhythm, S1 normal heart sound and S2 normal heart sound GI normal to inspection, nondistended, normoactive bowel sounds, soft to palpation, non-tender and non-distended Extremity normal capillary refill Skin General Skin Exam: no breakdown Neuro CN's II-XII intact bilaterally Psych thought process normal, cooperative and affect normal Results Lab / Micro Data Result Diagrams: 02/27/22 18:35 02/27/22 18:35 Labs: Laboratory Results - last 24 hr 02/27/22 18:35: WBC 6.1, RBC 3.92 L, Hgb 11.4 L, Hct 36.0 L, MCV 91.8, MCH 29.1, MCHC 31.7 L, RDW Std Deviation 46.1 H, RDW Coeff of Umu 13.6, Plt Count 429, MPV 10.1, Immature Gran % (Auto) 0.700, Neut % (Auto) 80.8 H, Lymph % (Auto) 7.2 L, [place] % (Auto) 9.6, Eos % (Auto) 1.0, Baso % (Auto) 0.7, Absolute Neuts (auto) 5.0, Absolute Lymphs (auto) 0.44 L, Nucleated RBC % 0, Differential Comment SCANNED 02/27/22 18:35: Sodium 135 L, Potassium 3.4 L, Chloride 97 L, Carbon Dioxide 26.0, Anion Gap 12, BUN 82 H, Creatinine 1.98 H, Estim Creat Clear Calc 17.09, Est GFR (MDRD) Af Amer 31 L, Est GFR (MDRD) Non-Af 26 L, BUN/Creatinine Ratio 41.4 H, Glucose 79, Calcium 9.0, Total Bilirubin 0.30, AST 29, ALT 25, Alkaline Phosphatase 113, Total Protein 7.0, Albumin 2.3 L, Globulin 4.7 H, Albumin/Globulin Ratio 0.5 L 02/27/22 20:46: POC Glucose 26 L* 02/27/22 20:59: Urine Color Yellow, Urine Clarity Sl. Cloudy, Urine pH 5.0, Ur Specific [place] 1.015, Urine Protein Negative, Urine Glucose (UA) Normal, Urine Ketones Negative, Urine Occult Blood Negative, Urine Nitrite Negative, Urine Bilirubin 1 H, Urine Urobilinogen Normal, Ur Leukocyte Esterase 500 H, Urine RBC 0-5 SEEN, Urine WBC 10-25 SEEN, Ur Squamous Epith Cells 5-10 SEEN, Amorphous Sediment 1+ URATE, Urine Bacteria RARE, Urine Mucus 0 SEEN 02/27/22 21:50: POC Glucose 86 02/27/22 22:14: POC Glucose 51 L Micro: Microbiology 02/27/22 19:17 Nasal Secretion SARS-CoV-2 & FLU Antigen (Rapid) - Final Radiology Impression Chest X-Ray 02/27/22 19:35 IMPRESSION: Left lower lung infiltrate. Electronically Signed: Alex Rivas MD at 19:54 EST , Assessment & Plan Assessment/Plan (1) Hypoglycemia due to type 2 diabetes mellitus: (2) Acute dehydration: (3) Diarrhea: (4) Viral syndrome: PLAN: Plan 1 hyperglycemia secondary to type 2 diabetes and suspect poor p.o. intake?admit patient for observation to general medical floor, IV D5 half-normal saline with 20 of K at 75 cc/h, repeat BMP in the morning and CBC as well 2. Dehydration secondary to diarrhea?see above IV fluids, if reported loose stools during observation. We will get stool cultures and C. difficile 3. DVT prophylaxis?SCDs Charges/Coding Visit Charges OBSV E&M: 06211 Initial observation care L2
[2022-02-27] MEDS: 0.9% Normal Saline 1,000 ML 999 ML IV (23:09)
[2022-02-27 23:16] LABS: Bedside Glucose 87 mg/dL (74-106)
[2022-02-27 23:38] VITALS: BP 103/45; PULSE 73; RESP 16; TEMP 36.7; O2SAT 95
[2022-02-28] VITALS (32 sets, daily range): BP systolic 86–126; BP diastolic 31–91; PULSE 72–87; RESP 16–23; TEMP 36.3–38.2; O2SAT 88–97; BMI 41.6
[2022-02-28 00:05] LABS: Bedside Glucose 64 mg/dL (74-106)
[2022-02-28 00:20] LABS: Bedside Glucose 69 mg/dL (74-106)
[2022-02-28] MEDS: Dextrose 50%-Water 25 GM/50 ML DISP.SYRIN IV (01:15)
--- NOTE | 2022-02-28 02:17 | NURSING ---
Pts blood sugars not crossing over on labs. Blood glucoses taken by this rn were: 32 at 0056 148 at 0117 149 at 0137
--- NOTE | 2022-02-28 04:39 | NURSING ---
Pts blood sugars: 101 at 0230 100 at 0340 80 at 0438
[2022-02-28] MEDS: Ondansetron ODT 4 MG Tablet PO (05:53)
[2022-02-28 06:23] LABS: Absolute Lymphocyte Count 0.88 X10^3/uL (0.83-4.51); Absolute Neutrophil Count 4.1 X10^3/uL (2.0-7.7); Basophil# 0.08 X10^3/uL; Basophil% 1.5 % (0-1); Eosinophil# 0.06 X10^3/uL; Eosinophils% 1.1 % (0-5); Hematocrit 40.3 % (37-47); Hemoglobin 12.1 g/dL (12.0-15.0); Lymphocyte # 0.88 X10^3/ul (0.83-4.51); Mean Corpuscular Hgb 30.3 pg (27.0-32.0); Mean Platelet Vol. 9.6 fl (6.2-12.0); Monocyte# 0.37 X10^3/uL; Monocyte% 6.7 % (0-10); NRBC Flagged by Analyzer 0 % (0-5); Neutrophil # 4.06 X10^3/uL (2.7-7.7); Neutrophil % 73.8 % (47-70); POSITIVE MORPHOLOGY YES; Platelet Count 350 K/mm3 (150-450); RBC Distribution Width CV 13.7 % (11.6-14.6); RBC Distribution Width SD 51.4 fl (35.1-43.9); Red Blood Count 3.99 M/mm3 (4.2-5.4); White Blood Count 5.5 K/mm3 (4.4-11.0)
[2022-02-28 06:31] LABS: Differential Indicated SCAN CRITERIA MET
--- NOTE | 2022-02-28 06:51 | NURSING ---
Pts blood sugar: 92 at 0552 71 at 0645
[2022-02-28 06:56] LABS: Macrocytosis RARE
[2022-02-28 08:12] LABS: Anion Gap 8 (5-15); BUN 74 mg/dL (7-18); Calcium,Total 8.3 mg/dL (8.5-10.1); Chloride 102 mmol/L (98-107); Creatinine, Serum 1.48 mg/dL (0.55-1.02); EST Glomerular Filtration Rate 36 mL/min (>60); Est Glom Filt Rate - Afr Amer 44 mL/min (>60); Estimated Creatinine Clearance 48.34 ml/min; Glucose 73 mg/dL (74-106); Potassium 3.2 mmol/L (3.5-5.1); Sodium Level 137 mmol/L (136-145)
[2022-02-28] MEDS: Sertraline 50 MG Tablet PO (08:37)
[2022-02-28] MEDS: Aspirin E.C. 81 MG Tablet PO (08:37)
[2022-02-28] MEDS: Pantoprazole Sodium 20 MG Tablet PO (08:37)
[2022-02-28] MEDS: Nystatin Powder 15gm Bottle 1 APPLIC TOPICAL (08:38)
[2022-02-28] MEDS: Fluticasone 0.05% 1 SPRAY NASAL.SRY 2 SPRAY NASAL (08:38)
[2022-02-28] MEDS: Ensure Plus High Protein 120 ML LIQUID PO ×3 (08:38→21:16)
[2022-02-28] MEDS: Potassium Chloride Oral Tablet 20 MEQ 60 MEQ PO (08:40)
[2022-02-28] MEDS: 0.9% Normal Saline 1,000 ML 999 ML IV (09:45)
--- NOTE | 2022-02-28 10:48 | CASEMGMT ---
Per Carlos Eduardo at [facility], pt is active with them and she states that pt's blood sugars have been high lately. Per Carlos Eduardo, she has been trying to get pt to go to technical architect. Dr. Jaramillo updated, voices understanding. Kady [facility] CM
[2022-02-28 12:14] LABS: Bedside Glucose 119 mg/dL (74-106)
[2022-02-28 12:14] LABS: Bedside Glucose 163 mg/dL (74-106)
[2022-02-28 12:14] LABS: Bedside Glucose 32 mg/dL (74-106)
[2022-02-28 12:14] LABS: Bedside Glucose 101 mg/dL (74-106)
[2022-02-28 12:14] LABS: Bedside Glucose 92 mg/dL (74-106)
[2022-02-28 12:14] LABS: Bedside Glucose 80 mg/dL (74-106)
[2022-02-28 12:14] LABS: Bedside Glucose 149 mg/dL (74-106)
[2022-02-28 12:14] LABS: Bedside Glucose 71 mg/dL (74-106)
[2022-02-28 12:14] LABS: Bedside Glucose 100 mg/dL (74-106)
[2022-02-28 12:14] LABS: Bedside Glucose 50 mg/dL (74-106)
[2022-02-28 12:14] LABS: Bedside Glucose 148 mg/dL (74-106)
[2022-02-28 12:14] LABS: Bedside Glucose 90 mg/dL (74-106)
--- NOTE | 2022-02-28 12:40 | PN.HOSP_ITS ---
Subjective Subjective Patient seen and examined. She was admitted with a complaint of hypoglycemia and diarrhea. She was also found to be hypotensive. She has no complaints this morning. She hasnt had any more diarrheal episodes this morning. She denies any nausea, vomiting, fever, chills, chest pain, palpitations, dizziness, nausea, vo miting or diarrhea. Review of systems is otherwise negative. Objective Data Objective Data Vital Signs: Vital Signs Temp Pulse Resp BP Pulse Ox O2 Del Method O2 Flow Rate 100.8 F H 74 18 90/38 L 94 Nasal Cannula 3 02/28/22 11:00 02/28/22 11:00 02/28/22 11:00 02/28/22 11:00 02/28/22 11:00 02/28/22 11:00 02/28/22 11:00 Oxygen Flow Rate (L/min) 3 Oxygen Delivery Method Nasal Cannula Weight: 212 lb 1.355 oz Body Mass Index (BMI) 41.6 Intake & Output: Intake and Output for Last 24 Hours 02/26/22 02/27/22 02/28/22 23:59 23:59 23:59 Intake Total 1000 / 1000 2738.75 / 2738.75 Output Total 200 / 200 Balance 1000 / 1000 2538.75 / 2538.75 Lab / Micro Data Result Diagrams: 02/28/22 05:35 02/28/22 07:50 Labs: Laboratory Results - last 24 hr 02/27/22 18:35: WBC 6.1, RBC 3.92 L, Hgb 11.4 L, Hct 36.0 L, MCV 91.8, MCH 29.1, MCHC 31.7 L, RDW Std Deviation 46.1 H, RDW Coeff of Umu 13.6, Plt Count 429, MPV 10.1, Immature Gran % (Auto) 0.700, Neut % (Auto) 80.8 H, Lymph % (Auto) 7.2 L, [place] % (Auto) 9.6, Eos % (Auto) 1.0, Baso % (Auto) 0.7, Absolute Neuts (auto) 5.0, Absolute Lymphs (auto) 0.44 L, Nucleated RBC % 0, Differential Comment SCANNED 02/27/22 18:35: Sodium 135 L, Potassium 3.4 L, Chloride 97 L, Carbon Dioxide 26.0, Anion Gap 12, BUN 82 H, Creatinine 1.98 H, Estim Creat Clear Calc 17.09, Est GFR (MDRD) Af Amer 31 L, Est GFR (MDRD) Non-Af 26 L, BUN/Creatinine Ratio 41.4 H, Glucose 79, Calcium 9.0, Total Bilirubin 0.30, AST 29, ALT 25, Alkaline Phosphatase 113, Total Protein 7.0, Albumin 2.3 L, Globulin 4.7 H, Albumin/Globulin Ratio 0.5 L 02/27/22 20:46: POC Glucose 26 L* 02/27/22 20:59: Urine Color Yellow, Urine Clarity Sl. Cloudy, Urine pH 5.0, Ur Specific [place] 1.015, Urine Protein Negative, Urine Glucose (UA) Normal, Urine Ketones Negative, Urine Occult Blood Negative, Urine Nitrite Negative, Urine Bilirubin 1 H, Urine Urobilinogen Normal, Ur Leukocyte Esterase 500 H, Urine RBC 0-5 SEEN, Urine WBC 10-25 SEEN, Ur Squamous Epith Cells 5-10 SEEN, Amorphous Sediment 1+ URATE, Urine Bacteria RARE, Urine Mucus 0 SEEN 02/27/22 21:04: POC Glucose 163 H 02/27/22 21:19: POC Glucose 119 H 02/27/22 21:50: POC Glucose 86 02/27/22 22:14: POC Glucose 51 L 02/27/22 22:58: POC Glucose 87 02/27/22 23:42: POC Glucose 64 L 02/28/22 00:03: POC Glucose 69 L 02/28/22 00:30: POC Glucose 50 L 02/28/22 00:56: POC Glucose 32 L* 02/28/22 01:17: POC Glucose 148 H 02/28/22 01:37: POC Glucose 149 H 02/28/22 02:26: POC Glucose 101 02/28/22 03:39: POC Glucose 100 02/28/22 04:36: POC Glucose 80 02/28/22 05:35: WBC 5.5, RBC 3.99 L, Hgb 12.1, Hct 40.3, MCV 101.0 H D, MCH 30.3, MCHC 30.0 L D, RDW Std Deviation 51.4 H, RDW Coeff of Umu 13.7, Plt Count 350, MPV 9.6, Immature Gran % (Auto) 0.900, Neut % (Auto) 73.8 H, Lymph % (Auto) 16.0 L, [place] % (Auto) 6.7, Eos % (Auto) 1.1, Baso % (Auto) 1.5 H, Absolute Neuts (auto) 4.1, Absolute Lymphs (auto) 0.88, Nucleated RBC % 0, Macrocytosis RARE 02/28/22 05:35: Sodium Cancelled, Potassium Cancelled, Chloride Cancelled, Carbon Dioxide Cancelled, Anion Gap Cancelled, BUN Cancelled, Creatinine Cancelled, Estim Creat Clear Calc Cancelled, Est GFR (MDRD) Af Amer Cancelled, Est GFR (MDRD) Non-Af Cancelled, BUN/Creatinine Ratio Cancelled, Glucose Cancelled, Calcium Cancelled 02/28/22 05:52: POC Glucose 92 02/28/22 06:44: POC Glucose 71 L 02/28/22 07:50: Sodium 137, Potassium 3.2 L, Chloride 102, Carbon Dioxide 27.0, Anion Gap 8, BUN 74 H, Creatinine 1.48 H, Estim Creat Clear Calc 48.34, Est GFR (MDRD) Af Amer 44 L, Est GFR (MDRD) Non-Af 36 L, BUN/Creatinine Ratio 50.0 H, Glucose 73 L, Calcium 8.3 L 02/28/22 08:20: POC Glucose 90 Micro: Microbiology 02/28/22 04:05 Stool C. difficile DNA Amplification - Final 02/28/22 04:05 Stool Enteric Bacteriology - Final 02/27/22 19:17 Nasal Secretion SARS-CoV-2 & FLU Antigen (Rapid) - Final Radiography Diagnostic Testing: Radiology Impression Chest X-Ray 02/27/22 19:35 IMPRESSION: Left lower lung infiltrate. Electronically Signed: Alex Rivas MD at 19:54 EST , Chest X-Ray 02/27/22 22:50 IMPRESSION: Left lower lobe infiltrate with pleural effusion. Findings consistent with pneumonia. Electronically Signed: Moisés Vo MD at 23:22 EST , Physical Exam Const alert, oriented x3 and no apparent distress HEENT head/scalp atraumatic, moist oral mucous membranes and oropharynx normal Head and Scalp: normocephalic Mouth: oral and palatal mucosa normal Eyes PERRL and EOMs intact bilaterally Neck no lymphadenopathy and supple Resp normal respiratory effort, no retractions, no use of accessory muscles and clear to auscultation bilaterally Cardio regular rate, regular rhythm, S1 normal heart sound, S2 normal heart sound and no murmurs GI normal to inspection, nondistended, normoactive bowel sounds, soft to palpation, non-tender and non-distended Extremity normal to inspection, full ROM and no clubbing, cyanosis or edema Neuro oriented x3, CN's II-XII intact bilaterally, moves all extremities and no focal motor deficits Sensorium / Orientation: awake and alert Motor Exam: strength 5/5 throughout Psych affect normal Assessment & Plan Assessment/Plan (1) Hypotension: (2) Hypoglycemia: (3) Diarrhea: PLAN: Plan #SHock * patient has been persistently hypotensive, and is not responding to fluids. * Will transfer to ICU * cause of shock is unclear. She has been complaining of diarrhea, so it may be hypovolemic * she also has a low grade fever, so will get blood cultures * start levophed to maintain MAP >65 * start empiric antibiotics in light of persistent hypotension and fever in the event of some occult infection #Diarrhea * patient said she was having persistent diarrhea at home * C diff screen pending. * being hydrated with iVF * #Hypoglycemia * had not been eating or drinking well and still taking her diabetes meds * hold sitagliptin * now eating nd drinking well * ISS. Accuchecks ACHS * #Hypertension: hold BP meds du to hypotension #Hypokalemia: K is 3.2. Will replace and trend #WENDY on CKD: * Cr was 1.98 on admission, baseline Cr is ~ 1.1. likely pre renal due to diarrhea nad decreased intake. * Being hydrated with IVF. * WIll trend CR * * #Paroxysmal afib: hold beta blockers due to hypotension #HYpothyroidism; on synthroid DVT prophylaxis: lovenox Charges/Coding Visit Charges Inpatient E&M: 63600 Subs Hosp L3
[2022-02-28] MEDS: 0.9% Normal Saline 1,000 ML 150 ML IV ×2 (12:45→19:26)
--- NOTE | 2022-02-28 12:50 | NURSING ---
Report called to [facility]. Pt going to ICU room 2
[2022-02-28 13:06] LABS: Bedside Glucose 104 mg/dL (74-106)
--- NOTE | 2022-02-28 15:03 | PHA.PHARE_ITS ---
Consult Pharmacy has been consulted to manage selected antiobiotic: Vancomycin Type of Consult: New start Labs: Sodium 137 mmol/L (136-145) 02/28/22 07:50 Potassium 3.2 mmol/L (3.5-5.1) L 02/28/22 07:50 Chloride 102 mmol/L (98-107) 02/28/22 07:50 Carbon Dioxide 27.0 mmol/L (21.0-32.0) 02/28/22 07:50 Anion Gap 8 (5-15) 02/28/22 07:50 BUN 74 mg/dL (7-18) H 02/28/22 07:50 Creatinine 1.48 mg/dL (0.55-1.02) H 02/28/22 07:50 Est GFR (MDRD) Af Amer 44 mL/min (>60) L 02/28/22 07:50 Est GFR (MDRD) Non-Af 36 mL/min (>60) L 02/28/22 07:50 BUN/Creatinine Ratio 50.0 RATIO (10-20) H 02/28/22 07:50 Glucose 73 mg/dL (74-106) L 02/28/22 07:50 Microbiology: Microbiology 02/28/22 04:05 Stool C. difficile DNA Amplification - Final 02/28/22 04:05 Stool Enteric Bacteriology - Final 02/27/22 19:17 Nasal Secretion SARS-CoV-2 & FLU Antigen (Rapid) - Final Weight used for dosin.2 kg Estimated Creatinine Clearance: 33 ML/MIN Goal Trough: 15-20 mcg/mL Pharmacy Plan for Drug Dosing: Give initial dose of 2000mg IV x1, then continue with 1500mg IV q24h per [facility] dosing protocol. Will order a trough to be drawn before the 3rd dose. The patient's CrCl of 33ml/min was calculated using an adjusted body weight. Pharmacy Service will continue to monitor and adjust dosing as required. Follow-Up Labs: Trough Vancomycin Labs to be done on [date and time ordered]: 03/02/22 14:30
--- NOTE | 2022-02-28 16:15 | EX.PCM.CONCC ---
Assessment & Plan Assessment/Plan (1) Hypotension: (2) SOPHIE (obstructive sleep apnea): PLAN: Plan RECOMMENDATIONS: 1. Fluid boluses with hypotension 2. Continue empiric antibiotics pending cultures 3. Await stool studies 4. Monitor blood sugars closely. Hold baseline hypoglycemics 5. Reinitiate beta-blockers if able given history of A. fib with RVR IMPRESSIONS: 1. Sepsis secondary to possible left-sided pneumonia versus GI Patient with endorgan damage indicated by acute kidney injury. Patient's baseline creatinine is approximately 1.1 and was elevated at 1.98 on presentation. Patient has had decreased p.o. intake and volume loss secondary to diarrhea. This may be the etiology of patient's worsening hypoglycemia. Agree with empiric antibiotics for now. Patient should be given a 30 cc/kg bolus if she develops hypotension prior to initiation of pressor agents. 2. Hypoglycemia Clinical suspicion for iatrogenic issues associated with antihyperglycemia medications in the setting of decreased p.o. intake. Sliding scale insulin has been ordered. Would avoid basal insulin at this time given variable p.o. intake 3. Hypertension/diarrhea/advanced age/morbid obesity/hypokalemia/paroxysmal A. fib/untreated SOPHIE Complicates care, management, recovery and prognosis. Antihypertensives are on hold secondary to problem #1. Would reinitiate beta-vick as first antihypertensive given history of A. fib and concern for RVR. Patient will need PT/OT. Will monitor in the intensive care unit for 24 hours. Possible transfer out of the intensive care unit tomorrow if continues to do well. Patient may need nocturnal oxygen HPI Consult Data Date of Consult: 02/28/22 HPI Narrative Reason for Consultation: Hypotension HPI Narrative: CATHERINE STOVER is a 76 F, with past medical history listed below, who presents to [facility] 02/27/2022 secondary to hypoglycemia and a general sensation of not feeling well over the last week. Patient had reported intermittent nausea, vomiting and diarrhea. Patient had reported decreased p.o. intake and reportedly had a change in mental status on the day of presentation. Natividad noted a blood sugar of 39 and was given glucose with improvement to 82 and then brought her in. Patient had reported a cough. Patient generally felt weak but did not report any falls. No chest pain, W[place]o pain or dysuria was reported. In the ER, patient was afebrile and saturating well on room air. Patient was slightly hypotensive at 100/43 initially. Laboratory data showed a white blood cell count of 6.1 with 80% neutrophils and a hemoglobin of 11.4. Chemistries did show a BUN of 82 with a creatinine of 1.98 and a potassium of 3.4. UA did show some leukocyte Estrace, but was negative for nitrites. Chest x-ray showed a left lower lobe infiltrate, so patient was given antibiotics and fluids. Patient was admitted to the floor for further evaluation. While in PCU, the patient developed hypotension and was therefore transferred to the intensive care unit. On arrival to the intensive care unit, patient was noted to have a good blood pressure when the cuff was moved to a separate location. Patient subjectively feels slightly improved compared to previous. Patient is not reporting any current chest pain, but does feel short of breath and weak. Patient does report she has had issues with nausea and vomiting, but no coffee-ground emesis has been noted. Patient is not reporting any lower extremity edema or palpitations. Patient does use supplemental oxygen with sleep secondary to intolerance of CPAP. Patient does report that she has had a rash on her left flank for years. Patient states it does itch occasionally and she has been told that it was secondary to shingles. Patient does have a history of stroke with right-sided deficits Review of systems otherwise negative from a constitutional, HEENT, respiratory, cardiovascular, GI, genitourinary, musculoskeletal, skin, neurologic, psychiatric and hematologic system unless stated above. [facility] Medical History Acute ischemic left middle cerebral artery (MCA) stroke Anemia Aphasia Arthritis BPPV (benign paroxysmal positional vertigo) Cardiology follow-up encounter Cerebrovascular accident involving cerebellum CKD (chronic kidney disease), stage III Closed fracture of left hip requiring operative repair Depression Diabetes mellitus, type II Diabetic nephropathy Dietary restriction DVT (deep venous thrombosis) Dysarthria Dysmetabolic syndrome X Easy bruising Essential hypertension GERD (gastroesophageal reflux disease) Grade II diastolic dysfunction History of DVT (deep vein thrombosis) History of echocardiogram History of hip fracture HLD (hyperlipidemia) Hypothyroid Hypoxia Intertrigo Iron deficiency Left atrial enlargement Morbid obesity with BMI of 40.0-44.9, adult Non-smoker Normochromic normocytic anemia Occlusion of right vertebral artery On home oxygen therapy Physical debility Proteinuria Seasonal allergies Sleep apnea Sleep-disordered breathing Urinary tract infection Walker as ambulation aid Wears glasses Home Medications multivitamin 1 ea PO DAILY supplement 09/08/16 [History Last Taken 06/15/19] sitagliptin phosphate 50 mg tablet (Januvia) 50 mg PO DAILY diabetes 06/16/19 [History Last Taken 06/15/19] fish oil-dha-epa 1,200 mg-144 mg-216 mg capsule 1,200 cap PO DAILY Supplement 09/01/19 [History Last Taken Unknown] fluticasone propionate 50 mcg/actuation nasal spray,suspension (Allergy Relief (fluticasone)) 2 spray intranasal DAILY Allergy Relief 09/01/19 [History Last Taken 12/22/21] atenolol 50 mg tablet 25 mg PO QHS Blood Pressure 09/17/20 [History Last Taken Unknown] atorvastatin 40 mg tablet 40 mg PO QHS Cholesterol 09/17/20 [History Last Taken Unknown] glimepiride 1 mg tablet 1 mg PO DAILY Diabetes 09/17/20 [History Last Taken Unknown] losartan 100 mg tablet 100 mg PO DAILY Blood Pressure 09/17/20 [History Last Taken 12/22/21] magnesium oxide 400 mg (241.3 mg magnesium) tablet 400 mg PO DAILYCM Supplement 09/17/20 [History Last Taken Unknown] nifedipine 30 mg tablet,extended release 24 hr 30 mg PO DAILY Blood Pressure 09/17/20 [History Last Taken 12/22/21] nystatin 100,000 unit/gram topical powder ([facility]) 1 applic topical BID Redness 09/17/20 [History Last Taken Unknown] sennosides 8.6 mg-docusate sodium 50 mg tablet 2 tab-cap PO Q OTHER DAY Constipation 09/17/20 [History Last Taken Unknown] sertraline 50 mg tablet 50 mg PO DAILY Mood 09/17/20 [History Last Taken Unknown] aspirin 81 mg tablet,delayed release 81 mg PO BREAKFAST #0 tabs 10/06/20 [Rx Last Taken Unknown] esomeprazole magnesium 20 mg capsule,delayed release (Nexium) 20 mg PO DAILY 03/10/21 [History Last Taken Unknown] levothyroxine 25 mcg tablet 125 mcg PO DAILY Thyroid 03/10/21 [History Last Taken 12/22/21] ondansetron 4 mg disintegrating tablet 4 mg PO Q8H PRN nausea and vomiting #14 tabs 12/22/21 [Rx Last Taken Unknown] oxycodone 5 mg capsule 5 mg PO Q6H PRN pain 7 days #28 caps 12/22/21 [Rx Last Taken Unknown] Allergy/AdvReac Type Severity Reaction Status Date / Time adhesive tape Allergy Intermediate Unknown Verified 12/22/21 10:44 Sulfa (Sulfonamide Allergy Rash Verified 12/22/21 10:44 Antibiotics) lisinopril AdvReac cough Verified 12/22/21 10:44 Family History Grandfather Alcoholism Mother Angina at rest Arthritis Diabetes Myocardial infarction, Onset Age: 40 another @70 Heart disease Hypertension Sister Arthritis Bleeding disorder Blood clots Non Hodgkin's lymphoma Kidney cysts Osteoporosis Thyroid disorder Surgical History History of cataract extraction Social History household members: none Smoking Status: Never smoker alcohol intake: former details: Social substance use type: does not use ROS ROS Narrative See HPI Physical Exam Const alert, oriented x3 and no apparent distress Constitutional Narrative: Morbidly obese HEENT head/scalp atraumatic, moist oral mucous membranes and oropharynx normal Head and Scalp: normocephalic Mouth: oral and palatal mucosa normal Eyes PERRL and EOMs intact bilaterally Neck no lymphadenopathy, supple and no JVD Resp normal respiratory effort, no retractions, no use of accessory muscles and clear to auscultation bilaterally Cardio regular rate, regular rhythm, S1 normal heart sound, S2 normal heart sound, no murmurs, no rub and no gallops GI normal to inspection, nondistended, normoactive bowel sounds, soft to palpation, non-tender and non-distended Extremity normal to inspection, full ROM and no clubbing, cyanosis or edema Skin Skin Narrative: Patchy erythematous area in the left flank. Some granulation tissue noted Neuro oriented x3 and CN's II-XII intact bilaterally Neuro Narrative: Right-sided weakness noted. Sensorium / Orientation: awake and alert Motor Exam: strength 5/5 throughout Psych affect normal Lab / Micro Data Attestation: I reviewed the patient's lab results. Result Diagrams: 02/28/22 05:35 02/28/22 07:50 Labs: Laboratory Results - last 24 hr 02/27/22 18:35: WBC 6.1, RBC 3.92 L, Hgb 11.4 L, Hct 36.0 L, MCV 91.8, MCH 29.1, MCHC 31.7 L, RDW Std Deviation 46.1 H, RDW Coeff of Umu 13.6, Plt Count 429, MPV 10.1, Immature Gran % (Auto) 0.700, Neut % (Auto) 80.8 H, Lymph % (Auto) 7.2 L, Lamoure % (Auto) 9.6, Eos % (Auto) 1.0, Baso % (Auto) 0.7, Absolute Neuts (auto) 5.0, Absolute Lymphs (auto) 0.44 L, Nucleated RBC % 0, Differential Comment SCANNED 02/27/22 18:35: Sodium 135 L, Potassium 3.4 L, Chloride 97 L, Carbon Dioxide 26.0, Anion Gap 12, BUN 82 H, Creatinine 1.98 H, Estim Creat Clear Calc 17.09, Est GFR (MDRD) Af Amer 31 L, Est GFR (MDRD) Non-Af 26 L, BUN/Creatinine Ratio 41.4 H, Glucose 79, Calcium 9.0, Total Bilirubin 0.30, AST 29, ALT 25, Alkaline Phosphatase 113, Total Protein 7.0, Albumin 2.3 L, Globulin 4.7 H, Albumin/Globulin Ratio 0.5 L 02/27/22 20:46: POC Glucose 26 L* 02/27/22 20:59: Urine Color Yellow, Urine Clarity Sl. Cloudy, Urine pH 5.0, Ur Specific Elbe 1.015, Urine Protein Negative, Urine Glucose (UA) Normal, Urine Ketones Negative, Urine Occult Blood Negative, Urine Nitrite Negative, Urine Bilirubin 1 H, Urine Urobilinogen Normal, Ur Leukocyte Esterase 500 H, Urine RBC 0-5 SEEN, Urine WBC 10-25 SEEN, Ur Squamous Epith Cells 5-10 SEEN, Amorphous Sediment 1+ URATE, Urine Bacteria RARE, Urine Mucus 0 SEEN 02/27/22 21:04: POC Glucose 163 H 02/27/22 21:19: POC Glucose 119 H 02/27/22 21:50: POC Glucose 86 02/27/22 22:14: POC Glucose 51 L 02/27/22 22:58: POC Glucose 87 02/27/22 23:42: POC Glucose 64 L 02/28/22 00:03: POC Glucose 69 L 02/28/22 00:30: POC Glucose 50 L 02/28/22 00:56: POC Glucose 32 L* 02/28/22 01:17: POC Glucose 148 H 02/28/22 01:37: POC Glucose 149 H 02/28/22 02:26: POC Glucose 101 02/28/22 03:39: POC Glucose 100 02/28/22 04:36: POC Glucose 80 02/28/22 05:35: WBC 5.5, RBC 3.99 L, Hgb 12.1, Hct 40.3, MCV 101.0 H D, MCH 30.3, MCHC 30.0 L D, RDW Std Deviation 51.4 H, RDW Coeff of Umu 13.7, Plt Count 350, MPV 9.6, Immature Gran % (Auto) 0.900, Neut % (Auto) 73.8 H, Lymph % (Auto) 16.0 L, Lamoure % (Auto) 6.7, Eos % (Auto) 1.1, Baso % (Auto) 1.5 H, Absolute Neuts (auto) 4.1, Absolute Lymphs (auto) 0.88, Nucleated RBC % 0, Macrocytosis RARE 02/28/22 05:35: Sodium Cancelled, Potassium Cancelled, Chloride Cancelled, Carbon Dioxide Cancelled, Anion Gap Cancelled, BUN Cancelled, Creatinine Cancelled, Estim Creat Clear Calc Cancelled, Est GFR (MDRD) Af Amer Cancelled, Est GFR (MDRD) Non-Af Cancelled, BUN/Creatinine Ratio Cancelled, Glucose Cancelled, Calcium Cancelled 02/28/22 05:52: POC Glucose 92 02/28/22 06:44: POC Glucose 71 L 02/28/22 07:50: Sodium 137, Potassium 3.2 L, Chloride 102, Carbon Dioxide 27.0, Anion Gap 8, BUN 74 H, Creatinine 1.48 H, Estim Creat Clear Calc 48.34, Est GFR (MDRD) Af Amer 44 L, Est GFR (MDRD) Non-Af 36 L, BUN/Creatinine Ratio 50.0 H, Glucose 73 L, Calcium 8.3 L 02/28/22 08:20: POC Glucose 90 02/28/22 12:41: POC Glucose 104 Micro: Microbiology 02/28/22 04:05 Stool C. difficile DNA Amplification - Final 02/28/22 04:05 Stool Enteric Bacteriology - Final 02/27/22 19:17 Nasal Secretion SARS-CoV-2 & FLU Antigen (Rapid) - Final Radiology Impression Chest X-Ray 02/27/22 19:35 IMPRESSION: Left lower lung infiltrate. Electronically Signed: Alex Rivas MD at 19:54 EST , Chest X-Ray 02/27/22 22:50 IMPRESSION: Left lower lobe infiltrate with pleural effusion. Findings consistent with pneumonia. Electronically Signed: Moisés Vo MD at 23:22 EST , Charges/Coding Visit Charges Inpatient E&M: 16738 Init Hosp L3
[2022-02-28 16:25] LABS: Bedside Glucose 107 mg/dL (74-106)
[2022-02-28 21:11] LABS: Bedside Glucose 77 mg/dL (74-106)
[2022-02-28] MEDS: Atorvastatin Calcium 40 MG Tablet PO (21:12)
[2022-02-28] MEDS: Menthol/Lanolin/Calamine/Znox 113 GM Tube 1 APPLIC TOPICAL (21:14)
[2022-02-28] MEDS: Acetaminophen 325 MG Tablet 650 MG PO (23:48)
[2022-03-01] VITALS (22 sets, daily range): BP systolic 112–141; BP diastolic 46–75; PULSE 72–90; RESP 16–22; TEMP 36.5–38; O2SAT 93–98
[2022-03-01] LABS: Bedside Glucose 100 mg/dL (74-106)
[2022-03-01] MEDS: 0.9% Normal Saline 1,000 ML 150 ML IV (02:20)
[2022-03-01 02:51] LABS: Bedside Glucose 82 mg/dL (74-106)
[2022-03-01 04:38] LABS: Absolute Lymphocyte Count 1.24 X10^3/uL (0.83-4.51); Absolute Neutrophil Count 5.8 X10^3/uL (2.0-7.7); Basophil# 0.05 X10^3/uL; Basophil% 0.6 % (0-1); Eosinophils% 1.3 % (0-5); Hematocrit 30.9 % (37-47); Hemoglobin 9.9 g/dL (12.0-15.0); Lymphocyte # 1.24 X10^3/ul (0.83-4.51); Lymphocyte % 15.7 % (19-41); Mean Corpuscular Hgb 29.5 pg (27.0-32.0); Mean Platelet Vol. 10.4 fl (6.2-12.0); Monocyte% 7.6 % (0-10); NRBC Flagged by Analyzer 0 % (0-5); Neutrophil % 73.5 % (47-70); POSITIVE MORPHOLOGY YES; Platelet Count 399 K/mm3 (150-450); RBC Distribution Width CV 14.2 % (11.6-14.6); RBC Distribution Width SD 47.8 fl (35.1-43.9); Red Blood Count 3.36 M/mm3 (4.2-5.4); White Blood Count 7.9 K/mm3 (4.4-11.0)
[2022-03-01 04:56] LABS: Differential Indicated SCAN CRITERIA MET
[2022-03-01 05:35] LABS: Bedside Glucose 83 mg/dL (74-106)
[2022-03-01] MEDS: Menthol/Lanolin/Calamine/Znox 113 GM Tube 1 APPLIC TOPICAL ×3 (05:50→21:37)
[2022-03-01] MEDS: Enoxaparin 30 MG/0.3 ML Syringe SC (05:51)
[2022-03-01 05:53] LABS: Anion Gap 6 (5-15); BUN 66 mg/dL (7-18); BUN/Creat Ratio 47.5 RATIO (10-20); Calcium,Total 8.5 mg/dL (8.5-10.1); Chloride 108 mmol/L (98-107); Creatinine, Serum 1.39 mg/dL (0.55-1.02); EST Glomerular Filtration Rate 39 mL/min (>60); Est Glom Filt Rate - Afr Amer 47 mL/min (>60); Estimated Creatinine Clearance 52.92 ml/min; Glucose 85 mg/dL (74-106); Potassium 4.1 mmol/L (3.5-5.1); Sodium Level 139 mmol/L (136-145)
[2022-03-01] MEDS: Levothyroxine 125 MCG Tablet PO (05:54)
[2022-03-01 07:25] LABS: Bedside Glucose 90 mg/dL (74-106)
--- NOTE | 2022-03-01 07:28 | PCM.PN.INT ---
Assessment & Plan Assessment/Plan (1) Hypotension: (2) SOPHIE (obstructive sleep apnea): PLAN: Plan RECOMMENDATIONS: 1. Stop continuous IV fluids. 2. Continue antimicrobials to complete 7 days of therapy. 3. Wean supplemental oxygen to maintain saturations at or above 90%. 4. Encourage incentive spirometer use and mobilize patient as tolerated. 5. The patient is medically stable for transfer out of the intensive care unit. IMPRESSIONS: 1. Sepsis secondary to possible left-sided pneumonia The patient presented with endorgan damage indicated by acute kidney injury, along with radiographic evidence of the left lower lobe pneumonia. Her hypotension was likely secondary to intravascular volume depletion in the setting of diarrhea. She has been adequately volume resuscitated and remains hemodynamically stable. The patient never required vasopressor support. Agree with continuing antimicrobials to complete 7 days of therapy. Continue to wean supplemental oxygen to maintain saturations at or above 90%. Encourage incentive spirometer use and mobilize patient as tolerated. 2. Hypertension/diarrhea/advanced age/morbid obesity/hypokalemia/paroxysmal A. fib/untreated SOPHIE Complicates care, management, recovery and prognosis. Antihypertensives are on hold secondary to problem #1. Patient will need PT/OT. This note was generated with [employer] dictation software. It may contain incorrect words, spelling, and punctuation that were not noted in checking the note before signing. Subjective Subjective The patient was seen and examined at the bedside this morning. Events from the last 24 hours have been reviewed. The patient currently has a low-grade fever but remains otherwise hemodynamically stable on 3 L/min via nasal cannula. The patient is documented to be overall net +5 L for the hospitalization. Hemoglobin is down to 9.9 g/dL this morning. Creatinine is stable at 1.39. The patient has no specific complaints this morning. Objective Data Objective Data The patient's most recent lab work, culture data and imaging studies have all been personally reviewed. Infectious work-up has been unrevealing to date. Vital Signs: Vital Signs Temp Pulse Resp BP Pulse Ox O2 Del Method O2 Flow Rate 99.5 F H 83 22 H 120/59 L 96 Nasal Cannula 3 03/01/22 06:00 03/01/22 06:00 03/01/22 06:00 03/01/22 06:00 03/01/22 06:00 03/01/22 07:18 03/01/22 07:18 FiO2 50 03/01/22 05:00 Oxygen Flow Rate (L/min) 3 Oxygen Delivery Method Nasal Cannula Weight: 218 lb 0.595 oz Body Mass Index (BMI) 41.6 Intake & Output: Intake and Output for Last 24 Hours 02/27/22 02/28/22 03/01/22 23:59 23:59 23:59 Intake Total 1000 / 1000 4675.00 / 4675.00 1000 / 1000 Output Total 1000 / 1400 700 / 700 Balance 1000 / 1000 3675.00 / 3275.00 300 / 300 Lab / Micro Data Attestation: I reviewed the patient's lab results. Result Diagrams: 03/01/22 04:17 03/01/22 05:36 Labs: Laboratory Results - last 24 hr 02/27/22 21:04: POC Glucose 163 H 02/27/22 21:19: POC Glucose 119 H 02/28/22 00:30: POC Glucose 50 L 02/28/22 00:56: POC Glucose 32 L* 02/28/22 01:17: POC Glucose 148 H 02/28/22 01:37: POC Glucose 149 H 02/28/22 02:26: POC Glucose 101 02/28/22 03:39: POC Glucose 100 02/28/22 04:36: POC Glucose 80 02/28/22 05:52: POC Glucose 92 02/28/22 06:44: POC Glucose 71 L 02/28/22 07:50: Sodium 137, Potassium 3.2 L, Chloride 102, Carbon Dioxide 27.0, Anion Gap 8, BUN 74 H, Creatinine 1.48 H, Estim Creat Clear Calc 48.34, Est GFR (MDRD) Af Amer 44 L, Est GFR (MDRD) Non-Af 36 L, BUN/Creatinine Ratio 50.0 H, Glucose 73 L, Calcium 8.3 L 02/28/22 08:20: POC Glucose 90 02/28/22 12:41: POC Glucose 104 02/28/22 16:05: POC Glucose 107 H 02/28/22 20:53: POC Glucose 77 02/28/22 23:40: POC Glucose 100 03/01/22 02:20: Sodium Cancelled, Potassium Cancelled, Chloride Cancelled, Carbon Dioxide Cancelled, Anion Gap Cancelled, BUN Cancelled, Creatinine Cancelled, Estim Creat Clear Calc Cancelled, Est GFR (MDRD) Af Amer Cancelled, Est GFR (MDRD) Non-Af Cancelled, BUN/Creatinine Ratio Cancelled, Glucose Cancelled, Calcium Cancelled 03/01/22 02:29: POC Glucose 82 03/01/22 04:17: WBC 7.9, RBC 3.36 L, Hgb 9.9 L, Hct 30.9 L, MCV 92.0 D, MCH 29.5, MCHC 32.0 D, RDW Std Deviation 47.8 H, RDW Coeff of Umu 14.2, Plt Count 399, MPV 10.4, Immature Gran % (Auto) 1.300 H, Neut % (Auto) 73.5 H, Lymph % (Auto) 15.7 L, Terrell % (Auto) 7.6, Eos % (Auto) 1.3, Baso % (Auto) 0.6, Absolute Neuts (auto) 5.8, Absolute Lymphs (auto) 1.24, Nucleated RBC % 0 03/01/22 04:17: Sodium Cancelled, Potassium Cancelled, Chloride Cancelled, Carbon Dioxide Cancelled, Anion Gap Cancelled, BUN Cancelled, Creatinine Cancelled, Estim Creat Clear Calc Cancelled, Est GFR (MDRD) Af Amer Cancelled, Est GFR (MDRD) Non-Af Cancelled, BUN/Creatinine Ratio Cancelled, Glucose Cancelled, Calcium Cancelled 03/01/22 05:00: Sodium Cancelled, Potassium Cancelled, Chloride Cancelled, Carbon Dioxide Cancelled, Anion Gap Cancelled, BUN Cancelled, Creatinine Cancelled, Estim Creat Clear Calc Cancelled, Est GFR (MDRD) Af Amer Cancelled, Est GFR (MDRD) Non-Af Cancelled, BUN/Creatinine Ratio Cancelled, Glucose Cancelled, Calcium Cancelled 03/01/22 05:13: POC Glucose 83 03/01/22 05:36: Sodium 139, Potassium 4.1, Chloride 108 H, Carbon Dioxide 25.0, Anion Gap 6, BUN 66 H, Creatinine 1.39 H, Estim Creat Clear Calc 52.92, Est GFR (MDRD) Af Amer 47 L, Est GFR (MDRD) Non-Af 39 L, BUN/Creatinine Ratio 47.5 H, Glucose 85, Calcium 8.5 03/01/22 07:04: POC Glucose 90 Micro: Microbiology 02/28/22 04:05 Stool C. difficile DNA Amplification - Final 02/28/22 04:05 Stool Enteric Bacteriology - Final 02/27/22 19:17 Nasal Secretion SARS-CoV-2 & FLU Antigen (Rapid) - Final Physical Exam Const alert, oriented x3 and no apparent distress General Appearance: cooperative HEENT normocephalic, head/scalp atraumatic and moist oral mucous membranes Eyes PERRL, EOMs intact bilaterally and conjunctivae normal Neck supple General: trachea midline Chest inspection of chest normal Resp normal respiratory effort Auscultation: Negative for rales, rhonchi or wheezes Cardio regular rate and regular rhythm GI normal to inspection, nondistended, normoactive bowel sounds Extremity no clubbing, cyanosis or edema Skin no rashes or lesions noted Neuro oriented x3, CN's II-XII intact bilaterally and moves all extremities Psych cooperative and affect normal Charges/Coding Visit Charges Inpatient E&M: 81848 Subs Hosp L2
[2022-03-01] MEDS: Ensure Plus High Protein 120 ML LIQUID PO ×3 (08:26→21:39)
[2022-03-01] MEDS: Fluticasone 0.05% 1 SPRAY NASAL.SRY 2 SPRAY NASAL (08:27)
[2022-03-01] MEDS: Aspirin E.C. 81 MG Tablet PO (08:27)
[2022-03-01] MEDS: Pantoprazole Sodium 20 MG Tablet PO (08:28)
[2022-03-01] MEDS: Nystatin Powder 15gm Bottle 1 APPLIC TOPICAL ×2 (08:28→21:38)
[2022-03-01] MEDS: Sertraline 50 MG Tablet PO (08:28)
--- NOTE | 2022-03-01 10:32 | PN.HOSP_ITS ---
Subjective Subjective Patient seen and examined. She felt much better today. She denied any fever, chills, cough, chest pain or abdominal pain, nausea or vomiting. She had one episode of diarrhea today. She was transferred to the ICU yesterday due to persistent hypotension. She didnt require any vasopressors. She was started on IV antibimicrobials. She does have a low grade fever or 99.2F today. She is on 3L of oxygen. Objective Data Objective Data Vital Signs: Vital Signs Temp Pulse Resp BP Pulse Ox O2 Del Method O2 Flow Rate 99.2 F H 84 20 H 141/69 H 98 Nasal Cannula 3 03/01/22 10:00 03/01/22 10:00 03/01/22 10:00 03/01/22 10:00 03/01/22 10:00 03/01/22 10:00 03/01/22 10:00 FiO2 50 03/01/22 05:00 Oxygen Flow Rate (L/min) 3 Oxygen Delivery Method Nasal Cannula Weight: 218 lb 0.595 oz Body Mass Index (BMI) 41.6 Intake & Output: Intake and Output for Last 24 Hours 02/27/22 02/28/22 03/01/22 23:59 23:59 23:59 Intake Total 1000 / 1000 4675.00 / 4675.00 2037.5 / 2037.5 Output Total 1000 / 1400 700 / 700 Balance 1000 / 1000 3675.00 / 3275.00 1337.5 / 1337.5 Lab / Micro Data Result Diagrams: 03/01/22 04:17 03/01/22 05:36 Labs: Laboratory Results - last 24 hr 02/27/22 21:04: POC Glucose 163 H 02/27/22 21:19: POC Glucose 119 H 02/28/22 00:30: POC Glucose 50 L 02/28/22 00:56: POC Glucose 32 L* 02/28/22 01:17: POC Glucose 148 H 02/28/22 01:37: POC Glucose 149 H 02/28/22 02:26: POC Glucose 101 02/28/22 03:39: POC Glucose 100 02/28/22 04:36: POC Glucose 80 02/28/22 05:52: POC Glucose 92 02/28/22 06:44: POC Glucose 71 L 02/28/22 08:20: POC Glucose 90 02/28/22 12:41: POC Glucose 104 02/28/22 16:05: POC Glucose 107 H 02/28/22 20:53: POC Glucose 77 02/28/22 23:40: POC Glucose 100 03/01/22 02:20: Sodium Cancelled, Potassium Cancelled, Chloride Cancelled, Carbon Dioxide Cancelled, Anion Gap Cancelled, BUN Cancelled, Creatinine Cancelled, Estim Creat Clear Calc Cancelled, Est GFR (MDRD) Af Amer Cancelled, Est GFR (MDRD) Non-Af Cancelled, BUN/Creatinine Ratio Cancelled, Glucose Cancelled, Calcium Cancelled 03/01/22 02:29: POC Glucose 82 03/01/22 04:17: WBC 7.9, RBC 3.36 L, Hgb 9.9 L, Hct 30.9 L, MCV 92.0 D, MCH 29.5, MCHC 32.0 D, RDW Std Deviation 47.8 H, RDW Coeff of Umu 14.2, Plt Count 399, MPV 10.4, Immature Gran % (Auto) 1.300 H, Neut % (Auto) 73.5 H, Lymph % (Auto) 15.7 L, [place] % (Auto) 7.6, Eos % (Auto) 1.3, Baso % (Auto) 0.6, Absolute Neuts (auto) 5.8, Absolute Lymphs (auto) 1.24, Nucleated RBC % 0 03/01/22 04:17: Sodium Cancelled, Potassium Cancelled, Chloride Cancelled, Carbon Dioxide Cancelled, Anion Gap Cancelled, BUN Cancelled, Creatinine Cancelled, Estim Creat Clear Calc Cancelled, Est GFR (MDRD) Af Amer Cancelled, Est GFR (MDRD) Non-Af Cancelled, BUN/Creatinine Ratio Cancelled, Glucose Cancelled, Calcium Cancelled 03/01/22 05:00: Sodium Cancelled, Potassium Cancelled, Chloride Cancelled, Carbon Dioxide Cancelled, Anion Gap Cancelled, BUN Cancelled, Creatinine Cancelled, Estim Creat Clear Calc Cancelled, Est GFR (MDRD) Af Amer Cancelled, Est GFR (MDRD) Non-Af Cancelled, BUN/Creatinine Ratio Cancelled, Glucose Cancelled, Calcium Cancelled 03/01/22 05:13: POC Glucose 83 03/01/22 05:36: Sodium 139, Potassium 4.1, Chloride 108 H, Carbon Dioxide 25.0, Anion Gap 6, BUN 66 H, Creatinine 1.39 H, Estim Creat Clear Calc 52.92, Est GFR (MDRD) Af Amer 47 L, Est GFR (MDRD) Non-Af 39 L, BUN/Creatinine Ratio 47.5 H, Glucose 85, Calcium 8.5 03/01/22 07:04: POC Glucose 90 Micro: Microbiology 02/28/22 04:05 Stool C. difficile DNA Amplification - Final 02/28/22 04:05 Stool Enteric Bacteriology - Final 02/27/22 19:17 Nasal Secretion SARS-CoV-2 & FLU Antigen (Rapid) - Final Physical Exam Const alert, oriented x3 and no apparent distress General Appearance: cooperative HEENT normocephalic, head/scalp atraumatic, moist oral mucous membranes and oropharynx normal Head and Scalp: normocephalic Mouth: oral and palatal mucosa normal Eyes PERRL and EOMs intact bilaterally Neck no lymphadenopathy and supple Lymph Lymphatic: no lymphadenopathy noted Resp normal respiratory effort, normal air movement, no retractions, no use of acc essory muscles and clear to auscultation bilaterally Cardio regular rate, regular rhythm, S1 normal heart sound, S2 normal heart sound and no murmurs GI normal to inspection, nondistended, normoactive bowel sounds, soft to palpation, non-tender and non-distended Extremity normal to inspection, full ROM, normal capillary refill and no clubbing, cyanosis or edema Skin General Skin Exam: no breakdown Neuro oriented x3, CN's II-XII intact bilaterally, moves all extremities and no focal motor deficits Sensorium / Orientation: awake and alert Motor Exam: strength 5/5 throughout Psych thought process normal, cooperative and affect normal Assessment & Plan Assessment/Plan (1) Hypotension: (2) Hypoglycemia: (3) Diarrhea: PLAN: Plan #SHock * appears to be hypovolemic,due to diarrhea * diarrhea is resolving, and has occured just once overnight * off levophed. * on IV vancomycin and zosyn to cover for any occult infection * blood cultures pending * shock has resolved. #Diarrhea * C Diff and enteric pathogen screen was normal * diarrhea is improving; only had one episode last night. * * #Hypoglycemia * resolved. Eating much better * hold sitagliptin * ISS. Accuchecks ACHS * #Hypertension:continue holding BP meds due to hypotension #Hypokalemia: resolved. K is 4.1 #WENDY on CKD: * Cr was 1.98 on admission, baseline Cr is ~ 1.1. likely pre renal due to diarrhea nad decreased intake. * Cr down to 1.39. * WIll trend CR * * #Paroxysmal afib: hold beta blockers due to hypotension #HYpothyroidism: on synthroid DVT prophylaxis: lovenox Charges/Coding Visit Charges Inpatient E&M: 61237 Subs Hosp L2
--- NOTE | 2022-03-01 11:38 | WOUNDNOTE ---
wound photo: pannus
[2022-03-01 11:45] LABS: Bedside Glucose 74 mg/dL (74-106)
--- NOTE | 2022-03-01 11:45 | CASEMGMT ---
RN SABAS Face to Face with patient for initial transition planning/care coordination assessment. RN CM introduced self and role at [facility]. Patient lying in bed, alert and oriented. Patient willing to participate in assessment and is able to answer all questions appropriately. Care providers, pharmacy, and demographics verified. Patient wishes to discharge home but willing to go to SNF if necessary, will monitor progress with therapy. Patient states she has no further needs or concerns at this time. CM to follow for discharge planning needs that may arise. 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 Insurance: [employer] Prescription Benefit: yes Living Will/HPOA: yes, sister Norah Weiner LNOK: sister Living Arrangements: Patient lives alone in a second floor apartment with ramp to enter. Patient states she is independent at home. Transportation: sister DME/HHC: Patient states she has shower chair, raised toilet, waker, medical alert, glucometer with supplies, and home oxygen at through [employer]. Patient has had [facility] HHC in the past. No previous SNF. Patient is active with [facility]. Disposition Plan: TBD, anticipate HHC vs SNF pending progress with therapy. Cathleen CHILDS, RN, CM
[2022-03-01] MEDS: 0.9% Saline Lock 10 ML Syringe IV (16:41)
[2022-03-01 19:06] LABS: Bedside Glucose 88 mg/dL (74-106)
[2022-03-01] MEDS: Atorvastatin Calcium 40 MG Tablet PO (21:38)
[2022-03-01 22:15] LABS: Bedside Glucose 82 mg/dL (74-106)
[2022-03-02] VITALS (15 sets, daily range): BP systolic 127–143; BP diastolic 49–55; PULSE 75–92; RESP 16–18; TEMP 36.8–37.3; O2SAT 89–98
[2022-03-02] MEDS: Levothyroxine 125 MCG Tablet PO (05:14)
[2022-03-02] MEDS: Menthol/Lanolin/Calamine/Znox 113 GM Tube 1 APPLIC TOPICAL ×3 (05:14→23:03)
[2022-03-02] MEDS: Enoxaparin 30 MG/0.3 ML Syringe SC (05:15)
[2022-03-02 06:55] LABS: Bedside Glucose 73 mg/dL (74-106)
[2022-03-02 06:56] LABS: Absolute Lymphocyte Count 1.49 X10^3/uL (0.83-4.51); Absolute Neutrophil Count 7.3 X10^3/uL (2.0-7.7); Basophil# 0.04 X10^3/uL; Basophil% 0.4 % (0-1); Eosinophil# 0.26 X10^3/uL; Eosinophils% 2.7 % (0-5); Hematocrit 30.1 % (37-47); Hemoglobin 9.1 g/dL (12.0-15.0); Lymphocyte # 1.49 X10^3/ul (0.83-4.51); Lymphocyte % 15.3 % (19-41); Mean Corp Hgb Conc 30.2 g/dL (32-36); Mean Corpuscular Hgb 28.9 pg (27.0-32.0); Mean Corpuscular Volume 95.6 fL (81-99); Mean Platelet Vol. 9.5 fl (6.2-12.0); Monocyte# 0.53 X10^3/uL; Monocyte% 5.4 % (0-10); NRBC Flagged by Analyzer 0.2 % (0-5); Neutrophil # 7.26 X10^3/uL (2.7-7.7); Neutrophil % 74.4 % (47-70); POSITIVE MORPHOLOGY YES; Platelet Count 372 K/mm3 (150-450); RBC Distribution Width CV 13.8 % (11.6-14.6); RBC Distribution Width SD 48.2 fl (35.1-43.9); Red Blood Count 3.15 M/mm3 (4.2-5.4); White Blood Count 9.8 K/mm3 (4.4-11.0)
[2022-03-02 07:03] LABS: Anion Gap 3 (5-15); BUN 48 mg/dL (7-18); BUN/Creat Ratio 43.2 RATIO (10-20); Calcium,Total 8.6 mg/dL (8.5-10.1); Chloride 113 mmol/L (98-107); Creatinine, Serum 1.11 mg/dL (0.55-1.02); EST Glomerular Filtration Rate 51 mL/min (>60); Est Glom Filt Rate - Afr Amer 61 mL/min (>60); Glucose 78 mg/dL (74-106); Sodium Level 142 mmol/L (136-145)
[2022-03-02 07:05] LABS: Differential Indicated SCAN CRITERIA MET
--- NOTE | 2022-03-02 07:27 | NURSING ---
All MARBLE SETTER charting reviewed by this RN. Bart BISHOP
[2022-03-02] MEDS: Sertraline 50 MG Tablet PO (08:40)
[2022-03-02] MEDS: Fluticasone 0.05% 1 SPRAY NASAL.SRY 2 SPRAY NASAL (08:40)
[2022-03-02] MEDS: Ensure Plus High Protein 120 ML LIQUID PO ×3 (08:40→23:05)
[2022-03-02] MEDS: Aspirin E.C. 81 MG Tablet PO (08:40)
[2022-03-02] MEDS: Pantoprazole Sodium 20 MG Tablet PO (08:40)
[2022-03-02] MEDS: Nystatin Powder 15gm Bottle 1 APPLIC TOPICAL ×2 (08:41→23:03)
[2022-03-02 11:45] LABS: Bedside Glucose 99 mg/dL (74-106)
--- NOTE | 2022-03-02 13:50 | PN.HOSP_ITS ---
Subjective Subjective Patient seen and examined. She had no active complaints and felt much better today. Review of systems is otherwise negative. Objective Data Objective Data Vital Signs: Vital Signs Temp Pulse Resp BP Pulse Ox O2 Del Method O2 Flow Rate 99.1 F 88 17 143/55 H 94 Nasal Cannula 2 03/02/22 08:15 03/02/22 11:00 03/02/22 08:15 03/02/22 08:15 03/02/22 08:15 03/02/22 08:19 03/02/22 08:19 FiO2 50 03/02/22 02:29 Oxygen Flow Rate (L/min) 2 Oxygen Delivery Method Nasal Cannula Weight: 219 lb 12.814 oz Body Mass Index (BMI) 41.6 Intake & Output: Intake and Output for Last 24 Hours 02/28/22 03/01/22 03/02/22 23:59 23:59 23:59 Intake Total 4675.00 / 4675.00 3207.5 / 3207.5 328 / 328 Output Total 1000 / 1400 1675 / 1675 350 / 350 Balance 3675.00 / 3275.00 1532.5 / 1532.5 - Lab / Micro Data Result Diagrams: 03/02/22 06:10 03/02/22 06:10 Labs: Laboratory Results - last 24 hr 03/01/22 16:56: POC Glucose 88 03/01/22 21:43: POC Glucose 82 03/02/22 06:10: WBC 9.8, RBC 3.15 L, Hgb 9.1 L, Hct 30.1 L, MCV 95.6, MCH 28.9, MCHC 30.2 L D, RDW Std Deviation 48.2 H, RDW Coeff of Umu 13.8, Plt Count 372, MPV 9.5, Immature Gran % (Auto) 1.800 H, Neut % (Auto) 74.4 H, Lymph % (Auto) 15.3 L, [place] % (Auto) 5.4, Eos % (Auto) 2.7, Baso % (Auto) 0.4, Absolute Neuts (auto) 7.3, Absolute Lymphs (auto) 1.49, Nucleated RBC % 0.2 03/02/22 06:10: Sodium 142, Potassium 4.0, Chloride 113 H, Carbon Dioxide 26.0, Anion Gap 3 L, BUN 48 H, Creatinine 1.11 H, Estim Creat Clear Calc 66.80, Est GFR (MDRD) Af Amer 61, Est GFR (MDRD) Non-Af 51 L, BUN/Creatinine Ratio 43.2 H, Glucose 78, Calcium 8.6 03/02/22 06:20: POC Glucose 73 L 03/02/22 11:25: POC Glucose 99 Micro: Microbiology 02/28/22 14:25 Blood Culture (Wb) - No Site/Description Given Blood Culture - Preliminary No growth in 48 hours. 02/28/22 14:00 Blood Culture (Wb) - Right Hand Blood Culture - Preliminary No growth in 48 hours. 02/28/22 04:05 Stool C. difficile DNA Amplification - Final 02/28/22 04:05 Stool Enteric Bacteriology - Final 02/27/22 19:17 Nasal Secretion SARS-CoV-2 & FLU Antigen (Rapid) - Final Physical Exam Const alert, oriented x3 and no apparent distress General Appearance: cooperative HEENT normocephalic, head/scalp atraumatic, moist oral mucous membranes and oropharynx normal Head and Scalp: normocephalic Eyes PERRL and EOMs intact bilaterally Neck no lymphadenopathy and supple Lymph Lymphatic: no lymphadenopathy noted Resp normal respiratory effort, normal air movement, no retractions, no use of accessory muscles and clear to auscultation bilaterally Cardio regular rate, regular rhythm, S1 normal heart sound, S2 normal heart sound and no murmurs GI normal to inspection, nondistended, normoactive bowel sounds, soft to palpation, non-tender and non-distended Extremity normal to inspection, full ROM, normal capillary refill and no clubbing, cyanosis or edema Skin General Skin Exam: no breakdown Neuro oriented x3, CN's II-XII intact bilaterally, moves all extremities and no focal motor deficits Sensorium / Orientation: awake and alert Motor Exam: strength 5/5 throughout Psych thought process normal, cooperative and affect normal Assessment & Plan Assessment/Plan (1) Hypotension: (2) Hypoglycemia: (3) Diarrhea: PLAN: Plan #SHock * appears to be hypovolemic,due to diarrhea * resolved * diarrhea resolved. * off levophed. * on IV vancomycin and zosyn to cover for any occult infection * blood cultures pending #Diarrhea * C Diff and enteric pathogen screen was normal * resolved. * * #Hypoglycemia * resolved. Eating much better * hold sitagliptin * ISS. Accuchecks ACHS * #Hypertension:continue holding BP meds due to hypotension #Hypokalemia: resolved. K is 4 #WENDY on CKD: * resolved. Cr is down to 1.1 * * #Paroxysmal afib: hold beta blockers due to hypotension #HYpothyroidism: on synthroid DVT prophylaxis: lovenox Disposition: will benefit from placement. Case management and social work on board. Charges/Coding Visit Charges Inpatient E&M: 85899 Subs Hosp L2
[2022-03-02 14:07] LABS: ERROR FUNCTION FLAG YES; ERROR RESULT FLAG YES
[2022-03-02 14:09] LABS: Basophil 0.04 % (0-1); Blast 0.04 % (0-0); Eosinophil 0.04 % (0-5); Lymphocyte 0.04 % (19-41); Metamyelocyte 0.04 % (0-1); Monocyte 0.04 % (0-10); Myelocyte 0.04 % (0-0); Neutrophil-Band 0.04 % (0-5); Neutrophil-Segmented 0.04 % (47-70); Other WBC Type 0.04 %; Plasma Cell 0.04 %; Promyelocyte 0.04 % (0-0); Total Cells Counted 0.04 (MANUAL DIFF)
[2022-03-02 15:05] LABS: Vancomycin, Trough Level 16.6 ug/mL (5.0-15.0)
--- NOTE | 2022-03-02 15:59 | CASEMGMT ---
KARIS reviewed therapy notes and they are recommending patient go somewhere for rehab. KARIS asked patient her thoughts. Patient said she has been to [facility] before and she would like to go there. KARIS provided patient with a list of SNF providers including quality and resource use data and consistent with patient?s preferred geographic region, medical needs, and insurance network were provided from the [employer] Guide. KARIS let patient know a referral will be made to TCU and we can let her know. KARIS spoke with Jazmin in TCU and they can take patient. Patient's insurance will likely not give approval until Sunday at this point. KARIS Eugene let patient know that [facility] can accept her and she will stay in the hospital until insurance gives us an answer and this could be a day or so. Plan: d/c to [facility] pending approval. Renée HALL
--- NOTE | 2022-03-02 16:02 | PCM.RX.CS ---
Consult Pharmacy has been consulted to manage selected antiobiotic: Vancomycin Type of Consult: Follow-up Prior Doses of Antibiotics Received/Current Regimen: Received 2gm loading dose on 02.28.22 and 1500mg iv x 1 today. Labs: Sodium 142 mmol/L (136-145) 03/02/22 06:10 Potassium 4.0 mmol/L (3.5-5.1) 03/02/22 06:10 Chloride 113 mmol/L (98-107) H 03/02/22 06:10 Carbon Dioxide 26.0 mmol/L (21.0-32.0) 03/02/22 06:10 Anion Gap 3 (5-15) L 03/02/22 06:10 BUN 48 mg/dL (7-18) H 03/02/22 06:10 Creatinine 1.11 mg/dL (0.55-1.02) H 03/02/22 06:10 Est GFR (MDRD) Af Amer 61 mL/min (>60) 03/02/22 06:10 Est GFR (MDRD) Non-Af 51 mL/min (>60) L 03/02/22 06:10 BUN/Creatinine Ratio 43.2 RATIO (10-20) H 03/02/22 06:10 Glucose 78 mg/dL (74-106) 03/02/22 06:10 Vancomycin Trough 16.6 ug/mL (5.0-15.0) H 03/02/22 14:15 Microbiology: Microbiology 02/28/22 14:25 Blood Culture (Wb) - No Site/Description Given Blood Culture - Preliminary No growth in 48 hours. 02/28/22 14:00 Blood Culture (Wb) - Right Hand Blood Culture - Preliminary No growth in 48 hours. 02/28/22 04:05 Stool C. difficile DNA Amplification - Final 02/28/22 04:05 Stool Enteric Bacteriology - Final 02/27/22 19:17 Nasal Secretion SARS-CoV-2 & FLU Antigen (Rapid) - Final Weight used for dosin.7 kg Estimated Creatinine Clearance: 44 ml/min Goal Trough: 15-20 mcg/mL Pharmacy Plan for Drug Dosing: Trough today 16.6 mcg/ml and in therapeutic range of 15-20mcg/ml. Renal improved with Cr 1.11 and SCrCl ~44ml/min using an adjusted body weight of 65.5kg. Will continue same dose of 1500mg iv q24h. New trough ordered for 03.04.22. Pharmacy Service will continue to monitor and adjust dosing as required. Follow-Up Labs: Trough Vancomycin - 03.04.22 @1430 before 1500 dose
[2022-03-02 17:31] LABS: Bedside Glucose 95 mg/dL (74-106)
[2022-03-02] MEDS: Atorvastatin Calcium 40 MG Tablet PO (23:04)
[2022-03-02] MEDS: 0.9% Saline Lock 10 ML Syringe IV (23:47)
[2022-03-03] VITALS (11 sets, daily range): BP systolic 129–140; BP diastolic 45–65; PULSE 82–91; RESP 18–20; TEMP 36.3–37; O2SAT 92–97
[2022-03-03 00:15] LABS: Bedside Glucose 158 mg/dL (74-106)
[2022-03-03] MEDS: Menthol/Lanolin/Calamine/Znox 113 GM Tube 1 APPLIC TOPICAL ×2 (05:23→23:41)
[2022-03-03] MEDS: Levothyroxine 125 MCG Tablet PO (05:24)
[2022-03-03] MEDS: Enoxaparin 30 MG/0.3 ML Syringe SC (05:24)
[2022-03-03 07:03] LABS: Absolute Lymphocyte Count 1.47 X10^3/uL (0.83-4.51); Absolute Neutrophil Count 9.1 X10^3/uL (2.0-7.7); Basophil# 0.03 X10^3/uL; Basophil% 0.3 % (0-1); Eosinophil# 0.28 X10^3/uL; Eosinophils% 2.4 % (0-5); Hematocrit 29.2 % (37-47); Hemoglobin 8.9 g/dL (12.0-15.0); Lymphocyte # 1.47 X10^3/ul (0.83-4.51); Lymphocyte % 12.6 % (19-41); Mean Corp Hgb Conc 30.5 g/dL (32-36); Mean Corpuscular Volume 95.1 fL (81-99); Mean Platelet Vol. 9.3 fl (6.2-12.0); Monocyte# 0.59 X10^3/uL; Monocyte% 5.1 % (0-10); NRBC Flagged by Analyzer 0 % (0-5); Neutrophil # 9.13 X10^3/uL (2.7-7.7); Neutrophil % 78.1 % (47-70); Platelet Count 339 K/mm3 (150-450); Red Blood Count 3.07 M/mm3 (4.2-5.4); White Blood Count 11.7 K/mm3 (4.4-11.0)
[2022-03-03 07:15] LABS: Bedside Glucose 160 mg/dL (74-106)
[2022-03-03 07:31] LABS: Anion Gap 6 (5-15); BUN 37 mg/dL (7-18); BUN/Creat Ratio 35.9 RATIO (10-20); Chloride 114 mmol/L (98-107); Creatinine, Serum 1.03 mg/dL (0.55-1.02); EST Glomerular Filtration Rate 55 mL/min (>60); Est Glom Filt Rate - Afr Amer 67 mL/min (>60); Estimated Creatinine Clearance 73.58 ml/min; Glucose 126 mg/dL (74-106); Sodium Level 143 mmol/L (136-145)
[2022-03-03] MEDS: Aspirin E.C. 81 MG Tablet PO ×2 (08:14)
[2022-03-03] MEDS: Sertraline 50 MG Tablet PO (08:14)
[2022-03-03] MEDS: Fluticasone 0.05% 1 SPRAY NASAL.SRY 2 SPRAY NASAL (08:14)
[2022-03-03] MEDS: Pantoprazole Sodium 20 MG Tablet PO (08:14)
[2022-03-03] MEDS: Ensure Plus High Protein 120 ML LIQUID PO ×2 (08:14→14:45)
[2022-03-03] MEDS: Nystatin Powder 15gm Bottle 1 APPLIC TOPICAL ×2 (10:09→23:41)
--- NOTE | 2022-03-03 11:44 | CASEMGMT ---
KARIS spoke with Jazmin in TCU and their discharge that was going to open a bed for patient is now canceled. This KARIS and KARIS Eugene met with patient. KARIS let patient know that TCU had a change in bed availability so they will no longer have a bed for her. Patient said she would be okay with [facility]. KARIS let patient know a referral will be made to [facility] and we will update her as soon as we have an update. KARIS sent a referral to [facility] via [employer]. KARIS also called Mara at [facility] and left her a voice mail letting her know SW sent a referral. Await response. Renée Schmidt CORPORATE ACCOUNTANT ISABEL
--- NOTE | 2022-03-03 11:46 | NURSING ---
Tellez cath DC'd by this nurse. 10 ml of water retracted from balloon by this nurse and tellez DC intact. Pt tolerated well. Attend applied to pt
[2022-03-03 11:55] LABS: Bedside Glucose 166 mg/dL (74-106)
--- NOTE | 2022-03-03 13:02 | PN.HOSP_ITS ---
Subjective Subjective Patient seen and examined. She had no active complaints and had an uneventful night. Review of systems is otherwise negative. BLood cultures negative. Objective Data Objective Data Vital Signs: Vital Signs Temp Pulse Resp BP Pulse Ox O2 Del Method O2 Flow Rate 97.5 F L 89 18 140/45 H 97 Nasal Cannula 2 03/03/22 11:00 03/03/22 11:00 03/03/22 11:00 03/03/22 11:00 03/03/22 11:00 03/03/22 11:00 03/03/22 11:00 FiO2 50 03/03/22 11:00 Oxygen Flow Rate (L/min) 2 Oxygen Delivery Method Nasal Cannula Weight: 224 lb 10.417 oz Body Mass Index (BMI) 41.6 Intake & Output: Intake and Output for Last 24 Hours 03/01/22 03/02/22 03/03/22 23:59 23:59 23:59 Intake Total 3207.5 / 3207.5 1358 / 1358 350 / 350 Output Total 1675 / 1675 900 / 1000 450 / 450 Balance 1532.5 / 1532.5 458 / 358 -100 / -100 Lab / Micro Data Result Diagrams: 03/03/22 06:20 03/03/22 06:20 Labs: Laboratory Results - last 24 hr 03/02/22 06:10: Total Counted 0.04, Neutrophils % (Manual) 0.04 L, Band Neutrophils % 0.04, Lymphocytes % (Manual) 0.04 L, Monocytes % (Manual) 0.04, Eosinophils % (Manual) 0.04, Basophils % (Manual) 0.04, Metamyelocytes % 0.04, Myelocytes % 0.04 H, Promyelocytes % 0.04 H, Blast Cells % 0.04 H*, Plasma Cell % (Manual) 0.04, Other Cells % 0.04, Differential Comment Not Reportable 03/02/22 14:15: Vancomycin Trough 16.6 H 03/02/22 17:05: POC Glucose 95 03/02/22 23:56: POC Glucose 158 H 03/03/22 06:05: POC Glucose 160 H 03/03/22 06:20: WBC 11.7 H, RBC 3.07 L, Hgb 8.9 L, Hct 29.2 L, MCV 95.1, MCH 29.0, MCHC 30.5 L, RDW Std Deviation 49.0 H, RDW Coeff of Umu 14.0, Plt Count 339, MPV 9.3, Immature Gran % (Auto) 1.500 H, Neut % (Auto) 78.1 H, Lymph % (Auto) 12.6 L, [place] % (Auto) 5.1, Eos % (Auto) 2.4, Baso % (Auto) 0.3, Absolute Neuts (auto) 9.1 H, Absolute Lymphs (auto) 1.47, Nucleated RBC % 0 03/03/22 06:20: Sodium 143, Potassium 4.0, Chloride 114 H, Carbon Dioxide 23.0, Anion Gap 6, BUN 37 H, Creatinine 1.03 H, Estim Creat Clear Calc 73.58, Est GFR (MDRD) Af Amer 67, Est GFR (MDRD) Non-Af 55 L, BUN/Creatinine Ratio 35.9 H, Glucose 126 H, Calcium 8.0 L 03/03/22 11:30: POC Glucose 166 H Micro: Microbiology 02/28/22 14:25 Blood Culture (Wb) - No Site/Description Given Blood Culture - Preliminary No growth in 48 hours. 02/28/22 14:00 Blood Culture (Wb) - Right Hand Blood Culture - Preliminary No growth in 48 hours. 02/28/22 04:05 Stool C. difficile DNA Amplification - Final 02/28/22 04:05 Stool Enteric Bacteriology - Final 02/27/22 19:17 Nasal Secretion SARS-CoV-2 & FLU Antigen (Rapid) - Final Physical Exam Const alert, oriented x3 and no apparent distress General Appearance: cooperative HEENT normocephalic, head/scalp atraumatic, moist oral mucous membranes and oropharynx normal Head and Scalp: normocephalic Mouth: oral and palatal mucosa normal Eyes PERRL and EOMs intact bilaterally Neck no lymphadenopathy and supple Lymph Lymphatic: no lymphadenopathy noted Resp normal respiratory effort, normal air movement, no retractions, no use of accessory muscles and clear to auscultation bilaterally Cardio regular rate, regular rhythm, S1 normal heart sound, S2 normal heart sound and no murmurs GI normal to inspection, nondistended, normoactive bowel sounds, soft to palpation, non-tender and non-distended Extremity normal to inspection, full ROM, normal capillary refill and no clubbing, cy anosis or edema Skin General Skin Exam: no breakdown Neuro oriented x3, CN's II-XII intact bilaterally, moves all extremities and no focal motor deficits Sensorium / Orientation: awake and alert Motor Exam: strength 5/5 throughout Psych thought process normal, cooperative and affect normal Assessment & Plan Assessment/Plan (1) Hypotension: (2) Hypoglycemia: (3) Diarrhea: PLAN: Plan #SHock * appears to be hypovolemic,due to diarrhea * resolved * diarrhea resolved. * off levophed. * on IV vancomycin and zosyn to cover for any occult infection * blood cultures are negative * will dc IV antibiotics #Diarrhea * C Diff and enteric pathogen screen was normal * resolved. * * #Hypoglycemia * resolved. Eating much better * hold sitagliptin * ISS. Accuchecks ACHS * #Hypertension:continue holding BP meds due to hypotension #Hypokalemia: resolved. K is 4 #WENDY on CKD: * resolved. Cr is down to 1.1 * * #Paroxysmal afib: hold beta blockers due to hypotension #HYpothyroidism: on synthroid DVT prophylaxis: lovenox Disposition: awaiting placement Charges/Coding Visit Charges Inpatient E&M: 34796 Subs Hosp L2
--- NOTE | 2022-03-03 16:20 | CASEMGMT ---
KARIS Note KARIS Renée was informed [facility] was declining patient due to Covid outbreak at their facility. SW [facility]. KARIS explained we would revisit SNF placement options on Sunday as a TCU bed could potentially be available at the beginning of next week, otherwise we could explore alternative choices. Patient was receptive towards information. Valorie James CONSULTING MANAGER, ISABLE
[2022-03-03 17:21] LABS: Bedside Glucose 166 mg/dL (74-106)
[2022-03-03] MEDS: Atorvastatin Calcium 40 MG Tablet PO (23:42)
[2022-03-04] VITALS (13 sets, daily range): BP systolic 132–144; BP diastolic 58–76; PULSE 74–94; RESP 16; TEMP 36.6–36.9; O2SAT 90–95
[2022-03-04 00:36] LABS: Bedside Glucose 156 mg/dL (74-106)
[2022-03-04] MEDS: Enoxaparin 40 MG/0.4 ML Syringe SC (06:12)
[2022-03-04] MEDS: Levothyroxine 125 MCG Tablet PO (06:12)
[2022-03-04] MEDS: Menthol/Lanolin/Calamine/Znox 113 GM Tube 1 APPLIC TOPICAL ×3 (06:15→21:34)
[2022-03-04 06:25] LABS: Absolute Lymphocyte Count 1.82 X10^3/uL (0.83-4.51); Absolute Neutrophil Count 8.3 X10^3/uL (2.0-7.7); Basophil# 0.03 X10^3/uL; Basophil% 0.3 % (0-1); Eosinophil# 0.32 X10^3/uL; Eosinophils% 2.8 % (0-5); Hematocrit 29.8 % (37-47); Hemoglobin 9.2 g/dL (12.0-15.0); Lymphocyte # 1.82 X10^3/ul (0.83-4.51); Lymphocyte % 15.9 % (19-41); Mean Corp Hgb Conc 30.9 g/dL (32-36); Mean Platelet Vol. 9.2 fl (6.2-12.0); Monocyte# 0.77 X10^3/uL; Monocyte% 6.7 % (0-10); NRBC Flagged by Analyzer 0 % (0-5); Neutrophil # 8.25 X10^3/uL (2.7-7.7); Neutrophil % 72.2 % (47-70); Platelet Count 314 K/mm3 (150-450); RBC Distribution Width CV 13.5 % (11.6-14.6); RBC Distribution Width SD 46.6 fl (35.1-43.9); Red Blood Count 3.17 M/mm3 (4.2-5.4); White Blood Count 11.4 K/mm3 (4.4-11.0)
[2022-03-04 06:50] LABS: Anion Gap 4 (5-15); BUN 25 mg/dL (7-18); BUN/Creat Ratio 27.9 RATIO (10-20); Calcium,Total 8.3 mg/dL (8.5-10.1); Chloride 114 mmol/L (98-107); EST Glomerular Filtration Rate 65 mL/min (>60); Est Glom Filt Rate - Afr Amer 78 mL/min (>60); Glucose 106 mg/dL (74-106); Potassium 3.9 mmol/L (3.5-5.1); Sodium Level 142 mmol/L (136-145)
[2022-03-04] MEDS: Fluticasone 0.05% 1 SPRAY NASAL.SRY 2 SPRAY NASAL (10:47)
[2022-03-04] MEDS: Ensure Plus High Protein 120 ML LIQUID PO ×3 (10:47→17:51)
[2022-03-04] MEDS: Pantoprazole Sodium 20 MG Tablet PO (10:47)
[2022-03-04] MEDS: Sertraline 50 MG Tablet PO (10:47)
[2022-03-04] MEDS: Nystatin Powder 15gm Bottle 1 APPLIC TOPICAL ×2 (10:48→21:35)
--- NOTE | 2022-03-04 10:59 | PN.HOSP_ITS ---
Subjective Subjective Patient seen and examined. She has no complaints and had an uneventful night. Review of systems otherwise negative. She is awaiting placement. Objective Data Objective Data Vital Signs: Vital Signs Temp Pulse Resp BP Pulse Ox O2 Del Method O2 Flow Rate 98 F 89 16 141/60 H 90 Room Air 2 03/04/22 05:00 03/04/22 05:00 03/04/22 05:00 03/04/22 05:00 03/04/22 08:04 03/04/22 08:04 03/04/22 05:00 FiO2 50 03/04/22 05:00 Oxygen Flow Rate (L/min) 2 Oxygen Delivery Method Room Air Weight: 222 lb 3.615 oz Body Mass Index (BMI) 41.6 Intake & Output: Intake and Output for Last 24 Hours 03/02/22 03/03/22 03/04/22 23:59 23:59 23:59 Intake Total 1358 / 1358 500 / 500 0 / 0 Output Total 900 / 1000 450 / 450 Balance 458 / 358 50 / 50 0 / 0 Lab / Micro Data Result Diagrams: 03/04/22 05:51 03/04/22 05:51 Labs: Laboratory Results - last 24 hr 03/03/22 11:30: POC Glucose 166 H 03/03/22 16:53: POC Glucose 166 H 03/03/22 23:36: POC Glucose 156 H 03/04/22 05:51: WBC 11.4 H, RBC 3.17 L, Hgb 9.2 L, Hct 29.8 L, MCV 94.0, MCH 29.0, MCHC 30.9 L, RDW Std Deviation 46.6 H, RDW Coeff of Umu 13.5, Plt Count 314, MPV 9.2, Immature Gran % (Auto) 2.100 H, Neut % (Auto) 72.2 H, Lymph % (Auto) 15.9 L, [place] % (Auto) 6.7, Eos % (Auto) 2.8, Baso % (Auto) 0.3, Absolute Neuts (auto) 8.3 H, Absolute Lymphs (auto) 1.82, Nucleated RBC % 0 03/04/22 05:51: Sodium 142, Potassium 3.9, Chloride 114 H, Carbon Dioxide 24.0, Anion Gap 4 L, BUN 25 H, Creatinine 0.90, Estim Creat Clear Calc 83.30, Est GFR (MDRD) Af Amer 78, Est GFR (MDRD) Non-Af 65, BUN/Creatinine Ratio 27.9 H, Glucose 106, Calcium 8.3 L Micro: Microbiology 02/28/22 14:25 Blood Culture (Wb) - No Site/Description Given Blood Culture - Preliminary No growth in 48 hours. 02/28/22 14:00 Blood Culture (Wb) - Right Hand Blood Culture - Preliminary No growth in 48 hours. 02/28/22 04:05 Stool C. difficile DNA Amplification - Final 02/28/22 04:05 Stool Enteric Bacteriology - Final 02/27/22 19:17 Nasal Secretion SARS-CoV-2 & FLU Antigen (Rapid) - Final Physical Exam Const alert, oriented x3 and no apparent distress General Appearance: cooperative HEENT normocephalic, head/scalp atraumatic, moist oral mucous membranes and oropharynx normal Head and Scalp: normocephalic Mouth: oral and palatal mucosa normal Eyes PERRL, EOMs intact bilaterally and conjunctivae normal Neck no lymphadenopathy and supple Lymph Lymphatic: no lymphadenopathy noted Resp normal respiratory effort, normal air movement, no retractions, no use of accessory muscles and clear to auscultation bilaterally Cardio regular rate, regular rhythm, S1 normal heart sound, S2 normal heart sound and no murmurs GI normal to inspection, nondistended, normoactive bowel sounds, soft to palpation, non-tender and non-distended Extremity normal to inspection, full ROM, normal capillary refill and no clubbing, cyanosis or edema Skin General Skin Exam: no breakdown Neuro oriented x3, CN's II-XII intact bilaterally, moves all extremities and no focal motor deficits Sensorium / Orientation: awake and alert Motor Exam: strength 5/5 throughout Psych thought process normal, cooperative and affect normal Assessment & Plan Assessment/Plan (1) Hypotension: (2) Hypoglycemia: (3) Diarrhea: PLAN: Plan #SHock * hypovolemic, from diarrhea. * resolved * diarrhea resolved. * antibiotics discontinued as blood cultures were negative * #Diarrhea * C Diff and enteric pathogen screen was normal * resolved. * * #Hypoglycemia * resolved. Eating much better * hold sitagliptin * ISS. Accuchecks ACHS * #Hypertension:continue holding BP meds due to hypotension #Hypokalemia: resolved. K is 4 #WENDY on CKD: * resolved. * * #Paroxysmal afib: hold beta blockers due to hypotension #HYpothyroidism: on synthroid DVT prophylaxis: lovenox Disposition: awaiting placement Charges/Coding Visit Charges Inpatient E&M: 18349 Subs Hosp L2
[2022-03-04 11:40] LABS: Bedside Glucose 96 mg/dL (74-106)
[2022-03-04 12:40] LABS: Bedside Glucose 144 mg/dL (74-106)
[2022-03-04] MEDS: Atorvastatin Calcium 40 MG Tablet PO (21:35)
[2022-03-05] VITALS (14 sets, daily range): BP systolic 109–152; BP diastolic 54–68; PULSE 79–101; RESP 16–18; TEMP 36.6–37.1; O2SAT 92–99
[2022-03-05] MEDS: Enoxaparin 40 MG/0.4 ML Syringe SC (06:29)
[2022-03-05] MEDS: Menthol/Lanolin/Calamine/Znox 113 GM Tube 1 APPLIC TOPICAL ×3 (06:29→23:21)
[2022-03-05] MEDS: Levothyroxine 125 MCG Tablet PO (06:29)
[2022-03-05 06:55] LABS: Bedside Glucose 113 mg/dL (74-106)
[2022-03-05 07:43] LABS: Absolute Lymphocyte Count 1.64 X10^3/uL (0.83-4.51); Basophil# 0.03 X10^3/uL; Basophil% 0.3 % (0-1); Eosinophils% 2.7 % (0-5); Hematocrit 30.2 % (37-47); Hemoglobin 9.5 g/dL (12.0-15.0); Lymphocyte # 1.64 X10^3/ul (0.83-4.51); Lymphocyte % 14.9 % (19-41); Mean Corp Hgb Conc 31.5 g/dL (32-36); Mean Corpuscular Hgb 29.8 pg (27.0-32.0); Mean Corpuscular Volume 94.7 fL (81-99); Mean Platelet Vol. 9.1 fl (6.2-12.0); Monocyte# 0.72 X10^3/uL; Monocyte% 6.6 % (0-10); NRBC Flagged by Analyzer 0 % (0-5); Neutrophil # 8.04 X10^3/uL (2.7-7.7); Neutrophil % 73.2 % (47-70); Platelet Count 293 K/mm3 (150-450); RBC Distribution Width CV 13.6 % (11.6-14.6); RBC Distribution Width SD 46.8 fl (35.1-43.9); Red Blood Count 3.19 M/mm3 (4.2-5.4)
[2022-03-05 08:03] LABS: Anion Gap 5 (5-15); BUN 20 mg/dL (7-18); Calcium,Total 8.2 mg/dL (8.5-10.1); Chloride 112 mmol/L (98-107); Creatinine, Serum 0.87 mg/dL (0.55-1.02); EST Glomerular Filtration Rate 67 mL/min (>60); Est Glom Filt Rate - Afr Amer 81 mL/min (>60); Estimated Creatinine Clearance 85.83 ml/min; Glucose 112 mg/dL (74-106); Potassium 3.9 mmol/L (3.5-5.1); Sodium Level 142 mmol/L (136-145)
[2022-03-05] MEDS: Pantoprazole Sodium 20 MG Tablet PO (09:23)
[2022-03-05] MEDS: Fluticasone 0.05% 1 SPRAY NASAL.SRY 2 SPRAY NASAL (09:24)
[2022-03-05] MEDS: Nystatin Powder 15gm Bottle 1 APPLIC TOPICAL ×2 (09:24→23:21)
[2022-03-05] MEDS: Aspirin E.C. 81 MG Tablet PO (09:24)
[2022-03-05] MEDS: Sertraline 50 MG Tablet PO (09:24)
[2022-03-05 11:51] LABS: Bedside Glucose 156 mg/dL (74-106)
--- NOTE | 2022-03-05 12:44 | PN.HOSP_ITS ---
Subjective Subjective Patient seen and examined. She had no complaints and had an uneventful night. Review of systems is otherwise negative. She ahs remained hemodynamically stable. Objective Data Objective Data Vital Signs: Vital Signs Temp Pulse Resp BP Pulse Ox O2 Del Method O2 Flow Rate 98.2 F 95 18 109/57 L 95 Room Air 2 03/05/22 11:25 03/05/22 11:25 03/05/22 11:25 03/05/22 11:25 03/05/22 11:25 03/05/22 11:25 03/05/22 09:17 FiO2 50 03/05/22 09:17 Oxygen Flow Rate (L/min) 2 Oxygen Delivery Method Room Air Weight: 221 lb 5.506 oz Body Mass Index (BMI) 41.6 Intake & Output: Intake and Output for Last 24 Hours 03/03/22 03/04/22 03/05/22 23:59 23:59 23:59 Intake Total 500 / 500 1300 / 1840 900 / 900 Output Total 450 / 450 200 / 200 0 / 0 Balance 50 / 50 1100 / 1640 900 / 900 Lab / Micro Data Result Diagrams: 03/05/22 07:07 03/05/22 07:07 Labs: Laboratory Results - last 24 hr 03/05/22 06:28: POC Glucose 113 H 03/05/22 07:07: WBC 11.0, RBC 3.19 L, Hgb 9.5 L, Hct 30.2 L, MCV 94.7, MCH 29.8, MCHC 31.5 L, RDW Std Deviation 46.8 H, RDW Coeff of Umu 13.6, Plt Count 293, MPV 9.1, Immature Gran % (Auto) 2.300 H, Neut % (Auto) 73.2 H, Lymph % (Auto) 14.9 L , [place] % (Auto) 6.6, Eos % (Auto) 2.7, Baso % (Auto) 0.3, Absolute Neuts (auto) 8.0 H, Absolute Lymphs (auto) 1.64, Nucleated RBC % 0 03/05/22 07:07: Sodium 142, Potassium 3.9, Chloride 112 H, Carbon Dioxide 25.0, Anion Gap 5, BUN 20 H, Creatinine 0.87, Estim Creat Clear Calc 85.83, Est GFR (MDRD) Af Amer 81, Est GFR (MDRD) Non-Af 67, BUN/Creatinine Ratio 23.0 H, Glucose 112 H, Calcium 8.2 L 03/05/22 11:24: POC Glucose 156 H Micro: Microbiology 02/28/22 14:25 Blood Culture (Wb) - No Site/Description Given Blood Culture - Preliminary No growth in 48 hours. 02/28/22 14:00 Blood Culture (Wb) - Right Hand Blood Culture - Preliminary No growth in 48 hours. 02/28/22 04:05 Stool C. difficile DNA Amplification - Final 02/28/22 04:05 Stool Enteric Bacteriology - Final 02/27/22 19:17 Nasal Secretion SARS-CoV-2 & FLU Antigen (Rapid) - Final Physical Exam Const alert, oriented x3 and no apparent distress General Appearance: cooperative HEENT normocephalic, head/scalp atraumatic, moist oral mucous membranes and oropharynx normal Head and Scalp: normocephalic Mouth: oral and palatal mucosa normal Eyes PERRL, EOMs intact bilaterally and conjunctivae normal Neck no lymphadenopathy and supple Lymph Lymphatic: no lymphadenopathy noted Resp normal respiratory effort, normal air movement, no retractions, no use of accessory muscles and clear to auscultation bilaterally Cardio regular rate, regular rhythm, S1 normal heart sound, S2 normal heart sound and no murmurs GI normal to inspection, nondistended, normoactive bowel sounds, soft to palpation, non-tender and non-distended Extremity normal to inspection, full ROM, normal capillary refill and no clubbing, cyanosis or edema Skin General Skin Exam: no breakdown Neuro oriented x3, CN's II-XII intact bilaterally, moves all extremities and no focal motor deficits Sensorium / Orientation: awake and alert Motor Exam: strength 5/5 throughout Psych cooperative and affect normal Assessment & Plan Assessment/Plan (1) Hypotension: (2) Hypoglycemia: (3) Diarrhea: PLAN: Plan #SHock * hypovolemic, from diarrhea. * resolved * diarrhea resolved. * antibiotics discontinued as blood cultures were negative * #Diarrhea * C Diff and enteric pathogen screen was normal * resolved. * * #Hypoglycemia * resolved. * resume sitagliptin * ISS. Accuchecks ACHS * #Hypertension:continue holding BP meds due to hypotension #Hypokalemia: resolved. K is 4 #WENDY on CKD: * resolved. * #Paroxysmal afib: hold beta blockers due to hypotension. BP continues to run on the lower side of normal. #HYpothyroidism: on synthroid DVT prophylaxis: lovenox Disposition: awaiting placement Charges/Coding Visit Charges Inpatient E&M: 74226 Subs Hosp L2
[2022-03-05 17:25] LABS: Bedside Glucose 173 mg/dL (74-106)
[2022-03-05] MEDS: Atorvastatin Calcium 40 MG Tablet PO (23:21)
[2022-03-05 23:50] LABS: Bedside Glucose 116 mg/dL (74-106)
[2022-03-06] VITALS (14 sets, daily range): BP systolic 112–144; BP diastolic 53–65; PULSE 83–114; RESP 16; TEMP 36.8–37.2; O2SAT 92–96
[2022-03-06 06:05] LABS: Absolute Lymphocyte Count 1.57 X10^3/uL (0.83-4.51); Absolute Neutrophil Count 9.7 X10^3/uL (2.0-7.7); Basophil# 0.03 X10^3/uL; Basophil% 0.2 % (0-1); Eosinophil# 0.33 X10^3/uL; Eosinophils% 2.6 % (0-5); Hematocrit 28.5 % (37-47); Hemoglobin 8.9 g/dL (12.0-15.0); Lymphocyte # 1.57 X10^3/ul (0.83-4.51); Lymphocyte % 12.4 % (19-41); Mean Corp Hgb Conc 31.2 g/dL (32-36); Mean Corpuscular Hgb 28.9 pg (27.0-32.0); Mean Corpuscular Volume 92.5 fL (81-99); Mean Platelet Vol. 8.8 fl (6.2-12.0); Monocyte# 0.78 X10^3/uL; Monocyte% 6.2 % (0-10); NRBC Flagged by Analyzer 0 % (0-5); Neutrophil # 9.69 X10^3/uL (2.7-7.7); Neutrophil % 76.8 % (47-70); Platelet Count 271 K/mm3 (150-450); RBC Distribution Width CV 13.6 % (11.6-14.6); RBC Distribution Width SD 45.8 fl (35.1-43.9); Red Blood Count 3.08 M/mm3 (4.2-5.4); White Blood Count 12.6 K/mm3 (4.4-11.0)
[2022-03-06] MEDS: Levothyroxine 125 MCG Tablet PO (06:28)
[2022-03-06] MEDS: Menthol/Lanolin/Calamine/Znox 113 GM Tube 1 APPLIC TOPICAL ×2 (06:32→13:25)
[2022-03-06] MEDS: Enoxaparin 40 MG/0.4 ML Syringe SC (06:32)
[2022-03-06 06:37] LABS: Anion Gap 3 (5-15); BUN 19 mg/dL (7-18); BUN/Creat Ratio 19.1 RATIO (10-20); Calcium,Total 8.5 mg/dL (8.5-10.1); Chloride 112 mmol/L (98-107); EST Glomerular Filtration Rate 57 mL/min (>60); Est Glom Filt Rate - Afr Amer 69 mL/min (>60); Estimated Creatinine Clearance 74.67 ml/min; Glucose 123 mg/dL (74-106); Potassium 4.2 mmol/L (3.5-5.1); Sodium Level 140 mmol/L (136-145)
[2022-03-06 07:05] LABS: Bedside Glucose 124 mg/dL (74-106)
[2022-03-06] MEDS: Sertraline 50 MG Tablet PO (07:58)
[2022-03-06] MEDS: Pantoprazole Sodium 20 MG Tablet PO (07:58)
[2022-03-06] MEDS: Fluticasone 0.05% 1 SPRAY NASAL.SRY 2 SPRAY NASAL (07:58)
[2022-03-06] MEDS: Aspirin E.C. 81 MG Tablet PO (07:58)
[2022-03-06] MEDS: Nystatin Powder 15gm Bottle 1 APPLIC TOPICAL (09:59)
[2022-03-06 11:45] LABS: Bedside Glucose 179 mg/dL (74-106)
--- NOTE | 2022-03-06 14:27 | WOUNDNOTE ---
wound photo: pannus
--- NOTE | 2022-03-06 14:46 | PCM.TXEXTCAR ---
Diet Diet Order/Speech Therapy: 02/28/22 00:10 Diet: Regular - General Food consistency:: Regular Liquid Consistency:: Regular/Thin Routine Orders/Code Status Suppository Type: Dulcolax 10mg Suppository Frequency: Daily PRN O2 Frequency: PRN Keep PO Greater than or Equal to (%): 92 Wound(s) lt back: Wound Type: Scabbed Shingles left abdominal fold: Wound Type: Pressure Injury left lower abdominal pannus: Wound Type: Pressure Injury Dressing Change: new Mepilex applied Therapies Physical Therapy: Eval and Treat Occupational Therapy: Eval and Treat Problem/Diagnosis (1) Hypotension: Status: Acute Code(s): I95.9 - Hypotension, unspecified (2) Hypoglycemia: Status: Acute Code(s): E16.2 - Hypoglycemia, unspecified (3) Diarrhea: Status: Acute Code(s): R19.7 - Diarrhea, unspecified Plan #hypotension 2/2 hypovolemia #Diarrhea #hypoglycemia #Hypokalemia: resolved. K is 4 #WENDY on CKD:resolved #pafib #Hypothyroidism:? 76-year-old female with a history of CVA, CKD stage III, type 2 diabetes, DVT, hypothyroidism who presented to [facility] 02/27/2022 with low blood sugar and diarrhea as well as generalized illness and weakness for 1 week. Her glucose was 37 upon squad arrival. She denied taking any insulin or extra medications. It was thought maybe she was septic due to pneumonia but cultures were negative and clinical picture more consistent with hypovolemia from her diarrhea. She did briefly require ICU d/t persistent hypotension but improved with supportive care and antibiotics were discontinued when cx were negative. Diarrhea also resolved as did her hypoglycemia. On the day of discharge she reports feeling well, appetite improving, no diarrhea. Denies chest pain or shortness of breath. No complaints Allergies/Procedures Done in Hospital Allergies adhesive tape Allergy (Intermediate, Verified 12/22/21 10:44) Unknown if adhesive is in contact for snf Sulfa (Sulfonamide Antibiotics) Allergy (Verified 12/22/21 10:44) Rash lisinopril Adverse Reaction (Verified 12/22/21 10:44) cough Type of Care/Length of Stay Estimated LOS: Convalescent Care Less Than 30 days Type of Care Needed: Intermediate Rehab Potential: Good Prognosis: Good Additional Orders/Day of Discharge Day of Discharge: 12/05/22 Dietary and Speech Recommendations Dietitian Recommendations/Changes: Will continue regular diet for now as appetite improves. Will d/c ensure plus high protein 120mL 4x/day w/ mepdass; pt is refusing. Discharge Plan Admission Admit Date/Time: 02/28/22 12:46 Primary Reason for Your Visit: Low blood glucose Attending Provider: Nayana Wall Primary Care Provider: Flavia Aldrich Consulting Providers: Shayan French ; Getachew Mcknight ; Darian Douglass ; Jersey Brooks ; Phong Sheikh ; Katja Benson NP ; Netta Jaramillo Instructions Patient Instructions: ED Hypoglycemia, Nondiabetic Additional Instructions / Restrictions: ?Your glimepiride has been held due to your low blood sugars but he may resume your Januvia ?You can resume your magnesium supplement but if you notice this causes diarrhea he may need to discontinue this, please discuss this with your primary care physician ?You can continue your other home medications -Please call your primary care provider's office upon discharge to schedule a hospital follow up within 1 week. -For any concerning signs or symptoms please call 911 or proceed to the nearest emergency department Discharge Orders/Prescriptions Prescriptions: Continued fluticasone propionate [Allergy Relief (fluticasone)] 50 mcg/actuation spray,suspension 2 spray INTRANASAL DAILY Rx Instructions: administer into each nostril fish oil-dha-epa 1,200-144-216 mg capsule 1,200 cap PO DAILY levothyroxine 25 mcg tablet 125 mcg PO DAILY esomeprazole magnesium [Nexium] 20 mg capsule,delayed release(DR/EC) 20 mg PO DAILY multivitamin 1 EACH tablet 1 ea PO DAILY Januvia 50 MG tablet 50 mg PO DAILY nifedipine 30 MG tablet extended release 24hr 30 mg PO DAILY Rx Instructions: Hold for SBP less than 120 mmHg atorvastatin 40 MG tablet 40 mg PO QHS magnesium oxide 400 MG tablet 400 mg PO DAILYCM nystatin [Nyamyc] 100,000 unit/gram powder 1 applic topical BID Protocol: *Topical Application Instructions APPLICATION INSTRUCTIONS: apply to affected areas losartan 100 mg tablet 100 mg PO DAILY Rx Instructions: Hold for SBP less than 120 mmHg sertraline 50 MG tablet 50 mg PO DAILY atenolol 50 mg tablet 25 mg PO QHS Rx Instructions: Hold for heart less than 60 or systolic blood pressure less than 100 mmHg. aspirin 81 mg Tablet,Delayed Release (Dr/Ec) 81 mg PO BREAKFAST Qty: 0 0RF oxycodone 5 mg capsule 5 mg PO Q6H PRN (Reason: pain) 7 Days Qty: 28 0RF ondansetron 4 mg tablet,disintegrating 4 mg PO Q8H PRN (Reason: nausea and vomiting) Qty: 14 0RF Discontinued sennosides-docusate sodium 8.6-50 mg tablet 2 tab-cap PO Q OTHER DAY glimepiride 1 MG tablet 1 mg PO DAILY Rx Instructions: Hold if glucose less than 130 mg/dl Referrals / Follow Up: Flavia Aldrich MD [Primary Care Provider] - Within 1 Week Disposition Disposition (needs filled in before D/C Order can be placed): NonSkilled NH/Intermed Care
--- NOTE | 2022-03-06 15:09 | PCM.DC.SUM ---
Providers Date of Admission: 02/28/22 Date of Discharge: 03/06/22 Primary Care Physician: Dr. Flavia Aldrich MD Consultations 02/28/22 12:52 Consult: Studio Coordinator / Pulmonary Medicine Routine Consulting Provider: Pulmonary Medicine jim [place] Reason for Consult: hypotension EMERGENT Consult: No MD Notified: Yes Date Notified: 02/28/22 Time Notified: 12:39 Method of Notification: Text 03/01/22 08:33 Consult: Onc/Wound/[employer] Routine Comment: Reason for Consult:: pressure injury to left abdominal fold Reason For Visit: hypoglycemia Diagnosis Discharge Diagnosis (1) Hypotension: Status: Acute Code(s): I95.9 - Hypotension, unspecified (2) Hypoglycemia: Status: Acute Code(s): E16.2 - Hypoglycemia, unspecified (3) Diarrhea: Status: Acute Code(s): R19.7 - Diarrhea, unspecified Plan #hypotension 2/2 hypovolemia #Diarrhea #hypoglycemia #Hypokalemia: resolved. K is 4 #WENDY on CKD:resolved #pafib #Hypothyroidism:? Medications at Discharge Home Medications multivitamin 1 ea PO DAILY supplement 09/08/16 sitagliptin phosphate 50 mg tablet (Januvia) 50 mg PO DAILY diabetes 06/16/19 fish oil-dha-epa 1,200 mg-144 mg-216 mg capsule 1,200 cap PO DAILY Supplement 09/01/19 fluticasone propionate 50 mcg/actuation nasal spray,suspension (Allergy Relief (fluticasone)) 2 spray intranasal DAILY Allergy Relief 09/01/19 atenolol 50 mg tablet 25 mg PO QHS Blood Pressure 09/17/20 atorvastatin 40 mg tablet 40 mg PO QHS Cholesterol 09/17/20 losartan 100 mg tablet 100 mg PO DAILY Blood Pressure 09/17/20 magnesium oxide 400 mg (241.3 mg magnesium) tablet 400 mg PO DAILYCM Supplement 09/17/20 nifedipine 30 mg tablet,extended release 24 hr 30 mg PO DAILY Blood Pressure 09/17/20 nystatin 100,000 unit/gram topical powder (Nyamyc) 1 applic topical BID Redness 09/17/20 sertraline 50 mg tablet 50 mg PO DAILY Mood 09/17/20 aspirin 81 mg tablet,delayed release 81 mg PO BREAKFAST #0 tabs 10/06/20 esomeprazole magnesium 20 mg capsule,delayed release (Nexium) 20 mg PO DAILY 12/09/21 levothyroxine 25 mcg tablet 125 mcg PO DAILY Thyroid 03/10/21 ondansetron 4 mg disintegrating tablet 4 mg PO Q8H PRN nausea and vomiting #14 tabs 12/22/21 oxycodone 5 mg capsule 5 mg PO Q6H PRN pain 7 days #28 caps 12/22/21 Hospital Course Summary of Care Provided Minutes Spent on Discharge: 32 Hospital Course: 76-year-old female with a history of CVA, CKD stage III, type 2 diabetes, DVT, hypothyroidism who presented to [facility] 02/27/2022 with low blood sugar and diarrhea as well as generalized illness and weakness for 1 week. Her glucose was 37 upon squad arrival. She denied taking any insulin or extra medications. It was thought maybe she was septic due to pneumonia but cultures were negative and clinical picture more consistent with hypovolemia from her diarrhea. She did briefly require ICU d/t persistent hypotension but improved with supportive care and antibiotics were discontinued when cx were negative. Diarrhea also resolved as did her hypoglycemia. On the day of discharge she reports feeling well, appetite improving, no diarrhea. Denies chest pain or shortness of breath. No other complaints today Physical Exam Const alert and no apparent distress Constitutional Narrative: Oriented HEENT normocephalic and head/scalp atraumatic Eyes Eyes Narrative: EOM grossly intact, anicteric Neck supple Resp normal respiratory effort and clear to auscultation bilaterally Cardio regular rate and regular rhythm GI soft to palpation, non-tender and non-distended Extremity Extremity Narrative: No edema appreciated Neuro moves all extremities Neuro Narrative: No overt focal deficits appreciated Psych Psych Narrative: Cooperative Weight / BMI Weight Weight: 100.7 kg Body Mass Index (BMI) 41.6 ABG / Lab / Microbiology Data Result Diagrams: 03/06/22 05:56 03/06/22 05:56 Laboratory: Laboratory Results - last 24 hr 03/05/22 16:58: POC Glucose 173 H 03/05/22 23:26: POC Glucose 116 H 03/06/22 05:56: WBC 12.6 H, RBC 3.08 L, Hgb 8.9 L, Hct 28.5 L, MCV 92.5, MCH 28.9, MCHC 31.2 L, RDW Std Deviation 45.8 H, RDW Coeff of Umu 13.6, Plt Count 271, MPV 8.8, Immature Gran % (Auto) 1.800 H, Neut % (Auto) 76.8 H, Lymph % (Auto) 12.4 L, [place] % (Auto) 6.2, Eos % (Auto) 2.6, Baso % (Auto) 0.2, Absolute Neuts (auto) 9.7 H, Absolute Lymphs (auto) 1.57, Nucleated RBC % 0 03/06/22 05:56: Sodium 140, Potassium 4.2, Chloride 112 H, Carbon Dioxide 25.0, Anion Gap 3 L, BUN 19 H, Creatinine 1.00, Estim Creat Clear Calc 74.67, Est GFR (MDRD) Af Amer 69, Est GFR (MDRD) Non-Af 57 L, BUN/Creatinine Ratio 19.1, Glucose 123 H, Calcium 8.5 03/06/22 06:27: POC Glucose 124 H 03/06/22 11:05: POC Glucose 179 H Microbiology: Microbiology 02/28/22 14:25 Blood Culture (Wb) - No Site/Description Given Blood Culture - Final No growth in 5 days. 02/28/22 14:00 Blood Culture (Wb) - Right Hand Blood Culture - Final No growth in 5 days. 02/28/22 04:05 Stool C. difficile DNA Amplification - Final 02/28/22 04:05 Stool Enteric Bacteriology - Final 02/27/22 19:17 Nasal Secretion SARS-CoV-2 & FLU Antigen (Rapid) - Final D/C Instructions Discharge Diet: No restrictions Meaningful Use Info Meaningful Use Diagnoses (Choose all that apply): None applicable Discharge Plan Admission Admit Date/Time: 02/28/22 12:46 Primary Reason for Your Visit: Low blood glucose Attending Provider: Nayana Wall Primary Care Provider: Flavia Aldrich Consulting Providers: Shayan French ; Getachew Mcknight ; Darian Douglass ; Jersey Brooks ; Phong Sheikh ; Katja Benson NP ; Netta Jaramillo Instructions Patient Instructions: ED Hypoglycemia, Nondiabetic Additional Instructions / Restrictions: ?Your glimepiride has been held due to your low blood sugars but he may resume your Januvia ?You can resume your magnesium supplement but if you notice this causes diarrhea he may need to discontinue this, please discuss this with your primary care physician ?You can continue your other home medications -Please call your primary care provider's office upon discharge to schedule a hospital follow up within 1 week. -For any concerning signs or symptoms please call 911 or proceed to the nearest emergency department Discharge Orders/Prescriptions Prescriptions: Continued fluticasone propionate [Allergy Relief (fluticasone)] 50 mcg/actuation spray,suspension 2 spray INTRANASAL DAILY Rx Instructions: administer into each nostril fish oil-dha-epa 1,200-144-216 mg capsule 1,200 cap PO DAILY levothyroxine 25 mcg tablet 125 mcg PO DAILY esomeprazole magnesium [Nexium] 20 mg capsule,delayed release(DR/EC) 20 mg PO DAILY multivitamin 1 EACH tablet 1 ea PO DAILY Januvia 50 MG tablet 50 mg PO DAILY nifedipine 30 MG tablet extended release 24hr 30 mg PO DAILY Rx Instructions: Hold for SBP less than 120 mmHg atorvastatin 40 MG tablet 40 mg PO QHS magnesium oxide 400 MG tablet 400 mg PO DAILYCM nystatin [Nyamyc] 100,000 unit/gram powder 1 applic topical BID Protocol: *Topical Application Instructions APPLICATION INSTRUCTIONS: apply to affected areas losartan 100 mg tablet 100 mg PO DAILY Rx Instructions: Hold for SBP less than 120 mmHg sertraline 50 MG tablet 50 mg PO DAILY atenolol 50 mg tablet 25 mg PO QHS Rx Instructions: Hold for heart less than 60 or systolic blood pressure less than 100 mmHg. aspirin 81 mg Tablet,Delayed Release (Dr/Ec) 81 mg PO BREAKFAST Qty: 0 0RF oxycodone 5 mg capsule 5 mg PO Q6H PRN (Reason: pain) 7 Days Qty: 28 0RF ondansetron 4 mg tablet,disintegrating 4 mg PO Q8H PRN (Reason: nausea and vomiting) Qty: 14 0RF Discontinued sennosides-docusate sodium 8.6-50 mg tablet 2 tab-cap PO Q OTHER DAY glimepiride 1 MG tablet 1 mg PO DAILY Rx Instructions: Hold if glucose less than 130 mg/dl Referrals / Follow Up: Flavia Aldrich MD [Primary Care Provider] - Within 1 Week Disposition Disposition (needs filled in before D/C Order can be placed): NonSkilled NH/Intermed Care Charges/Coding Visit Charges Inpatient E&M: 58890 Disch Hosp
--- NOTE | 2022-03-06 15:12 | CASEMGMT ---
KARIS Note KARIS was notified by Jazmin with TCU that there was a bed available for the patient. KARIS informed patient she was able to go to TCU. Patient in agreement with placement. Plan: TCU Valorie CARTAGENA, ISABEL
== END 2022-03-06 16:04 | disposition intermediate care facility (04) | DRG 871 ==
LOC: ED 23:13 → PCU 23:20 → ICU 02-28 13:46 → PCU 03-02 08:43
PROVIDERS: Student in an Organized Health Care Education/Training Program; Admitting Provider Family Medicine; Emergency Provider Emergency Medicine; PCP Internal Medicine; Visit Provider Internal Medicine
DX: R57.1 Hypovolemic shock (principal); J18.9 Pneumonia, unspecified organism; N17.9 Acute kidney failure, unspecified; Z68.41 Body mass index [BMI] 40.0-44.9, adult; E11.649 Type 2 diabetes mellitus with hypoglycemia without coma; E11.22 Type 2 diabetes mellitus with diabetic chronic kidney disease; E86.0 Dehydration; I48.0 Paroxysmal atrial fibrillation; E66.01 Morbid (severe) obesity due to excess calories; E11.65 Type 2 diabetes mellitus with hyperglycemia; N18.30 Chronic kidney disease, stage 3 unspecified; R19.7 Diarrhea, unspecified; E03.9 Hypothyroidism, unspecified; I12.9 Hypertensive chronic kidney disease with stage 1 through stage 4 chronic kidney disease, or unspecified chronic kidney disease; E78.5 Hyperlipidemia, unspecified; G47.33 Obstructive sleep apnea (adult) (pediatric); E87.6 Hypokalemia; B34.9 Viral infection, unspecified; Z20.822 Contact with and (suspected) exposure to COVID-19; Z79.84 Long term (current) use of oral hypoglycemic drugs; Z79.82 Long term (current) use of aspirin; Z79.899 Other long term (current) drug therapy; Z86.73 Personal history of transient ischemic attack (TIA), and cerebral infarction without residual deficits
CPT/HCPCS: 36415; 71045; 80048; 80053; 80202; 81001; 82962; 85025; 87040; 87426; 87428; 87493; 87506; 94762; 97110; 97116; 97162; 97166; 97530; 97535; 97802; 97803; 99285; J7030; J7040; J7050; A4216

== ENCOUNTER 2022-03-06 16:11 | Inpatient (IN) | payer MEDICARE, SELFPAY ==
[2022-03-06 16:17] VITALS: BP 140/63; PULSE 99; RESP 16; TEMP 36.9; O2SAT 96; BMI 43.7
[2022-03-06 17:05] LABS: Bedside Glucose 191 mg/dL (74-106)
[2022-03-06 18:34] VITALS: PULSE 99; RESP 16; O2SAT 96
--- NOTE | 2022-03-06 20:05 | HP.PCM_ITS ---
HPI - General General Date of Admission: 03/06/22 Date of Service: 03/06/22 Chief Complaint: Here for rehabilitation. HPI Narrative 02/27/2022 CATHERINE STOVER, is a 76 Female who presents to [facility] Emergency Department with hypoglycemia. Sick, nausea, vomiting, diarrhea x 1 week, not eating. Glucose 39, change in mental status, weak, cough. Hypoglycemia treated with IV dextrose. WBC 6.1, K 3.4, BUN 82, Creatinine 1.98. Urinalysis contaminated. 02/27/2022 Admit to Hospital. D51/2NS with potassium for hypoglycemia. Enteric panel, C. Diff for diarrhea. 02/28/2022 Hypotensive, not responding to IV Fluids, transfer to ICU. Levophed, blood cultures, IV antibiotics for shock. 03/01/2022 Feels better, diarrhea x 1, IV antibiotics, fever 99.2, oxygen 3 liters per nasal cannula. Vancomycin, Zosyn IV. K 4.1, Creatinine 1.39. 03/02/2022 Feels much better. Shock secondary to hypovolemia from diarrhea. Vancomycin, Zosyn IV. 03/03/2022 Blood cultures negative, stop Vancomycin, stop Zosyn. Diarrhea resolved. Enteric panel negative, C. Diff negative. 03/04/2022 PT/OT for SNF. 03/05/2022 Hypovolemia resolved. Diarrhea resolved. Hypoglycemia resolved. Hypokalemia resolved. Acute kidney injury resolved. 03/06/2022 Admit to TCU with debility, here for rehabilitation, strengthening, prior to discharge home alone. [facility] Medical History Acute ischemic left middle cerebral artery (MCA) stroke Anemia Aphasia Arthritis BPPV (benign paroxysmal positional vertigo) Cardiology follow-up encounter Cerebrovascular accident involving cerebellum CKD (chronic kidney disease), stage III Closed fracture of left hip requiring operative repair Depression Diabetes mellitus, type II Diabetic nephropathy Dietary restriction DVT (deep venous thrombosis) Dysarthria Dysmetabolic syndrome X Easy bruising Essential hypertension GERD (gastroesophageal reflux disease) Grade II diastolic dysfunction History of DVT (deep vein thrombosis) History of echocardiogram History of hip fracture HLD (hyperlipidemia) Hypothyroid Hypoxia Intertrigo Iron deficiency Left atrial enlargement Morbid obesity with BMI of 40.0-44.9, adult Non-smoker Normochromic normocytic anemia Occlusion of right vertebral artery On home oxygen therapy Physical debility Proteinuria Seasonal allergies Sleep apnea Sleep-disordered breathing Urinary tract infection Walker as ambulation aid Wears glasses Home Medications multivitamin 1 ea PO DAILY supplement 09/08/16 [History Last Taken 06/15/19] sitagliptin phosphate 50 mg tablet (Januvia) 50 mg PO DAILY diabetes 06/16/19 [History Last Taken 06/15/19] fish oil-dha-epa 1,200 mg-144 mg-216 mg capsule 1,200 cap PO DAILY Supplement 09/01/19 [History Last Taken Unknown] fluticasone propionate 50 mcg/actuation nasal spray,suspension (Allergy Relief (fluticasone)) 2 spray intranasal DAILY Allergy Relief 09/01/19 [History Last Taken 12/22/21] atenolol 50 mg tablet 25 mg PO QHS Blood Pressure 09/17/20 [History Last Taken Unknown] atorvastatin 40 mg tablet 40 mg PO QHS Cholesterol 09/17/20 [History Last Taken Unknown] losartan 100 mg tablet 100 mg PO DAILY Blood Pressure 09/17/20 [History Last Taken 12/22/21] magnesium oxide 400 mg (241.3 mg magnesium) tablet 400 mg PO DAILYCM Supplement 09/17/20 [History Last Taken Unknown] nifedipine 30 mg tablet,extended release 24 hr 30 mg PO DAILY Blood Pressure 09/17/20 [History Last Taken 12/22/21] nystatin 100,000 unit/gram topical powder ([facility]) 1 applic topical BID Redness 09/17/20 [History Last Taken Unknown] sertraline 50 mg tablet 50 mg PO DAILY Mood 09/17/20 [History Last Taken Unknown] esomeprazole magnesium 20 mg capsule,delayed release (Nexium) 20 mg PO DAILY GERD 03/10/21 [History Last Taken Unknown] levothyroxine 25 mcg tablet 125 mcg PO DAILY Thyroid 03/10/21 [History Last Taken 12/22/21] ondansetron 4 mg disintegrating tablet 4 mg PO Q8H PRN nausea and vomiting #14 tabs 12/22/21 [Rx Last Taken Unknown] oxycodone 5 mg capsule 5 mg PO Q6H PRN pain 7 days #28 caps 12/22/21 [Rx Last Taken Unknown] aspirin 81 mg tablet,delayed release 81 mg PO BREAKFAST Heart health 03/06/22 [History Last Taken Unknown] Allergy/AdvReac Type Severity Reaction Status Date / Time adhesive tape Allergy Intermediate Unknown Verified 12/22/21 10:44 Sulfa (Sulfonamide Allergy Rash Verified 12/22/21 10:44 Antibiotics) lisinopril AdvReac cough Verified 12/22/21 10:44 Family History Grandfather Alcoholism Mother Angina at rest Arthritis Diabetes Myocardial infarction, Onset Age: 40 another @70 Heart disease Hypertension Sister Arthritis Bleeding disorder Blood clots Non Hodgkin's lymphoma Kidney cysts Osteoporosis Thyroid disorder Surgical History History of cataract extraction Social History household members: none Smoking Status: Never smoker alcohol intake: former details: Social substance use type: does not use ROS Constitutional Constitutional: Denies chills, fever(s) or weight gain ENT HEENT: Denies headache(s), nasal congestion or nasal discharge Cardiovascular Cardiovascular: Denies chest pain or palpitations Respiratory/Chest Respiratory/Chest: Denies cough, excessive phlegm production or shortness of breath with exertion Gastrointestinal Gastrointestinal: Denies abdominal pain, nausea or vomiting Genitourinary Genitourinary: Denies dysuria Musculoskeletal Musculoskeletal: Denies joint pain or joint swelling Integumentary Integumentary: Denies rash or wounds Neurologic Neurologic: Denies focal weakness, numbness or tingling Psychiatric Psychiatric: Denies anxiety, auditory hallucinations, depression, homicidal ideation or suicidal ideation Vital Signs Vital Signs Vital Signs: 03/06/22 16:17 03/06/22 18:34 Temperature 98.4 F Temperature Source Temporal Pulse Rate 99 99 Pulse Rhythm Regular Pulse Strength Normal (2+) Respiratory Rate 16 16 Respiratory Effort Normal Respiratory Depth Normal Respiratory Pattern Normal Blood Pressure 140/63 H Blood Pressure Mean 88 Blood Pressure Source Monitor Blood Pressure Position Sitting Blood Pressure Location Left Arm Pulse Ox 96 96 Oxygen Delivery Method Room Air Room Air Weight Weight: 101.718 kg Body Mass Index (BMI) 43.7 Physical Exam Const alert General Appearance: cooperative HEENT normocephalic Eyes PERRL and EOMs intact bilaterally Neck supple, no JVD and no carotid bruits Resp normal respiratory effort, normal air movement and clear to auscultation bilaterally Cardio regular rate and regular rhythm GI normal to inspection, nondistended, normoactive bowel sounds, non-tender and non-distended Extremity normal capillary refill General Extremity: Negative for edema Skin no rashes or lesions noted General Skin Exam: no breakdown Psych affect normal Appearance: appropriate Results Lab / Micro Data Labs: Laboratory Results - last 24 hr 03/06/22 16:44: POC Glucose 191 H Assessment & Plan Assessment/Plan (1) Debility: (2) Hypoglycemia: (3) Hypovolemic shock: (4) Diarrhea: (5) Hypokalemia: (6) Acute kidney injury: (7) Diabetes mellitus: (8) Stroke: (9) Hypertension: (10) Hyperlipidemia: (11) Hypomagnesemia: (12) Depression: (13) GERD (gastroesophageal reflux disease): (14) Hypothyroidism: PLAN: Plan 76 year old female with below past medical history hospitalized for persistent hypoglycemia, hypovolemic shock secondary to diarrhea, complicated acute kidney injury, dehydration, hypokalemia, admitted to TCU with debility, here for rehabilitation, strengthening, prior to discharge home alone. * Debility - PT/OT. * Pain - Tylenol 1000mg q6h prn pain (1-5), Oxycodone 5mg q4h prn pain (6-10). * Bowel - Senna/colace 1 tablet bid, MOM 30ml daily prn, Dulcolax 10mg pr daily prn. * Adult immunization - Administer pneumonia vaccine, covid19 vaccine, flu vaccine as appropriate. * DVT prophylaxis - Hold, anemia. * Stroke - Aspirin 81mg daily. * Hypertension - Atenolol 25mg qhs, Nifedipine 30mg daily, Losartan 100mg daily. * Hyperlipidemia - Atorvastatin 40mg qhs, [place]-3 1gm daily. * Allergic rhinitis - Flonase 2 sprays nasal daily. * Hypothyroidism - Levothyroxine 125mcg daily. * Diabetes Mellitus II - Tradjenta 5mg daily. * Hypomagnesemia - Magnesium chloride 128mg daily. * Skin irritation - Calmoseptine topical bid. * Nutrition - MVI daily. * Tinea Corporis - Nystatin powder topical bid. * Nausea - Zofran odt 4mg q8h prn.
[2022-03-06] MEDS: Atenolol 25 MG Tablet PO (20:19)
[2022-03-06] MEDS: Atorvastatin Calcium 40 MG Tablet PO (20:19)
[2022-03-06] MEDS: Menthol/Lanolin/Calamine/Znox 113 GM Tube 1 APPLIC TOPICAL (20:24)
[2022-03-06] MEDS: Nystatin Powder 15gm Bottle 1 APPLIC TOPICAL (20:24)
[2022-03-06 20:26] VITALS: BP 123/55; PULSE 93
[2022-03-06] MEDS: Senna/Docusate Sodium 1 Tablet PO (21:45)
[2022-03-06 22:06] LABS: Bedside Glucose 186 mg/dL (74-106)
[2022-03-07] MEDS: Fluticasone 0.05% 1 SPRAY NASAL.SRY 2 SPRAY NASAL (04:26)
[2022-03-07] MEDS: Levothyroxine 125 MCG Tablet PO (04:27)
[2022-03-07] MEDS: Omega-3 Acid Ethyl Esters 1 GM Capsule PO (04:28)
[2022-03-07] MEDS: Pantoprazole Sodium 20 MG Tablet PO (04:28)
[2022-03-07] MEDS: NIFEdipine 30 MG Tablet PO (04:28)
[2022-03-07] MEDS: Sertraline 50 MG Tablet PO (04:28)
[2022-03-07] MEDS: Losartan Potassium 100 MG Tablet PO (04:28)
[2022-03-07] MEDS: LINAGLIPTIN 5 MG TABLET PO (04:28)
[2022-03-07] MEDS: Nystatin Powder 15gm Bottle 1 APPLIC TOPICAL ×2 (04:30→21:26)
[2022-03-07] MEDS: Menthol/Lanolin/Calamine/Znox 113 GM Tube 1 APPLIC TOPICAL ×2 (04:31→21:26)
[2022-03-07] MEDS: Senna/Docusate Sodium 1 Tablet PO (04:33)
[2022-03-07 05:43] LABS: Absolute Neutrophil Count 7.6 X10^3/uL (2.0-7.7); Basophil# 0.02 X10^3/uL; Basophil% 0.2 % (0-1); Eosinophil# 0.25 X10^3/uL; Eosinophils% 2.3 % (0-5); Hematocrit 25.8 % (37-47); Hemoglobin 8.1 g/dL (12.0-15.0); Lymphocyte % 15.9 % (19-41); Mean Corp Hgb Conc 31.4 g/dL (32-36); Mean Corpuscular Hgb 29.3 pg (27.0-32.0); Mean Corpuscular Volume 93.5 fL (81-99); Mean Platelet Vol. 9.6 fl (6.2-12.0); Monocyte# 0.86 X10^3/uL; Monocyte% 8.1 % (0-10); NRBC Flagged by Analyzer 0 % (0-5); Neutrophil # 7.64 X10^3/uL (2.7-7.7); Neutrophil % 71.7 % (47-70); Platelet Count 269 K/mm3 (150-450); RBC Distribution Width CV 13.9 % (11.6-14.6); RBC Distribution Width SD 46.6 fl (35.1-43.9); Red Blood Count 2.76 M/mm3 (4.2-5.4); White Blood Count 10.7 K/mm3 (4.4-11.0)
[2022-03-07 06:08] LABS: Anion Gap 5 (5-15); BUN 19 mg/dL (7-18); BUN/Creat Ratio 19.8 RATIO (10-20); Calcium,Total 8.1 mg/dL (8.5-10.1); Chloride 109 mmol/L (98-107); Creatinine, Serum 0.96 mg/dL (0.55-1.02); EST Glomerular Filtration Rate 60 mL/min (>60); Est Glom Filt Rate - Afr Amer 72 mL/min (>60); Estimated Creatinine Clearance 35.25 ml/min; Glucose 152 mg/dL (74-106); Potassium 4.1 mmol/L (3.5-5.1); Sodium Level 139 mmol/L (136-145)
[2022-03-07 06:36] LABS: Bedside Glucose 141 mg/dL (74-106)
[2022-03-07] MEDS: 0.9% Saline Lock 10 ML Syringe IV (09:01)
[2022-03-07] MEDS: Multivitamins,Therapeutic Tablet 1 TABLET PO (09:02)
[2022-03-07] MEDS: Aspirin E.C. 81 MG Tablet PO (09:02)
[2022-03-07] MEDS: Magnesium Chloride 64 MG Delay Rel.Tablet 128 MG PO (09:02)
--- NOTE | 2022-03-07 10:39 | PCM.PN.DRR ---
TCU RX Drug Regimen Review Subjective: TCU Admission. 76 YOF presented to the ER with hypoglycemia. Hospitalized for persistent hypoglycemia, hypovolemic shock secondary to diarrhea, complicated acute kidney injury, dehydration, hypokalemia. Admitted to TCU with debility for strengthening and rehabilitation. Objective: Allergies adhesive tape Allergy (Intermediate, Verified 12/22/21 10:44) Unknown if adhesive is in contact for adjunct faculty for medical terminology Sulfa (Sulfonamide Antibiotics) Allergy (Verified 12/22/21 10:44) Rash lisinopril Adverse Reaction (Verified 12/22/21 10:44) cough Current Medications Generic Name Dose Route Start Last Admin Trade Name Freq PRN Reason Stop Dose Admin Acetaminophen 1,000 mg 03/06/22 20:23 Acetaminophen 500 Mg Tablet PO Q6H PRN PRN Pain Score 1-5 Aspirin 81 mg 03/07/22 08:00 03/07/22 09:02 Aspirin E.C. 81 Mg Tablet PO 81 mg BREAKFAST DEANN Administration Atenolol 25 mg 03/06/22 22:00 03/06/22 20:19 Atenolol 25 Mg Tablet PO 25 mg QHS DEANN Administration Atorvastatin Calcium 40 mg 03/06/22 22:00 03/06/22 20:19 Atorvastatin Calcium 40 Mg Tablet PO 40 mg QHS DEANN Administration Bisacodyl 10 mg 03/06/22 16:55 Bisacodyl 10 Mg Suppository RC DAILY PRN CONSTIPATION Calamine/Phenol 1 applic 03/06/22 22:00 03/07/22 04:31 Menthol/Lanolin/Calamine/Znox 113 Gm Tube TOPICAL 1 applic 0600,2200 DEANN Administration Protocol Fluticasone Propionate 2 spray 03/07/22 06:00 03/07/22 04:26 Fluticasone 0.05% 1 [place] Nasal.Sry NASAL 2 spray DAILY DEANN Administration Influenza Virus Vaccine Quadrival 0.5 ml 03/07/22 11:00 Flu Vacc [id number](6mos Up)/Pf 60 Mcg/0.5 Ml Syringe IM 03/07/22 11:01 .ONCE ONE Levothyroxine Sodium 125 mcg 03/07/22 06:00 03/07/22 04:27 Levothyroxine 125 Mcg Tablet PO 125 mcg DAILY DEANN Administration Linagliptin 5 mg 03/07/22 06:00 03/07/22 04:28 Linagliptin 5 Mg Tablet PO 5 mg DAILY DEANN Administration Losartan Potassium 100 mg 03/07/22 06:00 03/07/22 04:28 Losartan Potassium 100 Mg Tablet PO 100 mg DAILY DEANN Administration Magnesium Chloride 128 mg 03/07/22 08:00 03/07/22 09:02 Magnesium Chloride 64 Mg Delay Rel.Tablet PO 128 mg DAILYCM DEANN Administration Magnesium Hydroxide 30 ml 03/06/22 20:23 Magnesium Hydroxide 30 Ml Udc PO DAILY PRN PRN CONSTIPATION Multivitamins 1 tablet 03/07/22 08:00 03/07/22 09:02 Multivitamins,Therapeutic Tablet PO 1 tablet DAILYCM DEANN Administration Nifedipine 30 mg 03/07/22 06:00 12 04:28 Nifedipine 30 Mg Tablet PO 30 mg DAILY DEANN Administration Nystatin 1 applic 03/06/22 22:00 03/07/22 04:30 Nystatin Powder 15gm Bottle TOPICAL 1 applic 0600,2200 DEANN Administration Protocol [place]-1-Oihs Ethyl Esters 1 gm 03/07/22 06:00 03/07/22 04:28 [place]-3 Acid Ethyl Esters 1 Gm Capsule PO 1 gm DAILY DEANN Administration Ondansetron HCl 4 mg 03/06/22 16:24 Ondansetron Odt 4 Mg Tablet PO Q8H PRN nausea and vomiting Oxycodone HCl 5 mg 03/06/22 20:24 Oxycodone 5 Mg Tablet PO Q4H PRN PRN Pain Score 6-10 Pantoprazole Sodium 20 mg 03/07/22 06:00 03/07/22 04:28 Pantoprazole Sodium 20 Mg Tablet PO 20 mg DAILY DEANN Administration Senna/Docusate Sodium 1 tablet 03/06/22 20:30 03/07/22 04:33 Senna/Docusate Sodium 1 Tablet PO 1 tablet BID DEANN Administration Sertraline HCl 50 mg 03/07/22 06:00 03/07/22 04:28 Sertraline 50 Mg Tablet PO 50 mg DAILY DEANN Administration Sodium Chloride 10 - 40 ml 03/06/22 16:36 03/07/22 09:01 0.9% Saline Lock 10 Ml Syringe IV 10 ml UD PRN Administration SALINE FLUSH Tuberculin PPD 0.1 ml 03/14/22 10:00 Tuberculin,Purif.Prot.Deriv. 50 Tu/Ml Vial ID 03/14/22 10:01 X1 ONE Problem List (Last Reviewed 03/06/22 @ 20:[address] Noe Wong MD) Hypothyroidism (Acute) GERD (gastroesophageal reflux disease) (Acute) Depression (Acute) Hypomagnesemia (Acute) Hyperlipidemia (Acute) Hypertension (Chronic) Stroke (Acute) Diabetes mellitus (Acute) Acute kidney injury (Acute) Hypokalemia (Acute) Diarrhea (Acute) Hypovolemic shock (Acute) Hypoglycemia (Acute) Debility (Acute) Vital Signs Temp Pulse Resp BP Pulse Ox O2 Del Method 98.4 F 93 16 123/55 H 96 Room Air 03/06/22 16:17 03/06/22 20:26 03/06/22 18:34 03/06/22 20:26 03/06/22 18:34 03/06/22 18:34 Oxygen Delivery Method Room Air Weight: 100.425 kg Body Mass Index (BMI) 43.7 Sodium 139 mmol/L (136-145) 03/07/22 05:17 Potassium 4.1 mmol/L (3.5-5.1) 03/07/22 05:17 Chloride 109 mmol/L (98-107) H 03/07/22 05:17 Carbon Dioxide 25.0 mmol/L (21.0-32.0) 03/07/22 05:17 Anion Gap 5 (5-15) 03/07/22 05:17 BUN 19 mg/dL (7-18) H 03/07/22 05:17 Creatinine 0.96 mg/dL (0.55-1.02) 03/07/22 05:17 Est GFR (MDRD) Af Amer 72 mL/min (>60) 03/07/22 05:17 Est GFR (MDRD) Non-Af 60 mL/min (>60) 03/07/22 05:17 BUN/Creatinine Ratio 19.8 RATIO (10-20) 03/07/22 05:17 Glucose 152 mg/dL (74-106) H 03/07/22 05:17 Assessment/Plan: 1. Pain: acetaminophen 1000mg PO Q6H PRN pain 1-5 and oxycodone 5mg PO Q4H PRN pain 6-10. Resident has not received any doses. Please continue to monitor for increased pain and PRN usage. 2. Bowel: senna/docusate 1T PO BID, MOM 30mL PO daily PRN constipation and bisacodyl 10mg RC daily PRN constipation. Last documented bowel movement was 03/05. Please continue to monitor for constipation and PRN usage (no doses so far). 3. Stroke: aspirin 81mg PO daily. Please continue to monitor for S/S of bleeding/stroke and hemoglobin (last 8.1g/dL). 4. Hypertension: atenolol 25mg PO QHS, nifedipine 30mg PO daily and losartan 100mg PO daily. Please continue to monitor BP (last 123/55), HR (last 93), renal function and potassium (last 4.2mmol/L). 5. Hyperlipidemia: atorvastatin 40mg PO QHS and omega-3 1gm PO daily. Please consider ordering a lipid panel if clinically appropriate. Last lipid panel from 10/2019. Thanks. Please continue to monitor LFTs (last 02/25/22) and muscle pain. 6. Hypothyroidism: levothyroxine 125mcg PO daily. Please consider ordering a TSH if clinically appropriate. Last TSH from 09/13/20. Thanks. Please continue to monitor for S/S of hypo/hyperthyroidism. 7. Diabetes Mellitus: linagliptin 5mg PO daily. Please consider ordering a hemoglobin A1c if clinically appropriate. Last A1c from 09/13/20. Thanks. Please continue to monitor for S/S of hypoglycemia and glucose (last 141mg/dL). 8. Allergic rhinitis: fluticasone 0.05% 2 sprays nasally once daily. Please continue to monitor for S/S of allergies and nosebleed. 9. Nausea: ondansetron 4mg PO Q8H PRN nausea and vomiting. Resident has not used any doses so far. Please continue to monitor for nausea and PRN usage. 10. Hypomagnesemia/nutrition: magnesium chloride 128mg PO daily and multivitamin 1T PO daily. Please consider ordering a magnesium level (last level from 09/13/20). Thanks. Assessment/Plan for indications treated with psychotropic medications: None Medical chart and medication regimen reviewed. The following medication irregularities or issues were identified: *1. Atorvastatin 40mg PO QHS and omega-3 1gm PO daily. Please consider ordering a lipid panel if clinically appropriate. Last lipid panel from 10/2019. Thanks. *2. Levothyroxine 125mcg PO daily. Please consider ordering a TSH if clinically appropriate. Last TSH from 09/13/20. Thanks. *3. Linagliptin 5mg PO daily. Please consider ordering a hemoglobin A1c if clinically appropriate. Last A1c from 09/13/20. Thanks. Date of Note:: 03/07/22
[2022-03-07] MEDS: Tuberculin,Purif.prot.deriv. 50 TU/ML Vial 0.1 ML ID (11:58)
[2022-03-07] MEDS: FLU VACC QS2022-23(6MOS UP)/PF 60 MCG/0.5 ML SYRINGE IM (12:02)
[2022-03-07 14:00] VITALS: PULSE 69; RESP 16; TEMP 36.8; O2SAT 96
[2022-03-07 14:35] VITALS: PULSE 68; RESP 18; O2SAT 92
[2022-03-07 16:34] VITALS: BP 100/50
[2022-03-07] MEDS: Atorvastatin Calcium 40 MG Tablet PO (21:26)
[2022-03-07] MEDS: Atenolol 25 MG Tablet PO (21:27)
[2022-03-07 21:28] VITALS: BP 111/44; PULSE 78
[2022-03-08] MEDS: Menthol/Lanolin/Calamine/Znox 113 GM Tube 1 APPLIC TOPICAL ×2 (05:10→20:12)
[2022-03-08] MEDS: NIFEdipine 30 MG Tablet PO (05:15)
[2022-03-08] MEDS: Levothyroxine 125 MCG Tablet PO (05:15)
[2022-03-08] MEDS: LINAGLIPTIN 5 MG TABLET PO (05:15)
[2022-03-08] MEDS: Fluticasone 0.05% 1 SPRAY NASAL.SRY 2 SPRAY NASAL (05:16)
[2022-03-08] MEDS: Nystatin Powder 15gm Bottle 1 APPLIC TOPICAL ×2 (05:16→20:12)
[2022-03-08] MEDS: Pantoprazole Sodium 20 MG Tablet PO (05:16)
[2022-03-08] MEDS: Losartan Potassium 100 MG Tablet PO (05:16)
[2022-03-08] MEDS: Omega-3 Acid Ethyl Esters 1 GM Capsule PO (05:16)
[2022-03-08] MEDS: Sertraline 50 MG Tablet PO (05:17)
[2022-03-08 05:48] LABS: Hematocrit 26.4 % (37-47); Hemoglobin 8.4 g/dL (12.0-15.0)
[2022-03-08 06:36] LABS: Bedside Glucose 117 mg/dL (74-106)
[2022-03-08] MEDS: Multivitamins,Therapeutic Tablet 1 TABLET PO (08:06)
[2022-03-08] MEDS: Magnesium Chloride 64 MG Delay Rel.Tablet 128 MG PO (08:06)
[2022-03-08] MEDS: Aspirin E.C. 81 MG Tablet PO (08:06)
--- NOTE | 2022-03-08 08:56 | CASEMGMT ---
Social Work Met with patient to complete initial assessment. Pt known to this worker from previous visit. Confirmed no changes to code status, MOLST, assessment. Educated to [facility] and Home insurance with NRD 03/08 and continued stay is not guaranteed with each review. Pt receives MOW and services from [facility]. Secure email sent to [facility] to notify of admission. SW to continue to follow for DC planning. Keren Rivera, [employer] COMPLIANCE AND CONTROL ANALYST
--- NOTE | 2022-03-08 11:54 | NURSING ---
Rehabilitation Director Note; Activity Asset: Complete
[2022-03-08 14:00] VITALS: BP 123/52; PULSE 63; RESP 16; TEMP 36; O2SAT 93
[2022-03-08] MEDS: 0.9% Saline Lock 10 ML Syringe IV (19:18)
[2022-03-08 20:04] VITALS: PULSE 63; RESP 16
[2022-03-08] MEDS: Atenolol 25 MG Tablet PO (20:12)
[2022-03-08] MEDS: Atorvastatin Calcium 40 MG Tablet PO (20:12)
[2022-03-08 20:17] VITALS: BP 124/47; PULSE 63; RESP 18; TEMP 36.4
[2022-03-09] MEDS: Menthol/Lanolin/Calamine/Znox 113 GM Tube 1 APPLIC TOPICAL ×2 (04:50→21:39)
[2022-03-09] MEDS: Omega-3 Acid Ethyl Esters 1 GM Capsule PO (04:51)
[2022-03-09] MEDS: Pantoprazole Sodium 20 MG Tablet PO (04:51)
[2022-03-09] MEDS: Sertraline 50 MG Tablet PO (04:51)
[2022-03-09] MEDS: Losartan Potassium 100 MG Tablet PO (04:51)
[2022-03-09] MEDS: Levothyroxine 125 MCG Tablet PO (04:51)
[2022-03-09] MEDS: Fluticasone 0.05% 1 SPRAY NASAL.SRY 2 SPRAY NASAL (04:52)
[2022-03-09] MEDS: NIFEdipine 30 MG Tablet PO (04:54)
[2022-03-09] MEDS: 0.9% Saline Lock 10 ML Syringe IV ×2 (04:55→21:43)
[2022-03-09] MEDS: Nystatin Powder 15gm Bottle 1 APPLIC TOPICAL ×2 (04:55→21:38)
[2022-03-09 06:50] LABS: Bedside Glucose 128 mg/dL (74-106)
[2022-03-09] MEDS: Aspirin E.C. 81 MG Tablet PO (07:57)
[2022-03-09] MEDS: Multivitamins,Therapeutic Tablet 1 TABLET PO (07:57)
[2022-03-09] MEDS: LINAGLIPTIN 5 MG TABLET PO (07:57)
[2022-03-09] MEDS: Magnesium Chloride 64 MG Delay Rel.Tablet 128 MG PO (07:57)
[2022-03-09 15:34] VITALS: BP 110/49; PULSE 60; RESP 18; TEMP 36.4; O2SAT 92
[2022-03-09] MEDS: Atenolol 25 MG Tablet PO (21:37)
[2022-03-09] MEDS: Atorvastatin Calcium 40 MG Tablet PO (21:38)
[2022-03-10] MEDS: Menthol/Lanolin/Calamine/Znox 113 GM Tube 1 APPLIC TOPICAL ×2 (06:40→21:21)
[2022-03-10] MEDS: Fluticasone 0.05% 1 SPRAY NASAL.SRY 2 SPRAY NASAL (06:41)
[2022-03-10] MEDS: Sertraline 50 MG Tablet PO (06:42)
[2022-03-10] MEDS: NIFEdipine 30 MG Tablet PO (06:42)
[2022-03-10] MEDS: Levothyroxine 125 MCG Tablet PO (06:42)
[2022-03-10] MEDS: Omega-3 Acid Ethyl Esters 1 GM Capsule PO (06:43)
[2022-03-10] MEDS: Losartan Potassium 100 MG Tablet PO (06:43)
[2022-03-10] MEDS: Nystatin Powder 15gm Bottle 1 APPLIC TOPICAL ×2 (06:44→21:27)
[2022-03-10 06:45] LABS: Bedside Glucose 136 mg/dL (74-106)
[2022-03-10] MEDS: Pantoprazole Sodium 20 MG Tablet PO (06:52)
[2022-03-10] MEDS: Magnesium Chloride 64 MG Delay Rel.Tablet 128 MG PO (08:05)
[2022-03-10] MEDS: LINAGLIPTIN 5 MG TABLET PO (08:05)
[2022-03-10] MEDS: Multivitamins,Therapeutic Tablet 1 TABLET PO (08:05)
[2022-03-10] MEDS: Aspirin E.C. 81 MG Tablet PO (08:06)
--- NOTE | 2022-03-10 12:03 | CASEMGMT ---
Social Work BIMS () and PHQ-9 (06/26) completed for MDS assessment. Keren Rivera MSW [employer] WORKER
[2022-03-10 14:00] VITALS: BP 126/56; PULSE 65; RESP 16; TEMP 36.3; O2SAT 95
[2022-03-10 21:18] VITALS: BP 116/53; PULSE 73
[2022-03-10] MEDS: Atenolol 25 MG Tablet PO (21:20)
[2022-03-10] MEDS: Atorvastatin Calcium 40 MG Tablet PO (21:20)
[2022-03-11 06:40] LABS: Bedside Glucose 161 mg/dL (74-106)
[2022-03-11] MEDS: Pantoprazole Sodium 20 MG Tablet PO (06:42)
[2022-03-11] MEDS: Senna/Docusate Sodium 1 Tablet PO (06:42)
[2022-03-11] MEDS: Sertraline 50 MG Tablet PO (06:42)
[2022-03-11] MEDS: Levothyroxine 125 MCG Tablet PO (06:42)
[2022-03-11] MEDS: Losartan Potassium 100 MG Tablet PO (06:42)
[2022-03-11] MEDS: Nystatin Powder 15gm Bottle 1 APPLIC TOPICAL ×2 (06:42→20:42)
[2022-03-11] MEDS: NIFEdipine 30 MG Tablet PO (06:42)
[2022-03-11] MEDS: Fluticasone 0.05% 1 SPRAY NASAL.SRY 2 SPRAY NASAL (06:42)
[2022-03-11] MEDS: Menthol/Lanolin/Calamine/Znox 113 GM Tube 1 APPLIC TOPICAL ×2 (06:43→20:42)
[2022-03-11 06:50] VITALS: BP 132/44; PULSE 70
[2022-03-11] MEDS: Aspirin E.C. 81 MG Tablet PO (07:55)
[2022-03-11] MEDS: Multivitamins,Therapeutic Tablet 1 TABLET PO (07:55)
[2022-03-11] MEDS: Omega-3 Acid Ethyl Esters 1 GM Capsule PO (07:55)
[2022-03-11] MEDS: Magnesium Chloride 64 MG Delay Rel.Tablet 128 MG PO (07:55)
[2022-03-11] MEDS: LINAGLIPTIN 5 MG TABLET PO (07:56)
[2022-03-11 13:36] VITALS: BP 117/59; PULSE 69; RESP 16; TEMP 36.3; O2SAT 94
[2022-03-11] MEDS: 0.9% Saline Lock 10 ML Syringe IV (16:53)
[2022-03-11] MEDS: Atorvastatin Calcium 40 MG Tablet PO (20:43)
[2022-03-11] MEDS: Atenolol 25 MG Tablet PO (20:43)
[2022-03-12] MEDS: Pantoprazole Sodium 20 MG Tablet PO (06:22)
[2022-03-12] MEDS: NIFEdipine 30 MG Tablet PO (06:23)
[2022-03-12] MEDS: Losartan Potassium 100 MG Tablet PO (06:24)
[2022-03-12] MEDS: Levothyroxine 125 MCG Tablet PO (06:24)
[2022-03-12] MEDS: Sertraline 50 MG Tablet PO (06:24)
[2022-03-12] MEDS: Senna/Docusate Sodium 1 Tablet PO (06:24)
[2022-03-12] MEDS: Menthol/Lanolin/Calamine/Znox 113 GM Tube 1 APPLIC TOPICAL ×2 (06:25→20:43)
[2022-03-12] MEDS: Nystatin Powder 15gm Bottle 1 APPLIC TOPICAL ×2 (06:25→20:40)
[2022-03-12] MEDS: Fluticasone 0.05% 1 SPRAY NASAL.SRY 2 SPRAY NASAL (06:25)
[2022-03-12 06:46] LABS: Bedside Glucose 132 mg/dL (74-106)
[2022-03-12] MEDS: Aspirin E.C. 81 MG Tablet PO (09:47)
[2022-03-12] MEDS: Multivitamins,Therapeutic Tablet 1 TABLET PO (09:47)
[2022-03-12] MEDS: Magnesium Chloride 64 MG Delay Rel.Tablet 128 MG PO (09:47)
[2022-03-12] MEDS: Omega-3 Acid Ethyl Esters 1 GM Capsule PO (09:47)
[2022-03-12] MEDS: LINAGLIPTIN 5 MG TABLET PO (09:48)
[2022-03-12 14:00] VITALS: BP 104/47; PULSE 62; RESP 20; TEMP 36.6; O2SAT 93
[2022-03-12] MEDS: 0.9% Saline Lock 10 ML Syringe IV (18:39)
[2022-03-12] MEDS: Atenolol 25 MG Tablet PO (20:39)
[2022-03-12] MEDS: Atorvastatin Calcium 40 MG Tablet PO (20:39)
[2022-03-12 22:00] VITALS: O2SAT 96
[2022-03-13] MEDS: Sertraline 50 MG Tablet PO (05:15)
[2022-03-13] MEDS: Levothyroxine 125 MCG Tablet PO (05:15)
[2022-03-13] MEDS: Pantoprazole Sodium 20 MG Tablet PO (05:16)
[2022-03-13] MEDS: Losartan Potassium 100 MG Tablet PO (05:16)
[2022-03-13] MEDS: Senna/Docusate Sodium 1 Tablet PO (05:16)
[2022-03-13] MEDS: NIFEdipine 30 MG Tablet PO (05:16)
[2022-03-13] MEDS: Fluticasone 0.05% 1 SPRAY NASAL.SRY 2 SPRAY NASAL (05:17)
[2022-03-13] MEDS: Nystatin Powder 15gm Bottle 1 APPLIC TOPICAL ×2 (05:22→22:08)
[2022-03-13] MEDS: Menthol/Lanolin/Calamine/Znox 113 GM Tube 1 APPLIC TOPICAL ×2 (05:22→22:08)
[2022-03-13 06:50] LABS: Bedside Glucose 123 mg/dL (74-106)
[2022-03-13] MEDS: Aspirin E.C. 81 MG Tablet PO (08:12)
[2022-03-13] MEDS: Omega-3 Acid Ethyl Esters 1 GM Capsule PO (08:12)
[2022-03-13] MEDS: Magnesium Chloride 64 MG Delay Rel.Tablet 128 MG PO (08:12)
[2022-03-13] MEDS: Multivitamins,Therapeutic Tablet 1 TABLET PO (08:12)
[2022-03-13] MEDS: LINAGLIPTIN 5 MG TABLET PO (08:13)
--- NOTE | 2022-03-13 09:15 | NURSING ---
Thoracic Medicine Physician Note; MDS Complete
[2022-03-13 13:33] VITALS: BP 129/58; PULSE 68; RESP 16; TEMP 36.6; O2SAT 95
[2022-03-13 22:08] VITALS: PULSE 71; RESP 16; O2SAT 89
[2022-03-13] MEDS: Atorvastatin Calcium 40 MG Tablet PO (22:09)
[2022-03-13] MEDS: Atenolol 25 MG Tablet PO (22:10)
[2022-03-14] MEDS: Losartan Potassium 100 MG Tablet PO (05:38)
[2022-03-14] MEDS: Levothyroxine 125 MCG Tablet PO (05:38)
[2022-03-14] MEDS: Senna/Docusate Sodium 1 Tablet PO (05:38)
[2022-03-14] MEDS: NIFEdipine 30 MG Tablet PO (05:38)
[2022-03-14] MEDS: Fluticasone 0.05% 1 SPRAY NASAL.SRY 2 SPRAY NASAL (05:38)
[2022-03-14] MEDS: Sertraline 50 MG Tablet PO (05:38)
[2022-03-14] MEDS: Pantoprazole Sodium 20 MG Tablet PO (05:38)
[2022-03-14] MEDS: Menthol/Lanolin/Calamine/Znox 113 GM Tube 1 APPLIC TOPICAL ×2 (05:39→20:23)
[2022-03-14] MEDS: Nystatin Powder 15gm Bottle 1 APPLIC TOPICAL ×2 (05:39→20:24)
[2022-03-14 05:41] LABS: Absolute Lymphocyte Count 1.41 X10^3/uL (0.83-4.51); Absolute Neutrophil Count 4.9 X10^3/uL (2.0-7.7); Basophil# 0.03 X10^3/uL; Basophil% 0.4 % (0-1); Eosinophil# 0.31 X10^3/uL; Eosinophils% 4.3 % (0-5); Hematocrit 28.7 % (37-47); Hemoglobin 8.9 g/dL (12.0-15.0); Lymphocyte # 1.41 X10^3/ul (0.83-4.51); Lymphocyte % 19.6 % (19-41); Mean Corpuscular Hgb 29.6 pg (27.0-32.0); Mean Corpuscular Volume 95.3 fL (81-99); Mean Platelet Vol. 9.1 fl (6.2-12.0); Monocyte# 0.55 X10^3/uL; Monocyte% 7.7 % (0-10); NRBC Flagged by Analyzer 0 % (0-5); Neutrophil # 4.86 X10^3/uL (2.7-7.7); Neutrophil % 67.7 % (47-70); Platelet Count 413 K/mm3 (150-450); RBC Distribution Width CV 14.6 % (11.6-14.6); RBC Distribution Width SD 49.7 fl (35.1-43.9); Red Blood Count 3.01 M/mm3 (4.2-5.4); White Blood Count 7.2 K/mm3 (4.4-11.0)
[2022-03-14 06:01] LABS: BUN 21 mg/dL (7-18); Creatinine, Serum 1.01 mg/dL (0.55-1.02); EST Glomerular Filtration Rate 56 mL/min (>60); Estimated Creatinine Clearance 33.51 ml/min; Glucose 134 mg/dL (74-106)
[2022-03-14 06:02] LABS: Anion Gap 4 (5-15); BUN/Creat Ratio 20.8 RATIO (10-20); Calcium,Total 8.6 mg/dL (8.5-10.1); Chloride 110 mmol/L (98-107); Est Glom Filt Rate - Afr Amer 68 mL/min (>60); Potassium 4.4 mmol/L (3.5-5.1); Sodium Level 141 mmol/L (136-145)
[2022-03-14 06:40] LABS: Bedside Glucose 126 mg/dL (74-106)
[2022-03-14] MEDS: Magnesium Chloride 64 MG Delay Rel.Tablet 128 MG PO (08:04)
[2022-03-14] MEDS: LINAGLIPTIN 5 MG TABLET PO (08:04)
[2022-03-14] MEDS: Multivitamins,Therapeutic Tablet 1 TABLET PO (08:04)
[2022-03-14] MEDS: Aspirin E.C. 81 MG Tablet PO (08:04)
[2022-03-14] MEDS: Omega-3 Acid Ethyl Esters 1 GM Capsule PO (08:04)
--- NOTE | 2022-03-14 08:30 | NURSING ---
Resident educated on the COVID 19 Vaccine. She does not want to receive a booster at this time.
[2022-03-14] MEDS: Tuberculin,Purif.prot.deriv. 50 TU/ML Vial 0.1 ML ID (09:33)
[2022-03-14 09:35] VITALS: PULSE 65; RESP 18; O2SAT 93
[2022-03-14 15:30] VITALS: BP 126/58; PULSE 67; RESP 16; TEMP 36.6; O2SAT 93
--- NOTE | 2022-03-14 16:40 | CASEMGMT ---
Social Work Insurance issued LCD 03/16, DC 03/17. Spoke with pt in room to update on DC 03/17. Pt ready to DC and reluctant at first for HHC or OP. SW educated to benefits of ongoing therapy. Pt then prefers to have HHC through [facility]. No DME needs. Sister to transport. Phoned referral to [facility] PT/OT Plan: DC home alone with sister assistance 03/17, [facility] PT/OT MITZI LynnW
--- NOTE | 2022-03-14 19:29 | DS.PCM_ITS ---
Providers Date of Admission: 03/06/22 Primary Care Physician: Dr. Flavia Aldrich MD Reason For Visit: HYPOGYCEMIA Diagnosis Discharge Diagnosis (1) Debility: Status: Acute Code(s): R53.81 - Other malaise (2) Hypoglycemia: Status: Acute Code(s): E16.2 - Hypoglycemia, unspecified (3) Hypovolemic shock: Status: Acute Code(s): R57.1 - Hypovolemic shock (4) Diarrhea: Status: Acute Code(s): R19.7 - Diarrhea, unspecified (5) Hypokalemia: Status: Acute Code(s): E87.6 - Hypokalemia (6) Acute kidney injury: Status: Acute Code(s): N17.9 - Acute kidney failure, unspecified (7) Diabetes mellitus: Status: Acute Code(s): E11.9 - Type 2 diabetes mellitus without complications (8) Stroke: Status: Acute Code(s): I63.9 - Cerebral infarction, unspecified (9) Hypertension: Status: Chronic Code(s): I10 - Essential (primary) hypertension (10) Hyperlipidemia: Status: Acute Code(s): E78.5 - Hyperlipidemia, unspecified (11) Hypomagnesemia: Status: Acute Code(s): E83.42 - Hypomagnesemia (12) Depression: Status: Acute Code(s): F32.A - Depression, unspecified (13) GERD (gastroesophageal reflux disease): Status: Acute Code(s): K21.9 - Gastro-esophageal reflux disease without esophagitis (14) Hypothyroidism: Status: Acute Code(s): E03.9 - Hypothyroidism, unspecified Plan 76 year old female with below past medical history hospitalized for persistent hypoglycemia, hypovolemic shock secondary to diarrhea, complicated acute kidney injury, dehydration, hypokalemia, admitted to TCU with debility, here for rehabilitation, strengthening, prior to discharge home alone. * Debility - PT/OT. * Pain - Tylenol 1000mg q6h prn pain (1-5), Oxycodone 5mg q4h prn pain (6-10). * Bowel - Senna/colace 1 tablet bid, MOM 30ml daily prn, Dulcolax 10mg pr daily prn. * Adult immunization - Administer pneumonia vaccine, covid19 vaccine, flu vaccine as appropriate. * DVT prophylaxis - Hold, anemia. * Stroke - Aspirin 81mg daily. * Hypertension - Atenolol 25mg qhs, Nifedipine 30mg daily, Losartan 100mg daily. * Hyperlipidemia - Atorvastatin 40mg qhs, [place]-3 1gm daily. * Allergic rhinitis - Flonase 2 sprays nasal daily. * Hypothyroidism - Levothyroxine 125mcg daily. * Diabetes Mellitus II - Tradjenta 5mg daily. * Hypomagnesemia - Magnesium chloride 128mg daily. * Skin irritation - Calmoseptine topical bid. * Nutrition - MVI daily. * Tinea Corporis - Nystatin powder topical bid. * Nausea - Zofran odt 4mg q8h prn. Medications at Discharge Home Medications multivitamin 1 ea PO DAILY supplement 09/08/16 sitagliptin phosphate 50 mg tablet (Januvia) 50 mg PO DAILY diabetes 06/16/19 fish oil-dha-epa 1,200 mg-144 mg-216 mg capsule 1,200 cap PO DAILY Supplement 09/01/19 fluticasone propionate 50 mcg/actuation nasal spray,suspension (Allergy Relief (fluticasone)) 2 spray intranasal DAILY Allergy Relief 09/01/19 atenolol 50 mg tablet 25 mg PO QHS Blood Pressure 09/17/20 atorvastatin 40 mg tablet 40 mg PO QHS Cholesterol 09/17/20 losartan 100 mg tablet 100 mg PO DAILY Blood Pressure 09/17/20 magnesium oxide 400 mg (241.3 mg magnesium) tablet 400 mg PO DAILYCM Supplement 09/17/20 nifedipine 30 mg tablet,extended release 24 hr 30 mg PO DAILY Blood Pressure 09/17/20 nystatin 100,000 unit/gram topical powder (Nyamyc) 1 applic topical BID Redness 09/17/20 sertraline 50 mg tablet 50 mg PO DAILY Mood 09/17/20 esomeprazole magnesium 20 mg capsule,delayed release (Nexium) 20 mg PO DAILY GERD 03/10/21 levothyroxine 25 mcg tablet 125 mcg PO DAILY Thyroid 03/10/21 ondansetron 4 mg disintegrating tablet 4 mg PO Q8H PRN nausea and vomiting #14 tabs 12/22/21 aspirin 81 mg tablet,delayed release 81 mg PO BREAKFAST Heart health 03/06/22 Hospital Course Operations None Procedures None Summary of Care Provided Minutes Spent on Discharge: 35 Hospital Course: 76 year old female with below past medical history hospitalized for persistent hypoglycemia, hypovolemic shock secondary to diarrhea, complicated acute kidney injury, dehydration, hypokalemia, admitted to TCU with debility, here for rehabilitation, strengthening, prior to discharge home alone. Discharge home alone with sister assistance 03/17/2022, [facility] PT/OT. Physical Exam Const alert General Appearance: cooperative HEENT normocephalic Eyes PERRL and EOMs intact bilaterally Neck supple, no JVD and no carotid bruits Resp normal respiratory effort, normal air movement and clear to auscultation bilaterally Cardio regular rate and regular rhythm GI normal to inspection, nondistended, normoactive bowel sounds, non-tender and non-distended Extremity normal capillary refill General Extremity: Negative for edema Skin no rashes or lesions noted General Skin Exam: no breakdown Psych affect normal Appearance: appropriate Weight / BMI Weight Weight: 99.065 kg Body Mass Index (BMI) 43.7 ABG / Lab / Microbiology Data Result Diagrams: 03/14/22 05:17 03/14/22 05:17 Laboratory: Laboratory Results - last 24 hr 03/14/22 05:17: WBC 7.2, RBC 3.01 L, Hgb 8.9 L, Hct 28.7 L, MCV 95.3, MCH 29.6, MCHC 31.0 L, RDW Std Deviation 49.7 H, RDW Coeff of Umu 14.6, Plt Count 413, MPV 9.1, Immature Gran % (Auto) 0.300, Neut % (Auto) 67.7, Lymph % (Auto) 19.6, [place] % (Auto) 7.7, Eos % (Auto) 4.3, Baso % (Auto) 0.4, Absolute Neuts (auto) 4.9, Absolute Lymphs (auto) 1.41, Nucleated RBC % 0 03/14/22 05:17: Sodium 141, Potassium 4.4, Chloride 110 H, Carbon Dioxide 27.0, Anion Gap 4 L, BUN 21 H, Creatinine 1.01, Estim Creat Clear Calc 33.51, Est GFR (MDRD) Af Amer 68, Est GFR (MDRD) Non-Af 56 L, BUN/Creatinine Ratio 20.8 H, Glucose 134 H, Calcium 8.6 03/14/22 06:20: POC Glucose 126 H Microbiology: Microbiology 03/10/22 06:48 Nasal Secretion SARS-CoV-2 Antigen (Rapid) - Final 03/08/22 05:05 Nasal Secretion SARS-CoV-2 Antigen (Rapid) - Final D/C Instructions Discharge Diet: No restrictions Discharge Activity: Return to Normal Activity, May Shower and Use Walker Weight Bearing Status: Weight bearing as tolerated Call your doctor if you observe: Fever of 101 or Higher, Inability to urinate, Inability to have a bowel movement, Shortness of breath, Dizziness, Fainting spells, Swelling in the ankles, Chest pain and Uncontrolled pain Additional Instructions: Discharge home alone with sister assistance 03/17/2022, [facility] PT/OT. Meaningful Use Info Meaningful Use Diagnoses (Choose all that apply): None applicable Discharge Plan Admission Admit Date/Time: 03/06/22 16:11 Primary Reason for Your Visit: Debility. Attending Provider: Noe Wong Chi Primary Care Provider: Flavia Aldrich Instructions Additional Instructions / Restrictions: Discharge home alone with sister assistance 03/17/2022, [facility] PT/OT. Discharge Orders/Prescriptions Prescriptions: Continued fluticasone propionate [Allergy Relief (fluticasone)] 50 mcg/actuation spray,suspension 2 spray INTRANASAL DAILY Rx Instructions: administer into each nostril fish oil-dha-epa 1,200-144-216 mg capsule 1,200 cap PO DAILY levothyroxine 25 mcg tablet 125 mcg PO DAILY esomeprazole magnesium [Nexium] 20 mg capsule,delayed release(DR/EC) 20 mg PO DAILY multivitamin 1 EACH tablet 1 ea PO DAILY Januvia 50 MG tablet 50 mg PO DAILY nifedipine 30 MG tablet extended release 24hr 30 mg PO DAILY Rx Instructions: Hold for SBP less than 120 mmHg atorvastatin 40 MG tablet 40 mg PO QHS magnesium oxide 400 MG tablet 400 mg PO DAILYCM nystatin [Nyamyc] 100,000 unit/gram powder 1 applic topical BID Protocol: *Topical Application Instructions APPLICATION INSTRUCTIONS: apply to affected areas losartan 100 mg tablet 100 mg PO DAILY Rx Instructions: Hold for SBP less than 120 mmHg sertraline 50 MG tablet 50 mg PO DAILY atenolol 50 mg tablet 25 mg PO QHS Rx Instructions: Hold for heart less than 60 or systolic blood pressure less than 100 mmHg. ondansetron 4 mg tablet,disintegrating 4 mg PO Q8H PRN (Reason: nausea and vomiting) Qty: 14 0RF aspirin 81 mg tablet,delayed release (DR/EC) 81 mg PO BREAKFAST Discontinued oxycodone 5 mg capsule 5 mg PO Q6H PRN (Reason: pain) 7 Days Qty: 28 0RF Referrals / Follow Up: Flavia Aldrich MD [Primary Care Provider] - Disposition Disposition (needs filled in before D/C Order can be placed): Home Health Service
[2022-03-14 20:17] VITALS: BP 120/51; PULSE 65; RESP 18; O2SAT 94
[2022-03-14] MEDS: Atenolol 25 MG Tablet PO (20:24)
[2022-03-14] MEDS: Atorvastatin Calcium 40 MG Tablet PO (20:24)
[2022-03-14 20:49] VITALS: BP 121/62
[2022-03-15] MEDS: Sertraline 50 MG Tablet PO (05:05)
[2022-03-15] MEDS: Pantoprazole Sodium 20 MG Tablet PO (05:05)
[2022-03-15] MEDS: NIFEdipine 30 MG Tablet PO (05:05)
[2022-03-15] MEDS: Menthol/Lanolin/Calamine/Znox 113 GM Tube 1 APPLIC TOPICAL ×2 (05:05→19:47)
[2022-03-15] MEDS: Senna/Docusate Sodium 1 Tablet PO (05:05)
[2022-03-15] MEDS: Losartan Potassium 100 MG Tablet PO (05:05)
[2022-03-15] MEDS: Levothyroxine 125 MCG Tablet PO (05:05)
[2022-03-15] MEDS: Nystatin Powder 15gm Bottle 1 APPLIC TOPICAL ×2 (05:06→19:46)
[2022-03-15] MEDS: Fluticasone 0.05% 1 SPRAY NASAL.SRY 2 SPRAY NASAL (05:06)
[2022-03-15 05:08] VITALS: BP 114/78
[2022-03-15 06:45] LABS: Bedside Glucose 124 mg/dL (74-106)
[2022-03-15] MEDS: Magnesium Chloride 64 MG Delay Rel.Tablet 128 MG PO (08:23)
[2022-03-15] MEDS: Multivitamins,Therapeutic Tablet 1 TABLET PO (08:23)
[2022-03-15] MEDS: Aspirin E.C. 81 MG Tablet PO (08:23)
[2022-03-15] MEDS: LINAGLIPTIN 5 MG TABLET PO (08:23)
[2022-03-15] MEDS: Omega-3 Acid Ethyl Esters 1 GM Capsule PO (08:24)
--- NOTE | 2022-03-15 13:51 | CASEMGMT ---
Social Work IDT met with patient and sister via conference call for care plan meeting. Discussed patient's progress in PT/OT/SN. Confirmed all DC plans are in place for pt to DC home 03/17. No other needs noted. Keren Rivera ,HYDROGRAPHY TEACHER PL SQL PROGRAMMER
[2022-03-15 14:00] VITALS: BP 125/59; PULSE 64; RESP 14; TEMP 36.6; O2SAT 96
[2022-03-15 19:36] VITALS: PULSE 66; RESP 16; O2SAT 97
[2022-03-15] MEDS: Atorvastatin Calcium 40 MG Tablet PO (19:43)
[2022-03-15] MEDS: Atenolol 25 MG Tablet PO (19:48)
[2022-03-15 19:49] VITALS: BP 121/50; PULSE 66; RESP 16
[2022-03-16] MEDS: NIFEdipine 30 MG Tablet PO (05:08)
[2022-03-16] MEDS: Pantoprazole Sodium 20 MG Tablet PO (05:08)
[2022-03-16] MEDS: Levothyroxine 125 MCG Tablet PO (05:08)
[2022-03-16] MEDS: Fluticasone 0.05% 1 SPRAY NASAL.SRY 2 SPRAY NASAL (05:08)
[2022-03-16] MEDS: Losartan Potassium 100 MG Tablet PO (05:09)
[2022-03-16] MEDS: Sertraline 50 MG Tablet PO (05:09)
[2022-03-16] MEDS: Nystatin Powder 15gm Bottle 1 APPLIC TOPICAL ×2 (05:18→19:57)
[2022-03-16] MEDS: Menthol/Lanolin/Calamine/Znox 113 GM Tube 1 APPLIC TOPICAL ×2 (05:19→19:58)
[2022-03-16 06:31] LABS: Bedside Glucose 136 mg/dL (74-106)
[2022-03-16] MEDS: Aspirin E.C. 81 MG Tablet PO (08:01)
[2022-03-16] MEDS: Multivitamins,Therapeutic Tablet 1 TABLET PO (08:01)
[2022-03-16] MEDS: Magnesium Chloride 64 MG Delay Rel.Tablet 128 MG PO (08:01)
[2022-03-16] MEDS: LINAGLIPTIN 5 MG TABLET PO (08:02)
[2022-03-16] MEDS: Omega-3 Acid Ethyl Esters 1 GM Capsule PO (08:02)
--- NOTE | 2022-03-16 09:28 | MDS.RN ---
Information for the mds was obtained from review of the clinical record, interview of resident, staff, and direct observation of resident's care.
--- NOTE | 2022-03-16 13:27 | MDS.RN ---
Pain interview for LEEANNE 03/17/22.
[2022-03-16 14:00] VITALS: BP 100/49; PULSE 65; RESP 14; TEMP 36.4; O2SAT 96
[2022-03-16 19:51] VITALS: BP 131/53; PULSE 67; RESP 18; TEMP 36.4; O2SAT 93
[2022-03-16] MEDS: Atenolol 25 MG Tablet PO (19:58)
[2022-03-16] MEDS: Atorvastatin Calcium 40 MG Tablet PO (19:59)
[2022-03-17] MEDS: Menthol/Lanolin/Calamine/Znox 113 GM Tube 1 APPLIC TOPICAL (05:53)
[2022-03-17] MEDS: Nystatin Powder 15gm Bottle 1 APPLIC TOPICAL (05:54)
[2022-03-17] MEDS: Fluticasone 0.05% 1 SPRAY NASAL.SRY 2 SPRAY NASAL (05:55)
[2022-03-17] MEDS: Losartan Potassium 100 MG Tablet PO (05:56)
[2022-03-17] MEDS: Sertraline 50 MG Tablet PO (05:56)
[2022-03-17] MEDS: Pantoprazole Sodium 20 MG Tablet PO (05:56)
[2022-03-17] MEDS: Levothyroxine 125 MCG Tablet PO (05:56)
[2022-03-17] MEDS: NIFEdipine 30 MG Tablet PO (05:56)
[2022-03-17] MEDS: Senna/Docusate Sodium 1 Tablet PO (05:56)
[2022-03-17 06:45] LABS: Bedside Glucose 169 mg/dL (74-106)
[2022-03-17] MEDS: Omega-3 Acid Ethyl Esters 1 GM Capsule PO (07:56)
[2022-03-17] MEDS: Aspirin E.C. 81 MG Tablet PO (07:56)
[2022-03-17] MEDS: Multivitamins,Therapeutic Tablet 1 TABLET PO (07:56)
[2022-03-17] MEDS: Magnesium Chloride 64 MG Delay Rel.Tablet 128 MG PO (07:56)
[2022-03-17] MEDS: LINAGLIPTIN 5 MG TABLET PO (07:57)
[2022-03-17 11:45] VITALS: BP 123/65; PULSE 70; RESP 18; TEMP 36.4; O2SAT 97
--- NOTE | 2022-03-17 14:54 | CASEMGMT ---
Social Work BIMS and PHQ-9 completed for MDS assessment. Keren Rivera, [employer]
== END 2022-03-17 11:45 | disposition home health service (06) | DRG 638 ==
PROVIDERS: Admitting Provider Family Medicine Geriatric Medicine; PCP Internal Medicine; Visit Provider Family Medicine Geriatric Medicine
DX: E11.649 Type 2 diabetes mellitus with hypoglycemia without coma (principal); Z68.41 Body mass index [BMI] 40.0-44.9, adult; E11.22 Type 2 diabetes mellitus with diabetic chronic kidney disease; E66.01 Morbid (severe) obesity due to excess calories; E03.9 Hypothyroidism, unspecified; B35.4 Tinea corporis; E88.81 Metabolic syndrome and other insulin resistance; N18.30 Chronic kidney disease, stage 3 unspecified; E78.5 Hyperlipidemia, unspecified; K21.9 Gastro-esophageal reflux disease without esophagitis; I12.9 Hypertensive chronic kidney disease with stage 1 through stage 4 chronic kidney disease, or unspecified chronic kidney disease; E83.42 Hypomagnesemia; Z79.899 Other long term (current) drug therapy; Z79.890 Hormone replacement therapy; Z79.82 Long term (current) use of aspirin; F32.A Depression, unspecified; Z79.84 Long term (current) use of oral hypoglycemic drugs; Z23 Encounter for immunization
CPT/HCPCS: 36415; 80048; 82962; 85014; 85018; 85025; 87426; 87811; 97110; 97116; 97162; 97166; 97530; 97535; 97802; G0008; 90686; A4216

== ENCOUNTER → 2022-06-16 | Outpatient (CLI) | payer MEDICARE, SELFPAY ==
--- NOTE | 2022-06-16 13:56 | ECHOCS_ITS ---
Reason For Study: RHEUMATIC MITRAL STENOSIS Procedure This was a 2D Doppler, Color Flow transthoracic echocardiogram. Exam performed in department. Left Ventricle Normal LV size. Moderate concentric left ventricular hypertrophy. Left ventricular systolic function is normal. The estimated ejection fraction is 65 %. Stage 2 diastolic dysfunction. No regional wall motion abnormalities noted. Right Ventricle Normal RV size. Normal systolic function. Atria The left atrium is moderately enlarged. Normal right atrium. Mitral Valve There is moderate to severe mitral annular calcification. Moderate diffuse mitral valve calcification. Tricuspid Valve Normal tricuspid valve. Aortic Valve Trisinus/trileaflet aortic valve. Moderate focal aortic valve calcification. Pulmonic Valve Normal pulmonic valve. Great Vessels Normal aortic root. The pulmonary artery is normal size. Normal inferior vena cava. Pericardium/Pleural No pericardial effusion. MMode/2D Measurements & Calculations LVIDd: 4.6 cm IVSd: 1.3 cm Ao root diam: 3.2 cm LVIDs: 3.0 cm LVPWd: 1.3 cm RVDd: 3.4 cm FS: 35.0 % LAV(MOD-bp): 102.1 ml LA A4 area: 28.6 cm2 LA dimension(2D): 4.5 cm LAV(MOD-bp) Indexed: 54.6 ml/m2 LAV(MOD-sp2): 111.1 ml LAV(MOD-sp4): 96.0 ml RA A4 area: 19.8 cm2 Time Measurements MV dec time: 0.28 sec Doppler Measurements & Calculations MV E max gregory: 165.1 cm/sec Lat Peak E' Gregory: 5.2 cm/sec Med Peak E' Gregory: 4.3 cm/sec MV A max gregory: 149.8 cm/sec E/E' lat: 31.8 E/E' med: 38.6 MV E/A: 1.1 MV V2 max: 157.8 cm/sec MV dec slope: 587.4 cm/sec2 Ao V2 max: 150.4 cm/sec MV max P.0 mmHg Ao max P.1 mmHg MV V2 mean: 111.9 cm/sec Ao V2 mean: 100.0 cm/sec MV mean P.5 mmHg Ao mean P.7 mmHg MV V2 VTI: 50.9 cm Ao V2 VTI: 35.8 cm AV (velocity ratio): 0.78 LV V1 max: 112.6 cm/sec PA V2 max: 101.0 cm/sec PI dec slope: 247.6 cm/sec2 LV V1 max P.1 mmHg LV V1 mean P.2 mmHg LV V1 mean: 84.9 cm/sec LV V1 VTI: 28.0 cm ECHO/Echo Complete W/ Contrast Interpretation Summary Normal LV size. Moderate concentric left ventricular hypertrophy. Left ventricular systolic function is normal. The estimated ejection fraction is 65 %. No regional wall motion abnormalities noted. The left atrium is moderately enlarged. Stage 2 diastolic dysfunction. Moderate diffuse mitral valve calcification. Moderate focal aortic valve calcification. Ordering Physician: Justen Gonzalez Referring Physician: Flavia Aldrich Performed By: Dahiana Miller, PANKAJ, RVT
== END | disposition home or self-care (01) ==
LOC: CVS 13:55
PROVIDERS: PCP Internal Medicine; Visit Provider Internal Medicine Cardiovascular Disease
DX: I48.0 Paroxysmal atrial fibrillation (principal)
CPT/HCPCS: 93306; Q9957; A4216; C8929

== ENCOUNTER 2023-10-22 12:33 | Inpatient (IN) | payer MEDICARE, SELFPAY ==
[2023-10-22] VITALS (17 sets, daily range): BP systolic 108–131; BP diastolic 46–58; PULSE 65–78; RESP 17–24; TEMP 35.9–36.9; O2SAT 73–98; BMI 54.9; BMI 35.2
--- NOTE | 2023-10-22 13:06 | RAD_ITS ---
STUDY: X-RAY CHEST REASON FOR EXAM: Female, 78 years old. Cough and weakness. TECHNIQUE: Single AP portable view of the chest. COMPARISON: Comparison is made with prior study dated February 27, 2022. FINDINGS: EKG electrodes are seen. Right middle lobe consolidation. Mild increased markings at the left lung base. Blunting of the right costophrenic angle. Normal size heart. Normal mediastinum and pako. Normal visualized pulmonary arteries. There is atherosclerotic calcification of the aortic arch with tortuosity. There are diffuse degenerative changes of the visualized thoracic spine. Normal visualized ribs, clavicles, and shoulders. There is no demonstrated abnormality of the visualized soft tissue structures of the upper abdomen. RAD/Chest 1 View (Portable) IMPRESSION: Right middle lobe consolidation with blunting of the right costophrenic angle. Increased markings at the left lung base. Radiographic follow-up is recommended. Electronically Signed: Andrew Merino MD at 14:04 EDT ,
--- NOTE | 2023-10-22 13:06 | EKG12_ITS ---
Test Reason : Blood Pressure : / mmHG Vent. Rate : 070 BPM Atrial Rate : 070 BPM P-R Int : 150 ms QRS Dur : 078 ms QT Int : 408 ms P-R-T Axes : 046 038 022 degrees QTc Int : 440 ms Normal sinus rhythm Normal ECG Confirmed by CORA LIPSCOMB, OK ([id number]), news videotape editor ANN SWANSON ([id number]) on 10/23/2023 8:34:57 AM Referred By: Confirmed By:OK SHEPHERD MD
[2023-10-22 13:13] LABS: Absolute Lymphocyte Count 1.07 X10^3/uL (0.83-4.51); Absolute Neutrophil Count 8.4 X10^3/uL (2.0-7.7); Basophil# 0.02 X10^3/uL; Basophil% 0.2 % (0-1); Eosinophil# 0.03 X10^3/uL; Eosinophils% 0.3 % (0-5); Hematocrit 33.5 % (37-47); Hemoglobin 10.5 g/dL (12.0-15.0); Lymphocyte # 1.07 X10^3/ul (0.83-4.51); Lymphocyte % 10.6 % (19-41); Mean Corp Hgb Conc 31.3 g/dL (32-36); Mean Corpuscular Hgb 27.9 pg (27.0-32.0); Mean Corpuscular Volume 89.1 fL (81-99); Mean Platelet Vol. 10.2 fl (6.2-12.0); Monocyte# 0.47 X10^3/uL; Monocyte% 4.7 % (0-10); NRBC Flagged by Analyzer 0 % (0-5); Neutrophil # 8.44 X10^3/uL (2.7-7.7); Neutrophil % 83.8 % (47-70); Platelet Count 275 K/mm3 (150-450); RBC Distribution Width CV 15.4 % (11.6-14.6); RBC Distribution Width SD 50.3 fl (35.1-43.9); Red Blood Count 3.76 M/mm3 (4.2-5.4); White Blood Count 10.1 K/mm3 (4.4-11.0)
[2023-10-22 13:17] LABS: International Normalized Ratio 1.1
[2023-10-22] MEDS: Ipratropium/Albuterol Sulfate 3 ML AMPUL.NEB INHALATION (13:17)
[2023-10-22 13:18] LABS: Partial Thromboplast Time 30.6 Seconds (24.1-36.2)
[2023-10-22 13:42] LABS: ALB/GLOB Ratio 0.4 RATIO (0.9-2.4); AST(SGOT) 35 U/L (15-37); Alanine Aminotransfer ALT/SGPT 23 U/L (13-56); Albumin, Serum 2.2 g/dL (3.2-5.0); Alkaline Phosphatase 77 U/L (45-117); Anion Gap 5 (5-15); BUN 30 mg/dL (7-18); BUN/Creat Ratio 20.1 RATIO (10-20); Chloride 101 mmol/L (98-107); Creatinine, Serum 1.49 mg/dL (0.55-1.02); EST Glomerular Filtration Rate 36 mL/min (>60); Est Glom Filt Rate - Afr Amer 43 mL/min (>60); Estimated Creatinine Clearance 37.75 ml/min; Globulin 5.4 g/dL (2.2-4.2); Glucose 122 mg/dL (74-106); Potassium 4.5 mmol/L (3.5-5.1); Protein, Total 7.6 g/dL (6.4-8.2); Sodium Level 137 mmol/L (136-145)
[2023-10-22 13:44] LABS: Lactic Acid 1.2 mmol/L (0.4-1.9)
[2023-10-22 13:51] LABS: Mucous, Urine 0 SEEN /hpf (<or=2+); Squamous Epithelial Cells - UA 0 SEEN /hpf (5-10)
[2023-10-22 13:54] LABS: Color, Urine Yellow (Yellow); Glucose, Dipstick Normal (Normal); Ketone-Dipstick Negative (Negative); Leukocyte Esterase-Dipstick 100 /ul (Negative); Nitrite-Dipstick Negative (Negative); Occult Blood-Urine 10 /ul (Negative); Protein-Dipstick 30 mg/dl (Negative); Specific Gravity, Urine 1.015 (1.002-1.030); Urine Bilirubin Dipstick Negative (Negative); Urine Clarity Cloudy (Clear); Urine Urobilinogen 1 mg/dl (Normal)
--- NOTE | 2023-10-22 14:00 | CT_ITS ---
STUDY: CTA CHEST REASON FOR EXAM: Female, 78 years old. Dyspnea and shortness of breath. RADIATION DOSAGE (If Supplied By Facility): CTDIvol = ( 14.73 ) mGy, DLP = ( 530.12 ) mGycm TECHNIQUE: The examination was performed with the intravenous administration of IV 100mL Isovue-370. Post-processing of the angiographic images was performed, with multiplanar reformation and 3D reconstruction. Individualized dose optimization techniques were used for this CT. COMPARISON: Comparison is made with prior chest radiograph dated October 22, 2023. FINDINGS: Normal enhancement of the main pulmonary artery and right and left pulmonary arteries. Normal enhancement of the bilateral peripheral pulmonary arteries. There is no demonstrated pulmonary embolism. There is atherosclerotic calcification of the aortic arch with tortuosity. There is no demonstrated aortic dissection. There are calcifications of the coronary arteries. Enlarged mediastinal lymph nodes. Normal hilar regions. Normal visualized trachea and bronchi. Consolidation in the posterior aspect of the left upper lobe as well as consolidation in the left lower lobe and right lower lobe and right middle lobe. Small bilateral pleural effusions right greater than left. Bronchial dilatation in the right lower lobe with evidence of a soft tissue density within the suggestive of possible mucous plugging. Normal pleura. Normal chest wall structures. There are degenerative changes of thoracic spine. The patient is status post cholecystectomy. Pneumobilia most likely secondary to prior common bile duct exploration. Borderline splenomegaly. CT/CTA Chest W/WO Contrast IMPRESSION: Diffuse bilateral pulmonary consolidation as described. Small bilateral pleural effusions right greater than left. Bronchial dilatation in the right lower lobe with air-fluid within the bronchi. Status post cholecystectomy with pneumobilia in the biliary ducts. Electronically Signed: Andrew Merino MD at 14:36 EDT ,
[2023-10-22 14:01] LABS: Bacteria 3+ /hpf (None Seen)
[2023-10-22 14:02] LABS: Renal Epithelial Cells 0-5 SEEN /hpf (0-5); White Blood Cells 5-10 SEEN /hpf (0-5)
[2023-10-22 14:03] LABS: Red Blood Cells-Urine 0-5 SEEN /hpf (0-5)
[2023-10-22 14:19] LABS: Troponin-I HS 15 pg/mL (3.0-54.0)
--- NOTE | 2023-10-22 15:20 | EDS_ITS ---
HPI History of Present Illness Chief Complaint: Shortness of Breath Informant: patient and EMS Narrative Narrative: 78-year-old female presenting to the emergency room with dyspnea. Patient states that a little over a week ago she began to feel ill. She developed a cough but states that really she just felt generalized myalgias and fatigue. She wears home oxygen at night because she cannot tolerate CPAP mask. She notes a history of stroke and paroxysmal atrial fibrillation. She is a diabetic with a history of hypertension hypothyroidism. Patient denies any fevers. No vomiting or diarrhea. [facility] Medical History Hypothyroidism Debility Anemia Sleep apnea Acute dehydration Osteomyelitis of foot, left, acute Non-pressure chronic ulcer of other part of left foot with fat layer exposed Other acute postprocedural pain Wears glasses Seasonal allergies Arthritis Walker as ambulation aid History of DVT (deep vein thrombosis) Easy bruising Dietary restriction Non-smoker On home oxygen therapy History of echocardiogram Cardiology follow-up encounter History of hip fracture Cellulitis of foot Infected stasis ulcer of left lower extremity Diabetic foot ulcers Bilateral carotid artery stenosis Hypomagnesemia Body mass index (BMI) greater than 40 Iron deficiency anemia Hypertension Debility Closed fracture of left hip requiring operative repair Preop cardiovascular exam Hip fracture, left Mitral valve stenosis Skin ulcer of flank with fat layer exposed Decubitus ulcer of right buttock, stage 1 Skin ulcer of left knee with fat layer exposed Intertriginous dermatitis associated with moisture Skin ulcer of female breast Ulcer of abdomen wall with fat layer exposed Decubitus ulcer of left buttock, stage 3 DVT (deep venous thrombosis) Dysmetabolic syndrome X Essential hypertension SOPHIE (obstructive sleep apnea) Paroxysmal atrial fibrillation Hypoxia Intertrigo Urinary tract infection Depression Physical debility Normochromic normocytic anemia Cerebrovascular accident involving cerebellum Acute ischemic left middle cerebral artery (MCA) stroke Dysarthria Aphasia Occlusion of right vertebral artery Diabetic nephropathy Proteinuria Left atrial enlargement Grade II diastolic dysfunction BPPV (benign paroxysmal positional vertigo) CKD (chronic kidney disease), stage III Morbid obesity with BMI of 40.0-44.9, adult GERD (gastroesophageal reflux disease) HLD (hyperlipidemia) Diabetes mellitus, type II Home Medications ?Medication ?Instructions ?Recorded ?Last Taken ?Type multivitamin 1 ea PO DAILY supplement 09/08/16 06/15/19 History sitagliptin phosphate 50 mg tablet 50 mg PO DAILY diabetes 06/16/19 06/15/19 History (Januvia) fish oil-dha-epa 1,200 mg-144 1,200 cap PO DAILY Supplement 09/01/19 Unknown History mg-216 mg capsule magnesium oxide 400 mg (241.3 mg 400 mg PO DAILYCM Supplement 09/17/20 Unknown History magnesium) tablet nystatin 100,000 unit/gram topical 1 applic topical BID Redness 09/17/20 Unknown History powder (Nyamyc) sertraline 50 mg tablet 50 mg PO DAILY Mood 09/17/20 Unknown History ondansetron 4 mg disintegrating 4 mg PO Q8H PRN nausea and 12/22/21 Unknown Rx tablet vomiting #14 tabs aspirin 81 mg tablet,delayed 81 mg PO BREAKFAST Heart health 03/06/22 Unknown History release atenolol 25 mg tablet 50 mg PO DAILY 02/15/23 Unknown History esomeprazole magnesium 20 mg 20 mg PO .QOD GERD 02/15/23 Unknown History capsule,delayed release (Nexium) ferrous sulfate 325 mg (65 mg 325 mg PO Q OTHER DAY 02/15/23 Unknown History iron) tablet (FeroSul) glimepiride 1 mg tablet 1 mg PO DAILY 02/15/23 Unknown History levothyroxine 125 mcg tablet 125 mcg PO DAILY 02/15/23 Unknown History (Synthroid) losartan 50 mg tablet 100 mg PO DAILY 02/15/23 Unknown History simvastatin 40 mg tablet 40 mg PO DAILY 02/15/23 Unknown History Allergy/AdvReac Type Severity Reaction Status Date / Time adhesive tape Allergy Intermediate Unknown Verified 02/15/23 14:36 Sulfa (Sulfonamide Allergy Rash Verified 02/15/23 14:36 Antibiotics) lisinopril AdvReac cough Verified 02/15/23 14:36 Family History Grandfather Alcoholism Mother Angina at rest Arthritis Diabetes Myocardial infarction, Onset Age: 40 another @70 Heart disease Hypertension Sister Arthritis Bleeding disorder Blood clots Non Hodgkin's lymphoma Kidney cysts Osteoporosis Thyroid disorder Surgical History Amputated toe of left foot History of cataract extraction Social History household members: none Smoking Status: Never smoker alcohol intake: former details: Social substance use type: does not use ROS ROS ED ROS Narrative Generalized fatigue Constitutional Constitutional ED: Denies chills, fever(s) or weight loss Eyes Eyes: Denies change in vision or diplopia ENT ENT ED: Denies ear pain, rhinorrhea or sore throat Cardiovascular Cardiovascular: Denies chest pain, orthopnea, palpitations or racing heartbeat Respiratory/Chest Respiratory/Chest: Reports cough, dyspnea and dyspnea on exertion; Denies orthopnea Gastrointestinal Gastrointestinal: Denies abdominal pain, diarrhea, nausea or vomiting Genitourinary Genitourinary ED: Denies dysuria, hematuria or urinary frequency Musculoskeletal Musculoskeletal: Denies arthralgias or myalgias Integumentary Denies abscess or rash Neurologic Neurologic: Denies headache(s) or weakness Psychiatric Psychiatric: Denies anxiety, depression, suicidal ideation or suicidal thoughts Endocrine Endocrinology: Denies polydipsia, polyphagia or polyuria Allergic/Immunologic Allergic/Immunologic ED: Denies mouth swelling, tongue swelling or urticaria EXAM Physical Exam Const Vital Signs: 10/22/23 12:33 10/22/23 12:38 10/22/23 12:39 Temperature 96.6 F L 96.9 F L Temperature Source Temporal Temporal Pulse Rate 75 74 Respiratory Rate 17 17 Respiratory Effort Short of Breath Respiratory Depth Normal Respiratory Pattern Normal Blood Pressure 131/55 H 131/55 H Blood Pressure Mean 80 80 Pulse Ox 73 73 Oxygen Delivery Method Room Air Room Air Nasal Cannula Oxygen Flow Rate (L/min) 8 10/22/23 12:43 10/22/23 13:06 10/22/23 13:18 Temperature Temperature Source Pulse Rate 72 Respiratory Rate 22 H Respiratory Effort Respiratory Depth Respiratory Pattern Tachypnea Blood Pressure Blood Pressure Mean Pulse Ox 91 Oxygen Delivery Method Nasal Cannula Room Air Oxygen Flow Rate (L/min) 8 10/22/23 13:38 10/22/23 14:00 10/22/23 15:00 Temperature 98.1 F 98.1 F Temperature Source Oral Oral Pulse Rate 75 69 78 Respiratory Rate 23 H 22 H 19 H Respiratory Effort Respiratory Depth Respiratory Pattern Blood Pressure 130/57 H 125/46 H 124/58 H Blood Pressure Mean 81 72 80 Pulse Ox 98 93 96 Oxygen Delivery Method Nasal Cannula Nasal Cannula Oxygen Flow Rate (L/min) 8 8 Positive well nourished and well developed General Appearance ED: well developed and NAD HEENT Reports normocephalic, head/scalp atraumatic and moist mucous membranes Eyes PERRL and EOMs intact bilaterally Neck no lymphadenopathy, supple and no JVD Resp Resp Narrative: Patient has a very moist cough Auscultation: rhonchi, wheezes and diminished lung sounds right lower Cardio regular rate, regular rhythm and no murmurs GI normal to inspection, nondistended, normoactive bowel sounds and non-tender Palpation: soft Back/Spine no CVA tenderness and normal ROM Extremity normal to inspection General Extremety ED: Negative for edema General Extremity: Negative for edema Neuro oriented x3 and CN's II-XII intact bilaterally Sensorium / Orientation: alert Motor Exam: strength 5/5 throughout Psych mental status grossly normal Mood & Affect: Negative for depressed or tearful Skin no rashes or lesions noted and no wounds MDM MDM MDM Narrative Medical decision making narrative: Differential diagnosis includes but not limited to congestive heart failure acute coronary syndrome pneumonia pleural effusion malignancy viral syndrome electrolyte abnormalities dehydration My independent interpretation of the single view chest x-ray is right lower lobe effusion with bibasilar infiltrates. White count 10.1 with 83.8 neutrophils 10.6 lymphocytes. Hemoglobin 10.5 platelet count 275. Lactic acid is normal at 1.2. Glucose 122. Creatinine 1.49 with a BUN of 30. Urinalysis 5-10 white cells 3+ bacteria. Blood and urine cultures were sent. CTA of the chest was obtained which does not demonstrate any obvious pulmonary embolism. There is noted consolidative changes and effusion. Patient received Rocephin and azithromycin. She also received a DuoNeb and supplemental oxygen. Patient will need to be admitted into the hospital. History & Record Review Discussion w/independent historian: EMS personnel and Patient Lab Data Labs: Laboratory Results - last 24 hr 10/22/23 10/22/23 12:45 13:47 WBC 10.1 RBC 3.76 L Hgb 10.5 L Hct 33.5 L MCV 89.1 MCH 27.9 MCHC 31.3 L RDW Std Deviation 50.3 H RDW Coeff of Umu 15.4 H Plt Count 275 MPV 10.2 Immature Gran % (Auto) 0.400 Neut % (Auto) 83.8 H Lymph % (Auto) 10.6 L Kaufman % (Auto) 4.7 Eos % (Auto) 0.3 Baso % (Auto) 0.2 Absolute Neuts (auto) 8.4 H Absolute Lymphs (auto) 1.07 Nucleated RBC % 0 PT 14.0 INR 1.1 APTT 30.6 Sodium 137 Potassium 4.5 Chloride 101 Carbon Dioxide 31.0 Anion Gap 5 BUN 30 H Creatinine 1.49 H Estim Creat Clear Calc 37.75 Est GFR (MDRD) Af Amer 43 L Est GFR (MDRD) Non-Af 36 L BUN/Creatinine Ratio 20.1 H Glucose 122 H Lactic Acid 1.2 Calcium 9.0 Total Bilirubin 0.70 AST 35 ALT 23 Alkaline Phosphatase 77 Troponin I High Sens 15 B-Natriuretic Peptide 284.0 H Total Protein 7.6 Albumin 2.2 L Globulin 5.4 H Albumin/Globulin Ratio 0.4 L Urine Color Yellow Urine Clarity Cloudy Urine pH 6.0 Ur Specific [place] 1.015 Urine Protein 30 H Urine Glucose (UA) Normal Urine Ketones Negative Urine Occult Blood 10 H Urine Nitrite Negative Urine Bilirubin Negative Urine Urobilinogen 1 H Ur Leukocyte Esterase 100 H Urine RBC 0-5 SEEN Urine WBC 5-10 SEEN Ur Squamous Epith Cells 0 SEEN Ur Renal Epithelial Cell 0-5 SEEN Urine Bacteria 3+ Urine Mucus 0 SEEN Radiography Diagnostic Testing: Clinical Impression(s) from Imaging Studies Chest X-Ray 10/22/23 13:06 IMPRESSION: Right middle lobe consolidation with blunting of the right costophrenic angle. Increased markings at the left lung base. Radiographic follow-up is recommended. Electronically Signed: Andrew Merino MD at 14:04 EDT , Chest CTA 10/22/23 14:00 IMPRESSION: Diffuse bilateral pulmonary consolidation as described. Small bilateral pleural effusions right greater than left. Bronchial dilatation in the right lower lobe with air-fluid within the bronchi. Status post cholecystectomy with pneumobilia in the biliary ducts. Electronically Signed: Andrew Merino MD at 14:36 EDT , EKG Initial EKG: Attestation: I personally reviewed and interpreted this EKG as follows: Comments: Normal sinus rhythm ventricular rate of 70 bpm Management Discussion w/another healthcare provider: Hospitalist Discharge Plan Triage Chief Complaint: Shortness of Breath ED Provider: Angel Santiago Dx/Rx/DC Orders Prescriptions: No Action fish oil-dha-epa 1,200-144-216 mg capsule 1,200 cap PO DAILY esomeprazole magnesium [Nexium] 20 mg capsule,delayed release(DR/EC) 20 mg PO .QOD atenolol 25 mg tablet 50 mg PO DAILY levothyroxine [Synthroid] 125 mcg tablet 125 mcg PO DAILY losartan 50 mg tablet 100 mg PO DAILY simvastatin 40 mg tablet 40 mg PO DAILY ferrous sulfate [FeroSul] 325 mg (65 mg iron) tablet 325 mg PO Q OTHER DAY glimepiride 1 mg tablet 1 mg PO DAILY multivitamin 1 EACH tablet 1 ea PO DAILY Januvia 50 MG tablet 50 mg PO DAILY magnesium oxide 400 MG tablet 400 mg PO DAILYCM nystatin [Nyamyc] 100,000 unit/gram powder 1 applic topical BID Protocol: *Topical Application Instructions APPLICATION INSTRUCTIONS: apply to affected areas sertraline 50 MG tablet 50 mg PO DAILY ondansetron 4 mg tablet,disintegrating 4 mg PO Q8H PRN (Reason: nausea and vomiting) Qty: 14 0RF aspirin 81 mg tablet,delayed release (DR/EC) 81 mg PO BREAKFAST Primary Care Provider: Flavia Aldrich Referrals: Flavia Aldrich MD [Primary Care Provider] - Print Language: Jordanian
[2023-10-22] MEDS: Ceftriaxone 1 GM/50 ML BAG IV (15:26)
--- NOTE | 2023-10-22 15:38 | PCM.HP.STD ---
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 Workup in the ED included T96.6, heart rate 75, BP 131/55, respiratory rate 17, initially 73% on room air with improvement to 91% on 8 L nasal cannula with most recent repeat vital signs T98.1, heart rate 78, BP 124/58, respiratory rate 19, 96% on 8 L nasal cannula, CBC with WC 10.1, hemoglobin 10.5, MCV 89.1, platelet 275 with left shift, unremarkable coags, CMP with BUN/creatinine 30/1.49, GFR 36, glucose 122, lactic acid 1.2, troponin 15, BNP 284, urinalysis with occult blood 10, nitrite negative, leukocyte Estrace 100 with urine WBCs 5-10 with 3+ urine bacteria, urine culture pending per ED, blood culture pending per ED, chest x-ray with right middle lobe consolidation with blunting the right costophrenic angle, increased markings at the left lung bases, CTPA with diffuse bilateral pulmonary consolidation, small bilateral pleural effusions right greater than left, bronchial dilatation right lower lobe with air-fluid within the bronchi. In the ED patient ministered DuoNeb therapy as well as azithromycin and Rocephin. FOR[facility]LY [facility], [facility] Medical History Diabetes Osteoporosis Asthma Coronary artery disease Hypertension Hypothyroidism Debility Anemia Sleep apnea Acute dehydration Osteomyelitis of foot, left, acute Non-pressure chronic ulcer of other part of left foot with fat layer exposed Other acute postprocedural pain Wears glasses Seasonal allergies Arthritis Walker as ambulation aid History of DVT (deep vein thrombosis) Easy bruising Dietary restriction Non-smoker On home oxygen therapy History of echocardiogram Cardiology follow-up encounter History of hip fracture Cellulitis of foot Infected stasis ulcer of left lower extremity Diabetic foot ulcers Bilateral carotid artery stenosis Hypomagnesemia Body mass index (BMI) greater than 40 Iron deficiency anemia Hypertension Debility Closed fracture of left hip requiring operative repair Preop cardiovascular exam Hip fracture, left Mitral valve stenosis Skin ulcer of flank with fat layer exposed Decubitus ulcer of right buttock, stage 1 Skin ulcer of left knee with fat layer exposed Intertriginous dermatitis associated with moisture Skin ulcer of female breast Ulcer of abdomen wall with fat layer exposed Decubitus ulcer of left buttock, stage 3 DVT (deep venous thrombosis) Dysmetabolic syndrome X Essential hypertension SOPHIE (obstructive sleep apnea) Paroxysmal atrial fibrillation Hypoxia Intertrigo Urinary tract infection Depression Physical debility Normochromic normocytic anemia Cerebrovascular accident involving cerebellum Acute ischemic left middle cerebral artery (MCA) stroke Dysarthria Aphasia Occlusion of right vertebral artery Diabetic nephropathy Proteinuria Left atrial enlargement Grade II diastolic dysfunction BPPV (benign paroxysmal positional vertigo) CKD (chronic kidney disease), stage III Morbid obesity with BMI of 40.0-44.9, adult GERD (gastroesophageal reflux disease) HLD (hyperlipidemia) Diabetes mellitus, type II Home Medications ?Medication ?Instructions ?Recorded ?Last Taken ?Type multivitamin 1 ea PO DAILY supplement 09/08/16 06/15/19 History sitagliptin phosphate 50 mg tablet 50 mg PO DAILY diabetes 06/16/19 06/15/19 History (Maureen) fish oil-dha-epa 1,200 mg-144 1,200 cap PO DAILY Supplement 09/01/19 Unknown History mg-216 mg capsule magnesium oxide 400 mg (241.3 mg 400 mg PO DAILYCM Supplement 09/17/20 Unknown History magnesium) tablet nystatin 100,000 unit/gram topical 1 applic topical BID Redness 09/17/20 Unknown History powder ([facility]) sertraline 50 mg tablet 50 mg PO DAILY Mood 09/17/20 Unknown History ondansetron 4 mg disintegrating 4 mg PO Q8H PRN nausea and 12/22/21 Unknown Rx tablet vomiting #14 tabs aspirin 81 mg tablet,delayed 81 mg PO BREAKFAST Heart health 03/06/22 Unknown History release atenolol 25 mg tablet 50 mg PO DAILY 02/15/23 Unknown History esomeprazole magnesium 20 mg 20 mg PO .QOD GERD 02/15/23 Unknown History capsule,delayed release (Nexium) ferrous sulfate 325 mg (65 mg 325 mg PO Q OTHER DAY 02/15/23 Unknown History iron) tablet (FeroSul) glimepiride 1 mg tablet 1 mg PO DAILY 02/15/23 Unknown History levothyroxine 125 mcg tablet 125 mcg PO DAILY 02/15/23 Unknown History (Synthroid) losartan 50 mg tablet 100 mg PO DAILY 02/15/23 Unknown History simvastatin 40 mg tablet 40 mg PO DAILY 02/15/23 Unknown History Allergy/AdvReac Type Severity Reaction Status Date / Time adhesive tape Allergy Intermediate Unknown Verified 02/15/23 14:36 Sulfa (Sulfonamide Allergy Rash Verified 02/15/23 14:36 Antibiotics) lisinopril AdvReac cough Verified 02/15/23 14:36 Family History Grandfather Alcoholism Mother Angina at rest Arthritis Diabetes Myocardial infarction, Onset Age: 40 another @70 Heart disease Hypertension Sister Arthritis Bleeding disorder Blood clots Non Hodgkin's lymphoma Kidney cysts Osteoporosis Thyroid disorder Surgical History Amputated toe of left foot History of cataract extraction Social History household members: none Smoking Status: Never smoker alcohol intake: former details: Social substance use type: does not use ROS ROS Narrative Admission Review of Systems: CONSTITUTIONAL: No weight loss, fever, + chills, weakness or fatigue. HEENT + congestion, rhinorrhea. Eyes: No visual loss, blurred vision, double vision or yellow sclerae. Ears, Nose, Throat: No hearing loss, sneezing, or sore throat. SKIN: No rash or itching, lesions, wounds. CARDIOVASCULAR: + Pleuritic chest discomfort, worse with deep inspiratory effort, chronic edema. No palpitations, orthopnea, syncopal events. RESPIRATORY: + Dyspnea with minimally productive cough. No marked wheezing, hemoptysis. GASTROINTESTINAL: + anorexia. No nausea, vomiting or diarrhea, abdominal pain, melena, BRBPR. GENITOURINARY: No dysuria, frequency, urgency or retention. NEUROLOGICAL: + History of prior CVA, chronic dysphagia. No headache, dizziness, syncope, paralysis, ataxia, numbness or tingling in the extremities, change in bowel or bladder control, seizure. MUSCULOSKELETAL: + muscle, back pain, joint pain or stiffness. HEMATOLOGIC: + Chronic anemia, easy bleeding/bruising. LYMPHATICS: No enlarged nodes. No history of splenectomy. PSYCHIATRIC: + History of anxiety and depression. ENDOCRINOLOGIC: No reports of sweating, cold or heat intolerance. No polyuria or polydipsia. ALLERGIES: No history of asthma, hives, eczema or rhinitis. Vital Signs Vital Signs Vital Signs: 10/22/23 12:33 10/22/23 12:38 10/22/23 12:39 Temperature 96.6 F L 96.9 F L Temperature Source Temporal Temporal Pulse Rate 75 74 Respiratory Rate 17 17 Respiratory Effort Short of Breath Respiratory Depth Normal Respiratory Pattern Normal Blood Pressure 131/55 H 131/55 H Blood Pressure Mean 80 80 Pulse Ox 73 73 Oxygen Delivery Method Room Air Room Air Nasal Cannula Oxygen Flow Rate (L/min) 8 10/22/23 12:43 10/22/23 13:06 10/22/23 13:18 Temperature Temperature Source Pulse Rate 72 Respiratory Rate 22 H Respiratory Effort Respiratory Depth Respiratory Pattern Tachypnea Blood Pressure Blood Pressure Mean Pulse Ox 91 Oxygen Delivery Method Nasal Cannula Room Air Oxygen Flow Rate (L/min) 8 10/22/23 13:38 10/22/23 14:00 10/22/23 15:00 Temperature 98.1 F 98.1 F Temperature Source Oral Oral Pulse Rate 75 69 78 Respiratory Rate 23 H 22 H 19 H Respiratory Effort Respiratory Depth Respiratory Pattern Blood Pressure 130/57 H 125/46 H 124/58 H Blood Pressure Mean 81 72 80 Pulse Ox 98 93 96 Oxygen Delivery Method Nasal Cannula Nasal Cannula Oxygen Flow Rate (L/min) 8 8 Weight Weight: 280 lb Body Mass Index (BMI) 54.9 Physical Exam Narrative Physical Examination: General: Awake, alert, oriented x 3 and cooperative, seated upright in the ED bed, fatigued but no acute distress despite 8 L nasal cannula usage currently. Skin: Normal color, normal turgor, no icterus, no cyanosis except occasional staged ecchymoses, occasional abrasion HEENT: AT/NC, EOMI, PERRLA, mildly dry MM, no carotid bruits or JVD noted, mildly hoarse voice. Lungs: Diminished, mildly coarse, rhonchorous, no evidence of any respiratory distress, mildly increased respiratory rate, no marked wheezing. Heart: Regular rate and rhythm; no gallop, rub audible. Abdomen: Soft, obese, NTTP, ND, distant normal BS, no appreciated HSM. Extremities: No cyanosis, no clubbing, bilateral chronic peripheral distal edema. Neurological: Patient awake, alert, oriented as noted, cognitive function intact; pupils equally reactive to light and accommodation, cranial nerves grossly normal, moving extremities, strength severely globally decreased secondary to acute presentation. Psychiatric: Affect appears fatigued, ill-appearing, no acute evidence of depressive or anxiety feelings But does have underlying history. Results Lab / Micro Data 10/22/23 12:45 10/22/23 12:45 Labs: Laboratory Results - last 24 hr 10/22/23 12:45: WBC 10.1, RBC 3.76 L, Hgb 10.5 L, Hct 33.5 L, MCV 89.1, MCH 27.9, MCHC 31.3 L, RDW Std Deviation 50.3 H, RDW Coeff of Umu 15.4 H, Plt Count 275, MPV 10.2, Immature Gran % (Auto) 0.400, Neut % (Auto) 83.8 H, Lymph % (Auto) 10.6 L, Harris % (Auto) 4.7, Eos % (Auto) 0.3, Baso % (Auto) 0.2, Absolute Neuts (auto) 8.4 H, Absolute Lymphs (auto) 1.07, Nucleated RBC % 0, PT 14.0, INR 1.1, APTT 30.6, Sodium 137, Potassium 4.5, Chloride 101, Carbon Dioxide 31.0, Anion Gap 5, BUN 30 H, Creatinine 1.49 H, Estim Creat Clear Calc 37.75, Est GFR (MDRD) Af Amer 43 L, Est GFR (MDRD) Non-Af 36 L, BUN/Creatinine Ratio 20.1 H, Glucose 122 H, Lactic Acid 1.2, Calcium 9.0, Total Bilirubin 0.70, AST 35, ALT 23, Alkaline Phosphatase 77, Troponin I High Sens 15, B-Natriuretic Peptide 284.0 H, Total Protein 7.6, Albumin 2.2 L, Globulin 5.4 H, Albumin/Globulin Ratio 0.4 L 07/22/24 13:47: Urine Color Yellow, Urine Clarity Cloudy, Urine pH 6.0, Ur Specific Revere 1.015, Urine Protein 30 H, Urine Glucose (UA) Normal, Urine Ketones Negative, Urine Occult Blood 10 H, Urine Nitrite Negative, Urine Bilirubin Negative, Urine Urobilinogen 1 H, Ur Leukocyte Esterase 100 H, Urine RBC 0-5 SEEN, Urine WBC 5-10 SEEN, Ur Squamous Epith Cells 0 SEEN, Ur Renal Epithelial Cell 0-5 SEEN, Urine Bacteria 3+, Urine Mucus 0 SEEN Imaging Radiology Impression Chest X-Ray 10/22/23 13:06 IMPRESSION: Right middle lobe consolidation with blunting of the right costophrenic angle. Increased markings at the left lung base. Radiographic follow-up is recommended. Electronically Signed: Andrew Merino MD at 14:04 EDT , Chest CTA 10/22/23 14:00 IMPRESSION: Diffuse bilateral pulmonary consolidation as described. Small bilateral pleural effusions right greater than left. Bronchial dilatation in the right lower lobe with air-fluid within the bronchi. Status post cholecystectomy with pneumobilia in the biliary ducts. 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 #1. Acute Hypoxia (Noted 73% on RA upon ED presentation, quickly improved with oxygen supplementation into 90s, no evidence respiratory distress) secondary to Acute Bilateral Pneumonia with small BL effusions: Will admit to PCU given notable oxygen usage, maintain on oxygen with wean as tolerated to room air, continue ATC budesonide, PRN albuterol, maintained on IV azithromycin and Rocephin but low threshold to broaden if necessary, HOB, IS parameters w/ pending sputum cultures, full respiratory viral panel and urine antigens. Bld cx x 2 obtained in the ED. Suspect may require consideration airvo versus BIPAP but no intubation per discussions. PT/OT/ST/CM consultation for discharge planning. #2. Bilateral eye discharge, suspected likely recent viral syndrome with now superimposed bacterial infection as noted #1 with bilateral conjunctivitis: Will initiate bilateral erythromycin ointment. #3. Acute Renal Insufficiency versus advancing renal disease with Underlying Chronic Kidney Disease Stage III per GFR trending, unclear subtype: Admission BUN/Cr 30/1.49, GFR 36, baseline renal function previously 0.8-1.0 however again this is remote from 2021 thus suspect likely renal function has likely worsened over this time, repeat BMP in AM. #4. Bacteriuria, asymptomatic: Patient denies any urinary symptoms, urinalysis with negative nitrite, however leukocyte Estrace 100 with urine to BCs 5-10 with 3+ urine bacteria, urine culture pending per ED, as noted given presentation maintained on IV Rocephin therapy. #5. PAF: Patient not in atrial fibrillation, will continue patient home atenolol regimen, per current list does not appear to be chronically anticoagulated. #6. 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 #7. Hypertension: Continue home regimen including atenolol, losartan although given renal insufficiency low threshold to hold if renal function worsens, PRN hydralazine. #8. Hyperlipidemia: Per current list does not appear to be on statin therapy but clarifying. #9. Hx VTE: Per current list does not appear to be chronically anticoagulated, previous history DVT, PE noted. #10. Chronic anemia/Fe deficiency anemia: Admission hemoglobin 10.5, MCV 89.1, baseline hemoglobin appears remotely 8-9, last labs noted 2021, unclear recent baseline, will continue to trend CBC, will continue home iron supplementation regimen. #11. Diabetes mellitus type II with chronic neuropathy and Hx diabetic wounds: Hold oral home regimen, ADA diet, accu checks w/ ISS. Per current list does not appear to be on any Lyrica or gabapentin but clarifying. #12. SOPHIE: Uses nightly oxygen secondary to CPAP mask intolerance. #13. Anxiety and depression: We will continue patient home sertraline regimen. #14. Hypothyroidism: We will continue patient on levothyroxine regimen. #15. GERD: We will continue patient home PPI. #16. Obesity: Weight loss and lifestyle changes encouraged. #17. DVT prophylaxis: Lovenox. #18. CODE status: Patient KANA is her Sister Francine and living will is currently in place. Discussed CODE status at length including difference between FULL code, DNR-CCA and DNR-CC status. Following discussions about the differences in these status, requested DNR-CCA, no intubation status, no aggressive measures including no central line or pressor therapy. She is willing to use airvo and BIPAP. Advanced Care Planning Face to Face Time: 16 minutes. Charges/Coding Visit Charges Inpatient E&M: 54567 Init Hosp L3 Procedures Hospitalists Procedures: 31688 Advncd Care Plan 30 Min
[2023-10-22] MEDS: Azithromycin 500 MG in Dextrose 5%-Water (250mL Bag) 250 ML 250 MG IV (16:22)
--- NOTE | 2023-10-22 16:28 | NURSING ---
PCU [facility]UMON[facility]
[2023-10-22 16:30] LABS: Procalcitonin 0.08 ng/mL (0.00-0.09)
[2023-10-22] MEDS: Erythromycin Base 1 OPTH.TUBE 1 APPLIC EACH EYE ×2 (18:42→21:55)
[2023-10-22] MEDS: 0.9% Normal Saline (1000mL) 1,000 ML 100 ML IV (18:52)
[2023-10-22 19:12] LABS: Bedside Glucose 128 mg/dL (74-106)
[2023-10-22] MEDS: Budesonide Respules 0.5 MG/2 ML AMPUL.NEB. INHALATION (19:32)
[2023-10-22] MEDS: Atorvastatin Calcium 20 MG Tablet PO (21:55)
[2023-10-22] MEDS: Nystatin Powder 15gm Bottle 1 APPLIC TOPICAL (21:56)
[2023-10-22 22:40] LABS: Bedside Glucose 137 mg/dL (74-106)
[2023-10-23] VITALS (20 sets, daily range): BP systolic 106–134; BP diastolic 47–98; PULSE 67–84; RESP 12–32; TEMP 36.4–36.8; O2SAT 90–99; BMI 36.0
[2023-10-23 00:43] LABS: M R Staph aureus DNA By PCR Negative (Negative); Probe Check PASS; Specimen Processing Control PASS
[2023-10-23] MEDS: Furosemide 40 MG/4 ML Vial IV (05:23)
[2023-10-23] MEDS: MethylPREDNISolone 125 MG/2 ML Vial IV (05:47)
[2023-10-23] MEDS: Levothyroxine 125 MCG Tablet PO (05:48)
[2023-10-23 06:41] LABS: Absolute Lymphocyte Count 1.18 X10^3/uL (0.83-4.51); Absolute Neutrophil Count 7.7 X10^3/uL (2.0-7.7); Basophil# 0.02 X10^3/uL; Basophil% 0.2 % (0-1); Eosinophil# 0.12 X10^3/uL; Eosinophils% 1.3 % (0-5); Hematocrit 33.5 % (37-47); Hemoglobin 10.5 g/dL (12.0-15.0); Lymphocyte # 1.18 X10^3/ul (0.83-4.51); Lymphocyte % 12.4 % (19-41); Mean Corp Hgb Conc 31.3 g/dL (32-36); Mean Corpuscular Hgb 27.9 pg (27.0-32.0); Mean Corpuscular Volume 88.9 fL (81-99); Monocyte# 0.41 X10^3/uL; Monocyte% 4.3 % (0-10); NRBC Flagged by Analyzer 0 % (0-5); Neutrophil # 7.73 X10^3/uL (2.7-7.7); Neutrophil % 81.5 % (47-70); Platelet Count 277 K/mm3 (150-450); RBC Distribution Width CV 15.1 % (11.6-14.6); RBC Distribution Width SD 49.3 fl (35.1-43.9); Red Blood Count 3.77 M/mm3 (4.2-5.4); White Blood Count 9.5 K/mm3 (4.4-11.0)
[2023-10-23 07:10] LABS: Bedside Glucose 86 mg/dL (74-106)
[2023-10-23 07:22] LABS: ALB/GLOB Ratio 0.4 RATIO (0.9-2.4); AST(SGOT) 34 U/L (15-37); Alanine Aminotransfer ALT/SGPT 22 U/L (13-56); Alkaline Phosphatase 79 U/L (45-117); Anion Gap 4 (5-15); BUN 26 mg/dL (7-18); BUN/Creat Ratio 21.3 RATIO (10-20); Calcium,Total 9.3 mg/dL (8.5-10.1); Chloride 103 mmol/L (98-107); Creatinine, Serum 1.22 mg/dL (0.55-1.02); EST Glomerular Filtration Rate 45 mL/min (>60); Est Glom Filt Rate - Afr Amer 55 mL/min (>60); Estimated Creatinine Clearance 35.88 ml/min; Globulin 5.2 g/dL (2.2-4.2); Glucose 77 mg/dL (74-106); Potassium 4.3 mmol/L (3.5-5.1); Protein, Total 7.2 g/dL (6.4-8.2); Sodium Level 136 mmol/L (136-145)
--- NOTE | 2023-10-23 07:35 | EX.PCM.CONCC ---
Assessment & Plan Assessment/Plan (1) Acute hypoxemic respiratory failure: PLAN: Plan RECOMMENDATIONS: 1. Wean FiO2 to maintain oxygen saturations at or above 90%. 2. Agree with broadening of antimicrobial therapy. 3. Check COVID PCR. 4. Consider redosing Lasix yet again today, if tolerated by hemodynamics. 5. Obtain follow-up chest x-ray. 6. Continue aggressive bronchopulmonary hygiene. IMPRESSIONS: 1. Acute hypoxemic respiratory failure Most likely multifactorial in etiology. While the patient does have significant bilateral airspace disease, concerning for pneumonia, I cannot discount the possibility of underlying heart failure as well. I agree with broadening of antimicrobials, given worsening oxygenation status over the last 24 hours. The patient did receive a one-time dose of Lasix this morning. It would be reasonable to re-administer Lasix again this evening, if feasible from a hemodynamic perspective. In the interim, continue to wean FiO2 to maintain saturations at or above 90%. I am going to obtain a follow-up chest x-ray this morning, and check a COVID PCR. Recommend continuing aggressive bronchopulmonary hygiene. 2. History of paroxysmal atrial fibrillation/history of CVA/valvular heart disease/heart failure preserved ejection fraction/hypertension/hyperlipidemia Complicates care, management, recovery and prognosis. Continue home medications as indicated. This note was generated with [employer] dictation software. It may contain incorrect words, spelling, and punctuation that were not noted in checking the note before signing. HPI Consult Data Date of Consult: 10/23/23 HPI Narrative Reason for Consultation: Respiratory failure with hypoxemia HPI Narrative: The patient is a 78-year-old female, with a history as outlined below, who presented to the emergency department on October 21 with generalized malaise, fatigue, shortness of breath and cough. The patient is currently followed in the cardiology clinic due to a history of paroxysmal atrial fibrillation, mitral stenosis and heart failure with preserved ejection fraction. She reported that she initially began to feel ill nearly 1 week ago on Sunday evening. Her symptoms progressively worsened with time. She currently denies the presence of a cough. On presentation to the emergency department, the patient was documented to have a temperature of 96.9 ?F. She was otherwise hemodynamically stable, but requiring 8 L/min of supplemental oxygen to maintain saturations. Laboratory evaluation revealed a normal white blood cell count with a hemoglobin of 10.5 g/dL and normal platelet count. Chemistry profile was notable for a creatinine of 1.49. Lactate was normal at 1.2. BNP was elevated at 284. Procalcitonin was normal. Urine analysis was positive for leukocyte Estrace and 3+ urine bacteria. MRSA screen was negative. Strep and urine Legionella antigens were negative. Respiratory viral panel was negative. CTA chest showed no evidence for pulmonary embolism. However, there was significant bilateral airspace consolidation along with a small right pleural effusion. The patient was ultimately placed on antimicrobial therapy and admitted to the progressive care unit for further management. FORMERLY [facility] Medical History Diabetes Osteoporosis Asthma Coronary artery disease Hypertension Hypothyroidism Debility Anemia Sleep apnea Acute dehydration Osteomyelitis of foot, left, acute Non-pressure chronic ulcer of other part of left foot with fat layer exposed Other acute postprocedural pain Wears glasses Seasonal allergies Arthritis Walker as ambulation aid History of DVT (deep vein thrombosis) Easy bruising Dietary restriction Non-smoker On home oxygen therapy History of echocardiogram Cardiology follow-up encounter History of hip fracture Cellulitis of foot Infected stasis ulcer of left lower extremity Diabetic foot ulcers Bilateral carotid artery stenosis Hypomagnesemia Body mass index (BMI) greater than 40 Iron deficiency anemia Hypertension Debility Closed fracture of left hip requiring operative repair Preop cardiovascular exam Hip fracture, left Mitral valve stenosis Skin ulcer of flank with fat layer exposed Decubitus ulcer of right buttock, stage 1 Skin ulcer of left knee with fat layer exposed Intertriginous dermatitis associated with moisture Skin ulcer of female breast Ulcer of abdomen wall with fat layer exposed Decubitus ulcer of left buttock, stage 3 DVT (deep venous thrombosis) Dysmetabolic syndrome X Essential hypertension SOPHIE (obstructive sleep apnea) Paroxysmal atrial fibrillation Hypoxia Intertrigo Urinary tract infection Depression Physical debility Normochromic normocytic anemia Cerebrovascular accident involving cerebellum Acute ischemic left middle cerebral artery (MCA) stroke Dysarthria Aphasia Occlusion of right vertebral artery Diabetic nephropathy Proteinuria Left atrial enlargement Grade II diastolic dysfunction BPPV (benign paroxysmal positional vertigo) CKD (chronic kidney disease), stage III Morbid obesity with BMI of 40.0-44.9, adult GERD (gastroesophageal reflux disease) HLD (hyperlipidemia) Diabetes mellitus, type II Home Medications ?Medication ?Instructions ?Recorded ?Last Taken ?Type multivitamin 1 ea PO DAILY supplement 09/08/16 06/15/19 History sitagliptin phosphate 50 mg tablet 50 mg PO DAILY diabetes 06/16/19 06/15/19 History (Januvia) fish oil-dha-epa 1,200 mg-144 1,200 cap PO DAILY Supplement 09/01/19 Unknown History mg-216 mg capsule magnesium oxide 400 mg (241.3 mg 400 mg PO DAILYCM Supplement 09/17/20 Unknown History magnesium) tablet nystatin 100,000 unit/gram topical 1 applic topical BID Redness 09/17/20 Unknown History powder ([facility]) sertraline 50 mg tablet 50 mg PO DAILY Mood 09/17/20 Unknown History ondansetron 4 mg disintegrating 4 mg PO Q8H PRN nausea and 12/22/21 Unknown Rx tablet vomiting #14 tabs aspirin 81 mg tablet,delayed 81 mg PO BREAKFAST Heart health 03/06/22 Unknown History release atenolol 25 mg tablet 50 mg PO DAILY 02/15/23 Unknown History esomeprazole magnesium 20 mg 20 mg PO .QOD GERD 02/15/23 Unknown History capsule,delayed release (Nexium) ferrous sulfate 325 mg (65 mg 325 mg PO Q OTHER DAY 02/15/23 Unknown History iron) tablet (FeroSul) glimepiride 1 mg tablet 1 mg PO DAILY 02/15/23 Unknown History levothyroxine 125 mcg tablet 125 mcg PO DAILY 02/15/23 Unknown History (Synthroid) losartan 50 mg tablet 100 mg PO DAILY 02/15/23 Unknown History simvastatin 40 mg tablet 40 mg PO DAILY 02/15/23 Unknown History Allergy/AdvReac Type Severity Reaction Status Date / Time adhesive tape Allergy Intermediate Unknown Verified 02/15/23 14:36 Sulfa (Sulfonamide Allergy Rash Verified 02/15/23 14:36 Antibiotics) lisinopril AdvReac cough Verified 02/15/23 14:36 Family History Grandfather Alcoholism Mother Angina at rest Arthritis Diabetes Myocardial infarction, Onset Age: 40 another @70 Heart disease Hypertension Sister Arthritis Bleeding disorder Blood clots Non Hodgkin's lymphoma Kidney cysts Osteoporosis Thyroid disorder Surgical History Amputated toe of left foot History of cataract extraction Social History household members: none Smoking Status: Never smoker alcohol intake: former details: Social substance use type: does not use ROS ROS Narrative 10 systems were reviewed with pertinent positives as noted in the HPI above. Physical Exam Const alert and no apparent distress General Appearance: cooperative HEENT normocephalic and head/scalp atraumatic Eyes PERRL, EOMs intact bilaterally and conjunctivae normal Neck supple General: trachea midline Chest inspection of chest normal Resp normal respiratory effort and no use of accessory muscles Auscultation: rhonchi and diminished lung sounds Cardio regular rate and regular rhythm Heart Sounds: murmur GI normal to inspection, nondistended, normoactive bowel sounds Extremity no clubbing, cyanosis or edema Skin no rashes or lesions noted Neuro oriented x3, CN's II-XII intact bilaterally and moves all extremities Psych cooperative and affect normal Lab / Micro Data 10/23/23 06:27 10/23/23 06:27 Labs: Laboratory Results - last 24 hr 10/22/23 12:45: WBC 10.1, RBC 3.76 L, Hgb 10.5 L, Hct 33.5 L, MCV 89.1, MCH 27.9, MCHC 31.3 L, RDW Std Deviation 50.3 H, RDW Coeff of Umu 15.4 H, Plt Count 275, MPV 10.2, Immature Gran % (Auto) 0.400, Neut % (Auto) 83.8 H, Lymph % (Auto) 10.6 L, [place] % (Auto) 4.7, Eos % (Auto) 0.3, Baso % (Auto) 0.2, Absolute Neuts (auto) 8.4 H, Absolute Lymphs (auto) 1.07, Nucleated RBC % 0, PT 14.0, INR 1.1, APTT 30.6, Sodium 137, Potassium 4.5, Chloride 101, Carbon Dioxide 31.0, Anion Gap 5, BUN 30 H, Creatinine 1.49 H, Estim Creat Clear Calc 37.75, Est GFR (MDRD) Af Amer 43 L, Est GFR (MDRD) Non-Af 36 L, BUN/Creatinine Ratio 20.1 H, Glucose 122 H, Lactic Acid 1.2, Calcium 9.0, Total Bilirubin 0.70, AST 35, ALT 23, Alkaline Phosphatase 77, Troponin I High Sens 15, B-Natriuretic Peptide 284.0 H, Total Protein 7.6, Albumin 2.2 L, Globulin 5.4 H, Albumin/Globulin Ratio 0.4 L, Procalcitonin 0.08 10/22/23 13:47: Urine Color Yellow, Urine Clarity Cloudy, Urine pH 6.0, Ur Specific [place] 1.015, Urine Protein 30 H, Urine Glucose (UA) Normal, Urine Ketones Negative, Urine Occult Blood 10 H, Urine Nitrite Negative, Urine Bilirubin Negative, Urine Urobilinogen 1 H, Ur Leukocyte Esterase 100 H, Urine RBC 0-5 SEEN, Urine WBC 5-10 SEEN, Ur Squamous Epith Cells 0 SEEN, Ur Renal Epithelial Cell 0-5 SEEN, Urine Bacteria 3+, Urine Mucus 0 SEEN 10/22/23 18:43: POC Glucose 128 H 10/22/23 21:59: POC Glucose 137 H 10/22/23 22:20: MRSA (PCR) Negative 10/23/23 06:27: WBC 9.5, RBC 3.77 L, Hgb 10.5 L, Hct 33.5 L, MCV 88.9, MCH 27.9, MCHC 31.3 L, RDW Std Deviation 49.3 H, RDW Coeff of Umu 15.1 H, Plt Count 277, MPV 10.0, Immature Gran % (Auto) 0.300, Neut % (Auto) 81.5 H, Lymph % (Auto) 12.4 L, [place] % (Auto) 4.3, Eos % (Auto) 1.3, Baso % (Auto) 0.2, Absolute Neuts (auto) 7.7, Absolute Lymphs (auto) 1.18, Nucleated RBC % 0, Sodium 136, Potassium 4.3, Chloride 103, Carbon Dioxide 29.0, Anion Gap 4 L, BUN 26 H, Creatinine 1.22 H, Estim Creat Clear Calc 35.88, Est GFR (MDRD) Af Amer 55 L, Est GFR (MDRD) Non-Af 45 L, BUN/Creatinine Ratio 21.3 H, Glucose 77, Calcium 9.3, Total Bilirubin 0.40, AST 34, ALT 22, Alkaline Phosphatase 79, Total Protein 7.2, Albumin 2.0 L, Globulin 5.2 H, Albumin/Globulin Ratio 0.4 L 10/23/23 06:48: POC Glucose 86 Micro: Microbiology 10/22/23 17:15 Mucosa - Nose Respiratory Panel (PCR) - Final 10/22/23 13:47 Urine Catheter - Catheter Legionella Antigen - Final 10/22/23 13:47 Urine Catheter - Catheter Streptococcus pneumoniae Antigen (M - Final Imaging Radiology Impression Chest X-Ray 10/22/23 13:06 IMPRESSION: Right middle lobe consolidation with blunting of the right costophrenic angle. Increased markings at the left lung base. Radiographic follow-up is recommended. Electronically Signed: Andrew Merino MD at 14:04 EDT , Chest CTA 10/22/23 14:00 IMPRESSION: Diffuse bilateral pulmonary consolidation as described. Small bilateral pleural effusions right greater than left. Bronchial dilatation in the right lower lobe with air-fluid within the bronchi. Status post cholecystectomy with pneumobilia in the biliary ducts. Electronically Signed: Andrew Merino MD at 14:36 EDT , Charges/Coding Visit Charges Inpatient E&M: 22862 Init Hosp L3
--- NOTE | 2023-10-23 07:56 | PN.HOSP_ITS ---
Reason for Visit Reason for Visit: Diagnoses Pneumonia, unspecified organism (10/22/23) Objective Data Objective Data Vital Signs: Vital Signs Temp Pulse Resp BP Pulse Ox O2 Del Method O2 Flow Rate 98.2 F 84 30 H 134/64 H 90 Airvo 60 10/23/23 03:25 10/23/23 05:41 10/23/23 05:41 10/23/23 03:25 10/23/23 05:41 10/23/23 05:52 10/22/23 22:14 FiO2 90 10/23/23 05:52 Oxygen Flow Rate (L/min) 60 Oxygen Delivery Method Airvo Weight: 184 lb 8.43 oz Body Mass Index (BMI) 36.0 Intake & Output: Intake and Output for Last 24 Hours 10/21/23 10/22/23 10/23/23 23:59 23:59 23:59 Intake Total 470 / 670 878.75 / 878.75 Output Total 400 / 400 Balance 470 / 670 478.75 / 478.75 Lab / Micro Data 10/23/23 06:27 10/23/23 06:27 Labs: Laboratory Results - last 24 hr 10/22/23 12:45: WBC 10.1, RBC 3.76 L, Hgb 10.5 L, Hct 33.5 L, MCV 89.1, MCH 27.9, MCHC 31.3 L, RDW Std Deviation 50.3 H, RDW Coeff of Umu 15.4 H, Plt Count 275, MPV 10.2, Immature Gran % (Auto) 0.400, Neut % (Auto) 83.8 H, Lymph % (Auto) 10.6 L, [place] % (Auto) 4.7, Eos % (Auto) 0.3, Baso % (Auto) 0.2, Absolute Neuts (auto) 8.4 H, Absolute Lymphs (auto) 1.07, Nucleated RBC % 0, PT 14.0, INR 1.1, APTT 30.6, Sodium 137, Potassium 4.5, Chloride 101, Carbon Dioxide 31.0, Anion Gap 5, BUN 30 H, Creatinine 1.49 H, Estim Creat Clear Calc 37.75, Est GFR (MDRD) Af Amer 43 L, Est GFR (MDRD) Non-Af 36 L, BUN/Creatinine Ratio 20.1 H, G lucose 122 H, Lactic Acid 1.2, Calcium 9.0, Total Bilirubin 0.70, AST 35, ALT 23, Alkaline Phosphatase 77, Troponin I High Sens 15, B-Natriuretic Peptide 284.0 H, Total Protein 7.6, Albumin 2.2 L, Globulin 5.4 H, Albumin/Globulin Ratio 0.4 L, Procalcitonin 0.08 10/22/23 13:47: Urine Color Yellow, Urine Clarity Cloudy, Urine pH 6.0, Ur Specific [place] 1.015, Urine Protein 30 H, Urine Glucose (UA) Normal, Urine Ketones Negative, Urine Occult Blood 10 H, Urine Nitrite Negative, Urine Bilirubin Negative, Urine Urobilinogen 1 H, Ur Leukocyte Esterase 100 H, Urine RBC 0-5 SEEN, Urine WBC 5-10 SEEN, Ur Squamous Epith Cells 0 SEEN, Ur Renal Epithelial Cell 0-5 SEEN, Urine Bacteria 3+, Urine Mucus 0 SEEN 10/22/23 18:43: POC Glucose 128 H 10/22/23 21:59: POC Glucose 137 H 10/22/23 22:20: MRSA (PCR) Negative 10/23/23 06:27: WBC 9.5, RBC 3.77 L, Hgb 10.5 L, Hct 33.5 L, MCV 88.9, MCH 27.9, MCHC 31.3 L, RDW Std Deviation 49.3 H, RDW Coeff of Umu 15.1 H, Plt Count 277, MPV 10.0, Immature Gran % (Auto) 0.300, Neut % (Auto) 81.5 H, Lymph % (Auto) 12.4 L, [place] % (Auto) 4.3, Eos % (Auto) 1.3, Baso % (Auto) 0.2, Absolute Neuts (auto) 7.7, Absolute Lymphs (auto) 1.18, Nucleated RBC % 0, Sodium 136, Potassium 4.3, Chloride 103, Carbon Dioxide 29.0, Anion Gap 4 L, BUN 26 H, C reatinine 1.22 H, Estim Creat Clear Calc 35.88, Est GFR (MDRD) Af Amer 55 L, Est GFR (MDRD) Non-Af 45 L, BUN/Creatinine Ratio 21.3 H, Glucose 77, Calcium 9.3, Total Bilirubin 0.40, AST 34, ALT 22, Alkaline Phosphatase 79, Total Protein 7.2, Albumin 2.0 L, Globulin 5.2 H, Albumin/Globulin Ratio 0.4 L 10/23/23 06:48: POC Glucose 86 Micro: Microbiology 10/22/23 17:15 Mucosa - Nose Respiratory Panel (PCR) - Final 10/22/23 13:47 Urine Catheter - Catheter Legionella Antigen - Final 10/22/23 13:47 Urine Catheter - Catheter Streptococcus pneumoniae Antigen (M - Final Radiography Diagnostic Testing: Radiology Impression Chest X-Ray 10/22/23 13:06 IMPRESSION: Right middle lobe consolidation with blunting of the right costophrenic angle. Increased markings at the left lung base. Radiographic follow-up is recommended. Electronically Signed: Andrew Merino MD at 14:04 EDT , Chest CTA 10/22/23 14:00 IMPRESSION: Diffuse bilateral pulmonary consolidation as described. Small bilateral pleural effusions right greater than left. Bronchial dilatation in the right lower lobe with air-fluid within the bronchi. Status post cholecystectomy with pneumobilia in the biliary ducts. Electronically Signed: Andrew Merino MD at 14:36 EDT , Physical Exam Narrative Patient is states she has chronic mild cough and a lot of drainage for which she uses Flonase which probably is chronic allergic rhinitis/pharyngitis. She is also on oxygen at night for sleep apnea but does not use a CPAP or BiPAP probably could not tolerate it. About a week ago last Sunday she started having more cough, sputum production short of breath and tired, dyspnea on exertion. Denies fever. Her urine was also dark yellow. Denies chest pain. Physical exam General: Alert, Oriented x3, Cooperative. Fatigue. BMI 36.0 kg/m? HEENT: Atraumatic, PERRLA, EOMI, Normocephalic Oral: No Gingival or Mucosal Lesions/ Ulcerations Neck: Supple, No JVD, Negative Carotid Bruits Chest wall/Lungs: On Airvo. Air entry diminished in bilateral lungs. Bilateral diffuse crepitations in all lung dietz Cardiovascular: Regular rate, Regular Rhythm, Normal S1, Normal S2, aortic stenosis murmur., Grade 4/6 Abdomen: Bowel Sounds Present, Soft, Non Tender, Non-Distended : No dysuria. No renal angle tenderness. No suprapubic tenderness. Extremities: No edema, Capillary Refill Less than 3 Seconds Skin: No rashes, No breakdown Musculoskeletal: No Tenderness to Palpation of Joints or Extremities. Diffuse arthritis of knees. Neurological: Cranial nerves II-XII grossly intact, DTR 2+/4. No acute focal neurological deficit. Psych/Mental Status: Flat affect Assessment & Plan Assessment/Plan (1) Pneumonia: PLAN: Plan The patient is a 78 y/o F was admitted with a week history of increasing productive cough, shortness of breath, myalgia fatigue and dyspnea at rest but no fever or chest pain. At baseline, she uses oxygen at night for sleep #1. Acute hypoxic respiratory failure with chronic hypoxic respiratory failure: Patient is being admitted in PCU. Overnight she was started on BiPAP as she was in respiratory distress, could not breathe and when could not tolerate BiPAP she was switched to Airvo. In the morning she is little comfortable on Airvo but is still short of breath on conversation. Bottom Ironer is consulted. Chest CTA individually reviewed and did not show PE but diffuse bilateral pulmonary consolidation with a small bilateral pleural effusion right greater than left. Bronchial dilatation in the right lower lobe with air-fluid level within bronchi. Plan: Antibiotic upgraded from Rocephin to Zosyn. Continue azithromycin. Continue Airvo support. Pulmonary consulted for further opinion and recommendation #2. Bilateral eye discharge, suspected likely recent viral syndrome with now superimposed bacterial infection as noted #1 with bilateral conjunctivitis: Will initiate bilateral erythromycin ointment. #3. WENDY on chronic Kidney Disease Stage 2: Admission BUN/Cr 30/1.49, GFR 36, baseline renal function previously 0.8-1.0. Admitted with increasing creatinine 1.5 times the baseline. Creatinine decreased to 1.22 today. #4. Bacteriuria, asymptomatic: Patient denies any urinary symptoms, urinalysis with negative nitrite, however leukocyte Estrace 100 with urine to BCs 5-10 with 3+ urine bacteria, urine culture pending per ED, as noted given presentation maintained on IV Rocephin therapy. #5. PAF: Patient not in atrial fibrillation, will continue patient home atenolol regimen, per current list does not appear to be chronically anticoagulated. #6. 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 #7. Hypertension: Continue home regimen including atenolol, losartan although given renal insufficiency low threshold to hold if renal function worsens, PRN hydralazine. #8. Hyperlipidemia: Per current list does not appear to be on statin therapy but clarifying. #9. Hx VTE: Per current list does not appear to be chronically anticoagulated, previous history DVT, PE noted. #10. Chronic anemia/Fe deficiency anemia: Admission hemoglobin 10.5, MCV 89.1, baseline hemoglobin appears remotely 8-9, last labs noted 2021, unclear recent baseline, will continue to trend CBC, will continue home iron supplementation regimen. #11. Diabetes mellitus type II with chronic neuropathy and Hx diabetic wounds: Hold oral home regimen, ADA diet, accu checks w/ ISS. Per current list does not appear to be on any Lyrica or gabapentin but clarifying. #12. SOPHIE: Uses nightly oxygen secondary to CPAP mask intolerance. #13. Anxiety and depression: We will continue patient home sertraline regimen. #14. Hypothyroidism: We will continue patient on levothyroxine regimen. #15. GERD: We will continue patient home PPI. #16. Obesity: Weight loss and lifestyle changes encouraged. #17. DVT prophylaxis: Lovenox. #18. CODE status: Patient KANA is her Sister Francine and living will is currently in place. Discussed CODE status at length including difference between FULL code, DNR-CCA and DNR-CC status. Following discussions about the differences in these status, requested DNR-CCA, no intubation status, no aggressive measures including no central line or pressor therapy. She is willing to use airvo and BIPAP. Advanced Care Planning Face to Face Time: 16 minutes.
--- NOTE | 2023-10-23 09:29 | RAD_ITS ---
STUDY: X-RAY CHEST REASON FOR EXAM: Female, 78 years old. Respiratory Failure TECHNIQUE: Single AP portable view of the chest. COMPARISON: Comparison is made with prior study dated October 22, 2023. FINDINGS: EKG electrodes are seen. Persistent right middle lobe consolidation. Patchy infiltrate in the left lower lobe with blunting of both costophrenic angles worse on the right side. Normal size heart. Normal mediastinum and pako. Normal visualized pulmonary arteries. There is atherosclerotic calcification of the aortic arch with tortuosity. There is a levoscoliosis of the thoracic spine. Normal visualized ribs, clavicles, and shoulders. There is no demonstrated abnormality of the visualized soft tissue structures of the upper abdomen. RAD/Chest 1 View (Portable) IMPRESSION: Stable examination. Electronically Signed: Andrew Merino MD at 12:28 EDT ,
[2023-10-23] MEDS: Atenolol 50 MG Tablet PO (10:33)
[2023-10-23] MEDS: Ferrous Sulfate 325 MG Tablet PO (10:34)
[2023-10-23] MEDS: Aspirin E.C. 81 MG Tablet PO (10:34)
[2023-10-23] MEDS: Nystatin Powder 15gm Bottle 1 APPLIC TOPICAL ×2 (10:34→21:32)
[2023-10-23] MEDS: Enoxaparin 40 MG/0.4 ML Syringe SC (10:34)
[2023-10-23] MEDS: Sertraline 50 MG Tablet PO (10:34)
[2023-10-23] MEDS: Erythromycin Base 1 OPTH.TUBE 1 APPLIC EACH EYE ×4 (10:35→21:32)
[2023-10-23] MEDS: Pantoprazole Sodium 20 MG Tablet PO (10:47)
[2023-10-23] MEDS: Azithromycin 500 MG in Dextrose 5%-Water (250mL Bag) 250 ML 250 MG IV (10:55)
[2023-10-23] MEDS: Insulin Lispro 100 UNIT/ML INSULN.PEN SC ×3 (11:18→21:31)
[2023-10-23 11:29] LABS: Bedside Glucose 185 mg/dL (74-106)
--- NOTE | 2023-10-23 12:43 | CASEMGMT ---
EDNA OBREGON Assessment Face to Face with patient for initial transition planning/care coordination assessment. EDNA OBREGON introduced self and role at [facility], pt voices understanding. Pt is A&Ox4 and is resting comfortably in bed and is calm. Care providers, pharmacy, and demographics verified. Admitting dx: Pneumonia, Acute Hypoxia LACE Strata: 2 PCP: Elinor Specialists: [facility] Preferred Pharmacy: [facility] Insurance: [employer] [facility] Prescription Benefit: Yes LNOK: Norah Weiner (Sister), Alannah Cleaning (Niece) Living Arrangements: Pt lives alone in a second floor apartment with a ramp to enter. ADLs/IADLs: [place] [employer] Transportation: Pt does not drive. Pt states that her sister and friends provide her with transportation. DME: Home oxygen through [employer]. Confirmed 2L @ HS only. Pt has a concentrator and a pulse ox. Pt does not have any portable tanks. Pt also has a BGM and supplies. Shower chair. Raised toilet seat. FWW. Medical Alert. Denies further needs. HHC/SNF: Hx with [facility] HH. Pt is active with [facility] Pt?s goal: Return to PLOF Plan: TBD. Anticipate SNF vs Home with skilled HHC. 6-Click is 18. PT/OT/ST evaluations are pending. Pt states that she is willing to partake in addition rehabilitation if warranted. SABAS and SW to follow. Jerrica Cary RN, CM
--- NOTE | 2023-10-23 13:03 | CASEMGMT ---
Social Work Both Living Will and POA for healthcare are scanned into [place], Norah Weiner, pt's sister is listed as pt's healthcare POA. OPAL Carcamo
[2023-10-23] MEDS: Piperacil/Tazobactam 3.375 GM in 0.9% Normal Saline (50mL MB+) 50 ML IV ×2 (13:18→21:32)
[2023-10-23] MEDS: Losartan Potassium 100 MG Tablet PO (13:19)
[2023-10-23] MEDS: 0.9% Saline Lock 10 ML Syringe IV ×2 (17:00→21:38)
[2023-10-23 17:21] LABS: Bedside Glucose 318 mg/dL (74-106)
[2023-10-23] MEDS: Atorvastatin Calcium 20 MG Tablet PO (21:38)
[2023-10-23 22:07] LABS: Bedside Glucose 340 mg/dL (74-106)
[2023-10-24] VITALS (13 sets, daily range): BP systolic 127–133; BP diastolic 57–85; PULSE 57–77; RESP 17–28; TEMP 36.4–36.7; O2SAT 80–97
[2023-10-24 06:08] LABS: Absolute Lymphocyte Count 0.43 X10^3/uL (0.83-4.51); Basophil# 0.01 X10^3/uL; Basophil% 0.2 % (0-1); Hematocrit 33.9 % (37-47); Hemoglobin 10.6 g/dL (12.0-15.0); Lymphocyte # 0.43 X10^3/ul (0.83-4.51); Lymphocyte % 7.6 % (19-41); Mean Corp Hgb Conc 31.3 g/dL (32-36); Mean Corpuscular Hgb 27.6 pg (27.0-32.0); Mean Corpuscular Volume 88.3 fL (81-99); Mean Platelet Vol. 10.2 fl (6.2-12.0); Monocyte# 0.19 X10^3/uL; Monocyte% 3.4 % (0-10); NRBC Flagged by Analyzer 0 % (0-5); Neutrophil # 5.02 X10^3/uL (2.7-7.7); Neutrophil % 88.4 % (47-70); POSITIVE DIFFERENTIAL YES; Platelet Count 297 K/mm3 (150-450); RBC Distribution Width CV 14.7 % (11.6-14.6); RBC Distribution Width SD 47.5 fl (35.1-43.9); Red Blood Count 3.84 M/mm3 (4.2-5.4); White Blood Count 5.7 K/mm3 (4.4-11.0)
[2023-10-24 06:32] LABS: Anion Gap 5 (5-15); BUN 34 mg/dL (7-18); BUN/Creat Ratio 24.5 RATIO (10-20); Calcium,Total 9.6 mg/dL (8.5-10.1); Chloride 103 mmol/L (98-107); Creatinine, Serum 1.39 mg/dL (0.55-1.02); EST Glomerular Filtration Rate 39 mL/min (>60); Est Glom Filt Rate - Afr Amer 47 mL/min (>60); Estimated Creatinine Clearance 31.49 ml/min; Glucose 305 mg/dL (74-106); Potassium 4.9 mmol/L (3.5-5.1); Sodium Level 136 mmol/L (136-145)
[2023-10-24] MEDS: Levothyroxine 125 MCG Tablet PO (06:33)
[2023-10-24] MEDS: Insulin Lispro 100 UNIT/ML INSULN.PEN SC ×4 (06:33→22:15)
[2023-10-24] MEDS: Piperacil/Tazobactam 3.375 GM in 0.9% Normal Saline (50mL MB+) 50 ML IV ×3 (06:33→22:17)
[2023-10-24 07:08] LABS: Bedside Glucose 280 mg/dL (74-106)
--- NOTE | 2023-10-24 08:09 | PCM.PN.INT ---
Assessment & Plan Assessment/Plan (1) Acute hypoxemic respiratory failure: PLAN: Plan RECOMMENDATIONS: 1. Supplemental oxygen to maintain saturations at or above 90%. 2. Given tenuous respiratory status, will initiate remdesivir and continue steroids. 3. Recommend continuing empiric antimicrobials as well. 4. Intermittent Lasix to maintain euvolemic state. 5. Continue aggressive bronchopulmonary hygiene. 6. Continue Lovenox for DVT prophylaxis. IMPRESSIONS: 1. Acute hypoxemic respiratory failure Most likely multifactorial in etiology. The patient screened positive for COVID-19 and likely has secondary bacterial pneumonia as well. In addition, I cannot discount the possibility of an underlying component of heart failure with preserved ejection fraction. Given the patient's tenuous respiratory status, she will be initiated on remdesivir and continued on corticosteroids. In addition, recommend continuing broad-spectrum antimicrobials as ordered. Intermittent utilization of diuretics will be considered to maintain euvolemic state. Otherwise, continue supplemental oxygen to maintain saturations at or above 90%. Continue aggressive bronchopulmonary hygiene along with Lovenox for DVT prophylaxis. 2. History of paroxysmal atrial fibrillation/history of CVA/valvular heart disease/heart failure preserved ejection fraction/hypertension/hyperlipidemia Complicates care, management, recovery and prognosis. Continue home medications as indicated. This note was generated with [employer] dictation software. It may contain incorrect words, spelling, and punctuation that were not noted in checking the note before signing. Subjective Subjective The patient was seen and examined at the bedside this morning. Events from the last 24 hours have been reviewed. The patient is currently afebrile, hemodynamically stable and maintaining appropriate oxygen saturations on 5 L/min via nasal cannula. The patient tested positive for COVID-19 yesterday. Despite this, her respiratory status/oxygenation requirements have improved over the last 24 hours. The patient remains on steroids and antimicrobials. White count is normal this morning. Creatinine is stable at 1.39. The patient does readily desaturate with any form of physical exertion. Objective Data Objective Data The patient's most recent lab work, culture data and imaging studies have all been personally reviewed. 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 COVID-19 PCR was positive on October 22. Vital Signs: Vital Signs Temp Pulse Resp BP Pulse Ox O2 Del Method O2 Flow Rate 97.8 F 70 18 127/85 H 97 High Flow 5 10/24/23 03:10 10/24/23 03:10 10/24/23 03:10 10/24/23 03:10 10/24/23 03:10 10/24/23 03:20 10/24/23 03:20 FiO2 74 10/23/23 20:47 Oxygen Flow Rate (L/min) 5 Oxygen Delivery Method High Flow Weight: 184 lb 8.43 oz Body Mass Index (BMI) 36.0 Intake & Output: Intake and Output for Last 24 Hours 10/22/23 10/23/23 10/24/23 23:59 23:59 23:59 Intake Total 470 / 670 1903.75 / 1903.75 50 / 50 Output Total 2400 / 2400 Balance 470 / 670 -496.25 / -496.25 50 / 50 Lab / Micro Data Attestation: I reviewed the patient's lab results. 10/24/23 05:32 10/24/23 05:32 Labs: Laboratory Results - last 24 hr 10/23/23 10:58: POC Glucose 185 H 10/23/23 16:41: POC Glucose 318 H 10/23/23 21:29: POC Glucose 340 H 10/24/23 05:32: WBC 5.7, RBC 3.84 L, Hgb 10.6 L, Hct 33.9 L, MCV 88.3, MCH 27.6, MCHC 31.3 L, RDW Std Deviation 47.5 H, RDW Coeff of Umu 14.7 H, Plt Count 297, MPV 10.2, Immature Gran % (Auto) 0.400, Neut % (Auto) 88.4 H, Lymph % (Auto) 7.6 L, [place] % (Auto) 3.4, Eos % (Auto) 0.0, Baso % (Auto) 0.2, Absolute Neuts (auto) 5.0, Absolute Lymphs (auto) 0.43 L, Nucleated RBC % 0, Sodium 136, Potassium 4.9, Chloride 103, Carbon Dioxide 28.0, Anion Gap 5, BUN 34 H, Creatinine 1.39 H, Estim Creat Clear Calc 31.49, Est GFR (MDRD) Af Amer 47 L, Est GFR (MDRD) Non-Af 39 L, BUN/Creatinine Ratio 24.5 H, Glucose 305 H, Calcium 9.6 10/24/23 06:32: POC Glucose 280 H Micro: Microbiology 10/22/23 13:47 Urine Catheter - Catheter Urine Culture - Preliminary 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 Electronically Signed: Andrew Merino MD at 12:28 EDT , Physical Exam Const alert and no apparent distress Constitutional Narrative: Sitting in bedside recliner. General Appearance: cooperative HEENT normocephalic and head/scalp atraumatic Eyes PERRL, EOMs intact bilaterally and conjunctivae normal Neck supple General: trachea midline Chest inspection of chest normal Resp normal respiratory effort and no use of accessory muscles Auscultation: diminished lung sounds Cardio regular rate and regular rhythm Heart Sounds: murmur GI normal to inspection, nondistended, normoactive bowel sounds Extremity no clubbing, cyanosis or edema Skin no rashes or lesions noted Neuro oriented x3, CN's II-XII intact bilaterally and moves all extremities Psych cooperative and affect normal Charges/Coding Visit Charges Inpatient E&M: 25168 Subs Hosp L3
[2023-10-24] MEDS: Sertraline 50 MG Tablet PO (09:13)
[2023-10-24] MEDS: Losartan Potassium 100 MG Tablet PO (09:13)
[2023-10-24] MEDS: Aspirin E.C. 81 MG Tablet PO (09:13)
[2023-10-24] MEDS: Atenolol 50 MG Tablet PO (09:13)
[2023-10-24] MEDS: Azithromycin 500 MG in Dextrose 5%-Water (250mL Bag) 250 ML 250 MG IV (09:14)
[2023-10-24] MEDS: Nystatin Powder 15gm Bottle 1 APPLIC TOPICAL ×2 (09:14→22:18)
[2023-10-24] MEDS: Enoxaparin 40 MG/0.4 ML Syringe SC (09:14)
[2023-10-24] MEDS: Erythromycin Base 1 OPTH.TUBE 1 APPLIC EACH EYE ×4 (09:14→22:17)
[2023-10-24 10:04] LABS: Alkaline Phosphatase 81 U/L (45-117)
[2023-10-24] MEDS: Remdesivir 200 MG IV x1 (Inital Dose)-All Patients 125 MG IV (10:58)
[2023-10-24] MEDS: guaiFENesin/D-Methorphan TAB.SR.12H 2 TABLET PO ×2 (10:59→22:16)
[2023-10-24] MEDS: Polyethylene Glycol 3350 17 GM PACKET PO ×2 (10:59→22:18)
[2023-10-24 11:28] LABS: Bedside Glucose 285 mg/dL (74-106)
[2023-10-24] MEDS: Senna/Docusate Sodium 1 Tablet 2 TABLET PO ×2 (14:17→22:16)
--- NOTE | 2023-10-24 14:57 | PCM.PN.HOSP ---
Reason for Visit Reason for Visit: Diagnoses Pneumonia, unspecified organism (10/22/23) Acute respiratory failure with hypoxia (10/22/23) Objective Data Objective Data Vital Signs: Vital Signs Temp Pulse Resp BP Pulse Ox O2 Del Method O2 Flow Rate 97.5 F L 57 L 24 H 128/57 H 94 High Flow 10 10/24/23 09:57 10/24/23 09:57 10/24/23 09:57 10/24/23 09:57 10/24/23 11:52 10/24/23 14:24 10/24/23 14:24 FiO2 74 10/23/23 20:47 Oxygen Flow Rate (L/min) 10 Oxygen Delivery Method High Flow Weight: 184 lb 8.43 oz Body Mass Index (BMI) 36.0 Intake & Output: Intake and Output for Last 24 Hours 10/22/23 10/23/23 10/24/23 23:59 23:59 23:59 Intake Total 470 / 670 1903.75 / 1903.75 355 / 355 Output Total 2400 / 2400 Balance 470 / 670 -496.25 / -496.25 355 / 355 Lab / Micro Data 10/24/23 05:32 10/24/23 05:32 Labs: Laboratory Results - last 24 hr 10/23/23 16:41: POC Glucose 318 H 10/23/23 21:29: POC Glucose 340 H 10/24/23 05:32: WBC 5.7, RBC 3.84 L, Hgb 10.6 L, Hct 33.9 L, MCV 88.3, MCH 27.6, MCHC 31.3 L, RDW Std Deviation 47.5 H, RDW Coeff of Umu 14.7 H, Plt Count 297, MPV 10.2, Immature Gran % (Auto) 0.400, Neut % (Auto) 88.4 H, Lymph % (Auto) 7.6 L, [place] % (Auto) 3.4, Eos % (Auto) 0.0, Baso % (Auto) 0.2, Absolute Neuts (auto) 5.0, Absolute Lymphs (auto) 0.43 L, Nucleated RBC % 0, Sodium 136, Potassium 4.9, Chloride 103, Carbon Dioxide 28.0, Anion Gap 5, BUN 34 H, Creatinine 1.39 H, Estim Creat Clear Calc 31.49, Est GFR (MDRD) Af Amer 47 L, Est GFR (MDRD) Non-Af 39 L, BUN/Creatinine Ratio 24.5 H, Glucose 305 H, Calcium 9.6, Alkaline Phosphatase 81 10/24/23 06:32: POC Glucose 280 H 10/24/23 11:08: POC Glucose 285 H Micro: Microbiology 10/22/23 13:47 Urine Catheter - Catheter Urine Culture - Final Escherichia coli 10/23/23 08:55 Mucosa - Nasopharyngeal Coronavirus COVID-19 PCR - Final SARS-CoV-2 (COVID 19 PCR) 10/22/23 17:15 Mucosa - Nose Respiratory Panel (PCR) - Final 10/22/23 13:47 Urine Catheter - Catheter Legionella Antigen - Final 10/22/23 13:47 Urine Catheter - Catheter Streptococcus pneumoniae Antigen (M - Final Physical Exam Narrative Seen and examined. Shortness of breath overnight has improved but oxygenation status still fluctuates. Patient is COVID-19 positive. Physical exam General: Alert, Oriented x3, Cooperative. Fatigue. BMI 36.0 kg/m? HEENT: Atraumatic, PERRLA, EOMI, Normocephalic Oral: No Gingival or Mucosal Lesions/ Ulcerations Neck: Supple, No JVD, Negative Carotid Bruits Chest wall/Lungs: Air entry better than yesterday. On high flow oxygen. On Airvo and BiPAP yesterday. Bilateral diffuse crepitations in all lung dietz Cardiovascular: Regular rate, Regular Rhythm, Normal S1, Normal S2, aortic stenosis murmur., Grade 4/6 Abdomen: Bowel Sounds Present, Soft, Non Tender, Non-Distended : No dysuria. No renal angle tenderness. No suprapubic tenderness. Extremities: No edema, Capillary Refill Less than 3 Seconds Skin: No rashes, No breakdown Musculoskeletal: No Tenderness to Palpation of Joints or Extremities. Diffuse arthritis of knees. Neurological: Cranial nerves II-XII grossly intact, DTR 2+/4. No acute focal neurological deficit. Psych/Mental Status: Flat affect Assessment & Plan Assessment/Plan (1) Pneumonia: PLAN: Plan The patient is a 78 y/o F was admitted with a week history of increasing productive cough, shortness of breath, myalgia fatigue and dyspnea at rest but no fever or chest pain. At baseline, she uses oxygen at night for sleep #1. Acute hypoxic respiratory failure with chronic hypoxic respiratory failure: Patient is being admitted in PCU. Overnight she was started on BiPAP as she was in respiratory distress, could not breathe and when could not tolerate BiPAP she was switched to Airvo. In the morning she is little comfortable on Airvo but is still short of breath on conversation. Aluminum Pourer is consulted. Chest CTA individually reviewed and did not show PE but diffuse bilateral pulmonary consolidation with a small bilateral pleural effusion right greater than left. Bronchial dilatation in the right lower lobe with air-fluid level within bronchi. Plan: Antibiotic upgraded from Rocephin to Zosyn. Continue azithromycin. Continue Airvo support. Pulmonary consulted for further opinion and recommendation 10/23: PCR COVID positive. Patient did not had leukocytosis but WBC count improved. No thrombocytopenia. Relative lymphopenia, and 0.43 thousand. Patient on IV steroid. Intermittent Lasix recommended by private branch exchange service adviser to maintain euvolemic status. Discussed with the nursing staff to continue Airvo as patient is on 10 to 14 L high flow oxygen #2. Bilateral eye discharge, suspected likely recent viral syndrome with now superimposed bacterial infection as noted #1 with bilateral conjunctivitis: bilateral erythromycin ointment. #3. WENDY on chronic Kidney Disease Stage 2: Admission BUN/Cr 30/1.49, GFR 36, baseline renal function previously 0.8-1.0. Admitted with increasing creatinine 1.5 times the baseline. Creatinine decreased to 1.22 today. #4. Bacteriuria, asymptomatic: Patient denies any urinary symptoms, urinalysis with negative nitrite, however LE 100 with urine to BCs 5-10 with 3+ urine bacteria, urine culture pending. 10/23 urine culture shows E. coli [id number]. Not in pathology currently therefore not UTI but patient on IV antibiotic. #5. PAF: Patient not in atrial fibrillation, continue patient home atenolol regimen. Not on anticoagulation. 6. Hypertension: Continue home regimen including atenolol, losartan although given renal insufficiency low threshold to hold if renal function worsens, PRN hydralazine. 7. 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 Not on statin. Fasting profile ordered. Patient also has history of VTE. Not chronically anticoagulated. 8. Chronic anemia/Fe deficiency anemia: Admission hemoglobin 10.5, MCV 89.1, baseline hemoglobin appears remotely 8-9, last labs noted 2021, unclear recent baseline, 9. Diabetes mellitus type II with chronic neuropathy and Hx diabetic wounds: Hold oral home regimen, ADA diet, accu checks w/ ISS. 10. Multiple other comorbidities include hypothyroidism, GERD, anxiety and depression. 11. Obesity grade 2: BMI 36.60 kg prescribed DVT prophylaxis: Lovenox. #18. CODE status: Patient KANA is her Sister Francine and living will is currently in place. Discussed CODE status at length including difference between FULL code, DNR-CCA and DNR-CC status. Following discussions about the differences in these status, requested DNR-CCA, no intubation status, no aggressive measures including no central line or pressor therapy. She is willing to use airvo and BIPAP. Microbiology Past 72 Hours 10/22/23 13:47 Urine Catheter - Catheter Urine Culture - Final Escherichia coli 10/23/23 08:55 Mucosa - Nasopharyngeal Coronavirus COVID-19 PCR - Final SARS-CoV-2 (COVID 19 PCR) 10/22/23 17:15 Mucosa - Nose Respiratory Panel (PCR) - Final 10/22/23 13:47 Urine Catheter - Catheter Legionella Antigen - Final 10/22/23 13:47 Urine Catheter - Catheter Streptococcus pneumoniae Antigen (M - Final Laboratory Results 10/23/23 16:41: POC Glucose 318 H 10/23/23 21:29: POC Glucose 340 H 10/24/23 05:32: WBC 5.7, RBC 3.84 L, Hgb 10.6 L, Hct 33.9 L, MCV 88.3, MCH 27.6, MCHC 31.3 L, RDW Std Deviation 47.5 H, RDW Coeff of Umu 14.7 H, Plt Count 297, MPV 10.2, Immature Gran % (Auto) 0.400, Neut % (Auto) 88.4 H, Lymph % (Auto) 7.6 L, [place] % (Auto) 3.4, Eos % (Auto) 0.0, Baso % (Auto) 0.2, Absolute Neuts (auto) 5.0, Absolute Lymphs (auto) 0.43 L, Nucleated RBC % 0, Sodium 136, Potassium 4.9, Chloride 103, Carbon Dioxide 28.0, Anion Gap 5, BUN 34 H, Creatinine 1.39 H, Estim Creat Clear Calc 31.49, Est GFR (MDRD) Af Amer 47 L, Est GFR (MDRD) Non-Af 39 L, BUN/Creatinine Ratio 24.5 H, Glucose 305 H, Calcium 9.6, Alkaline Phosphatase 81 10/24/23 06:32: POC Glucose 280 H 10/24/23 11:08: POC Glucose 285 H Clinical Impression(s) from Imaging Studies Chest X-Ray 10/22/23 13:06 IMPRESSION: Right middle lobe consolidation with blunting of the right costophrenic angle. Increased markings at the left lung base. Radiographic follow-up is recommended. Electronically Signed: Andrew Merino MD at 14:04 EDT , Chest CTA 10/22/23 14:00 IMPRESSION: Diffuse bilateral pulmonary consolidation as described. Small bilateral pleural effusions right greater than left. Bronchial dilatation in the right lower lobe with air-fluid within the bronchi. Status post cholecystectomy with pneumobilia in the biliary ducts. Electronically Signed: Andrew Merino MD at 14:36 EDT , Chest X-Ray 10/23/23 09:29 IMPRESSION: Stable examination. Electronically Signed: Andrew Merino MD at 12:28 EDT , Charges/Coding Addendum Addendum: Total time of the visit including total time spent in counseling or coordination of care, (more than 50% of the total time, spent in obtaining medical information from nurses and other ancillary care providers,explaining to the patient about labs, imaging, diagnosis and management of active complex medical conditions), management of severe acute hypoxic respiratory failure, diffuse bilateral pneumonia, COVID 19 with secondary bacterial infection, review of labs and imaging and discussion with private branch exchange service adviser is 40 minutes. Visit Charges Inpatient E&M: 89395 Subs Hosp L3
--- NOTE | 2023-10-24 15:58 | CASEMGMT ---
Discharge Planning A list of?SNF providers including quality and resource use data and consistent with the patient's preferred geographic region, medical needs, and insurance network was created in [facility] [facility].? This list was provided to the SW. Brenna Starkey Discharge Planning Asst.
[2023-10-24 16:59] LABS: Bedside Glucose 198 mg/dL (74-106)
--- NOTE | 2023-10-24 22:09 | CPS ---
Patient refused PAP therapy, on airvo 45L 85% spo2 is 95%
[2023-10-24] MEDS: 0.9% Saline Lock 10 ML Syringe IV (22:16)
[2023-10-24] MEDS: Atorvastatin Calcium 20 MG Tablet PO (22:17)
[2023-10-24 23:17] LABS: Bedside Glucose 236 mg/dL (74-106)
[2023-10-25] VITALS (10 sets, daily range): BP systolic 124–159; BP diastolic 57–74; PULSE 64–74; RESP 13–24; TEMP 36.1–37; O2SAT 55–97; BMI 35.9
[2023-10-25 05:44] LABS: Absolute Lymphocyte Count 0.59 X10^3/uL (0.83-4.51); Absolute Neutrophil Count 10.5 X10^3/uL (2.0-7.7); Basophil# 0.01 X10^3/uL; Basophil% 0.1 % (0-1); Hematocrit 32.6 % (37-47); Lymphocyte # 0.59 X10^3/ul (0.83-4.51); Lymphocyte % 5.1 % (19-41); Mean Corp Hgb Conc 30.7 g/dL (32-36); Mean Corpuscular Hgb 27.3 pg (27.0-32.0); Mean Corpuscular Volume 89.1 fL (81-99); Mean Platelet Vol. 9.9 fl (6.2-12.0); Monocyte# 0.32 X10^3/uL; Monocyte% 2.8 % (0-10); NRBC Flagged by Analyzer 0 % (0-5); Neutrophil # 10.54 X10^3/uL (2.7-7.7); Neutrophil % 91.4 % (47-70); POSITIVE DIFFERENTIAL YES; Platelet Count 349 K/mm3 (150-450); RBC Distribution Width CV 14.6 % (11.6-14.6); RBC Distribution Width SD 47.4 fl (35.1-43.9); Red Blood Count 3.66 M/mm3 (4.2-5.4); White Blood Count 11.5 K/mm3 (4.4-11.0)
[2023-10-25 06:05] LABS: ALB/GLOB Ratio 0.4 RATIO (0.9-2.4); AST(SGOT) 22 U/L (15-37); Alanine Aminotransfer ALT/SGPT 23 U/L (13-56); Alkaline Phosphatase 75 U/L (45-117); Anion Gap 6 (5-15); BUN 37 mg/dL (7-18); BUN/Creat Ratio 30.6 RATIO (10-20); Calcium,Total 9.5 mg/dL (8.5-10.1); Chloride 104 mmol/L (98-107); Creatinine, Serum 1.21 mg/dL (0.55-1.02); EST Glomerular Filtration Rate 46 mL/min (>60); Est Glom Filt Rate - Afr Amer 55 mL/min (>60); Globulin 4.8 g/dL (2.2-4.2); Glucose 259 mg/dL (74-106); Potassium 4.6 mmol/L (3.5-5.1); Protein, Total 6.8 g/dL (6.4-8.2); Sodium Level 139 mmol/L (136-145)
[2023-10-25] MEDS: 0.9% Saline Lock 10 ML Syringe IV ×2 (06:22→20:47)
[2023-10-25] MEDS: Piperacil/Tazobactam 3.375 GM in 0.9% Normal Saline (50mL MB+) 50 ML IV ×3 (06:23→20:44)
[2023-10-25] MEDS: Levothyroxine 125 MCG Tablet PO (06:23)
[2023-10-25] MEDS: Insulin Lispro 100 UNIT/ML INSULN.PEN SC ×3 (06:25→20:45)
[2023-10-25 06:51] LABS: Bedside Glucose 242 mg/dL (74-106)
--- NOTE | 2023-10-25 08:23 | PN.CC_ITS ---
Assessment & Plan Assessment/Plan (1) Acute hypoxemic respiratory failure: PLAN: Plan RECOMMENDATIONS: 1. Supplemental oxygen to maintain saturations at or above 90%. 2. Continue remdesivir and corticosteroids as ordered. 3. Recommend continuing empiric antimicrobials. 4. Intermittent Lasix to maintain euvolemic state. 5. Continue aggressive bronchopulmonary hygiene. 6. Continue Lovenox for DVT prophylaxis. IMPRESSIONS: 1. Acute hypoxemic respiratory failure Most likely multifactorial in etiology. The patient screened positive for COVID-19 and likely has secondary bacterial pneumonia as well. In addition, I cannot discount the possibility of an underlying component of heart failure with preserved ejection fraction. CTA chest completed on October 21 ruled out PE. The patient will be continued on remdesivir and corticosteroids, along with empiric antibiotics. Intermittent utilization of diuretics will be considered to maintain euvolemic state. Otherwise, continue supplemental oxygen to maintain saturations at or above 90%. Continue aggressive bronchopulmonary hygiene along with Lovenox for DVT prophylaxis. 2. History of paroxysmal atrial fibrillation/history of CVA/valvular heart disease/heart failure preserved ejection fraction/hypertension/hyperlipidemia Complicates care, management, recovery and prognosis. Continue home medications as indicated. This note was generated with [employer] dictation software. It may contain incorrect words, spelling, and punctuation that were not noted in checking the note before signing. Subjective Subjective The patient was seen and examined at the bedside this morning. Events from the last 24 hours have been reviewed. The patient is currently afebrile, hemodynamically stable and maintaining appropriate oxygen saturations on Airvo heated high flow with an FiO2 requirement of 55%. Creatinine is stable at 1.2. The patient remains on antimicrobials, remdesivir and corticosteroids. Objective Data Objective Data The patient's most recent lab work, culture data and imaging studies have all been personally reviewed. Urine culture dated October 21 was positive for pansensitive E. coli. COVID-19 PCR was positive on October 22. Vital Signs: Vital Signs Temp Pulse Resp BP Pulse Ox O2 Del Method O2 Flow Rate 98.1 F 65 20 H 124/74 H 95 Airvo 45 10/25/23 04:14 10/25/23 05:07 10/25/23 05:07 10/25/23 04:14 10/25/23 05:07 10/25/23 08:12 10/24/23 22:00 FiO2 55 10/25/23 08:12 Oxygen Flow Rate (L/min) 45 Oxygen Delivery Method Airvo Weight: 183 lb 13.848 oz Body Mass Index (BMI) 35.9 Intake & Output: Intake and Output for Last 24 Hours 10/23/23 10/24/23 10/25/23 23:59 23:59 23:59 Intake Total 1903.75 / 1903.75 655 / 655 50 / 50 Output Total 2400 / 2400 500 / 500 500 / 500 Balance -496.25 / -496.25 155 / 155 -450 / -450 Lab / Micro Data Attestation: I reviewed the patient's lab results. 10/25/23 05:27 10/25/23 05:27 Labs: Laboratory Results - last 24 hr 10/24/23 05:32: Alkaline Phosphatase 81 10/24/23 11:08: POC Glucose 285 H 10/24/23 16:34: POC Glucose 198 H 10/24/23 22:10: POC Glucose 236 H 10/25/23 05:27: WBC 11.5 H, RBC 3.66 L, Hgb 10.0 L, Hct 32.6 L, MCV 89.1, MCH 27.3, MCHC 30.7 L, RDW Std Deviation 47.4 H, RDW Coeff of Umu 14.6, Plt Count 349, MPV 9.9, Immature Gran % (Auto) 0.600, Neut % (Auto) 91.4 H, Lymph % (Auto) 5.1 L, [place] % (Auto) 2.8, Eos % (Auto) 0.0, Baso % (Auto) 0.1, Absolute Neuts (auto) 10.5 H, Absolute Lymphs (auto) 0.59 L, Nucleated RBC % 0, Sodium 139, Potassium 4.6, Chloride 104, Carbon Dioxide 29.0, Anion Gap 6, BUN 37 H, C reatinine 1.21 H, Estim Creat Clear Calc 36.10, Est GFR (MDRD) Af Amer 55 L, Est GFR (MDRD) Non-Af 46 L, BUN/Creatinine Ratio 30.6 H, Glucose 259 H, Calcium 9.5, Total Bilirubin 0.30, AST 22, ALT 23, Alkaline Phosphatase 75, Total Protein 6.8, Albumin 2.0 L, Globulin 4.8 H, Albumin/Globulin Ratio 0.4 L 10/25/23 06:15: POC Glucose 242 H Micro: Microbiology 10/22/23 13:47 Urine Catheter - Catheter Urine Culture - Final Escherichia coli 10/23/23 08:55 Mucosa - Nasopharyngeal Coronavirus COVID-19 PCR - Final SARS-CoV-2 (COVID 19 PCR) 10/22/23 17:15 Mucosa - Nose Respiratory Panel (PCR) - Final 10/22/23 13:47 Urine Catheter - Catheter Legionella Antigen - Final 10/22/23 13:47 Urine Catheter - Catheter Streptococcus pneumoniae Antigen (M - Final Radiography Diagnostic Testing: Radiology Impression Chest X-Ray 10/23/23 09:29 IMPRESSION: Stable examination. Electronically Signed: Andrew Merino MD at 12:28 EDT , Physical Exam Const alert and no apparent distress General Appearance: cooperative HEENT normocephalic and head/scalp atraumatic Eyes PERRL, EOMs intact bilaterally and conjunctivae normal Neck supple General: trachea midline Chest inspection of chest normal Resp normal respiratory effort and no use of accessory muscles Auscultation: diminished lung sounds Cardio regular rate and regular rhythm Heart Sounds: murmur GI normal to inspection, nondistended, normoactive bowel sounds Extremity no clubbing, cyanosis or edema Skin no rashes or lesions noted Neuro oriented x3, CN's II-XII intact bilaterally and moves all extremities Psych cooperative and affect normal Charges/Coding Visit Charges Inpatient E&M: 68889 Subs Hosp L2
[2023-10-25] MEDS: Ferrous Sulfate 325 MG Tablet PO (10:16)
[2023-10-25] MEDS: Losartan Potassium 100 MG Tablet PO (10:16)
[2023-10-25] MEDS: Aspirin E.C. 81 MG Tablet PO (10:16)
[2023-10-25] MEDS: Sertraline 50 MG Tablet PO (10:16)
[2023-10-25] MEDS: Senna/Docusate Sodium 1 Tablet 2 TABLET PO (10:16)
[2023-10-25] MEDS: Pantoprazole Sodium 20 MG Tablet PO (10:16)
[2023-10-25] MEDS: Enoxaparin 40 MG/0.4 ML Syringe SC (10:16)
[2023-10-25] MEDS: Atenolol 50 MG Tablet PO (10:16)
[2023-10-25] MEDS: Polyethylene Glycol 3350 17 GM PACKET PO (10:17)
--- NOTE | 2023-10-25 11:05 | PN.HOSP_ITS ---
Reason for Visit Reason for Visit: Diagnoses Pneumonia, unspecified organism (10/22/23) Acute respiratory failure with hypoxia (10/22/23) Objective Data Objective Data Vital Signs: Vital Signs Temp Pulse Resp BP Pulse Ox O2 Del Method O2 Flow Rate 98.6 F 68 15 156/65 H 92 Airvo 45 10/25/23 10:00 10/25/23 10:00 10/25/23 10:00 10/25/23 10:00 10/25/23 10:00 10/25/23 10:00 10/25/23 08:30 FiO2 65 10/25/23 10:00 Oxygen Flow Rate (L/min) 45 Oxygen Delivery Method Airvo Weight: 183 lb 13.848 oz Body Mass Index (BMI) 35.9 Intake & Output: Intake and Output for Last 24 Hours 10/23/23 10/24/23 10/25/23 23:59 23:59 23:59 Intake Total 1903.75 / 1903.75 655 / 655 50 / 50 Output Total 2400 / 2400 500 / 500 500 / 500 Balance -496.25 / -496.25 155 / 155 -450 / -450 Lab / Micro Data 10/25/23 05:27 10/25/23 05:27 Labs: Laboratory Results - last 24 hr 10/24/23 11:08: POC Glucose 285 H 10/24/23 16:34: POC Glucose 198 H 10/24/23 22:10: POC Glucose 236 H 10/25/23 05:27: WBC 11.5 H, RBC 3.66 L, Hgb 10.0 L, Hct 32.6 L, MCV 89.1, MCH 27.3, MCHC 30.7 L, RDW Std Deviation 47.4 H, RDW Coeff of Umu 14.6, Plt Count 349, MPV 9.9, Immature Gran % (Auto) 0.600, Neut % (Auto) 91.4 H, Lymph % (Auto) 5.1 L, [place] % (Auto) 2.8, Eos % (Auto) 0.0, Baso % (Auto) 0.1, Absolute Neuts (auto) 10.5 H, Absolute Lymphs (auto) 0.59 L, Nucleated RBC % 0, Sodium 139, Potassium 4.6, Chloride 104, Carbon Dioxide 29.0, Anion Gap 6, BUN 37 H, C reatinine 1.21 H, Estim Creat Clear Calc 36.10, Est GFR (MDRD) Af Amer 55 L, Est GFR (MDRD) Non-Af 46 L, BUN/Creatinine Ratio 30.6 H, Glucose 259 H, Calcium 9.5, Total Bilirubin 0.30, AST 22, ALT 23, Alkaline Phosphatase 75, Total Protein 6.8, Albumin 2.0 L, Globulin 4.8 H, Albumin/Globulin Ratio 0.4 L 10/25/23 06:15: POC Glucose 242 H Micro: Microbiology 10/22/23 13:47 Urine Catheter - Catheter Urine Culture - Final Escherichia coli 10/23/23 08:55 Mucosa - Nasopharyngeal Coronavirus COVID-19 PCR - Final SARS-CoV-2 (COVID 19 PCR) 10/22/23 17:15 Mucosa - Nose Respiratory Panel (PCR) - Final 10/22/23 13:47 Urine Catheter - Catheter Legionella Antigen - Final 10/22/23 13:47 Urine Catheter - Catheter Streptococcus pneumoniae Antigen (M - Final Physical Exam Narrative Seen and examined. Patient states that her shortness of breath is better. Still on Airvo and high flow oxygen. Has not moved bowels as per the patient Shortness of breath overnight has improved but oxygenation status still fluctuates. Patient is COVID-19 positive. Physical exam General: Alert, Oriented x3, Cooperative. Fatigue. BMI 36.0 kg/m? HEENT: Atraumatic, PERRLA, EOMI, Normocephalic Oral: No Gingival or Mucosal Lesions/ Ulcerations Neck: Supple, No JVD, Negative Carotid Bruits Chest wall/Lungs: Air entry better than yesterday. On Airvo. Bilateral diffuse crepitations in all lung dietz Cardiovascular: Regular rate, Regular Rhythm, Normal S1, Normal S2, aortic stenosis murmur., Grade 4/6 Abdomen: Bowel Sounds Present, Soft, Non Tender, Non-Distended : No dysuria. No renal angle tenderness. No suprapubic tenderness. Extremities: No edema, Capillary Refill Less than 3 Seconds Skin: No rashes, No breakdown Musculoskeletal: No Tenderness to Palpation of Joints or Extremities. Diffuse arthritis of knees. Neurological: Cranial nerves II-XII grossly intact, DTR 2+/4. No acute focal neurological deficit. Psych/Mental Status: Flat affect Assessment & Plan Assessment/Plan (1) Pneumonia: PLAN: Plan The patient is a 78 y/o F was admitted with a week history of increasing productive cough, shortness of breath, myalgia fatigue and dyspnea at rest but no fever or chest pain. At baseline, she uses oxygen at night for sleep #1. Acute hypoxic respiratory failure with chronic hypoxic respiratory failure: Patient is being admitted in PCU. Overnight she was started on BiPAP as she was in respiratory distress, could not breathe and when could not tolerate BiPAP she was switched to Airvo. In the morning she is little comfortable on Airvo but is still short of breath on conversation. Retail Merchandiser is consulted. Chest CTA individually reviewed and did not show PE but diffuse bilateral pulmonary consolidation with a small bilateral pleural effusion right greater than left. Bronchial dilatation in the right lower lobe with air-fluid level within bronchi. Plan: Antibiotic upgraded from Rocephin to Zosyn. Continue azithromycin. Continue Airvo support. Pulmonary consulted for further opinion and recommendation 10/23: PCR COVID positive. Patient did not had leukocytosis but WBC count improved. No thrombocytopenia. Relative lymphopenia, and 0.43 thousand. Patient on IV steroid. Intermittent Lasix recommended by dumper operator to maintain euvolemic status. Discussed with the nursing staff to continue Airvo as patient is on 10 to 14 L high flow oxygen 10/24: Patient was started on remdesivir yesterday. On Airvo 65% FiO2. Afebrile. Subjectively patient feels better Diabetes mellitus type 2: Glucose is around 250 mg/dL. Last A1c 5.7% in August 2020. Accu-Chek before meals and at bedtime correctional sliding scale. Started Lantus insulin 1000 subcutaneous daily #2. Bilateral eye discharge, suspected likely recent viral syndrome with now superimposed bacterial infection, bilateral conjunctivitis: bilateral erythromycin ointment. #3. WENDY on chronic Kidney Disease Stage 2: Admission BUN/Cr 30/1.49, GFR 36, baseline renal function previously 0.8-1.0. Admitted with increasing creatinine 1.5 times the baseline. Creatinine decreased to 1.22 today. 10/24: Creatinine 1.21 getting better. #4. Bacteriuria, asymptomatic: Patient denies any urinary symptoms, urinalysis with negative nitrite, however LE 100 with urine to BCs 5-10 with 3+ urine bacteria, urine culture pending. 10/23 urine culture shows E. coli [id number]. Not in pathology currently therefore not UTI but patient on IV antibiotic. #5. PAF: Patient not in atrial fibrillation, continue patient home atenolol regimen. Not on anticoagulation. 6. Hypertension: Continue home regimen including atenolol, losartan although given renal insufficiency low threshold to hold if renal function worsens, PRN hydralazine. 7. 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 Not on statin. Fasting profile ordered. Patient also has history of VTE. Not chronically anticoagulated. 8. Chronic anemia/Fe deficiency anemia: Admission hemoglobin 10.5, MCV 89.1, baseline hemoglobin appears remotely 8-9, last labs noted 2021, unclear recent baseline, 9. Diabetes mellitus type II with chronic neuropathy and Hx diabetic wounds: Hold oral home regimen, ADA diet, accu checks w/ ISS. 10. Multiple other comorbidities include hypothyroidism, GERD, anxiety and depression. 11. Obesity grade 2: BMI 36.60 kg prescribed DVT prophylaxis: Lovenox. #18. CODE status: Patient KANA is her Sister Francine and living will is currently in place. Discussed CODE status at length including difference between FULL code, DNR-CCA and DNR-CC status. Following discussions about the differences in these status, requested DNR-CCA, no intubation status, no aggressive measures including no central line or pressor therapy. She is willing to use airvo and BIPAP. Microbiology Past 72 Hours 10/22/23 13:47 Urine Catheter - Catheter Urine Culture - Final Escherichia coli 10/23/23 08:55 Mucosa - Nasopharyngeal Coronavirus COVID-19 PCR - Final SARS-CoV-2 (COVID 19 PCR) 10/22/23 17:15 Mucosa - Nose Respiratory Panel (PCR) - Final 10/22/23 13:47 Urine Catheter - Catheter Legionella Antigen - Final 10/22/23 13:47 Urine Catheter - Catheter Streptococcus pneumoniae Antigen (M - Final Laboratory Results 10/24/23 11:08: POC Glucose 285 H 10/24/23 16:34: POC Glucose 198 H 10/24/23 22:10: POC Glucose 236 H 10/25/23 05:27: WBC 11.5 H, RBC 3.66 L, Hgb 10.0 L, Hct 32.6 L, MCV 89.1, MCH 27.3, MCHC 30.7 L, RDW Std Deviation 47.4 H, RDW Coeff of Umu 14.6, Plt Count 349, MPV 9.9, Immature Gran % (Auto) 0.600, Neut % (Auto) 91.4 H, Lymph % (Auto) 5.1 L, [place] % (Auto) 2.8, Eos % (Auto) 0.0, Baso % (Auto) 0.1, Absolute Neuts (auto) 10.5 H, Absolute Lymphs (auto) 0.59 L, Nucleated RBC % 0, Sodium 139, Potassium 4.6, Chloride 104, Carbon Dioxide 29.0, Anion Gap 6, BUN 37 H, Creatinine 1.21 H, Estim Creat Clear Calc 36.10, Est GFR (MDRD) Af Amer 55 L, Est GFR (MDRD) Non-Af 46 L, BUN/Creatinine Ratio 30.6 H, Glucose 259 H, Calcium 9.5, Total Bilirubin 0.30, AST 22, ALT 23, Alkaline Phosphatase 75, Total Protein 6.8, Albumin 2.0 L, Globulin 4.8 H, Albumin/Globulin Ratio 0.4 L 10/25/23 06:15: POC Glucose 242 H Clinical Impression(s) from Imaging Studies Chest X-Ray 10/22/23 13:06 IMPRESSION: Right middle lobe consolidation with blunting of the right costophrenic angle. Increased markings at the left lung base. Radiographic follow-up is recommended. Electronically Signed: Andrew Merino MD at 14:04 EDT , Chest CTA 10/22/23 14:00 IMPRESSION: Diffuse bilateral pulmonary consolidation as described. Small bilateral pleural effusions right greater than left. Bronchial dilatation in the right lower lobe with air-fluid within the bronchi. Status post cholecystectomy with pneumobilia in the biliary ducts. Electronically Signed: Andrew Merino MD at 14:36 EDT , Chest X-Ray 10/23/23 09:29 IMPRESSION: Stable examination. Electronically Signed: Andrew Merino MD at 12:28 EDT , Charges/Coding Visit Charges Inpatient E&M: 09496 Subs Hosp L2
[2023-10-25] MEDS: guaiFENesin/D-Methorphan TAB.SR.12H 2 TABLET PO ×2 (12:06→20:46)
[2023-10-25] MEDS: Erythromycin Base 1 OPTH.TUBE 1 APPLIC EACH EYE ×3 (12:06→17:02)
[2023-10-25] MEDS: Nystatin Powder 15gm Bottle 1 APPLIC TOPICAL ×2 (12:07→20:47)
[2023-10-25] MEDS: Insulin Glargine-YFGN 100 UNIT/ML Pen 10 UNIT SC (12:10)
[2023-10-25 12:30] LABS: Bedside Glucose 202 mg/dL (74-106)
[2023-10-25] MEDS: Azithromycin 500 MG in Dextrose 5%-Water (250mL Bag) 250 ML 250 MG IV (13:52)
[2023-10-25] MEDS: Remdesivir 100 MG in 0.9% Normal Saline (250mL Bag) 230 ML 250 MG IV (13:52)
--- NOTE | 2023-10-25 13:58 | PCM.OP.PRO ---
Procedure Report Date of Procedure: 10/25/23 Assessment & Plan Assessment/Plan (1) Acute hypoxemic respiratory failure: Procedures Radiology Radiology Access Procedures: PICC Procedure Time Out Time Out Informed consent given: Yes Consent signed: Yes Time out checklist: patient, procedure, site marked/identified, positioning of patient, supplies available and allergies confirmed Time out staff in room: Yes Time out verified: Yes Time out date: 10/25/23 Time out time: 13:00 PICC Line Consent Screening tool completed:: Yes Consent obtained:: Yes Consent given by (patient or responsible democrat):: patient Line successful (if no, document why in comments):: Yes Insertion Reason for Insertion: Poor Venous Access Date of Insertion: 10/25/23 Ok to use: Yes Type of PICC inserted: Dual Power PICC PICC Lot #: [id number] PICC Reference #: [id number] Microintroducer Used: Yes (in kit) Ultrasound/Equipment Used: Probe Cover Kit Trimmed Length (cm): 42 Insertion Length (cm): 42 Exposed Length (cm): 0 Tip Placement: Caval Atrial Junction Placement Confirmation: 3CG Insertion Vein: Right Brachial Insertion Attempts: 1 Local Anesthesia Used: Lidocaine 1% (in kit) Dressing Applied: Statlock and Tegaderm CHG Arm Measurement above site (in cm): 27 Patient Tolerated Procedure: Well Threading Difficulties: No Comments Comment: Patient identity was verified with two patient identifiers. Informed consent was obtained and time-out was completed. Hands were sanitized. The patient was positioned supine with right arm at 90 degrees. The patient's upper arm vasculature was assessed using ultrasound. Patency of the right brachial vein was confirmed and the vein was externally marked. An external measurement was obtained of 42 cm. External leads were applied to the patient's right upper chest and laterally and inferior of the umbilicus on the mid axillary line. Cap, mask, and prep gloves were donned. The underdrape was placed under the patient's arm. The site was prepped with chlorhexidine, and tourniquet was loosely applied. Prep gloves were discarded, and hands were sanitized. The sterile kit was opened with additional supplies dropped in. Sterile gown and gloves were donned, and the patient was draped. The sterile kit was assembled with needle, introducer, needless connectors, and each catheter lumen flushed with sterile normal saline. The marked site of insertion was anesthetized with 1% lidocaine from the kit. Patient tolerated well. The right brachial vein was then accessed using ultrasound guidance and guidewire was inserted to safety jasmin. The tourniquet was released. The access needle was removed while securing the guidewire in place. The site was again anesthetized with 1% lidocaine, prior to insertion of introducer sheath and dilator. Patient tolerated the insertion well. The catheter was trimmed to a length of 42 cm. Using 3C guidance, the catheter was then inserted through the introducer sheath, slowly. There was no resistance on insertion. The catheter followed the expected course of the vessel using 3CG tracking. The introducer sheath was retracted and peeled away, incrementally, while keeping the catheter secured. Maximal p-wave, without deflection, confirming placement in the cavoatrial junction, was obtained at an insertion length of 42 cm, leaving 0 cm external. The stylet was removed. A flushed needleless connector was attached to the lumen. Aspiration of the lumen was performed to remove any air and confirm blood return. Blood return was verified and each lumen was flushed with 10 ml of sterile normal saline in a pulsatile fashion. The each lumen was clamped with the last pulsed flush. Total sterile flushes used for the insertion was 5 10 ml syringes, 2 from the kit. Finally, the insertion site was cleaned with chlorhexidine, and the catheter was secured using a StatLock. The site was covered with a Tegaderm CHG Dressing and disinfecting caps were applied. Baseline arm circumference was obtained at the insertion site and measured 27 cm. The patient was provided with a patient education handout on PICC line care of infection prevention, heavy lifting restriction, maintaining mobility, and watching for any signs of infection. The primary nurse is aware that the PICC line is ready for use.
--- NOTE | 2023-10-25 14:38 | HP.SPFEES ---
FEES Patient Information Date of Evaluation: 10/25/23 Time of Evaluation: 11:00 Diagnosis: PNA J18.9 Referring Physician: Mateo Talamantes Staff Providing this Care/Treatment:: NEW Direct Billable Minutes: 140 History: Past Medical History:: PMHx: Hypothyroidism, Anxiety and Depression, PAF, Hx CVA (L MCA) w/ Hx R vertebral artery occlusion, SOPHIE with nightly oxygen secondary to CPAP mask intolerance, HTN, HLD, Hx VTE, Chronic anemia/Fe deficiency anemia, Diabetes mellitus type II with chronic neuropathy and Hx diabetic wounds, Morbid obesity, GERD, CKD stage III unclear subtype (See EMR for full PMH). Pt presented to [facility] ED 10/22/23 with dyspnea, general malaise, fatigue, myalgias, and URI starting ~7 days prior to admission. Symptoms worsened so the patient presented to the ED. Pt was hypoxic (73%) improving to 90s on 8L via nasal cannula. Chest x-ray with right middle lobe consolidation with blunting the right costophrenic angle, increased markings at the left lung bases, CTPA with diffuse bilateral pulmonary consolidation, small bilateral pleural effusions right greater than left, bronchial dilatation right lower lobe with air-fluid within the bronchi. Pt admitted to PCU for medical management of acute hypoxic respiratory failure and PNA. PCR positive for COVID. ST was consulted due to concerns for aspiration. BSE recommended Easy to Chew textures / Thin liquids. SECURITIES CONSULTANT followed at bedside and recommended FEES 10/25/23 to further assess risk for aspiration due to coughing with thin liquids and pt reports for sensation of drinks going down the wrong way. SECURITIES CONSULTANT also increased supervision needs to direct supervision on 10/25/23. Subjective: Subjective:: Pt reports history of dysphagia s/p CVA requiring her to eat/drink with a slow rate and utilize liquid washes often with food/drink. Current Diet: Drinks/Liquids:: Thin Foods:: Easy to chew Supervision: 1:1 Close Supervision Comment:: Medications whole with liquids Respiratory Status Observation:: Airvo FIO2 55%; SpO2 fluctuating mid 80s-lower 90s both with and without oral intake today Vocal Quality: Observations:: Hoarse Cognition: Observations:: WFL Position During FEES: Position During FEES:: Upright Location: In Chair Fiberoptic Endoscope: Size: 3.4 mm Nare Used:: Right Anatomical Findings: Anatomical Findings:: Oropharynx, hypopharynx, and laryngeal vestibule appear pink, moist. Arytenoid adduction slightly asymmetrical with phonation tasks with R arytenoid slightly anterior to L arytenoid. True vocal fold adduction slightly incomplete especially in the posterior 1/2 of the vocal folds with phonation tasks. Poor pharyngeal contraction with pitch glides. Secretions: Description:: Thin, Clear and White Comment:: Running from nasopharynx to L pyriform sinus along posterior pharyngeal wall at end of study Location:: Nasopharynx, Oropharynx and Hypopharynx Comment:: Pt required ~5 ice chips to clear secretions. Saliva vs. ice chips pooling in the vallecula and pyriform sinuses. Penetration-Aspiration Scale Penetration-Aspiration Scale Thin Liquids by Teaspoon Food/Drink Provided:: Green-colored water Swallow Onset Location:: Vallecula PAS Score: PAS Score *5 Visual Analysis of Swallowing Efficiency and Safety (VASES) after the swallow: Oropharynx, Hypopharynx and Laryngeal Vestibule VASES Comments:: 15% L pyriform sinus <5% R pyriform sinus 15% vallecula <5% true vocal folds Thin Liquids by Single Cup Food/Drink Provided:: Green-colored water Swallow Onset Location:: Pyriform Sinuses PAS Score: PAS Score *5 Visual Analysis of Swallowing Efficiency and Safety (VASES) after the swallow: Oropharynx, Hypopharynx and Vocal Folds Comments:: 15% L pyriform sinus <5% R pyriform sinus 15% vallecula <5% true vocal folds Strategies Trialed:: Chin tuck = not effective Cough and re-swallow = not effective Thin Liquids by Single Straw Food/Drink Provided:: Green-colored water Swallow Onset Location:: Pyriform Sinuses PAS Score: PAS Score *5 Visual Analysis of Swallowing Efficiency and Safety (VASES) after the swallow: Oropharynx, Hypopharynx and Vocal Folds Comments:: 20% vallecula 20% BL pyriform sinuses <5% true vocal folds <5% ventricular folds Strategies Trialed:: Double swallow = somewhat effective Effortful = not effective Additional Comments:: Reflexive cough in response to thin liquid via cup Mildly Thick Liquids by Single Straw Food/Drink Provided:: Green-colored water Swallow Onset Location:: Pyriform Sinuses and Laryngeal Vestibule PAS Score: PAS Score *5 Visual Analysis of Swallowing Efficiency and Safety (VASES) after the swallow: Oropharynx, Hypopharynx and Vocal Folds Comments:: 15% L pyriform sinus 5% R pyriform sinus 5% vallecula <5% true vocal folds Strategies Trialed:: Cued cough and re-swallow = somewhat effective Chin tuck = somewhat effective (PAS of 1 on first trial, PAS of XXX on second and third trial) Additional Comments:: No reflexive coughing, significant anterior loss past the chin Moderately Thick Liquids by Teaspoon Food/Drink Provided:: Green-colored water Swallow Onset Location:: Pyriform Sinuses PAS Score: PAS Score *5 Visual Analysis of Swallowing Efficiency and Safety (VASES) after the swallow: Oropharynx, Hypopharynx and Vocal Folds Comments:: 15% L pyriform sinus 5% R pyriform sinus 15% vallecula <5% true vocal folds Strategies Trialed:: Cued cough and re-swallow = not effective Puree Textures Food/Drink Provided:: Green-colored applesauce Swallow Onset Location:: Epiglottis and Aryepiglottic Folds PAS Score: PAS Score *1 Visual Analysis of Swallowing Efficiency and Safety (VASES) after the swallow: Oropharynx and Hypopharynx Comments:: 40% vallecula bilaterally (spilled to pyriform sinuses on subsequent swallows) 10% aryepiglottic folds bilaterally <5% R pyriform sinus Strategies Trialed:: Double swallow = somewhat effective Additional Comments:: No sensation of pharyngeal residue Soft & Bite Sized Textures Food/Drink Provided:: 1/ Kristine Doone cookie softened in green-colored applesauce Swallow Onset Location:: Epiglottis and Aryepiglottic Folds PAS Score: PAS Score *1 Visual Analysis of Swallowing Efficiency and Safety (VASES) after the swallow: Oropharynx and Hypopharynx Comments:: 40% vallecula 10% posterior surface of epiglottis 5% aryepiglottic folds 10% R pyriform sinus Strategies Trialed:: Double swallow = somewhat effective Chin tuck = effective Additional Comments:: Some sensation of pharyngeal residue Diagnosis/Impressions Diagnosis: Moderate-severe oropharyngeal dysphagia R13.12 Impressions: The oral phase is primarily marked by... -Decreased bolus control with anterior loss of mildly thick liquids and premature posterior loss of thin and mildly thick liquids to the pharynx. -Prolonged, but complete mastication. The pharyngeal phase is primarily marked by... -Decreased pharyngeal contraction with moderate pharyngeal residues of pudding and cookie after the swallow. Pt was not always sensate of pharyngeal residue. Double swallow and chin tuck was most effective in clearing pharyngeal residues. -Decreased airway closure with deep laryngeal penetration across all liquid consistencies. Unable to definitively rule out aspiration as it was difficult to visualize the subglottis throughout the evaluation. Pt is at high risk for aspiration across all liquid consistencies. Additionally, pt did not have reflexive cough in response to deep laryngeal penetration of mildly thick liquids placing pt at increased risk for silent aspiration. Chin tuck was most effective in decreasing risk for aspiration with liquids. Recommendations Diet: Soft and Bite Sized Textures and Thin Liquids Medication Administration:: Whole in puree Comments: Direct supervision w/ all food and drink. Chin tuck and double swallows w/ all sips/bites. If worsening respiratory status, please make NPO. Compensatory Strategies: Small Bites, Small Sips, Slow Rate, Chin Tuck, Multiple Swallows, Sitting upright and Remain sitting upright for 30 minutes after PO intake Supervision: 1:1 Close Supervision Recommend Repeat Instrumental Swallow Assessment: Yes Comments: FEES vs. MBSS as deemed clinically appropriate by treating SECURITIES CONSULTANT in 1-2 weeks after oropharyngeal strengthening Need for Skilled Speech Therapy Services: Yes Education Completed: 1. Described result of evaluation., 2. Pt understands evaluation & agrees with goals and treatment plan. and 7. Pt requires further education on strategies & risks. Comments: RN and RASPER MACHINE OPERATOR verbalized good understanding of recommended diet, supervision needs, and strategies. SECURITIES CONSULTANT provided handout re: diet textures and strategies to be posted in the patient's room.
[2023-10-25 17:27] LABS: Bedside Glucose 248 mg/dL (74-106)
[2023-10-25] MEDS: Atorvastatin Calcium 20 MG Tablet PO (20:45)
[2023-10-25 21:12] LABS: Bedside Glucose 206 mg/dL (74-106)
[2023-10-26] VITALS (21 sets, daily range): BP systolic 137–160; BP diastolic 43–67; PULSE 53–64; RESP 12–18; TEMP 35.9–36.7; O2SAT 90–99; BMI 35.9
[2023-10-26 01:08] LABS: Hemoglobin A1c 5.9 % (3.8-5.6)
[2023-10-26] MEDS: Piperacil/Tazobactam 3.375 GM in 0.9% Normal Saline (50mL MB+) 50 ML IV ×3 (05:38→21:36)
[2023-10-26] MEDS: 0.9% Saline Lock 10 ML Syringe IV (05:38)
[2023-10-26] MEDS: Levothyroxine 125 MCG Tablet PO (05:38)
[2023-10-26] MEDS: Insulin Lispro 100 UNIT/ML INSULN.PEN SC ×3 (06:14→16:29)
[2023-10-26 06:35] LABS: Bedside Glucose 182 mg/dL (74-106)
--- NOTE | 2023-10-26 09:15 | PN.CC_ITS ---
Assessment & Plan Assessment/Plan (1) Acute hypoxemic respiratory failure: PLAN: Plan RECOMMENDATIONS: 1. Supplemental oxygen to maintain saturations at or above 90%. 2. Continue remdesivir and corticosteroids as ordered. 3. Continue empiric antimicrobials to complete 7 days of therapy. 4. Intermittent Lasix to maintain euvolemic state. 5. Continue aggressive bronchopulmonary hygiene. 6. Continue Lovenox for DVT prophylaxis. IMPRESSIONS: 1. Acute hypoxemic respiratory failure Most likely multifactorial in etiology. The patient screened positive for COVID-19 and likely has secondary bacterial pneumonia as well. In addition, I cannot discount the possibility of an underlying component of heart failure with preserved ejection fraction. CTA chest completed on October 21 ruled out PE. The patient will be continued on remdesivir and corticosteroids, along with empiric antibiotics. Intermittent utilization of diuretics will be considered to maintain euvolemic state. Otherwise, continue supplemental oxygen to maintain saturations at or above 90%. Continue aggressive bronchopulmonary hygiene along with Lovenox for DVT prophylaxis. 2. History of paroxysmal atrial fibrillation/history of CVA/valvular heart disease/heart failure preserved ejection fraction/hypertension/hyperlipidemia Complicates care, management, recovery and prognosis. Continue home medications as indicated. This note was generated with [employer] dictation software. It may contain incorrect words, spelling, and punctuation that were not noted in checking the note before signing. Subjective Subjective The patient was seen and examined at the bedside this morning. Events from the last 24 hours have been reviewed. The patient is currently afebrile, hemodynamically stable and maintaining appropriate oxygen saturations on 12 L/min via nasal cannula. The patient appears to be slowly improving from a respiratory perspective, but still desaturates with any form of physical exertion. Objective Data Objective Data The patient's most recent lab work, culture data and imaging studies have all been personally reviewed. Urine culture dated October 21 was positive for pansensitive E. coli. COVID-19 PCR was positive on October 22. Vital Signs: Vital Signs Temp Pulse Resp BP Pulse Ox O2 Del Method O2 Flow Rate 98.1 F 57 L 16 160/66 H 98 High Flow 12 10/26/23 09:08 10/26/23 09:08 10/26/23 09:08 10/26/23 09:08 10/26/23 09:09 10/26/23 09:09 10/26/23 09:09 FiO2 61 07/26/24 09:08 Oxygen Flow Rate (L/min) 12 Oxygen Delivery Method High Flow Weight: 184 lb 4.903 oz Body Mass Index (BMI) 35.9 Intake & Output: Intake and Output for Last 24 Hours 10/24/23 10/25/23 10/26/23 23:59 23:59 23:59 Intake Total 655 / 655 653.96 / 653.96 50 / 50 Output Total 500 / 500 800 / 1500 950 / 950 Balance 155 / 155 -146.04 / -846.04 -900 / -900 Lab / Micro Data Attestation: I reviewed the patient's lab results. 10/26/23 09:17 10/26/23 09:17 Labs: Laboratory Results - last 24 hr 10/25/23 05:27: Hemoglobin A1c 5.9 H 10/25/23 12:09: POC Glucose 202 H 10/25/23 17:04: POC Glucose 248 H 10/25/23 20:41: POC Glucose 206 H 10/26/23 06:13: POC Glucose 182 H Micro: Microbiology 10/22/23 13:13 Blood Culture (Wb) - Left Hand Blood Culture - Preliminary No growth in 48 hours. 10/22/23 13:47 Urine Catheter - Catheter Urine Culture - Final Escherichia coli 10/23/23 08:55 Mucosa - Nasopharyngeal Coronavirus COVID-19 PCR - Final SARS-CoV-2 (COVID 19 PCR) 10/22/23 17:15 Mucosa - Nose Respiratory Panel (PCR) - Final 10/22/23 13:47 Urine Catheter - Catheter Legionella Antigen - Final 10/22/23 13:47 Urine Catheter - Catheter Streptococcus pneumoniae Antigen (M - Final Radiography Diagnostic Testing: Radiology Impression Chest X-Ray 10/23/23 09:29 IMPRESSION: Stable examination. Electronically Signed: Andrew Merino MD at 12:28 EDT , Physical Exam Const alert and no apparent distress General Appearance: cooperative HEENT normocephalic and head/scalp atraumatic Eyes PERRL, EOMs intact bilaterally and conjunctivae normal Neck supple General: trachea midline Chest inspection of chest normal Resp normal respiratory effort and no use of accessory muscles Auscultation: diminished lung sounds Cardio regular rate and regular rhythm Heart Sounds: murmur GI normal to inspection, nondistended, normoactive bowel sounds Extremity no clubbing, cyanosis or edema Skin no rashes or lesions noted Neuro oriented x3, CN's II-XII intact bilaterally and moves all extremities Psych cooperative and affect normal Charges/Coding Visit Charges Inpatient E&M: 17575 Subs Hosp L2
[2023-10-26] MEDS: guaiFENesin/D-Methorphan TAB.SR.12H 2 TABLET PO ×2 (09:20→21:33)
[2023-10-26] MEDS: Sertraline 50 MG Tablet PO (09:20)
[2023-10-26] MEDS: Enoxaparin 40 MG/0.4 ML Syringe SC (09:20)
[2023-10-26] MEDS: Aspirin E.C. 81 MG Tablet PO (09:20)
[2023-10-26] MEDS: Nystatin Powder 15gm Bottle 1 APPLIC TOPICAL ×2 (09:20→21:35)
[2023-10-26] MEDS: Erythromycin Base 1 OPTH.TUBE 1 APPLIC EACH EYE ×3 (09:21→21:35)
[2023-10-26 09:30] LABS: Absolute Lymphocyte Count 0.51 X10^3/uL (0.83-4.51); Absolute Neutrophil Count 9.4 X10^3/uL (2.0-7.7); Basophil# 0.01 X10^3/uL; Basophil% 0.1 % (0-1); Hematocrit 35.2 % (37-47); Hemoglobin 10.7 g/dL (12.0-15.0); Lymphocyte # 0.51 X10^3/ul (0.83-4.51); Mean Corp Hgb Conc 30.4 g/dL (32-36); Mean Corpuscular Hgb 27.2 pg (27.0-32.0); Mean Corpuscular Volume 89.3 fL (81-99); Monocyte# 0.28 X10^3/uL; Monocyte% 2.7 % (0-10); NRBC Flagged by Analyzer 0 % (0-5); Neutrophil # 9.39 X10^3/uL (2.7-7.7); Neutrophil % 91.4 % (47-70); POSITIVE DIFFERENTIAL YES; Platelet Count 412 K/mm3 (150-450); RBC Distribution Width CV 14.8 % (11.6-14.6); RBC Distribution Width SD 47.9 fl (35.1-43.9); Red Blood Count 3.94 M/mm3 (4.2-5.4); White Blood Count 10.3 K/mm3 (4.4-11.0)
[2023-10-26] MEDS: Losartan Potassium 100 MG Tablet PO (09:43)
[2023-10-26 09:56] LABS: ALB/GLOB Ratio 0.4 RATIO (0.9-2.4); AST(SGOT) 15 U/L (15-37); Alanine Aminotransfer ALT/SGPT 24 U/L (13-56); Albumin, Serum 2.1 g/dL (3.2-5.0); Alkaline Phosphatase 69 U/L (45-117); Anion Gap 2 (5-15); BUN 33 mg/dL (7-18); BUN/Creat Ratio 28.4 RATIO (10-20); Calcium,Total 9.6 mg/dL (8.5-10.1); Chloride 108 mmol/L (98-107); Creatinine, Serum 1.16 mg/dL (0.55-1.02); EST Glomerular Filtration Rate 48 mL/min (>60); Est Glom Filt Rate - Afr Amer 58 mL/min (>60); Estimated Creatinine Clearance 37.71 ml/min; Globulin 4.9 g/dL (2.2-4.2); Glucose 199 mg/dL (74-106); Potassium 4.9 mmol/L (3.5-5.1); Sodium Level 139 mmol/L (136-145)
[2023-10-26] MEDS: Remdesivir 100 MG in 0.9% Normal Saline (250mL Bag) 230 ML 250 MG IV (10:04)
--- NOTE | 2023-10-26 10:23 | CASEMGMT ---
Social Work It is anticipated pt will be here through the weekend. SW/CM will continue to follow for discharge planning needs when appropriate. OPAL Carcamo
[2023-10-26] MEDS: Azithromycin 500 MG in Dextrose 5%-Water (250mL Bag) 250 ML 250 MG IV (12:26)
[2023-10-26] MEDS: Insulin Glargine-YFGN 100 UNIT/ML Pen 10 UNIT SC (12:30)
--- NOTE | 2023-10-26 14:21 | PCM.PN.HOSP ---
Reason for Visit Reason for Visit: Diagnoses Pneumonia, unspecified organism (10/22/23) Acute respiratory failure with hypoxia (10/22/23) Objective Data Objective Data Vital Signs: Vital Signs Temp Pulse Resp BP Pulse Ox O2 Del Method O2 Flow Rate 97.6 F L 55 L 18 147/43 H 95 Nasal Cannula 8 10/26/23 12:25 10/26/23 12:25 10/26/23 12:25 10/26/23 12:25 10/26/23 13:50 10/26/23 13:50 10/26/23 13:50 FiO2 63 10/26/23 11:15 Oxygen Flow Rate (L/min) 8 Oxygen Delivery Method Nasal Cannula Weight: 184 lb 4.903 oz Body Mass Index (BMI) 35.9 Intake & Output: Intake and Output for Last 24 Hours 10/24/23 10/25/23 10/26/23 23:59 23:59 23:59 Intake Total 655 / 655 653.96 / 653.96 350 / 350 Output Total 500 / 500 800 / 1500 950 / 950 Balance 155 / 155 -146.04 / -846.04 -600 / -600 Lab / Micro Data 10/26/23 09:17 10/26/23 09:17 Labs: Laboratory Results - last 24 hr 10/25/23 05:27: Hemoglobin A1c 5.9 H 10/25/23 17:04: POC Glucose 248 H 10/25/23 20:41: POC Glucose 206 H 10/26/23 06:13: POC Glucose 182 H 10/26/23 09:17: WBC 10.3, RBC 3.94 L, Hgb 10.7 L, Hct 35.2 L, MCV 89.3, MCH 27.2, MCHC 30.4 L, RDW Std Deviation 47.9 H, RDW Coeff of Umu 14.8 H, Plt Count 412, MPV 10.0, Immature Gran % (Auto) 0.800, Neut % (Auto) 91.4 H, Lymph % (Auto) 5.0 L, [place] % (Auto) 2.7, Eos % (Auto) 0.0, Baso % (Auto) 0.1, Absolute Neuts (auto) 9.4 H, Absolute Lymphs (auto) 0.51 L, Nucleated RBC % 0, Sodium 139, Potassium 4.9, Chloride 108 H, Carbon Dioxide 29.0, Anion Gap 2 L, BUN 33 H, Creatinine 1.16 H, Estim Creat Clear Calc 37.71, Est GFR (MDRD) Af Amer 58 L, Est GFR (MDRD) Non-Af 48 L, BUN/Creatinine Ratio 28.4 H, Glucose 199 H, Calcium 9.6, Total Bilirubin 0.30, AST 15, ALT 24, Alkaline Phosphatase 69, Total Protein 7.0, Albumin 2.1 L, Globulin 4.9 H, Albumin/Globulin Ratio 0.4 L Micro: Microbiology 10/22/23 13:13 Blood Culture (Wb) - Left Hand Blood Culture - Preliminary No growth in 48 hours. 10/22/23 13:47 Urine Catheter - Catheter Urine Culture - Final Escherichia coli 10/23/23 08:55 Mucosa - Nasopharyngeal Coronavirus COVID-19 PCR - Final SARS-CoV-2 (COVID 19 PCR) 10/22/23 17:15 Mucosa - Nose Respiratory Panel (PCR) - Final 10/22/23 13:47 Urine Catheter - Catheter Legionella Antigen - Final 10/22/23 13:47 Urine Catheter - Catheter Streptococcus pneumoniae Antigen (M - Final Physical Exam Narrative Seen and examined. Patient states that her shortness of breath is better. Was on Airvo, 63% FiO2 in the internet database specialist Currently on 8 L of high flow oxygen. Patient is COVID-19 positive. Physical exam General: Alert, Oriented x3, Cooperative. Fatigue. BMI 36.0 kg/m? HEENT: Atraumatic, PERRLA, EOMI, Normocephalic Oral: No Gingival or Mucosal Lesions/ Ulcerations Neck: Supple, No JVD, Negative Carotid Bruits Chest wall/Lungs: Air entry better than yesterday. On Airvo/high flow oxygen. Mild bilateral crepitations. Cardiovascular: Regular rate, Regular Rhythm, Normal S1, Normal S2, aortic stenosis murmur., Grade 4/6 Abdomen: Bowel Sounds Present, Soft, Non Tender, Non-Distended : No dysuria. No renal angle tenderness. No suprapubic tenderness. Extremities: No edema, Capillary Refill Less than 3 Seconds Skin: No rashes, No breakdown Musculoskeletal: No Tenderness to Palpation of Joints or Extremities. Diffuse arthritis of knees. Neurological: Cranial nerves II-XII grossly intact, DTR 2+/4. No acute focal neurological deficit. Psych/Mental Status: Flat affect Assessment & Plan Assessment/Plan (1) Pneumonia: PLAN: Plan The patient is a 78 y/o F was admitted with a week history of increasing productive cough, shortness of breath, myalgia fatigue and dyspnea at rest but no fever or chest pain. At baseline, she uses oxygen at night for sleep #1. Acute hypoxic respiratory failure with chronic hypoxic respiratory failure: Patient is being admitted in PCU. Overnight she was started on BiPAP as she was in respiratory distress, could not breathe and when could not tolerate BiPAP she was switched to Airvo. In the morning she is little comfortable on Airvo but is still short of breath on conversation. [place] Br[employer] Machine Operator is consulted. Chest CTA individually reviewed and did not show PE but diffuse bilateral pulmonary consolidation with a small bilateral pleural effusion right greater than left. Bronchial dilatation in the right lower lobe with air-fluid level within bronchi. Plan: Antibiotic upgraded from Rocephin to Zosyn. Continue azithromycin. Continue Airvo support. Pulmonary consulted for further opinion and recommendation 10/23: PCR COVID positive. Patient did not had leukocytosis but WBC count improved. No thrombocytopenia. Relative lymphopenia, and 0.43 thousand. Patient on IV steroid. Intermittent Lasix recommended by infantryman to maintain euvolemic status. Discussed with the nursing staff to continue Airvo as patient is on 10 to 14 L high flow oxygen 10/24: Patient was started on remdesivir yesterday. On Airvo 65% FiO2. Afebrile. Subjectively patient feels better 10/25: Continue remdesivir and steroid. On Airvo and high flow oxygen. Bronchodilator. Incentive spirometry and Pep encouraged. Liver chemistry normal range except hypoalbuminemia. Diabetes mellitus type 2: Glucose is around 250 mg/dL. Last A1c 5.7% in August 2020. Accu-Chek before meals and at bedtime correctional sliding scale. Started Lantus insulin 10 units subcutaneous daily. Glucose 199-250. A1c 5.9%. IV Solu-Medrol changed to dexamethasone #2. Bilateral eye discharge, suspected likely recent viral syndrome with now superimposed bacterial infection, bilateral conjunctivitis: bilateral erythromycin ointment. #3. WENDY on chronic Kidney Disease Stage 2: Admission BUN/Cr 30/1.49, GFR 36, baseline renal function previously 0.8-1.0. Admitted with increasing creatinine 1.5 times the baseline. Creatinine decreased to 1.22 today. 10/24: Creatinine 1.21 getting better. #4. Bacteriuria, asymptomatic: Patient denies any urinary symptoms, urinalysis with negative nitrite, however LE 100 with urine to BCs 5-10 with 3+ urine bacteria, urine culture pending. 10/23 urine culture shows E. coli [id number]. Not in pathology currently therefore not UTI but patient on IV antibiotic. #5. PAF: Patient not in atrial fibrillation, continue patient home atenolol regimen. Not on anticoagulation. 6. Hypertension: Continue home regimen including atenolol, losartan although given renal insufficiency low threshold to hold if renal function worsens, PRN hydralazine. 7. 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 Not on statin. Fasting profile ordered. Patient also has history of VTE. Not chronically anticoagulated. 8. Chronic anemia/Fe deficiency anemia: Admission hemoglobin 10.5, MCV 89.1, baseline hemoglobin appears remotely 8-9, last labs noted 2021, unclear recent baseline, 9. Diabetes mellitus type II with chronic neuropathy and Hx diabetic wounds: Hold oral home regimen, ADA diet, accu checks w/ ISS. 10. Multiple other comorbidities include hypothyroidism, GERD, anxiety and depression. 11. Obesity grade 2: BMI 36.60 kg prescribed DVT prophylaxis: Lovenox. #18. CODE status: Patient KANA is her Sister Francine and living will is currently in place. Discussed CODE status at length including difference between FULL code, DNR-CCA and DNR-CC status. Following discussions about the differences in these status, requested DNR-CCA, no intubation status, no aggressive measures including no central line or pressor therapy. She is willing to use airvo and BIPAP. Microbiology Past 72 Hours 10/22/23 13:13 Blood Culture (Wb) - Left Hand Blood Culture - Preliminary No growth in 48 hours. 10/22/23 13:47 Urine Catheter - Catheter Urine Culture - Final Escherichia coli 10/23/23 08:55 Mucosa - Nasopharyngeal Coronavirus COVID-19 PCR - Final SARS-CoV-2 (COVID 19 PCR) Laboratory Results 10/25/23 05:27: Hemoglobin A1c 5.9 H 10/25/23 17:04: POC Glucose 248 H 10/25/23 20:41: POC Glucose 206 H 10/26/23 06:13: POC Glucose 182 H 10/26/23 09:17: WBC 10.3, RBC 3.94 L, Hgb 10.7 L, Hct 35.2 L, MCV 89.3, MCH 27.2, MCHC 30.4 L, RDW Std Deviation 47.9 H, RDW Coeff of Umu 14.8 H, Plt Count 412, MPV 10.0, Immature Gran % (Auto) 0.800, Neut % (Auto) 91.4 H, Lymph % (Auto) 5.0 L, [place] % (Auto) 2.7, Eos % (Auto) 0.0, Baso % (Auto) 0.1, Absolute Neuts (auto) 9.4 H, Absolute Lymphs (auto) 0.51 L, Nucleated RBC % 0, Sodium 139, Potassium 4.9, Chloride 108 H, Carbon Dioxide 29.0, Anion Gap 2 L, BUN 33 H, Creatinine 1.16 H, Estim Creat Clear Calc 37.71, Est GFR (MDRD) Af Amer 58 L, Est GFR (MDRD) Non-Af 48 L, BUN/Creatinine Ratio 28.4 H, Glucose 199 H, Calcium 9.6, Total Bilirubin 0.30, AST 15, ALT 24, Alkaline Phosphatase 69, Total Protein 7.0, Albumin 2.1 L, Globulin 4.9 H, Albumin/Globulin Ratio 0.4 L Clinical Impression(s) from Imaging Studies Chest X-Ray 10/22/23 13:06 IMPRESSION: Right middle lobe consolidation with blunting of the right costophrenic angle. Increased markings at the left lung base. Radiographic follow-up is recommended. Electronically Signed: Andrew Merino MD at 14:04 EDT , Chest CTA 10/22/23 14:00 IMPRESSION: Diffuse bilateral pulmonary consolidation as described. Small bilateral pleural effusions right greater than left. Bronchial dilatation in the right lower lobe with air-fluid within the bronchi. Status post cholecystectomy with pneumobilia in the biliary ducts. Electronically Signed: Andrew Merino MD at 14:36 EDT , Chest X-Ray 10/23/23 09:29 IMPRESSION: Stable examination. Electronically Signed: Andrew Merino MD at 12:28 EDT , Charges/Coding Visit Charges Inpatient E&M: 54952 Subs Hosp L3
--- NOTE | 2023-10-26 16:00 | CASEMGMT ---
EDNA OBREGON NOTE: Therapy notes reviewed from today. Pt ambulated 10 ft w/FWW and CGA, additional therapy recommended. EDNA OBREGON spoke w/[place] STENOGRAPHER, who states she feels pt would be safe to discharge home alone, once oxygen requirements/breathing improves. EDNA OBREGON spoke w/pt. Introduced self and role. Discussed discharge planning/needs. Pt states she wishes to discharge home once breathing improved and feels she will be safe home alone. She states lives in 2nd floor apt, but has ramp entrance and states she uses a walker @ baseline. She would like [facility] @ discharge and declines wanting list of other [facility] options. Referral made to [facility]. They are able to accept pt w/SOC slated for Wed. Pt made aware and voices appreciation. Discussed home O2. Pt wears O2 @ HS only via [employer]. Pt has concentrator only, no portability. If pt qualifies for O2 @ rest or w/exertion @ discharge, new script for O2 to be faxed to [facility] and pt will need portable O2 tank sent home w/her. Pt to call [employer] prior to discharge to have arrangements made for portability to be delivered to her home. Pt made aware of this process. She voices understanding. Pt verifies she does have a pulse ox. Pt denies other discharge needs/concerns. Eiljah CHILDS RN, CM
[2023-10-26 16:34] LABS: Bedside Glucose 184 mg/dL (74-106)
[2023-10-26 17:04] LABS: Bedside Glucose 192 mg/dL (74-106)
[2023-10-26] MEDS: Sodium Chloride 0.65% 1 SPRAY SPRAY.BTL 2 SPRAY NASAL (21:33)
[2023-10-26] MEDS: Atorvastatin Calcium 20 MG Tablet PO (21:33)
[2023-10-26] MEDS: Senna/Docusate Sodium 1 Tablet 2 TABLET PO (21:33)
[2023-10-26 22:27] LABS: Bedside Glucose 124 mg/dL (74-106)
[2023-10-27] VITALS (21 sets, daily range): BP systolic 117–134; BP diastolic 51–59; PULSE 55–65; RESP 17–23; TEMP 35.6–36.6; O2SAT 78–98; BMI 35.6
[2023-10-27] MEDS: Piperacil/Tazobactam 3.375 GM in 0.9% Normal Saline (50mL MB+) 50 ML IV ×3 (05:21→20:34)
[2023-10-27] MEDS: Levothyroxine 125 MCG Tablet PO (05:22)
[2023-10-27 07:07] LABS: Bedside Glucose 73 mg/dL (74-106)
--- NOTE | 2023-10-27 07:40 | RAD_ITS ---
INDICATION: tachypnea, sob EXAMINATION/TECHNIQUE: X-RAY - XR Chest 1 View COMPARISON: 10/23/2023, chest CT 10/22/2023. FINDINGS: LINES/DEVICES: None. LUNGS: Small right pleural effusion, no significant change from the prior study. Underlying pneumonic consolidation is suspected. No pulmonary edema. No pneumothorax. MEDIASTINUM AND CARDIOVASCULAR STRUCTURES: Cardiac silhouette not enlarged. Central airways and mediastinal contour are unremarkable. BONES AND SOFT TISSUES: Unremarkable. RAD/Chest 1 View (Portable) IMPRESSION: Right lower lobe pneumonia and pleural effusion. Electronically Signed: Ronda Starkey MD at 18:46 EDT Reading Location ID and State: [id number] / Tel , Service support ,
[2023-10-27 07:52] LABS: Absolute Lymphocyte Count 1.15 X10^3/uL (0.83-4.51); Absolute Neutrophil Count 6.7 X10^3/uL (2.0-7.7); Basophil# 0.01 X10^3/uL; Basophil% 0.1 % (0-1); Eosinophil# 0.04 X10^3/uL; Eosinophils% 0.5 % (0-5); Hematocrit 35.2 % (37-47); Hemoglobin 10.8 g/dL (12.0-15.0); Lymphocyte # 1.15 X10^3/ul (0.83-4.51); Lymphocyte % 13.5 % (19-41); Mean Corp Hgb Conc 30.7 g/dL (32-36); Mean Corpuscular Hgb 27.6 pg (27.0-32.0); Mean Platelet Vol. 9.6 fl (6.2-12.0); Monocyte# 0.57 X10^3/uL; Monocyte% 6.7 % (0-10); NRBC Flagged by Analyzer 0 % (0-5); Neutrophil # 6.68 X10^3/uL (2.7-7.7); Neutrophil % 78.4 % (47-70); Platelet Count 417 K/mm3 (150-450); RBC Distribution Width CV 14.9 % (11.6-14.6); RBC Distribution Width SD 49.2 fl (35.1-43.9); Red Blood Count 3.91 M/mm3 (4.2-5.4); White Blood Count 8.5 K/mm3 (4.4-11.0)
[2023-10-27 08:24] LABS: ALB/GLOB Ratio 0.4 RATIO (0.9-2.4); AST(SGOT) 22 U/L (15-37); Alanine Aminotransfer ALT/SGPT 25 U/L (13-56); Alkaline Phosphatase 62 U/L (45-117); Anion Gap 4 (5-15); BUN 33 mg/dL (7-18); Calcium,Total 9.5 mg/dL (8.5-10.1); Chloride 109 mmol/L (98-107); Creatinine, Serum 1.27 mg/dL (0.55-1.02); EST Glomerular Filtration Rate 43 mL/min (>60); Est Glom Filt Rate - Afr Amer 52 mL/min (>60); Estimated Creatinine Clearance 34.28 ml/min; Globulin 4.7 g/dL (2.2-4.2); Glucose 76 mg/dL (74-106); Potassium 4.2 mmol/L (3.5-5.1); Protein, Total 6.7 g/dL (6.4-8.2); Sodium Level 142 mmol/L (136-145)
[2023-10-27] MEDS: Remdesivir 100 MG in 0.9% Normal Saline (250mL Bag) 230 ML 250 MG IV (10:34)
[2023-10-27] MEDS: Azithromycin 500 MG in Dextrose 5%-Water (250mL Bag) 250 ML 250 MG IV (10:34)
[2023-10-27] MEDS: dexAMETHasone 10 MG/ML Vial 6 MG IV (10:42)
[2023-10-27] MEDS: Aspirin E.C. 81 MG Tablet PO (10:45)
[2023-10-27] MEDS: Enoxaparin 40 MG/0.4 ML Syringe SC (10:45)
[2023-10-27] MEDS: Ferrous Sulfate 325 MG Tablet PO (10:45)
[2023-10-27] MEDS: Sertraline 50 MG Tablet PO (10:45)
[2023-10-27] MEDS: Atenolol 50 MG Tablet PO (10:45)
[2023-10-27] MEDS: Losartan Potassium 100 MG Tablet PO (10:45)
[2023-10-27] MEDS: guaiFENesin/D-Methorphan TAB.SR.12H 2 TABLET PO (10:45)
[2023-10-27] MEDS: Pantoprazole Sodium 20 MG Tablet PO (10:46)
[2023-10-27] MEDS: Nystatin Powder 15gm Bottle 1 APPLIC TOPICAL ×2 (10:46→20:35)
[2023-10-27] MEDS: Erythromycin Base 1 OPTH.TUBE 1 APPLIC EACH EYE ×4 (10:46→20:34)
[2023-10-27 11:21] LABS: Bedside Glucose 99 mg/dL (74-106)
--- NOTE | 2023-10-27 13:09 | PCM.PN.HOSP ---
Reason for Visit Reason for Visit: Diagnoses Pneumonia, unspecified organism (10/22/23) Acute respiratory failure with hypoxia (10/22/23) Objective Data Objective Data Vital Signs: Vital Signs Temp Pulse Resp BP Pulse Ox O2 Del Method O2 Flow Rate 96.0 F L 59 L 19 H 124/51 H 95 Airvo 50 10/27/23 12:00 10/27/23 12:00 10/27/23 12:00 10/27/23 12:00 10/27/23 12:00 10/27/23 12:00 10/27/23 03:30 FiO2 78 10/27/23 12:00 Oxygen Flow Rate (L/min) 50 Oxygen Delivery Method Airvo Weight: 182 lb 12.211 oz Body Mass Index (BMI) 35.6 Intake & Output: Intake and Output for Last 24 Hours 10/25/23 10/26/23 10/27/23 23:59 23:59 23:59 Intake Total 653.96 / 653.96 1495 / 1495 605 / 605 Output Total 800 / 1500 1150 / 1150 Balance -146.04 / -846.04 345 / 345 605 / 605 Lab / Micro Data 10/27/23 07:10 10/27/23 07:10 Labs: Laboratory Results - last 24 hr 10/26/23 12:15: POC Glucose 184 H 10/26/23 16:18: POC Glucose 192 H 10/26/23 21:46: POC Glucose 124 H 10/27/23 06:49: POC Glucose 73 L 10/27/23 07:10: WBC 8.5, RBC 3.91 L, Hgb 10.8 L, Hct 35.2 L, MCV 90.0, MCH 27.6, MCHC 30.7 L, RDW Std Deviation 49.2 H, RDW Coeff of Umu 14.9 H, Plt Count 417, MPV 9.6, Immature Gran % (Auto) 0.800, Neut % (Auto) 78.4 H, Lymph % (Auto) 13.5 L, Gentry % (Auto) 6.7, Eos % (Auto) 0.5, Baso % (Auto) 0.1, Absolute Neuts (auto) 6.7, Absolute Lymphs (auto) 1.15, Nucleated RBC % 0, Sodium 142, Potassium 4.2, Chloride 109 H, Carbon Dioxide 29.0, Anion Gap 4 L, BUN 33 H, Creatinine 1.27 H, Estim Creat Clear Calc 34.28, Est GFR (MDRD) Af Amer 52 L, Est GFR (MDRD) Non-Af 43 L, BUN/Creatinine Ratio 26.0 H, Glucose 76, Calcium 9.5, Total Bilirubin 0.30, AST 22, ALT 25, Alkaline Phosphatase 62, Total Protein 6.7, Albumin 2.0 L, Globulin 4.7 H, Albumin/Globulin Ratio 0.4 L 10/27/23 10:57: POC Glucose 99 Micro: Microbiology 10/22/23 13:13 Blood Culture (Wb) - Left Hand Blood Culture - Preliminary No growth in 48 hours. 10/22/23 13:47 Urine Catheter - Catheter Urine Culture - Final Escherichia coli 10/23/23 08:55 Mucosa - Nasopharyngeal Coronavirus COVID-19 PCR - Final SARS-CoV-2 (COVID 19 PCR) 10/22/23 17:15 Mucosa - Nose Respiratory Panel (PCR) - Final 10/22/23 13:47 Urine Catheter - Catheter Legionella Antigen - Final 10/22/23 13:47 Urine Catheter - Catheter Streptococcus pneumoniae Antigen (M - Final Physical Exam Narrative Seen and examined. Patient on Airvo 78% FiO2. Respiratory rate 19 to 23/min. No fever. Heart rate in low 60s sinus rhythm. Subjectively she feels no increase in shortness of breath Patient is COVID-19 positive. Had a bowel movement yesterday. Physical exam General: Alert, Oriented x3, Cooperative. Fatigue. BMI 36.0 kg/m? HEENT: Atraumatic, PERRLA, EOMI, Normocephalic Oral: No Gingival or Mucosal Lesions/ Ulcerations Neck: Supple, No JVD, Negative Carotid Bruits Chest wall/Lungs: Air entry better than yesterday. On Airvo/high flow oxygen. Mild bilateral crepitations. Cardiovascular: Sinus bradycardia, Normal S1, Normal S2, aortic stenosis murmur., Grade 4/6 Abdomen: Bowel Sounds Present, Soft, Non Tender, Non-Distended : No dysuria. No renal angle tenderness. No suprapubic tenderness. Extremities: No edema, Capillary Refill Less than 3 Seconds Skin: No rashes, No breakdown Musculoskeletal: No Tenderness to Palpation of Joints or Extremities. Diffuse arthritis of knees. Neurological: Cranial nerves II-XII grossly intact, DTR 2+/4. No acute focal neurological deficit. Psych/Mental Status: Flat affect Assessment & Plan Assessment/Plan (1) Pneumonia: PLAN: Plan The patient is a 78 y/o F was admitted with a week history of increasing productive cough, shortness of breath, myalgia fatigue and dyspnea at rest but no fever or chest pain. At baseline, she uses oxygen at night for sleep #1. Acute hypoxic respiratory failure with chronic hypoxic respiratory failure: Patient is being admitted in PCU. Overnight she was started on BiPAP as she was in respiratory distress, could not breathe and when could not tolerate BiPAP she was switched to Airvo. In the morning she is little comfortable on Airvo but is still short of breath on conversation. Student Accounts Manager is consulted. Chest CTA individually reviewed and did not show PE but diffuse bilateral pulmonary consolidation with a small bilateral pleural effusion right greater than left. Bronchial dilatation in the right lower lobe with air-fluid level within bronchi. Plan: Antibiotic upgraded from Rocephin to Zosyn. Continue azithromycin. Continue Airvo support. Pulmonary consulted for further opinion and recommendation 10/23: PCR COVID positive. Patient did not had leukocytosis but WBC count improved. No thrombocytopenia. Relative lymphopenia, and 0.43 thousand. Patient on IV steroid. Intermittent Lasix recommended by value analyst to maintain euvolemic status. Discussed with the nursing staff to continue Airvo as patient is on 10 to 14 L high flow oxygen 10/24: Patient was started on remdesivir yesterday. On Airvo 65% FiO2. Afebrile. Subjectively patient feels better 10/25: Continue remdesivir and steroid. On Airvo and high flow oxygen. Bronchodilator. Incentive spirometry and Pep encouraged. Liver chemistry normal range except hypoalbuminemia. 10/25: Increase in the Airvo. Repeat chest x-ray shows right pleural effusion and bilateral lung bases infiltrate with underlying atelectasis. Continue oxygen support, antibiotics, remdesivir and steroid and bronchodilator. Retail Loss Prevention Officer following. Diabetes mellitus type 2: Glucose is around 250 mg/dL. Last A1c 5.7% in August 2020. Accu-Chek before meals and at bedtime correctional sliding scale. Started Lantus insulin 10 units subcutaneous daily. Glucose 199-250. A1c 5.9%. IV Solu-Medrol changed to dexamethasone #2. Bilateral eye discharge, suspected likely recent viral syndrome with now superimposed bacterial infection, bilateral conjunctivitis: bilateral erythromycin ointment. #3. WENDY on chronic Kidney Disease Stage 2: Admission BUN/Cr 30/1.49, GFR 36, baseline renal function previously 0.8-1.0. Admitted with increasing creatinine 1.5 times the baseline. Creatinine decreased to 1.22 today. 10/24: Creatinine 1.21 getting better. #4. Bacteriuria, asymptomatic: Patient denies any urinary symptoms, urinalysis with negative nitrite, however LE 100 with urine to BCs 5-10 with 3+ urine bacteria, urine culture pending. 10/23 urine culture shows E. coli [id number]. Not in pathology currently therefore not UTI but patient on IV antibiotic. #5. PAF: Patient not in atrial fibrillation, continue patient home atenolol regimen. Not on anticoagulation. 10/26 heart rate is in low 60s. Atrial all dose decreased from 50 mg to 25 mg daily with holding parameters. BP in 120s therefore losartan was also decreased to 50 mg daily. 6. Hypertension: Continue home regimen including atenolol, losartan although given renal insufficiency low threshold to hold if renal function worsens, PRN hydralazine. 7. 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 Not on statin. Fasting profile ordered. Patient also has history of VTE. Not chronically anticoagulated. 8. Chronic anemia/Fe deficiency anemia: Admission hemoglobin 10.5, MCV 89.1, baseline hemoglobin appears remotely 8-9, last labs noted 2021, unclear recent baseline, 9. Diabetes mellitus type II with chronic neuropathy and Hx diabetic wounds: Hold oral home regimen, ADA diet, accu checks w/ ISS. 10/26: Glucose was 70 3 in the morning and BMP show 76. Due to discontinuation of Solu-Medrol and changed to dexamethasone. Lantus insulin dose decreased. On hypoglycemia protocol. 10. Multiple other comorbidities include hypothyroidism, GERD, anxiety and depression. 11. Obesity grade 2: BMI 36.60 kg prescribed DVT prophylaxis: Lovenox. #18. CODE status: Patient KANA is her Sister Francine and living will is currently in place. Discussed CODE status at length including difference between FULL code, DNR-CCA and DNR-CC status. Following discussions about the differences in these status, requested DNR-CCA, no intubation status, no aggressive measures including no central line or pressor therapy. She is willing to use airvo and BIPAP. Microbiology Past 72 Hours 10/22/23 13:13 Blood Culture (Wb) - Left Hand Blood Culture - Preliminary No growth in 48 hours. 10/22/23 13:47 Urine Catheter - Catheter Urine Culture - Final Escherichia coli Laboratory Results 10/26/23 12:15: POC Glucose 184 H 10/26/23 16:18: POC Glucose 192 H 10/26/23 21:46: POC Glucose 124 H 10/27/23 06:49: POC Glucose 73 L 10/27/23 07:10: WBC 8.5, RBC 3.91 L, Hgb 10.8 L, Hct 35.2 L, MCV 90.0, MCH 27.6, MCHC 30.7 L, RDW Std Deviation 49.2 H, RDW Coeff of Umu 14.9 H, Plt Count 417, MPV 9.6, Immature Gran % (Auto) 0.800, Neut % (Auto) 78.4 H, Lymph % (Auto) 13.5 L, Gentry % (Auto) 6.7, Eos % (Auto) 0.5, Baso % (Auto) 0.1, Absolute Neuts (auto) 6.7, Absolute Lymphs (auto) 1.15, Nucleated RBC % 0, Sodium 142, Potassium 4.2, Chloride 109 H, Carbon Dioxide 29.0, Anion Gap 4 L, BUN 33 H, Creatinine 1.27 H, Estim Creat Clear Calc 34.28, Est GFR (MDRD) Af Amer 52 L, Est GFR (MDRD) Non-Af 43 L, BUN/Creatinine Ratio 26.0 H, Glucose 76, Calcium 9.5, Total Bilirubin 0.30, AST 22, ALT 25, Alkaline Phosphatase 62, Total Protein 6.7, Albumin 2.0 L, Globulin 4.7 H, Albumin/Globulin Ratio 0.4 L 10/27/23 10:57: POC Glucose 99 Clinical Impression(s) from Imaging Studies Chest X-Ray 10/22/23 13:06 IMPRESSION: Right middle lobe consolidation with blunting of the right costophrenic angle. Increased markings at the left lung base. Radiographic follow-up is recommended. Electronically Signed: Andrew Merino MD at 14:04 EDT , Chest CTA 10/22/23 14:00 IMPRESSION: Diffuse bilateral pulmonary consolidation as described. Small bilateral pleural effusions right greater than left. Bronchial dilatation in the right lower lobe with air-fluid within the bronchi. Status post cholecystectomy with pneumobilia in the biliary ducts. Electronically Signed: Andrew Merino MD at 14:36 EDT , Chest X-Ray 10/23/23 09:29 IMPRESSION: Stable examination. Electronically Signed: Andrew Merino MD at 12:28 EDT , Charges/Coding Visit Charges Inpatient E&M: 21007 Subs Hosp L2
[2023-10-27] MEDS: Lactobacillis Acidophilus 1 CAP PO (13:40)
--- NOTE | 2023-10-27 13:41 | PN.CC_ITS ---
Objective Data Objective Data Vital Signs: Vital Signs Last response 3 Temperature 35.6 C L 10/27/23 12:00 Temperature Source Oral 10/27/23 12:00 Pulse Rate 59 L 10/27/23 12:00 Respiratory Rate 19 H 10/27/23 12:00 Respiratory Effort Normal, Non-Labored 10/27/23 08:09 Respiratory Depth Normal 10/27/23 08:09 Respiratory Pattern Tachypnea 10/27/23 08:09 Blood Pressure 124/51 H 10/27/23 12:00 Blood Pressure Mean 75 10/27/23 12:00 Blood Pressure Source Monitor 10/27/23 03:30 Blood Pressure Position Semi-Fowlers 10/27/23 03:30 Blood Pressure Location Left Arm 10/27/23 03:30 Pulse Ox 95 10/27/23 12:00 Oxygen Delivery Method Airvo 10/27/23 12:00 Oxygen Flow Rate (L/min) 50 10/27/23 03:30 Fraction of Inspired Oxygen (FIO2) 78 10/27/23 12:00 I&O: I&O Last 24 Hours 3 10/26/23 10/27/23 10/27/23 23:59 11:59 23:59 Intake Total 1445 / 1495 605 / 605 Output Total 200 / 1150 Balance 1245 / 345 605 / 605 I&O: Total Stay 3 10/22/23 12:33 thru 10/27/23 11:47 Intake Total 5782.71 Output Total 4850 Balance 932.71 Current Meds Ordered / Administered: Current meds ordered / Administered 3 Generic Name Dose Route Start Last Admin Trade Name Tamika PRN Reason Stop Dose Admin Acetaminophen 650 mg 10/22/23 17:21 Acetaminophen 325 Mg Tablet PO Q4H PRN PRN Fever, pain 1-10/10 Albuterol/Ipratropium 3 ml 10/26/23 14:30 Ipratropium/Albuterol Sulfate 3 Ml Ampul.Neb INHALATION Q6HWA.RT DEANN Aspirin 81 mg 10/23/23 08:00 10/27/23 10:45 Aspirin E.C. 81 Mg Tablet PO 81 mg BREAKFAST DEANN Administration Atenolol 25 mg 10/28/23 10:00 Atenolol 25 Mg Tablet PO DAILY [facility] Protocol Atorvastatin Calcium 20 mg 10/22/23 22:00 10/26/23 21:33 Atorvastatin Calcium 20 Mg Tablet PO 20 mg QHS DEANN Administration Dexamethasone Sodium Phosphate 6 mg 10/27/23 10:00 10/27/23 10:42 Dexamethasone 10 Mg/Ml Vial IV 6 mg DAILY DEANN Administration Enoxaparin Sodium 40 mg 10/23/23 10:00 10/27/23 10:45 Enoxaparin 40 Mg/0.4 Ml Syringe SC 40 mg DAILY DEANN Administration Erythromycin 1 applic 10/22/23 18:00 10/27/23 10:46 Erythromycin Base 1 Opth.Tube EACH EYE 1 applic 4X/DAY DEANN Administration Ferrous Sulfate 325 mg 10/23/23 08:00 10/27/23 10:45 Ferrous Sulfate 325 Mg Tablet PO 325 mg Q48@0800 DEANN Administration Glucagon 1 mg 10/22/23 17:21 Glucagon 1 Mg/Ml Syringe IM X1 PRN HYPOGLYCEMIA Protocol Guaifenesin 2 tablet 10/24/23 10:00 10/27/23 10:45 Guaifenesin/D-Methorphan Tab.Sr.12h PO 2 tablet BID DEANN Administration Hydralazine HCl 10 mg 10/22/23 17:21 Hydralazine 20 Mg/Ml Vial IV Q4H PRN PRN SBP > 160 Protocol Dextrose 250 mls @ 0 mls/hr 10/22/23 17:21 Dextrose 10%-Water IV .Q0M PRN HYPOGLYCEMIA Protocol As Directed Piperacillin Sod/Tazobactam 50 mls @ 12.5 mls/hr 10/23/23 08:10 10/27/23 11:38 Sod 3.375 gm/ Sodium Chloride IV Infused Q8 DEANN Infusion Sodium Chloride 250 mls @ 15 mls/hr 10/23/23 13:27 IV .[id number] PRN Additional IVPB Infusion Sodium Chloride 250 mls @ 15 mls/hr 10/23/23 13:27 IV .[id number] PRN Saline Flush Remdesivir 100 mg/ Sodium 250 mls @ 250 mls/hr 10/25/23 10:00 10/27/23 11:38 Chloride IV 10/28/23 10:59 Infused DAILY DEANN Infusion Protocol Insulin Glargine 5 unit 10/28/23 10:00 Insulin Glargine-Yfgn 100 Unit/Ml Pen SC DAILY DEANN Protocol Insulin Human Lispro 0 unit 10/22/23 17:21 10/27/23 10:58 Insulin Lispro 100 Unit/Ml Insuln.Pen SC Not Given ACHS [facility] Protocol Levothyroxine Sodium 125 mcg 10/23/23 06:00 10/27/23 05:22 Levothyroxine 125 Mcg Tablet PO 125 mcg DAILY@0600 DEANN Administration Losartan Potassium 50 mg 10/28/23 10:00 Losartan Potassium 50 Mg Tablet PO DAILY [facility] Protocol Melatonin 3 mg 10/22/23 17:21 Melatonin 3 Mg Tablet PO QHS PRN PRN INSOMNIA Nystatin 1 applic 10/22/23 22:00 10/27/23 10:46 Nystatin Powder 15gm Bottle TOPICAL 1 applic BID [facility] Administration Protocol Ondansetron HCl 4 mg 10/22/23 17:21 Ondansetron 4 Mg/2 Ml Vial IV Q8H PRN PRN NAUSEA/VOMITING Pantoprazole Sodium 20 mg 10/23/23 08:00 10/27/23 10:46 Pantoprazole Sodium 20 Mg Tablet PO 20 mg Q48@0800 [facility] Administration Polyethylene Glycol 17 gm 10/24/23 10:25 10/27/23 10:46 Polyethylene Glycol 3350 17 Gm Packet PO Not Given BID DEANN Prochlorperazine Edisylate 5 mg 10/22/23 17:21 Prochlorperazine 10 Mg/2 Ml Vial IV Q4H PRN PRN Breakthrough Nausea/Vomiting Senna/Docusate Sodium 2 tablet 10/24/23 22:00 10/27/23 10:47 Senna/Docusate Sodium 1 Tablet PO Not Given BID [facility] Sertraline HCl 50 mg 10/23/23 10:00 10/27/23 10:45 Sertraline 50 Mg Tablet PO 50 mg DAILY [facility] Administration Sodium Chloride 10 - 40 ml 10/23/23 13:27 10/26/23 05:38 0.9% Saline Lock 10 Ml Syringe IV 10 ml UD PRN Administration SALINE FLUSH Sodium Chloride 2 spray 10/26/23 08:42 10/26/23 21:33 Sodium Chloride 0.65% 1 Sunburst Sunburst.Btl NASAL 2 spray TID PRN PRN Administration NASAL DRYNESS Medical Records Data Attestation: I reviewed the patient's medical records Lab / Micro Data Attestation: I reviewed the patient's lab results. 10/27/23 07:10 10/27/23 07:10 Labs: Laboratory Results - last 24 hr 10/26/23 12:15: POC Glucose 184 H 10/26/23 16:18: POC Glucose 192 H 10/26/23 21:46: POC Glucose 124 H 10/27/23 06:49: POC Glucose 73 L 10/27/23 07:10: WBC 8.5, RBC 3.91 L, Hgb 10.8 L, Hct 35.2 L, MCV 90.0, MCH 27.6, MCHC 30.7 L, RDW Std Deviation 49.2 H, RDW Coeff of Umu 14.9 H, Plt Count 417, MPV 9.6, Immature Gran % (Auto) 0.800, Neut % (Auto) 78.4 H, Lymph % (Auto) 13.5 L, Rains % (Auto) 6.7, Eos % (Auto) 0.5, Baso % (Auto) 0.1, Absolute Neuts (auto) 6.7, Absolute Lymphs (auto) 1.15, Nucleated RBC % 0, Sodium 142, Potassium 4.2, Chloride 109 H, Carbon Dioxide 29.0, Anion Gap 4 L, BUN 33 H, Creatinine 1.27 H, Estim Creat Clear Calc 34.28, Est GFR (MDRD) Af Amer 52 L, Est GFR (MDRD) Non-Af 43 L, BUN/Creatinine Ratio 26.0 H, Glucose 76, Calcium 9.5, Total Bilirubin 0.30, AST 22, ALT 25, Alkaline Phosphatase 62, Total Protein 6.7, Albumin 2.0 L, Globulin 4.7 H, Albumin/Globulin Ratio 0.4 L 10/27/23 10:57: POC Glucose 99 Assessment and Plan . Assessment and plan: IMPRESSIONS: 1. Acute hypoxemic respiratory failure in the setting of COVID pneumonia 2. History of paroxysmal atrial fibrillation/history of CVA/valvular heart disease/heart failure preserved ejection fraction/hypertension/hyperlipidemia Complicates care, management, recovery and prognosis. Continue home medications as indicated. RECOMMENDATIONS: 1. Supplemental oxygen to maintain saturations at or above 90%. 2. Continue remdesivir and corticosteroids as ordered. 3. Continue empiric antimicrobials to complete 7 days of therapy. 4. Intermittent Lasix to maintain euvolemic state. 5. Continue aggressive bronchopulmonary hygiene. 6. Continue Lovenox for DVT prophylaxis. Critical Care Time: 50 minutes The entirety of this encounter was done via Telemedicine Physical Exam Const oriented x3 General Appearance: cooperative and ill appearing Resp Auscultation: rales, rhonchi and diminished lung sounds Cardio Rate: tachycardic Subjective Subjective Looks somewhat marginal in terms of oxygenation but her spirits are good. Desaturates easily.
[2023-10-27 16:45] LABS: Bedside Glucose 170 mg/dL (74-106)
[2023-10-27] MEDS: Ipratropium/Albuterol Sulfate 3 ML AMPUL.NEB INHALATION (19:34)
[2023-10-27] MEDS: 0.9% Normal Saline (250mL Bag) 250 ML 15 ML IV ×2 (20:37→20:38)
[2023-10-27 21:51] LABS: Bedside Glucose 190 mg/dL (74-106)
[2023-10-28] VITALS (14 sets, daily range): BP systolic 105–145; BP diastolic 48–65; PULSE 55–65; RESP 18–26; TEMP 35.8–36.6; O2SAT 91–98; BMI 35.6
[2023-10-28 05:40] LABS: Absolute Lymphocyte Count 1.24 X10^3/uL (0.83-4.51); Absolute Neutrophil Count 7.1 X10^3/uL (2.0-7.7); Basophil# 0.01 X10^3/uL; Basophil% 0.1 % (0-1); Eosinophil# 0.09 X10^3/uL; Hematocrit 32.6 % (37-47); Hemoglobin 10.1 g/dL (12.0-15.0); Lymphocyte # 1.24 X10^3/ul (0.83-4.51); Lymphocyte % 13.5 % (19-41); Mean Corpuscular Hgb 27.6 pg (27.0-32.0); Mean Corpuscular Volume 89.1 fL (81-99); Mean Platelet Vol. 9.2 fl (6.2-12.0); Monocyte% 6.6 % (0-10); NRBC Flagged by Analyzer 0 % (0-5); Neutrophil # 7.14 X10^3/uL (2.7-7.7); Neutrophil % 77.9 % (47-70); Platelet Count 378 K/mm3 (150-450); RBC Distribution Width CV 14.8 % (11.6-14.6); RBC Distribution Width SD 48.7 fl (35.1-43.9); Red Blood Count 3.66 M/mm3 (4.2-5.4); White Blood Count 9.2 K/mm3 (4.4-11.0)
[2023-10-28] MEDS: Piperacil/Tazobactam 3.375 GM in 0.9% Normal Saline (50mL MB+) 50 ML IV ×3 (05:59→21:29)
[2023-10-28] MEDS: Levothyroxine 125 MCG Tablet PO (05:59)
[2023-10-28 06:15] LABS: ALB/GLOB Ratio 0.5 RATIO (0.9-2.4); AST(SGOT) 16 U/L (15-37); Alanine Aminotransfer ALT/SGPT 23 U/L (13-56); Albumin, Serum 1.9 g/dL (3.2-5.0); Alkaline Phosphatase 52 U/L (45-117); Anion Gap 4 (5-15); BUN 33 mg/dL (7-18); BUN/Creat Ratio 29.2 RATIO (10-20); Calcium,Total 9.2 mg/dL (8.5-10.1); Chloride 109 mmol/L (98-107); Creatinine, Serum 1.13 mg/dL (0.55-1.02); EST Glomerular Filtration Rate 49 mL/min (>60); Est Glom Filt Rate - Afr Amer 60 mL/min (>60); Estimated Creatinine Clearance 38.51 ml/min; Globulin 3.9 g/dL (2.2-4.2); Glucose 123 mg/dL (74-106); Potassium 3.8 mmol/L (3.5-5.1); Protein, Total 5.8 g/dL (6.4-8.2); Sodium Level 141 mmol/L (136-145)
[2023-10-28 06:31] LABS: Bedside Glucose 105 mg/dL (74-106)
[2023-10-28] MEDS: Losartan Potassium 50 MG Tablet PO (11:17)
[2023-10-28] MEDS: Atenolol 25 MG Tablet PO (11:17)
[2023-10-28] MEDS: Lactobacillis Acidophilus 1 CAP PO (11:18)
[2023-10-28] MEDS: guaiFENesin/D-Methorphan TAB.SR.12H 2 TABLET PO (11:18)
[2023-10-28] MEDS: dexAMETHasone 10 MG/ML Vial 6 MG IV (11:18)
[2023-10-28] MEDS: Sertraline 50 MG Tablet PO (11:18)
[2023-10-28] MEDS: Aspirin E.C. 81 MG Tablet PO (11:18)
[2023-10-28] MEDS: Enoxaparin 40 MG/0.4 ML Syringe SC (11:19)
[2023-10-28] MEDS: Nystatin Powder 15gm Bottle 1 APPLIC TOPICAL ×2 (11:20→21:31)
[2023-10-28] MEDS: Erythromycin Base 1 OPTH.TUBE 1 APPLIC EACH EYE (11:20)
[2023-10-28] MEDS: Remdesivir 100 MG in 0.9% Normal Saline (250mL Bag) 230 ML 250 MG IV (11:45)
--- NOTE | 2023-10-28 11:51 | NURSING ---
Patient 02 sats dropping to 83%-88%. Airvo at max of 95% 50L per respiratory therapist. Patient adamantly refuses bipap. Risks of low oxygen explained to patient. Patient still refuses bipap and ventilator. Patient instructed to take deep, slow breaths.
[2023-10-28] MEDS: Ipratropium/Albuterol Sulfate 3 ML AMPUL.NEB INHALATION ×2 (12:00→19:13)
--- NOTE | 2023-10-28 12:30 | PCM.PN.TICU ---
Objective Data Objective Data Vital Signs: Vital Signs Last response Temperature 35.8 C L 10/28/23 09:10 Temperature Source Oral 10/28/23 09:10 Pulse Rate 62 10/28/23 11:15 Pulse Strength Weak (1+) 10/28/23 10:00 Respiratory Rate 20 H 10/28/23 09:10 Respiratory Effort Normal, Non-Labored 10/27/23 22:00 Respiratory Depth Normal 10/27/23 22:00 Respiratory Pattern Normal 10/28/23 05:30 Blood Pressure 145/55 H 10/28/23 10:00 Blood Pressure Mean 85 10/28/23 10:00 Blood Pressure Source Monitor 10/28/23 09:10 Blood Pressure Position Semi-Fowlers 10/28/23 09:10 Blood Pressure Location Left Arm 10/28/23 09:10 Pulse Ox 98 10/28/23 09:10 Oxygen Delivery Method Airvo 10/28/23 09:10 Oxygen Flow Rate (L/min) 50 10/28/23 09:10 Fraction of Inspired Oxygen (FIO2) 87 10/28/23 09:10 I&O: I&O Last 24 Hours 10/27/23 10/28/23 10/28/23 23:59 11:59 23:59 Intake Total 96.25 / 701.25 189.04 / 189.04 Output Total 250 / 250 Balance 96.25 / 701.25 -60.96 / -60.96 I&O: Total Stay 10/22/23 12:33 thru 10/28/23 11:19 Intake Total 6068.00 Output Total 5100 Balance 968.00 Current Meds Ordered / Administered: Current meds ordered / Administered Generic Name Dose Route Start Last Admin Trade Name Freq PRN Reason Stop Dose Admin Acetaminophen 650 mg 10/22/23 17:21 Acetaminophen 325 Mg Tablet PO Q4H PRN PRN Fever, pain 1-1010 Albuterol/Ipratropium 3 ml 10/26/23 14:30 10/28/23 12:00 Ipratropium/Albuterol Sulfate 3 Ml Ampul.Neb INHALATION 3 ml Q6HWA.RT DEANN Administration Aspirin 81 mg 10/23/23 08:00 10/28/23 11:18 Aspirin E.C. 81 Mg Tablet PO 81 mg BREAKFAST DEANN Administration Atenolol 25 mg 10/28/23 10:00 07/28/24 11:17 Atenolol 25 Mg Tablet PO 25 mg DAILY DEANN Administration Protocol Atorvastatin Calcium 20 mg 10/22/23 22:00 10/27/23 19:10 Atorvastatin Calcium 20 Mg Tablet PO Not Given QHS DEANN Dexamethasone Sodium Phosphate 6 mg 10/27/23 10:00 10/28/23 11:18 Dexamethasone 10 Mg/Ml Vial IV 6 mg DAILY DEANN Administration Enoxaparin Sodium 40 mg 10/23/23 10:00 10/28/23 11:19 Enoxaparin 40 Mg/0.4 Ml Syringe SC 40 mg DAILY DEANN Administration Erythromycin 1 applic 10/22/23 18:00 10/28/23 11:20 Erythromycin Base 1 Opth.Tube EACH EYE 1 applic 4X/DAY DEANN Administration Ferrous Sulfate 325 mg 10/23/23 08:00 10/27/23 10:45 Ferrous Sulfate 325 Mg Tablet PO 325 mg Q48@0800 DEANN Administration Glucagon 1 mg 10/22/23 17:21 Glucagon 1 Mg/Ml Syringe IM X1 PRN HYPOGLYCEMIA Protocol Guaifenesin 2 tablet 10/24/23 10:00 10/28/23 11:18 Guaifenesin/D-Methorphan Tab.Sr.12h PO 2 tablet BID DEANN Administration Hydralazine HCl 10 mg 10/22/23 17:21 Hydralazine 20 Mg/Ml Vial IV Q4H PRN PRN SBP > 160 Protocol Dextrose 250 mls @ 0 mls/hr 10/22/23 17:21 Dextrose 10%-Water IV .Q0M PRN HYPOGLYCEMIA Protocol As Directed Piperacillin Sod/Tazobactam 50 mls @ 12.5 mls/hr 10/23/23 08:10 10/28/23 11:19 Sod 3.375 gm/ Sodium Chloride IV Infused Q8 DEANN Infusion Sodium Chloride 250 mls @ 15 mls/hr 10/23/23 13:27 10/27/23 20:38 IV 0 mls/hr .[id number] PRN Infusion Additional IVPB Infusion Sodium Chloride 250 mls @ 15 mls/hr 10/23/23 13:27 10/28/23 06:30 IV 0 mls/hr .[id number] PRN Infusion Saline Flush Insulin Glargine 5 unit 10/28/23 10:00 10/28/23 07:38 Insulin Glargine-Yfgn 100 Unit/Ml Pen SC Not Given DAILY [facility] Protocol Insulin Human Lispro 0 unit 10/22/23 17:21 10/28/23 11:44 Insulin Lispro 100 Unit/Ml Insuln.Pen SC Not Given ACHS [facility] Protocol Levothyroxine Sodium 125 mcg 10/23/23 06:00 10/28/23 05:59 Levothyroxine 125 Mcg Tablet PO 125 mcg DAILY@0600 DEANN Administration Losartan Potassium 50 mg 10/28/23 10:00 10/28/23 11:17 Losartan Potassium 50 Mg Tablet PO 50 mg DAILY DEANN Administration Protocol Melatonin 3 mg 10/22/23 17:21 Melatonin 3 Mg Tablet PO QHS PRN PRN INSOMNIA Nystatin 1 applic 10/22/23 22:00 10/28/23 11:20 Nystatin Powder 15gm Bottle TOPICAL 1 applic BID [facility] Administration Protocol Ondansetron HCl 4 mg 10/22/23 17:21 Ondansetron 4 Mg/2 Ml Vial IV Q8H PRN PRN NAUSEA/VOMITING Pantoprazole Sodium 20 mg 10/23/23 08:00 10/27/23 10:46 Pantoprazole Sodium 20 Mg Tablet PO 20 mg Q48@0800 DEANN Administration Polyethylene Glycol 17 gm 10/24/23 10:25 10/28/23 11:23 Polyethylene Glycol 3350 17 Gm Packet PO Not Given BID DEANN Prochlorperazine Edisylate 5 mg 10/22/23 17:21 Prochlorperazine 10 Mg/2 Ml Vial IV Q4H PRN PRN Breakthrough Nausea/Vomiting Senna/Docusate Sodium 2 tablet 10/24/23 22:00 10/28/23 11:23 Senna/Docusate Sodium 1 Tablet PO Not Given BID DEANN Sertraline HCl 50 mg 10/23/23 10:00 10/28/23 11:18 Sertraline 50 Mg Tablet PO 50 mg DAILY DEANN Administration Sodium Chloride 10 - 40 ml 10/23/23 13:27 10/26/23 05:38 0.9% Saline Lock 10 Ml Syringe IV 10 ml UD PRN Administration SALINE FLUSH Sodium Chloride 2 spray 10/26/23 08:42 10/26/23 21:33 Sodium Chloride 0.65% 1 [place] Bridge[place].Btl NASAL 2 spray TID PRN PRN Administration NASAL DRYNESS Lab / Micro Data Attestation: I reviewed the patient's lab results. 10/28/23 05:20 10/28/23 05:20 Labs: Laboratory Results - last 24 hr 10/27/23 16:25: POC Glucose 170 H 10/27/23 20:22: POC Glucose 190 H 10/28/23 05:20: WBC 9.2, RBC 3.66 L, Hgb 10.1 L, Hct 32.6 L, MCV 89.1, MCH 27.6, MCHC 31.0 L, RDW Std Deviation 48.7 H, RDW Coeff of Umu 14.8 H, Plt Count 378, MPV 9.2, Immature Gran % (Auto) 0.900, Neut % (Auto) 77.9 H, Lymph % (Auto) 13.5 L, [place] % (Auto) 6.6, Eos % (Auto) 1.0, Baso % (Auto) 0.1, Absolute Neuts (auto) 7.1, Absolute Lymphs (auto) 1.24, Nucleated RBC % 0, Sodium 141, Potassium 3.8, Chloride 109 H, Carbon Dioxide 28.0, Anion Gap 4 L, BUN 33 H, Creatinine 1.13 H, Estim Creat Clear Calc 38.51, Est GFR (MDRD) Af Amer 60, Est GFR (MDRD) Non-Af 49 L, BUN/Creatinine Ratio 29.2 H, Glucose 123 H, Calcium 9.2, Total Bilirubin 0.30, AST 16, ALT 23, Alkaline Phosphatase 52, Total Protein 5.8 L, Albumin 1.9 L, Globulin 3.9, Albumin/Globulin Ratio 0.5 L 10/28/23 05:57: POC Glucose 105 Micro: Microbiology 10/22/23 13:13 Blood Culture (Wb) - Left Hand Blood Culture - Final No growth in 5 days. ABG Data Attestation: I personally reviewed and interpreted this ABG as follows: Imaging Radiology Impression Chest X-Ray 10/27/23 07:40 IMPRESSION: Right lower lobe pneumonia and pleural effusion. Electronically Signed: Ronda Starkey MD at 18:46 EDT Reading Location ID and State: [id number] / Tel , Service support , Assessment and Plan . Assessment and plan: IMPRESSIONS: 1. Acute hypoxemic respiratory failure in the setting of COVID pneumonia. Very gradual improvement the rule, considered PE but previous CTA negative for same. 2. History of paroxysmal atrial fibrillation/history of CVA/valvular heart disease/heart failure preserved ejection fraction/hypertension/hyperlipidemia Complicates care, management, recovery and prognosis. Continue home medications as indicated. 3. Concern for oropharyngeal dysphagia-related aspiration event; [employer]OY[employer] has cleared for pureed diet with some mitigation techniques RECOMMENDATIONS: 1. Supplemental oxygen to maintain saturations at or above 90%. 2. Continue remdesivir and corticosteroids as ordered. 3. Continue empiric antimicrobials to complete 7 days of therapy. 4. Intermittent Lasix to maintain euvolemic state. 5. Continue aggressive bronchopulmonary hygiene. 6. Continue Lovenox for DVT prophylaxis. Critical Care Time: 50 minutes The entirety of this encounter was done via Telemedicine Physical Exam Const alert General Appearance: cooperative HEENT normocephalic Resp Effort and Inspection: tachypneic and uses accessory muscles Auscultation: rales and diminished lung sounds Subjective Subjective About the same, remains stuck on Airvo with attempts to wean O2 unsuccessful earlier
--- NOTE | 2023-10-28 12:50 | PCM.PN.HOSP ---
Reason for Visit Reason for Visit: Diagnoses Pneumonia, unspecified organism (10/22/23) Acute respiratory failure with hypoxia (10/22/23) Subjective Subjective Patient was seen and examined today, she continues to require Airvo, she does not appear to be short of breath at rest. Patient was cleared for oral intake today. Nursing reports patient had oxygen CT saturation today and refused BiPAP. At the time of this dictation, patient is stable on Airvo. Objective Data Objective Data Vital Signs: Vital Signs Temp Pulse Resp BP Pulse Ox O2 Del Method O2 Flow Rate 96.5 F L 65 20 H 145/55 H 98 Airvo 50 10/28/23 09:10 10/28/23 12:00 10/28/23 12:00 10/28/23 10:00 10/28/23 09:10 10/28/23 11:00 10/28/23 11:00 FiO2 95 10/28/23 11:00 Oxygen Flow Rate (L/min) 50 Oxygen Delivery Method Airvo Weight: 82.8 kg Body Mass Index (BMI) 35.6 Intake & Output: Intake and Output for Last 24 Hours 10/26/23 10/27/23 10/28/23 23:59 23:59 23:59 Intake Total 1495 / 1495 701.25 / 701.25 189.04 / 189.04 Output Total 1150 / 1150 250 / 250 Balance 345 / 345 701.25 / 701.25 -60.96 / -60.96 Lab / Micro Data 10/28/23 05:20 10/28/23 05:20 Labs: Laboratory Results - last 24 hr 10/27/23 16:25: POC Glucose 170 H 10/27/23 20:22: POC Glucose 190 H 10/28/23 05:20: WBC 9.2, RBC 3.66 L, Hgb 10.1 L, Hct 32.6 L, MCV 89.1, MCH 27.6, MCHC 31.0 L, RDW Std Deviation 48.7 H, RDW Coeff of Umu 14.8 H, Plt Count 378, MPV 9.2, Immature Gran % (Auto) 0.900, Neut % (Auto) 77.9 H, Lymph % (Auto) 13.5 L, [place] % (Auto) 6.6, Eos % (Auto) 1.0, Baso % (Auto) 0.1, Absolute Neuts (auto) 7.1, Absolute Lymphs (auto) 1.24, Nucleated RBC % 0, Sodium 141, Potassium 3.8, Chloride 109 H, Carbon Dioxide 28.0, Anion Gap 4 L, BUN 33 H, Creatinine 1.13 H, Estim Creat Clear Calc 38.51, Est GFR (MDRD) Af Amer 60, Est GFR (MDRD) Non-Af 49 L, BUN/Creatinine Ratio 29.2 H, Glucose 123 H, Calcium 9.2, Total Bilirubin 0.30, AST 16, ALT 23, Alkaline Phosphatase 52, Total Protein 5.8 L, Albumin 1.9 L, Globulin 3.9, Albumin/Globulin Ratio 0.5 L 10/28/23 05:57: POC Glucose 105 Micro: Microbiology 10/22/23 13:13 Blood Culture (Wb) - Left Hand Blood Culture - Final No growth in 5 days. 10/22/23 13:47 Urine Catheter - Catheter Urine Culture - Final Escherichia coli 10/23/23 08:55 Mucosa - Nasopharyngeal Coronavirus COVID-19 PCR - Final SARS-CoV-2 (COVID 19 PCR) 10/22/23 17:15 Mucosa - Nose Respiratory Panel (PCR) - Final 10/22/23 13:47 Urine Catheter - Catheter Legionella Antigen - Final 10/22/23 13:47 Urine Catheter - Catheter Streptococcus pneumoniae Antigen (M - Final Radiography Diagnostic Testing: Radiology Impression Chest X-Ray 10/27/23 07:40 IMPRESSION: Right lower lobe pneumonia and pleural effusion. Electronically Signed: Ronda Starkey MD at 18:46 EDT Reading Location ID and State: [id number] / Tel , Service support , Physical Exam Const alert, oriented x3 and no apparent distress General Appearance: cooperative, well kempt and well developed Orientation / Consciousness: awake, oriented to person, oriented to place and oriented to time HEENT normocephalic, head/scalp atraumatic and moist oral mucous membranes Eyes PERRL, EOMs intact bilaterally and conjunctivae normal Neck supple, no JVD, thyroid normal and no carotid bruits General: trachea midline Resp normal respiratory effort, no retractions and no use of accessory muscles Resp Narrative: Breath sounds are diminished bilaterally Auscultation: Negative for rales, rhonchi or wheezes Cardio regular rate, regular rhythm, S1 normal heart sound, S2 normal heart sound, no murmurs, no rub and no gallops GI normal to inspection, nondistended, normoactive bowel sounds, soft to palpation, non-tender and non-distended Extremity no clubbing, cyanosis or edema Skin no rashes or lesions noted General Skin Exam: no breakdown Neuro oriented x3, CN's II-XII intact bilaterally, moves all extremities, no focal motor deficits and no sensory deficits noted Sensorium / Orientation: awake and alert Speech: speech normal Psych affect normal Assessment & Plan Assessment/Plan (1) Acute hypoxemic respiratory failure: PLAN: Plan 1. Acute hypoxic respiratory failure secondary to COVID 19 pneumonia-continue present medications at this time, pulmonary medicine is participating in her care, pulse ox will be monitored #2 paroxysmal atrial fibrillation-patient remains on atenolol, patient is currently not on any full anticoagulation #3 type 2 diabetes-patient remains on sliding scale insulin, blood sugars are being checked via fingerstick blood sugars., Patient is on basal insulin also #4 chronic congestive heart failure with preserved ejection fraction-complicates care, management, recovery, and prognosis, will give IV Lasix x 1 today #5 COVID-19 pneumonia-patient remains on dexamethasone IV #5 chronic kidney disease stage IIIa-complicates care, management, recovery, and prognosis Total clinical time spent by myself addressing patient's medical issues, reviewing her data, and collaborating with patient's care team: 35 minutes Charges/Coding Visit Charges Inpatient E&M: 60280 Subs Hosp L2
[2023-10-28 13:40] LABS: Bedside Glucose 109 mg/dL (74-106)
[2023-10-28] MEDS: Furosemide 40 MG/4 ML Vial IV (14:56)
[2023-10-28] MEDS: Insulin Lispro 100 UNIT/ML INSULN.PEN SC ×2 (17:33→21:30)
[2023-10-28 19:20] LABS: Bedside Glucose 243 mg/dL (74-106)
[2023-10-28] MEDS: 0.9% Normal Saline (250mL Bag) 250 ML 15 ML IV (21:29)
[2023-10-28 21:57] LABS: Bedside Glucose 199 mg/dL (74-106)
--- NOTE | 2023-10-28 23:14 | CPS ---
Attempted PAP therapy for night time use. Patient didn't tolerate despite trying nasal mask and decreasing PAP pressures for comfort. Patient back on airvo at 50L 70%. Spo2 98% on CPOX.
[2023-10-29] VITALS (17 sets, daily range): BP systolic 88–129; BP diastolic 44–57; PULSE 57–74; RESP 14–24; TEMP 36–36.5; O2SAT 93–100; BMI 35.9
[2023-10-29 06:11] LABS: Absolute Lymphocyte Count 1.35 X10^3/uL (0.83-4.51); Absolute Neutrophil Count 8.5 X10^3/uL (2.0-7.7); Basophil# 0.02 X10^3/uL; Basophil% 0.2 % (0-1); Eosinophil# 0.14 X10^3/uL; Eosinophils% 1.3 % (0-5); Hematocrit 32.5 % (37-47); Hemoglobin 10.2 g/dL (12.0-15.0); Lymphocyte # 1.35 X10^3/ul (0.83-4.51); Lymphocyte % 12.5 % (19-41); Mean Corp Hgb Conc 31.4 g/dL (32-36); Mean Corpuscular Hgb 27.6 pg (27.0-32.0); Mean Corpuscular Volume 88.1 fL (81-99); Mean Platelet Vol. 9.7 fl (6.2-12.0); Monocyte# 0.63 X10^3/uL; Monocyte% 5.8 % (0-10); NRBC Flagged by Analyzer 0 % (0-5); Neutrophil # 8.53 X10^3/uL (2.7-7.7); Neutrophil % 79.1 % (47-70); Platelet Count 416 K/mm3 (150-450); RBC Distribution Width SD 48.2 fl (35.1-43.9); Red Blood Count 3.69 M/mm3 (4.2-5.4); White Blood Count 10.8 K/mm3 (4.4-11.0)
[2023-10-29] MEDS: Piperacil/Tazobactam 3.375 GM in 0.9% Normal Saline (50mL MB+) 50 ML IV ×3 (06:17→22:02)
[2023-10-29 06:38] LABS: ALB/GLOB Ratio 0.5 RATIO (0.9-2.4); AST(SGOT) 12 U/L (15-37); Alanine Aminotransfer ALT/SGPT 20 U/L (13-56); Alkaline Phosphatase 53 U/L (45-117); Anion Gap 5 (5-15); BUN 33 mg/dL (7-18); BUN/Creat Ratio 28.2 RATIO (10-20); Chloride 110 mmol/L (98-107); Creatinine, Serum 1.17 mg/dL (0.55-1.02); EST Glomerular Filtration Rate 47 mL/min (>60); Est Glom Filt Rate - Afr Amer 57 mL/min (>60); Estimated Creatinine Clearance 37.34 ml/min; Globulin 3.9 g/dL (2.2-4.2); Glucose 120 mg/dL (74-106); Potassium 3.5 mmol/L (3.5-5.1); Protein, Total 5.9 g/dL (6.4-8.2); Sodium Level 142 mmol/L (136-145)
[2023-10-29 06:53] LABS: Bedside Glucose 113 mg/dL (74-106)
[2023-10-29] MEDS: Ipratropium/Albuterol Sulfate 3 ML AMPUL.NEB INHALATION ×3 (07:26→20:00)
[2023-10-29] MEDS: Furosemide 40 MG/4 ML Vial IV (08:28)
--- NOTE | 2023-10-29 08:29 | PCM.PN.INT ---
Assessment & Plan Assessment/Plan (1) Acute hypoxemic respiratory failure: PLAN: Plan RECOMMENDATIONS: 1. Supplemental oxygen to maintain saturations at or above 90%. 2. Continue corticosteroids as ordered. 3. Continue empiric antimicrobials to complete 7 days of therapy. 4. Intermittent Lasix to maintain euvolemic state. 5. Continue aggressive bronchopulmonary hygiene. 6. Continue Lovenox for DVT prophylaxis. IMPRESSIONS: 1. Acute hypoxemic respiratory failure Most likely multifactorial in etiology. The patient screened positive for COVID-19 and likely has secondary bacterial pneumonia as well. In addition, I cannot discount the possibility of an underlying component of heart failure with preserved ejection fraction. CTA chest completed on October 21 ruled out PE. The patient has completed her treatment course of remdesivir and will be continued on corticosteroids along with empiric antibiotics to complete 7 days of therapy. Agree with continuing intermittent dosing of Lasix as tolerated by hemodynamics and renal function. Continue to wean supplemental oxygen to maintain saturations at or above 90%. Agree with ongoing speech therapy follow-up, given concerns for aspiration. Continue aggressive bronchopulmonary hygiene along with Lovenox for DVT prophylaxis. 2. History of paroxysmal atrial fibrillation/history of CVA/valvular heart disease/heart failure preserved ejection fraction/hypertension/hyperlipidemia Complicates care, management, recovery and prognosis. Continue home medications as indicated. This note was generated with [employer]ing[employer] dictation software. It may contain incorrect words, spelling, and punctuation that were not noted in checking the note before signing. Subjective Subjective The patient was seen and examined at the bedside this morning. Events from the last 24 hours have been reviewed. The patient is currently afebrile, hemodynamically stable and maintaining appropriate oxygen saturations on 10 L/min high flow cannula. The patient has completed her treatment course of remdesivir and remains on antibiotics and corticosteroids. Her respiratory status still remains quite tenuous. Speech therapy continues to follow-up with concerns for aspiration. Creatinine is stable. The patient continues to receive intermittent dosing of IV Lasix. Objective Data Objective Data The patient's most recent lab work, culture data and imaging studies have all been personally reviewed. Urine culture dated October 21 was positive for pansensitive E. coli. COVID-19 PCR was positive on October 22. Vital Signs: Vital Signs Temp Pulse Resp BP Pulse Ox O2 Del Method O2 Flow Rate 97.5 F L 58 L 24 H 129/49 H 94 High Flow 4 10/29/23 08:24 10/29/23 08:24 10/29/23 08:24 10/29/23 08:24 10/29/23 08:24 10/29/23 08:24 10/29/23 08:24 FiO2 50 10/29/23 07:26 Oxygen Flow Rate (L/min) 4 Oxygen Delivery Method High Flow Weight: 183 lb 13.848 oz Body Mass Index (BMI) 35.9 Intake & Output: Intake and Output for Last 24 Hours 10/27/23 10/28/23 10/29/23 23:59 23:59 23:59 Intake Total 701.25 / 701.25 513.58 / 613.58 220.75 / 220.75 Output Total 450 / 450 350 / 350 Balance 701.25 / 701.25 63.58 / 163.58 -129.25 / -129.25 Lab / Micro Data Attestation: I reviewed the patient's lab results. 10/29/23 05:57 10/29/23 05:57 Labs: Laboratory Results - last 24 hr 10/28/23 11:41: POC Glucose 109 H 10/28/23 17:31: POC Glucose 243 H 10/28/23 21:27: POC Glucose 199 H 10/29/23 05:57: WBC 10.8, RBC 3.69 L, Hgb 10.2 L, Hct 32.5 L, MCV 88.1, MCH 27.6, MCHC 31.4 L, RDW Std Deviation 48.2 H, RDW Coeff of Umu 15.0 H, Plt Count 416, MPV 9.7, Immature Gran % (Auto) 1.100 H, Neut % (Auto) 79.1 H, Lymph % (Auto) 12.5 L, [place] % (Auto) 5.8, Eos % (Auto) 1.3, Baso % (Auto) 0.2, Absolute Neuts (auto) 8.5 H, Absolute Lymphs (auto) 1.35, Nucleated RBC % 0, Sodium 142, Potassium 3.5, Chloride 110 H, Carbon Dioxide 27.0, Anion Gap 5, BUN 33 H, Creatinine 1.17 H, Estim Creat Clear Calc 37.34, Est GFR (MDRD) Af Amer 57 L, Est GFR (MDRD) Non-Af 47 L, BUN/Creatinine Ratio 28.2 H, Glucose 120 H, Calcium 9.0, Total Bilirubin 0.40, AST 12 L, ALT 20, Alkaline Phosphatase 53, Total Protein 5.9 L, Albumin 2.0 L, Globulin 3.9, Albumin/Globulin Ratio 0.5 L 10/29/23 06:16: POC Glucose 113 H Micro: Microbiology 10/22/23 13:13 Blood Culture (Wb) - Left Hand Blood Culture - Final No growth in 5 days. 10/22/23 13:47 Urine Catheter - Catheter Urine Culture - Final Escherichia coli 10/23/23 08:55 Mucosa - Nasopharyngeal Coronavirus COVID-19 PCR - Final SARS-CoV-2 (COVID 19 PCR) 10/22/23 17:15 Mucosa - Nose Respiratory Panel (PCR) - Final 10/22/23 13:47 Urine Catheter - Catheter Legionella Antigen - Final 10/22/23 13:47 Urine Catheter - Catheter Streptococcus pneumoniae Antigen (M - Final Radiography Diagnostic Testing: Radiology Impression Chest X-Ray 10/23/23 09:29 IMPRESSION: Stable examination. Electronically Signed: Andrew Merino MD at 12:28 EDT , Physical Exam Const alert and no apparent distress General Appearance: cooperative HEENT normocephalic and head/scalp atraumatic Eyes PERRL, EOMs intact bilaterally and conjunctivae normal Neck supple General: trachea midline Chest inspection of chest normal Resp normal respiratory effort and no use of accessory muscles Auscultation: diminished lung sounds Cardio regular rate and regular rhythm Heart Sounds: murmur GI normal to inspection, nondistended, normoactive bowel sounds Extremity no clubbing, cyanosis or edema Skin no rashes or lesions noted Neuro oriented x3, CN's II-XII intact bilaterally and moves all extremities Psych cooperative and affect normal Charges/Coding Visit Charges Inpatient E&M: 64177 Subs Hosp L2
--- NOTE | 2023-10-29 09:11 | CPS ---
Called to room for patient's sats in mid 80's on 14 lpm high flow nasal cannula. Patient found on 13 lpm high flow at 85% on monitor. Pulse ox checked on finger revealed 98%. Replaced pulse ox probe from ear to finger with sats in 90's. Patient on 5lpm at 96%.
[2023-10-29] MEDS: Aspirin E.C. 81 MG Tablet PO (10:46)
[2023-10-29] MEDS: Sertraline 50 MG Tablet PO (10:46)
[2023-10-29] MEDS: Ferrous Sulfate 325 MG Tablet PO (10:46)
[2023-10-29] MEDS: guaiFENesin/D-Methorphan TAB.SR.12H 2 TABLET PO ×2 (10:46→22:19)
[2023-10-29] MEDS: Lactobacillis Acidophilus 1 CAP PO ×2 (10:47→22:19)
[2023-10-29] MEDS: Pantoprazole Sodium 20 MG Tablet PO (10:47)
[2023-10-29] MEDS: dexAMETHasone 10 MG/ML Vial 6 MG IV (10:48)
[2023-10-29] MEDS: Nystatin Powder 15gm Bottle 1 APPLIC TOPICAL ×2 (10:48→22:08)
[2023-10-29] MEDS: Enoxaparin 40 MG/0.4 ML Syringe SC (10:48)
[2023-10-29 11:57] LABS: Bedside Glucose 114 mg/dL (74-106)
[2023-10-29] MEDS: Insulin Lispro 100 UNIT/ML INSULN.PEN SC ×2 (16:27→22:10)
[2023-10-29 16:47] LABS: Bedside Glucose 275 mg/dL (74-106)
--- NOTE | 2023-10-29 17:06 | PN.HOSP_ITS ---
Reason for Visit Reason for Visit: Diagnoses Pneumonia, unspecified organism (10/22/23) Acute respiratory failure with hypoxia (10/22/23) Subjective Subjective Patient was seen and examined today, she is currently on nasal cannula oxygen, I gave her another dose of Lasix today IV. Discussed the case briefly with pulmonary medicine today. Objective Data Objective Data Vital Signs: Vital Signs Temp Pulse Resp BP Pulse Ox O2 Del Method O2 Flow Rate 97.0 F L 73 16 116/57 L 99 High Flow 4 10/29/23 16:29 10/29/23 16:29 10/29/23 16:29 10/29/23 16:29 10/29/23 16:29 10/29/23 16:29 10/29/23 16:29 FiO2 50 10/29/23 07:26 Oxygen Flow Rate (L/min) 4 Oxygen Delivery Method High Flow Weight: 83.4 kg Body Mass Index (BMI) 35.9 Intake & Output: Intake and Output for Last 24 Hours 10/27/23 10/28/23 10/29/23 23:59 23:59 23:59 Intake Total 701.25 / 701.25 513.58 / 613.58 270.75 / 270.75 Output Total 450 / 450 1850 / 1850 Balance 701.25 / 701.25 63.58 / 163.58 -1579.25 / -1579.25 Lab / Micro Data 10/29/23 05:57 10/29/23 05:57 Labs: Laboratory Results - last 24 hr 10/28/23 17:31: POC Glucose 243 H 10/28/23 21:27: POC Glucose 199 H 10/29/23 05:57: WBC 10.8, RBC 3.69 L, Hgb 10.2 L, Hct 32.5 L, MCV 88.1, MCH 27.6, MCHC 31.4 L, RDW Std Deviation 48.2 H, RDW Coeff of Umu 15.0 H, Plt Count 416, MPV 9.7, Immature Gran % (Auto) 1.100 H, Neut % (Auto) 79.1 H, Lymph % (Auto) 12.5 L, [place] % (Auto) 5.8, Eos % (Auto) 1.3, Baso % (Auto) 0.2, Absolute Neuts (auto) 8.5 H, Absolute Lymphs (auto) 1.35, Nucleated RBC % 0, Sodium 142, Potassium 3.5, Chloride 110 H, Carbon Dioxide 27.0, Anion Gap 5, BUN 33 H, C reatinine 1.17 H, Estim Creat Clear Calc 37.34, Est GFR (MDRD) Af Amer 57 L, Est GFR (MDRD) Non-Af 47 L, BUN/Creatinine Ratio 28.2 H, Glucose 120 H, Calcium 9.0, Total Bilirubin 0.40, AST 12 L, ALT 20, Alkaline Phosphatase 53, Total Protein 5.9 L, Albumin 2.0 L, Globulin 3.9, Albumin/Globulin Ratio 0.5 L 10/29/23 06:16: POC Glucose 113 H 10/29/23 10:58: POC Glucose 114 H 10/29/23 16:25: POC Glucose 275 H Micro: Microbiology 10/22/23 13:13 Blood Culture (Wb) - Left Hand Blood Culture - Final No growth in 5 days. 10/22/23 13:47 Urine Catheter - Catheter Urine Culture - Final Escherichia coli 10/23/23 08:55 Mucosa - Nasopharyngeal Coronavirus COVID-19 PCR - Final SARS-CoV-2 (COVID 19 PCR) 10/22/23 17:15 Mucosa - Nose Respiratory Panel (PCR) - Final 10/22/23 13:47 Urine Catheter - Catheter Legionella Antigen - Final 10/22/23 13:47 Urine Catheter - Catheter Streptococcus pneumoniae Antigen (M - Final Physical Exam Narrative alert, oriented x3 and no apparent distress General Appearance: cooperative, well kempt and well developed Orientation / Consciousness: awake, oriented to person, oriented to place and oriented to time HEENT normocephalic, head/scalp atraumatic and moist oral mucous membranes Eyes PERRL, EOMs intact bilaterally and conjunctivae normal Neck supple, no JVD, thyroid normal and no carotid bruits General: trachea midline Resp normal respiratory effort, no retractions and no use of accessory muscles Resp Narrative: Breath sounds are diminished bilaterally Auscultation: Negative for rales, rhonchi or wheezes Cardio regular rate, regular rhythm, S1 normal heart sound, S2 normal heart sound, no murmurs, no rub and no gallops GI normal to inspection, nondistended, normoactive bowel sounds, soft to palpation, non-tender and non-distended Extremity no clubbing, cyanosis or edema Skin no rashes or lesions noted General Skin Exam: no breakdown Neuro oriented x3, CN's II-XII intact bilaterally, moves all extremities, no focal motor deficits and no sensory deficits noted Sensorium / Orientation: awake and alert Speech: speech normal Psych affect normal Assessment & Plan Assessment/Plan (1) Acute hypoxemic respiratory failure: PLAN: Plan 1. Acute hypoxic respiratory failure secondary to COVID 19 pneumonia-continue present medications at this time, pulmonary medicine is participating in her care, pulse ox will be monitored #2 paroxysmal atrial fibrillation-patient remains on atenolol, patient is currently not on any full anticoagulation #3 type 2 diabetes-patient remains on sliding scale insulin, blood sugars are being checked via fingerstick blood sugars., Patient is on basal insulin also #4 chronic congestive heart failure with preserved ejection fraction-complicates care, management, recovery, and prognosis, I have elected to place the patient on oral Lasix starting tomorrow morning #5 COVID-19 pneumonia-patient remains on dexamethasone #6 chronic kidney disease stage IIIa-complicates care, management, recovery, and prognosis #7 mild to moderate mitral stenosis Total clinical time spent by myself addressing patient's medical issues, reviewing her data, and collaborating with patient's care team: 35 minutes Charges/Coding Visit Charges Inpatient E&M: 22267 Subs Hosp L2
[2023-10-29] MEDS: Polyethylene Glycol 3350 17 GM PACKET PO (22:06)
[2023-10-29] MEDS: Senna/Docusate Sodium 1 Tablet 2 TABLET PO (22:08)
[2023-10-29] MEDS: Atorvastatin Calcium 20 MG Tablet PO (22:17)
[2023-10-29 22:31] LABS: Bedside Glucose 175 mg/dL (74-106)
[2023-10-30] VITALS (13 sets, daily range): BP systolic 116–143; BP diastolic 46–58; PULSE 61–66; RESP 14–22; TEMP 36.1–36.6; O2SAT 4–100; BMI 34.2
[2023-10-30 04:21] LABS: Absolute Neutrophil Count 10.8 X10^3/uL (2.0-7.7); Basophil# 0.01 X10^3/uL; Basophil% 0.1 % (0-1); Eosinophils% 0.8 % (0-5); Hematocrit 34.4 % (37-47); Hemoglobin 10.8 g/dL (12.0-15.0); Lymphocyte % 9.3 % (19-41); Mean Corp Hgb Conc 31.4 g/dL (32-36); Mean Corpuscular Volume 89.1 fL (81-99); Mean Platelet Vol. 9.6 fl (6.2-12.0); Monocyte% 5.4 % (0-10); NRBC Flagged by Analyzer 0 % (0-5); Neutrophil # 10.83 X10^3/uL (2.7-7.7); Neutrophil % 83.4 % (47-70); Platelet Count 418 K/mm3 (150-450); RBC Distribution Width CV 15.2 % (11.6-14.6); RBC Distribution Width SD 48.1 fl (35.1-43.9); Red Blood Count 3.86 M/mm3 (4.2-5.4)
[2023-10-30 04:40] LABS: ALB/GLOB Ratio 0.5 RATIO (0.9-2.4); AST(SGOT) 11 U/L (15-37); Alanine Aminotransfer ALT/SGPT 17 U/L (13-56); Albumin, Serum 2.1 g/dL (3.2-5.0); Alkaline Phosphatase 54 U/L (45-117); Anion Gap 4 (5-15); BUN 37 mg/dL (7-18); BUN/Creat Ratio 30.6 RATIO (10-20); Calcium,Total 9.2 mg/dL (8.5-10.1); Chloride 109 mmol/L (98-107); Creatinine, Serum 1.21 mg/dL (0.55-1.02); EST Glomerular Filtration Rate 46 mL/min (>60); Est Glom Filt Rate - Afr Amer 55 mL/min (>60); Glucose 150 mg/dL (74-106); Potassium 3.5 mmol/L (3.5-5.1); Protein, Total 6.1 g/dL (6.4-8.2); Sodium Level 141 mmol/L (136-145)
[2023-10-30] MEDS: Piperacil/Tazobactam 3.375 GM in 0.9% Normal Saline (50mL MB+) 50 ML IV ×3 (06:07→21:30)
[2023-10-30] MEDS: Levothyroxine 125 MCG Tablet PO (06:07)
[2023-10-30 06:28] LABS: Bedside Glucose 126 mg/dL (74-106)
[2023-10-30] MEDS: Ipratropium/Albuterol Sulfate 3 ML AMPUL.NEB INHALATION (07:32)
--- NOTE | 2023-10-30 08:23 | PCM.PN.INT ---
Assessment & Plan Assessment/Plan (1) Acute hypoxemic respiratory failure: PLAN: Plan RECOMMENDATIONS: 1. Supplemental oxygen to maintain saturations at or above 90%. 2. Continue corticosteroids. 3. Continue empiric antimicrobials to complete 7 days of therapy. 4. Lasix to maintain euvolemic state. 5. Continue aggressive bronchopulmonary hygiene. 6. Continue Lovenox for DVT prophylaxis. IMPRESSIONS: 1. Acute hypoxemic respiratory failure Most likely multifactorial in etiology. The patient screened positive for COVID-19 and likely has secondary bacterial pneumonia as well. In addition, I cannot discount the possibility of an underlying component of heart failure with preserved ejection fraction. CTA chest completed on October 21 ruled out PE. The patient has completed her treatment course of remdesivir and will be continued on corticosteroids along with empiric antibiotics to complete 7 days of therapy. Agree with continuing intermittent dosing of Lasix as tolerated by hemodynamics and renal function. Continue to wean supplemental oxygen to maintain saturations at or above 90%. Agree with ongoing speech therapy follow-up, given concerns for aspiration. Continue aggressive bronchopulmonary hygiene along with Lovenox for DVT prophylaxis. I have no new additional recommendations from a pulmonary perspective. 2. History of paroxysmal atrial fibrillation/history of CVA/valvular heart disease/heart failure preserved ejection fraction/hypertension/hyperlipidemia Complicates care, management, recovery and prognosis. Continue home medications as indicated. This note was generated with [employer] dictation software. It may contain incorrect words, spelling, and punctuation that were not noted in checking the note before signing. Subjective Subjective The patient was seen and examined at the bedside this morning. Events from the last 24 hours have been reviewed. The patient is currently afebrile, hemodynamically stable and maintaining appropriate oxygen saturations on 4 L/min via nasal cannula. White count is mildly elevated at 13,000. Creatinine is stable at 1.2. The patient continues to slowly improve from a respiratory perspective. Objective Data Objective Data The patient's most recent lab work, culture data and imaging studies have all been personally reviewed. Urine culture dated October 21 was positive for pansensitive E. coli. COVID-19 PCR was positive on October 22. Vital Signs: Vital Signs Temp Pulse Resp BP Pulse Ox O2 Del Method O2 Flow Rate 97.4 F L 61 20 H 118/57 L 4 Nasal Cannula 4 10/30/23 04:00 10/30/23 07:32 10/30/23 07:32 10/30/23 04:00 10/30/23 07:33 10/30/23 07:33 10/30/23 07:33 FiO2 50 10/29/23 07:26 Oxygen Flow Rate (L/min) 4 Oxygen Delivery Method Nasal Cannula Weight: 175 lb 7.807 oz Body Mass Index (BMI) 34.2 Intake & Output: Intake and Output for Last 24 Hours 10/28/23 10/29/23 10/30/23 23:59 23:59 23:59 Intake Total 513.58 / 613.58 320.75 / 320.75 300 / 300 Output Total 450 / 450 1850 / 1850 Balance 63.58 / 163.58 -1529.25 / -1529.25 300 / 300 Lab / Micro Data Attestation: I reviewed the patient's lab results. 10/30/23 04:13 10/30/23 04:13 Labs: Laboratory Results - last 24 hr 10/29/23 10:58: POC Glucose 114 H 10/29/23 16:25: POC Glucose 275 H 10/29/23 22:04: POC Glucose 175 H 10/30/23 04:13: WBC 13.0 H, RBC 3.86 L, Hgb 10.8 L, Hct 34.4 L, MCV 89.1, MCH 28.0, MCHC 31.4 L, RDW Std Deviation 48.1 H, RDW Coeff of Umu 15.2 H, Plt Count 418, MPV 9.6, Immature Gran % (Auto) 1.000 H, Neut % (Auto) 83.4 H, Lymph % (Auto) 9.3 L, Kay % (Auto) 5.4, Eos % (Auto) 0.8, Baso % (Auto) 0.1, Absolute Neuts (auto) 10.8 H, Absolute Lymphs (auto) 1.20, Nucleated RBC % 0, Sodium 141, Potassium 3.5, Chloride 109 H, Carbon Dioxide 28.0, Anion Gap 4 L, BUN 37 H, Creatinine 1.21 H, Estim Creat Clear Calc 35.20, Est GFR (MDRD) Af Amer 55 L, Est GFR (MDRD) Non-Af 46 L, BUN/Creatinine Ratio 30.6 H, Glucose 150 H, Calcium 9.2, Total Bilirubin 0.50, AST 11 L, ALT 17, Alkaline Phosphatase 54, Total Protein 6.1 L, Albumin 2.1 L, Globulin 4.0, Albumin/Globulin Ratio 0.5 L 10/30/23 06:06: POC Glucose 126 H Micro: Microbiology 10/22/23 13:13 Blood Culture (Wb) - Left Hand Blood Culture - Final No growth in 5 days. 10/22/23 13:47 Urine Catheter - Catheter Urine Culture - Final Escherichia coli 10/23/23 08:55 Mucosa - Nasopharyngeal Coronavirus COVID-19 PCR - Final SARS-CoV-2 (COVID 19 PCR) 10/22/23 17:15 Mucosa - Nose Respiratory Panel (PCR) - Final 10/22/23 13:47 Urine Catheter - Catheter Legionella Antigen - Final 10/22/23 13:47 Urine Catheter - Catheter Streptococcus pneumoniae Antigen (M - Final Radiography Diagnostic Testing: Radiology Impression Chest X-Ray 10/23/23 09:29 IMPRESSION: Stable examination. Electronically Signed: Andrew Merino MD at 12:28 EDT , Physical Exam Const alert and no apparent distress General Appearance: cooperative HEENT normocephalic and head/scalp atraumatic Eyes PERRL, EOMs intact bilaterally and conjunctivae normal Neck supple General: trachea midline Chest inspection of chest normal Resp normal respiratory effort and no use of accessory muscles Auscultation: diminished lung sounds Cardio regular rate and regular rhythm Heart Sounds: murmur GI normal to inspection, nondistended, normoactive bowel sounds Extremity no clubbing, cyanosis or edema Skin no rashes or lesions noted Neuro oriented x3, CN's II-XII intact bilaterally and moves all extremities Psych cooperative and affect normal Charges/Coding Visit Charges Inpatient E&M: 57698 Subs Hosp L2
[2023-10-30] MEDS: Enoxaparin 40 MG/0.4 ML Syringe SC (09:29)
[2023-10-30] MEDS: Lactobacillis Acidophilus 1 CAP PO ×2 (09:29→21:14)
[2023-10-30] MEDS: Aspirin E.C. 81 MG Tablet PO (09:29)
[2023-10-30] MEDS: guaiFENesin/D-Methorphan TAB.SR.12H 2 TABLET PO ×2 (09:29→21:14)
[2023-10-30] MEDS: Losartan Potassium 50 MG Tablet PO (09:30)
[2023-10-30] MEDS: dexAMETHasone 4 MG Tablet 6 MG PO (09:30)
[2023-10-30] MEDS: Sertraline 50 MG Tablet PO (09:30)
[2023-10-30] MEDS: Furosemide 40 MG Tablet PO (09:30)
[2023-10-30] MEDS: Nystatin Powder 15gm Bottle 1 APPLIC TOPICAL ×2 (09:30→21:21)
[2023-10-30] MEDS: Atenolol 25 MG Tablet PO (09:30)
[2023-10-30] MEDS: Insulin Lispro 100 UNIT/ML INSULN.PEN SC ×3 (11:26→21:14)
[2023-10-30] MEDS: Insulin Glargine-YFGN 100 UNIT/ML Pen SC (11:26)
[2023-10-30 11:47] LABS: Bedside Glucose 164 mg/dL (74-106)
--- NOTE | 2023-10-30 13:52 | PN.HOSP_ITS ---
Reason for Visit Reason for Visit: Diagnoses Pneumonia, unspecified organism (10/22/23) Acute respiratory failure with hypoxia (10/22/23) Subjective Subjective Patient was seen and examined today, she is currently on 2 L via nasal cannula at the time my examination today, patient states that she would rather go home then go to an extended care facility for short-term rehab services. I will need to obtain a walking pulse oximeter on the patient to set up home oxygen. Objective Data Objective Data Vital Signs: Vital Signs Temp Pulse Resp BP Pulse Ox O2 Del Method O2 Flow Rate 97.0 F L 62 19 H 143/55 H 94 Nasal Cannula 2 10/30/23 09:27 10/30/23 09:27 10/30/23 09:27 10/30/23 09:27 10/30/23 13:08 10/30/23 10:00 10/30/23 13:08 FiO2 50 10/29/23 07:26 Oxygen Flow Rate (L/min) [ 10 AMBULATING with Oxygen #1] Oxygen Flow Rate (L/min) [At 2 REST with Oxygen] Oxygen Flow Rate (L/min) 2 Oxygen Delivery Method Nasal Cannula Weight: 79.6 kg Body Mass Index (BMI) 34.2 Intake & Output: Intake and Output for Last 24 Hours 10/28/23 10/29/23 10/30/23 23:59 23:59 23:59 Intake Total 513.58 / 613.58 320.75 / 320.75 350 / 350 Output Total 450 / 450 1850 / 1850 Balance 63.58 / 163.58 -1529.25 / -1529.25 350 / 350 Lab / Micro Data 10/30/23 04:13 10/30/23 04:13 Labs: Laboratory Results - last 24 hr 10/29/23 16:25: POC Glucose 275 H 10/29/23 22:04: POC Glucose 175 H 10/30/23 04:13: WBC 13.0 H, RBC 3.86 L, Hgb 10.8 L, Hct 34.4 L, MCV 89.1, MCH 28.0, MCHC 31.4 L, RDW Std Deviation 48.1 H, RDW Coeff of Umu 15.2 H, Plt Count 418, MPV 9.6, Immature Gran % (Auto) 1.000 H, Neut % (Auto) 83.4 H, Lymph % (Auto) 9.3 L, [place] % (Auto) 5.4, Eos % (Auto) 0.8, Baso % (Auto) 0.1, Absolute Neuts (auto) 10.8 H, Absolute Lymphs (auto) 1.20, Nucleated RBC % 0, Sodium 141, Potassium 3.5, Chloride 109 H, Carbon Dioxide 28.0, Anion Gap 4 L, BUN 37 H, C reatinine 1.21 H, Estim Creat Clear Calc 35.20, Est GFR (MDRD) Af Amer 55 L, Est GFR (MDRD) Non-Af 46 L, BUN/Creatinine Ratio 30.6 H, Glucose 150 H, Calcium 9.2, Total Bilirubin 0.50, AST 11 L, ALT 17, Alkaline Phosphatase 54, Total Protein 6.1 L, Albumin 2.1 L, Globulin 4.0, Albumin/Globulin Ratio 0.5 L 10/30/23 06:06: POC Glucose 126 H 10/30/23 11:25: POC Glucose 164 H Micro: Microbiology 10/22/23 13:13 Blood Culture (Wb) - Left Hand Blood Culture - Final No growth in 5 days. 10/22/23 13:47 Urine Catheter - Catheter Urine Culture - Final Escherichia coli 10/23/23 08:55 Mucosa - Nasopharyngeal Coronavirus COVID-19 PCR - Final SARS-CoV-2 (COVID 19 PCR) 10/22/23 17:15 Mucosa - Nose Respiratory Panel (PCR) - Final 10/22/23 13:47 Urine Catheter - Catheter Legionella Antigen - Final 10/22/23 13:47 Urine Catheter - Catheter Streptococcus pneumoniae Antigen (M - Final Physical Exam Narrative alert, oriented x3 and no apparent distress General Appearance: cooperative, well kempt and well developed Orientation / Consciousness: awake, oriented to person, oriented to place and oriented to time HEENT normocephalic, head/scalp atraumatic and moist oral mucous membranes Eyes PERRL, EOMs intact bilaterally and conjunctivae normal Neck supple, no JVD, thyroid normal and no carotid bruits General: trachea midline Resp normal respiratory effort, no retractions and no use of accessory muscles Resp Narrative: Breath sounds are diminished bilaterally Auscultation: Negative for rales, rhonchi or wheezes Cardio regular rate, regular rhythm, S1 normal heart sound, S2 normal heart sound, no murmurs, no rub and no gallops GI normal to inspection, nondistended, normoactive bowel sounds, soft to palpation, non-tender and non-distended Extremity no clubbing, cyanosis or edema Skin no rashes or lesions noted General Skin Exam: no breakdown Neuro oriented x3, CN's II-XII intact bilaterally, moves all extremities, no focal motor deficits and no sensory deficits noted Sensorium / Orientation: awake and alert Speech: speech normal Psych affect normal Assessment & Plan Assessment/Plan (1) Acute hypoxemic respiratory failure: PLAN: Plan 1. Acute hypoxic respiratory failure secondary to COVID 19 pneumonia-continue present medications at this time, pulmonary medicine is participating in her care, pulse ox will be monitored #2 paroxysmal atrial fibrillation-patient remains on atenolol, patient is currently not on any full anticoagulation, this was evidently discussed with the patient by cardiology and cardiology did not feel that she needed anticoagulation #3 type 2 diabetes-patient remains on sliding scale insulin, blood sugars are being checked via fingerstick blood sugars., Patient is on basal insulin also #4 chronic congestive heart failure with preserved ejection fraction-complicates care, management, recovery, and prognosis, I have elected to place the patient on oral Lasix starting tomorrow morning #5 COVID-19 pneumonia-patient remains on dexamethasone #6 chronic kidney disease stage IIIa-complicates care, management, recovery, and prognosis #7 mild to moderate mitral stenosis Total clinical time spent by myself addressing patient's medical issues, reviewing her data, and collaborating with patient's care team: 35 minutes Charges/Coding Visit Charges Inpatient E&M: 71517 Subs Hosp L2
[2023-10-30 16:50] LABS: Bedside Glucose 270 mg/dL (74-106)
[2023-10-30] MEDS: Atorvastatin Calcium 20 MG Tablet PO (21:14)
[2023-10-30 22:55] LABS: Bedside Glucose 226 mg/dL (74-106)
[2023-10-31] VITALS (9 sets, daily range): BP systolic 118–158; BP diastolic 51–84; PULSE 58–71; RESP 15–18; TEMP 36.4–36.5; O2SAT 84–100; BMI 34.3
[2023-10-31] MEDS: Piperacil/Tazobactam 3.375 GM in 0.9% Normal Saline (50mL MB+) 50 ML IV (06:01)
[2023-10-31] MEDS: Levothyroxine 125 MCG Tablet PO (06:01)
[2023-10-31 07:03] LABS: Bedside Glucose 98 mg/dL (74-106)
[2023-10-31] MEDS: Ipratropium/Albuterol Sulfate 3 ML AMPUL.NEB INHALATION ×2 (07:15→12:36)
--- NOTE | 2023-10-31 07:18 | PN.CC_ITS ---
Assessment & Plan Assessment/Plan (1) Acute hypoxemic respiratory failure: PLAN: Plan RECOMMENDATIONS: 1. Supplemental oxygen to maintain saturations at or above 90%. 2. Continue corticosteroids to finish 10 days of therapy. 3. Continue empiric antimicrobials to complete 7 days of therapy. 4. Lasix to maintain euvolemic state. 5. Continue aggressive bronchopulmonary hygiene. 6. Continue Lovenox for DVT prophylaxis. 7. Perform walking oximetry study prior to consideration for discharge home. The patient can be discharged when she is able to ambulate with 6 L/min or less of supplemental oxygen. 8. I have no further recommendations from a pulmonary perspective. Will sign off at this time. Please call with any additional questions. IMPRESSIONS: 1. Acute hypoxemic respiratory failure Most likely multifactorial in etiology. The patient screened positive for COVID-19 and likely has secondary bacterial pneumonia as well. In addition, I cannot discount the possibility of an underlying component of heart failure with preserved ejection fraction. CTA chest completed on October 21 ruled out PE. The patient has completed her treatment course of remdesivir and will be continued on corticosteroids along with empiric antibiotics to complete 7 days of therapy. Agree with continuing intermittent dosing of Lasix as tolerated by hemodynamics and renal function. Continue to wean supplemental oxygen to maintain saturations at or above 90%. Agree with ongoing speech therapy follow-up, given concerns for aspiration. Continue aggressive bronchopulmonary hygiene along with Lovenox for DVT prophylaxis. I have no new additional recommendations from a pulmonary perspective. 2. History of paroxysmal atrial fibrillation/history of CVA/valvular heart disease/heart failure preserved ejection fraction/hypertension/hyperlipidemia Complicates care, management, recovery and prognosis. Continue home medications as indicated. This note was generated with [employer] dictation software. It may contain incorrect words, spelling, and punctuation that were not noted in checking the note before signing. Subjective Subjective The patient was seen and examined at the bedside this morning. Events from the last 24 hours have been reviewed. The patient is currently afebrile, hemodynamically stable and maintaining appropriate oxygen saturations on 2 L/min via nasal cannula. At the time of my interview with the patient this morning, she was maintaining saturations of 100% on her nasal cannula oxygen. The patient has no specific complaints this morning. Objective Data Objective Data The patient's most recent lab work, culture data and imaging studies have all been personally reviewed. Urine culture dated October 21 was positive for pansensitive E. coli. COVID-19 PCR was positive on October 22. Vital Signs: Vital Signs Temp Pulse Resp BP Pulse Ox O2 Del Method O2 Flow Rate 97.6 F L 65 18 158/84 H 93 Nasal Cannula 2 10/31/23 04:00 10/31/23 07:15 10/31/23 07:15 10/31/23 04:00 10/31/23 07:15 10/31/23 07:15 10/31/23 07:15 FiO2 50 10/29/23 07:26 Oxygen Flow Rate (L/min) [ 10 AMBULATING with Oxygen #1] Oxygen Flow Rate (L/min) [At 2 REST with Oxygen] Oxygen Flow Rate (L/min) 2 Oxygen Delivery Method Nasal Cannula Weight: 175 lb 11.335 oz Body Mass Index (BMI) 34.3 Intake & Output: Intake and Output for Last 24 Hours 10/29/23 10/30/23 10/31/23 23:59 23:59 23:59 Intake Total 320.75 / 320.75 400 / 400 50 / 50 Output Total 1850 / 1850 0 / 0 Balance -1529.25 / -1529.25 400 / 400 50 / 50 Lab / Micro Data Attestation: I reviewed the patient's lab results. 10/30/23 04:13 10/31/23 07:15 Labs: Laboratory Results - last 24 hr 10/30/23 11:25: POC Glucose 164 H 10/30/23 16:29: POC Glucose 270 H 10/30/23 21:10: POC Glucose 226 H 10/31/23 06:06: POC Glucose 98 Micro: Microbiology 10/22/23 13:13 Blood Culture (Wb) - Left Hand Blood Culture - Final No growth in 5 days. 10/22/23 13:47 Urine Catheter - Catheter Urine Culture - Final Escherichia coli 10/23/23 08:55 Mucosa - Nasopharyngeal Coronavirus COVID-19 PCR - Final SARS-CoV-2 (COVID 19 PCR) 10/22/23 17:15 Mucosa - Nose Respiratory Panel (PCR) - Final 10/22/23 13:47 Urine Catheter - Catheter Legionella Antigen - Final 10/22/23 13:47 Urine Catheter - Catheter Streptococcus pneumoniae Antigen (M - Final Radiography Diagnostic Testing: Radiology Impression Chest X-Ray 10/23/23 09:29 IMPRESSION: Stable examination. Electronically Signed: Andrew Merino MD at 12:28 EDT , Physical Exam Const alert and no apparent distress General Appearance: cooperative HEENT normocephalic and head/scalp atraumatic Eyes PERRL, EOMs intact bilaterally and conjunctivae normal Neck supple General: trachea midline Chest inspection of chest normal Resp normal respiratory effort and no use of accessory muscles Auscultation: diminished lung sounds Cardio regular rate and regular rhythm Heart Sounds: murmur GI normal to inspection, nondistended, normoactive bowel sounds Extremity no clubbing, cyanosis or edema Skin no rashes or lesions noted Neuro oriented x3, CN's II-XII intact bilaterally and moves all extremities Psych cooperative and affect normal Charges/Coding Visit Charges Inpatient E&M: 63865 Subs Hosp L2
[2023-10-31 08:15] LABS: ALB/GLOB Ratio 0.5 RATIO (0.9-2.4); AST(SGOT) 9 U/L (15-37); Alanine Aminotransfer ALT/SGPT 17 U/L (13-56); Alkaline Phosphatase 55 U/L (45-117); Anion Gap 5 (5-15); BUN 35 mg/dL (7-18); BUN/Creat Ratio 29.7 RATIO (10-20); Calcium,Total 9.2 mg/dL (8.5-10.1); Chloride 110 mmol/L (98-107); Creatinine, Serum 1.18 mg/dL (0.55-1.02); EST Glomerular Filtration Rate 47 mL/min (>60); Est Glom Filt Rate - Afr Amer 57 mL/min (>60); Estimated Creatinine Clearance 36.12 ml/min; Globulin 4.2 g/dL (2.2-4.2); Glucose 98 mg/dL (74-106); Potassium 3.3 mmol/L (3.5-5.1); Protein, Total 6.2 g/dL (6.4-8.2); Sodium Level 141 mmol/L (136-145)
[2023-10-31] MEDS: Ferrous Sulfate 325 MG Tablet PO (08:52)
[2023-10-31] MEDS: Pantoprazole Sodium 20 MG Tablet PO (08:52)
[2023-10-31] MEDS: Aspirin E.C. 81 MG Tablet PO (08:52)
[2023-10-31] MEDS: guaiFENesin/D-Methorphan TAB.SR.12H 2 TABLET PO (08:52)
[2023-10-31] MEDS: Atenolol 25 MG Tablet PO (08:53)
[2023-10-31] MEDS: Sertraline 50 MG Tablet PO (08:53)
[2023-10-31] MEDS: Lactobacillis Acidophilus 1 CAP PO (08:53)
[2023-10-31] MEDS: dexAMETHasone 4 MG Tablet 6 MG PO (08:54)
[2023-10-31] MEDS: Furosemide 40 MG Tablet PO (08:54)
[2023-10-31] MEDS: Enoxaparin 40 MG/0.4 ML Syringe SC (08:55)
[2023-10-31] MEDS: Nystatin Powder 15gm Bottle 1 APPLIC TOPICAL (08:56)
[2023-10-31] MEDS: Insulin Glargine-YFGN 100 UNIT/ML Pen SC (09:02)
[2023-10-31] MEDS: 0.9% Saline Lock 10 ML Syringe IV (10:25)
--- NOTE | 2023-10-31 11:26 | CHAPLAIN ---
Type of Pastoral Visit ___ Initial Visit ___ Follow-up Visit ___ On-call Visit ___ General Patient Visit ___ Spiritual Assessment ___ Family Conference ___ Bereavement ___ Rapid Response ___ Code Blue ___ Other (describe below) Pastoral Care Referral From ___ Patient ___ Family ___ Nurse ___ Physician ___ Magazine Editor ___ Shipping Support ___ Other (describe below) Sacrament/Intervention ___ Active listening ___ Anointing ___ Pentecostalism ___ Bereavement ___ Communion ___ [place] exploration ___ ___ Life review ___ Prayer ___ Reconciliation ___ Sacrament of Sick ___ Supportive presence ___ Wedding ___ Other (describe below) Pastoral Comments phone call made into isolation room; patient is able to answer the phone and talk; pt states that she has made improvements and is now out of isolation; pt welcomes spiritual care and prayer over the phone; pt is a member of a local christianity and identifies self as a believer who experiences the goodness of God and His peace in my life; pt responds to questions that she is not in need of anything at this time and that she does not mind having been in isolation as I'm used to the quiet in my home which is quieter than the hospital;
[2023-10-31] MEDS: Insulin Lispro 100 UNIT/ML INSULN.PEN SC (11:57)
[2023-10-31 12:17] LABS: Bedside Glucose 233 mg/dL (74-106)
--- NOTE | 2023-10-31 13:31 | PCM.HOSP.N ---
Hospitalist Note Oxygen testing reviewed, patient is ambulatory in the home and community and requires home oxygen with portability. Patient requires 2 L of oxygen when ambulating.
--- NOTE | 2023-10-31 13:33 | DCINST_ITS ---
Discharge Instructions Diet Discharge Diet: - (Meds whole in applesauce, chin tuck for all p.o. intake) Activity Discharge Activity: Return to Normal Activity Weight Bearing Status: Full weight bearing Follow Up Care Test Results: Test results from this visit will be discussed in further detail at your follow- up appointment, if applicable. Discharge Plan Admission Admit Date/Time: 10/22/23 15:39 Primary Reason for Your Visit: COVID-19 pneumonia Attending Provider: Jovanni Sanchez Primary Care Provider: Flavia Aldrich Consulting Providers: Patricia Villarreal; Mateo Talamantes Discharge Orders/Prescriptions Prescriptions: New furosemide 40 mg Tablet 40 mg PO DAILY Qty: 30 0RF Continued fish oil-dha-epa 1,200-144-216 mg capsule 1,200 cap PO DAILY esomeprazole magnesium [Nexium] 20 mg capsule,delayed release(DR/EC) 20 mg PO .QOD atenolol 25 mg tablet 50 mg PO DAILY levothyroxine [Synthroid] 125 mcg tablet 125 mcg PO DAILY losartan 50 mg tablet 100 mg PO DAILY simvastatin 40 mg tablet 40 mg PO DAILY ferrous sulfate [FeroSul] 325 mg (65 mg iron) tablet 325 mg PO Q OTHER DAY glimepiride 1 mg tablet 1 mg PO DAILY multivitamin 1 EACH tablet 1 ea PO DAILY Januvia 50 MG tablet 50 mg PO DAILY magnesium oxide 400 MG tablet 400 mg PO DAILYCM nystatin [Nyamyc] 100,000 unit/gram powder 1 applic topical BID Protocol: *Topical Application Instructions APPLICATION INSTRUCTIONS: apply to affected areas sertraline 50 MG tablet 50 mg PO DAILY ondansetron 4 mg tablet,disintegrating 4 mg PO Q8H PRN (Reason: nausea and vomiting) Qty: 14 0RF aspirin 81 mg tablet,delayed release (DR/EC) 81 mg PO BREAKFAST Referrals / Follow Up: Flavia Aldrich MD [Primary Care Provider] - In 1 Week Disposition Disposition (needs filled in before D/C Order can be placed): Home Health Service
--- NOTE | 2023-10-31 13:41 | PCM.DC.SUM ---
Providers Date of Admission: 10/22/23 Date of Discharge: 10/31/23 Primary Care Physician: Dr. Flavia Aldrich MD Consultations 10/23/23 05:30 Consult: [employer] / Pulmonary Medicine Routine Consulting Provider: [facility]/Pulmonary Med Reason for Consult: acute hypoxic resp failure w/ severe PNA EMERGENT Consult: No MD Notified: Yes Date Notified: 10/23/23 Time Notified: 06:17 Method of Notification: Text Reason For Visit: PNA, ACUTE HYPOXIA Diagnosis Discharge Diagnosis (1) Acute hypoxemic respiratory failure: Status: Acute Code(s): J96.01 - Acute respiratory failure with hypoxia Plan 1. Acute hypoxic respiratory failure secondary to COVID 19 pneumonia-continue present medications at this time, pulmonary medicine is participating in her care, pulse ox will be monitored #2 paroxysmal atrial fibrillation-patient remains on atenolol, patient is currently not on any full anticoagulation, this was evidently discussed with the patient by cardiology and cardiology did not feel that she needed anticoagulation #3 type 2 diabetes-patient remains on sliding scale insulin, blood sugars are being checked via fingerstick blood sugars., Patient is on basal insulin also #4 Acute on chronic congestive heart failure with preserved ejection fraction-complicates care, management, recovery, and prognosis, I have elected to place the patient on oral Lasix starting tomorrow morning #5 COVID-19 pneumonia-patient remains on dexamethasone #6 chronic kidney disease stage IIIa-complicates care, management, recovery, and prognosis #7 mild to moderate mitral stenosis #8 suspected community-acquired pneumonia Total clinical time spent by myself addressing patient's medical issues, reviewing her data, and collaborating with patient's care team: 35 minutes Medications at Discharge Home Medications multivitamin 1 ea PO DAILY supplement 09/08/16 sitagliptin phosphate 50 mg tablet (Januvia) 50 mg PO DAILY diabetes 06/16/19 fish oil-dha-epa 1,200 mg-144 mg-216 mg capsule 1,200 cap PO DAILY Supplement 09/01/19 magnesium oxide 400 mg (241.3 mg magnesium) tablet 400 mg PO DAILYCM Supplement 09/17/20 nystatin 100,000 unit/gram topical powder (Nyamyc) 1 applic topical BID Redness 09/17/20 sertraline 50 mg tablet 50 mg PO DAILY Mood 09/17/20 ondansetron 4 mg disintegrating tablet 4 mg PO Q8H PRN nausea and vomiting #14 tabs 12/22/21 aspirin 81 mg tablet,delayed release 81 mg PO BREAKFAST Heart health 03/06/22 atenolol 25 mg tablet 50 mg PO DAILY blood pressure 02/15/23 esomeprazole magnesium 20 mg capsule,delayed release (Nexium) 20 mg PO .QOD GERD 02/15/23 ferrous sulfate 325 mg (65 mg iron) tablet (FeroSul) 325 mg PO Q OTHER DAY supplement 02/15/23 glimepiride 1 mg tablet 1 mg PO DAILY diabetes 02/15/23 levothyroxine 125 mcg tablet (Synthroid) 125 mcg PO DAILY thyroid 02/15/23 losartan 50 mg tablet 100 mg PO DAILY blood pressure 02/15/23 simvastatin 40 mg tablet 40 mg PO DAILY cholesterol 02/15/23 furosemide 40 mg tablet 40 mg PO DAILY #30 tabs 10/31/23 Hospital Course Operations None Procedures None Summary of Care Provided Minutes Spent on Discharge: 31 Hospital Course: This 78-year-old white female presented to the emergency room with complaints of dyspnea, she had been feeling ill for approximately a week. Patient complained of generalized myalgias and fatigue. Patient wears home oxygen at night only because she cannot tolerate a CPAP mask. Workup in the emergency room included chest x-ray which showed a right lower lobe effusion with bibasilar infiltrates, white blood cell count was normal, hemoglobin was 10.5, chemistry profile was remarkable for creatinine of 1.49 and a BUN of 30. Urinalysis showed 5-10 white cells and +[address] of the chest was performed and it did not reveal any pulmonary embolism. There is noted to be consolidative changes and effusion bilaterally. Patient required supplemental oxygen to maintain her pulse ox above 90%. Patient was given IV Rocephin and Zithromax, she was admitted to PCU and pulse ox was monitored, patient was seen in consultation by pulmonary medicine who ordered a COVID PCR which was positive. Patient was placed on IV dexamethasone and remdesivir. Patient was felt to have probable community-acquired pneumonia with a backdrop of COVID-19 pneumonia. Patient improved slowly during her hospitalization, this examiner felt that there was a component of congestive heart failure and the patient was given diuretics and improved after diuretics were administered. Patient was seen by PT and OT as well as speech therapy. On 10/31/2023, patient was seen and examined: On examination she appeared in good health and spirits, she does not appear to be in any distress. Vital signs as documented. Skin warm and dry and without overt rashes. Neck without JVD, thyroid appears normal, trachea is midline, neck is supple. Lungs clear, normal air movement was noted. Heart exam notable for regular rhythm, normal sounds and absence of murmurs, rubs or gallops. Abdomen unremarkable and without evidence of organomegaly, masses, or abdominal aortic enlargement, bowel sounds are present in all 4 quadrants, no abdominal tenderness was noted. Extremities nonedematous, no cyanosis was noted, no clubbing was noted. Neuro: Cranial nerves II through XII are grossly intact, no focal motor deficits were noted, sensation to light touch and pinprick is intact, motor exam 5/5 throughout. Psych: Patient is alert and oriented x3, she does not appear anxious or depressed, she does not appear agitated. Patient appear to be stable for discharge home on 10/31/2023 Weight / BMI Weight Weight: 79.7 kg Body Mass Index (BMI) 34.3 ABG / Lab / Microbiology Data 10/30/23 04:13 10/31/23 07:15 Laboratory: Laboratory Results - last 24 hr 10/30/23 16:29: POC Glucose 270 H 10/30/23 21:10: POC Glucose 226 H 10/31/23 06:06: POC Glucose 98 10/31/23 07:15: WBC Cancelled, Corrected WBC Cancelled, RBC Cancelled, Hgb Cancelled, Hct Cancelled, MCV Cancelled, MCH Cancelled, MCHC Cancelled, RDW Std Deviation Cancelled, RDW Coeff of [place] Cancelled, Plt Count Cancelled, MPV Cancelled, Immature Gran % (Auto) Cancelled, Neut % (Auto) Cancelled, Lymph % (Auto) Cancelled, [place] % (Auto) Cancelled, Eos % (Auto) Cancelled, Baso % (Auto) Cancelled, Absolute Neuts (auto) Cancelled, Absolute Lymphs (auto) Cancelled, Total Counted Cancelled, Neutrophils % (Manual) Cancelled, Band Neutrophils % Cancelled, Lymphocytes % (Manual) Cancelled, Monocytes % (Manual) Cancelled, Eosinophils % (Manual) Cancelled, Basophils % (Manual) Cancelled, Metamyelocytes % Cancelled, Myelocytes % Cancelled, Promyelocytes % Cancelled, Blast Cells % Cancelled, Plasma Cell % (Manual) Cancelled, Other Cells % Cancelled, Nucleated RBC % Cancelled, Nucleated RBCs/100 WBC Cancelled, Differential Comment Cancelled, Diff Path Review Cancelled, Hypersegmented Neuts Cancelled, Atypical Lymphocytes Cancelled, Reactive Lymphocytes Cancelled, Smudge Cells Cancelled, Toxic Granulation Cancelled, Toxic Vacuolation Cancelled, Dohle Bodies Cancelled, Sherri Rods Cancelled, Platelet Estimate Cancelled, Plt Morphology Comment Cancelled, RBC Morphology Cancelled 10/31/23 07:15: RBC Morphology Cancelled, Polychromasia Cancelled, Hypochromasia Cancelled, Basophilic Stippling Cancelled, Anisocytosis Cancelled, Microcytosis Cancelled, Macrocytosis Cancelled, Spherocytes Cancelled, Sickle Cells Cancelled, Target Cells Cancelled, Tear Drop Cells Cancelled, Ovalocytes Cancelled, Stomatocytes Cancelled, Ricks-Duenweg Bodies Cancelled, Emelina Cells Cancelled, Bite Cells Cancelled, Crenated Cell Cancelled, Acanthocytes (Spur) Cancelled, Rouleaux Cancelled, Schistocytes Cancelled, Sodium 141, Potassium 3.3 L, Chloride 110 H, Carbon Dioxide 26.0, Anion Gap 5, BUN 35 H, Creatinine 1.18 H, Estim Creat Clear Calc 36.12, Est GFR (MDRD) Af Amer 57 L, Est GFR (MDRD) Non-Af 47 L, BUN/Creatinine Ratio 29.7 H, Glucose 98, Calcium 9.2, Total Bilirubin 0.50, AST 9 L, ALT 17, Alkaline Phosphatase 55, Total Protein 6.2 L, Albumin 2.0 L, Globulin 4.2, Albumin/Globulin Ratio 0.5 L 10/31/23 11:56: POC Glucose 233 H Microbiology: Microbiology 10/22/23 13:13 Blood Culture (Wb) - Left Hand Blood Culture - Final No growth in 5 days. 10/22/23 13:47 Urine Catheter - Catheter Urine Culture - Final Escherichia coli 10/23/23 08:55 Mucosa - Nasopharyngeal Coronavirus COVID-19 PCR - Final SARS-CoV-2 (COVID 19 PCR) 10/22/23 17:15 Mucosa - Nose Respiratory Panel (PCR) - Final 10/22/23 13:47 Urine Catheter - Catheter Legionella Antigen - Final 10/22/23 13:47 Urine Catheter - Catheter Streptococcus pneumoniae Antigen (M - Final D/C Instructions Discharge Diet: - (Meds whole in applesauce, chin tuck for all p.o. intake) Weight Bearing Status: Full weight bearing Meaningful Use Info Meaningful Use Meaningful Use Diagnoses (Choose all that apply): None applicable Ischemic Stroke Statin Dosing Therapy Reference: STATIN DOSE THERAPY REFERENCE: * Patients > 75 years receive moderate or high dose statin therapy. * Patients 75 years or YOUNGER should receive HIGH intensity statin dose unless contraindicated. You will be required to document reason for non-treatment if statin daily dose does not meet guidelines. HIGH DOSE STATIN THERAPY DAILY Atorvastatin > than or = to 40 mg Rosuvastatin > than or = to 20 mg Amlodipine + Atorvastatin > than or = to 2.5/40 mg Ezetimibe + Simvastatin 10/80 mg Simvastatin 80mg Discharge Plan Admission Admit Date/Time: 10/22/23 15:39 Primary Reason for Your Visit: COVID-19 pneumonia Attending Provider: Jovanni Sanchez Primary Care Provider: Flavia Aldrich Consulting Providers: Patricia Villarreal; Mateo Talamantes Discharge Orders/Prescriptions Prescriptions: New furosemide 40 mg Tablet 40 mg PO DAILY Qty: 30 0RF Continued fish oil-dha-epa 1,200-144-216 mg capsule 1,200 cap PO DAILY esomeprazole magnesium [Nexium] 20 mg capsule,delayed release(DR/EC) 20 mg PO .QOD atenolol 25 mg tablet 50 mg PO DAILY levothyroxine [Synthroid] 125 mcg tablet 125 mcg PO DAILY losartan 50 mg tablet 100 mg PO DAILY simvastatin 40 mg tablet 40 mg PO DAILY ferrous sulfate [FeroSul] 325 mg (65 mg iron) tablet 325 mg PO Q OTHER DAY glimepiride 1 mg tablet 1 mg PO DAILY multivitamin 1 EACH tablet 1 ea PO DAILY Januvia 50 MG tablet 50 mg PO DAILY magnesium oxide 400 MG tablet 400 mg PO DAILYCM nystatin [Nyamyc] 100,000 unit/gram powder 1 applic topical BID Protocol: *Topical Application Instructions APPLICATION INSTRUCTIONS: apply to affected areas sertraline 50 MG tablet 50 mg PO DAILY ondansetron 4 mg tablet,disintegrating 4 mg PO Q8H PRN (Reason: nausea and vomiting) Qty: 14 0RF aspirin 81 mg tablet,delayed release (DR/EC) 81 mg PO BREAKFAST Referrals / Follow Up: Flavia Aldrich MD [Primary Care Provider] - 11/08/23 3:20 pm Disposition Disposition (needs filled in before D/C Order can be placed): Home Health Service Charges/Coding Visit Charges Inpatient E&M: 51715 Disch Hosp >30min
--- NOTE | 2023-10-31 14:37 | CASEMGMT ---
Patient has order for discharge. EDNA OBREGON updated [facility], plan is for start of care for tomorrow. Patient qualifies for home oxygen with portability, [place] [facility] [place] [facility]. EDNA OBREGON arranged for portable tank to be delivered to patient's room prior to discharge. EDNA OBREGON in to patient's room to discuss needs at discharge. Patient updated regarding [facility] start of care for tomorrow. EDNA OBREGON updated patient regarding portable oxygen delivery. Patient inquired about pureed diet and speech therapy, EDNA OBREGON discussed ST at discharge with [facility]. Patient had no further questions or concerns. EDNA OBREGON added ST therapy to [facility] order and updated [facility]. Discharge plan updated.
== END 2023-10-31 17:36 | disposition home health service (06) | DRG 177 ==
LOC: ED 16:03 → PCU 16:41
PROVIDERS: Internal Medicine; Internal Medicine Critical Care Medicine; Admitting Provider Family Medicine; Emergency Provider Emergency Medicine; PCP Internal Medicine; Visit Provider Internal Medicine
DX: U07.1 COVID-19 (principal); J96.01 Acute respiratory failure with hypoxia; J12.82 Pneumonia due to coronavirus disease 2019; I50.33 Acute on chronic diastolic (congestive) heart failure; J15.9 Unspecified bacterial pneumonia; N17.9 Acute kidney failure, unspecified; I13.0 Hypertensive heart and chronic kidney disease with heart failure and stage 1 through stage 4 chronic kidney disease, or unspecified chronic kidney disease; D63.1 Anemia in chronic kidney disease; E11.22 Type 2 diabetes mellitus with diabetic chronic kidney disease; N18.31 Chronic kidney disease, stage 3a; E03.9 Hypothyroidism, unspecified; F32.A Depression, unspecified; I05.0 Rheumatic mitral stenosis; I69.391 Dysphagia following cerebral infarction; E66.9 Obesity, unspecified; I48.0 Paroxysmal atrial fibrillation; E11.40 Type 2 diabetes mellitus with diabetic neuropathy, unspecified; D50.9 Iron deficiency anemia, unspecified; I25.10 Atherosclerotic heart disease of native coronary artery without angina pectoris; E78.5 Hyperlipidemia, unspecified; K21.9 Gastro-esophageal reflux disease without esophagitis; G47.33 Obstructive sleep apnea (adult) (pediatric); Z79.4 Long term (current) use of insulin; F41.9 Anxiety disorder, unspecified; Z89.422 Acquired absence of other left toe(s); R82.71 Bacteriuria; Z66 Do not resuscitate; Z68.36 Body mass index [BMI] 36.0-36.9, adult; Z79.01 Long term (current) use of anticoagulants; Z79.82 Long term (current) use of aspirin; Z79.84 Long term (current) use of oral hypoglycemic drugs; Z79.899 Other long term (current) drug therapy
CPT/HCPCS: 36415; 36569; 71045; 71275; 80048; 80053; 81001; 82962; 83036; 83605; 83880; 84075; 84145; 84484; 85025; 85610; 85730; 87040; 87077; 87086; 87088; 87186; 87449; 87633; 87635; 87641; 92526; 92610; 92612; 93005; 94640; 94660; 94668; 94762; 97110; 97162; 97166; 97530; 97535; 99285; J7030; J7050; Q9967; A4216; J0248; J1940